=== PATIENT | female | born 1960 | race Caucasian/White ===

== ENCOUNTER → 2018-02-22 | Outpatient (CLI) | payer OTHER ==
[~2018-02-22] MED LIST: dandelion root; vinegar
--- NOTE | 2018-02-23 15:33 | ECHOCARDIOGRAM REPORT ---
*NOTICE TO RECEIVING REPUBLICAN AGENCY This information is strictly Confidential and protected under [place] law. [place] law prohibits you from making any further disclosure of this information unless further disclosure is expressly permitted by the written consent of the person to whom it pertains or is authorized by law. A general authorization for the release of medical or other information is not sufficient for this purpose. Hospital accepts no responsibility if the information is made available to any other person, INCLUDING THE PATIENT. Interpretation Summary * : HERB ALTAMIRANO Study Date: 02/22/2018 01:42 PM BP: 190/62 mmHg * Patient Location: [facility] HR: 72 * : 1960 (M/d/yyyy) Gender: Female Height: 64 in * Age: 57 yrs Ethnicity: [place] Weight: 155 lb * Ordering Physician: Allie Horn * Referring Physician: Allie Horn PA-C * Performed By: Ginger Becker RDCS * * Reason For Study: SYSTOLIC MURMUR * BSA: 1.8 m2 * -- Conclusions -- * 1. Normal LV size, borderline concentric LVH. * 2. LVEF >70%. No regional wall motion abnormalities. * 3. Normal RV size and function. * 4. Aortic valve sclerosis without stenosis. Procedure Details * A complete two-dimensional transthoracic echocardiogram was performed (2D, M-mode, Doppler and color flow Doppler). Left Ventricle * The left ventricle is grossly normal size. * There is borderline concentric left ventricular hypertrophy. * Ejection Fraction = >70 %. * No regional wall motion abnormalities noted. Right Ventricle * The right ventricle is grossly normal size. * The right ventricular systolic function is normal as assessed by tricuspid annular plane systolic excursion (TAPSE) (normal >1.5 cm). Atria * The left atrial size is normal. * Right atrial size is normal. * No ASD detected; PFO is not assessed. Mitral Valve * The mitral valve is grossly normal. * There is no mitral valve stenosis. * There is trace mitral regurgitation. Tricuspid Valve * Significant tricuspid regurgitation is absent. Aortic Valve * The aortic valve is trileaflet. * Aortic valve sclerosis mild, without significant aortic valvular stenosis. * No hemodynamically significant valvular aortic stenosis. * There is no significant aortic regurgitation. Pulmonic Valve * The pulmonary valve is inadequately visualized, but the Doppler data is adequate for interpretation. Great Vessels * The aortic root and proximal ascending aorta are normal sized. Pericardium/Pleural * There is no pericardial effusion. Great Vessels * Normal inferior vena cava size and collapsability with sniff indicates a normal right atrial pressure of 3 mmHg MMode 2D Measurements and Calculations IVSd 1.3 cm IVSs 1.7 cm LVIDd 3.7 cm LVIDs 2.6 cm LVPWd 1.1 cm LVPWs 1.4 cm IVS/LVPW 1.2 FS 29.1 % EDV(Teich) 59.3 ml ESV(Teich) 25.6 ml EF(Teich) 56.7 % EDV(cubed) 51.9 ml ESV(cubed) 18.5 ml EF(cubed) 64.4 % % IVS thick 27.9 % % LVPW thick 25.5 % LV mass(C)d 148.7 grams LV mass(C)dI 84.7 grams/m\S\2 LV mass(C)s 137.7 grams LV mass(C)sI 78.5 grams/m\S\2 SV(Teich) 33.6 ml SI(Teich) 19.2 ml/m\S\2 SV(cubed) 33.5 ml SI(cubed) 19.1 ml/m\S\2 Ao root diam 2.6 cm Ao root area 5.2 cm\S\2 LA dimension 3.7 cm LA/Ao 1.4 LVAd ap4 26.1 cm\S\2 LVLd ap4 8.1 cm EDV(MOD-sp4) 68.1 ml EDV(sp4-el) 71.8 ml LVAs ap4 14.8 cm\S\2 LVLs ap4 6.8 cm ESV(MOD-sp4) 26.7 ml ESV(sp4-el) 27.2 ml EF(MOD-sp4) 60.8 % EF(sp4-el) 62.1 % SV(MOD-sp4) 41.4 ml SI(MOD-sp4) 23.6 ml/m\S\2 SV(sp4-el) 44.6 ml SI(sp4-el) 25.4 ml/m\S\2 Doppler Measurements and Calculations MV E max andrew 108.9 cm/sec MV A max andrew 95.4 cm/sec MV E/A 1.1 MV dec time 0.26 sec Ao V2 max 195.0 cm/sec Ao max PG 15.2 mmHg Ao max PG (full) 7.9 mmHg LV V1 max PG 7.3 mmHg LV V1 max 135.5 cm/sec
== END | disposition home or self-care (01) ==
LOC: C.CPL 13:34
PROVIDERS: ATTEND Physician Assistant
DX: R01.1 Cardiac murmur, unspecified (principal)

== ENCOUNTER 2020-04-15 11:00 | Inpatient (IN) ==
[2020-04-15] MEDS ORDERED: THIAMINE HCL 200 MG in SODIUM CHLORIDE 0.9% 50 ML IV STA (11:13)
[2020-04-15] MEDS ORDERED: ONDANSETRON INJ 2 MG/ML 2 ML VIAL IV STA (11:13)
[2020-04-15] MEDS ORDERED: FOLIC ACID 1 MG in SYRINGE 9.8 ML IV STA (11:13)
[2020-04-15] MEDS ORDERED: SODIUM CHLORIDE 0.9% 1000ML 1,000 ML IV SCH (11:15)
[2020-04-15 11:39] LABS: Basophils # (auto) 0.01 K/uL (0-0.2); Basophils % (auto) 0.2 %; Hematocrit (blood only) 33.2 % (37-47); Hemoglobin 11.7 g/dL (12.0-16.0); Immature Granulocytes # (auto) 0.02 K/uL (0.00-0.02); Immature Granulocytes % (auto) 0.4 %; Lymphocytes # (auto) 0.58 K/uL (1.2-3.4); Lymphocytes % (auto) 11.1 %; Mean Corpuscular Hemoglobin 34.6 pg (25-34); Mean Corpuscular Hgb Conc 35.2 g/dL (32-36); Mean Corpuscular Volume 98.2 fL (80-100); Mean Platelet Volume 10.8 fL (7.4-10.4); Monocytes # (auto) 0.41 K/uL (0.11-0.59); Monocytes % (auto) 7.8 %; Neutrophils # (auto) 4.22 K/uL (1.4-6.5); Neutrophils % (auto) 80.5 %; Platelet Count 165 K/uL (130-400); RDW Coefficient of Variation 13.6 % (11.5-14.5); RDW Standard Deviation 48.4 fL (36.4-46.3); Red Blood Count 3.38 M/uL (4.2-5.4); White Blood Count 5.24 K/uL (4.8-10.8)
[2020-04-15 12:00] LABS: Alanine Aminotransferase 65 U/L (12-78); Albumin Level 2.9 gm/dl (3.4-5.0); Aspartate Aminotransferase 129 U/L (15-37); BUN Creatinine Ratio 8.6 (10-20); Blood Urea Nitrogen 7 mg/dl (7-18); Calcium 6.7 mg/dl (8.5-10.1); Carbon Dioxide 34 mmol/L (21-32); Chloride 83 mmol/L (98-107); Est GFR (African American) 93.5; Est GFR (Non-African American) 80.7; Glucose 234 mg/dl (70-99); Magnesium 0.6 mg/dl (1.8-2.4); Potassium 2.9 mmol/L (3.5-5.1); Sodium 128 mmol/L (136-145)
[2020-04-15 12:13] LABS: Albumin Globulin Ratio 0.7 (0.9-2); Alkaline Phosphatase 186 U/L (45-117); Bilirubin,Total 1.4 mg/dl (0.2-1); Phosphorus 3.2 mg/dl (2.5-4.9); Total Protein 6.9 gm/dl (6.4-8.2)
[2020-04-15] MEDS: MAGNESIUM SULFATE / D5W 1 GM/100 ML BAG IV STA ×2 (12:38→14:30)
[2020-04-15 12:39] LABS: T4 Free Thyroxine 1.38 ng/dl (0.8-1.6)
--- NOTE | 2020-04-15 12:40 | Emergency Department Note ---
Impression & Plan Alcohol withdrawal syndrome, Hypomagnesemia, Hypokalemia, Hyperglycemia, Hypocalcemia ED Provider Note NAME: HERB ALTAMIRANO AGE: 59 SEX: F : 1960 ARRIVES VIA: Walk-In INFORMANT: Patient, ED PROVIDER(S): Juan Manuel Burt MD Chief Complaint: Alcohol withdrawal shakiness HPI: Patient does present with concern for alcohol withdrawal and shakiness. Patient states that she is having some difficulty walking because of her shakiness. The patient typically drinks approximately one-point of vodka per day. The patient states that she has not had a drink since yesterday morning. The patient does admit to tobacco use. The patient has had some mild associated nausea but without vomiting. The patient denies fevers, chills, chest pains, shortness of breath. The patient ROS: See HPI for pertinent positives and negatives. A total of 10 systems were reviewed and otherwise negative. Past medical history: See below Surgical history: See below Social history: See below Physical Exam: GENERAL: Disheveled in appearance. Dirty hands. EYE EXAM: Normal conjunctiva. PERRL, no anisocoria and EOM's grossly intact w/o pain NECK: Supple, no nuchal rigidity, no adenopathy, non-tender. No signs of meningismus. LUNGS: Clear to auscultation. Normal chest wall mechanics. HEART: NSR, no MRG. ABDOMEN: Abdomen soft, non-tender, normo-active bowel sounds, no masses, no rebound or guarding. BACK: No CVA TTP. SKIN: No rashes and no bruising. UPPER EXTREMITIES: Bilateral upper extremity intention tremor noted. LOWER EXTREMITIES: Grossly normal, no edema. NEURO EXAM: Awake alert follows commands, tremulous, normal speech, moves all 4 extremities. Denies any sensory deficits. Differential diagnoses: Infection, dehydration, metabolic abnormality, hypo/hyperglycemia, electrolyte disturbance, anemia, hypoxia, cardiac sources, intracerebral event, toxicologic, neurologic, as well as other pathologies. Course: Patient was seen and evaluated the bedside. Full history physical exam was performed. EKG: Indication: Alcohol withdrawal Normal sinus rhythm, rate 85, prolonged QT normal KS and QRS, normal axis, no obvious ST changes. QT is lengthened from comparison EKG February 13, 2009. Imaging Studies: Radiology results as stated below per my review in the radiologist's interpretation: Cardiac monitoring: An order was placed for continuous cardiac monitoring. The monitor shows a rate of 95 with sinus rhythm. MDM: Patient does present with concern for alcohol withdrawal and shakiness. Patient did have blood work completed was ordered IV Valium 5 mg and then every 15 minutes as needed for withdrawal type symptoms. Patient has a normal white count. Patient has a very mild anemia with normal platelet count. Patient does have associated hypomagnesemia hypokalemia and hyponatremia. Patient was ordered additional IV fluids. Alcohol is negative. TSH is elevated. I did speak with the on-call hospitalist who agreed to further evaluate treat patient. Patient was admitted to the medicine service. Patient was ordered potassium and calcium. Critical Care: I have personally spent 40 minutes of critical care time in direct management of this patient. This includes bedside care, interpretation of diagnostic studies, and testing, discussion with consultants, patient, and family members, and other require inpatient management activities. This 40 minutes is in excess of all separately billable procedures. Past Med/Surg History Medical History Alcohol abuse Surgical History (Updated 04/15/20 @ 12:36 by Juan Manuel Burt MD) No pertinent past surgical history Social History (Updated 04/15/20 @ 12:36 by Juan Manuel Burt MD) Smoking Status: Current every day smoker Cigarettes Per Day: 20; Hx Alcohol Use: Yes Alcohol type: hard liquor Hx Substance Use: No Preferred Language: [place] Communication Ability: Effective Beliefs That Will Affect Care: None Current Living Situation: Significant Other Other Information That Helps Us Care for You: No Feels Safe at Home: Yes Safety Concerns: Feels Safe At This Time Allergies Allergies Allergy/AdvReac Type Severity Reaction Status Date / Time No Known Allergies Allergy Verified 04/15/20 13:40 Home Meds Home Medications Medication Instructions Recorded Confirmed No Known Home Medications 04/15/20 04/15/20 Results & Data (ED) Vital Signs Vital Signs - 24 hr 04/15/20 11:04 04/15/20 11:13 04/15/20 11:16 Temperature 36.5 C Temperature Source Oral Pulse Rate 107 H 97 H Pulse Rate from SpO2 Sensor 100 H Respiratory Rate 22 21 Respiratory Effort / Characteristics Non-Labored Spontaneous Respiratory Depth Normal Blood Pressure 154/83 H 198/83 H Blood Pressure Mean 106 146 Pulse Oximetry 100 99 100 Oxygen Delivery Method Room Air Room Air Sepsis Recent Fever Within 48 Hours No Sepsis New/Unexplained Change in Mental Status N/A Sepsis Action Taken by Nursing No Action Required 04/15/20 11:34 04/15/20 12:00 04/15/20 12:30 Temperature Temperature Source Pulse Rate 95 H 85 86 Pulse Rate from SpO2 Sensor 85 86 Respiratory Rate 23 18 23 Respiratory Effort / Characteristics Respiratory Depth Blood Pressure 164/95 H 157/83 H 136/74 Blood Pressure Mean 119 98 92 Pulse Oximetry 99 99 99 Oxygen Delivery Method Sepsis Recent Fever Within 48 Hours Sepsis New/Unexplained Change in Mental Status Sepsis Action Taken by Nursing 04/15/20 13:00 Temperature Temperature Source Pulse Rate 86 Pulse Rate from SpO2 Sensor 87 Respiratory Rate 18 Respiratory Effort / Characteristics Respiratory Depth Blood Pressure 158/89 H Blood Pressure Mean 112 Pulse Oximetry 99 Oxygen Delivery Method Sepsis Recent Fever Within 48 Hours Sepsis New/Unexplained Change in Mental Status Sepsis Action Taken by Half-Way Medications Current Medication List: was personally reviewed by me Laboratory Data Result diagrams: 04/15/20 11:22 04/15/20 11:22 Lab Results 04/15/20 04/15/20 04/15/20 Range/Units 11:22 11:22 11:28 WBC 5.24 (4.8-10.8) K/uL RBC 3.38 L (4.2-5.4) M/uL Hgb 11.7 L (12.0-16.0) g/dL Hct 33.2 L (37-47) % MCV 98.2 (80-100) fL MCH 34.6 H (25-34) pg MCHC 35.2 (32-36) g/dL RDW Std Deviation 48.4 H (36.4-46.3) fL RDW Coeff of Francis 13.6 (11.5-14.5) % Plt Count 165 (130-400) K/uL MPV 10.8 H (7.4-10.4) fL Immature Gran % (Auto) 0.4 % Neut % (Auto) 80.5 % Lymph % (Auto) 11.1 % Beauregard % (Auto) 7.8 % Eos % (Auto) 0.0 % Baso % (Auto) 0.2 % Neut # (Auto) 4.22 (1.4-6.5) K/uL Lymph # (Auto) 0.58 L (1.2-3.4) K/uL Beauregard # (Auto) 0.41 (0.11-0.59) K/uL Eos # (Auto) 0.00 (0-0.5) K/uL Baso # (Auto) 0.01 (0-0.2) K/uL Immature Gran # (Auto) 0.02 (0.00-0.02) K/uL Sodium 128 L (136-145) mmol/L Potassium 2.9 L (3.5-5.1) mmol/L Chloride 83 L (98-107) mmol/L Carbon Dioxide 34 H (21-32) mmol/L Anion Gap 11.0 (3-11) BUN 7 (7-18) mg/dl Creatinine 0.80 (0.6-1.2) mg/dl Est Cr Clr Drug Dosing Not Reportable Est GFR ( Amer) 93.5 Est GFR (Non-Af Amer) 80.7 BUN/Creatinine Ratio 8.6 L (10-20) Glucose 234 H (70-99) mg/dl Calcium 6.7 L (8.5-10.1) mg/dl Phosphorus 3.2 (2.5-4.9) mg/dl Magnesium 0.6 L* (1.8-2.4) mg/dl Total Bilirubin 1.4 H (0.2-1) mg/dl AST 129 H (15-37) U/L ALT 65 (12-78) U/L Alkaline Phosphatase 186 H (45-117) U/L Total Protein 6.9 (6.4-8.2) gm/dl Albumin 2.9 L (3.4-5.0) gm/dl Globulin 4.0 (2.5-4.0) gm/dl Albumin/Globulin Ratio 0.7 L (0.9-2) TSH 5.180 H (0.300-4.500) uIu/ml Free T4 1.38 (0.8-1.6) ng/dl Ethyl Alcohol mg/dL < 3.0 (0-3) mg/dl Administered Medications Diazepam (Diazepam 5 Mg/Ml Inj 10ml Vial) 5 mg IV Q15M PRN PRN Reason: Alcohol Withdrawal Stop: 05/15/20 11:26 Last Admin: 04/15/20 14:28 Dose: 5 mg Documented by: [id number] Potassium Chloride (K [place] / Wtr) 10 meq in 100 mls @ 100 mls/hr IV Q1H MARYBETH Stop: 04/15/20 16:14 Last Admin: 04/15/20 14:34 Dose: 100 mls/hr Documented by: [id number] Discontinued Medications Diazepam (Diazepam 5 Mg/Ml Inj 10ml Vial) 5 mg IV NOW STA Stop: 04/15/20 11:28 Last Admin: 04/15/20 11:34 Dose: 5 mg Documented by: [id number] Sodium Chloride (Nss 1000ml) 1,000 mls @ 999 mls/hr IV .Q1H1M MARYBETH Stop: 04/15/20 12:15 Last Infusion: 04/15/20 12:36 Dose: 0 mls/hr Documented by: [id number] Admin: 04/15/20 11:35 Dose: 999 mls/hr Documented by: [id number] Folic Acid 1 mg/ Syringe 10 mls @ 5 mls/min IV NOW STA Stop: 04/15/20 11:14 Last Admin: 04/15/20 11:37 Dose: 5 mls/min Documented by: [id number] Thiamine HCl 200 mg/ Sodium (Chloride) 52 mls @ 208 mls/hr IV NOW STA Stop: 04/15/20 11:27 Last Infusion: 04/15/20 11:53 Dose: 0 mls/hr Documented by: [id number] Admin: 04/15/20 11:38 Dose: 208 mls/hr Documented by: [id number] Magnesium Sulfate/Dextrose (Magnesium Sulfate / D5w) 1 gm in 100 mls @ 50 mls/hr IV Q2H STA Stop: 04/15/20 14:32 Last Admin: 04/15/20 14:30 Dose: 100 mls/hr Documented by: [id number] Infusion: 04/15/20 14:30 Dose: 0 mls/hr Documented by: [id number] Admin: 04/15/20 12:38 Dose: 50 mls/hr Documented by: [id number] Ondansetron HCl (Ondansetron Inj 2 Mg/Ml 2 Ml Vial) 4 mg IV NOW STA Stop: 04/15/20 11:14 Last Admin: 04/15/20 11:34 Dose: 4 mg Documented by: [id number] Discharge Plan Visit Data Chief Complaint: Alcohol Withdrawal Stated Complaint: ALCOHOLIC, SHAKING, CANT WALK ED Provider: Juan Manuel Burt Discharge Problem: Alcohol withdrawal syndrome, Hypomagnesemia, Hypokalemia, Hyperglycemia, Hypocalcemia Forms Stand Alone Forms: [employer] Prescriptions Prescriptions: No Action No Known Home Medications RF: 0 Discharge Problem: Alcohol withdrawal syndrome Qualifiers: Complication of substance-induced condition: uncomplicated Qualified Code(s): F10.230 - Alcohol dependence with withdrawal, uncomplicated
[2020-04-15] MEDS ORDERED: CALCIUM GLUCONATE 10% 10 ML VIAL IV STA (14:14)
[2020-04-15] MEDS: POTASSIUM CHLORIDE / WTR 10 MEQ/100 ML PLCT IV SCH ×5 (14:34→22:05)
--- NOTE | 2020-04-15 15:29 | History & Physical Report ---
Date of Service April 15, 2020 Assessment & Plan (1) Alcohol withdrawal syndrome: Mildly agitated on exam. Ethanol level negative on admission. AWSS, lorazepam IV 1-3mg as needed per protocol. Will also treat with gabapentin to help with peripheral neuropathy in addition to alcohol withdrawal. (2) Hypokalemia: No significant EKG abnormalities with potassium 2.9. Potassium chloride 20 meq IV given in ER. Add 40 meq PO. Repeat BMP @ 16:00. (3) Hypocalcemia: 2 g calcium gluconate IV given in ER. Continue to monitor with BMP. (4) Hypomagnesemia: Magnesium level 0.6 on admission. Unclear if tremors are due to this versus alcohol withdrawal. Mg Sulphate 4g IV started in ER. Will repeat with AM labs. (5) Chronic alcohol use: Significantly malnourished. Will get daily phosphorus levels as possibly at risk for refeeding syndrome. Once potassium is more stable. (6) Abnormal gait: Likely affected by peripheral neuropathy. Difficult to rule out Wernicke's encephalopathy and will prophylactically treat with 200 mg IV thiamine 3 times daily. PT/OT eval and treat. (7) Hypertension: Prior history of this. On no outpatient medication. Treatment deferred on admission until electrolyte abnormalities corrected. (8) Peripheral neuropathy: B12 level with a.m. labs Suspect secondary to diabetes, gabapentin should help as above. Consider continuation of gabapentin beyond alcohol withdrawal treatment. (9) Type 2 diabetes mellitus: Unknown HbA1c. Hypoglycemia on admission. Treatment with insulin deferred until potassium increased and stable. (10) Tinea pedis: Clotrimazole cream twice daily (11) Sacral decubitus ulcer, stage IV: Consult wound care nurse. (12) Tobacco use: Declined nicotine replacement products at this time. (13) Contact dermatitis: Irritant dermatitis versus on bilateral lower extremities. Appearance and normal WBC would favor the former diagnosis therefore area has been marked and will monitor for expansion. Blood cultures taken. (14) Left leg swelling: Ultrasound venous Doppler to rule out DVT. (15) DVT prophylaxis: No SCDs due to significant peripheral neuropathy. We will dose Lovenox pending results of ultrasound Doppler as above. Admission and Anticipated Discharge Date Admission Date: April 15, 2020 History of Present Illness Chief Complaint: Alcohol withdrawal Primary Care Provider: Allie Horn PA-C Sumaya Marquez is a 59-year-old female who presents to the ER due to concerns for alcohol withdrawal. She reports drinking a pint of vodka per day. She has done this for many years. She reports her last drink was 2 days ago. She feels she wants to give up permanently. She offers no reason what prompted her to suddenly want to give up alcohol. She has never tried to give up alcohol before. She has no history of alcohol withdrawal seizures. Her alcohol consumption has increased in the last 2 years. She reports a willingness to go to alcohol rehabilitation. She declines me contacting any family or friends. She has been struggling now to get around for the last week with increased ambulatory dysfunction which she feels is unrelated to alcohol intoxication. She is aware she has diabetes but reports previously not wishing treatment for this as her mother took insulin and suffered with episodes of hypoglycemia and " ended up dying anyway". She reports having a peripheral neuropathy up to her knees and does not think this can get any worse therefore also wonders whether treatment for diabetes would be worthwhile. She notes her peripheral neuropathic pain is a large reason why she drinks alcohol. She denies ever having tried gabapentin. In the ER she was noted to have significant hypocalcemia, hypomagnesemia, hypokalemia, hyponatremia, hyperglycemia -treated with 2 g IV calcium gluconate, 4 g IV magnesium sulfate, 20 meq IV potassium chloride, NSS 1 L bolus. In addition she was given thiamine 200 mg IV. Valium 5mg IV x2 given for alcohol withdrawal. She was referred to medicine for ongoing management and admission. Allergies Allergy/AdvReac Type Severity Reaction Status Date / Time No Known Allergies Allergy Verified 04/15/20 13:40 Home Medications Home Medications Medication Instructions Recorded Confirmed Type No Known Home Medications 04/15/20 04/15/20 History Past Med/Surg History Medical History Alcohol abuse Hypertension Peripheral neuropathy Tinea pedis Type 2 diabetes mellitus Surgical History No pertinent past surgical history Social History Smoking Status: Current every day smoker Cigarettes Per Day: 20; Hx Alcohol Use: Yes Alcohol type: hard liquor Hx Substance Use: No Preferred Language: Slovenian Communication Ability: Effective Beliefs That Will Affect Care: None Current Living Situation: Significant Other Other Information That Helps Us Care for You: No Feels Safe at Home: Yes Safety Concerns: Feels Safe At This Time Review of Systems Review of Systems: All systems reviewed & are unremarkable except as noted in HPI & below Constitutional: + body aches and + fatigue; no chills Musculoskeletal: Difficulty dorsiflexing bilateral ankles Neurologic: + paresthesia Physical Exam Constitutional: + frail appearing, + disheveled and + malnourished; + not well nourished and no acute distress Eyes: PERRL, conjunctivae normal, anicteric sclerae EOM intact bilaterally (No diplopia); no nystagmus ENMT: Mouth: + dry oral mucous membranes and + poor dentition Neck: trachea midline Respiratory: normal respiratory effort, lungs clear to auscultation Cardiovascular: Rate/Rhythm: regular rate and regular rhythm Heart Sounds: no murmur Extremities: normal capillary refill (Bilateral feet), + calf tenderness (Bilateral) and + pedal edema (Trace bilateral ankles R > L) Gastrointestinal (Abdomen): normal bowel sounds, soft, nontender, no hepatosplenomegaly Musculoskeletal: Head/Neck/Chest: normocephalic and head atraumatic Skin: + rash (Bilateral lower extremity area marked distal to both knees, suspected irritant/contact dermatitis, less likely cellulitis), + ulcer (Stage IV sacral ulcer without surrounding cellulitis), + wound (Multiple on all 4 extremities with scabbing), + nails discolored and + nails dystrophic (Onychomycosis) Large amount of tinea pedis with associated skin maceration bilaterally Neurologic: moves all extremities, + focal motor deficit (Bilateral difficulty with dorsiflexion) and awake; not confused Speech / Cognition: normal speech Motor/Sensory: + tremor (Bilateral action) and + sensory deficit (Up to knees bilaterally with significant pain); no pronator drift Cranial Nerves: PERRL, EOM intact bilaterally, normal facial strength, tongue midline, able to rotate head bilaterally, able to elevate shoulders bilaterally, no nystagmus and symmetric palate elevation Lymphatic: no cervical or axillary lymphadenopathy Results & Data Results & Data ([facility]) Vital Signs (Past 12 Hours) Vital Signs Temp Pulse Resp BP Pulse Ox 04/15/20 15:01 89 15 153/83 H 94 04/15/20 14:30 82 20 132/75 96 04/15/20 14:00 85 20 154/73 H 99 04/15/20 13:31 90 18 133/98 100 04/15/20 13:00 86 18 158/89 H 99 04/15/20 12:30 86 23 136/74 99 04/15/20 12:00 85 18 157/83 H 99 04/15/20 11:34 95 H 23 164/95 H 99 04/15/20 11:16 97 H 21 198/83 H 100 04/15/20 11:13 99 04/15/20 11:04 36.5 C 107 H 22 154/83 H 100 ECG Indication: other (Hypokalemia) Rate (beats per minute): 85 Rhythm: normal sinus Findings: + prolonged QT (QTc 476 ms) Comparison ECG Date: from (February 13, 2009) Change: the following changes noted (QT interval lengthened) Code Status & VTE Plan Code Status Full VTE Prophylaxis Plan VTE Prophylaxis will be ordered: Yes Reason for no VTE mechanical prophylaxis: Contraindicated PG Care Time/CCT Total # of Minutes Spent Total Time Spent with Patient: Total time spent is greater than 50% in coordination of care (as documented) at patient's floor/unit and/or counseling patient: Coding Level of Care Code 65948 Initial Inpt Care Lvl 3 Diagnoses Alcohol withdrawal syndrome F10.230 Complication of substance-induced condition: uncomplicated Hypokalemia E87.6 Hypocalcemia E83.51 Hypomagnesemia E83.42 Chronic alcohol use Z72.89 Abnormal gait R26.9 Hypertension I10 Peripheral neuropathy G62.9 Type 2 diabetes mellitus E11.9 Tinea pedis B35.3 Sacral decubitus ulcer, stage IV L89.154 Tobacco use Z72.0 Contact dermatitis L25.9 Left leg swelling M79.89 DVT prophylaxis Z29.9 (1) Alcohol withdrawal syndrome Complication of substance-induced condition: uncomplicated Qualified Code(s): F10.230 - Alcohol dependence with withdrawal, uncomplicated
[2020-04-15] MEDS ORDERED: POTASSIUM CHLORIDE 20 MEQ TABCR PO STA ×2 (15:33→17:38)
[2020-04-15] MEDS ORDERED: FAMOTIDINE 20MG IV PUSH 20 MG/5 ML SYR IV STA (15:33)
[2020-04-15 16:23] LABS: INR 1.4 (0.9-1.1); Prothrombin Time 14.5 Seconds (9.0-12.0)
[2020-04-15] MEDS ORDERED: GABAPENTIN 800MG ALCOHOL WITHDRAWAL LOAD PO STA (16:28)
[2020-04-15] MEDS ORDERED: D5W AND 1/2NSS 1,000 ML IV SCH (16:28)
[2020-04-15] MEDS ORDERED: ACETAMINOPHEN 325 MG TAB PO PRN (16:28)
[2020-04-15] MEDS ORDERED: ATIVAN IV ALCOHOL WITHDRAWL IV PRN (16:28)
[2020-04-15] MEDS ORDERED: LORazepam 3 MG/6 ML VIAL IV PRN (16:28)
[2020-04-15] MEDS ORDERED: LORazepam 2 MG/4 ML VIAL IV PRN (16:28)
[2020-04-15 16:34] LABS: Alanine Aminotransferase 65 U/L (12-78); Albumin Globulin Ratio 0.7 (0.9-2); Albumin Level 2.8 gm/dl (3.4-5.0); Alkaline Phosphatase 181 U/L (45-117); Aspartate Aminotransferase 124 U/L (15-37); BUN Creatinine Ratio 8.8 (10-20); Bilirubin,Total 1.3 mg/dl (0.2-1); Blood Urea Nitrogen 6 mg/dl (7-18); C Reactive Protein 2.24 mg/dl (0-0.29); Calcium 7.5 mg/dl (8.5-10.1); Carbon Dioxide 32 mmol/L (21-32); Chloride 85 mmol/L (98-107); Est GFR (African American) 113.2; Est GFR (Non-African American) 97.7; Globulin 4.2 gm/dl (2.5-4.0); Glucose 171 mg/dl (70-99); Potassium 2.5 mmol/L (3.5-5.1); Sodium 130 mmol/L (136-145)
[2020-04-15] MEDS: CLOTRIMAZOLE 1% CR 15 GM TUBE EXT SCH (17:07)
[2020-04-15] MEDS ORDERED: DEXTROSE 50% 50 ML SYRINGE IV PRN (17:57)
[2020-04-15] MEDS ORDERED: GLUCAGON FOR INJ 1 MG VIAL SQ PRN (17:57)
[2020-04-15] MEDS ORDERED: GLUCOSE 10 TABS/TUBE PO PRN (17:57)
[2020-04-15] MEDS ORDERED: GLUCOSE 40% GEL 15 GM TUBE PO PRN (17:57)
[2020-04-15] MEDS ORDERED: CARBOHYDRATES FOR HYPOGLYCEMIA PO PRN (17:57)
[2020-04-15] MEDS ORDERED: GABAPENTIN 400 MG CAP PO ONE (18:00)
[2020-04-15 19:54] LABS: Appearance Urine Clear (Clear); Bacteria Urine Automated Negative (Negative); Bilirubin Urine Negative (Negative); Blood Urine Negative (Negative); Cast Urine Automated 0 /lpf (0-5); Color Urine Yellow; Epithelial Cell Urine Auto >30 /lpf (0-5); Glucose Urine UA 1+ (Negative); Ketones Urine Negative (Negative); Leukocyte Esterase Urine Negative (Negative); Nitrite Urine Negative (Negative); RBC Urine Automated 0-4 /hpf (0-4); Specific Gravity Urine 1.008 (1.000-1.030); Urobilinogen Urine Negative (Negative); pH Urine 7.5 (4.5-7.5)
[2020-04-15] MEDS: THIAMINE HCL 200 MG in SODIUM CHLORIDE 0.9% 50 ML IV SCH (19:55)
--- NOTE | 2020-04-15 20:03 | Electrocardiogram Report ---
Test Reason : Blood Pressure : / mmHG Vent. Rate : 085 BPM Atrial Rate : 085 BPM P-R Int : 138 ms QRS Dur : 074 ms QT Int : 400 ms P-R-T Axes : 030 034 058 degrees QTc Int : 476 ms Normal sinus rhythm Nonspecific ST and T wave abnormality Prolonged QT Abnormal ECG When compared with ECG of 13-FEB-2009 06:50, QT has lengthened Confirmed by Gonzalo Brito ([id number]) on 04/15/2020 8:02:38 PM Referred By: REFERRED SELF Confirmed By:Kj Brito
[2020-04-15 20:09] LABS: Protein Urine Negative (Negative); Sulfosalicylic Acid Urine Negative (Negative)
[2020-04-15 23:32] LABS: BUN Creatinine Ratio 6.2 (10-20); Calcium 6.2 mg/dl (8.5-10.1); Creatinine Clr Calc Pharmacy 73.7 ml/min; Est GFR (African American) 108.1; Est GFR (Non-African American) 93.2; Potassium 3.1 mmol/L (3.5-5.1)
[2020-04-16] MEDS ORDERED: PHYTONADIONE 5 MG TAB PO STA (00:07)
[2020-04-16] MEDS ORDERED: CALCIUM GLUCONATE 10% 2,000 MG in SODIUM CHLORIDE 0.9% 50 ML IV ONE (00:08)
[2020-04-16] MEDS: POTASSIUM CHLORIDE 40 MEQ in SODIUM CHLORIDE 0.45 % 1,000 ML IV SCH ×3 (00:46→21:34)
[2020-04-16] MEDS: GABAPENTIN 400 MG CAP PO SCH ×4 (00:47→21:34)
[2020-04-16 07:17] LABS: INR 1.4 (0.9-1.1); Prothrombin Time 14.1 Seconds (9.0-12.0)
[2020-04-16 07:48] LABS: Estimated Average Glucose 177 mg/dl; Hemoglobin A1C 7.8 % (4.5-5.6)
[2020-04-16 08:03] LABS: Albumin Globulin Ratio 0.7 (0.9-2); Albumin Level 2.6 gm/dl (3.4-5.0); Bilirubin,Total 1.1 mg/dl (0.2-1); Calcium 7.3 mg/dl (8.5-10.1); Creatinine Clr Calc Pharmacy 84.4 ml/min; Est GFR (African American) 114.4; Est GFR (Non-African American) 98.7; Globulin 3.7 gm/dl (2.5-4.0); Magnesium 1.5 mg/dl (1.8-2.4); Phosphorus 2.2 mg/dl (2.5-4.9); Potassium 3.5 mmol/L (3.5-5.1); Total Protein 6.3 gm/dl (6.4-8.2)
--- NOTE | 2020-04-16 08:18 | Ultrasound Report ---
LEFT LOWER EXTREMITY VENOUS DOPPLER HISTORY: Left lower extremity pain. COMPARISON STUDY: None. FINDINGS: There is normal compressibility, flow, and augmentation within the left lower extremity kelly p venous system. IMPRESSION: No DVT within the left lower extremity. ACT 112: Negative or not required by law. Electronically signed by: Shree Santiago M.D. 04/16/2020 8:17 AM
[2020-04-16] MEDS: THIAMINE HCL 200 MG in SODIUM CHLORIDE 0.9% 50 ML IV SCH ×3 (09:05→21:37)
[2020-04-16] MEDS: CLOTRIMAZOLE 1% CR 15 GM TUBE EXT SCH ×2 (09:11→21:34)
--- NOTE | 2020-04-16 09:23 | Hospitalist Progress Note ---
Date of Service April 16, 2020 Assessment & Plan (1) Alcohol withdrawal syndrome: Mildly agitated on exam. Ethanol level negative on admission. Continues with lorazepam and gabapentin. Clonidine added for hypertension which also can help her alcohol withdrawal (2) Bacteremia: Pt with both Gram positive and negative bacteria on blood cultures, suspect skin as source, will use vancomycin and Cefepime at this point pending further sensitivities check echo with Gram positive in blood repeat cultures once on antibiotics for 24 hours (3) Hypokalemia: Likely from poor nutritional status continue with intravenous repletion (4) Hypocalcemia: secondary to poor nutritional status, was given calcium, remains low (5) Hypomagnesemia: persists, additional supplement iv on 04/16 (6) Chronic alcohol use: continue to replete nurtition, thiamine given daily (7) Abnormal gait: Likely affected by peripheral neuropathy. Difficult to rule out Wernicke's encephalopathy and will prophylactically treat with 200 mg IV thiamine 3 times daily. PT/OT eval and treat. (8) Hypertension: Prior history of this. On no outpatient medication. (9) Peripheral neuropathy: B12 level replete Suspect secondary to diabetes, gabapentin should help as above. Consider continuation of gabapentin beyond alcohol withdrawal treatment. (10) Type 2 diabetes mellitus: A1c 7.8 offer sliding scale insulin (11) Tinea pedis: Clotrimazole cream twice daily (12) Tobacco use: Declined nicotine replacement products at this time. (13) Left leg swelling: Ultrasound venous Doppler negative for DVT. (14) DVT prophylaxis: No SCDs due to significant peripheral neuropathy. Lovenox for DVT prevention anticipate need for shelter facility at time of discharge Admission and Anticipated Discharge Date Admission Date: April 15, 2020 Subjective Patient slightly agitated she is not in much discomfort, her cellulitis has markedly improved she is still very weak, too weak to get to bedside commode Review of Systems Review of Systems: Mild distress and fatigue no headache, blurry or double vision no speech or swallowing issues no chest pain, pressure or palpitations no shortness of breath, cough or wheezes Diffuse mild pain some bloating and distention no focal joint pain or swelling no back pain, CVA tenderness or radicular pain Decubitus ulcer in her perineal area right greater trochanter and lower legs Significantly weakness to her lower extremities no complaints or anxiety or depression. Physical Exam Physical Exam: The patient appeared well nourished and normally developed. Vital signs as documented. Head exam is normocephalic atraumatic no scleral icterus Neck is without JVD, thyromegaly, or carotid bruits. Lungs are clear but diminished throughout Cardiac exam, Rhythm is regular.. No murmurs, rubs or gallops. Abdominal exam reveals normal bowel sounds, soft distended tympanitic and mildly tender Extremities are nonedematous and both lines of demarcation previously drawn showed no evidence of residual erythema Neurologic exam is alert and oriented, some tremor and anxiety Skin is with a 2-3 decubitus ulcer in her perineal area there is a eschar on her right greater trochanter area and multiple open areas to her lower extremities with significant onychomycosis with periungual irritation Psychologically is with terms of anxiety and alcohol withdrawal Results & Data Results & Data ([facility]) Vital Signs (Past 12 Hours) Vital Signs Temp Pulse Pulse Resp BP Pulse Ox 04/16/20 08:59 98.6 F 95 H 18 169/79 H 99 04/16/20 07:21 98.4 F 79 18 156/79 H 99 04/16/20 03:10 98.1 F 74 18 156/81 H 97 04/16/20 00:07 73 04/15/20 23:12 98.2 F 69 20 161/77 H 99 PG Care Time/CCT Total # of Minutes Spent Total Time Spent with Patient: Total time spent is greater than 50% in coordination of care (as documented) at patient's floor/unit and/or counseling patient: Coding Level of Care Code 95032 Subseq Hosp Care Lvl 3 Diagnoses Alcohol withdrawal syndrome F10.230 Complication of substance-induced condition: uncomplicated Bacteremia R78.81 Hypokalemia E87.6 Hypocalcemia E83.51 Hypomagnesemia E83.42 Chronic alcohol use Z72.89 Abnormal gait R26.9 Hypertension I10 Peripheral neuropathy G62.9 Type 2 diabetes mellitus E11.9 Tinea pedis B35.3 Tobacco use Z72.0 Left leg swelling M79.89 DVT prophylaxis Z29.9 (1) Alcohol withdrawal syndrome Complication of substance-induced condition: uncomplicated Qualified Code(s): F10.230 - Alcohol dependence with withdrawal, uncomplicated
[2020-04-16] MEDS ORDERED: VANCOMYCIN CONSULT ACTIVE PRN (09:24)
[2020-04-16] MEDS ORDERED: cloNIDine HCL 0.1 MG TAB PO PRN (09:30)
[2020-04-16] MEDS ORDERED: VANCOMYCIN HCL 1,500 MG in SODIUM CHLORIDE 0.9% 500 ML IV STA (09:34)
--- NOTE | 2020-04-16 09:37 | Electrocardiogram Report ---
Test Reason : Blood Pressure : / mmHG Vent. Rate : 083 BPM Atrial Rate : 083 BPM P-R Int : 144 ms QRS Dur : 076 ms QT Int : 408 ms P-R-T Axes : -27 039 055 degrees QTc Int : 479 ms Normal sinus rhythm Normal ECG When compared with ECG of 15-APR-2020 11:54, No significant change was found Confirmed by Robin Husain ([id number]) on 04/16/2020 9:36:35 AM Referred By: REFERRED SELF Confirmed By:Robin Husain
[2020-04-16] MEDS: MAGNESIUM SULFATE / D5W 1 GM/100 ML BAG IV SCH ×2 (09:54→12:03)
[2020-04-16] MEDS: CEFEPIME 2,000 MG in SYRINGE 0 ML IV SCH ×2 (09:54→18:13)
[2020-04-16] MEDS: ENOXAPARIN INJ 40 MG/0.4 ML SYR SQ SCH (10:25)
--- NOTE | 2020-04-16 11:23 | Pharmacy Report ---
Pharmacy Abx Dose Short Note - Date of Service April 16, 2020 - Assessment & Plan Assessment * Ms Marquez is a 59 year old F receiving Vancomycin/Cefepime for treatment of bacteremia (suspected d/t skin source -- pt with sacral decubitus ulcer and also b/l LE dermatitis). * PMH is significant for DM, EtOH abuse, current smoker, ,tinea pedis. Plan Vancomycin * Patient meets criteria for vancomycin AUC dosing nomogram * AUC/NASIM is the preferred PK/PD target for vancomycin * Target AUC/NASIM = 400-600 * AUC guided dosing is effective and associated with decreased risk of nephrotoxicity * Vancomycin 1500mg IV x1, followed by 1250mg IV q12h * Trough level ordered for: 04/18 prior to the 4th maintenance dose Cefepime 2gm IV q8h Pharmacy will continue to follow and will adjust dose/frequency as necessary. Thank you.
--- NOTE | 2020-04-16 12:54 | XCELERA ---
[id number]
[2020-04-16] MEDS ORDERED: ALUMINUM/MAGNESIUM SUSP 30 ML UDC PO PRN (17:11)
[2020-04-16] MEDS: VANCOMYCIN HCL 1,250 MG in SODIUM CHLORIDE 0.9% 250 ML IV SCH (21:37)
[2020-04-17] MEDS: CEFEPIME 2,000 MG in SYRINGE 0 ML IV SCH ×3 (03:13→18:34)
[2020-04-17] MEDS: GABAPENTIN 400 MG CAP PO SCH ×2 (05:55→18:55)
[2020-04-17 07:41] LABS: Magnesium 1.3 mg/dl (1.8-2.4); Phosphorus 1.4 mg/dl (2.5-4.9)
[2020-04-17] MEDS: POTASSIUM CHLORIDE 40 MEQ in SODIUM CHLORIDE 0.45 % 1,000 ML IV SCH ×2 (07:52→18:34)
[2020-04-17] MEDS: THIAMINE HCL 200 MG in SODIUM CHLORIDE 0.9% 50 ML IV SCH ×3 (08:42→20:21)
[2020-04-17] MEDS: CLOTRIMAZOLE 1% CR 15 GM TUBE EXT SCH ×2 (08:42→19:58)
[2020-04-17] MEDS: ENOXAPARIN INJ 40 MG/0.4 ML SYR SQ SCH (08:42)
[2020-04-17 10:14] LABS: Albumin Globulin Ratio 0.7 (0.9-2); Albumin Level 2.2 gm/dl (3.4-5.0); BUN Creatinine Ratio 9.1 (10-20); Calcium 6.6 mg/dl (8.5-10.1); Creatinine Clr Calc Pharmacy 91.8 ml/min; Est GFR (African American) 117.6; Est GFR (Non-African American) 101.5; Globulin 3.3 gm/dl (2.5-4.0); Potassium 4.5 mmol/L (3.5-5.1); Total Protein 5.5 gm/dl (6.4-8.2)
[2020-04-17] MEDS ORDERED: SODIUM PHOSPHATE 3 MMOL/1 ML INFUSION IV STA (11:07)
[2020-04-17] MEDS ORDERED: SODIUM PHOSPHATE 21 MMOL in SODIUM CHLORIDE 0.9% 500 ML IV ONE (11:30)
[2020-04-17] MEDS: VANCOMYCIN HCL 1,250 MG in SODIUM CHLORIDE 0.9% 250 ML IV SCH ×2 (14:55→16:07)
--- NOTE | 2020-04-17 15:26 | Hospitalist Progress Note ---
Date of Service April 17, 2020 Assessment & Plan (1) Alcohol withdrawal syndrome: much more calm and cooperative Continues with lorazepam and gabapentin. Clonidine added for hypertension which also can help her alcohol withdrawal (2) Bacteremia: Pt with both Gram positive and negative bacteria on blood cultures, suspect skin as source, will use vancomycin and await further sensitivities transthoracic echo shows some valvular changes but similar to old echo repeat blood cultures, check esr will need 2 weeks of antibiotics, will need to make choices for snf ease of access (3) Hypokalemia: Likely from poor nutritional status continue with intravenous repletion, and phosphorous (4) Hypocalcemia: secondary to poor nutritional status, was given calcium, remains low (5) Hypomagnesemia: persists, additional supplement iv on 04/17 (6) Chronic alcohol use: continue to replete nurtition, thiamine given daily (7) Abnormal gait: Likely affected by peripheral neuropathy. Difficult to rule out Wernicke's encephalopathy and will prophylactically treat with 200 mg IV thiamine 3 times daily. PT/OT eval and treat. (8) Hypertension: Prior history of this. On no outpatient medication. (9) Peripheral neuropathy: B12 level replete Suspect secondary to diabetes, gabapentin should help as above. Consider continuation of gabapentin beyond alcohol withdrawal treatment. (10) Type 2 diabetes mellitus: A1c 7.8 offer sliding scale insulin (11) Tinea pedis: Clotrimazole cream twice daily, this is significant and will need podiatry referral (12) Tobacco use: Declined nicotine replacement products at this time. (13) Left leg swelling: Ultrasound venous Doppler negative for DVT. (14) DVT prophylaxis: No SCDs due to significant peripheral neuropathy. Lovenox for DVT prevention anticipate need for residential facility at time of discharge [facility] covid for snf placement (15) Decubitus ulcer: present on admission to perineal area and right greater trochanteric area, wound care is visiting, could be source of bacteremia Admission and Anticipated Discharge Date Admission Date: April 15, 2020 Review of Systems Review of Systems: Mild distress and fatigue no headache, blurry or double vision no speech or swallowing issues no chest pain, pressure or palpitations no shortness of breath, cough or wheezes Diffuse mild pain some bloating and distention no focal joint pain or swelling no back pain, CVA tenderness or radicular pain Decubitus ulcer in her perineal area right greater trochanter and lower legs Significantly weakness to her lower extremities no complaints or anxiety or depression. Physical Exam Physical Exam: The patient appeared well nourished and normally developed. Vital signs as documented. Head exam is normocephalic atraumatic no scleral icterus Neck is without JVD, thyromegaly, or carotid bruits. Lungs are clear but diminished throughout Cardiac exam, Rhythm is regular.. No murmurs, rubs or gallops. Abdominal exam reveals normal bowel sounds, soft distended tympanitic and mildly tender Extremities are nonedematous and both lines of demarcation previously drawn showed no evidence of residual erythema Neurologic exam is alert and oriented, some tremor and anxiety Skin is with a 2-3 decubitus ulcer in her perineal area there is a eschar on her right greater trochanter area and multiple open areas to her lower extremities with significant onychomycosis with periungual irritation Psychologically is with terms of anxiety and alcohol withdrawal Results & Data Results & Data ([facility]) Vital Signs (Past 12 Hours) Vital Signs Temp Pulse Pulse Resp BP Pulse Ox 04/17/20 11:24 98.1 F 85 18 123/74 100 04/17/20 10:27 72 04/17/20 07:23 97.9 F 72 19 170/90 H 98 04/17/20 03:49 98.2 F 69 16 167/88 H 98 PG Care Time/CCT Total # of Minutes Spent Total Time Spent with Patient: Total time spent is greater than 50% in coordination of care (as documented) at patient's floor/unit and/or counseling patient: Coding Level of Care Code 45392 Subseq Hosp Care Lvl 3 Diagnoses Alcohol withdrawal syndrome F10.230 Complication of substance-induced condition: uncomplicated Bacteremia R78.81 Hypokalemia E87.6 Hypocalcemia E83.51 Hypomagnesemia E83.42 Chronic alcohol use Z72.89 Abnormal gait R26.9 Hypertension I10 Peripheral neuropathy G62.9 Type 2 diabetes mellitus E11.9 Tinea pedis B35.3 Tobacco use Z72.0 Left leg swelling M79.89 DVT prophylaxis Z29.9 Decubitus ulcer L89.90 (1) Alcohol withdrawal syndrome Complication of substance-induced condition: uncomplicated Qualified Code(s): F10.230 - Alcohol dependence with withdrawal, uncomplicated
[2020-04-17] MEDS ORDERED: Nursing to Pharmacy Communication SCH (16:00)
[2020-04-17] MEDS ORDERED: GLUCAGON FOR INJ 1 MG VIAL SQ PRN (16:28)
[2020-04-17] MEDS ORDERED: DEXTROSE 50% 50 ML SYRINGE IV PRN (16:28)
[2020-04-17] MEDS ORDERED: CARBOHYDRATES FOR HYPOGLYCEMIA PO PRN (16:28)
[2020-04-17] MEDS ORDERED: GLUCOSE 40% GEL 15 GM TUBE PO PRN (16:28)
[2020-04-17] MEDS ORDERED: GLUCOSE 10 TABS/TUBE PO PRN (16:28)
[2020-04-17] MEDS ORDERED: INSULIN GLARGINE SOLOSTAR 100 UNITS/ML 3 ML PEN SC ONE ×2 (16:29→21:00)
[2020-04-17] MEDS ORDERED: PHARMACY GLYCEMIC MGMT CONSULT PRN (16:34)
[2020-04-17] MEDS: INSULIN ASPART 100 UNITS/ML 3 ML PEN SC SCH ×2 (17:13→20:02)
[2020-04-17] MEDS: NICOTINE 21 MG/24 HR TDSY TD SCH (18:34)
[2020-04-17] MEDS: LORazepam 1 MG/2 ML VIAL IV PRN (18:35)
[2020-04-18] MEDS: CEFEPIME 2,000 MG in SYRINGE 0 ML IV SCH ×2 (01:43→09:26)
[2020-04-18] MEDS: LORazepam 1 MG/2 ML VIAL IV PRN ×2 (03:49→11:14)
[2020-04-18] MEDS: VANCOMYCIN HCL 1,250 MG in SODIUM CHLORIDE 0.9% 250 ML IV SCH (04:41)
[2020-04-18] MEDS: GABAPENTIN 400 MG CAP PO SCH (04:57)
[2020-04-18] MEDS: POTASSIUM CHLORIDE 40 MEQ in SODIUM CHLORIDE 0.45 % 1,000 ML IV SCH ×2 (07:49→12:41)
[2020-04-18] MEDS: INSULIN ASPART 100 UNITS/ML 3 ML PEN SC SCH ×2 (07:49→12:00)
[2020-04-18 08:05] LABS: Creatinine Clr Calc Pharmacy 104.6 ml/min; Est GFR (African American) 122.8; Est GFR (Non-African American) 105.9; Magnesium 1.1 mg/dl (1.8-2.4)
[2020-04-18 08:10] LABS: Phosphorus 2.3 mg/dl (2.5-4.9)
[2020-04-18] MEDS: CLOTRIMAZOLE 1% CR 15 GM TUBE EXT SCH (08:35)
[2020-04-18] MEDS: ENOXAPARIN INJ 40 MG/0.4 ML SYR SQ SCH (08:36)
[2020-04-18] MEDS: NICOTINE 21 MG/24 HR TDSY TD SCH (08:37)
[2020-04-18] MEDS: THIAMINE HCL 200 MG in SODIUM CHLORIDE 0.9% 50 ML IV SCH (08:39)
[2020-04-18] MEDS ORDERED: chlordiazePOXIDE HCl 25 MG CAP PO SCH (09:00)
[2020-04-18] MEDS ORDERED: GABAPENTIN 400 MG CAP PO SCH (09:00)
[2020-04-18] MEDS ORDERED: VANCOMYCIN TROUGH ONE ×2 (09:30→15:30)
--- NOTE | 2020-04-18 13:56 | Pharmacy Report ---
Pharmacy Glycemic Short Note 2 - Date of Service April 18, 2020 - Glycemic Short BSG Results (Last 24 hours): 04/17/20 04/17/20 16:11 19:59 POC Glucose 317 H* 258 H OUTPATIENT ANTIDIABETIC REGIMEN: * n/A * A1C 7.8% ASSESSMENT: * Consulted 04/17/20 PM for BSGs in 300s/250s- patient initially refused lantus but did receive 10 units x 1 last PM and 4 units of novolog * Patient has refused BSG checks and insulin this AM. Patient will be signing out AMA. Will continue to follow for now but currently unable to make any changes/expect patient to leave AMA. PLAN FOR INPATIENT GLYCEMIC CONTROL: * Hold outpatient oral diabetes medications * Basal insulin * Lantus 10 units SQ x1 04/18 PM * Bolus insulin * NovoLog per scale ACHS or Q6hrs while NPO * Goal Range: Low 110mg/dL - High 140 mg/dL * Correction Factor: 30 mg/dL/unit * Nutritional / Prandial insulin per carb ratio of 1 unit per 10 grams CHO consumed PLAN FOR DISCHARGE: * A1c 7.8% above goal range of <7%. Patient should f/u with outpatient provider regarding initiating diabetes treatment, encourage/support patient self- managment. Healthy Lifestyle (diet, exercise, and smoking cessation) Disease self-management (SMBG) Prevention of complications (BP, Lipid goals, Immunizations) Consider outpatient Diabetes Self-Management Education & Support
--- NOTE | 2020-04-18 14:02 | Electrocardiogram Report ---
Test Reason : Blood Pressure : / mmHG Vent. Rate : 074 BPM Atrial Rate : 074 BPM P-R Int : 130 ms QRS Dur : 070 ms QT Int : 408 ms P-R-T Axes : 000 046 049 degrees QTc Int : 452 ms Normal sinus rhythm Normal ECG When compared with ECG of 16-APR-2020 06:50, No significant change was found Confirmed by Robin Husain ([id number]) on 04/18/2020 2:01:59 PM Referred By: REFERRED SELF Confirmed By:Robin Husain
--- NOTE | 2020-04-18 15:24 | Discharge Summary ---
Date of Service April 18, 2020 Admission HPI Per Admitting Provider Sumaya Marquez is a 59-year-old female who presents to the ER due to concerns for alcohol withdrawal. She reports drinking a pint of vodka per day. She has done this for many years. She reports her last drink was 2 days ago. She feels she wants to give up permanently. She offers no reason what prompted her to suddenly want to give up alcohol. She has never tried to give up alcohol before. She has no history of alcohol withdrawal seizures. Her alcohol consumption has increased in the last 2 years. She reports a willingness to go to alcohol rehabilitation. She declines me contacting any family or friends. She has been struggling now to get around for the last week with increased ambulatory dysfunction which she feels is unrelated to alcohol intoxication. She is aware she has diabetes but reports previously not wishing treatment for this as her mother took insulin and suffered with episodes of hypoglycemia and " ended up dying anyway". She reports having a peripheral neuropathy up to her knees and does not think this can get any worse therefore also wonders whether treatment for diabetes would be worthwhile. She notes her peripheral neuropathic pain is a large reason why she drinks alcohol. She denies ever having tried gabapentin. In the ER she was noted to have significant hypocalcemia, hypomagnesemia, hypokalemia, hyponatremia, hyperglycemia -treated with 2 g IV calcium gluconate, 4 g IV magnesium sulfate, 20 meq IV potassium chloride, NSS 1 L bolus. In addition she was given thiamine 200 mg IV. Valium 5mg IV x2 given for alcohol withdrawal. She was referred to medicine for ongoing management and admission. Principal Diagnosis Left against medical advice cellulitis bacteremia sacral decubitus ulcer Discharge Exam The patient appeared debilitated and ill she was informed discharge was not advised but left AMA Vital signs as documented. Head exam is normocephalic atraumatic no scleral icterus Neck is without JVD, thyromegaly, or carotid bruits. Lungs are clear to auscultation, no focal loss of breath sounds Cardiac exam, Rhythm is regular.. No murmurs, rubs or gallops. Abdominal exam reveals normal bowel sounds, soft mildly tender, no masses Extremities are mildly edematous and both feet have significant onychomycosis Neurologic exam is alert and oriented, she is tremulous and weak Skin is with multiple areas of bruising Psychologically is with concerns for anxiety and alcohol addiction Discharge Data Allergies Allergy/AdvReac Type Severity Reaction Status Date / Time No Known Allergies Allergy Verified 04/15/20 13:40 Consultations 04/15/20 13:12 ED Decision to Admit Stat Ordered Studies 04/15/20 15:41 US venous doppler LE LT Urgent Hospital Course (1) Left against medical advice: (2) Alcohol withdrawal syndrome: Pt states she is not interested in quitting and does not want medicines for home (3) Bacteremia: Pt with both Gram positive and negative bacteria on blood cultures, suspect skin as source, transthoracic echo shows some valvular changes but similar to old echo repeat blood cultures pending will give Rx for Doxycycline and hope pt will have outpt follow up (4) Hypokalemia: Likely from poor nutritional status (5) Hypocalcemia: secondary to poor nutritional status, was given calcium, remains low (6) Hypomagnesemia: persists, additional supplement iv on 04/17 (7) Chronic alcohol use: encouraged complete cessation, encouraged AA meetings and abstinence (8) Abnormal gait: Likely affected by peripheral neuropathy. Difficult to rule out Wernicke's encephalopathy (9) Hypertension: Prior history of this. On no outpatient medication. (10) Peripheral neuropathy: B12 level replete Suspect secondary to diabetes, Pt refuses treatement for diabetes (11) Type 2 diabetes mellitus: A1c 7.8 Pt refuses treatment for diabetes (12) Tinea pedis: encouraged outpt antifungal cream and suggest podiatry referral (13) Tobacco use: councelled about cessation (14) Left leg swelling: Ultrasound venous Doppler negative for DVT. (15) Decubitus ulcer: present on admission to perineal area and right greater trochanteric area, wound care is visiting, could be source of bacteremia, I offered wound care follow up pt says she will take care of it herself Total Time Total Time Spent Total Time Spent (In Minutes): It required greater than 30 minutes to prepare this patient for discharge Discharge Plan Discharge Items Patient Disposition: Against Medical Advice Reason For Visit: HYPOMAGNESEMIA, HYPOCALCEMIA, HYPOKALEMIA Discharge Diagnosis: cellulitis, bacteremia sacral decubitus ulcer poa Activity: Resume your previous activity Non-emergency contact: Primary Care Provider Call non-emergency contact if: your wound has increased drainage Follow-up/Referrals: Allie Horn PA-C [Primary Care Provider] - Diet: Regular Addtl Attending Provider Instructions: please abstain from alcohol, strongly consider attending AA meeting follow up with your family doctor this week you have diabetes without treating this you may endanger you life and even please attend to your wounds washing them daily and using antibiotic ointment, Please see a foot doctor for your toenail infection please fill your antibiotic prescription Pending Studies at Discharge: Yes Stand-Alone Forms: My [facility] [employer], Smoking Cessation Medications and DC Order Prescriptions: New doxycycline hyclate 100 mg tablet 100 mg PO BID 10 Days Qty: 20 RF: 0 Discharge Orders: Left Against Medical Advice (Routine); Ordered 04/18/20 Ordered By: Devin Boogie Admission Data Admit Date/Time: 04/15/20 15:20 Attending Provider: Devin Boogie Admit Provider: David Real Primary Care Provider: Allie Horn Other Providers: David Real ; [facility] Other Interventions: Discharge Summary Assessment (RN) Last Done: 04/18/20 14:41 Coding Level of Care Code D/C Day Management >30 mins Diagnoses Left against medical advice Z53.29 Alcohol withdrawal syndrome F10.230 Complication of substance-induced condition: uncomplicated Bacteremia R78.81 Hypokalemia E87.6 Hypocalcemia E83.51 Hypomagnesemia E83.42 Chronic alcohol use Z72.89 Abnormal gait R26.9 Hypertension I10 Peripheral neuropathy G62.9 Type 2 diabetes mellitus E11.9 Tinea pedis B35.3 Tobacco use Z72.0 Left leg swelling M79.89 Decubitus ulcer L89.90
[2020-04-19] MEDS ORDERED: GABAPENTIN 400 MG CAP PO SCH (06:00)
== END 2020-04-18 15:08 | disposition left against medical advice (07) | DRG 894 ==
LOC: ED 11:00 → SUATTDRO 15:20 → 2S 15:20

== ENCOUNTER 2020-04-27 17:05 | Inpatient (IN) ==
[2020-04-27] MEDS ORDERED: DIPHTHERIA/TETANUS/PERTUSSIS 0.5 ML SYR/VIAL IM ONE (17:46)
--- NOTE | 2020-04-27 17:46 | Emergency Department Note ---
History of Present Illness General Chief complaint: Fall Stated complaint: FALL, Time Seen by Provider: 04/27/20 17:26 History of Present Illness Provider complaint: Fall Onset (ago): hour(s) 1 Location: lower extremity and left Radiation: non-radiation Severity: mild Maximum Pain Intensity: 0 Current Pain Intensity: 1 Quality: + aching 59-year-old alcoholic female presents emergency department status post fall. Patient was drinking vodka because her boyfriend kicked her out of the house. P atient drinks vodka every day. Patient denies hitting her head. Is reporting pain in her left knee. Home Medications Home Medications Medication Instructions Recorded Confirmed Type No Known Home Medications 04/27/20 04/27/20 History Allergies Allergy/AdvReac Type Severity Reaction Status Date / Time No Known Allergies Allergy Verified 04/27/20 21:38 Past Med/Surg History Medical History (Updated 04/27/20 @ 21:45 by Wayne Bond) Alcohol abuse Hypertension Hypokalemia Hypomagnesemia Peripheral neuropathy Tinea pedis Type 2 diabetes mellitus Surgical History No pertinent past surgical history Social History Smoking Status: Current every day smoker Cigarettes Per Day: 20; Hx Alcohol Use: Yes Alcohol type: hard liquor Hx Substance Use: No Preferred Language: Slovenian Communication Ability: Effective Beliefs That Will Affect Care: None Current Living Situation: Significant Other Feels Safe at Home: Yes Assistive Devices: None Review of Systems A total of 10 systems reviewed and were otherwise negative Physical Exam Vital Signs Vital Signs - 24 hr 04/27/20 17:17 04/27/20 17:20 04/27/20 17:29 Temperature 36.7 C Temperature Source Oral Pulse Rate 96 H 90 88 Pulse Rate [Apical] Pulse Rate from SpO2 Sensor 88 Respiratory Rate 21 23 18 Respiratory Effort / Characteristics Non-Labored Respiratory Depth Normal Respiratory Pattern Regular Blood Pressure 148/71 H 151/66 H Blood Pressure [Right Arm] Blood Pressure Mean 86 94 Blood Pressure Mean [Right Arm] Blood Pressure Position [Right Arm] Pulse Oximetry 99 99 Oxygen Delivery Method Room Air Sepsis Recent Fever Within 48 Hours No Sepsis New/Unexplained Change in Mental Status No Sepsis Action Taken by Nursing No Action Required 04/27/20 17:30 04/27/20 18:09 04/27/20 18:10 Temperature Temperature Source Pulse Rate 87 112 H Pulse Rate [Apical] 93 H Pulse Rate from SpO2 Sensor Respiratory Rate 19 27 H 19 Respiratory Effort / Characteristics Non-Labored Spontaneous Respiratory Depth Normal Respiratory Pattern Blood Pressure Blood Pressure [Right Arm] 151/63 H Blood Pressure Mean Blood Pressure Mean [Right Arm] 92 Blood Pressure Position [Right Arm] Sitting Pulse Oximetry 96 Oxygen Delivery Method Room Air Sepsis Recent Fever Within 48 Hours Sepsis New/Unexplained Change in Mental Status Sepsis Action Taken by Nursing 04/27/20 18:15 04/27/20 19:11 04/27/20 19:12 Temperature Temperature Source Pulse Rate 100 H 105 H Pulse Rate [Apical] Pulse Rate from SpO2 Sensor 98 H 98 H 108 H Respiratory Rate 21 20 22 Respiratory Effort / Characteristics Respiratory Depth Respiratory Pattern Blood Pressure 151/63 H 185/152 H Blood Pressure [Right Arm] Blood Pressure Mean 127 156 Blood Pressure Mean [Right Arm] Blood Pressure Position [Right Arm] Pulse Oximetry 100 97 Oxygen Delivery Method Sepsis Recent Fever Within 48 Hours Sepsis New/Unexplained Change in Mental Status Sepsis Action Taken by Nursing Physical Exam GENERAL: She is oriented to person, place, and time. She appears well-developed and well-nourished. She does not appear distressed. HENT: Exam performed. -Head: Normocephalic and atraumatic. -Right Ear: External ear normal. No mastoid tenderness. -Left Ear: External ear normal. No mastoid tenderness. -Mouth/Throat: The oropharynx is clear and moist. No trismus in the jaw. No dental abscesses or uvula swelling. No oropharyngeal exudate or tonsillar abscesses. EYES: Conjunctivae and EOM are normal. Pupils are equal, round, and reactive to light. Right eye exhibits no discharge. Left eye exhibits no discharge. No scleral icterus. NECK: Normal range of motion. Neck supple. No JVD present. No spinous process te nderness present. No carotid bruit present. No rigidity. No tracheal deviation and normal range of motion present. No Brudzinski's sign and no Kernig's sign noted. CV: Normal rate, regular rhythm, normal heart sounds and intact distal pulses. There is no peripheral edema. Palpable radial pulses bue. PULM/CHEST: Effort normal and breath sounds normal. No respiratory distress. No stridor. She has no wheezes. She has no rales. -Chest Wall: She exhibits no tenderness. ABD: The abdomen is soft. Bowel sounds are normal. She has no distension. No mass is present. There is no tenderness. There is no rebound, no guarding, no Singh's sign and no tenderness at McBurney's point. Rovsig negative MUSC/SKEL: Normal range of motion. There is no peripheral edema, tenderness or deformity. LYMPH: No cervical adenopathy. NEURO: She is alert and oriented to person, place, and time. She has normal strength. No cranial nerve deficit or sensory deficit. Coordination and gait normal. GCS eye subscore is 4. GCS verbal subscore is 5. GCS motor subscore is 6. Cerebellar tests wnl. SKIN: Abrasion over the left knee PSYCH: She has a normal mood and affect. Behavior is normal. Judgment and thought content normal. Course Course 1726: The patient was evaluated in room A12. A complete history and physical exam was performed. EMR reviewed. She was seen in the emergency department 12 days ago. At that time the patient was admitted to the hospital for alcohol withdrawal and hypomagnesemia and hypokalemia. The patient's magnesium level at that time was 0.6 and a potassium was 2.9. 2147: Signs stable. Labs within normal limits with exception of magnesium 1.6 and serum alcohol level of 310. Patient is tolerating p.o. Alert and oriented x3. Multiple attempts have been made to call Associates of the patient including family members however no family member or boyfriend or her known associate states they will come to pick her up as they are tired of her drinking problem. Patient will be admitted for hypomagnesemia. [facility] hospitalist Dr. Worthy notified. Administered Medications Discontinued Medications Diphtheria/Pertussis/Tetanus Vacc (Diphtheria/Tetanus/Pertussis 0.5 Ml Syr/Vial) 0.5 ml IM .ONCE ONE Stop: 04/27/20 17:47 Last Admin: 04/27/20 18:20 Dose: 0.5 ml Documented by: [id number] Medical Decision Making Laboratory Data Result diagrams: 04/27/20 18:04 04/27/20 18:04 Lab Results 04/27/20 04/27/20 04/27/20 Range/Units 18:04 18:04 18:04 WBC 10.49 (4.8-10.8) K/uL RBC 3.44 L (4.2-5.4) M/uL Hgb 11.9 L (12.0-16.0) g/dL Hct 34.1 L (37-47) % MCV 99.1 (80-100) fL MCH 34.6 H (25-34) pg MCHC 34.9 (32-36) g/dL RDW Std Deviation 48.1 H (36.4-46.3) fL RDW Coeff of Francis 13.4 (11.5-14.5) % Plt Count 552 H (130-400) K/uL MPV 10.5 H (7.4-10.4) fL Immature Gran % (Auto) 0.6 % Neut % (Auto) 74.6 % Lymph % (Auto) 19.3 % Graham % (Auto) 4.9 % Eos % (Auto) 0.1 % Baso % (Auto) 0.5 % Neut # (Auto) 7.84 H (1.4-6.5) K/uL Lymph # (Auto) 2.02 (1.2-3.4) K/uL Graham # (Auto) 0.51 (0.11-0.59) K/uL Eos # (Auto) 0.01 (0-0.5) K/uL Baso # (Auto) 0.05 (0-0.2) K/uL Immature Gran # (Auto) 0.06 H (0.00-0.02) K/uL PT 12.8 H (9.0-12.0) Seconds INR 1.2 H (0.9-1.1) APTT 28.7 (21.0-31.0) Seconds PTT Ratio 1.0 Sodium 129 L (136-145) mmol/L Potassium 3.9 (3.5-5.1) mmol/L Chloride 94 L (98-107) mmol/L Carbon Dioxide 23 (21-32) mmol/L Anion Gap 13.0 H (3-11) BUN 13 (7-18) mg/dl Creatinine 0.74 (0.6-1.2) mg/dl Est Cr Clr Drug Dosing 70.7 ml/min Est GFR ( Amer) 102.8 Est GFR (Non-Af Amer) 88.7 BUN/Creatinine Ratio 17.5 (10-20) Glucose 291 H (70-99) mg/dl Calcium 9.2 (8.5-10.1) mg/dl Magnesium 1.6 L (1.8-2.4) mg/dl Ethyl Alcohol mg/dL (0-3) mg/dl 04/27/20 Range/Units 18:04 WBC (4.8-10.8) K/uL RBC (4.2-5.4) M/uL Hgb (12.0-16.0) g/dL Hct (37-47) % MCV (80-100) fL MCH (25-34) pg MCHC (32-36) g/dL RDW Std Deviation (36.4-46.3) fL RDW Coeff of Francis (11.5-14.5) % Plt Count (130-400) K/uL MPV (7.4-10.4) fL Immature Gran % (Auto) % Neut % (Auto) % Lymph % (Auto) % Graham % (Auto) % Eos % (Auto) % Baso % (Auto) % Neut # (Auto) (1.4-6.5) K/uL Lymph # (Auto) (1.2-3.4) K/uL Graham # (Auto) (0.11-0.59) K/uL Eos # (Auto) (0-0.5) K/uL Baso # (Auto) (0-0.2) K/uL Immature Gran # (Auto) (0.00-0.02) K/uL PT (9.0-12.0) Seconds INR (0.9-1.1) APTT (21.0-31.0) Seconds PTT Ratio Sodium (136-145) mmol/L Potassium (3.5-5.1) mmol/L Chloride (98-107) mmol/L Carbon Dioxide (21-32) mmol/L Anion Gap (3-11) BUN (7-18) mg/dl Creatinine (0.6-1.2) mg/dl Est Cr Clr Drug Dosing ml/min Est GFR ( Amer) Est GFR (Non-Af Amer) BUN/Creatinine Ratio (10-20) Glucose (70-99) mg/dl Calcium (8.5-10.1) mg/dl Magnesium (1.8-2.4) mg/dl Ethyl Alcohol mg/dL 310.3 H (0-3) mg/dl Imaging Data Radiologist's Impression: XR pelvis 1-2V routine CLINICAL HISTORY: Pelvic pain status post trauma COMPARISON: None. DISCUSSION: No fractures or dislocations are visualized. There is no SI joint diastases. There is no symphysis diastases. IMPRESSION: No fractures identified. ACT 112: Negative or not required by law. Electronically signed by: Roly Patel M.D. 04/27/2020 7:12 PM Dictated: 04/27/201911 Transcribed: 04/27/201911 XR knee LT 1 or 2V routine CLINICAL HISTORY: Left knee pain status post trauma COMPARISON: None. DISCUSSION: No acute fractures or dislocations are visualized. THERE IS NO EVIDENCE FOR SOFT TISSUE SWELLING. IMPRESSION: No fractures or dislocations identified. ACT 112: Negative or not required by law. Electronically signed by: Roly Patel M.D. 04/27/2020 7:09 PM Dictated: 04/27/201907 Transcribed: 04/27/201907 XR chest 1V portable CLINICAL HISTORY: Trauma COMPARISON STUDY: January 2009 FINDINGS: The heart is normal in size. There is mild vascular prominence. There is a nonspecific 16mm left suprahilar opacity. This could represent a summation. A follow-up PA and lateral study is recommended with the patient's clinically able. There are no pleural effusions. No pneumothorax is visualized on the supine study[ IMPRESSION: 1. Nonspecific interstitial thickening, a finding of uncertain chronicity 2. 15 mm left suprahilar opacity. A follow-up PA and lateral study is recommended with the patient is clinically able. ACT 112: Negative or not required by law. Electronically signed by: Roly Patel M.D. 04/27/2020 7:12 PM Dictated: 04/27/201908 Transcribed: 04/27/201908 CT OF THE CERVICAL SPINE CLINICAL HISTORY: Neck pain status post trauma COMPARISON STUDY: No previous studies for comparison. CT DOSE: 454.41 mGycm TECHNIQUE: CT scan of the cervical spine was performed from the skull base to the thoracic inlet. Images are reviewed in the axial, sagittal, and coronal planes. IV contrast was not administered for this examination. A dose lowering technique was utilized adhering to the principles of ALARA. FINDINGS: There is mild septal thickening. There are biapical pulmonary nodules. A no nemergent CT scan is recommended in follow-up. The prevertebral soft tissues are normal. No fractures or subluxations are visualized. There are multilevel degenerative changes most pronounced the C5-C6 level with a posterior disc osteophyte complex IMPRESSION: 1. No acute fractures or traumatic subluxations identified 2. Biapical pulmonary nodules. A CT scan of the chest is recommended in follow- up. ACT 112: Negative or not required by law. Electronically signed by: Roly Patel M.D. 04/27/2020 7:15 PM Dictated: 04/27/201911 Transcribed: 04/27/201911 CT head/brain wo con CLINICAL HISTORY: Head pain status post trauma COMPARISON STUDY: No previous studies for comparison. TECHNIQUE: Axial CT of the brain is performed from the vertex to the skull base. IV contrast was not administered for this examination. A dose lowering technique was utilized adhering to the principles of ALARA. CT DOSE: 729.78 mGycm FINDINGS: No intra or extra-axial mass lesions are visualized. There is no CT evidence of acute cortical infarction. There is no evidence of midline shift. There is no acute hemorrhage. No calvarial fractures are visualized. There are minimal white matter hypodensities likely on a small vessel basis. There is no evidence of pathologic ventricular dilatation. There is no evidence of acute sinusitis IMPRESSION: No acute intracranial findings ACT 112: Negative or not required by law. Electronically signed by: Roly Patel M.D. 04/27/2020 7:08 PM Dictated: 04/27/201907 Transcribed: 04/27/201907 [facility] Narrative 1726: The patient was evaluated in room A12. A complete history and physical exam was performed. EMR reviewed. She was seen in the emergency department 12 days ago. At that time the patient was admitted to the hospital for alcohol withdrawal and hypomagnesemia and hypokalemia. The patient's magnesium level at that time was 0.6 and a potassium was 2.9. 2147: Signs stable. Labs within normal limits with exception of magnesium 1.6 and serum alcohol level of 310. Patient is tolerating p.o. Alert and oriented x3. Multiple attempts have been made to call Associates of the patient including family members however no family member or boyfriend or her known as sociate states they will come to pick her up as they are tired of her drinking problem. Patient will be admitted for hypomagnesemia. [facility] hospitalist Dr. Worthy notified. Impression & Plan Chronic alcohol use, Hypomagnesemia Discharge Plan Visit Data Chief Complaint: Fall Stated Complaint: FALL, ED Provider: Wayne Bond Discharge Problem: Chronic alcohol use, Hypomagnesemia Patient Disposition: Being Evaluated by Hospitalist Discharge Instructions Robina/Other Patient Handouts: Alcohol and Older Adults, Alcoholism Resources, Alcoholism: Getting Help, Alcohol Addiction Forms Stand Alone Forms: My [facility], Virtual Emergency Department, Important Visit Information Prescriptions Prescriptions: No Action No Known Home Medications RF: 0 Referrals Referrals: Allie Horn PA-C [Primary Care Provider] - (Follow-up in 1-7 days.)
[2020-04-27 18:24] LABS: Basophils # (auto) 0.05 K/uL (0-0.2); Basophils % (auto) 0.5 %; Eosinophils # (auto) 0.01 K/uL (0-0.5); Eosinophils % (auto) 0.1 %; Hematocrit (blood only) 34.1 % (37-47); Hemoglobin 11.9 g/dL (12.0-16.0); Immature Granulocytes # (auto) 0.06 K/uL (0.00-0.02); Immature Granulocytes % (auto) 0.6 %; Lymphocytes # (auto) 2.02 K/uL (1.2-3.4); Lymphocytes % (auto) 19.3 %; Mean Corpuscular Hemoglobin 34.6 pg (25-34); Mean Corpuscular Hgb Conc 34.9 g/dL (32-36); Mean Corpuscular Volume 99.1 fL (80-100); Mean Platelet Volume 10.5 fL (7.4-10.4); Monocytes # (auto) 0.51 K/uL (0.11-0.59); Monocytes % (auto) 4.9 %; Neutrophils # (auto) 7.84 K/uL (1.4-6.5); Neutrophils % (auto) 74.6 %; Platelet Count 552 K/uL (130-400); RDW Coefficient of Variation 13.4 % (11.5-14.5); RDW Standard Deviation 48.1 fL (36.4-46.3); Red Blood Count 3.44 M/uL (4.2-5.4); White Blood Count 10.49 K/uL (4.8-10.8)
[2020-04-27 18:34] LABS: INR 1.2 (0.9-1.1); Partial Thromboplastin Time 28.7 Seconds (21.0-31.0); Prothrombin Time 12.8 Seconds (9.0-12.0)
[2020-04-27 18:41] LABS: BUN Creatinine Ratio 17.5 (10-20); Calcium 9.2 mg/dl (8.5-10.1); Creatinine Clr Calc Pharmacy 70.7 ml/min; Est GFR (African American) 102.8; Est GFR (Non-African American) 88.7; Magnesium 1.6 mg/dl (1.8-2.4); Potassium 3.9 mmol/L (3.5-5.1)
--- NOTE | 2020-04-27 19:09 | CT Scan Report ---
CT head/brain wo con CLINICAL HISTORY: Head pain status post trauma COMPARISON STUDY: No previous studies for comparison. TECHNIQUE: Axial CT of the brain is performed from the vertex to the skull base. IV contrast was not administered for this examination. A dose lowering technique was utilized adhering to the principles of ALARA. CT DOSE: 729.78 mGycm FINDINGS: No intra or extra-axial mass lesions are visualized. There is no CT evidence of acute cortical infarc tion. There is no evidence of midline shift. There is no acute hemorrhage. No calvarial fractures ar e visualized. There are minimal white matter hypodensities likely on a small vessel basis. There is no evidence of pathologic ventricular dilatation. There is no evidence of acute sinusitis IMPRESSION: No acute intracranial findings ACT 112: Negative or not required by law. Electronically signed by: Roly Patel M.D. 04/27/2020 7:08 PM
--- NOTE | 2020-04-27 19:10 | XRay Report ---
XR knee LT 1 or 2V routine CLINICAL HISTORY: Left knee pain status post trauma COMPARISON: None. DISCUSSION: No acute fractures or dislocations are visualized. THERE IS NO EVIDENCE FOR SOFT TISSUE S WELLING. IMPRESSION: No fractures or dislocations identified. ACT 112: Negative or not required by law. Electronically signed by: Roly Patel M.D. 04/27/2020 7:09 PM
--- NOTE | 2020-04-27 19:13 | XRay Report ---
XR chest 1V portable CLINICAL HISTORY: Trauma COMPARISON STUDY: January 2009 FINDINGS: The heart is normal in size. There is mild vascular prominence. There is a nonspecific 16mm left suprahilar opacity. This could represent a summation. A follow-up PA and lateral study is recom mended with the patient's clinically able. There are no pleural effusions. No pneumothorax is visuali zed on the supine study[ IMPRESSION: 1. Nonspecific interstitial thickening, a finding of uncertain chronicity 2. 15 mm left suprahilar opacity. A follow-up PA and lateral study is recommended with the patient is clinically able. ACT 112: Negative or not required by law. Electronically signed by: Roly Patel M.D. 04/27/2020 7:12 PM
--- NOTE | 2020-04-27 19:14 | XRay Report ---
XR pelvis 1-2V routine CLINICAL HISTORY: Pelvic pain status post trauma COMPARISON: None. DISCUSSION: No fractures or dislocations are visualized. There is no SI joint diastases. There is no symphysis diastases. IMPRESSION: No fractures identified. ACT 112: Negative or not required by law. Electronically signed by: Roly Patel M.D. 04/27/2020 7:12 PM
--- NOTE | 2020-04-27 19:16 | CT Scan Report ---
CT OF THE CERVICAL SPINE CLINICAL HISTORY: Neck pain status post trauma COMPARISON STUDY: No previous studies for comparison. CT DOSE: 454.41 mGycm TECHNIQUE: CT scan of the cervical spine was performed from the skull base to the thoracic inlet. Lyndsey ges are reviewed in the axial, sagittal, and coronal planes. IV contrast was not administered for thi s examination. A dose lowering technique was utilized adhering to the principles of ALARA. FINDINGS: There is mild septal thickening. There are biapical pulmonary nodules. A nonemergent CT scan is recom mended in follow-up. The prevertebral soft tissues are normal. No fractures or subluxations are visualized. There are multilevel degenerative changes most pronounced the C5-C6 level with a posterior disc osteo phyte complex IMPRESSION: 1. No acute fractures or traumatic subluxations identified 2. Biapical pulmonary nodules. A CT scan of the chest is recommended in follow-up. ACT 112: Negative or not required by law. Electronically signed by: Roly Patel M.D. 04/27/2020 7:15 PM
--- NOTE | 2020-04-27 22:16 | History & Physical Report ---
Date of Service April 27, 2020 Assessment & Plan (1) Alcohol withdrawal syndrome: Alcohol withdrawal syndrome/intoxication/chronic alcohol use- Patient does not have anyone to take care of her at home, or pick her up to take her home. She is therefore at risk for further alcohol withdrawal. Admit for observation to medical with telemetry. AWSS protocol with IV Ativan Place on thiamine 100 mg p.o. daily, folic acid 1 mg p.o. daily and multivitamin daily NSS + KCl 20 mEq at 100 mils per hour Mild hyponatremia at 129, will be repeated in a.m. after IV fluid hydration Present on Admission?: Yes (2) Chronic alcohol use: See above Present on Admission?: Yes (3) Hypomagnesemia: Being replaced with IV replacement in the ED Repeat labs in a.m. Present on Admission?: Yes (4) Type 2 diabetes mellitus: No medications on file. Glucose 291 upon admission Placed on Accu-Cheks before meals and at bedtime with NovoLog coverage per scale Check hemoglobin A1c Present on Admission?: Yes (5) Tobacco use: NicoDerm patch if needed Present on Admission?: Yes (6) Hypertension: Reported history of hypertension however, no medication list noted, and blood pressure is within normal Present on Admission?: Yes (7) Mass of left lung: Chest x-ray with 15 mm left suprahilar opacity. CT of cervical spine shows biapical pulmonary nodules. Order CT chest without contrast for follow-up tonight, and may need with contrast tomorrow. Present on Admission?: Yes (8) Pulmonary nodules/lesions, multiple: See above Present on Admission?: Yes History of Present Illness Chief Complaint: The patient presents to the emergency department status post fall. Primary Care Provider: Allie Horn PA-C Patient is a 59-year-old female with a past medical history including decubitus ulcer, bacteremia, abnormal gait, chronic alcohol use, tobacco use, peripheral neuropathy, diabetes mellitus type 2, hypertension, history of alcohol withdrawal syndrome, hyperglycemia and hypocalcemia. The patient reports that she was drinking vodka because her boyfriend kicked her out of the house. She reports drinking vodka unknown volume on a daily basis. The emergency department was unable to contact anyone who will come and pick her up to take her back home. Patient is mildly agitated in the ED, but for me has no complaints otherwise. Allergies Allergy/AdvReac Type Severity Reaction Status Date / Time No Known Allergies Allergy Verified 04/27/20 21:38 Home Medications Home Medications Medication Instructions Recorded Confirmed Type No Known Home Medications 04/27/20 04/27/20 History Past Med/Surg History Medical History (Updated 04/28/20 @ 00:21 by Sanya Crawford MD) Alcohol abuse Hypertension Hypokalemia Hypomagnesemia Peripheral neuropathy Tinea pedis Type 2 diabetes mellitus Surgical History No pertinent past surgical history Social History Smoking Status: Current every day smoker Cigarettes Per Day: 20; Do You Dip or Chew Tobacco: No; Tobacco Cessation Education Requested by Patient: No Hx Alcohol Use: Yes Alcohol type: hard liquor Hx Substance Use: No Preferred Language: Sami Communication Ability: Effective Platform Operations Director Required: No Beliefs That Will Affect Care: None Current Living Situation: Other Current Living Situation Comment: currently living with sister Other Information That Helps Us Care for You: No Feels Safe at Home: Yes Safety Concerns: Feels Safe At This Time Assistive Devices: None Review of Systems Review of Systems: The patient denies chest pain, palpitations, shortness of breath, dyspnea on exertion, cough, lower extremity swelling, sore throat, fevers, chills, sweats, weight change, fatigue, nausea, vomiting, diarrhea , constipation, abdominal pain, pelvic pain, blood in urine or stool, dysuria, urinary frequency or urgency, loss of consciousness, rash, abnormal bleeding, Focal weakness, numbness or tingling in arms or legs, generalized arthralgias or myalgias, back or neck pain, or night sweats. The review of systems is otherwise negative other than for that already noted above, and at least 10 systems have been reviewed. Physical Exam Physical Exam: The patient is awake, alert and oriented 3, well developed and well nourished, is intoxicated, normocephalic and atraumatic, lying in bed and in no acute distress. HEENT--PERRL, EOMI, mucous membranes and oropharynx dry. Neck--supple. No JVD. No bruits. Thyroid normal, trachea midline, no adenopathy. Heart--normal S1 and S2. No murmurs, rubs or gallops. Lungs--clear bilaterally, no respiratory distress, no accessory muscle use. Abdomen--normal bowel sounds and soft. Nontender. Nondistended, no hernias or masses, no organomegaly. Extremities--no cyanosis or clubbing. No edema. Dermatologic--normal skin turgor, normal color, no abnormal lymph nodes, no rash. Neurologic--cranial nerves II through XII grossly intact. Rheumatologic--normal range of motion. Psychiatric--intoxicated. Results & Data Results & Data ([facility]) Vital Signs (Past 12 Hours) Vital Signs Temp Pulse Pulse Resp BP BP Pulse Ox 04/27/20 19:12 105 H 22 185/152 H 04/27/20 19:11 100 H 20 97 04/27/20 18:15 21 151/63 H 100 04/27/20 18:10 93 H 19 151/63 H 96 04/27/20 18:09 112 H 27 H 04/27/20 17:30 87 19 04/27/20 17:29 88 18 04/27/20 17:20 98.1 F 90 23 151/66 H 99 04/27/20 17:17 96 H 21 148/71 H 99 Laboratory Results Laboratory Results WBC 10.49 K/uL (4.8-10.8) 04/27/20 18:04 RBC 3.44 M/uL (4.2-5.4) L 04/27/20 18:04 Hgb 11.9 g/dL (12.0-16.0) L 04/27/20 18:04 Hct 34.1 % (37-47) L 04/27/20 18:04 MCV 99.1 fL (80-100) 04/27/20 18:04 MCH 34.6 pg (25-34) H 04/27/20 18:04 MCHC 34.9 g/dL (32-36) 04/27/20 18:04 RDW Std Deviation 48.1 fL (36.4-46.3) H 04/27/20 18:04 RDW Coeff of Francis 13.4 % (11.5-14.5) 04/27/20 18:04 Plt Count 552 K/uL (130-400) H 04/27/20 18:04 MPV 10.5 fL (7.4-10.4) H 04/27/20 18:04 Immature Gran % (Auto) 0.6 % 04/27/20 18:04 Neut % (Auto) 74.6 % 04/27/20 18:04 Lymph % (Auto) 19.3 % 04/27/20 18:04 Cuming % (Auto) 4.9 % 04/27/20 18:04 Eos % (Auto) 0.1 % 04/27/20 18:04 Baso % (Auto) 0.5 % 04/27/20 18:04 Neut # (Auto) 7.84 K/uL (1.4-6.5) H 04/27/20 18:04 Lymph # (Auto) 2.02 K/uL (1.2-3.4) 04/27/20 18:04 Cuming # (Auto) 0.51 K/uL (0.11-0.59) 04/27/20 18:04 Eos # (Auto) 0.01 K/uL (0-0.5) 04/27/20 18:04 Baso # (Auto) 0.05 K/uL (0-0.2) 04/27/20 18:04 Immature Gran # (Auto) 0.06 K/uL (0.00-0.02) H 04/27/20 18:04 PT 12.8 Seconds (9.0-12.0) H 04/27/20 18:04 INR 1.2 (0.9-1.1) H 04/27/20 18:04 APTT 28.7 Seconds (21.0-31.0) 04/27/20 18:04 PTT Ratio 1.0 04/27/20 18:04 Sodium 129 mmol/L (136-145) L 04/27/20 18:04 Potassium 3.9 mmol/L (3.5-5.1) 04/27/20 18:04 Chloride 94 mmol/L (98-107) L 04/27/20 18:04 Carbon Dioxide 23 mmol/L (21-32) 04/27/20 18:04 Anion Gap 13.0 (3-11) H 04/27/20 18:04 BUN 13 mg/dl (7-18) 04/27/20 18:04 Creatinine 0.74 mg/dl (0.6-1.2) 04/27/20 18:04 Est Cr Clr Drug Dosing 70.7 ml/min 04/27/20 18:04 Est GFR ( Amer) 102.8 04/27/20 18:04 Est GFR (Non-Af Amer) 88.7 04/27/20 18:04 BUN/Creatinine Ratio 17.5 (-20) 04/27/20 18:04 Glucose 291 mg/dl (70-99) H 04/27/20 18:04 POC Glucose 272 mg/dl (70-99) H 04/27/20 23:50 Calcium 9.2 mg/dl (8.5-10.1) 04/27/20 18:04 Magnesium 1.6 mg/dl (1.8-2.4) L 04/27/20 18:04 Ethyl Alcohol mg/dL 310.3 mg/dl (0-3) H 04/27/20 18:04 Diagnostic Findings [place], [place] [phone] CT Scan Report Patient: HERB ALTAMIRANO Date: 04/27/20 MR#: [id number]: [address] [facility] Acct ID:[id number]: Date: 1960[facility] Zip: [place] [address] Age: 59Location: ED Sex: FRoom/Bed: Att Phy:Diagnosis: FALL, Shama Phy: Allie Horn-CService Date: 04/27/20 Fam Phy:Interpreting Phy: Roly Patel MD Admit Phy: Ordering Phy: Wayne Bond MD cc: ~ CT head/brain wo con CLINICAL HISTORY: Head pain status post trauma COMPARISON STUDY: No previous studies for comparison. TECHNIQUE: Axial CT of the brain is performed from the vertex to the skull base. IV contrast was not administered for this examination. A dose lowering technique was utilized adhering to the principles of ALARA. CT DOSE: 729.78 mGycm FINDINGS: No intra or extra-axial mass lesions are visualized. There is no CT evidence of acute cortical infarction. There is no evidence of midline shift. There is no acute hemorrhage. No calvarial fractures are visualized. There are minimal white matter hypodensities likely on a small vessel basis. There is no evidence of pathologic ventricular dilatation. There is no evidence of acute sinusitis IMPRESSION: No acute intracranial findings ACT 112: Negative or not required by law. Electronically signed by: Roly Patel M.D. 04/27/2020 7:08 PM Dictated: 04/27/201907 Transcribed: 04/27/201907 [facility] [place] [phone] CT Scan Report Patient: HERB ALTAMIRANO Date: 04/27/20 MR#: [id number]: [address] Acct ID:[id number]: Date: 1960City Zip: [place] [address] Age: 59Location: ED Sex: FRoom/Bed: Att Phy:Diagnosis: FALL, Shama Phy: Allie Horn-CService Date: 04/27/20 Fam Phy:Interpreting Phy: Roly Patel MD Admit Phy: Ordering Phy: Wayne Bond MD cc: ~ CT OF THE CERVICAL SPINE CLINICAL HISTORY: Neck pain status post trauma COMPARISON STUDY: No previous studies for comparison. CT DOSE: 454.41 mGycm TECHNIQUE: CT scan of the cervical spine was performed from the skull base to the thoracic inlet. Images are reviewed in the axial, sagittal, and coronal planes. IV contrast was not administered for this examination. A dose lowering technique was utilized adhering to the principles of ALARA. FINDINGS: There is mild septal thickening. There are biapical pulmonary nodules. A nonemergent CT scan is recommended in follow-up. The prevertebral soft tissues are normal. No fractures or subluxations are visualized. There are multilevel degenerative changes most pronounced the C5-C6 level with a posterior disc osteophyte complex IMPRESSION: 1. No acute fractures or traumatic subluxations identified 2. Biapical pulmonary nodules. A CT scan of the chest is recommended in follow- up. ACT 112: Negative or not required by law. Electronically signed by: Roly Patel M.D. 04/27/2020 7:15 PM Dictated: 04/27/201911 Transcribed: 04/27/201911 [phone] X[facility] Report Patient: HERB ALTAMIRANO Date: 04/27/20 MR#: [id number]: [address] Acct ID:[id number]: Date: 1960[facility] Zip: [place] [address] Age: 59Location: ED Sex: FRoom/Bed: Att Phy:Diagnosis: FALL, Shama Phy: Allie Horn PA-CService Date: 04/27/20 Fam Phy:Interpreting Phy: Roly Patel MD Admit Phy: Ordering Phy: Wayne Bond MD cc: ~ XR chest 1V portable CLINICAL HISTORY: Trauma COMPARISON STUDY: January 2009 FINDINGS: The heart is normal in size. There is mild vascular prominence. There is a nonspecific 16mm left suprahilar opacity. This could represent a summation. A follow-up PA and lateral study is recommended with the patient's clinically able. There are no pleural effusions. No pneumothorax is visualized on the supine study[ IMPRESSION: 1. Nonspecific interstitial thickening, a finding of uncertain chronicity 2. 15 mm left suprahilar opacity. A follow-up PA and lateral study is recommended with the patient is clinically able. ACT 112: Negative or not required by law. Electronically signed by: Roly Patel M.D. 04/27/2020 7:12 PM Dictated: 04/27/201908 Transcribed: 04/27/201908 [place], [place] [phone] XRay Report Patient: HERB ALTAMIRANO Date: 04/27/20 MR#: [id number]: [address] Acct ID:[id number]: Date: 1960[facility] Zip: [place] [address] Age: 59Location: ED Sex: FRoom/Bed: Att Phy:Diagnosis: FALL, Shama Phy: Allie Horn [place]-CService Date: 04/27/20 Fam Phy:Interpreting Phy: Roly Patel MD Admit Phy: Ordering Phy: Wayne Bond MD cc: ~ XR knee LT 1 or 2V routine CLINICAL HISTORY: Left knee pain status post trauma COMPARISON: None. DISCUSSION: No acute fractures or dislocations are visualized. THERE IS NO EVIDENCE FOR SOFT TISSUE SWELLING. IMPRESSION: No fractures or dislocations identified. ACT 112: Negative or not required by law. Electronically signed by: Roly Patel M.D. 04/27/2020 7:09 PM Dictated: 04/27/201907 Transcribed: 04/27/201907 [place], [place] [phone] XRay Report Patient: HERB ALTAMIRANO Date: 04/27/20 MR#: [id number]: [address] Acct ID:[id number]: Date: 1960ty Zip: [place] [address] Age: 59Location: ED Sex: FRoom/Bed: Att Phy:Diagnosis: FALL, Shama Phy: Allie Horn PA-CService Date: 04/27/20 Fam Phy:Interpreting Phy: Roly Patel MD Admit Phy: Ordering Phy: Wayne Bond MD cc: ~ XR pelvis 1-2V routine CLINICAL HISTORY: Pelvic pain status post trauma COMPARISON: None. DISCUSSION: No fractures or dislocations are visualized. There is no SI joint diastases. There is no symphysis diastases. IMPRESSION: No fractures identified. ACT 112: Negative or not required by law. Electronically signed by: Roly Patel M.D. 04/27/2020 7:12 PM Dictated: 04/27/201911 Transcribed: 04/27/201911 Code Status & VTE Plan Code Status Full code VTE Prophylaxis Plan VTE Prophylaxis will be ordered: Yes PG Care Time/CCT Total # of Minutes Spent Total Time Spent with Patient: Total time spent is greater than 50% in coordination of care (as documented) at patient's floor/unit and/or counseling patient: Coding Level of Care Code 57102 OBS Care - Level 3 Diagnoses Alcohol withdrawal syndrome F10.230 Complication of substance-induced condition: uncomplicated Chronic alcohol use Z72.89 Hypomagnesemia E83.42 Type 2 diabetes mellitus E11.9 Tobacco use Z72.0 Hypertension I10 Mass of left lung R91.8 Pulmonary nodules/lesions, multiple R91.8 (1) Alcohol withdrawal syndrome Complication of substance-induced condition: uncomplicated Qualified Code(s): F10.230 - Alcohol dependence with withdrawal, uncomplicated
[2020-04-27] MEDS: MAGNESIUM SULFATE / D5W 1 GM/100 ML BAG IV SCH (22:25)
[2020-04-27] MEDS ORDERED: ALUMINUM/MAGNESIUM SUSP 30 ML UDC PO PRN (23:41)
[2020-04-27] MEDS ORDERED: LORazepam 3 MG/6 ML VIAL IV PRN (23:41)
[2020-04-27] MEDS ORDERED: LORazepam 2 MG/4 ML VIAL IV PRN (23:41)
[2020-04-27] MEDS ORDERED: ONDANSETRON INJ 2 MG/ML 2 ML VIAL IV PRN (23:41)
[2020-04-27] MEDS ORDERED: ATIVAN IV ALCOHOL WITHDRAWL IV PRN (23:41)
[2020-04-27] MEDS ORDERED: ACETAMINOPHEN 325 MG TAB PO PRN (23:41)
[2020-04-27] MEDS ORDERED: MAGNESIUM HYDROXIDE SUSP 30 ML UDC PO PRN (23:41)
[2020-04-27] MEDS ORDERED: LORazepam 1 MG/2 ML VIAL IV PRN (23:41)
[2020-04-28] MEDS ORDERED: GLUCAGON FOR INJ 1 MG VIAL SQ PRN (00:08)
[2020-04-28] MEDS ORDERED: DEXTROSE 50% 50 ML SYRINGE IV PRN (00:08)
[2020-04-28] MEDS ORDERED: GLUCOSE 40% GEL 15 GM TUBE PO PRN (00:08)
[2020-04-28] MEDS ORDERED: GLUCOSE 10 TABS/TUBE PO PRN (00:08)
[2020-04-28] MEDS ORDERED: CARBOHYDRATES FOR HYPOGLYCEMIA PO PRN (00:08)
[2020-04-28] MEDS: MAGNESIUM SULFATE / D5W 1 GM/100 ML BAG IV SCH (00:11)
[2020-04-28] MEDS: FOLIC ACID 1 MG TAB PO SCH ×2 (00:40→10:17)
[2020-04-28] MEDS: THIAMINE HCL 100 MG TAB PO SCH ×2 (00:40→10:17)
[2020-04-28] MEDS: NSS + 20MEQ KCL 20 MEQ/1,000 ML BAG IV SCH ×2 (01:09→12:11)
[2020-04-28 06:49] LABS: Estimated Average Glucose 186 mg/dl; Hemoglobin A1C 8.1 % (4.5-5.6)
--- NOTE | 2020-04-28 08:35 | CT Scan Report ---
CT chest wo con CLINICAL HISTORY: Shortness of breath. ABNORMAL CHEST X-RAY AND CT SCAN OF THE CERVICAL SPINE. COMPARISON STUDY: Chest x-ray dated 04/27/2020 CT DOSE: 220.42 mGy.cm TECHNIQUE: CT of the thorax was performed from the thoracic inlet to the lung bases. Images are revi ewed in the axial, sagittal, and coronal planes. IV contrast was not administered for this examinatio n. A dose lowering technique was utilized adhering to the principles of ALARA. FINDINGS: Thyroid: Imaged portions of the thyroid gland are normal in appearance. Thoracic aorta: The thoracic aorta is normal in course and caliber, noting standard 3 vessel arch whit heri. Heart: The heart is normal in size. There are mild coronary artery calcifications. Lungs and pleural spaces: No significant pleural effusions are visualized. There is mild basilar atel ectasis. There are multifocal bilateral groundglass opacities. The findings favor infectious/inflamma tory etiology. Covid 19 must be considered. There is subtle septal edema. Mediastinum: There is a minimally enlarged subcarinal lymph node. Mariia: There is no evidence of pathologic hilar adenopathy given the limitations of a noncontrast stud y. Axilla: There is no evidence of pathologic axillary lymphadenopathy. Upper abdomen: There is hepatic steatosis. Skeletal structures: There are no lytic or blastic osseous lesions. IMPRESSION: 1. Multifocal groundglass pulmonary opacities. Despite the mild septal edema, an infectious/inflammat ory process is favored over an atypical presentation of pulmonary edema. Testing for Covid 19 if not previously done should be obtained. 2. Hepatic steatosis ACT 112: Negative or not required by law. Electronically signed by: Roly Patel M.D. 04/28/2020 8:34 AM
[2020-04-28] MEDS: INSULIN ASPART 100 UNITS/ML 3 ML PEN SC SCH ×3 (09:38→17:05)
--- NOTE | 2020-04-28 09:51 | Discharge Summary ---
Date of Service April 28, 2020 Admission HPI Per Admitting Provider Patient is a 59-year-old female with a past medical history including decubitus ulcer, bacteremia, abnormal gait, chronic alcohol use, tobacco use, peripheral neuropathy, diabetes mellitus type 2, hypertension, history of alcohol withdrawal syndrome, hyperglycemia and hypocalcemia. The patient reports that she was drinking vodka because her boyfriend kicked her out of the house. She reports drinking vodka unknown volume on a daily basis. The emergency department was unable to contact anyone who will come and pick her up to take her back home. Patient is mildly agitated in the ED, but for me has no complaints otherwise. Discharge Data Allergies Allergy/AdvReac Type Severity Reaction Status Date / Time No Known Allergies Allergy Verified 04/27/20 21:38 Consultations 04/27/20 21:30 ED Decision to Admit Stat 04/27/20 23:41 Consult Case Management - Discharge Planning Routine Ordered Studies 04/27/20 17:33 CT head/brain wo con Stat 04/27/20 17:34 CT cervical spine wo con Stat 04/27/20 22:10 CT chest wo con Urgent Discharge Plan Discharge Items Reason For Visit: CONFUSION, S/P FALL Medications and DC Order Prescriptions: No Action No Known Home Medications RF: 0 Admission Data Admit Date/Time: 04/27/20 22:15 Attending Provider: Champ Salmeron Admit Provider: Sanya Crawford Primary Care Provider: Allie Horn Other Providers: Sanya Crawford
[2020-04-28] MEDS: MAGNESIUM OXIDE 400 MG TAB PO SCH ×2 (10:16→20:40)
[2020-04-28] MEDS: CHOLECALCIFEROL 1,000 UNITS 25 MCG TAB PO SCH (10:16)
[2020-04-28] MEDS: ERGOCALCIFEROL 50,000 UNITS CAP PO SCH (10:17)
[2020-04-28] MEDS ORDERED: LORazepam 1 MG TAB PO PRN (14:01)
--- NOTE | 2020-04-28 14:22 | Hospitalist Progress Note ---
Date of Service April 28, 2020 Assessment & Plan (1) Alcohol withdrawal syndrome: 59 yo F PMHx DM2, chronic alcohol abuse presented with fall via ambulance and was admitted for alcohol intoxication with care for possible withdrawal. Fall, deconditioning: - Though yesterday she was complaining of pain in her back and knee per EMR, patient today does not complain of pain. - Per nursing patient is requiring a lot of assistance in order to get up to use the restroom, move from bed to chair, etc. - Suspect deconditioning with associated poor nutritional intake as well as chronic alcohol use. - PT/OT evaluations ordered, patient is amenable at this time to acute outpatient physical rehabilitation if suggested for conditioning and strength training. Alcohol withdrawal with history of alcohol abuse: - History of up to a pint of alcohol daily, most family members and recent boyfriend have all declined assisting patient with her care at their homes due to chronic abuse. - Patient is not amenable to inpatient or outpatient alcohol rehab. - Have started thiamine, folic acid. - AWSS Ativan PO PRN protocol. - Asymptomatic with regard to withdrawal symptoms at this time. - INR elevated to 1.2, with chronic anemia. - While elevated, INR decreased compared to recent admissions. - Suspect secondary to chronic alcohol abuse, though patient refuses rehab at this time. DM2: - History of, has refused insulin treatment several times. - Hgb A1c this admission 8.1%. - DM2 diet. - Outpatient PCP follow up to discuss oral medication possibilities for BSG control. Hypomagnesemia, Hyponatremia: - On admission with magnesium 1.6 repleted in ED. - Will start magnesium supplementation while admitting and encourage continued use when discharged. - Likely secondary to malnutrition, poor PO intake except vodka. - Na on admission 129, this is patients baseline (range 128-132 over the last several months). - Etiologies include poor solute intake (tea and toast diet) with robust fluid intake in the form of alcohol. - NSS 1L given while admitted. - Patient refuses IV insertion at this time, encourage PO intake. - Unlikely to be prerenal given BUN, mucous membranes. No voiding difficulty making postrenal unlikely. Tobacco use history: - Current smoker, declines nicotine patch. Code Status: FULL CODE FENGI: DM2 diet, PO fluids DVT ppx: Dispo: Med/Surg, for likely placement early this upcoming week (2) Type 2 diabetes mellitus: (3) Tobacco use: (4) Chronic alcohol use: (5) Pulmonary nodules/lesions, multiple: (6) Physical deconditioning: Admission and Anticipated Discharge Date Admission Date: April 27, 2020 Supervising Physician Co-Signing Physician Notes I personally examined the patient and verified all [place] points of history and exam, discussed case, and agree with decision making with Dr Covarrubias. feeling ok no withdrawal symptoms. wanted to go home - but nowhere to go papi noted nad heent nc at mmm breathing unlabored no accessoyr muscles good effort no tremors EtOH abuse/withdrawal - wanted to go home, has nowhere to go - not safe by herself given that she's still easily in the window for withdrawal - not unreasonable to follow in house further. thiamine/folate uncontrolled DM2 - metformin, follow d deficiecny/mag deficiency - replace otherwise as above Subjective Overnight with no acute events. Nursing reports 2 person assist required for getting patient to chair, bathroom, etc. Patient herself reports feeling well today and is unclear on why she is in the hospital. Does not recall falling and reports that she has not had much alcohol because she is living with her sister. Feeling a little weak, but not fevers or chills, no chest pain or SOB, no abdominal pain. No nausea or vomiting. No tremors. No anxiety or agitation, no hallucinations. Today per case management patients family is at the end of their rope, feel unable to care for her given her weakness and refusal to seek help for alcohol abuse. Review of Systems Review of Systems: All systems reviewed & are unremarkable except as noted in HPI & below Constitutional: no fever, no chills and no malaise Respiratory: no cough and no dyspnea Cardiovascular: no chest pain, no palpitations and no edema Gastrointestinal: no abdominal pain, no constipation and no diarrhea/loose stools Genitourinary: no dysuria and no hematuria Physical Exam Constitutional: well developed; no altered mental status disheveled appeari ng Eyes: PERRL, conjunctivae normal, anicteric sclerae ENMT: external ear and nose normal, oropharynx normal Neck: normal visual inspection Respiratory: normal respiratory effort, lungs clear to auscultation Cardiovascular: RRR, no murmur, no edema Gastrointestinal (Abdomen): normal bowel sounds, soft, nontender, no hepatosplenomegaly Percussion/Palpation: no ascites Skin: no rashes, warm and dry Neurologic: AAOx3, normal speech. No notable tremor. Psychiatric: A+Ox3, euthymic affect Results & Data Results & Data ([facility]) Vital Signs (Past 12 Hours) Vital Signs Temp Pulse Resp BP BP Pulse Ox 04/28/20 11:32 36.8 C 98 H 16 180/92 H 98 04/28/20 07:30 36.9 C 93 H 16 127/69 93 04/28/20 04:48 36.7 C 78 20 138/54 L 96 Resident Activity Tracking Resident Involvement: Resident Care Provided Care Provided: Adult Hospital Medicine (1) Type 2 diabetes mellitus Diabetes mellitus complication status: without complication Diabetes mellitus halfway insulin use: without watcher automat long goods use Qualified Code(s): E11.9 - Type 2 diabetes mellitus without complications (2) Alcohol withdrawal syndrome Complication of substance-induced condition: uncomplicated Qualified Code(s): F10.230 - Alcohol dependence with withdrawal, uncomplicated
[2020-04-28] MEDS: METFORMIN HCL 500 MG TAB PO SCH (17:34)
--- NOTE | 2020-04-28 18:08 | Billing Data ---
Date of Service April 28, 2020 Coding Level of Care Code 92537 Subseq Hosp Care Lvl 3
[2020-04-29] MEDS: CHOLECALCIFEROL 1,000 UNITS 25 MCG TAB PO SCH (07:50)
[2020-04-29] MEDS: FOLIC ACID 1 MG TAB PO SCH (07:50)
[2020-04-29] MEDS: ERGOCALCIFEROL 50,000 UNITS CAP PO SCH (07:51)
[2020-04-29] MEDS: METFORMIN HCL 500 MG TAB PO SCH ×2 (07:51→17:16)
[2020-04-29] MEDS: THIAMINE HCL 100 MG TAB PO SCH (07:51)
[2020-04-29] MEDS: MAGNESIUM OXIDE 400 MG TAB PO SCH ×2 (07:51→20:42)
[2020-04-29] MEDS: HydrALAZINE 10 MG TAB PO PRN (08:03)
[2020-04-29] MEDS: GLIMEPIRIDE 2 MG TAB PO SCH (09:24)
--- NOTE | 2020-04-29 10:00 | Hospitalist Progress Note ---
Date of Service April 29, 2020 Assessment & Plan (1) Alcohol withdrawal syndrome: 59 yo F PMHx DM2, chronic alcohol abuse presented with fall via ambulance and was admitted for alcohol intoxication with care for possible withdrawal. Fall, deconditioning: - Though on admission she was complaining of pain in her back and knee per EMR, patient continues to not complain of pain. - Per nursing patient is continuing to require a lot of assistance in order to get up to use the restroom, move from bed to chair, etc. - Suspect deconditioning with associated poor nutritional intake as well as chronic alcohol use. - PT/OT evaluations ordered, patient is amenable at this time to acute outpatie nt physical rehabilitation such as [facility] if suggested by PT/OT for conditioning and strength training. Alcohol withdrawal with history of alcohol abuse: - History of up to a pint of alcohol daily, most family members and recent boyfriend have all declined assisting patient with her care at their homes due to chronic abuse. - Patient is not amenable to inpatient or outpatient alcohol rehab at this time. - Have started thiamine, folic acid. - AWSS Ativan PO PRN protocol, though patient has not required so far. - Asymptomatic with regard to withdrawal symptoms at this time. - INR elevated to 1.2, with chronic anemia. - While elevated, INR decreased compared to recent admissions. - Suspect secondary to chronic alcohol abuse, though patient refuses rehab at this time. DM2: - History of, has refused insulin treatment several times. - Hgb A1c this admission 8.1%. - DM2 diet. -Metformin 500 mg twice daily, glimepiride 2 mg daily started. - Outpatient PCP follow up to discuss oral medication possibilities for BSG control. Hypomagnesemia, Hyponatremia: - On admission with magnesium 1.6 repleted in ED. - Will continue magnesium supplementation while admitting and encourage co ntinued use when discharged. - Likely secondary to malnutrition, poor PO intake except vodka. - Na on admission 129, this is patients baseline (range 128-132 over the last several months). - Etiologies include poor solute intake (tea and toast diet) with robust fluid intake in the form of alcohol. - NSS 1L given while admitted. - Patient refuses IV reinsertion at this time, encourage PO intake. - Unlikely to be prerenal given BUN, mucous membranes. No voiding difficulty making postrenal unlikely. Tobacco use history: - Current smoker, declines nicotine patch. Code Status: FULL CODE FENGI: DM2 diet, PO fluids DVT ppx: Heparin Dispo: Med/Surg, for likely placement early this upcoming week Admission and Anticipated Discharge Date Admission Date: April 28, 2020 Supervising Physician Co-Signing Physician Notes I personally examined the patient and verified all [place] points of history and exam, discussed case, and agree with decision making with Dr Covarrubias. no new complaints. papi noted nad heent nc at mmm breathing unlabored no accessory muscles good effort no tremors EtOH abuse/withdrawal - not safe by herself given that she's still easily in the window for withdrawal - not unreasonable to follow in house further. thiamine/folate uncontrolled DM2 - metformin, add sulfonylurea, follow d deficiency/mag deficiency - replace otherwise as above Subjective Patient without acute events overnight. Vitals have been stable and patient has been afebrile. Patient is without complaints of chest pain, shortness of breath, dizziness or headaches, nausea or vomiting, fevers or chills. Still feels weak in her legs and has required assistance several times to use the restroom, etc. Has not been able to reach any family members with regard to disposition home. Without symptoms of withdrawal from alcohol such as anxiety, agitation, hallucinations of any kind, palpitations. No diarrhea. Patient did not require any Ativan overnight, and nursing did note a mild tremor. Review of Systems Review of Systems: All systems reviewed & are unremarkable except as noted in HPI & below Constitutional: no fever, no chills and no malaise Respiratory: no cough and no dyspnea Cardiovascular: no chest pain, no palpitations and no edema Gastrointestinal: no abdominal pain, no constipation and no diarrhea/loose sto ols Genitourinary: no dysuria and no hematuria Physical Exam Constitutional: well developed; no altered mental status disheveled appearing Eyes: PERRL, conjunctivae normal, anicteric sclerae ENMT: external ear and nose normal, oropharynx normal Neck: normal visual inspection Respiratory: normal respiratory effort, lungs clear to auscultation Cardiovascular: RRR, no murmur, no edema Gastrointestinal (Abdomen): normal bowel sounds, soft, nontender, no hepatosplenomegaly Percussion/Palpation: no ascites Skin: no rashes, warm and dry Neurologic: AAOx3, normal speech. Mild resting tremor. Psychiatric: A+Ox3, euthymic affect Results & Data Results & Data ([facility]) Vital Signs (Past 12 Hours) Vital Signs Temp Pulse Resp BP BP Pulse Ox 04/29/20 07:53 80 188/76 H 04/29/20 06:55 36.9 C 77 18 192/82 H 200/81 H 98 04/28/20 23:39 37.5 C 78 18 166/73 H 98 Resident Activity Tracking Resident Involvement: Resident Care Provided Care Provided: Adult Hospital Medicine (1) Alcohol withdrawal syndrome Complication of substance-induced condition: uncomplicated Qualified Code(s): F10.230 - Alcohol dependence with withdrawal, uncomplicated
--- NOTE | 2020-04-29 16:28 | Billing Data ---
Date of Service April 29, 2020 Coding Level of Care Code 85613 Subseq Hosp Care Lvl 2
[2020-04-29] MEDS: HEPARIN SOD 5,000 UNIT/0.5 ML VIAL SQ SCH (20:43)
[2020-04-29] MEDS: HydrALAZINE HCL 20 MG/ML VIAL ONE ×2 (23:47→23:51)
[2020-04-30] MEDS: HydrALAZINE 10 MG TAB PO PRN (07:39)
[2020-04-30] MEDS: MAGNESIUM OXIDE 400 MG TAB PO SCH (07:39)
[2020-04-30] MEDS: FOLIC ACID 1 MG TAB PO SCH (07:39)
[2020-04-30] MEDS: METFORMIN HCL 500 MG TAB PO SCH (07:39)
[2020-04-30] MEDS: CHOLECALCIFEROL 1,000 UNITS 25 MCG TAB PO SCH (07:40)
[2020-04-30] MEDS: GLIMEPIRIDE 2 MG TAB PO SCH (07:40)
[2020-04-30] MEDS: HEPARIN SOD 5,000 UNIT/0.5 ML VIAL SQ SCH (07:44)
[2020-04-30] MEDS: THIAMINE HCL 100 MG TAB PO SCH (08:28)
[2020-04-30] MEDS ORDERED: lisinopriL 10 MG TAB PO SCH (11:00)
--- NOTE | 2020-04-30 11:01 | Discharge Summary ---
Date of Service April 30, 2020 Principal Diagnosis Deconditioning Discharge Exam Constitutional WD/WN, vitals as above Eyes PERRL, conjunctivae normal, anicteric sclerae ENMT external ear and nose normal, oropharynx normal Respiratory normal respiratory effort, lungs clear to auscultation Cardiovascular Rate/Rhythm: regular rate and regular rhythm Heart Sounds: no gallop, no murmur and no cardiac rub Gastrointestinal (Abdomen) normal bowel sounds, soft, nontender, no hepatosplenomegaly Skin no rashes, warm and dry Psychiatric Orientation: alert and oriented x 3 Discharge Data Allergies Allergy/AdvReac Type Severity Reaction Status Date / Time No Known Allergies Allergy Verified 04/27/20 21:38 Consultations 04/27/20 21:30 ED Decision to Admit Stat 04/27/20 23:41 Consult Case Management - Discharge Planning Routine Ordered Studies 04/27/20 17:33 CT head/brain wo con Stat 04/27/20 17:34 CT cervical spine wo con Stat 04/27/20 22:10 CT chest wo con Urgent Hospital Course (1) Alcohol withdrawal syndrome: 59 yo F PMHx DM2, chronic alcohol abuse presented with fall via ambulance and was admitted for alcohol intoxication with care for possible withdrawal. Fall, deconditioning: - Though on admission she was complaining of pain in her back and knee per EMR, patient continues to not complain of pain. - Per nursing patient is continuing to require a lot of assistance in order to get up to use the restroom, move from bed to chair, etc. - Suspect deconditioning with associated poor nutritional intake as well as chronic alcohol use. - PT/OT evaluations ordered, patient is amenable at this time to acute outpatient physical rehabilitation such as [facility] if suggested by PT/OT for conditioning and strength training. - accepted to [facility] for PT/OT History of alcohol abuse: - History of up to a pint of alcohol daily, most family members and recent boyfriend have all declined assisting patient with her care at their homes due to chronic abuse. - Patient is not amenable to inpatient or outpatient alcohol rehab at this time. - require no doses of Ativan while in hospital - continue thiamine, folic acid supplementation Type 2 Diabetes Mellitus: - History of, has refused insulin treatment several times. - Hgb A1c this admission 8.1%. - continue Metformin 500 mg twice daily - recheck A1c in 3 months for continued examination of glucose control Electrolyte abnormalities: - Hypomagnesemia, Hyponatremia on admission with magnesium 1.6 repleted in ED. - Will continue magnesium supplementation while admitting and encourage continued use when discharged. - Likely secondary to malnutrition, poor PO intake except vodka. - continue magnesium supplementation daily Vitamin defiencies: - continue vitamin D2, D3, thiamine, and folate supplementation daily Total Time Total Time Spent Total Time Spent (In Minutes): 30 Discharge Plan Discharge Items Patient Disposition: Transfer Inpatient Rehab Fac Reason For Visit: CONFUSION, S/P FALL Discharge Diagnosis: fall, ? alcohol withdrawal Activity: Per Instructions section Non-emergency contact: Primary Care Provider Call non-emergency contact if: you have any medication questions and your symptoms worsen Follow-up/Referrals: Allie Horn PA-C [Primary Care Provider] - Diet: Carb Consistent or DM2 Addtl Attending Provider Instructions: You were admitted to the hospital for a fall, and started on protocol to make sure that you did have alcohol withdrawal. Sometimes, alcohol withdrawal can take several days to start. You did well overnight, and had several x-rays which did not show any damage from your fall. You were given vitamins, as you were found to be vitamin deficient. You were found to be safe for discharge home with the following recommendations: Please continue to not drink alcohol. If you stop drinking alcohol and start having flutters in your chest, trouble breathing, difficulty standing up, please come back to the hospital to be evaluated for alcohol withdrawal. We have sent several vitamin prescriptions to the pharmacy for you to start taking. 1) Vitamin D2, one pill once weekly on Sundays. 2) Vitamin D3, one pill once daily. 3) Magnesium, one pill once daily. 4) Thiamine, one pill once daily. 5) Folic acid, one pill once daily. Additionally, we have started you on two new medications that you should continue to take daily going forward. 1) Metformin 500mg, one pill twice daily (this is for your blood sugar) 2) Lisinopril 10mg, one pill once daily (this is for your blood pressure) Please take these as above to maintain your vitamins when you are home. Please follow up with your primary care doctor, as a nodule was noted on your lung during your stay here. You should have repeat imaging in a few months to make sure this stays the same size or goes away. You should also talk with your primary care doctor about oral pill options for helping control your blood sugars. Please seek urgent medical attention if you have chest pain, shortness of breath, palpitations, fevers over 100.4. Pending Studies at Discharge: No Stand-Alone Forms: My [employer], Smoking Cessation Skilled Items Patient informed of condition?: Yes DNR: No Discharge Level of Care: Acute rehab Communicable Disease: No Discharge Prognosis: Improving Lines: None Urinary Catheter: No Medications and DC Order Prescriptions: New cholecalciferol (vitamin D3) [Vitamin D3] 50 mcg (2,000 unit) capsule 2,000 unit PO DAILY Qty: 30 RF: 0 thiamine mononitrate (vit B1) 100 mg tablet 100 mg PO DAILY Qty: 30 RF: 0 folic acid 1 mg tablet 1 mg PO DAILY Qty: 30 RF: 0 magnesium 250 mg tablet 250 mg PO DAILY Qty: 30 RF: 0 ergocalciferol (vitamin D2) [Vitamin D2] 1,250 mcg (50,000 unit) capsule 50,000 unit PO .Weekly Qty: 7 RF: 0 metformin [Glucophage] 500 mg Tablet 500 mg PO BIDM 30 Days Qty: 60 RF: 0 lisinopril 10 mg Tablet 10 mg PO QAM 30 Days Qty: 30 RF: 0 No Action No Known Home Medications RF: 0 Discharge Orders: Discharge Order (Routine); Ordered 04/30/20 Ordered By: Usama Quarles/Other Patient Handouts: High Blood Sugar (Hyperglycemia), Hypoglycemia (Low Blood Sugar), Managing Type 2 Diabetes, Diabetes: Meal Planning Admission Data Admit Date/Time: 04/28/20 14:12 Attending Provider: Oliver Alex Admit Provider: Sanya Crawford Primary Care Provider: Allie Horn Other Providers: Myron Reid ; Sanya Crawford ; [facility] Other Interventions: Discharge Summary Assessment (RN) Last Done: 04/30/20 11:05 Supervising Physician Co-Signing Physician Notes I also saw the patient and confirmed [place] portions of the history and physical examination. Upon examination, the patient was without complaints. She was comfortable with the idea of inpatient rehabilitation and then living with her sister post rehabilitation. In addition to the above, will also start lisinopril 10 mg daily for her elevated blood pressures. The patient states that she thinks she was on this medication previously; we discussed that this would have to be titrated both at the rehabilitation hospital and perhaps at home until blood pressure control was achieved. Otherwise, agree with the impression and plan as noted in the resident discharge summary. Resident Activity Tracking Resident Involvement: Resident Care Provided Care Provided: Adult Hospital Medicine
== END 2020-04-30 16:30 | DRG 897 ==
LOC: ED 17:05 → 2N 17:05 → SUATTDRO 22:15 → 2N 23:22 → 2W 04-28 01:11 → 2N 04-28 05:44 → SUATTDRO 04-28 14:12 → 2W 04-29 22:55

== ENCOUNTER 2020-05-09 12:51 | Inpatient (IN) ==
[2020-05-09] MEDS ORDERED: MULTI-VITAMIN INFUSION 10 ML, THIAMINE HCL 100 MG, FOLIC ACID 1 MG in SODIUM CHLORIDE 0... IV ONE (13:20)
--- NOTE | 2020-05-09 13:20 | Emergency Department Note ---
History of Present Illness General Chief complaint: Alcohol Intoxication Stated complaint: Illness Time Seen by Provider: 05/09/20 13:08 Source: patient Mode of arrival: EMS Limitations: intoxication History of Present Illness Provider complaint: Unable to get up Onset (ago): minute(s) Location: lower extremity Severity: moderate Pain Consistency: + constant Quality: + other (Unable to get herself up) Relieved By: + none Associated symptoms: no chest pain, no cough, no fever/chills, no headaches, no nausea/vomiting, no shortness of breath and no syncope This is a 59-year-old female brought in by EMS for presumed alcohol intoxication. The patient denies drinking today. She states she went to the [employer] store and was trying to get things out of her truck when she ended up on the ground and could not get up. She states that she did not fall but could not answer how she ended up on the ground. She states she did not pass out. She did not hurt herself other than accidentally ripping off her left great toenail. She denies any headache, neck pain, chest pain, shortness of breath, palpitations, fever, cough or cold symptoms, black or bloody stools, abdominal pain, vomiting or diarrhea or known exposure to COVID-19. EMS state that they found her on the grass. The original call stated that she was on the ground next to her truck. She states that she is angry that she is here. Home Medications Home Medications Medication Instructions Recorded Confirmed Type cholecalciferol (vitamin D3) 2,000 unit PO DAILY #30 cap 04/28/20 05/09/20 Rx [Vitamin D3] ergocalciferol (vitamin D2) 50,000 unit PO .Weekly #7 cap 04/28/20 05/09/20 Rx [Vitamin D2] folic acid 1 mg PO DAILY #30 tab 04/28/20 05/09/20 Rx magnesium 250 mg PO DAILY #30 tab 04/28/20 05/09/20 Rx thiamine mononitrate (vit B1) 100 mg PO DAILY #30 tab 04/28/20 05/09/20 Rx lisinopril 10 mg PO QAM 30 Days #30 tab 04/30/20 05/09/20 Rx metformin [Glucophage] 500 mg PO BIDM 30 Days #60 tab 04/30/20 05/09/20 Rx insulin glargine [Lantus U-100 0 unit SUBCUT DIRECTED 05/09/20 05/09/20 History Insulin] metoprolol tartrate 25 mg PO DIRECTED 05/09/20 05/09/20 History Allergies Allergy/AdvReac Type Severity Reaction Status Date / Time No Known Allergies Allergy Verified 04/27/20 21:38 Past Med/Surg History Medical History Alcohol abuse Hypertension Hypokalemia Hypomagnesemia Peripheral neuropathy Tinea pedis Type 2 diabetes mellitus Surgical History No pertinent past surgical history Social History Smoking Status: Current every day smoker Cigarettes Per Day: 20; Hx Alcohol Use: Yes Alcohol type: hard liquor Hx Substance Use: No Preferred Language: Icelandic Communication Ability: Effective Line Dancer Required: No Beliefs That Will Affect Care: None marital status: Single Current Living Situation: Other Current Living Situation Comment: currently living with sister Feels Safe at Home: Yes Assistive Devices: Denture - Upper, Denture - Lower, Glasses and Walker Review of Systems See HPI for pertinent positives & negatives. and A total of 10 systems reviewed and were otherwise negative Physical Exam Vital Signs Vital Signs - 24 hr 05/09/20 13:00 05/09/20 13:05 05/09/20 13:06 Temperature 37.2 C Temperature Source Oral Pulse Rate 72 78 70 Pulse Rate [Finger] Pulse Rate from SpO2 Sensor 78 71 Respiratory Rate 20 25 H 21 Respiratory Effort / Characteristics Non-Labored Respiratory Depth Normal Respiratory Pattern Regular Blood Pressure 118/58 L 118/58 L Blood Pressure [Right Arm] Blood Pressure Mean 78 98 Blood Pressure Mean [Right Arm] Pulse Oximetry 100 97 99 Oxygen Delivery Method Room Air Sepsis Recent Fever Within 48 Hours No Sepsis New/Unexplained Change in Mental Status No Sepsis Action Taken by Nursing No Action Required 05/09/20 13:10 05/09/20 13:19 05/09/20 13:20 Temperature Temperature Source Pulse Rate 67 71 Pulse Rate [Finger] Pulse Rate from SpO2 Sensor 67 Respiratory Rate 21 20 Respiratory Effort / Characteristics Respiratory Depth Respiratory Pattern Blood Pressure Blood Pressure [Right Arm] Blood Pressure Mean Blood Pressure Mean [Right Arm] Pulse Oximetry 98 100 Oxygen Delivery Method Room Air Sepsis Recent Fever Within 48 Hours Sepsis New/Unexplained Change in Mental Status Sepsis Action Taken by Nursing 05/09/20 13:30 05/09/20 13:40 05/09/20 13:50 Temperature Temperature Source Pulse Rate 65 73 82 Pulse Rate [Finger] Pulse Rate from SpO2 Sensor Respiratory Rate 22 22 12 Respiratory Effort / Characteristics Respiratory Depth Respiratory Pattern Blood Pressure Blood Pressure [Right Arm] Blood Pressure Mean Blood Pressure Mean [Right Arm] Pulse Oximetry Oxygen Delivery Method Sepsis Recent Fever Within 48 Hours Sepsis New/Unexplained Change in Mental Status Sepsis Action Taken by Nursing 05/09/20 14:00 05/09/20 14:01 05/09/20 15:14 Temperature Temperature Source Pulse Rate 78 76 Pulse Rate [Finger] 74 Pulse Rate from SpO2 Sensor Respiratory Rate 19 16 20 Respiratory Effort / Characteristics Non-Labored Respiratory Depth Normal Respiratory Pattern Blood Pressure 113/57 L Blood Pressure [Right Arm] 118/62 Blood Pressure Mean 73 Blood Pressure Mean [Right Arm] 80 Pulse Oximetry 100 98 Oxygen Delivery Method Room Air Sepsis Recent Fever Within 48 Hours Sepsis New/Unexplained Change in Mental Status Sepsis Action Taken by Nursing Constitutional: Vital signs reviewed. Eyes: Pupils are equal round reactive to light. Conjunctiva are noninjected. ENT: Pharynx is clear without erythema or exudate. Mucous membranes are dry. Neck supple without meningeal signs. No midline tenderness to the cervical spine. Respiratory: Clear to auscultation bilaterally. Breath sounds are equal bilaterally. Cardiovascular: Regular rate and rhythm. No rubs or gallops. GI: Soft, nondistended and nontender. Bowel sounds are present. Musculoskeletal: Left great toenail is avulsed. No active bleeding. No signs of laceration to the nailbed. No hip tenderness. Integumentary: No cyanosis. or jaundice. Neurological: The patient is awake and alert. No focal deficits. Appears intoxicated. Psychiatric: Appears upset. Course Administered Medications Sodium Chloride (Nss 1000ml) 1,000 mls @ 125 mls/hr IV .Q8H MARYBETH Stop: 06/08/20 15:14 Last Admin: 05/09/20 15:23 Dose: 125 mls/hr Documented by: [id number] Discontinued Medications Multivitamins 10 ml/ Thiamine HCl 100 mg/ Folic Acid 1 mg/Sodium Chloride 1,011.2 mls @ 1,011.2 mls/hr IV .Q1H ONE Stop: 05/09/20 14:19 Last Admin: 05/09/20 14:28 Dose: Not Given Documented by: [id number] Magnesium Sulfate/Dextrose (Magnesium Sulfate / D5w) 1 gm in 100 mls @ 100 mls/hr IV NOW STA Stop: 05/09/20 16:12 Last Infusion: 05/09/20 16:21 Dose: 0 mls/hr Documented by: [id number] Admin: 05/09/20 15:21 Dose: 100 mls/hr Documented by: [id number] Medical Decision Making Differential Diagnosis Alcohol intoxication, metabolic derangement, dehydration, HUONG, ICH Medical Records Attestation: I reviewed the patient's medical records. Patient was admitted for hypomagnesemia and alcohol withdrawal syndrome earlier this month. She left the hospital on the fifth. Home Medications Current Medication List: was personally reviewed by me Laboratory Data Attestation: I reviewed the patient's lab results. Result diagrams: 05/09/20 13:25 05/09/20 13:25 Lab Results 05/09/20 05/09/20 05/09/20 Range/Units 13:25 13:25 13:25 WBC (4.8-10.8) K/uL RBC (4.2-5.4) M/uL Hgb (12.0-16.0) g/dL Hct (37-47) % MCV (80-100) fL MCH (25-34) pg MCHC (32-36) g/dL RDW Std Deviation (36.4-46.3) fL RDW Coeff of Francis (11.5-14.5) % Plt Count (130-400) K/uL MPV (7.4-10.4) fL Immature Gran % (Auto) % Neut % (Auto) % Lymph % (Auto) % [place] % (Auto) % Eos % (Auto) % Baso % (Auto) % Neut # (Auto) (1.4-6.5) K/uL Lymph # (Auto) (1.2-3.4) K/uL [place] # (Auto) (0.11-0.59) K/uL Eos # (Auto) (0-0.5) K/uL Baso # (Auto) (0-0.2) K/uL Immature Gran # (Auto) (0.00-0.02) K/uL PT 11.9 (9.0-12.0) Seconds INR 1.1 (0.9-1.1) APTT 26.8 (21.0-31.0) Seconds PTT Ratio 1.0 Sodium 125 L (136-145) mmol/L Potassium 4.5 (3.5-5.1) mmol/L Chloride 93 L (98-107) mmol/L Carbon Dioxide 23 (21-32) mmol/L Anion Gap 9.0 (3-11) BUN 7 (7-18) mg/dl Creatinine 0.70 (0.6-1.2) mg/dl Est Cr Clr Drug Dosing Not Reportable Est GFR ( Amer) 109.9 Est GFR (Non-Af Amer) 94.8 BUN/Creatinine Ratio 10.6 (10-20) Glucose 228 H (70-99) mg/dl Calcium 8.7 (8.5-10.1) mg/dl Magnesium 1.7 L (1.8-2.4) mg/dl Total Bilirubin 0.4 (0.2-1) mg/dl AST 84 H (15-37) U/L ALT 47 (12-78) U/L Alkaline Phosphatase 144 H (45-117) U/L Troponin I < 0.015 (0-0.045) ng/ml Total Protein 7.2 (6.4-8.2) gm/dl Albumin 2.7 L (3.4-5.0) gm/dl Globulin 4.5 H (2.5-4.0) gm/dl Albumin/Globulin Ratio 0.6 L (0.9-2) Specimen Hemolysis Ethyl Alcohol mg/dL 347.0 H (0-3) mg/dl 05/09/20 Range/Units 13:25 WBC 8.82 (4.8-10.8) K/uL RBC 3.23 L (4.2-5.4) M/uL Hgb 10.8 L (12.0-16.0) g/dL Hct 31.5 L (37-47) % MCV 97.5 (80-100) fL MCH 33.4 (25-34) pg MCHC 34.3 (32-36) g/dL RDW Std Deviation 46.7 H (36.4-46.3) fL RDW Coeff of Francis 13.2 (11.5-14.5) % Plt Count 372 (130-400) K/uL MPV 10.9 H (7.4-10.4) fL Immature Gran % (Auto) 0.5 % Neut % (Auto) 66.9 % Lymph % (Auto) 23.6 % [place] % (Auto) 8.2 % Eos % (Auto) 0.6 % Baso % (Auto) 0.2 % Neut # (Auto) 5.91 (1.4-6.5) K/uL Lymph # (Auto) 2.08 (1.2-3.4) K/uL [place] # (Auto) 0.72 H (0.11-0.59) K/uL Eos # (Auto) 0.05 (0-0.5) K/uL Baso # (Auto) 0.02 (0-0.2) K/uL Immature Gran # (Auto) 0.04 H (0.00-0.02) K/uL PT (9.0-12.0) Seconds INR (0.9-1.1) APTT (21.0-31.0) Seconds PTT Ratio Sodium (136-145) mmol/L Potassium (3.5-5.1) mmol/L Chloride (98-107) mmol/L Carbon Dioxide (21-32) mmol/L Anion Gap (3-11) BUN (7-18) mg/dl Creatinine (0.6-1.2) mg/dl Est Cr Clr Drug Dosing Est GFR ( Amer) Est GFR (Non-Af Amer) BUN/Creatinine Ratio (10-20) Glucose (70-99) mg/dl Calcium (8.5-10.1) mg/dl Magnesium (1.8-2.4) mg/dl Total Bilirubin (0.2-1) mg/dl AST (15-37) U/L ALT (12-78) U/L Alkaline Phosphatase (45-117) U/L Troponin I (0-0.045) ng/ml Total Protein (6.4-8.2) gm/dl Albumin (3.4-5.0) gm/dl Globulin (2.5-4.0) gm/dl Albumin/Globulin Ratio (0.9-2) Specimen Hemolysis Ethyl Alcohol mg/dL (0-3) mg/dl Imaging Data Radiologist's Impression: CT head/brain wo con CLINICAL HISTORY: Change in mental status. Unresponsive episode. COMPARISON STUDY: 04/27/2020 TECHNIQUE: Axial CT of the brain is performed from the vertex to the skull base. IV contrast was not administered for this examination. A dose lowering technique was utilized adhering to the principles of ALARA. CT DOSE: 537.48 mGy.cm FINDINGS: No intra or extra-axial mass lesions are visualized. There is no CT evidence of acute cortical infarction. There is no evidence of midline shift. There is no acute hemorrhage. No calvarial fractures are visualized. There are minor white matter hypodensities likely on a small vessel basis. There is mild cerebellar atrophy. There is no evidence of pathologic ventricular dilatation. There is no evidence of acute sinusitis. There is left parietal scalp edema. IMPRESSION: 1. Left parietal scalp edema. 2. No acute intracranial findings. ACT 112: Negative or not required by law. Electronically signed by: Roly Patel M.D. 05/09/2020 2:38 PM ECG Data Attestation: I personally reviewed and interpreted this ECG as follows: Indication: + other (fall) Rate (beats per minute): 69 Rhythm: + normal sinus ECG Intervals/blocks: + Normal QT ECG [place]: + Normal ECG ST segments: no ST elevation ECG Findings: no PVCs Head Trauma GCS Score: 15 MDM Narrative I did evaluate the patient as noted above. The patient is presenting after falling down in her driveway. She states she did not fall but she was on the ground and could not explain how she was on the ground. She does appear intoxicated. She has no complaints other than an avulsion to the left toenail. She is upset and wants to go home. IV access was established. I did treat her with a banana bag IV. I did place an order for continuous cardiac monitoring. The monitor showed normal sinus rhythm at a rate of 74 bpm. I did order and personally review the patient's 12-lead EKG as described above. She has no acute ischemic changes on twelve-lead EKG. No evidence of dysrhythmia. I did order and review the patient's blood work as noted in the electronic medical record. Her sodium is 125 this is down from her prior visit. She also has hyperglycemia and hypomagnesemia. Her serum alcohol is 347. I did treat the patient with normal saline IV. She was also given IV magnesium. I did order a CT of the head. I did review the images myself as well as the radiology report as described above. She has soft tissue swelling to the left parietal scalp but no evidence of acute intracranial abnormality. I did discuss the test results with the patient. I did recommend hospitalization for further care and evaluation. I did discuss case with the hospitalist and immigration case worker. Impression & Plan Alcohol intoxication, Hypomagnesemia, Acute hyponatremia, Acute head injury, Acute dehydration, Avulsed toenail Discharge Plan Visit Data Chief Complaint: Alcohol Intoxication Stated Complaint: Illness ED Provider: Devin Hernandez Discharge Problem: Alcohol intoxication, Hypomagnesemia, Acute hyponatremia, Acute head injury, Acute dehydration, Avulsed toenail Patient Disposition: Being Evaluated by Hospitalist Forms Stand Alone Forms: My [facility] [address] Prescriptions Prescriptions: No Action cholecalciferol (vitamin D3) [Vitamin D3] 50 mcg (2,000 unit) capsule 2,000 unit PO DAILY Qty: 30 RF: 0 thiamine mononitrate (vit B1) 100 mg tablet 100 mg PO DAILY Qty: 30 RF: 0 folic acid 1 mg tablet 1 mg PO DAILY Qty: 30 RF: 0 magnesium 250 mg tablet 250 mg PO DAILY Qty: 30 RF: 0 ergocalciferol (vitamin D2) [Vitamin D2] 1,250 mcg (50,000 unit) capsule 50,000 unit PO .Weekly Qty: 7 RF: 0 metformin [Glucophage] 500 mg Tablet 500 mg PO BIDM 30 Days Qty: 60 RF: 0 lisinopril 10 mg Tablet 10 mg PO QAM 30 Days Qty: 30 RF: 0 Lantus U-100 Insulin 100 unit/mL solution 0 unit SUBCUT DIRECTED RF: 0 metoprolol tartrate 25 mg tablet 25 mg PO DIRECTED RF: 0 Referrals Referrals: Allie Horn PA-C [Primary Care Provider] -
[2020-05-09 13:40] LABS: Basophils # (auto) 0.02 K/uL (0-0.2); Basophils % (auto) 0.2 %; Eosinophils # (auto) 0.05 K/uL (0-0.5); Eosinophils % (auto) 0.6 %; Hematocrit (blood only) 31.5 % (37-47); Hemoglobin 10.8 g/dL (12.0-16.0); Immature Granulocytes # (auto) 0.04 K/uL (0.00-0.02); Immature Granulocytes % (auto) 0.5 %; Lymphocytes # (auto) 2.08 K/uL (1.2-3.4); Lymphocytes % (auto) 23.6 %; Mean Corpuscular Hemoglobin 33.4 pg (25-34); Mean Corpuscular Hgb Conc 34.3 g/dL (32-36); Mean Corpuscular Volume 97.5 fL (80-100); Mean Platelet Volume 10.9 fL (7.4-10.4); Monocytes # (auto) 0.72 K/uL (0.11-0.59); Monocytes % (auto) 8.2 %; Neutrophils # (auto) 5.91 K/uL (1.4-6.5); Neutrophils % (auto) 66.9 %; Platelet Count 372 K/uL (130-400); RDW Coefficient of Variation 13.2 % (11.5-14.5); RDW Standard Deviation 46.7 fL (36.4-46.3); Red Blood Count 3.23 M/uL (4.2-5.4); White Blood Count 8.82 K/uL (4.8-10.8)
--- NOTE | 2020-05-09 13:45 | Electrocardiogram Report ---
Test Reason : Blood Pressure : / mmHG Vent. Rate : 069 BPM Atrial Rate : 069 BPM P-R Int : 152 ms QRS Dur : 074 ms QT Int : 410 ms P-R-T Axes : 044 054 047 degrees QTc Int : 439 ms Poor data quality, interpretation may be adversely affected Normal sinus rhythm Normal ECG When compared with ECG of 17-APR-2020 06:43, No significant change was found Confirmed by Satish Garsia ([id number]) on 05/09/2020 1:45:29 PM Referred By: Confirmed By:Satish Garsia
[2020-05-09 13:51] LABS: INR 1.1 (0.9-1.1); Partial Thromboplastin Time 26.8 Seconds (21.0-31.0); Prothrombin Time 11.9 Seconds (9.0-12.0)
[2020-05-09 14:01] LABS: Alanine Aminotransferase 47 U/L (12-78); Albumin Level 2.7 gm/dl (3.4-5.0); Aspartate Aminotransferase 84 U/L (15-37); BUN Creatinine Ratio 10.6 (10-20); Blood Urea Nitrogen 7 mg/dl (7-18); Calcium 8.7 mg/dl (8.5-10.1); Carbon Dioxide 23 mmol/L (21-32); Chloride 93 mmol/L (98-107); Est GFR (African American) 109.9; Est GFR (Non-African American) 94.8; Glucose 228 mg/dl (70-99); Magnesium 1.7 mg/dl (1.8-2.4); Potassium 4.5 mmol/L (3.5-5.1); Sodium 125 mmol/L (136-145)
[2020-05-09 14:10] LABS: Albumin Globulin Ratio 0.6 (0.9-2); Alkaline Phosphatase 144 U/L (45-117); Bilirubin,Total 0.4 mg/dl (0.2-1); Globulin 4.5 gm/dl (2.5-4.0); Total Protein 7.2 gm/dl (6.4-8.2); Troponin I < 0.015 ng/ml (0-0.045)
--- NOTE | 2020-05-09 14:39 | CT Scan Report ---
CT head/brain wo con CLINICAL HISTORY: Change in mental status. Unresponsive episode. COMPARISON STUDY: 04/27/2020 TECHNIQUE: Axial CT of the brain is performed from the vertex to the skull base. IV contrast was not administered for this examination. A dose lowering technique was utilized adhering to the principles of ALARA. CT DOSE: 537.48 mGy.cm FINDINGS: No intra or extra-axial mass lesions are visualized. There is no CT evidence of acute cortical infarc tion. There is no evidence of midline shift. There is no acute hemorrhage. No calvarial fractures ar e visualized. There are minor white matter hypodensities likely on a small vessel basis. There is mild cerebellar a trophy. There is no evidence of pathologic ventricular dilatation. There is no evidence of acute sinusitis. There is left parietal scalp edema. IMPRESSION: 1. Left parietal scalp edema. 2. No acute intracranial findings. ACT 112: Negative or not required by law. Electronically signed by: Roly Patel M.D. 05/09/2020 2:38 PM
[2020-05-09] MEDS ORDERED: MAGNESIUM SULFATE / D5W 1 GM/100 ML BAG IV STA ×2 (15:13→17:16)
[2020-05-09] MEDS ORDERED: SODIUM CHLORIDE 0.9% 1000ML 1,000 ML IV SCH (15:15)
--- NOTE | 2020-05-09 17:16 | History & Physical Report ---
Date of Service May 09, 2020 Assessment & Plan (1) Alcohol intoxication: Patient's blood alcohol level markedly elevated (>300). Records indicate she typically consumes up to a pint of liquor/day however she minimized this significantly during my admission assessment (even told me it had been 2+ weeks since last beverage). At risk of alcohol withdrawal. Place on gabapentin protocol. Monitored bed. Ativan prn per protocol. Seizure, withdrawal, fall, and aspiration precautions. May need 1:1. I cannot rule out that a withdrawal seizure led to her ending up on the ground outside her vehicle in a parking lot. Place on high-dose thiamine, folic acid, MVI. IV fluids. NPO status until she is more awake/alert. Desperately needs to have sobriety but has refused rehab on past admissions. (2) Alcohol abuse: Long-standing. Heavy. Prior admissions for alcohol-related issues. At minimum has alcoholic hepatitis with elevated AST, etc. Consider u/s - r/o early cirrhosis. Check acute hepatitis profile, r/o HepA/B/C. Social work consult to help with post-d/c care. Previously has refused acute alcohol rehab. (3) Toxic encephalopathy: 2nd to alcohol. I cannot rule out metabolic causes contributing to presentation -- hyponatremia, Wernicke's-Korsakov's syndrome, etc. Patient appears volume depleted; hydrate, place on high-dose IV thiamine, serial exams. CT head without ICH, stroke, or fracture. Cannot rule out that a head injury is not contributing to confusion. (4) Hypomagnesemia: 2nd to alcoholism and poor oral intake. mag sulfate 2gms IV x 1. repeat level am. (5) Acute hyponatremia: Patient appears volume depleted. Hydrate with isotonic saline at 100cc/hr x 2 liters. Repeat BMP in am. (6) Acute head injury: Has left-sided parietal scalp swelling c/w head injury. Head injury could be contributing to confusion. Supportive care. Serial exams. (7) Acute dehydration: Isotonic fluids. Repeat bmp/mag in am. NPO until more awake/alert. (8) Avulsed toenail: Left great toe. Adaptic covered w/ kerlex. (9) Left leg swelling: Check doppler, r/o DVT. (10) Peripheral neuropathy: Suspect T2DM and/or heavy alcoholism contributing. Previous B12 level wnl. The neuropathy will set her up for gait disturbance and falls. PT, OT when able. (11) Type 2 diabetes mellitus: BSGs q6h. Novolog correction. May need basal insulin. Very poor candidate for metformin due to risk of lactic acidosis in setting of alcohol abuse. Would not prescribe metformin at d/c. (12) DVT prophylaxis: heparin 5000 TID. (13) Abnormal CT of the chest: 04/27 CT chest with groundglass opacities b/l. COVID-19 PCR at that time negative. I repeated a cxr today - still with interstitial infiltrates. Aspiration?? I am going to repeat a COVID-19 test in light of cough, alcoholism, cxr findings, etc. (14) Homeless: social work consult. I spoke with ER window caser and adult protective services referral made in light of her current status. History of Present Illness Chief Complaint: fall vs syncope Primary Care Provider: Allie Horn PA-C 59yo female with long-standing alcoholism, T2DM, and noncompliance who presents via EMS to [facility] after being found down on the ground in a parking lot near her truck. The exact details are uncertain as to what happened as the events leading up to being found were not witnessed. There are reports she was in a [employer] parking lot. Patient told EMS and intake personnel at [facility] that she didn't fall or pass out but she couldn't tell anyone exactly what occurred. Of note- patient had a brief hospitalization in March 2020 for cellulitis and bacteremia. She left AMA from that hospital stay. She had a 2nd hospitalization from 04/27 to 04/30 for deconditioning and concern for developing alcohol withdrawal. Apparently she never had significant withdrawal symptoms during that stay. COVID testing on 04/27 was negative. The patient's story was confusing to follow and shifted from topic to topic. She often laughed inappropriately during the encounter. She stated her last drink was 2.5 weeks ago. She denied tobacco use (although EMR reports she is a smoker). She denied drug use saying "no, no, no." She initially told me that "she has been in the hospital the last 4 days" then, a short while later, she told me she was staying with her boyfriend in [place]. She then began to talk about her dogs and "going to see them." I asked her again where she had been staying and finally she said she was living out of her truck. She could not tell me where she was getting her food & meals. She simply said "I get food stamps." She has a son in [place] but when asked about him she quickly changed the subject. Her left great toenail came off at some point today. She could not tell me how it happened. She told me the year was 2009 but knew it was April. Allergies Allergy/AdvReac Type Severity Reaction Status Date / Time No Known Allergies Allergy Verified 04/27/20 21:38 Home Medications Home Medications Medication Instructions Recorded Confirmed Type cholecalciferol (vitamin D3) 2,000 unit PO DAILY #30 cap 04/28/20 05/09/20 Rx [Vitamin D3] ergocalciferol (vitamin D2) 50,000 unit PO .Weekly #7 cap 04/28/20 05/09/20 Rx [Vitamin D2] folic acid 1 mg PO DAILY #30 tab 04/28/20 05/09/20 Rx magnesium 250 mg PO DAILY #30 tab 04/28/20 05/09/20 Rx thiamine mononitrate (vit B1) 100 mg PO DAILY #30 tab 04/28/20 05/09/20 Rx lisinopril 10 mg PO QAM 30 Days #30 tab 04/30/20 05/09/20 Rx metformin [Glucophage] 500 mg PO BIDM 30 Days #60 tab 04/30/20 05/09/20 Rx insulin glargine [Lantus U-100 0 unit SUBCUT DIRECTED 05/09/20 05/09/20 History Insulin] metoprolol tartrate 25 mg PO DIRECTED 05/09/20 05/09/20 History Past Med/Surg History Medical History Alcohol abuse Hypertension Hypokalemia Hypomagnesemia Peripheral neuropathy Tinea pedis Type 2 diabetes mellitus Surgical History No pertinent past surgical history Family History (Updated 05/09/20 @ 18:46 by David Shabazz) Father Dementia Mother Diabetes Social History (Updated 05/09/20 @ 18:48 by David Shabazz) Smoking Status: Current every day smoker Cigarettes Per Day: 20; Hx Alcohol Use: Yes Alcohol type: hard liquor Alcohol Intake Frequency Comment: daily, at least 3 shots Hx Substance Use: No Preferred Language: Yoruba Communication Ability: Effective Job Recruiter Required: No Beliefs That Will Affect Care: None marital status: Single Current Living Situation: Homeless Current Living Situation Comment: living in her truck current occupational status: disabled How many Children do You have: 1 How many Children do You have Comment: son Feels Safe at Home: Yes Assistive Devices: Denture - Upper, Denture - Lower, Glasses and Walker Review of Systems Constitutional: + fatigue and + weakness; no fever, no chills, no anorexia and no weight loss Eyes: no worsening vision Ear, Nose, Mouth, Throat: no nasal congestion and no sore throat Respiratory: + cough; no dyspnea and no dyspnea on exertion Cardiovascular: no chest pain Gastrointestinal: no abdominal pain, no nausea, no vomiting and no diarrhea/loose stools Genitourinary: + difficulty urinating; no dysuria Musculoskeletal: no joint pain Integumentary: + lesions (legs - from her dog scratching them?) Neurologic: + loss of sensation (hands/feet ) Psychiatric: no substance abuse Endocrine: not checking fingerstick blood sugars Hematologic / Lymphatic: no unexplained weight loss Physical Exam Constitutional: + ill appearing, + altered mental status and + frail appearing; no acute distress looks older than stated age Eyes: + anicteric sclerae, PERRL and + nystagmus (horizontal) ENMT: Ears: no TM abnormality Mouth: + dry oral mucous membranes head - mild left parietal swelling on palpation; no laceration, no hematoma Neck: trachea midline, no thyromegaly Respiratory: no respiratory distress Auscultation: + rales (soft, b/l bases ); no wheezes Cardiovascular: Rate/Rhythm: regular rate and regular rhythm Heart Sounds: normal S1, normal S2 and + murmur (1/6 ZACHARY LLSB) Vessels: posterior tibial pulses present and dorsalis pedis pulses present; no JVD Extremities: no edema feet very cool to touch Gastrointestinal (Abdomen): normal bowel sounds, soft, nontender, no hepatosplenomegaly Musculoskeletal: Extremities: + clubbing dirt under nails Skin: + ulcer (knees) and + excoriations (legs) numerous tattoos on legs and arms; absent left great toenail (recent avulsion injury) Neurologic: deep tendon reflexes 2+ bilaterally (slightly brisk b/l ), moves all extremities and + confused Psychiatric: Orientation: alert and oriented to person; + not oriented to place and + not oriented to time Lymphatic: + cervical lymphadenopathy (b/l ) Results & Data Results & Data ([facility]) Vital Signs (Past 12 Hours) Vital Signs Temp Pulse Pulse Resp BP BP Pulse Ox 05/09/20 15:14 74 20 118/62 98 05/09/20 14:01 76 16 113/57 L 100 05/09/20 14:00 78 19 05/09/20 13:50 82 12 05/09/20 13:40 73 22 05/09/20 13:30 65 22 05/09/20 13:20 71 20 05/09/20 13:19 100 05/09/20 13:10 67 21 98 05/09/20 13:06 70 21 118/58 L 99 05/09/20 13:05 78 25 H 97 05/09/20 13:00 37.2 C 72 20 118/58 L 100 Laboratory Results Laboratory Results - last 24 hr 05/09/20 05/09/20 05/09/20 13:25 13:25 13:25 WBC RBC Hgb Hct MCV MCH MCHC RDW Std Deviation RDW Coeff of Francis Plt Count MPV Immature Gran % (Auto) Neut % (Auto) Lymph % (Auto) Mobile % (Auto) Eos % (Auto) Baso % (Auto) Neut # (Auto) Lymph # (Auto) Mobile # (Auto) Eos # (Auto) Baso # (Auto) Immature Gran # (Auto) PT 11.9 INR 1.1 APTT 26.8 PTT Ratio 1.0 Sodium 125 L Potassium 4.5 Chloride 93 L Carbon Dioxide 23 Anion Gap 9.0 BUN 7 Creatinine 0.70 Est Cr Clr Drug Dosing Not Reportable Est GFR ( Amer) 109.9 Est GFR (Non-Af Amer) 94.8 BUN/Creatinine Ratio 10.6 Glucose 228 H Calcium 8.7 Magnesium 1.7 L Total Bilirubin 0.4 AST 84 H ALT 47 Alkaline Phosphatase 144 H Ammonia Total Creatine Kinase Troponin I < 0.015 Total Protein 7.2 Albumin 2.7 L Globulin 4.5 H Albumin/Globulin Ratio 0.6 L Specimen Hemolysis Ethyl Alcohol mg/dL 347.0 H Hepatitis A IgM Ab Hep Bs Antigen Hep B Core IgM Ab Hepatitis C Antibody 05/09/20 05/09/20 05/09/20 13:25 13:25 18:36 WBC 8.82 RBC 3.23 L Hgb 10.8 L Hct 31.5 L MCV 97.5 MCH 33.4 MCHC 34.3 RDW Std Deviation 46.7 H RDW Coeff of Francis 13.2 Plt Count 372 MPV 10.9 H Immature Gran % (Auto) 0.5 Neut % (Auto) 66.9 Lymph % (Auto) 23.6 Mobile % (Auto) 8.2 Eos % (Auto) 0.6 Baso % (Auto) 0.2 Neut # (Auto) 5.91 Lymph # (Auto) 2.08 Mobile # (Auto) 0.72 H Eos # (Auto) 0.05 Baso # (Auto) 0.02 Immature Gran # (Auto) 0.04 H PT INR APTT PTT Ratio Sodium Potassium Chloride Carbon Dioxide Anion Gap BUN Creatinine Est Cr Clr Drug Dosing Est GFR ( Amer) Est GFR (Non-Af Amer) BUN/Creatinine Ratio Glucose Calcium Magnesium Total Bilirubin AST ALT Alkaline Phosphatase Ammonia Total Creatine Kinase 156 Troponin I Total Protein Albumin Globulin Albumin/Globulin Ratio Specimen Hemolysis Ethyl Alcohol mg/dL Hepatitis A IgM Ab Hep Bs Antigen Pending Hep B Core IgM Ab Hepatitis C Antibody Pending 05/09/20 05/09/20 18:36 18:36 WBC RBC Hgb Hct MCV MCH MCHC RDW Std Deviation RDW Coeff of Francis Plt Count MPV Immature Gran % (Auto) Neut % (Auto) Lymph % (Auto) Mobile % (Auto) Eos % (Auto) Baso % (Auto) Neut # (Auto) Lymph # (Auto) Mobile # (Auto) Eos # (Auto) Baso # (Auto) Immature Gran # (Auto) PT INR APTT PTT Ratio Sodium Potassium Chloride Carbon Dioxide Anion Gap BUN Creatinine Est Cr Clr Drug Dosing Est GFR ( Amer) Est GFR (Non-Af Amer) BUN/Creatinine Ratio Glucose Calcium Magnesium Total Bilirubin AST ALT Alkaline Phosphatase Ammonia Pending Total Creatine Kinase Troponin I Total Protein Albumin Globulin Albumin/Globulin Ratio Specimen Hemolysis Ethyl Alcohol mg/dL Hepatitis A IgM Ab Pending Hep Bs Antigen Hep B Core IgM Ab Pending Hepatitis C Antibody Diagnostic Findings CT head - no ICH or fracture EKG - my reading - NSR, diffuse mild j-point elevation especially lateral leads, no ST changes Code Status & VTE Plan Code Status full VTE Prophylaxis Plan VTE Prophylaxis will be ordered: Yes PG Care Time/CCT Total # of Minutes Spent Total Time Spent with Patient: Total time spent is greater than 50% in coordination of care (as documented) at patient's floor/unit and/or counseling patient: Coding Level of Care Code 71753 Initial Inpt Care Lvl 3 Diagnoses Alcohol intoxication F10.929 Complication of substance-induced condition: with unspecified complication Alcohol abuse F10.10 Toxic encephalopathy G92 Hypomagnesemia E83.42 Acute hyponatremia E87.1 Acute head injury S09.90XA Encounter type: initial encounter Acute dehydration E86.0 Avulsed toenail S91.209A Encounter type: initial encounter Left leg swelling M79.89 Peripheral neuropathy G62.9 Peripheral neuropathy type: polyneuropathy, unspecified Type 2 diabetes mellitus E11.9 Diabetes mellitus detention insulin use: without rn long term care use Diabetes mellitus complication status: without complication DVT prophylaxis Z29.[address] of the chest R93.89 Homeless Z59.0 (1) Alcohol intoxication Complication of substance-induced condition: with unspecified complication Qualified Code(s): F10.929 - Alcohol use, unspecified with intoxication, unspecified (2) Acute head injury Encounter type: initial encounter Qualified Code(s): S09.90XA - Unspecified injury of head, initial encounter (3) Avulsed toenail Encounter type: initial encounter Qualified Code(s): S91.209A - Unspecified open wound of unspecified toe(s) with damage to nail, initial encounter (4) Peripheral neuropathy Peripheral neuropathy type: polyneuropathy, unspecified Qualified Code(s): G62.9 - Polyneuropathy, unspecified (5) Type 2 diabetes mellitus Diabetes mellitus rn long term care insulin use: without detention use Diabetes mellitus complication status: without complication Qualified Code(s): E11.9 - Type 2 diabetes mellitus without complications
--- NOTE | 2020-05-09 18:03 | XRay Report ---
XR chest 1V portable CLINICAL HISTORY: b/l rales; eval pneumonia COMPARISON STUDY: 04/27/2020 FINDINGS: The cardiac and mediastinal contours remain able. There is persistent elevation of the inte rstitium. There is no focal pulmonary consolidation. There are no pleural effusions. There are no ple ural effusions.[ IMPRESSION: 1. Stable mild residual thickening/edema. No evidence of focal pulmonary consolidation ACT 112: Negative or not required by law. Electronically signed by: Roly Patel M.D. 05/09/2020 6:02 PM
[2020-05-09 19:44] LABS: Hepatitis B Surface Antigen Neg (Neg)
[2020-05-09 20:12] LABS: Hepatitis C IgG 13Yrs+Old_Rflx Neg (Neg)
[2020-05-09] MEDS ORDERED: LORazepam 1 MG TAB PO PRN (22:01)
[2020-05-09] MEDS ORDERED: ONDANSETRON INJ 2 MG/ML 2 ML VIAL IV PRN (22:01)
[2020-05-09] MEDS ORDERED: GABAPENTIN 400 MG CAP PO ONE (22:01)
[2020-05-09] MEDS ORDERED: LORazepam 1 MG/2 ML VIAL IV PRN (22:01)
[2020-05-09] MEDS ORDERED: GABAPENTIN 800MG ALCOHOL WITHDRAWAL LOAD PO STA (22:01)
[2020-05-09] MEDS ORDERED: GLUCOSE 40% GEL 15 GM TUBE PO PRN (22:15)
[2020-05-09] MEDS ORDERED: GLUCOSE 10 TABS/TUBE PO PRN (22:15)
[2020-05-09] MEDS ORDERED: DEXTROSE 50% 50 ML SYRINGE IV PRN (22:15)
[2020-05-09] MEDS ORDERED: CARBOHYDRATES FOR HYPOGLYCEMIA PO PRN (22:15)
[2020-05-09] MEDS ORDERED: GLUCAGON FOR INJ 1 MG VIAL IM PRN (22:15)
[2020-05-09 23:15] LABS: Amphetamines+Metham, Urine Neg (Neg); Barbiturates, Urine Neg (Neg); Benzodiazepine, Urine Neg (Neg); Cocaine, Urine Neg (Neg); MDMA (Ecstacy), Urine Neg (Neg); Methadone, Urine Neg (Neg); Opiate, Urine Neg (Neg); Phencyclidine, Urine Neg (Neg)
[2020-05-09] MEDS: MAGNESIUM OXIDE 400 MG TAB PO SCH (23:36)
[2020-05-09] MEDS: HEPARIN SOD 5,000 UNIT/0.5 ML VIAL SQ SCH (23:40)
[2020-05-09] MEDS: THIAMINE HCL 200 MG in SODIUM CHLORIDE 0.9% 50 ML IV SCH (23:44)
[2020-05-09] MEDS: SODIUM CHLORIDE 0.9% 1000ML 1,000 ML IV SCH (23:50)
[2020-05-09] MEDS: INSULIN ASPART 100 UNITS/ML 3 ML PEN SC SCH (23:53)
[2020-05-10] MEDS: HEPARIN SOD 5,000 UNIT/0.5 ML VIAL SQ SCH ×3 (05:43→21:23)
[2020-05-10] MEDS: GABAPENTIN 400 MG CAP PO SCH ×3 (05:44→21:23)
[2020-05-10] MEDS: INSULIN ASPART 100 UNITS/ML 3 ML PEN SC SCH ×3 (06:05→17:33)
--- NOTE | 2020-05-10 07:15 | Ultrasound Report ---
ULTRASOUND LEFT LOWER EXTREMITY VENOUS CLINICAL HISTORY: Left lower extremity edema. COMPARISON STUDY: No priors. TECHNIQUE: Real-time, grayscale, and color Doppler sonography of the deep veins of the left lower ext remity was performed from the inguinal crease to the calf. Compression and augmentation were utilized . FINDINGS: There is no sonographic evidence of deep venous thrombosis identified in the left lower ext remity. The common femoral, superficial femoral, and popliteal veins are patent and normally compress ible. The greater saphenous vein and the profunda femoris vein at the junction with the common femora l vein are clear. The visualized calf veins are patent. IMPRESSION: There is no sonographic evidence of deep venous thrombosis identified in the left lower e xtremity. ACT 112: Negative or not required by law. Electronically signed by: Leo Fields M.D. 05/10/2020 7:14 AM
[2020-05-10] MEDS: SODIUM CHLORIDE 0.9% 1000ML 1,000 ML IV SCH ×2 (07:59→18:24)
[2020-05-10] MEDS: MAGNESIUM OXIDE 400 MG TAB PO SCH ×2 (08:00→21:23)
[2020-05-10] MEDS: FOLIC ACID 1 MG in SYRINGE 9.8 ML IV SCH (08:00)
[2020-05-10] MEDS: CEROVITE ADV FORMULA TAB PO SCH (08:00)
[2020-05-10] MEDS: THIAMINE HCL 200 MG in SODIUM CHLORIDE 0.9% 50 ML IV SCH ×2 (08:04→21:32)
[2020-05-10 08:21] LABS: Albumin Level 2.4 gm/dl (3.4-5.0); BUN Creatinine Ratio 14.8 (10-20); Calcium 8.7 mg/dl (8.5-10.1); Creatinine Clr Calc Pharmacy 136.3 ml/min; Est GFR (African American) 128.1; Est GFR (Non-African American) 110.5; Potassium 4.4 mmol/L (3.5-5.1)
[2020-05-10 08:23] LABS: Albumin Globulin Ratio 0.6 (0.9-2); Bilirubin,Total 0.6 mg/dl (0.2-1); Total Protein 6.4 gm/dl (6.4-8.2)
--- NOTE | 2020-05-10 17:01 | Hospitalist Progress Note ---
Date of Service May 10, 2020 Assessment & Plan (1) Alcohol intoxication: Patient's blood alcohol level markedly elevated (>300) at time of admission. Records indicate she typically consumes up to a pint of liquor/day. Intoxication is resolved; mental status back to baseline. (2) Alcohol abuse: Long-standing. Heavy. Prior admissions for alcohol-related issues. Acute hepatitis profile thus far negative. Cont gabapentin protocol. Cont ativan prn. Withdrawal protocol in place. Cont high-dose IV thiamine, folic acid, and MVI. (3) Toxic encephalopathy: 2nd to alcohol. Resolved. CT head without ICH, stroke, or fracture. Cont high-dose IV thiamine. (4) Hypomagnesemia: 2nd to alcoholism and poor oral intake. repleted and resolved. (5) Acute hyponatremia: 2nd volume depletion - improving. na 130 today. cont IV fluids. repeat BMP am. (6) Acute head injury: Has left-sided parietal scalp swelling c/w head injury. Patient today states this is from about 1 week ago (had prior hospital stay recently). Mentation much better today. (7) Acute dehydration: resolving cont IVF bmp am (8) Avulsed toenail: Left great toe. Adaptic covered w/ kerlex. (9) Left leg swelling: doppler neg for DVT (10) Peripheral neuropathy: Suspect T2DM and/or heavy alcoholism contributing. Previous B12 level wnl. The neuropathy will set her up for gait disturbance and falls. PT, OT consults ordered. (11) Type 2 diabetes mellitus: BSGs q6h. Novolog correction. Add basal insulin. Very poor candidate for metformin due to risk of lactic acidosis in setting of alcohol abuse. Would not prescribe metformin at d/c. (12) DVT prophylaxis: heparin 5000 TID. (13) Abnormal CT of the chest: 04/27 CT chest with groundglass opacities b/l. COVID-19 PCR at that time negative. I repeated a cxr today - still with interstitial infiltrates. Repeat COVID-19 test 05/09 neg. No pulm sx's at this time. (14) Homeless: social work consult appreciated. Referral was made to adult protective services due to homelessness status, etc. spoke with human services case manager - list of homeless shelters and resources given to patient today. unfortunately she has no interest in alcohol rehab. also declining nicoderm patch. (15) Tobacco use: Admission and Anticipated Discharge Date Admission Date: May 09, 2020 Subjective patient eating her full liquids tray upon my arrival. she asked for more food/regular tray. she is feeling good today. denies any complaints. much more awake, alert, and oriented today. she again confirms she has been living out of her truck of late. she states "I have to find a place to live before the winter - can't run the heater all night." does not have any interest in pursuing alcohol rehab at this time - wants to focus on finding custodial. she again minimizes the drinking. I made her aware that her blood alcohol level was >350 yesterday and she said "oh, come on, I didn't drink that much." tele overnight wnl. Review of Systems Respiratory: no cough and no dyspnea Cardiovascular: no chest pain Gastrointestinal: no abdominal pain, no nausea and no vomiting Neurologic: + tremor(s) (states these are chronic ) Physical Exam Constitutional: no acute distress and no altered mental status looks older than stated age Eyes: + anicteric sclerae ENMT: external ear and nose normal, oropharynx normal Mouth: oral mucous membranes not dry Respiratory: no respiratory distress Auscultation: + wheezes (minimal wheeze end-exp) Cardiovascular: Rate/Rhythm: regular rate and regular rhythm Heart Sounds: normal S1, normal S2 and + murmur (1/6 ZACHARY LLSB) Vessels: posterior tibial pulses present and dorsalis pedis pulses present; no JVD Extremities: no edema Gastrointestinal (Abdomen): normal bowel sounds, soft, nontender, no hepatosplenomegaly Neurologic: Motor/Sensory: + tremor (fine - arms ) Psychiatric: Orientation: alert and oriented x 3 Results & Data Results & Data ([facility]) Vital Signs (Past 12 Hours) Vital Signs Temp Pulse Pulse Resp BP BP Pulse Ox 05/10/20 15:09 37.2 C 86 22 175/53 H 95 05/10/20 12:26 36.7 C 79 20 177/76 H 98 05/10/20 07:35 83 05/10/20 07:22 36.9 C 86 18 103/81 95 Laboratory Results Laboratory Results - last 24 hr 05/09/20 05/09/20 05/09/20 13:25 18:36 18:36 Sodium Potassium Chloride Carbon Dioxide Anion Gap BUN Creatinine Est Cr Clr Drug Dosing Est GFR ( Amer) Est GFR (Non-Af Amer) BUN/Creatinine Ratio Glucose POC Glucose Calcium Magnesium Total Bilirubin AST ALT Alkaline Phosphatase Ammonia Total Creatine Kinase 156 Total Protein Albumin Globulin Albumin/Globulin Ratio Urine Opiates Screen Ur Methadone, Qual Urine Barbiturates Ur Phencyclidine (PCP) U Amphetamin/Meth Scrn MDMA (Ecstasy) Screen U Benzodiazepines Scrn Ur Cocaine Metabolite U Marijuana (THC) Screen COVID-19 Eval Order COVID-19 PCR Hepatitis A IgM Ab Pending Hep Bs Antigen Neg Hep B Core IgM Ab Pending Hepatitis C Antibody Neg 05/09/20 05/09/20 05/09/20 18:36 18:47 18:47 Sodium Potassium Chloride Carbon Dioxide Anion Gap BUN Creatinine Est Cr Clr Drug Dosing Est GFR ( Amer) Est GFR (Non-Af Amer) BUN/Creatinine Ratio Glucose POC Glucose Calcium Magnesium Total Bilirubin AST ALT Alkaline Phosphatase Ammonia < 10.0 L Total Creatine Kinase Total Protein Albumin Globulin Albumin/Globulin Ratio Urine Opiates Screen Ur Methadone, Qual Urine Barbiturates Ur Phencyclidine (PCP) U Amphetamin/Meth Scrn MDMA (Ecstasy) Screen U Benzodiazepines Scrn Ur Cocaine Metabolite U Marijuana (THC) Screen COVID-19 Eval Order Covid19 Done at [facility] COVID-19 PCR NEGATIVE Hepatitis A IgM Ab Hep Bs Antigen Hep B Core IgM Ab Hepatitis C Antibody 05/09/20 05/09/20 05/09/20 21:51 22:31 23:51 Sodium Potassium Chloride Carbon Dioxide Anion Gap BUN Creatinine Est Cr Clr Drug Dosing Est GFR ( Amer) Est GFR (Non-Af Amer) BUN/Creatinine Ratio Glucose POC Glucose 118 H 138 H Calcium Magnesium Total Bilirubin AST ALT Alkaline Phosphatase Ammonia Total Creatine Kinase Total Protein Albumin Globulin Albumin/Globulin Ratio Urine Opiates Screen Neg Ur Methadone, Qual Neg Urine Barbiturates Neg Ur Phencyclidine (PCP) Neg U Amphetamin/Meth Scrn Neg MDMA (Ecstasy) Screen Neg U Benzodiazepines Scrn Neg Ur Cocaine Metabolite Neg U Marijuana (THC) Screen Neg COVID-19 Eval Order COVID-19 PCR Hepatitis A IgM Ab Hep Bs Antigen Hep B Core IgM Ab Hepatitis C Antibody 05/10/20 05/10/20 05/10/20 06:02 07:19 07:50 Sodium 130 L Potassium 4.4 Chloride 99 Carbon Dioxide 23 Anion Gap 8.0 BUN 7 Creatinine 0.44 L Est Cr Clr Drug Dosing 136.3 Est GFR ( Amer) 128.1 Est GFR (Non-Af Amer) 110.5 BUN/Creatinine Ratio 14.8 Glucose 135 H POC Glucose 141 H 138 H Calcium 8.7 Magnesium 2.0 Total Bilirubin 0.6 AST 108 H ALT 58 Alkaline Phosphatase 131 H Ammonia Total Creatine Kinase Total Protein 6.4 Albumin 2.4 L Globulin 4.0 Albumin/Globulin Ratio 0.6 L Urine Opiates Screen Ur Methadone, Qual Urine Barbiturates Ur Phencyclidine (PCP) U Amphetamin/Meth Scrn MDMA (Ecstasy) Screen U Benzodiazepines Scrn Ur Cocaine Metabolite U Marijuana (THC) Screen COVID-19 Eval Order COVID-19 PCR Hepatitis A IgM Ab Hep Bs Antigen Hep B Core IgM Ab Hepatitis C Antibody 05/10/20 05/10/20 11:30 16:34 Sodium Potassium Chloride Carbon Dioxide Anion Gap BUN Creatinine Est Cr Clr Drug Dosing Est GFR ( Amer) Est GFR (Non-Af Amer) BUN/Creatinine Ratio Glucose POC Glucose 225 H 254 H Calcium Magnesium Total Bilirubin AST ALT Alkaline Phosphatase Ammonia Total Creatine Kinase Total Protein Albumin Globulin Albumin/Globulin Ratio Urine Opiates Screen Ur Methadone, Qual Urine Barbiturates Ur Phencyclidine (PCP) U Amphetamin/Meth Scrn MDMA (Ecstasy) Screen U Benzodiazepines Scrn Ur Cocaine Metabolite U Marijuana (THC) Screen COVID-19 Eval Order COVID-19 PCR Hepatitis A IgM Ab Hep Bs Antigen Hep B Core IgM Ab Hepatitis C Antibody PG Care Time/CCT Total # of Minutes Spent Total Time Spent with Patient: Total time spent is greater than 50% in coordination of care (as documented) at patient's floor/unit and/or counseling patient: Coding Level of Care Code 74402 Subseq Hosp Care Lvl 3 Diagnoses Alcohol intoxication F10.929 Complication of substance-induced condition: with unspecified complication Alcohol abuse F10.10 Toxic encephalopathy G92 Hypomagnesemia E83.42 Acute hyponatremia E87.1 Acute head injury S09.90XA Encounter type: initial encounter Acute dehydration E86.0 Avulsed toenail S91.209A Encounter type: initial encounter Left leg swelling M79.89 Peripheral neuropathy G62.9 Peripheral neuropathy type: polyneuropathy, unspecified Type 2 diabetes mellitus E11.9 Diabetes mellitus group home insulin use: without long term acute care registered nurse use Diabetes mellitus complication status: without complication DVT prophylaxis Z29.[address] of the chest R93.89 Homeless Z59.0 Tobacco use Z72.0 (1) Alcohol intoxication Complication of substance-induced condition: with unspecified complication Qualified Code(s): F10.929 - Alcohol use, unspecified with intoxication, unspecified (2) Acute head injury Encounter type: initial encounter Qualified Code(s): S09.90XA - Unspecified injury of head, initial encounter (3) Avulsed toenail Encounter type: initial encounter Qualified Code(s): S91.209A - Unspecified open wound of unspecified toe(s) with damage to nail, initial encounter (4) Peripheral neuropathy Peripheral neuropathy type: polyneuropathy, unspecified Qualified Code(s): G62.9 - Polyneuropathy, unspecified (5) Type 2 diabetes mellitus Diabetes mellitus group home insulin use: without group home use Diabetes mellitus complication status: without complication Qualified Code(s): E11.9 - Type 2 diabetes mellitus without complications
[2020-05-10] MEDS ORDERED: Nursing to Pharmacy Communication SCH (21:00)
[2020-05-11] MEDS ORDERED: ALUMINUM/MAGNESIUM SUSP 30 ML UDC PO PRN (01:55)
[2020-05-11 04:51] LABS: Hepatitis A Antibody IgM NON-REACTIVE (NON-REACTIVE); Hepatitis B Core Antibody IgM NON-REACTIVE (NON-REACTIVE)
[2020-05-11] MEDS: HEPARIN SOD 5,000 UNIT/0.5 ML VIAL SQ SCH (04:59)
[2020-05-11] MEDS: GABAPENTIN 400 MG CAP PO SCH (05:00)
[2020-05-11 08:03] LABS: Albumin Globulin Ratio 0.6 (0.9-2); Albumin Level 2.3 gm/dl (3.4-5.0); BUN Creatinine Ratio 12.1 (10-20); Bilirubin,Total 0.7 mg/dl (0.2-1); Calcium 8.5 mg/dl (8.5-10.1); Creatinine Clr Calc Pharmacy 101.6 ml/min; Est GFR (African American) 116.3; Est GFR (Non-African American) 100.3; Globulin 3.8 gm/dl (2.5-4.0); Total Protein 6.1 gm/dl (6.4-8.2)
[2020-05-11 08:29] LABS: Beta-Hydroxybutyrate 1.01 mg/dl (0.2-2.81)
[2020-05-11] MEDS ORDERED: METOPROLOL TARTRATE 25 MG TAB PO SCH (09:00)
[2020-05-11] MEDS ORDERED: INSULIN GLARGINE SOLOSTAR 100 UNITS/ML 3 ML PEN SC SCH (09:00)
[2020-05-11] MEDS: CEROVITE ADV FORMULA TAB PO SCH (09:12)
[2020-05-11] MEDS: THIAMINE HCL 200 MG in SODIUM CHLORIDE 0.9% 50 ML IV SCH (09:12)
[2020-05-11] MEDS: MAGNESIUM OXIDE 400 MG TAB PO SCH (09:12)
[2020-05-11] MEDS: FOLIC ACID 1 MG in SYRINGE 9.8 ML IV SCH (09:13)
[2020-05-11] MEDS: INSULIN ASPART 100 UNITS/ML 3 ML PEN SC SCH ×2 (09:29→13:15)
--- NOTE | 2020-05-11 13:54 | Discharge Summary ---
Date of Service date of admission - May 09, 2020 date of discharge - May 11, 2020 Admission HPI Per Admitting Provider 59yo female with long-standing alcoholism, T2DM, and noncompliance who presents via EMS to [facility] after being found down on the ground in a parking lot near her t ruck. The exact details are uncertain as to what happened as the events leading up to being found were not witnessed. There are reports she was in a [employer] parking lot. Patient told EMS and intake personnel at [facility] that she didn't fall or pass out but she couldn't tell anyone exactly what occurred. Of note- patient had a brief hospitalization in March 2020 for cellulitis and bacteremia. She left AMA from that hospital stay. She had a 2nd hospitalization from 04/27 to 04/30 for deconditioning and concern for developing alcohol withdrawal. Apparently she never had significant withdrawal symptoms during that stay. COVID testing on 04/27 was negative. The patient's story was confusing to follow and shifted from topic to topic. She often laughed inappropriately during the encounter. She stated her last drink was 2.5 weeks ago. She denied tobacco use (although EMR reports she is a smoker). She denied drug use saying "no, no, no." She initially told me that "she has been in the hospital the last 4 days" then, a short while later, she told me she was staying with her boyfriend in [place]. She then began to talk about her dogs and "going to see them." I asked her again where she had been staying and finally she said she was living out of her truck. She could not tell me where she was getting her food & meals. She simply said "I get food stamps." She has a son in [place] but when asked about him she quickly changed the subject. Her left great toenail came off at some point today. She could not tell me how it happened. She told me the year was 2009 but knew it was April. Principal Diagnosis 1. severe alcohol intoxication 2. alcoholism 3. hyponatremia Discharge Exam Constitutional + frail appearing; no acute distress and no altered mental status Eyes + anicteric sclerae and PERRL ENMT external ear and nose normal, oropharynx normal Respiratory no respiratory distress Auscultation: + wheezes (minimal wheeze end-exp) Cardiovascular Rate/Rhythm: regular rate and regular rhythm Heart Sounds: normal S1, normal S2 and + murmur (1/6 ZACHARY LLSB) Vessels: posterior tibial pulses present and dorsalis pedis pulses present; no JVD Extremities: no edema Gastrointestinal (Abdomen) normal bowel sounds, soft, nontender, no hepatosplenomegaly Musculoskeletal Extremities: + clubbing Skin + ulcer (knees) and + excoriations (legs) left great toenail has been removed/avulsed Neurologic Motor/Sensory: + tremor (arms - minimal ) Psychiatric Orientation: alert and oriented x 3 Discharge Data Allergies Allergy/AdvReac Type Severity Reaction Status Date / Time No Known Allergies Allergy Verified 04/27/20 21:38 Consultations Consult Case Management - Discharge Planning PT, OT Ordered Studies 05/09/20 13:17 CT head/brain wo con Stat IMPRESSION: 1. Left parietal scalp edema. 2. No acute intracranial findings. 05/09/20 18:04 US venous doppler LE LT Urgent -- no DVT left leg. Chest x-ray - IMPRESSION: 1. Stable mild residual thickening/edema. No evidence of focal pulmonary consolidation COVID-19 PCR - NEGATIVE Hospital Course (1) Alcohol intoxication: Patient's blood alcohol level was markedly elevated (>300) at time of admission. Records indicated she typically consumes up to a pint of liquor/day. Intoxication resolved with IV fluids, supportive care, and time. Mental status returned back to baseline after intoxication resolved. (2) Alcohol abuse: Long-standing. HEAVY, with 1 pint of liquor/day per records. Multiple prior admissions for alcohol-related issues. Acute hepatitis profile (HepA,B,C) all negative. Placed on gabapentin protocol and ativan prn but did not appear to show any withdrawal symptoms during her 48-hour stay. Received high-dose IV thiamine, folic acid, and MVI during the visit. Patient was counseled about the dangers of ongoing alcohol abuse including physical & mental morbidity/disability, risk of DWI/imprisonment, injury, etc. Patient was "not ready" to initiate any inpatient or outpatient rehab for her alcohol abuse. She was counseled about 30-day inpatient programs but showed no interest. In light of her homeless status she was most focused on this aspect of her life, and stated she would address the alcoholism after securing halfway. Social work was heavily involved in her care during the hospitalization. They provided her numerous resources for her alcohol abuse, lack of housing, etc. Unfortunately the patient did not show any willingness to heed any advice or follow through with recommendations. (3) Toxic encephalopathy: 2nd to alcohol. Resolved. CT head without ICH, stroke, or fracture. Received high-dose IV thiamine. Mental status returned to baseline after etoh intoxication resolved. No symptoms/signs of Wernicke's encephalopathy. (4) Hypomagnesemia: 2nd to alcoholism and poor oral intake. repleted and resolved. (5) Acute hyponatremia: 2nd volume depletion and hyperglycemia. 125 upon admission, improving to 130 at discharge. (6) Acute head injury: Had mild left-sided parietal scalp swelling c/w head injury. The head injury was from a prior fall that preceded her last hospital stay. CT head otherwise wnl. (7) Acute dehydration: resolved with IVF had been eating/drinking poorly leading up to this admission (8) Avulsed toenail: Left great toe. Adaptic covered w/ kerlex. Occurred in the setting of a fall. She should continue the adaptic with kerlex; change every other day until the nailbed heals. (9) Left leg swelling: doppler neg for DVT (10) Peripheral neuropathy: Suspect T2DM and/or heavy alcoholism contributing. Previous B12 level wnl. The neuropathy will set her up for gait disturbance and falls. PT, OT consults ordered -- cleared for discharge. (11) Type 2 diabetes mellitus: In light of her severe alcoholism insulin and metformin - although the ideal meds for her T2DM -- could lead to issues (hypoglycemia, lactic acidosis [metformin], etc). Did not prescribe either at discharge. Amaryl 1mg daily with breakfast advised. Hypoglycemia is possible with this medication but felt to be somewhat safer than the aforementioned meds. (12) Abnormal CT of the chest: 04/27/20 CT chest with groundglass opacities b/l. COVID-19 PCR at that time negative. Repeat COVID-19 test 05/09/20 NEGATIVE. No pulmonary symptoms during the stay. (13) Homeless: Social work was heavily involved in the patient's hospitalization. Referral was made to adult protective services due to homelessness status, etc. List of homeless shelters and resources given to patient. Unfortunately she had no interest in alcohol rehab. She will need close outpatient follow-up to ensure she starts to thrive again. We noted that her PCP was located in [place], [place]. Thus, we will attempt to secure her a more local family physician. (14) Tobacco use: Encouraged to quit. Total Time Total Time Spent Total Time Spent (In Minutes): 45 Total Time Includes: Examination of the Patient, Discharge Planning, Medication Reconciliation and Communication With Other Providers Discharge Plan Discharge Items Patient Disposition: Home - Self-Care Reason For Visit: ALCOHOL INTOXICATION Discharge Diagnosis: 1. SEVERE alcohol intoxication - resolved 2. SEVERE confusion due to alcohol intoxication - resolved 3. Recent falls 4. uncontrolled diabetes 5. high blood pressure 6. alcohol abuse Activity: Resume your previous activity Driving/Machine Use: please no driving Non-emergency contact: Primary Care Provider Call non-emergency contact if: you have any medication questions and you have a fever Follow-up/Referrals: PCP,NO [Physician] - Diet: Carb Consistent or DM2 Addtl Attending Provider Instructions: You were treated for the problems listed above in "discharge diagnoses." Please note the following changes to your medications to make it as simple as possible - 1. STOP the lantus insulin and STOP the metformin. 2. TAKE glimepiride 1mg every day WITH BREAKFAST. This is your new diabetes pill. 3. TAKE metoprolol xl 25mg every morning. This is a long-acting, sustained release medication for your blood pressure. If you have short-acting metoprolol left over from the previous hospital stay please throw that away. 4. CONTINUE the once-weekly vitamin D capsule (ergocalciferol) -- again take just once a week -- until the bottle runs out. This was prescribed during your previous hospital stay. We had a good conversation today about a 30-day inpatient alcohol rehab program. If you change your mind please let your family doctor know you are interested in this and they can assist you in getting into this type of program. Our case technician gave you various resources for housing/sheltering - please strongly consider one of these options, especially with winter coming. Until you maintain sobriety (no further alcohol) do NOT drive your vehicle. You are risking your life behind the wheel and other drivers on the road. Please be safe and stay healthy! Pending Studies at Discharge: No Stand-Alone Forms: [employer], Smoking Cessation Medications and DC Order Prescriptions: New glimepiride [Amaryl] 1 mg tablet 1 mg PO QAM Qty: 30 RF: 1 metoprolol succinate 25 mg tablet extended release 24 hr 25 mg PO DAILY Qty: 30 RF: 1 Continued thiamine mononitrate (vit B1) 100 mg tablet 100 mg PO DAILY Qty: 30 RF: 0 folic acid 1 mg tablet 1 mg PO DAILY Qty: 30 RF: 0 magnesium 250 mg tablet 250 mg PO DAILY Qty: 30 RF: 0 ergocalciferol (vitamin D2) [Vitamin D2] 1,250 mcg (50,000 unit) capsule 50,000 unit PO .Weekly Qty: 7 RF: 0 lisinopril 10 mg Tablet 10 mg PO QAM 30 Days Qty: 30 RF: 0 Discontinued cholecalciferol (vitamin D3) [Vitamin D3] 50 mcg (2,000 unit) capsule 2,000 unit PO DAILY Qty: 30 RF: 0 metformin [Glucophage] 500 mg Tablet 500 mg PO BIDM 30 Days Qty: 60 RF: 0 Lantus U-100 Insulin 100 unit/mL solution 0 unit SUBCUT DIRECTED RF: 0 metoprolol tartrate 25 mg tablet 25 mg PO DIRECTED RF: 0 Discharge Orders: Discharge Order (Routine); Ordered 05/11/20 Ordered By: David Shabazz Admission Data Admit Date/Time: 05/09/20 18:04 Attending Provider: David Shabazz Admit Provider: David Shabazz Primary Care Provider: Allie Horn Other Providers: David Real Other Interventions: Discharge Summary Assessment (RN) Last Done: 05/11/20 13:05 Coding Level of Care Code D/C Day Management >30 mins Diagnoses Alcohol intoxication F10.929 Complication of substance-induced condition: with unspecified complication Alcohol abuse F10.10 Toxic encephalopathy G92 Hypomagnesemia E83.42 Acute hyponatremia E87.1 Acute head injury S09.90XA Encounter type: initial encounter Acute dehydration E86.0 Avulsed toenail S91.209A Encounter type: initial encounter Left leg swelling M79.89 Peripheral neuropathy G62.9 Peripheral neuropathy type: polyneuropathy, unspecified Type 2 diabetes mellitus E11.9 Diabetes mellitus complication status: without complication Diabetes mellitus terminal operator insulin use: without terminal operator use Abnormal CT of the chest R93.89 Homeless Z59.0 Tobacco use Z72.0
[2020-05-11] MEDS ORDERED: INSULIN ASPART 100 UNITS/ML 3 ML PEN SC SCH (21:10)
[2020-05-12] MEDS ORDERED: GABAPENTIN 400 MG CAP PO SCH
[2020-05-13] MEDS ORDERED: GABAPENTIN 400 MG CAP PO SCH (12:00)
== END 2020-05-11 14:00 | disposition home or self-care (01) | DRG 896 ==
LOC: ED 12:51 → 2W 18:04

== ENCOUNTER 2020-06-14 13:11 | Inpatient (IN) ==
[2020-06-14] MEDS ORDERED: cefTRIAXone SODIUM 2,000 MG/70 ML BAG IV STA (13:26)
[2020-06-14] MEDS ORDERED: MULTI-VITAMIN INFUSION 10 ML, THIAMINE HCL 100 MG, FOLIC ACID 1 MG in SODIUM CHLORIDE 0... IV ONE (13:26)
--- NOTE | 2020-06-14 14:03 | XRay Report ---
XR chest 1V portable CLINICAL HISTORY: Inability to walk. COMPARISON STUDY: Chest radiograph May 09, 2020. FINDINGS: Lung volumes are at the lower limits of normal with slight elevation of the right hemidiaph ragm. Lungs are clear. There is no pneumothorax or pleural effusion. Cardiac size is normal. Mediasti nal contours are normal. There is no evidence for pulmonary edema. IMPRESSION: No acute cardiopulmonary findings. ACT 112: Negative or not required by law. Electronically signed by: Byron Hannah M.D. 06/14/2020 2:02 PM
[2020-06-14 14:04] LABS: Basophils # (auto) 0.01 K/uL (0-0.2); Basophils % (auto) 0.1 %; Eosinophils # (auto) 0.01 K/uL (0-0.5); Eosinophils % (auto) 0.1 %; Hematocrit (blood only) 29.5 % (37-47); Hemoglobin 9.9 g/dL (12.0-16.0); Immature Granulocytes # (auto) 0.07 K/uL (0.00-0.02); Immature Granulocytes % (auto) 0.5 %; Lymphocytes # (auto) 1.35 K/uL (1.2-3.4); Lymphocytes % (auto) 9.8 %; Mean Corpuscular Hemoglobin 33.1 pg (25-34); Mean Corpuscular Hgb Conc 33.6 g/dL (32-36); Mean Corpuscular Volume 98.7 fL (80-100); Monocytes # (auto) 1.41 K/uL (0.11-0.59); Monocytes % (auto) 10.2 %; Neutrophils # (auto) 10.94 K/uL (1.4-6.5); Neutrophils % (auto) 79.3 %; Platelet Count 229 K/uL (130-400); RDW Coefficient of Variation 14.6 % (11.5-14.5); RDW Standard Deviation 52.2 fL (36.4-46.3); Red Blood Count 2.99 M/uL (4.2-5.4); White Blood Count 13.79 K/uL (4.8-10.8)
[2020-06-14 14:17] LABS: iSTAT Creatinine 0.4 mg/dl (0.6-1.3); iSTAT Hemoglobin 10.9 g/dl (12.0-16.0); iSTAT Ionized Calcium 1.09 mmol/l (1.12-1.32); iSTAT Potassium 3.7 mmol/L (3.3-5.0)
[2020-06-14 14:21] LABS: INR 1.6 (0.9-1.1); Partial Thromboplastin Time 26.9 Seconds (21.0-31.0); Prothrombin Time 16.1 Seconds (9.0-12.0)
[2020-06-14 14:35] LABS: Alanine Aminotransferase 47 U/L (12-78); Albumin Globulin Ratio 0.6 (0.9-2); Albumin Level 2.9 gm/dl (3.4-5.0); Alkaline Phosphatase 208 U/L (45-117); Aspartate Aminotransferase 149 U/L (15-37); BUN Creatinine Ratio 16.3 (10-20); Bilirubin,Total 1.4 mg/dl (0.2-1); Blood Urea Nitrogen 12 mg/dl (7-18); Calcium 8.8 mg/dl (8.5-10.1); Carbon Dioxide 33 mmol/L (21-32); Chloride 91 mmol/L (98-107); Creatinine Clr Calc Pharmacy 78.8 ml/min; Est GFR (African American) 106.2; Est GFR (Non-African American) 91.7; Glucose 330 mg/dl (70-99); Magnesium 1.4 mg/dl (1.8-2.4); Potassium 3.6 mmol/L (3.5-5.1); Sodium 129 mmol/L (136-145); Total Protein 7.9 gm/dl (6.4-8.2); Troponin I < 0.015 ng/ml (0-0.045)
[2020-06-14] MEDS ORDERED: SODIUM CHLORIDE 0.9% 1000ML 500 ML IV ONE (14:54)
[2020-06-14] MEDS ORDERED: DAPTOmycin 250 MG in SYRINGE 0 ML IV ONE (14:56)
[2020-06-14] MEDS ORDERED: NovoLIN-R INSULIN PER UNIT CHARGE IV STA (14:56)
[2020-06-14] MEDS ORDERED: OPTIRAY 320 125ml IV ONE (15:24)
--- NOTE | 2020-06-14 15:45 | CT Scan Report ---
UNENHANCED CT OF THE BRAIN; CT ANGIOGRAM OF THE BRAIN; CT ANGIOGRAM OF THE NECK CLINICAL HISTORY: Strokelike symptoms. Weakness. COMPARISON STUDY: CT of the brain dated 05/09/2020. TECHNIQUE: Unenhanced axial CT scan of the brain is performed. Subsequently, following the IV adminis tration of 120 of [address] 320, CT angiogram of the head and neck was performed from the aortic arch t o the vertex. Images are reviewed in the axial, sagittal, and coronal planes. 3-D MIPS images are cre ated and assessed. IV contrast was administered without complication. All measurements were calculate d based on NASCET criteria. A dose lowering technique was utilized adhering to the principles of ALA RA. CT DOSE: 1062.70 mGy.cm FINDINGS: Brain parenchyma: A chronic lacunar infarct is suggested in the rey. There is no hemorrhage, mass ef fect, or evidence of acute territorial ischemia by CT criteria. There is no evidence of enhancing mas s lesion on the angiogram phase images. The ventricles, sulci, and cisterns are normal in configurati on. Dasilva-white matter differentiation is preserved. No extra-axial fluid collection is seen. Thoracic aorta: Visualized portions of the thoracic aorta are normal in caliber. The aortic arch demo nstrates standard 3-vessel anatomy. Right carotid arterial system: The right common carotid artery is widely patent. Atherosclerotic plaq ue in the carotid bulb causes less than 50% luminal narrowing at the origin of the right internal car otid artery. The remainder of the right internal carotid artery is widely patent, as is the right ext ernal carotid artery. Left carotid arterial system: The left common carotid artery is widely patent. Atherosclerotic plaque in the carotid bulb causes less than 50% luminal narrowing at the origin of the left internal caroti d artery. There is also moderate stenosis at the origin of the left external carotid artery. The annabel marquez of the left internal carotid artery is widely patent. Vertebral arteries: The vertebral arteries are patent bilaterally. The right vertebral artery is abdulaziz nant. The left vertebral artery terminates as the PICA. Subclavian arteries: Widely patent bilaterally. Intracranial vasculature: There is atherosclerotic calcification of the cavernous carotid and vertebr al arteries. The right A1 segment is diminutive. There is origin of the right posterior cerebra l artery. There is mild luminal narrowing an atherosclerotic irregularity within the cavernous caroti d arteries. The internal carotid arteries are otherwise widely patent at the skull base, as are the a nterior and middle cerebral arteries bilaterally. The vertebrobasilar system and posterior cerebral a rteries are widely patent. The right vertebral artery is dominant. There is no aneurysm, high-grade s tenosis, or focal vessel cut off seen throughout the intracranial circulation. Jugular veins: Patent bilaterally. Dural sinuses: Patent. Lung apices: Partially visualized upper lobe lung parenchyma appears clear. Soft tissues: The visualized pharyngeal soft tissues are normal in appearance noting angiographic pha se technique. The oropharyngeal airway appears widely patent. The salivary and thyroid glands are nor mal in appearance. No cervical lymphadenopathy is seen. Skeletal structures: The skeletal structures are osteopenic. The calvarium appears intact. The cervic al spine is within normal limits. Orbits: The bony orbits are intact. Orbital contents are normal as imaged. Sinuses and mastoids: The paranasal sinuses are clear. The mastoid air cells are well pneumatized. IMPRESSION: 1. There is no hemorrhage, mass effect, or evidence of acute territorial ischemia by CT criteria. 2. Unremarkable CT angiogram of the brain. 3. Atherosclerotic plaque causes less than 50% luminal narrowing at the origin of both internal carot id arteries. 4. The left vertebral artery is diminutive and terminates as the PICA. ACT 112: Negative or not required by law. Electronically signed by: Leo Fields M.D. 06/14/2020 3:43 PM
--- NOTE | 2020-06-14 16:23 | XRay Report ---
LEFT FIRST TOE 3 VIEWS CLINICAL HISTORY: Left toe pain. FINDINGS: 3 views of the left first toe are obtained. No prior studies are available for comparison a t the time of dictation. The skeletal structures are osteopenic. No fracture is seen. Mild osteoarthr itic change is seen at the first metatarsophalangeal joint. Spurs arise from the base of the first di stal phalanx. Mild soft tissue swelling is suggested in the first toe. No radiodense foreign body is seen. IMPRESSION: 1. Mild soft tissue swelling with no acute bony abnormality identified. 2. Large spurs arise from the base of the first distal phalanx. Electronically signed by: Leo Fields M.D. 06/14/2020 4:21 PM
--- NOTE | 2020-06-14 16:31 | Emergency Department Note ---
History of Present Illness General Chief complaint: Foot Injury/Pain Stated complaint: TOE PAIN Time Seen by Provider: 06/14/20 13:14 Source: patient, family (sister), EMS, RN notes reviewed and old records reviewed Mode of arrival: EMS History of Present Illness Maximum Pain Intensity: 8 Refusing to take medications is depressed, Self medicating by drinking. this is a 59-year-old female sent in by her sister over concerns of this patient has not taken care of herself. Per the sister the patient is homeless and has been living out of her truck. The patient sister is very concerned that the patient has not been taking care of herself and has not been taking any of her medications. The patient herself reports that she cannot walk due to weakness bilaterally in her legs. She denies any pain or any fevers. She has not taken anything for the pain. She describes the pain as a burning sensation in her toe. The pain is made worse by walking however immobilization makes the pain better Home Medications Medication Instructions Recorded Confirmed Type metoprolol succinate 25 mg PO DAILY #30 tab 05/11/20 06/14/20 Rx insulin glargine [Lantus U-100 20 unit SUBCUT HS 05/17/20 06/14/20 History Insulin] metformin 1,000 mg PO BIDM 05/17/20 06/14/20 History cholecalciferol (vitamin D3) 2,000 unit PO DAILY 06/14/20 06/14/20 History [Vitamin D3] glimepiride 2 mg PO QAM 06/14/20 06/14/20 History lisinopril 10 mg PO DAILY 06/14/20 06/14/20 History loperamide See Rx Instructions .ROUTE 06/14/20 06/14/20 History .COMPLEX PRN MDD 16 MG/24 HOURS Allergies Allergy/AdvReac Type Severity Reaction Status Date / Time No Known Allergies Allergy Verified 06/14/20 15:58 Past Med/Surg History Medical History Acute head injury Acute hyponatremia Avulsed toenail Diabetes mellitus type 2, uncontrolled Diabetic neuropathy Hypertension Hypokalemia Hypomagnesemia Tinea pedis Surgical History No pertinent past surgical history Family History Father Dementia in his 80s Mother , in her 70s Diabetes Social History Smoking Status: Unknown if ever smoked Tobacco Type: Cigarettes Cigarettes Per Day: 1/2 ppd; Second Hand Exposure: Yes; Hx Alcohol Use: Yes Alcohol type: hard liquor Alcohol Intake Frequency Comment: daily, at least 3 shots Hx Substance Use: No Preferred Language: Trinidadian Communication Ability: Effective Manager Erp Required: No Beliefs That Will Affect Care: None marital status: Single Current Living Situation: Other Current Living Situation Comment: living in her truck, stays with sister sometimes current occupational status: disabled How many Children do You have: 1 How many Children do You have Comment: son Feels Safe at Home: Yes Assistive Devices: Walker Review of Systems A total of 10 systems reviewed and were otherwise negative Physical Exam Vital Signs Vital Signs - 24 hr 06/14/20 13:11 06/14/20 14:00 06/14/20 14:31 Temperature 37.1 C Temperature Source Oral Pulse Rate 74 82 85 Pulse Rate from SpO2 Sensor 83 82 Pulse Rhythm Regular Pulse Strength Normal Respiratory Rate 24 19 19 Respiratory Effort / Characteristics Non-Labored Respiratory Depth Normal Respiratory Pattern Regular Blood Pressure 165/76 H 188/74 H 178/82 H Blood Pressure Mean 105 114 112 Blood Pressure Position Lying Pulse Oximetry 98 100 100 Oxygen Delivery Method Room Air Sepsis Recent Fever Within 48 Hours No Sepsis New/Unexplained Change in Mental Status N/A Sepsis Action Taken by Nursing No Action Required 06/14/20 15:00 06/14/20 15:30 Temperature Temperature Source Pulse Rate 75 88 Pulse Rate from SpO2 Sensor 75 88 Pulse Rhythm Pulse Strength Respiratory Rate 18 16 Respiratory Effort / Characteristics Respiratory Depth Respiratory Pattern Blood Pressure 167/61 H Blood Pressure Mean 90 Blood Pressure Position Pulse Oximetry 100 98 Oxygen Delivery Method Sepsis Recent Fever Within 48 Hours Sepsis New/Unexplained Change in Mental Status Sepsis Action Taken by Nursing VITAL SIGNS - Vital signs and nursing notes were reviewed. GENERAL - 59-year-old female appearing stated age who is in no acute distress. Communicates well with provider and answers questions appropriately. SKIN - ulcer left toe HEAD - NC/AT. EYES - PERRL with EOMI bilaterally. Sclera anicteric. Palpebral conjunctiva pink and moist with no injection noted. EARS - No deformities of external structures noted on gross examination bilaterally. No pain elicited with palpation of the tragus bilaterally. External auditory canals without discharge or otorrhea. Tympanic membranes pearly dasilva without retraction or bulging. No fluid or purulent material visualized behind the TM. Handle of malleus, umbo, cone of light, pars tensa/flaccid all easily visualized. NOSE - Midline and without cyanosis. No epistaxis or purulent drainage noted. Septum midline without deviation or septal hematoma noted. MOUTH/OROPHARYNX - Without perioral cyanosis. Buccal mucosa pink and moist and without leukoplakia. Tongue midline with equal elevation of palate bilaterally. No tonsillar hypertrophy, erythema, or exudates noted. dentition noted. NECK - Neck with FROM. Supple to palpation. lymphadenopathy noted. No nuchal rigidity. LUNGS - Chest wall symmetric without accessory muscle use, intercostals retractions, or central cyanosis. Normal vesicular breath sounds CTA B/L. No wheezes, rales, or rhonchi appreciated. CARDIAC - RRR with S1/S2. No murmur, rubs, or gallops appreciated. ABDOMEN - Abdominal contour without pulsations or visible masses. BS normoactive all four quadrants. No tenderness, palpable masses, hepatosplenomegaly, or ascites noted. EXTREMITIES - No clubbing or peripheral cyanosis. No pretibial edema present. +3/5 radial, posterior tibial, and dorsalis pedis pulses palpated throughout. +5/5 strength noted in UE/LE bilaterally. NEUROLOGIC - Cranial nerves II through XII grossly intact. Sensory intact to light touch throughout. Patellar reflexes +2/4. PSYCH - A&Ox3 and cooperates fully with examiner. Pt is very pleasant and interacts well with examiner. Course Administered Medications Docusate Sodium (Docusate Sodium 100 Mg Cap) 100 mg PO BID [facility] Stop: 07/17/20 20:59 Last Admin: 06/20/20 08:29 Dose: Not Given Documented by: [id number] Admin: 06/19/20 21:26 Dose: Not Given Documented by: [id number] Admin: 06/19/20 08:06 Dose: 100 mg Documented by: [id number] Admin: 06/18/20 20:44 Dose: Not Given Documented by: [id number] Admin: 06/18/20 08:21 Dose: 100 mg Documented by: [id number] Admin: 06/17/20 22:12 Dose: 100 mg Documented by: [id number] Ferrous Gluconate (Ferrous Gluconate 324 Mg Tab) 324 mg PO BIDM [facility] Stop: 07/17/20 16:59 Last Admin: 06/20/20 08:32 Dose: 324 mg Documented by: [id number] Admin: 06/19/20 16:49 Dose: 324 mg Documented by: [id number] Admin: 06/19/20 08:09 Dose: 324 mg Documented by: [id number] Admin: 06/18/20 17:27 Dose: 324 mg Documented by: [id number] Admin: 06/18/20 08:20 Dose: 324 mg Documented by: [id number] Admin: 06/17/20 16:51 Dose: 324 mg Documented by: [id number] Heparin Sodium (Porcine) (Heparin Sod 5,000 Unit/0.5 Ml Vial) 5,000 units SQ Q12 [facility] Stop: 07/14/20 20:59 Last Admin: 06/15/20 08:29 Dose: 5,000 units Documented by: [id number] Admin: 06/14/20 23:46 Dose: 5,000 units Documented by: [id number] Lorazepam (Ativan) 1 mg in 2 mls @ 2 mls/min IV ONE PRN; Protocol PRN Reason: EtoH Withdrawal AWSS 6-10 Stop: 07/14/20 20:26 Last Admin: 06/14/20 21:30 Dose: 2 mls/min Documented by: [id number] Folic Acid 1 mg/ Syringe 10 mls @ 5 mls/min IV QAM [facility] Stop: 07/14/20 20:59 Last Admin: 06/20/20 08:28 Dose: 5 mls/min Documented by: [id number] Admin: 06/19/20 08:06 Dose: 5 mls/min Documented by: [id number] Admin: 06/18/20 08:20 Dose: 5 mls/min Documented by: [id number] Admin: 06/17/20 08:37 Dose: 5 mls/min Documented by: [id number] Admin: 06/16/20 08:14 Dose: 5 mls/min Documented by: [id number] Admin: 06/15/20 08:28 Dose: 5 mls/min Documented by: [id number] Admin: 06/14/20 23:34 Dose: 5 mls/min Documented by: [id number] Piperacillin Sod/Tazobactam (Sod 3.375 gm/ Dextrose) 115 mls @ 28.75 mls/hr IV Q8H [facility]; Protocol Stop: 06/22/20 02:59 Last Infusion: 06/20/20 07:08 Dose: 0 mls/hr Documented by: [id number] Admin: 06/20/20 03:16 Dose: 28.8 mls/hr Documented by: [id number] Infusion: 06/19/20 23:55 Dose: 0 mls/hr Documented by: [id number] Admin: 06/19/20 19:32 Dose: 28.8 mls/hr Documented by: [id number] Infusion: 06/19/20 15:10 Dose: 0 mls/hr Documented by: [id number] Admin: 06/19/20 11:05 Dose: 28.8 mls/hr Documented by: [id number] Infusion: 06/19/20 07:50 Dose: 0 mls/hr Documented by: [id number] Admin: 06/19/20 03:46 Dose: 28.8 mls/hr Documented by: [id number] Infusion: 06/18/20 23:37 Dose: 0 mls/hr Documented by: [id number] Admin: 06/18/20 20:00 Dose: 28.8 mls/hr Documented by: [id number] Infusion: 06/18/20 16:07 Dose: 0 mls/hr Documented by: [id number] Admin: 06/18/20 12:03 Dose: 28.8 mls/hr Documented by: [id number] Infusion: 06/18/20 07:21 Dose: 0 mls/hr Documented by: [id number] Admin: 06/18/20 03:14 Dose: 28.8 mls/hr Documented by: [id number] Infusion: 06/17/20 22:18 Dose: 0 mls/hr Documented by: [id number] Admin: 06/17/20 18:18 Dose: 28.8 mls/hr Documented by: [id number] Admin: 06/17/20 11:24 Dose: Not Given Documented by: [id number] Infusion: 06/17/20 07:30 Dose: 0 mls/hr Documented by: [id number] Admin: 06/17/20 03:24 Dose: 28.8 mls/hr Documented by: [id number] Infusion: 06/16/20 22:05 Dose: 0 mls/hr Documented by: [id number] Admin: 06/16/20 18:01 Dose: 28.8 mls/hr Documented by: [id number] Infusion: 06/16/20 15:29 Dose: 0 mls/hr Documented by: [id number] Admin: 06/16/20 11:36 Dose: 28.8 mls/hr Documented by: [id number] Infusion: 06/16/20 06:18 Dose: 0 mls/hr Documented by: [id number] Admin: 06/16/20 02:21 Dose: 28.8 mls/hr Documented by: [id number] Infusion: 06/15/20 23:32 Dose: 0 mls/hr Documented by: [id number] Admin: 06/15/20 19:27 Dose: 28.8 mls/hr Documented by: [id number] Infusion: 06/15/20 15:52 Dose: 0 mls/hr Documented by: [id number] Infusion: 06/15/20 13:53 Dose: 28.8 mls/hr Documented by: [id number] Infusion: 06/15/20 13:40 Dose: 0 mls/hr Documented by: [id number] Admin: 06/15/20 11:35 Dose: 28.8 mls/hr Documented by: [id number] Infusion: 06/15/20 08:15 Dose: 0 mls/hr Documented by: [id number] Admin: 06/15/20 04:16 Dose: 28.8 mls/hr Documented by: [id number] Thiamine HCl 200 mg/ Sodium (Chloride) 52 mls @ 210 mls/hr IV Q12 [facility] Stop: 07/15/20 20:59 Last Infusion: 06/20/20 08:51 Dose: 0 mls/hr Documented by: [id number] Admin: 06/20/20 08:36 Dose: 210 mls/hr Documented by: [id number] Infusion: 06/19/20 22:44 Dose: 0 mls/hr Documented by: [id number] Admin: 06/19/20 21:29 Dose: 210 mls/hr Documented by: [id number] Infusion: 06/19/20 08:26 Dose: 0 mls/hr Documented by: [id number] Admin: 06/19/20 08:11 Dose: 210 mls/hr Documented by: [id number] Infusion: 06/18/20 21:49 Dose: 0 mls/hr Documented by: [id number] Admin: 06/18/20 21:26 Dose: 200 mls/hr Documented by: [id number] Infusion: 06/18/20 08:54 Dose: 0 mls/hr Documented by: [id number] Admin: 06/18/20 08:34 Dose: 200 mls/hr Documented by: [id number] Infusion: 06/17/20 22:31 Dose: 0 mls/hr Documented by: [id number] Admin: 06/17/20 22:15 Dose: 200 mls/hr Documented by: [id number] Infusion: 06/17/20 08:50 Dose: 0 mls/hr Documented by: [id number] Admin: 06/17/20 08:35 Dose: 210 mls/hr Documented by: [id number] Infusion: 06/16/20 22:04 Dose: 0 mls/hr Documented by: [id number] Admin: 06/16/20 21:41 Dose: 210 mls/hr Documented by: [id number] Infusion: 06/16/20 09:04 Dose: 0 mls/hr Documented by: [id number] Admin: 06/16/20 08:30 Dose: 210 mls/hr Documented by: [id number] Infusion: 06/15/20 20:00 Dose: 0 mls/hr Documented by: [id number] Admin: 06/15/20 19:37 Dose: 210 mls/hr Documented by: [id number] Vancomycin HCl 1,000 mg/ (Sodium Chloride) 270 mls @ 200 mls/hr IV Q12H [facility]; Protocol Stop: 07/31/20 00:00 Last Infusion: 06/20/20 01:48 Dose: 0 mls/hr Documented by: [id number] Admin: 06/20/20 00:25 Dose: 200 mls/hr Documented by: [id number] Infusion: 06/19/20 14:05 Dose: 0 mls/hr Documented by: [id number] Admin: 06/19/20 12:39 Dose: 200 mls/hr Documented by: [id number] Infusion: 06/19/20 01:04 Dose: 0 mls/hr Documented by: [id number] Admin: 06/18/20 23:37 Dose: 200 mls/hr Documented by: [id number] Insulin Aspart (Insulin Aspart 100 Units/Ml 3 Ml Pen) 0 units SC ACHS [facility] Stop: 07/14/20 20:59 Last Admin: 06/20/20 08:24 Dose: 10 units Documented by: [id number] Cosigned by: [id number] Admin: 06/19/20 21:24 Dose: 5 units Documented by: [id number] Cosigned by: [id number] Admin: 06/19/20 16:47 Dose: 11 units Documented by: [id number] Cosigned by: [id number] Admin: 06/19/20 12:39 Dose: 5 units Documented by: [id number] Cosigned by: [id number] Admin: 06/19/20 08:07 Dose: 2 units Documented by: [id number] Cosigned by: [id number] Admin: 06/18/20 21:16 Dose: 1 units Documented by: [id number] Cosigned by: [id number] Admin: 06/18/20 17:26 Dose: 14 units Documented by: [id number] Cosigned by: [id number] Admin: 06/18/20 12:14 Dose: 3 units Documented by: [id number] Cosigned by: [id number] Admin: 06/18/20 08:22 Dose: 10 units Documented by: [id number] Cosigned by: [id number] Admin: 06/17/20 22:13 Dose: 8 units Documented by: [id number] Cosigned by: [id number] Admin: 06/17/20 16:51 Dose: 17 units Documented by: [id number] Cosigned by: [id number] Admin: 06/17/20 13:15 Dose: 9 units Documented by: [id number] Cosigned by: [id number] Admin: 06/17/20 08:31 Dose: 6 units Documented by: [id number] Cosigned by: [id number] Admin: 06/16/20 21:50 Dose: 5 units Documented by: [id number] Cosigned by: [id number] Admin: 06/16/20 17:16 Dose: 20 units Documented by: [id number] Cosigned by: [id number] Admin: 06/16/20 11:50 Dose: 15 units Documented by: [id number] Cosigned by: [id number] Admin: 06/16/20 08:14 Dose: 14 units Documented by: [id number] Cosigned by: [id number] Admin: 06/15/20 21:30 Dose: Not Given Documented by: [id number] Cosigned by: [id number] Admin: 06/15/20 17:21 Dose: 9 units Documented by: [id number] Cosigned by: [id number] Admin: 06/15/20 12:27 Dose: 7 units Documented by: [id number] Cosigned by: [id number] Admin: 06/15/20 08:26 Dose: 3 units Documented by: [id number] Cosigned by: [id number] Admin: 06/14/20 23:43 Dose: 2 units Documented by: [id number] Cosigned by: [id number] Insulin Glargine (Insulin Glargine Solostar 100 Units/Ml 3 Ml Pen) 20 units SC HS [facility] Stop: 07/14/20 20:59 Last Admin: 06/19/20 21:23 Dose: 20 units Documented by: [id number] Cosigned by: [id number] Admin: 06/18/20 21:17 Dose: 20 units Documented by: [id number] Cosigned by: [id number] Admin: 06/17/20 22:13 Dose: 20 units Documented by: [id number] Cosigned by: [id number] Admin: 06/16/20 21:51 Dose: 20 units Documented by: [id number] Cosigned by: [id number] Admin: 06/15/20 21:30 Dose: Not Given Documented by: [id number] Admin: 06/14/20 23:35 Dose: 20 units Documented by: [id number] Cosigned by: [id number] Insulin Glargine (Insulin Glargine Solostar 100 Units/Ml 3 Ml Pen) 10 units SC QAM [facility] Stop: 07/15/20 09:44 Last Admin: 06/20/20 08:25 Dose: 10 units Documented by: [id number] Cosigned by: [id number] Admin: 06/19/20 08:08 Dose: 10 units Documented by: [id number] Cosigned by: [id number] Admin: 06/18/20 08:23 Dose: 10 units Documented by: [id number] Cosigned by: [id number] Admin: 06/17/20 08:30 Dose: Not Given Documented by: [id number] Admin: 06/16/20 08:15 Dose: 10 units Documented by: [id number] Cosigned by: [id number] Admin: 06/15/20 10:36 Dose: 10 units Documented by: [id number] Cosigned by: [id number] Lactobacillus Acidoph/Casei/Rhamnos (Advanced Probiotic 1250 Mg Capsule) 2 cap PO DAILY [facility] Stop: 07/15/20 08:59 Last Admin: 06/20/20 08:28 Dose: 2 cap Documented by: [id number] Admin: 06/19/20 08:07 Dose: 2 cap Documented by: [id number] Admin: 06/18/20 08:20 Dose: 2 cap Documented by: [id number] Admin: 06/17/20 08:32 Dose: Not Given Documented by: [id number] Admin: 06/16/20 08:13 Dose: 2 cap Documented by: [id number] Admin: 06/15/20 10:25 Dose: 2 cap Documented by: [id number] Lactulose (Lactulose Syrup 10 Gm/15 Ml Btl 960 Ml) 15 gm PO DAILY [facility] Stop: 07/15/20 20:14 Last Admin: 06/20/20 08:31 Dose: Not Given Documented by: [id number] Admin: 06/19/20 08:07 Dose: 15 gm Documented by: [id number] Admin: 06/18/20 08:23 Dose: 15 gm Documented by: [id number] Admin: 06/17/20 08:32 Dose: Not Given Documented by: [id number] Admin: 06/16/20 08:13 Dose: 15 gm Documented by: [id number] Admin: 06/15/20 21:00 Dose: 15 gm Documented by: [id number] Lisinopril (Lisinopril 10 Mg Tab) 10 mg PO DAILY [facility] Stop: 07/15/20 08:59 Last Admin: 06/16/20 08:13 Dose: 10 mg Documented by: [id number] Admin: 06/15/20 09:26 Dose: 10 mg Documented by: [id number] Metoprolol Succinate (Metoprolol Succ 25mg Ext Rel Tab) 25 mg PO DAILY [facility] Stop: 07/14/20 20:26 Last Admin: 06/16/20 08:13 Dose: 25 mg Documented by: [id number] Admin: 06/15/20 08:29 Dose: 25 mg Documented by: [id number] Admin: 06/14/20 23:46 Dose: 25 mg Documented by: [id number] Multivitamins (Multivitamin Tab) 1 tab PO QAM [facility] Stop: 07/18/20 08:59 Last Admin: 06/20/20 08:30 Dose: 1 tab Documented by: [id number] Admin: 06/19/20 08:07 Dose: 1 tab Documented by: [id number] Admin: 06/18/20 08:21 Dose: 1 tab Documented by: [id number] Oxycodone HCl (Oxycodone Hcl Ir 5 Mg Tab (Immediate Release)) 5 - 10 mg PO Q4H PRN PRN Reason: Pain or Pre PT Stop: 07/01/20 12:03 Last Admin: 06/19/20 08:11 Dose: 10 mg Documented by: [id number] Admin: 06/19/20 01:34 Dose: 10 mg Documented by: [id number] Admin: 06/18/20 21:14 Dose: 10 mg Documented by: [id number] Admin: 06/18/20 15:38 Dose: 10 mg Documented by: [id number] Admin: 06/18/20 05:51 Dose: 10 mg Documented by: [id number] Admin: 06/17/20 22:16 Dose: 10 mg Documented by: [id number] Potassium Chloride (Potassium Chloride Crtab 20 Meq Tabcr) 20 meq PO TID [facility] Stop: 07/15/20 09:39 Last Admin: 06/20/20 08:29 Dose: 20 meq Documented by: [id number] Admin: 06/19/20 21:23 Dose: 20 meq Documented by: [id number] Admin: 06/19/20 13:30 Dose: 20 meq Documented by: [id number] Admin: 06/19/20 08:06 Dose: 20 meq Documented by: [id number] Admin: 06/18/20 21:15 Dose: 20 meq Documented by: [id number] Admin: 06/18/20 14:16 Dose: 20 meq Documented by: [id number] Admin: 06/18/20 08:20 Dose: 20 meq Documented by: [id number] Admin: 06/17/20 22:12 Dose: 20 meq Documented by: [id number] Admin: 06/17/20 13:17 Dose: 20 meq Documented by: [id number] Admin: 06/17/20 08:32 Dose: Not Given Documented by: [id number] Admin: 06/16/20 21:42 Dose: 20 meq Documented by: [id number] Admin: 06/16/20 13:08 Dose: 20 meq Documented by: [id number] Admin: 06/16/20 08:13 Dose: 20 meq Documented by: [id number] Admin: 06/15/20 19:32 Dose: 20 meq Documented by: [id number] Admin: 06/15/20 14:52 Dose: 20 meq Documented by: [id number] Admin: 06/15/20 10:25 Dose: 20 meq Documented by: [id number] Potassium Phosphate (Pot Phosphate Monobasic W/ Sod Tab) 1 tab PO QID [facility] Stop: 07/19/20 12:59 Last Admin: 06/20/20 08:31 Dose: 1 tab Documented by: [id number] Admin: 06/19/20 21:22 Dose: 1 tab Documented by: [id number] Admin: 06/19/20 16:49 Dose: 1 tab Documented by: [id number] Admin: 06/19/20 13:30 Dose: 1 tab Documented by: [id number] Sennosides (Senna 8.6 Mg Tab) 17.2 mg PO HS [facility] Stop: 07/17/20 20:59 Last Admin: 06/19/20 21:26 Dose: Not Given Documented by: [id number] Admin: 06/18/20 20:44 Dose: Not Given Documented by: [id number] Admin: 06/17/20 22:14 Dose: 17.2 mg Documented by: [id number] Vitamin D (Cholecalciferol 1,000 Units 25 Mcg Tab) 2,000 units PO DAILY [facility] Stop: 07/15/20 08:59 Last Admin: 06/20/20 08:30 Dose: 2,000 units Documented by: [id number] Admin: 06/19/20 08:07 Dose: 2,000 units Documented by: [id number] Admin: 06/18/20 08:20 Dose: 2,000 units Documented by: [id number] Admin: 06/17/20 08:32 Dose: Not Given Documented by: [id number] Admin: 06/16/20 08:12 Dose: 2,000 units Documented by: [id number] Admin: 06/15/20 09:25 Dose: 2,000 units Documented by: [id number] Discontinued Medications Bacitracin (Bacitracin Inj 50,000 Unit Vial) Confirm Administered Dose 50,000 units .ROUTE .STK-MED ONE Stop: 06/17/20 08:26 Last Admin: 06/17/20 11:29 Dose: Not Given Documented by: [id number] Bupivacaine HCl (Bupivacaine 0.5 % 5 Mg/1 Ml Mpf 30ml Vial) Confirm Administered Dose 30 ml .ROUTE .STK-MED ONE Stop: 06/17/20 08:28 Last Admin: 06/17/20 10:51 Dose: 24 ml Documented by: [id number] Clonidine HCl (Clonidine Hcl 0.3 Mg/24 Hr Transderm Sys) 1 patch TD CQWK STA Stop: 06/14/20 16:38 Last Admin: 06/14/20 17:17 Dose: 1 patch Documented by: [id number] Gabapentin (Gabapentin 600 Mg Tab) 1,200 mg PO NOW ONE Stop: 06/14/20 20:46 Last Admin: 06/14/20 23:33 Dose: 1,200 mg Documented by: [id number] Gabapentin (Gabapentin 600 Mg Tab) 600 mg PO Q6H [facility] Stop: 06/15/20 12:01 Last Admin: 06/15/20 12:30 Dose: 600 mg Documented by: [id number] Admin: 06/15/20 05:59 Dose: 600 mg Documented by: [id number] Gabapentin (Gabapentin 600 Mg Tab) 600 mg PO Q8H [facility] Stop: 06/16/20 14:01 Last Admin: 06/16/20 13:08 Dose: 600 mg Documented by: [id number] Admin: 06/16/20 05:49 Dose: 600 mg Documented by: [id number] Admin: 06/15/20 23:00 Dose: 600 mg Documented by: [id number] Gabapentin (Gabapentin 600 Mg Tab) 600 mg PO Q12H [facility] Stop: 06/17/20 12:01 Last Admin: 06/17/20 12:30 Dose: 600 mg Documented by: [id number] Admin: 06/17/20 00:04 Dose: 600 mg Documented by: [id number] Gabapentin (Gabapentin 600 Mg Tab) 600 mg PO Q24H [facility] Stop: 06/18/20 12:01 Last Admin: 06/18/20 12:14 Dose: 600 mg Documented by: [id number] Gadobutrol (Gadobutrol 65ml Vial) 6.5 ml IV ONCE ONE Stop: 06/15/20 13:52 Last Admin: 06/15/20 13:51 Dose: 6.5 ml Documented by: [id number] Gentamicin Sulfate (Gentamicin Sulfate 40 Mg/Ml 2 Ml Vial) Confirm Administered Dose 240 mg .ROUTE .STK-MED ONE Stop: 06/17/20 08:27 Last Admin: 06/17/20 11:30 Dose: Not Given Documented by: [id number] Ceftriaxone Sodium (Rocephin) 2,000 mg in 70 mls @ 140 mls/hr IV NOW STA Stop: 06/14/20 13:55 Last Infusion: 06/14/20 15:32 Dose: 0 mls/hr Documented by: [id number] Admin: 06/14/20 14:56 Dose: 140 mls/hr Documented by: [id number] Multivitamins 10 ml/ Thiamine HCl 100 mg/ Folic Acid 1 mg/Sodium Chloride 1,011.2 mls @ 1,011.2 mls/hr IV .Q1H ONE Stop: 06/14/20 14:25 Last Infusion: 06/14/20 16:03 Dose: 0 mls/hr Documented by: [id number] Admin: 06/14/20 14:57 Dose: 1,011.2 mls/hr Documented by: [id number] Sodium Chloride (Nss 1000ml) 500 mls @ 999 mls/hr IV .Q31M ONE Stop: 06/14/20 15:24 Last Infusion: 06/14/20 17:46 Dose: 0 mls/hr Documented by: [id number] Admin: 06/14/20 16:08 Dose: 999 mls/hr Documented by: [id number] Daptomycin 250 mg/ Syringe 5 mls @ 2.5 mls/min IV NOW ONE; Protocol Stop: 06/14/20 14:57 Last Admin: 06/14/20 16:05 Dose: 2.5 mls/min Documented by: [id number] Magnesium Sulfate/Dextrose (Magnesium Sulfate / D5w) 1 gm in 100 mls @ 100 mls/hr IV Q1H [facility] Stop: 06/14/20 20:19 Last Infusion: 06/15/20 02:29 Dose: 0 mls/hr Documented by: [id number] Admin: 06/14/20 20:28 Dose: 100 mls/hr Documented by: [id number] Infusion: 06/14/20 20:28 Dose: 100 mls/hr Documented by: [id number] Admin: 06/14/20 19:28 Dose: 100 mls/hr Documented by: [id number] Thiamine HCl 200 mg/ Syringe 11 mls @ 2 mls/min IV BID [facility] Stop: 07/14/20 20:59 Last Admin: 06/15/20 08:14 Dose: 2 mls/min Documented by: [id number] Admin: 06/14/20 23:33 Dose: 2 mls/min Documented by: [id number] Sodium Chloride (Nss 1000ml) 1,000 mls @ 80 mls/hr IV .[id number] [facility] Stop: 06/15/20 21:26 Last Infusion: 06/16/20 01:00 Dose: 0 mls/hr Documented by: [id number] Infusion: 06/15/20 13:53 Dose: 80 mls/hr Documented by: [id number] Infusion: 06/15/20 13:40 Dose: 0 mls/hr Documented by: [id number] Admin: 06/15/20 08:14 Dose: 80 mls/hr Documented by: [id number] Infusion: 06/15/20 08:14 Dose: 80 mls/hr Documented by: [id number] Admin: 06/14/20 21:00 Dose: 80 mls/hr Documented by: [id number] Phytonadione 5 mg/ Sodium (Chloride) 50.5 mls @ 101 mls/hr IV ONE ONE Stop: 06/14/20 21:14 Last Infusion: 06/14/20 23:50 Dose: 0 mls/hr Documented by: [id number] Admin: 06/14/20 23:18 Dose: 101 mls/hr Documented by: [id number] Piperacillin Sod/Tazobactam (Sod 3.375 gm/ Dextrose) 115 mls @ 28.75 mls/hr IV NOW ONE; Protocol Stop: 06/15/20 01:14 Last Infusion: 06/15/20 03:40 Dose: 0 mls/hr Documented by: [id number] Admin: 06/14/20 23:40 Dose: 28.8 mls/hr Documented by: [id number] Magnesium Sulfate/Dextrose (Magnesium Sulfate / D5w) 1 gm in 100 mls @ 50 mls/hr IV Q2H MARYBETH Stop: 06/15/20 15:59 Last Infusion: 06/15/20 17:01 Dose: 0 mls/hr Documented by: [id number] Admin: 06/15/20 14:55 Dose: 50 mls/hr Documented by: [id number] Infusion: 06/15/20 14:34 Dose: 50 mls/hr Documented by: [id number] Infusion: 06/15/20 13:52 Dose: 50 mls/hr Documented by: [id number] Infusion: 06/15/20 13:39 Dose: 0 mls/hr Documented by: [id number] Admin: 06/15/20 12:21 Dose: 50 mls/hr Documented by: [id number] Infusion: 06/15/20 12:21 Dose: 50 mls/hr Documented by: [id number] Admin: 06/15/20 10:24 Dose: 50 mls/hr Documented by: [id number] Potassium Chloride ([place] / Wtr) 10 meq in 100 mls @ 100 mls/hr IV Q1H MARYBETH Stop: 06/15/20 12:59 Last Infusion: 06/15/20 12:33 Dose: 0 mls/hr Documented by: [id number] Admin: 06/15/20 11:28 Dose: 100 mls/hr Documented by: [id number] Infusion: 06/15/20 11:25 Dose: 100 mls/hr Documented by: [id number] Admin: 06/15/20 10:25 Dose: 100 mls/hr Documented by: [id number] Vancomycin HCl 1,500 mg/ (Sodium Chloride) 530 mls @ 200 mls/hr IV TODAY@1200 ONE Stop: 06/15/20 14:38 Last Infusion: 06/15/20 15:21 Dose: 0 mls/hr Documented by: [id number] Infusion: 06/15/20 13:53 Dose: 200 mls/hr Documented by: [id number] Infusion: 06/15/20 13:40 Dose: 0 mls/hr Documented by: [id number] Admin: 06/15/20 12:26 Dose: 200 mls/hr Documented by: [id number] Vancomycin HCl 1,000 mg/ (Sodium Chloride) 270 mls @ 200 mls/hr IV Q8H MARYBETH Stop: 06/22/20 19:59 Last Infusion: 06/17/20 05:45 Dose: 0 mls/hr Documented by: [id number] Admin: 06/17/20 04:24 Dose: 200 mls/hr Documented by: [id number] Infusion: 06/16/20 23:01 Dose: 0 mls/hr Documented by: [id number] Admin: 06/16/20 21:40 Dose: 200 mls/hr Documented by: [id number] Infusion: 06/16/20 14:12 Dose: 0 mls/hr Documented by: [id number] Admin: 06/16/20 12:28 Dose: 200 mls/hr Documented by: [id number] Infusion: 06/16/20 05:16 Dose: 0 mls/hr Documented by: [id number] Admin: 06/16/20 03:55 Dose: 200 mls/hr Documented by: [id number] Infusion: 06/15/20 21:00 Dose: 0 mls/hr Documented by: [id number] Admin: 06/15/20 19:28 Dose: 200 mls/hr Documented by: [id number] Vancomycin HCl 1,000 mg/ (Sodium Chloride) 270 mls @ 200 mls/hr IV Q12H MARYBETH; Protocol Stop: 07/29/20 19:59 Last Infusion: 06/17/20 23:40 Dose: 0 mls/hr Documented by: [id number] Admin: 06/17/20 22:04 Dose: 200 mls/hr Documented by: [id number] Sodium Chloride (Nss 1000ml) 1,000 mls @ 100 mls/hr IV .Q10H MARYBETH Stop: 06/18/20 06:00 Last Infusion: 06/18/20 08:35 Dose: 0 mls/hr Documented by: [id number] Admin: 06/17/20 22:15 Dose: 100 mls/hr Documented by: [id number] Infusion: 06/17/20 22:15 Dose: 100 mls/hr Documented by: [id number] Admin: 06/17/20 12:30 Dose: 100 mls/hr Documented by: [id number] Potassium Phosphate 15 mmol/ (Sodium Chloride) 255 mls @ 88 mls/hr IV ONE ONE Stop: 06/18/20 10:53 Last Infusion: 06/18/20 12:03 Dose: 0 mls/hr Documented by: [id number] Admin: 06/18/20 08:22 Dose: 88 mls/hr Documented by: [id number] Vancomycin HCl 1,000 mg/ (Sodium Chloride) 270 mls @ 200 mls/hr IV Q12H MARYBETH; Protocol Stop: 07/30/20 09:59 Last Infusion: 06/18/20 13:42 Dose: 0 mls/hr Documented by: [id number] Admin: 06/18/20 12:02 Dose: 200 mls/hr Documented by: [id number] Magnesium Sulfate/Dextrose (Magnesium Sulfate / D5w) 1 gm in 100 mls @ 50 mls/hr IV Q2H MARYBETH Stop: 06/19/20 13:44 Last Infusion: 06/19/20 15:11 Dose: 0 mls/hr Documented by: [id number] Admin: 06/19/20 12:40 Dose: 50 mls/hr Documented by: [id number] Infusion: 06/19/20 12:25 Dose: 0 mls/hr Documented by: [id number] Admin: 06/19/20 09:47 Dose: 50 mls/hr Documented by: [id number] Ibuprofen (Ibuprofen 800 Mg Tab) 800 mg PO NOW STA Stop: 06/18/20 23:37 Last Admin: 06/19/20 00:12 Dose: Not Given Documented by: [id number] Ibuprofen (Ibuprofen 200 Mg Tab) 400 mg PO NOW STA Stop: 06/18/20 23:37 Last Admin: 06/19/20 00:07 Dose: 400 mg Documented by: [id number] Insulin Human Regular (Novolin-R Insulin Per Unit Charge) 10 units IV NOW STA Stop: 06/14/20 14:57 Last Admin: 06/14/20 16:08 Dose: 10 units Documented by: [id number] Cosigned by: [id number] Ioversol (Optiray 320 125ml) 120 ml IV ONCE ONE Stop: 06/14/20 15:25 Last Admin: 06/14/20 15:24 Dose: 120 ml Documented by: [id number] Lorazepam (Lorazepam 1 Mg Tab) 2 mg PO NOW STA Stop: 06/14/20 18:52 Last Admin: 06/14/20 19:28 Dose: 2 mg Documented by: [id number] Miscellaneous (Remove Clonidine Patch) 1 ea N/A CQWK MARYBETH Stop: 07/14/20 16:44 Last Admin: 06/15/20 08:15 Dose: 1 ea Documented by: [id number] Miscellaneous (Carbohydrates For Hypoglycemia ) 30 gm PO ONCE ONE Stop: 06/15/20 20:33 Last Admin: 06/15/20 20:34 Dose: 30 gm Documented by: [id number] Vancomycin HCl (Vancomycin Hcl 1000mg/20ml Vial) Confirm Administered Dose 50 mg .ROUTE .STK-MED ONE Stop: 06/17/20 08:26 Last Admin: 06/17/20 11:30 Dose: Not Given Documented by: [id number] Medical Decision Making Differential Diagnosis Fracture, subluxation, dislocation, contusion, ligamentous injury, neurovascular, compartment syndrome, rhabdomyolysis, as well as other pathologies. Medical Records Attestation: I reviewed the patient's medical records. Home Medications Current Medication List: was personally reviewed by me Laboratory Data Attestation: I reviewed the patient's lab results. Result diagrams: 06/19/20 07:31 06/19/20 07:31 Lab Results 06/14/20 06/14/20 06/14/20 Range/Units 13:55 13:56 13:56 WBC 13.79 H (4.8-10.8) K/uL RBC 2.99 L (4.2-5.4) M/uL Hgb 9.9 L (12.0-16.0) g/dL POC Hgb (12.0-16.0) g/dl Hct 29.5 L (37-47) % POC Hct (37-47) % MCV 98.7 (80-100) fL MCH 33.1 (25-34) pg MCHC 33.6 (32-36) g/dL RDW Std Deviation 52.2 H (36.4-46.3) fL RDW Coeff of Francis 14.6 H (11.5-14.5) % Plt Count 229 (130-400) K/uL MPV 10.0 (7.4-10.4) fL Immature Gran % (Auto) 0.5 % Neut % (Auto) 79.3 % Lymph % (Auto) 9.8 % [place] % (Auto) 10.2 % Eos % (Auto) 0.1 % Baso % (Auto) 0.1 % Neut # (Auto) 10.94 H (1.4-6.5) K/uL Lymph # (Auto) 1.35 (1.2-3.4) K/uL [place] # (Auto) 1.41 H (0.11-0.59) K/uL Eos # (Auto) 0.01 (0-0.5) K/uL Baso # (Auto) 0.01 (0-0.2) K/uL Immature Gran # (Auto) 0.07 H (0.00-0.02) K/uL ESR 74 H (0-21) mm/hr PT 16.1 H (9.0-12.0) Seconds INR 1.6 H (0.9-1.1) APTT 26.9 (21.0-31.0) Seconds PTT Ratio 1.0 POC Sodium (135-144) mmol/L Sodium (136-145) mmol/L POC Potassium (3.3-5.0) mmol/L Potassium (3.5-5.1) mmol/L POC Chloride (101-112) mmol/L Chloride (98-107) mmol/L Carbon Dioxide (21-32) mmol/L POC Total CO2 (24-31) mmol/L Anion Gap (3-11) POC Anion Gap (16-25) mmol/L POC BUN (7-18) mg/dl BUN (7-18) mg/dl Creatinine (0.6-1.2) mg/dl POC Creatinine (0.6-1.3) mg/dl Est Cr Clr Drug Dosing ml/min Est GFR ( Amer) Est GFR (Non-Af Amer) BUN/Creatinine Ratio (10-20) Glucose (70-99) mg/dl POC Glucose (other) (70-99) mg/dl Calcium (8.5-10.1) mg/dl POC Ioniz Calcium Lizeth (1.12-1.32) mmol/l Magnesium (1.8-2.4) mg/dl Total Bilirubin (0.2-1) mg/dl AST (15-37) U/L ALT (12-78) U/L Alkaline Phosphatase (45-117) U/L Troponin I (0-0.045) ng/ml Total Protein (6.4-8.2) gm/dl Albumin (3.4-5.0) gm/dl Globulin (2.5-4.0) gm/dl Albumin/Globulin Ratio (0.9-2) Beta-Hydroxybutyric Acd (0.2-2.81) mg/dl 06/14/20 06/14/20 Range/Units 13:56 14:03 WBC (4.8-10.8) K/uL RBC (4.2-5.4) M/uL Hgb (12.0-16.0) g/dL POC Hgb 10.9 L (12.0-16.0) g/dl Hct (37-47) % POC Hct 32 L (37-47) % MCV (80-100) fL MCH (25-34) pg MCHC (32-36) g/dL RDW Std Deviation (36.4-46.3) fL RDW Coeff of Francis (11.5-14.5) % Plt Count (130-400) K/uL MPV (7.4-10.4) fL Immature Gran % (Auto) % Neut % (Auto) % Lymph % (Auto) % [place] % (Auto) % Eos % (Auto) % Baso % (Auto) % Neut # (Auto) (1.4-6.5) K/uL Lymph # (Auto) (1.2-3.4) K/uL [place] # (Auto) (0.11-0.59) K/uL Eos # (Auto) (0-0.5) K/uL Baso # (Auto) (0-0.2) K/uL Immature Gran # (Auto) (0.00-0.02) K/uL ESR (0-21) mm/hr PT (9.0-12.0) Seconds INR (0.9-1.1) APTT (21.0-31.0) Seconds PTT Ratio POC Sodium 130 L (135-144) mmol/L Sodium 129 L (136-145) mmol/L POC Potassium 3.7 (3.3-5.0) mmol/L Potassium 3.6 (3.5-5.1) mmol/L POC Chloride 86 L (101-112) mmol/L Chloride 91 L (98-107) mmol/L Carbon Dioxide 33 H (21-32) mmol/L POC Total CO2 29 (24-31) mmol/L Anion Gap 5.0 (3-11) POC Anion Gap 20.0 (16-25) mmol/L POC BUN 11 (7-18) mg/dl BUN 12 (7-18) mg/dl Creatinine 0.72 (0.6-1.2) mg/dl POC Creatinine 0.4 L (0.6-1.3) mg/dl Est Cr Clr Drug Dosing 78.8 ml/min Est GFR ( Amer) 106.2 Est GFR (Non-Af Amer) 91.7 BUN/Creatinine Ratio 16.3 (10-20) Glucose 330 H* (70-99) mg/dl POC Glucose (other) 326 H (70-99) mg/dl Calcium 8.8 (8.5-10.1) mg/dl POC Ioniz Calcium Lizeth 1.09 L (1.12-1.32) mmol/l Magnesium 1.4 L (1.8-2.4) mg/dl Total Bilirubin 1.4 H (0.2-1) mg/dl AST 149 H (15-37) U/L ALT 47 (12-78) U/L Alkaline Phosphatase 208 H (45-117) U/L Troponin I < 0.015 (0-0.045) ng/ml Total Protein 7.9 (6.4-8.2) gm/dl Albumin 2.9 L (3.4-5.0) gm/dl Globulin 5.0 H (2.5-4.0) gm/dl Albumin/Globulin Ratio 0.6 L (0.9-2) Beta-Hydroxybutyric Acd 10.90 H (0.2-2.81) mg/dl Imaging Data Radiologist's Impression: [facility], [phone] XRay Report Patient: HERB ALTAMIRANO Date: 06/14/20MR#: [id number]: [address] INES RDAcct ID:[id number]: Date: 1960[facility] Zip: [place], [place] [address]Kxo: 59Location: EDSex: FRoom/Bed:Att Phy:Diagnosis: TOE PAINPri Phy: PCP,NOService Date: 06/14/20Fam Phy:Interpreting Phy: Leo Fields MDAdmit Phy: Ordering Phy: Jose Daniel Murphy MD cc: ~ LEFT FIRST TOE 3 VIEWS CLINICAL HISTORY: Left toe pain. FINDINGS: 3 views of the left first toe are obtained. No prior studies are available for comparison at the time of dictation. The skeletal structures are osteopenic. No fracture is seen. Mild osteoarthritic change is seen at the first metatarsophalangeal joint. Spurs arise from the base of the first distal phalanx. Mild soft tissue swelling is suggested in the first toe. No radiodense foreign body is seen. IMPRESSION: 1. Mild soft tissue swelling with no acute bony abnormality identified. 2. Large spurs arise from the base of the first distal phalanx. Electronically signed by: Leo Fields M.D. 06/14/2020 4:21 PM Dictated: 06/14/209Transcribed: 06/14/20 1619 [facility], [id number] CT Scan Report Patient: HERB ALTAMIRANO Date: 06/14/20#: [id number]: Julieth SPANN RDAcct ID:[id number]: Date: 1960City Zip: [place] [address]Vjf: 59Location: EDSex: FRoom/Bed:Att Phy:Diagnosis: TOE PAINPri Phy: PCP,NOService Date: 06/14/20Fam Phy:Interpreting Phy: Leo Fields MDAdmit Phy: Ordering Phy: Jose Daniel Murphy MD cc: ~ UNENHANCED CT OF THE BRAIN; CT ANGIOGRAM OF THE BRAIN; CT ANGIOGRAM OF THE NECK CLINICAL HISTORY: Strokelike symptoms. Weakness. COMPARISON STUDY: CT of the brain dated 05/09/2020. TECHNIQUE: Unenhanced axial CT scan of the brain is performed. Subsequently, following the IV administration of 120 of Optiray 320, CT angiogram of the head and neck was performed from the aortic arch to the vertex. Images are reviewed in the axial, sagittal, and coronal planes. 3-D MIPS images are created and assessed. IV contrast was administered without complication. All measurements were calculated based on NASCET criteria. A dose lowering technique was utilized adhering to the principles of ALARA. CT DOSE: 1062.70 mGy.cm FINDINGS: Brain parenchyma: A chronic lacunar infarct is suggested in the rey. There is no hemorrhage, mass effect, or evidence of acute territorial ischemia by CT criteria. There is no evidence of enhancing mass lesion on the angiogram phase i mages. The ventricles, sulci, and cisterns are normal in configuration. Dasilva- white matter differentiation is preserved. No extra-axial fluid collection is seen. Thoracic aorta: Visualized portions of the thoracic aorta are normal in caliber. The aortic arch demonstrates standard 3-vessel anatomy. Right carotid arterial system: The right common carotid artery is widely patent. Atherosclerotic plaque in the carotid bulb causes less than 50% luminal narrowing at the origin of the right internal carotid artery. The remainder of the right internal carotid artery is widely patent, as is the right external carotid artery. Left carotid arterial system: The left common carotid artery is widely patent. Atherosclerotic plaque in the carotid bulb causes less than 50% luminal narrowing at the origin of the left internal carotid artery. There is also moderate stenosis at the origin of the left external carotid artery. The remainder of the left internal carotid artery is widely patent. Vertebral arteries: The vertebral arteries are patent bilaterally. The right vertebral artery is dominant. The left vertebral artery terminates as the PICA. Subclavian arteries: Widely patent bilaterally. Intracranial vasculature: There is atherosclerotic calcification of the cavernous carotid and vertebral arteries. The right A1 segment is diminutive. There is origin of the right posterior cerebral artery. There is mild luminal narrowing an atherosclerotic irregularity within the cavernous carotid arteries. The internal carotid arteries are otherwise widely patent at the skull base, as are the anterior and middle cerebral arteries bilaterally. The vertebrobasilar system and posterior cerebral arteries are widely patent. The right vertebral artery is dominant. There is no aneurysm, high-grade stenosis, or focal vessel cut off seen throughout the intracranial circulation. Jugular veins: Patent bilaterally. Dural sinuses: Patent. Lung apices: Partially visualized upper lobe lung parenchyma appears clear. Soft tissues: The visualized pharyngeal soft tissues are normal in appearance no ting angiographic phase technique. The oropharyngeal airway appears widely patent. The salivary and thyroid glands are normal in appearance. No cervical lymphadenopathy is seen. Skeletal structures: The skeletal structures are osteopenic. The calvarium appears intact. The cervical spine is within normal limits. Orbits: The bony orbits are intact. Orbital contents are normal as imaged. Sinuses and mastoids: The paranasal sinuses are clear. The mastoid air cells are well pneumatized. IMPRESSION: 1. There is no hemorrhage, mass effect, or evidence of acute territorial ischemia by CT criteria. 2. Unremarkable CT angiogram of the brain. 3. Atherosclerotic plaque causes less than 50% luminal narrowing at the origin of both internal carotid arteries. 4. The left vertebral artery is diminutive and terminates as the PICA. ACT 112: Negative or not required by law. Electronically signed by: Leo Fields M.D. 06/14/2020 3:43 PM Dictated: 06/14/201525Transcribed: 06/14/201525 ECG Data Attestation: I personally reviewed and interpreted this ECG as follows: Indication: + weakness Rate (beats per minute): 75 Rhythm: + normal sinus ECG Intervals/blocks: + Normal QT-c (448) ECG Mcgregor: + Normal ECG ST segments: no ST depression and no ST elevation Comparison ECG Date: from (05/17/2020) Change: the following changes noted (Vent rate decreased by 37) MDM Narrative This is a 59-year-old female presents the emergency department not taking care of herself and unable to walk. There is concern is that the patient has an infection in her toe. Had a lengthy discussion with the patient's sister as well as the patient. Patient's sister is requesting that the patient be admitted and is requesting placement. I did discuss these findings with case management as well as the hospitalist service who readily admitted the patient. Patient is in agreement with the treatment plan. Patient does have an elevation in her white blood cell count. Patient was seen and evaluated as above in room B12. Review was performed of nursing notes and vital signs. I did review pertinent previous visits and patient history. After obtaining a thorough history and physical examination the above work up was performed. An order was placed for continuous cardiac monitoring. The monitor shows a rate of 72 with Normal SInus rhythm. The patient was evaluated during the global COVID-19 pandemic, and that diagnosis was suspected/considered upon their initial presentation. Their evaluation, treatment and testing was consistent with current guidelines for patients who present with complaints or symptoms that may be related to COVID- 19. Impression & Plan Weakness of both legs, Cellulitis of great toe of left foot Discharge Plan Visit Data Chief Complaint: Foot Injury/Pain Stated Complaint: TOE PAIN ED Provider: Jose Daniel Murphy Discharge Problem: Weakness of both legs, Cellulitis of great toe of left foot Patient Disposition: Admitted As Inpatient Discharge Instructions Interventions: ED Discharge Assessment Last Done: 06/14/20 20:00
[2020-06-14] MEDS ORDERED: cloNIDine HCL 0.3 MG/24 HR TRANSDERM SYS TD STA (16:37)
--- NOTE | 2020-06-14 17:21 | History & Physical Report ---
Date of Service June 14, 2020 Assessment & Plan (1) Cellulitis of great toe of left foot: Patient has a combination of cellulitis of the left great toe, a neuropathic ulcer of left great toe, and an ulcer on the plantar aspect overlying the first metatarsal head. The ulcer has black eschar consistent with gangrene. Given rocephin/daptomycin in ER. Will change to IV zosyn with vancomycin. Obtain blood cultures now. Check sed rate and crp. MRI left foot with contrast - r/o osteomyelitis, etc. Likely to need orthopedic consultation. Obtain wound care consult. Will make partial WB to LLE for now. I am concerned by the lesions on the bottom of the right foot. Are these from septic emboli? Prior echo earlier this fall showed ? valvular lesion on the aortic valve. Very low threshold for echo to r/o SBE given these lesions as well as loud aortic stenosis murmur, etc. (2) Gangrene of left foot: See above in "cellulitis." Will obtain LLE arterial duplex study to r/o significant PAD. (3) Weakness of both legs: She does have fairly normal strength on muscle testing in the ER tonight. However, she is reporting numbness of the bilateral upper thighs/buttocks region. She denies midline back pain. There is no sensory level by way of history. Could weakness simply be due to systemic infection? [id number] I am concerned by this complaint and she may need MRI lumbar sp ine to investigate further. Of note - previous B12 level was wnl. (4) Diabetes mellitus type 2, uncontrolled: Continue lantus; adjust as needed. Novolog - correction factor 35; carb ratio 1:12. (5) Chronic alcohol use: At risk of withdrawal. Place on etoh withdrawal protocol with gabapentin standing and PRN ativan. Thiamine 200mg IV BID. Folate 1mg IV daily. MVI. Place on telemetry. Check etoh level. (6) Diabetic neuropathy: Severe. Consider gabapentin. (7) Pulmonary nodules/lesions, multiple: Seen on CT chest earlier this fall. Could this be septic emboli? other? (8) Hypomagnesemia: Give 2 grams mag sulfate. Repeat level am. (9) Hyponatremia: Pseudohyponatremia from high BSG. Could also have component of volume depletion. Hydrate with NS and repeat BMP am. (10) Acute hepatitis: LFTs are chronically elevated, but much worse today. INR also worse at 1.6. Acute alcoholic hepatitis? HepC Ab 05/15 was negative. Kaci's discriminant function score is 20 -- defer on steroids. Vitamin K for coagulopathy. Supportive care. Repeat labs am. (11) Coagulopathy: 2nd to acute hepatitis (suspected). vitamin K 5mg IV x 1. Repeat INR am. (12) Hypertension: Cont metoprolol xl. Cont BETZAIDA. (13) DVT prophylaxis: Despite coagulopathy she is at high risk of DVT. Thus, heparin 5000 BID. IVF - NS x 2 L. History of Present Illness Chief Complaint: difficulty walking Primary Care Provider: NO PCP 59yo female - well known to me from 04/2020 admission for etoh intoxication - with history of alcoholism, uncontrolled DM, and HTN presents with complaints of difficulty ambulating and left foot infection. Ms Marquez is a very poor historian and was unable to pinpoint specific time periods for her complaints. She did finally state that she thought the walking got worse over the last 3-4 days. She stated "my thighs don't want to work." Multiple times she kept blaming her symptoms on "her neuropathy." I asked if she had any numbness of the legs and initially she replied no. However, later in the encounter, she mentioned having numbness in her thighs and buttocks. Denied any bowel or bladder incontinence. Ms Marquez denied any fever, chills, loss of appetite, loss of taste or smell, na oh congestion, sore throat, dyspnea. She has a cough but it is unchanged/chronic. Denied abdominal pain, nausea, emesis, diarrhea. Last etoh intake was about 1 month ago. However, she told another member of the care team that she last drank 2 weeks ago. During the last hospital stay she told us that she was essentially homeless and that she had been living out of her car. However, tonight she said she has been living with her sister. Allergies Allergy/AdvReac Type Severity Reaction Status Date / Time No Known Allergies Allergy Verified 06/14/20 15:58 Home Medications Medication Instructions Recorded Confirmed Type metoprolol succinate 25 mg PO DAILY #30 tab 05/11/20 06/14/20 Rx insulin glargine [Lantus U-100 20 unit SUBCUT HS 05/17/20 06/14/20 History Insulin] metformin 1,000 mg PO BIDM 05/17/20 06/14/20 History cholecalciferol (vitamin D3) 2,000 unit PO DAILY 06/14/20 06/14/20 History [Vitamin D3] glimepiride 2 mg PO QAM 06/14/20 06/14/20 History lisinopril 10 mg PO DAILY 06/14/20 06/14/20 History loperamide See Rx Instructions .ROUTE 06/14/20 06/14/20 History .COMPLEX PRN MDD 16 MG/24 HOURS Past Med/Surg History Medical History Acute head injury Acute hyponatremia Avulsed toenail Diabetes mellitus type 2, uncontrolled Diabetic neuropathy Hypertension Hypokalemia Hypomagnesemia Tinea pedis Surgical History No pertinent past surgical history Family History Father Dementia in his 80s Mother , in her 70s Diabetes Social History Smoking Status: Current every day smoker Tobacco Type: Cigarettes Cigarettes Per Day: 1/2 ppd; Second Hand Exposure: Yes; Hx Alcohol Use: Yes Alcohol type: hard liquor Alcohol Intake Frequency Comment: daily, at least 3 shots Hx Substance Use: No Preferred Language: Hungarian Communication Ability: Effective 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 Overlock Required: No Beliefs That Will Affect Care: None marital status: Single Current Living Situation: Other Current Living Situation Comment: living in her truck, stays with sister sometimes current occupational status: disabled How many Children do You have: 1 How many Children do You have Comment: son Feels Safe at Home: Yes Assistive Devices: Walker Review of Systems Constitutional: no fever, no chills, no fatigue and no anorexia Eyes: no worsening vision Ear, Nose, Mouth, Throat: no nasal congestion, no sore throat and no dysphagia Respiratory: + cough; no dyspnea Cardiovascular: no chest pain Gastrointestinal: no abdominal pain, no nausea, no vomiting and no diarrhea/loose stools Genitourinary: no dysuria Musculoskeletal: + joint pain Integumentary: + non-healing lesions, + skin ulcer and + erythema Neurologic: + unsteadiness, + localized weakness (legs) and + loss of sensation Psychiatric: + abnormal sleep pattern Endocrine: does not check sugars Hematologic / Lymphatic: + easy bruising Physical Exam Constitutional: + ill appearing and + frail appearing; + not well developed, + not well nourished, no acute distress and + not healthy appearing Eyes: PERRL ENMT: Mouth: + poor dentition; oral mucous membranes not dry Neck: trachea midline, no thyromegaly Respiratory: normal respiratory effort, lungs clear to auscultation Cardiovascular: Rate/Rhythm: regular rate and regular rhythm Heart Sounds: normal S1, normal S2 and + murmur (3/6 holosystolic RUSB/apex) Vessels: posterior tibial pulses present (1+ b/l ), dorsalis pedis pulses present (1+ b/l) and popliteal pulses present (1+ b/l ); no JVD Extremities: normal capillary refill (about 2 seconds b/l feet ) Gastrointestinal (Abdomen): Inspection/Auscultation: normal bowel sounds; abdomen not distended Percussion/Palpation: abdomen soft and + hepatomegaly; abdomen nontender Musculoskeletal: neuropathic changes of b/l feet Skin: left foot: great toe with absent toenail. Entire first toe is erythematous, swollen, and warm to touch. Cap refill about 2 seconds. There is a superficial ulcer on the medial aspect of the toe with no drainage. There is black eschar with odor over the head of the first metatarsal on plantar side of foot. right foot: multiple dark papules/macules on sole of foot; embolic phenomenon?? numerous abrasions and scabbed lesions over legs, arms, etc. numerous tattoos present on arms. Neurologic: hip flexion 5/5 bilaterally. knee extension 5/5 b/l. ankle dorsiflexion/plantarflexion 5/5. DTRs: 1-2+ patellar b/l. 0 achilles b/l. arms 1+ b/l Psychiatric: Orientation: alert and oriented x 3 no evidence of intoxication Lymphatic: no cervical lymphadenopathy Results & Data Results & Data ([facility]) Vital Signs (Past 12 Hours) Vital Signs Temp Pulse Resp BP Pulse Ox 06/14/20 16:31 91 H 16 196/68 H 06/14/20 16:10 87 15 193/88 H 100 06/14/20 15:30 88 16 98 06/14/20 15:00 75 18 167/61 H 100 06/14/20 14:31 85 19 178/82 H 100 06/14/20 14:00 82 19 188/74 H 100 06/14/20 13:11 37.1 C 74 24 165/76 H 98 Laboratory Results Laboratory Results - last 24 hr 06/14/20 06/14/20 06/14/20 13:55 13:56 13:56 WBC 13.79 H RBC 2.99 L Hgb 9.9 L POC Hgb Hct 29.5 L POC Hct MCV 98.7 MCH 33.1 MCHC 33.6 RDW Std Deviation 52.2 H RDW Coeff of Francis 14.6 H Plt Count 229 MPV 10.0 Immature Gran % (Auto) 0.5 Neut % (Auto) 79.3 Lymph % (Auto) 9.8 Mariposa % (Auto) 10.2 Eos % (Auto) 0.1 Baso % (Auto) 0.1 Neut # (Auto) 10.94 H Lymph # (Auto) 1.35 Mariposa # (Auto) 1.41 H Eos # (Auto) 0.01 Baso # (Auto) 0.01 Immature Gran # (Auto) 0.07 H ESR 74 H PT 16.1 H INR 1.6 H APTT 26.9 PTT Ratio 1.0 POC Sodium Sodium POC Potassium Potassium POC Chloride Chloride Carbon Dioxide POC Total CO2 Anion Gap POC Anion Gap POC BUN BUN Creatinine POC Creatinine Est Cr Clr Drug Dosing Est GFR ( Amer) Est GFR (Non-Af Amer) BUN/Creatinine Ratio Glucose POC Glucose (other) Calcium POC Ioniz Calcium Lizeth Magnesium Total Bilirubin AST ALT Alkaline Phosphatase Troponin I C-Reactive Protein Total Protein Albumin Globulin Albumin/Globulin Ratio Beta-Hydroxybutyric Acd Ethyl Alcohol mg/dL SARS-CoV-2 Ag (Rapid) 06/14/20 06/14/20 06/14/20 13:56 14:03 18:57 WBC RBC Hgb POC Hgb 10.9 L Hct POC Hct 32 L MCV MCH MCHC RDW Std Deviation RDW Coeff of Francis Plt Count MPV Immature Gran % (Auto) Neut % (Auto) Lymph % (Auto) Mariposa % (Auto) Eos % (Auto) Baso % (Auto) Neut # (Auto) Lymph # (Auto) Mariposa # (Auto) Eos # (Auto) Baso # (Auto) Immature Gran # (Auto) ESR PT INR APTT PTT Ratio POC Sodium 130 L Sodium 129 L POC Potassium 3.7 Potassium 3.6 POC Chloride 86 L Chloride 91 L Carbon Dioxide 33 H POC Total CO2 29 Anion Gap 5.0 POC Anion Gap 20.0 POC BUN 11 BUN 12 Creatinine 0.72 POC Creatinine 0.4 L Est Cr Clr Drug Dosing 78.8 Est GFR ( Amer) 106.2 Est GFR (Non-Af Amer) 91.7 BUN/Creatinine Ratio 16.3 Glucose 330 H* POC Glucose (other) 326 H Calcium 8.8 POC Ioniz Calcium Lizeth 1.09 L Magnesium 1.4 L Total Bilirubin 1.4 H AST 149 H ALT 47 Alkaline Phosphatase 208 H Troponin I < 0.015 C-Reactive Protein 4.41 H Total Protein 7.9 Albumin 2.9 L Globulin 5.0 H Albumin/Globulin Ratio 0.6 L Beta-Hydroxybutyric Acd 10.90 H Ethyl Alcohol mg/dL SARS-CoV-2 Ag (Rapid) 06/14/20 06/14/20 18:57 Unknown WBC RBC Hgb POC Hgb Hct POC Hct MCV MCH MCHC RDW Std Deviation RDW Coeff of Francis Plt Count MPV Immature Gran % (Auto) Neut % (Auto) Lymph % (Auto) Mariposa % (Auto) Eos % (Auto) Baso % (Auto) Neut # (Auto) Lymph # (Auto) Mariposa # (Auto) Eos # (Auto) Baso # (Auto) Immature Gran # (Auto) ESR PT INR APTT PTT Ratio POC Sodium Sodium POC Potassium Potassium POC Chloride Chloride Carbon Dioxide POC Total CO2 Anion Gap POC Anion Gap POC BUN BUN Creatinine POC Creatinine Est Cr Clr Drug Dosing Est GFR ( Amer) Est GFR (Non-Af Amer) BUN/Creatinine Ratio Glucose POC Glucose (other) Calcium POC Ioniz Calcium Lizeth Magnesium Total Bilirubin AST ALT Alkaline Phosphatase Troponin I C-Reactive Protein Total Protein Albumin Globulin Albumin/Globulin Ratio Beta-Hydroxybutyric Acd Ethyl Alcohol mg/dL < 3.0 SARS-CoV-2 Ag (Rapid) Negative Diagnostic Findings 1. left great toe x-ray: IMPRESSION: 1. Mild soft tissue swelling with no acute bony abnormality identified. 2. Large spurs arise from the base of the first distal phalanx. 2. cxr - no acute findings. 3. CT head, CTA head/neck - IMPRESSION: 1. There is no hemorrhage, mass effect, or evidence of acute territorial ischemia by CT criteria. 2. Unremarkable CT angiogram of the brain. 3. Atherosclerotic plaque causes less than 50% luminal narrowing at the origin of both internal carotid arteries. 4. The left vertebral artery is diminutive and terminates as the PICA. EKG - my reading - NSR, no ST changes Code Status & VTE Plan Code Status full VTE Prophylaxis Plan VTE Prophylaxis will be ordered: Yes PG Care Time/CCT Total # of Minutes Spent Total Time Spent with Patient: Total time spent is greater than 50% in coordination of care (as documented) at patient's floor/unit and/or counseling patient: Coding Level of Care Code 05518 Initial Inpt Care Lvl 3 Diagnoses Cellulitis of great toe of left foot L03.032 Gangrene of left foot I96 Weakness of both legs R29.898 Diabetes mellitus type 2, uncontrolled E11.65 Glycemic state: with hyperglycemia Chronic alcohol use Z72.89 Diabetic neuropathy E11.42 Diabetes mellitus type: type 2 Diabetes mellitus complication detail: diabetic polyneuropathy Pulmonary nodules/lesions, multiple R91.8 Hypomagnesemia E83.42 Hyponatremia E87.1 Acute hepatitis B17.9 Coagulopathy D68.9 Hypertension I10 Hypertension type: essential hypertension DVT prophylaxis Z29.9 (1) Diabetes mellitus type 2, uncontrolled Glycemic state: with hyperglycemia Qualified Code(s): E11.65 - Type 2 diabetes mellitus with hyperglycemia (2) Diabetic neuropathy Diabetes mellitus type: type 2 Diabetes mellitus complication detail: diabet ic polyneuropathy Qualified Code(s): E11.42 - Type 2 diabetes mellitus with diabetic polyneuropathy (3) Hypertension Hypertension type: essential hypertension Qualified Code(s): I10 - Essential (primary) hypertension
[2020-06-14] MEDS ORDERED: LORazepam 1 MG TAB PO STA (18:51)
[2020-06-14] MEDS: MAGNESIUM SULFATE / D5W 1 GM/100 ML BAG IV SCH ×2 (19:28→20:28)
[2020-06-14] MEDS ORDERED: LORazepam 1 MG TAB PO PRN (20:27)
[2020-06-14] MEDS ORDERED: ONDANSETRON INJ 2 MG/ML 2 ML VIAL IV PRN (20:27)
[2020-06-14] MEDS ORDERED: GABAPENTIN 1200MG ALCOHOL WITHDRAWAL LOAD PO STA (20:27)
[2020-06-14] MEDS ORDERED: PIPERACILL/TAZOBAC CONSULT ACTIVE PRN (20:27)
[2020-06-14] MEDS ORDERED: LORazepam 1 MG/2 ML VIAL IV PRN (20:27)
[2020-06-14] MEDS ORDERED: GABAPENTIN 600 MG TAB PO ONE (20:45)
[2020-06-14] MEDS ORDERED: PHYTONADIONE 5 MG in SODIUM CHLORIDE 0.9% 50 ML IV ONE (20:45)
[2020-06-14] MEDS: SODIUM CHLORIDE 0.9% 1000ML 1,000 ML IV SCH (21:00)
[2020-06-14] MEDS ORDERED: PIPERACILLIN/TAZOBACTAM 3.375 GM in DEXTROSE 5% 100 ML IV ONE (21:15)
[2020-06-14] MEDS: THIAMINE HCL 200 MG in SYRINGE 9 ML IV SCH (23:33)
[2020-06-14] MEDS: FOLIC ACID 1 MG in SYRINGE 9.8 ML IV SCH (23:34)
[2020-06-14] MEDS: INSULIN GLARGINE SOLOSTAR 100 UNITS/ML 3 ML PEN SC SCH (23:35)
[2020-06-14] MEDS: INSULIN ASPART 100 UNITS/ML 3 ML PEN SC SCH (23:43)
[2020-06-14] MEDS: HEPARIN SOD 5,000 UNIT/0.5 ML VIAL SQ SCH (23:46)
[2020-06-14] MEDS: METOPROLOL SUCC 25MG EXT REL TAB PO SCH (23:46)
[2020-06-15] MEDS ORDERED: CHECK CLONIDINE PATCH PLACEMENT SCH
[2020-06-15] MEDS: PIPERACILLIN/TAZOBACTAM 3.375 GM in DEXTROSE 5% 100 ML IV SCH ×3 (04:16→19:27)
[2020-06-15] MEDS: GABAPENTIN 600 MG TAB PO SCH ×3 (05:59→23:00)
--- NOTE | 2020-06-15 05:59 | Electrocardiogram Report ---
Test Reason : Blood Pressure : / mmHG Vent. Rate : 075 BPM Atrial Rate : 075 BPM P-R Int : 140 ms QRS Dur : 072 ms QT Int : 402 ms P-R-T Axes : 017 051 044 degrees QTc Int : 448 ms Normal sinus rhythm Normal ECG When compared with ECG of 17-MAY-2020 19:49, Vent. rate has decreased BY 37 BPM Confirmed by Camden Mccormick ([id number]) on 06/15/2020 5:58:37 AM Referred By: REFERRED SELF Confirmed By:Camden Mccormick
[2020-06-15 06:26] LABS: Hematocrit (blood only) 22.7 % (37-47); Hemoglobin 7.6 g/dL (12.0-16.0); Mean Corpuscular Hgb Conc 33.5 g/dL (32-36); Mean Corpuscular Volume 98.7 fL (80-100); Mean Platelet Volume 10.3 fL (7.4-10.4); Nucleated RBC # (auto) 0.03 K/uL (0-0); Nucleated RBC % (auto) 0.3 %; Platelet Count 201 K/uL (130-400); RDW Coefficient of Variation 14.7 % (11.5-14.5); RDW Standard Deviation 52.4 fL (36.4-46.3); White Blood Count 10.15 K/uL (4.8-10.8)
[2020-06-15 06:39] LABS: INR 1.3 (0.9-1.1)
[2020-06-15 07:07] LABS: Albumin Globulin Ratio 0.6 (0.9-2); BUN Creatinine Ratio 15.2 (10-20); Bilirubin,Total 0.8 mg/dl (0.2-1); Calcium 7.6 mg/dl (8.5-10.1); Creatinine Clr Calc Pharmacy 113.4 ml/min; Est GFR (African American) 122.8; Est GFR (Non-African American) 105.9; Globulin 3.6 gm/dl (2.5-4.0); Magnesium 1.5 mg/dl (1.8-2.4); Potassium 2.7 mmol/L (3.5-5.1); Total Protein 5.6 gm/dl (6.4-8.2)
--- NOTE | 2020-06-15 08:05 | Ultrasound Report ---
US arterial duplex LE LT HISTORY: 59 years-old Female foot ulvers/gangrene; eval PAD patient presents with reported soft tiss ue ulcer of the left foot COMPARISON: [Radiographs of same day TECHNIQUE: Multiple real-time sonographic images of the left lower extremity arterial structures were obtained assessing grayscale appearance, color and spectral flow FINDINGS: Limited exam secondary to lack of patient cooperation throughout the study per supervisor case loading. Segmental pressures were not conducted for this reason. Plaque is noted throughout which is at least moderate. Mostly biphasic waveforms are noted within the common femoral, profunda femoris, superficial femoral and popliteal arteries. Monophasic and biphasi c waveforms are noted within the lower leg with spectral broadening noted within the dorsalis pedis a rtery. Peak systolic velocities measure up to 224 cm/s within the profunda femoris artery and 199 cm/ s within the common femoral artery suggestive of underlying luminal narrowing. No arterial occlusion. IMPRESSION: 1. Diffuse atherosclerotic plaque without arterial occlusion. 2. Monophasic and biphasic waveforms of the lower leg. 3. Elevated peak systolic velocities within the common femoral and profunda femoris artery compatible with arterial luminal narrowing. ACT 112: Negative or not required by law. The above report was generated using voice recognition software. It may contain grammatical, syntax o r spelling errors. Electronically signed by: Javy Rodriguez M.D. 06/15/2020 8:03 AM
[2020-06-15] MEDS: SODIUM CHLORIDE 0.9% 1000ML 1,000 ML IV SCH (08:14)
[2020-06-15] MEDS: THIAMINE HCL 200 MG in SYRINGE 9 ML IV SCH (08:14)
[2020-06-15] MEDS: INSULIN ASPART 100 UNITS/ML 3 ML PEN SC SCH ×4 (08:26→21:30)
[2020-06-15] MEDS: FOLIC ACID 1 MG in SYRINGE 9.8 ML IV SCH (08:28)
[2020-06-15] MEDS: METOPROLOL SUCC 25MG EXT REL TAB PO SCH (08:29)
[2020-06-15] MEDS: HEPARIN SOD 5,000 UNIT/0.5 ML VIAL SQ SCH (08:29)
[2020-06-15] MEDS: CHOLECALCIFEROL 1,000 UNITS 25 MCG TAB PO SCH (09:25)
[2020-06-15] MEDS: lisinopril 10 MG TAB PO SCH (09:26)
[2020-06-15] MEDS: MAGNESIUM SULFATE / D5W 1 GM/100 ML BAG IV SCH ×3 (10:24→14:55)
[2020-06-15] MEDS: POTASSIUM CHLORIDE CRTAB 20 MEQ TABCR PO SCH ×3 (10:25→19:32)
[2020-06-15] MEDS: ADVANCED PROBIOTIC 1250 MG CAPSULE PO SCH (10:25)
[2020-06-15] MEDS: POTASSIUM CHLORIDE / WTR 10 MEQ/100 ML PLCT IV SCH ×2 (10:25→11:28)
[2020-06-15] MEDS: INSULIN GLARGINE SOLOSTAR 100 UNITS/ML 3 ML PEN SC SCH ×2 (10:36→21:30)
[2020-06-15] MEDS ORDERED: VANCOMYCIN CONSULT ACTIVE PRN (11:08)
--- NOTE | 2020-06-15 11:35 | Pharmacy Report ---
Pharmacy Abx Initial Consult - Date of Service June 15, 2020 - Pharmacy Dosing Scope Date of Consult: 06/15 Consultation requested by: Dr. Shabazz Pharmacy is consulted to initiate vancomycin and zosyn IV/PO dosing therapy, order appropriate labs and adjust drug dose/frequency. - Subjective The patient is a 59 year old F admitted on 06/14/20 18:15. - Objective Height: 5 ft 6 in Weight: 64.6 kg Vital Signs (Past 12hrs): Vital Signs Temp Pulse Pulse Pulse Resp BP Pulse Ox 06/15/20 08:02 36.9 C 64 22 159/70 H 97 06/15/20 07:45 64 06/15/20 02:45 38.3 C H 65 18 118/63 100 Lab Results (24hrs): Laboratory Tests (24 Hours) 06/15/20 06/15/20 06/14/20 06:03 06:03 18:57 WBC 10.15 Neut # (Auto) ESR Creatinine 0.50 L Est Cr Clr Drug Dosing 113.4 C-Reactive Protein 4.41 H 06/14/20 06/14/20 06/14/20 13:56 13:56 13:55 WBC 13.79 H Neut # (Auto) 10.94 H ESR 74 H Creatinine 0.72 Est Cr Clr Drug Dosing 78.8 C-Reactive Protein Micro Results: 06/14/20 18:57 Aerobic Blood Culture - Pending Blood Anaerobic Blood Culture - Pending 06/14/20 18:57 Aerobic Blood Culture - Pending Blood Anaerobic Blood Culture - Pending - Assessment & Plan Assessment 59 year old with cellulitis of toe. Toe xray negative for bony abnormality. Per provider notes toe with ulcer, consistent with gangrene. Ortho consulted. MRI of foot ordered. Blood cultures x 2 pending. Received one dose dapto yesterday evening. Plan to start vancomycin today. Continues on zosyn. Plan Vancomycin IV * Will start loading dose of vancomycin 1500 mg iv x 1 (~25 mg/kg/dose) * Will start maintenance dose of vancomycin 1gm (~15 mg/kg) iv q 8 hrs to achieve estimated trough ~15-20 mcg/ml. Dosing based upon vancomycin AUC nomogram * Estimated kinetics; t1/2< 8 hrs, ke~0.08 hr-1, CrCl >100 * Plan to check trough prior to the 0400 dose on 06/17 to ensure therapeutic Piperacillin/tazobactam * 3.375 gm iv q 8 hr - appropriate for CrCl >20 ml/min Pharmacy will continue to follow and will adjust dose/frequency as necessary. Thank you.
[2020-06-15] MEDS ORDERED: VANCOMYCIN HCL 1,500 MG in SODIUM CHLORIDE 0.9% 500 ML IV ONE (12:00)
[2020-06-15] MEDS ORDERED: GADOBUTROL 65ML VIAL IV ONE (13:51)
--- NOTE | 2020-06-15 14:24 | Magnetic Resonance Report ---
MRI OF THE LEFT FOOT WITH WITHOUT CONTRAST CLINICAL HISTORY: great toe infection/ulcer; 1st MTP ulcer COMPARISON STUDY: Left first toe radiographs June 14, 2020. TECHNIQUE: Utilizing 1.5 Chely magnet and dedicated coil, multiplanar, multi echo imaging of the left forefoot was performed pre and postcontrast administration. Intravenous injection of 6.5 cc of Gadav ist was uneventful. FINDINGS: Note is made of moderate marrow edema within the distal medial aspect of the proximal phala nx of the left first toe. There is diminished T1 marrow signal consistent with osteomyelitis. Associa sebastian enhancement is noted. There is also marrow edema within the medial base of the distal phalanx of the left first toe as well as within the medial aspect of the left first metatarsal head in the media l base of the first proximal phalanx. However, T1 signal is preserved at these sites and therefore th e site favor osteitis. Note is made of a left first metatarsophalangeal joint effusion with synovial enhancement. No additional joint effusions are present. A wound overlying the plantar medial aspect o f the left first metatarsophalangeal joint is noted. Soft tissue edema left first toe represents cell ulitis. No additional fluid collections are present. Tarsometatarsal joints are intact. No additional sites for osteomyelitis are noted. IMPRESSION: 1. Small focus of osteomyelitis within the distal medial aspect of the proximal phalanx of the left f irst toe. Additional sites of marrow edema within the left first metatarsal head, base of the proxima l phalanx of the distal phalanx consistent with osteitis. 2. Left first metatarsophalangeal joint effusion with synovial enhancement. No associated bony destru ction adjacent to the joint. This suggests synovitis and sterility cannot be assessed by MRI. 3. Wound along the plantar medial aspect of the left first metatarsophalangeal joint. Soft tissue yasmin ma consistent with cellulitis. ACT 112: Negative or not required by law. Electronically signed by: Byron Hannah M.D. 06/15/2020 2:23 PM
--- NOTE | 2020-06-15 14:50 | XCELERA ---
[id number]
[2020-06-15] MEDS ORDERED: SODIUM CHLORIDE 0.9% 250 ML IV PRN (18:38)
[2020-06-15 19:21] LABS: Hematocrit (blood only) 25.1 % (37-47); Hemoglobin 8.4 g/dL (12.0-16.0)
[2020-06-15] MEDS: VANCOMYCIN HCL 1,000 MG in SODIUM CHLORIDE 0.9% 250 ML IV SCH (19:28)
[2020-06-15 19:33] LABS: Base Excess VBG 3.4 mEq/L; HCO3 VBG 28 mmol/L; Oxygen Saturation VBG < 60.0 %; PCO2 VBG 44 mmHg (38-50); PO2 VBG 19 mmHg; pH VBG 7.43 (7.36-7.41)
[2020-06-15] MEDS: THIAMINE HCL 200 MG in SODIUM CHLORIDE 0.9% 50 ML IV SCH (19:37)
[2020-06-15 19:56] LABS: Magnesium 2.1 mg/dl (1.8-2.4)
[2020-06-15 20:01] LABS: Potassium 3.5 mmol/L (3.5-5.1)
--- NOTE | 2020-06-15 20:09 | Hospitalist Progress Note ---
Date of Service June 15, 2020 Assessment & Plan (1) Sepsis: 2nd to left foot cellulitis, gangrene, osteomyelitis, and possible septic arthritis of first MTP joint. Cont zosyn. Cont vanco. Ortho consult requested - I spoke directly with Dr Maldonado. Will need surgery this weekend. Cont IV fluids, supportive care, etc. (2) Gangrene of left foot: See above in sepsis. LLE arterial duplex study without focal occlusion of any specific vessel; di ffuse atherosclerosis noted. Cont broad-spectrum IV abx therapy. Follow blood cx's. (3) Osteomyelitis: MRI left foot -- 1. Small focus of osteomyelitis within the distal medial aspect of the proximal phalanx of the left first toe. Additional sites of marrow edema within the left first metatarsal head, base of the proximal phalanx of the distal phalanx co nsistent with osteitis. 2. Left first metatarsophalangeal joint effusion with synovial enhancement. No associated bony destruction adjacent to the joint. This suggests synovitis and sterility cannot be assessed by MRI. 3. Wound along the plantar medial aspect of the left first metatarsophalangeal joint. Soft tissue edema consistent with cellulitis. Will need surgical debridement and/or 6-week course of IV antibiotic therapy. (4) Cellulitis of great toe of left foot: Patient has a combination of cellulitis of the left great toe, a neuropathic ulcer of left great toe, and an ulcer on the plantar aspect overlying the first metatarsal head. Gangrene present left first metatarsal head region. Osteomyelitis present. Possible septic synovitis of left MTP joint, first. Cont IV zosyn with vancomycin. Echo without obvious SBE. Blood cx's neg thus far. Dr Maldonado to see - I spoke directly with him today. Partial weight-bearing left foot only. (5) Weakness of both legs: suspect 2nd to sepsis rather than spinal cord lesion, etc neuro exam wnl since admission (6) Diabetes mellitus type 2, uncontrolled: Continue lantus but adjust adjust novolog (7) Chronic alcohol use: I do believe she has some element of active withdrawal. Cont gabapentin taper. Cont etoh withdrawal protocol with PRN ativan. Thiamine 200mg IV BID. Folate 1mg IV daily. MVI. Cont telemetry. Etoh level was 0 at admission. (8) Diabetic neuropathy: Severe. Gabapentin will help this. (9) Pulmonary nodules/lesions, multiple: Seen on CT chest earlier this fall. etiology?? COVID was negative (antigen test) this admission and on past admission O2 sats stable in RA (10) Hypomagnesemia: Give 2 grams mag sulfate again today with repeat level tonight. (11) Hyponatremia: Pseudohyponatremia from high BSG. Could also have component of volume depletion. Improving with isotonic fluids. BMP am. (12) Acute hepatitis: LFTs are chronically elevated, but much worse this admission. INR also worse at 1.6. Suspect Acute alcoholic hepatitis. HepC Ab 05/15 was negative. Madrey's discriminant function score 20 -- defer on steroids. Vitamin K for coagulopathy given on day of admission. Supportive care. Repeat labs am. (13) Coagulopathy: 2nd to acute hepatitis (suspected). vitamin K 5mg IV x 1 at admission. INR 1.3 and improved today. repeat INR am. (14) Hypertension: Cont metoprolol xl. Cont BETZAIDA. (15) Acute metabolic encephalopathy: 2nd etoh withdrawal? sepsis? combo? supportive care. (16) DVT prophylaxis: Despite coagulopathy she is at high risk of DVT. however her Hb dropped since admission thus place the heparin on hold remains quite ill Admission and Anticipated Discharge Date Admission Date: June 14, 2020 Subjective tele wnl overnight during the visit the patient had spilled her coffee all over the floor she had multiple requests while I was there regarding her bedside tray, the lights, etc she c/o feeling "drugged" - "what are you giving me?" she simply feels unwell, shaky appetite not as good today has some pain of left foot oddly she kept asking "what about my right foot?" "How is it?" Review of Systems Constitutional: + fever, + fatigue and + anorexia Respiratory: + cough Cardiovascular: no chest pain Gastrointestinal: no abdominal pain, no nausea and no vomiting Physical Exam Constitutional: + ill appearing and + frail appearing; + not well developed, + not well nourished, no acute distress and + not healthy appearing ENMT: Mouth: + poor dentition Neck: trachea midline, no thyromegaly Respiratory: normal respiratory effort, lungs clear to auscultation Cardiovascular: Rate/Rhythm: regular rate and regular rhythm Heart Sounds: normal S1, normal S2 and + murmur (3/6 holosystolic RUSB/apex) Vessels: posterior tibial pulses present (1+ b/l ) and dorsalis pedis pulses present (1+ b/l); no JVD Gastrointestinal (Abdomen): Inspection/Auscultation: normal bowel sounds; abdomen not distended Percussion/Palpation: abdomen soft and + hepatomegaly; abdomen nontender Skin: odor emanating from first metatarsal head region, left foot; ulcer medial aspect left great toe; erythema left great toe is mildly improved today; right foot, plantar aspect, with multiple macular lesions on forefoot. numerous cuts and abrasions on legs. tattoos present arms. pallor present. Neurologic: Motor/Sensory: + tremor Psychiatric: Orientation: alert, oriented to person and oriented to place; + not oriented to time Lymphatic: no cervical lymphadenopathy Results & Data Results & Data ([facility]) Vital Signs (Past 12 Hours) Vital Signs Temp Pulse Resp BP BP Pulse Ox 06/15/20 19:24 39.5 C H 76 18 126/69 97 06/15/20 15:59 36.3 C L 65 18 128/77 97 06/15/20 11:57 37.2 C 63 20 173/73 H 95 K low mag low Hb 7.7; repeat 8.4 Cr wnl blood cx's neg echo - no endocarditis doppler arterial of LLE noted MRI left foot with osteomyelitis PG Care Time/CCT Total # of Minutes Spent Total Time Spent with Patient: Total time spent is greater than 50% in coordination of care (as documented) at patient's floor/unit and/or counseling patient: Coding Level of Care Code 95046 Subseq Hosp Care Lvl 3 Diagnoses Sepsis A41.9 Gangrene of left foot I96 Osteomyelitis M86.9 Cellulitis of great toe of left foot L03.032 Weakness of both legs R29.898 Diabetes mellitus type 2, uncontrolled E11.65 Glycemic state: with hyperglycemia Chronic alcohol use Z72.89 Diabetic neuropathy E11.42 Diabetes mellitus complication detail: diabetic polyneuropathy Diabetes mellitus type: type 2 Pulmonary nodules/lesions, multiple R91.8 Hypomagnesemia E83.42 Hyponatremia E87.1 Acute hepatitis B17.9 Coagulopathy D68.9 Hypertension I10 Hypertension type: essential hypertension Acute metabolic encephalopathy G93.41 DVT prophylaxis Z29.9 (1) Diabetic neuropathy Diabetes mellitus complication detail: diabetic polyneuropathy Diabetes mellitus type: type 2 Qualified Code(s): E11.42 - Type 2 diabetes mellitus with diabetic polyneuropathy (2) Diabetes mellitus type 2, uncontrolled Glycemic state: with hyperglycemia Qualified Code(s): E11.65 - Type 2 diabetes mellitus with hyperglycemia (3) Hypertension Hypertension type: essential hypertension Qualified Code(s): I10 - Essential (primary) hypertension
[2020-06-15] MEDS ORDERED: CARBOHYDRATES FOR HYPOGLYCEMIA PO ONE (20:32)
[2020-06-15] MEDS ORDERED: GLUCAGON FOR INJ 1 MG VIAL IM PRN (20:45)
[2020-06-15] MEDS ORDERED: GLUCOSE 40% GEL 15 GM TUBE PO PRN (20:45)
[2020-06-15] MEDS ORDERED: DEXTROSE 50% 50 ML SYRINGE IV PRN (20:45)
[2020-06-15] MEDS ORDERED: GLUCOSE 10 TABS/TUBE PO PRN (20:45)
[2020-06-15] MEDS: LACTULOSE SYRUP 10 GM/15 ML BTL 960 ML PO SCH (21:00)
[2020-06-16] MEDS: PIPERACILLIN/TAZOBACTAM 3.375 GM in DEXTROSE 5% 100 ML IV SCH ×3 (02:21→18:01)
[2020-06-16] MEDS: VANCOMYCIN HCL 1,000 MG in SODIUM CHLORIDE 0.9% 250 ML IV SCH ×3 (03:55→21:40)
[2020-06-16] MEDS: GABAPENTIN 600 MG TAB PO SCH ×2 (05:49→13:08)
[2020-06-16 07:48] LABS: Hematocrit (blood only) 23.2 % (37-47); Hemoglobin 7.7 g/dL (12.0-16.0); Mean Corpuscular Hemoglobin 33.3 pg (25-34); Mean Corpuscular Hgb Conc 33.2 g/dL (32-36); Mean Corpuscular Volume 100.4 fL (80-100); Mean Platelet Volume 10.4 fL (7.4-10.4); Nucleated RBC # (auto) 0.06 K/uL (0-0); Nucleated RBC % (auto) 0.4 %; Platelet Count 223 K/uL (130-400); RDW Coefficient of Variation 15.2 % (11.5-14.5); Red Blood Count 2.31 M/uL (4.2-5.4)
[2020-06-16 07:57] LABS: INR 1.3 (0.9-1.1); Prothrombin Time 13.5 Seconds (9.0-12.0)
[2020-06-16] MEDS: CHOLECALCIFEROL 1,000 UNITS 25 MCG TAB PO SCH (08:12)
[2020-06-16] MEDS: lisinopril 10 MG TAB PO SCH (08:13)
[2020-06-16] MEDS: ADVANCED PROBIOTIC 1250 MG CAPSULE PO SCH (08:13)
[2020-06-16] MEDS: POTASSIUM CHLORIDE CRTAB 20 MEQ TABCR PO SCH ×3 (08:13→21:42)
[2020-06-16] MEDS: METOPROLOL SUCC 25MG EXT REL TAB PO SCH (08:13)
[2020-06-16] MEDS: LACTULOSE SYRUP 10 GM/15 ML BTL 960 ML PO SCH (08:13)
[2020-06-16] MEDS: INSULIN ASPART 100 UNITS/ML 3 ML PEN SC SCH ×4 (08:14→21:50)
[2020-06-16] MEDS: FOLIC ACID 1 MG in SYRINGE 9.8 ML IV SCH (08:14)
[2020-06-16] MEDS: INSULIN GLARGINE SOLOSTAR 100 UNITS/ML 3 ML PEN SC SCH ×2 (08:15→21:51)
[2020-06-16 08:16] LABS: BUN Creatinine Ratio 16.3 (10-20); Calcium 8.1 mg/dl (8.5-10.1); Creatinine Clr Calc Pharmacy 85.9 ml/min; Est GFR (African American) 112.1; Est GFR (Non-African American) 96.7; Potassium 3.8 mmol/L (3.5-5.1)
[2020-06-16] MEDS: THIAMINE HCL 200 MG in SODIUM CHLORIDE 0.9% 50 ML IV SCH ×2 (08:30→21:41)
[2020-06-16 09:49] LABS: Appearance Urine Cloudy (Clear); Bacteria Urine Automated Negative (Negative); Blood Urine Trace (Negative); Color Urine Dark Yellow; Glucose Urine UA 1+ (Negative); Ketones Urine Trace (Negative); Leukocyte Esterase Urine 2+ (Negative); Nitrite Urine Negative (Negative); Protein Urine 2+ (Negative); Specific Gravity Urine 1.038 (1.000-1.030); Urobilinogen Urine Negative (Negative); WBC Urine Automated >30 /hpf (0-5)
[2020-06-16 09:50] LABS: Bilirubin Urine Negative (Negative); Ictotest Urine Negative (Negative)
[2020-06-16] MEDS ORDERED: SODIUM CHLORIDE 0.9% 250 ML IV PRN (14:28)
--- NOTE | 2020-06-16 20:59 | Hospitalist Progress Note ---
Date of Service June 16, 2020 Assessment & Plan (1) Sepsis: 2nd to left foot cellulitis, gangrene, osteomyelitis, and possible septic arthritis of first MTP joint. Cont zosyn. Cont vanco. Ortho consult with Dr Maldonado - to OR tomorrow for left foot surgery. NPO after MN for such. Due to fevers in the midst of zosyn/vanco I performed a 2nd COVID test that was negative. Suspect fevers are due to worsening gangrene. Echo without endocarditis. Blood cx's negative to date. (2) Gangrene of left foot: See above in sepsis. LLE arterial duplex study without focal occlusion of any specific vessel; diffuse atherosclerosis noted. Cont broad-spectrum IV abx therapy. Follow blood cx's. To OR tomorrow with Dr Maldonado. (3) Osteomyelitis: MRI left foot -- 1. Small focus of osteomyelitis within the distal medial aspect of the proximal phalanx of the left first toe. Additional sites of marrow edema within the left first metatarsal head, base of the proximal phalanx of the distal phalanx consistent with osteitis. 2. Left first metatarsophalangeal joint effusion with synovial enhancement. No associated bony destruction adjacent to the joint. This suggests synovitis and sterility cannot be assessed by MRI. 3. Wound along the plantar medial aspect of the left first metatarsophalangeal joint. Soft tissue edema consistent with cellulitis. Will need surgical debridement and/or 6-week course of IV antibiotic therapy. (4) Cellulitis of great toe of left foot: Patient has a combination of cellulitis of the left great toe, a neuropathic ulcer of left great toe, and an ulcer on the plantar aspect overlying the first metatarsal head. Gangrene present left first metatarsal head region. This looks worse today Osteomyelitis present. Possible septic synovitis of left MTP joint, first. Cont IV zosyn with vancomycin. Echo without obvious SBE. Blood cx's neg thus far. Partial weight-bearing left foot only. (5) Weakness of both legs: suspect 2nd to sepsis rather than spinal cord lesion, etc neuro exam wnl since admission (6) Diabetes mellitus type 2, uncontrolled: change lantus to BID dosing adjust novolog (7) Chronic alcohol use: I do believe she has some element of active withdrawal. Cont gabapentin taper. Cont etoh withdrawal protocol with PRN ativan. Thiamine 200mg IV BID. Folate 1mg IV daily. MVI. Cont telemetry. Etoh level was 0 at admission. (8) Diabetic neuropathy: Severe. Gabapentin will help this. (9) Pulmonary nodules/lesions, multiple: Seen on CT chest earlier this fall. etiology?? COVID was negative (antigen test) this admission and on past admission O2 sats stable in RA repeat COVID PCR negative this am (10) Hypomagnesemia: repleted and resolved (11) Hyponatremia: Pseudohyponatremia from high BSG. Could also have component of volume depletion. Had improved with isotonic fluids. BMP am. (12) Acute hepatitis: LFTs are chronically elevated, but much worse this admission. INR also worse at 1.6. Suspect Acute alcoholic hepatitis. HepC Ab 05/15 was negative. Madrey's discriminant function score 20 -- defer on steroids. Vitamin K for coagulopathy given on day of admission. Supportive care. Repeat labs am. (13) Coagulopathy: 2nd to acute hepatitis (suspected). vitamin K 5mg IV x 1 at admission. INR 1.3 and improved today. repeat INR today 1.3 (14) Hypertension: Cont metoprolol xl. HOLD BETZAIDA - BPs modestly low this am. (15) Acute metabolic encephalopathy: 2nd etoh withdrawal? sepsis? combo? supportive care. (16) Anemia: 7.7 Hb today t/c 2 units PRBCs Tx 1 unit repeat CBC am fecal occult blood test ordered (17) DVT prophylaxis: Despite coagulopathy she is at high risk of DVT. however her Hb dropped since admission thus place the heparin on hold remains quite ill Admission and Anticipated Discharge Date Admission Date: June 14, 2020 Subjective Patient a bit confused this am. she didn't realize that she ran a fever all night last night. c/o left foot pain. denies dyspnea, orthopnea, or change in her chronic cough. no abd pain. eating well. telemetry overnight wnl. feels less "foggy" than yesterday. still quite shaky. Review of Systems Constitutional: + fatigue Respiratory: + cough; no sputum production Cardiovascular: no chest pain and no orthopnea Gastrointestinal: no abdominal pain Physical Exam Constitutional: + ill appearing and + frail appearing; + not well developed, + not well nourished, no acute distress and + not healthy appearing ENMT: Mouth: + poor dentition; no oral mucosal abnormality and oral mucous membranes not dry Respiratory: normal respiratory effort, lungs clear to auscultation Cardiovascular: Rate/Rhythm: regular rate and regular rhythm Heart Sounds: normal S1, normal S2 and + murmur (3/6 holosystolic RUSB/apex) Vessels: posterior tibial pulses present (1+ b/l ) and dorsalis pedis pulses present (1+ b/l); no JVD Gastrointestinal (Abdomen): Inspection/Auscultation: normal bowel sounds; abdomen not distended Percussion/Palpation: abdomen soft and + hepatomegaly; abdomen nontender Skin: left foot -first toe cellulitis improved, but first metatarsal head gangrene is worse --skin breakdown occurring now on side of foot; foul odor present; left great toe ulcer slightly worse Neurologic: Motor/Sensory: + tremor Psychiatric: Orientation: alert, oriented to person and oriented to place; + not oriented to time Results & Data Results & Data ([facility]) Vital Signs (Past 12 Hours) Vital Signs Temp Pulse Pulse Pulse Resp BP BP 06/16/20 19:44 36.9 C 64 19 06/16/20 17:59 37.4 C 64 18 103/64 06/16/20 17:30 37.2 C 66 18 137/82 06/16/20 17:00 36.8 C 62 18 131/73 06/16/20 16:30 65 20 109/55 L 06/16/20 16:15 37.6 C H 63 18 123/75 06/16/20 15:42 36.8 C 63 18 120/71 06/16/20 15:40 36.8 C 63 18 114/7 L 06/16/20 15:24 36.6 C 64 18 105/58 L 06/16/20 15:09 36.4 C L 64 18 112/67 06/16/20 15:01 36.4 C L 64 18 06/16/20 11:53 36.8 C 72 19 115/65 BP Pulse Ox 06/16/20 19:44 134/75 95 06/16/20 17:59 96 06/16/20 17:30 96 06/16/20 17:00 96 06/16/20 16:30 94 06/16/20 16:15 94 06/16/20 15:42 96 06/16/20 15:40 96 06/16/20 15:24 94 06/16/20 15:09 94 06/16/20 15:01 112/67 94 06/16/20 11:53 95 Laboratory Results Laboratory Results - last 24 hr 06/15/20 06/15/20 06/16/20 19:10 22:46 02:09 WBC RBC Hgb Hct MCV MCH MCHC RDW Std Deviation RDW Coeff of Francis Plt Count MPV Absolute Nucleated RBC Nucleated RBC % (auto) PT INR Sodium Potassium Chloride Carbon Dioxide Anion Gap BUN Creatinine Est Cr Clr Drug Dosing Est GFR ( Amer) Est GFR (Non-Af Amer) BUN/Creatinine Ratio Glucose POC Glucose 159 H 217 H Calcium Urine Color Urine Appearance Urine pH Ur Specific [place] Urine Protein Urine Glucose (UA) Urine Ketones Urine Blood Urine Nitrite Urine Bilirubin Urine Urobilinogen Ur Leukocyte Esterase Urine WBC (Auto) Urine RBC (Auto) U Hyaline Cast (Auto) U Epithel Cells (Auto) Urine Bacteria (Auto) Urine Yeast COVID-19 Eval Order SARS-CoV-2, RNA, NAAT Blood Type B Positive Blood Type Recheck Antibody Screen NEGATIVE Crossmatch See Detail 06/16/20 06/16/20 06/16/20 06:53 06:53 06:53 WBC 15.10 H RBC 2.31 L Hgb 7.7 L Hct 23.2 L MCV 100.4 H MCH 33.3 MCHC 33.2 RDW Std Deviation 54.0 H RDW Coeff of Francis 15.2 H Plt Count 223 MPV 10.4 Absolute Nucleated RBC 0.06 H Nucleated RBC % (auto) 0.4 PT 13.5 H INR 1.3 H Sodium 131 L Potassium 3.8 Chloride 99 Carbon Dioxide 26 Anion Gap 6.0 BUN 11 Creatinine 0.66 Est Cr Clr Drug Dosing 85.9 Est GFR ( Amer) 112.1 Est GFR (Non-Af Amer) 96.7 BUN/Creatinine Ratio 16.3 Glucose 211 H POC Glucose Calcium 8.1 L Urine Color Urine Appearance Urine pH Ur Specific [place] Urine Protein Urine Glucose (UA) Urine Ketones Urine Blood Urine Nitrite Urine Bilirubin Urine Urobilinogen Ur Leukocyte Esterase Urine WBC (Auto) Urine RBC (Auto) U Hyaline Cast (Auto) U Epithel Cells (Auto) Urine Bacteria (Auto) Urine Yeast COVID-19 Eval Order SARS-CoV-2, RNA, NAAT Blood Type Blood Type Recheck Antibody Screen Crossmatch 06/16/20 06/16/20 06/16/20 06:53 07:38 09:15 WBC RBC Hgb Hct MCV MCH MCHC RDW Std Deviation RDW Coeff of Francis Plt Count MPV Absolute Nucleated RBC Nucleated RBC % (auto) PT INR Sodium Potassium Chloride Carbon Dioxide Anion Gap BUN Creatinine Est Cr Clr Drug Dosing Est GFR ( Amer) Est GFR (Non-Af Amer) BUN/Creatinine Ratio Glucose POC Glucose 251 H Calcium Urine Color Urine Appearance Urine pH Ur Specific [place] Urine Protein Urine Glucose (UA) Urine Ketones Urine Blood Urine Nitrite Urine Bilirubin Urine Urobilinogen Ur Leukocyte Esterase Urine WBC (Auto) Urine RBC (Auto) U Hyaline Cast (Auto) U Epithel Cells (Auto) Urine Bacteria (Auto) Urine Yeast COVID-19 Eval [facility] [place] SARS-[place]2, RNA, NAAT Blood Type Blood Type Recheck B Positive Antibody Screen Crossmatch 06/16/20 06/16/20 06/16/20 09:15 09:35 11:20 WBC RBC Hgb Hct MCV MCH MCHC RDW Std Deviation RDW Coeff of Francis Plt Count MPV Absolute Nucleated RBC Nucleated RBC % (auto) PT INR Sodium Potassium Chloride Carbon Dioxide Anion Gap BUN Creatinine Est Cr Clr Drug Dosing Est GFR ( Amer) Est GFR (Non-Af Amer) BUN/Creatinine Ratio Glucose POC Glucose 413 H* Calcium Urine Color Dark Yellow Urine Appearance Cloudy A Urine pH 5.0 Ur Specific [place] 1.038 H Urine Protein 2+ H Urine Glucose (UA) 1+ H Urine Ketones Trace H Urine Blood Trace H Urine Nitrite Negative Urine Bilirubin Negative Urine Urobilinogen Negative Ur Leukocyte Esterase 2+ H Urine WBC (Auto) >30 H Urine RBC (Auto) 5-10 H U Hyaline Cast (Auto) 1-5 U Epithel Cells (Auto) 5-10 H Urine Bacteria (Auto) Negative Urine Yeast Not Reportable COVID-19 Eval Order SARS-CoV-2, RNA, NAAT NEGATIVE Blood Type Blood Type Recheck Antibody Screen Crossmatch 06/16/20 06/16/20 06/16/20 11:21 13:25 13:25 WBC RBC Hgb Hct MCV MCH MCHC RDW Std Deviation RDW Coeff of Francis Plt Count MPV Absolute Nucleated RBC Nucleated RBC % (auto) PT INR Sodium Potassium Chloride Carbon Dioxide Anion Gap BUN Creatinine Est Cr Clr Drug Dosing Est GFR ( Amer) Est GFR (Non-Af Amer) BUN/Creatinine Ratio Glucose POC Glucose 369 H* 368 H* 388 H* Calcium Urine Color Urine Appearance Urine pH Ur Specific [place] Urine Protein Urine Glucose (UA) Urine Ketones Urine Blood Urine Nitrite Urine Bilirubin Urine Urobilinogen Ur Leukocyte Esterase Urine WBC (Auto) Urine RBC (Auto) U Hyaline Cast (Auto) U Epithel Cells (Auto) Urine Bacteria (Auto) Urine Yeast COVID-19 Eval Order SARS-CoV-2, RNA, NAAT Blood Type Blood Type Recheck Antibody Screen Crossmatch 06/16/20 06/16/20 16:28 20:35 WBC RBC Hgb Hct MCV MCH MCHC RDW Std Deviation RDW Coeff of Francis Plt Count MPV Absolute Nucleated RBC Nucleated RBC % (auto) PT INR Sodium Potassium Chloride Carbon Dioxide Anion Gap BUN Creatinine Est Cr Clr Drug Dosing Est GFR ( Amer) Est GFR (Non-Af Amer) BUN/Creatinine Ratio Glucose POC Glucose 322 H* 229 H Calcium Urine Color Urine Appearance Urine pH Ur Specific [place] Urine Protein Urine Glucose (UA) Urine Ketones Urine Blood Urine Nitrite Urine Bilirubin Urine Urobilinogen Ur Leukocyte Esterase Urine WBC (Auto) Urine RBC (Auto) U Hyaline Cast (Auto) U Epithel Cells (Auto) Urine Bacteria (Auto) Urine Yeast COVID-19 Eval Order SARS-CoV-2, RNA, NAAT Blood Type Blood Type Recheck Antibody Screen Crossmatch PG Care Time/CCT Total # of Minutes Spent Total Time Spent with Patient: Total time spent is greater than 50% in coordination of care (as documented) at patient's floor/unit and/or counseling patient: Coding Level of Care Code 04977 Subseq Hosp Care Lvl 3 Diagnoses Sepsis A41.9 Gangrene of left foot I96 Osteomyelitis M86.9 Cellulitis of great toe of left foot L03.032 Weakness of both legs R29.898 Diabetes mellitus type 2, uncontrolled E11.65 Glycemic state: with hyperglycemia Chronic alcohol use Z72.89 Diabetic neuropathy E11.42 Diabetes mellitus complication detail: diabetic polyneuropathy Diabetes mellitus type: type 2 Pulmonary nodules/lesions, multiple R91.8 Hypomagnesemia E83.42 Hyponatremia E87.1 Acute hepatitis B17.9 Coagulopathy D68.9 Hypertension I10 Hypertension type: essential hypertension Acute metabolic encephalopathy G93.41 Anemia D64.9 DVT prophylaxis Z29.9 (1) Diabetic neuropathy Diabetes mellitus complication detail: diabetic polyneuropathy Diabetes mellitus type: type 2 Qualified Code(s): E11.42 - Type 2 diabetes mellitus with diabetic polyneuropathy (2) Diabetes mellitus type 2, uncontrolled Glycemic state: with hyperglycemia Qualified Code(s): E11.65 - Type 2 diabetes mellitus with hyperglycemia (3) Hypertension Hypertension type: essential hypertension Qualified Code(s): I10 - Essential (primary) hypertension
[2020-06-17] MEDS: GABAPENTIN 600 MG TAB PO SCH ×2 (00:04→12:30)
--- NOTE | 2020-06-17 00:26 | Consultation Report ---
DATE OF CONSULTATION: 06/16/2020 PERTINENT HISTORY: This is a 59-year-old woman well known to the medical service, who presents with pain and swelling of the left foot with complaints of difficulty walking saying that her "thighs don't want to work" with concerns about her neuropathy. She is a poor historian. She was admitted to the medical service of Dr. Shabazz and orthopedics was consulted. There was obvious ulceration and eschar on the plantar aspect of the left foot. The patient was seen at bedside, eating her dinner, sitting upright. Nurse was present. No current complaints. PAST MEDICAL HISTORY: Acute head injury, hypernatremia, avulsed toenail, diabetes mellitus type 2 uncontrolled, diabetic neuropathy, hypertension, hypokalemia, hypomagnesemia, tinea pedis, chronic alcoholism. PAST SURGICAL HISTORY: Noncontributory. ALLERGIES: No known drug allergies. MEDICATIONS: Metoprolol, insulin, metformin, vitamin D3, glimepiride, lisinopril, loperamide. SOCIAL HISTORY: She smokes half pack a day of cigarettes. She drinks alcohol, unknown quantity as the patient is a poor historian, at least shots per day. Unknown drug use. She had been living with her sister, occasionally living in a truck, is disabled. She has 1 son that is known. PHYSICAL EXAMINATION: This is a moderately disheveled appearing 59-year-old woman sitting upright in her hospital room bed, eating her dinner, with a nurse present. She is relatively alert and oriented. Poor historian. Focused examination of the left foot demonstrates skin is dry and atrophic appearing. Dorsalis pedis and posterior pulses are 1/4. Sensation is poor distal to the mid foot, bilateral feet. Left foot demonstrates a 2.5 x 5.5 cm area of eschar and superficial necrosis. There is a secondary area over the first interphalangeal joint approximately 2 cm in diameter, similar consistency hard eschar. Local cellulitis. Local warmth. No obvious abscess or fluctuance or discharge or drainage. LABORATORIES AND IMAGING: Reviewed demonstrating large exostosis of the distal phalanx and proximal phalanx of great toe with hallux interphalangeus. No obvious fractures. No obvious osteomyelitis. However, on the MRI, demonstrates what appears to be osteomyelitis of the proximal phalanx, distal medial aspect of the left great toe with local cellulitis and other focal areas of what appears to be osteitis. Soft tissue ulcer. No obvious fractures. There is increased signal in the medial sesamoid without soft tissue coverage consistent with osteitis, possible osteomyelitis. IMPRESSION AND PLAN: 1. Left foot neuropathic ulcer 2.5 x 5.5 cm, first metatarsal head and medial sesamoid region. 2. Ulcer of great toe, interphalangeal joint region, 2 cm diameter plantar medial. 2. Cellulitis of the left foot. 4. Osteomyelitis, proximal phalanx involving the distal medial aspect of left great toe and possible medial sesamoid osteomyelitis. RECOMMENDATIONS: The patient will be scheduled for surgical debridement tomorrow, n.p.o. after midnight. I discussed the care of this patient with Dr. Shabazz and he is in agreement. Debridement of the neuropathic ulcers x2, possible resection of medial sesamoid, possible partial exostectomy of the proximal phalanx, left great toe, distal medial aspect. Thank you for the opportunity to consult in the care of this patient.
[2020-06-17] MEDS: PIPERACILLIN/TAZOBACTAM 3.375 GM in DEXTROSE 5% 100 ML IV SCH ×3 (03:24→18:18)
[2020-06-17] MEDS ORDERED: VANCOMYCIN TROUGH ONE (03:30)
[2020-06-17 03:44] LABS: Hematocrit (blood only) 27.9 % (37-47); Hemoglobin 9.3 g/dL (12.0-16.0); Mean Corpuscular Hemoglobin 32.5 pg (25-34); Mean Corpuscular Hgb Conc 33.3 g/dL (32-36); Mean Corpuscular Volume 97.6 fL (80-100); Mean Platelet Volume 10.4 fL (7.4-10.4); Platelet Count 225 K/uL (130-400); RDW Coefficient of Variation 17.3 % (11.5-14.5); RDW Standard Deviation 59.7 fL (36.4-46.3); Red Blood Count 2.86 M/uL (4.2-5.4); White Blood Count 15.35 K/uL (4.8-10.8)
[2020-06-17 04:10] LABS: BUN Creatinine Ratio 19.9 (10-20); Calcium 7.5 mg/dl (8.5-10.1); Creatinine Clr Calc Pharmacy 84.6 ml/min; Est GFR (African American) 111.5; Est GFR (Non-African American) 96.2; Potassium 4.5 mmol/L (3.5-5.1)
[2020-06-17] MEDS: VANCOMYCIN HCL 1,000 MG in SODIUM CHLORIDE 0.9% 250 ML IV SCH (04:24)
[2020-06-17] MEDS ORDERED: BACITRACIN INJ 50,000 UNIT VIAL ONE (08:25)
[2020-06-17] MEDS ORDERED: VANCOMYCIN HCL 1000MG/20ML VIAL ONE (08:25)
[2020-06-17] MEDS ORDERED: GENTAMICIN SULFATE 40 MG/ML 2 ML VIAL ONE (08:26)
[2020-06-17] MEDS ORDERED: BUPIVACAINE 0.5 % 5 MG/1 ML MPF 30ML VIAL ONE (08:27)
[2020-06-17] MEDS: INSULIN GLARGINE SOLOSTAR 100 UNITS/ML 3 ML PEN SC SCH ×2 (08:30→22:13)
[2020-06-17] MEDS: INSULIN ASPART 100 UNITS/ML 3 ML PEN SC SCH ×4 (08:31→22:13)
[2020-06-17] MEDS: ADVANCED PROBIOTIC 1250 MG CAPSULE PO SCH (08:32)
[2020-06-17] MEDS: CHOLECALCIFEROL 1,000 UNITS 25 MCG TAB PO SCH (08:32)
[2020-06-17] MEDS: LACTULOSE SYRUP 10 GM/15 ML BTL 960 ML PO SCH (08:32)
[2020-06-17] MEDS: POTASSIUM CHLORIDE CRTAB 20 MEQ TABCR PO SCH ×3 (08:32→22:12)
[2020-06-17] MEDS: THIAMINE HCL 200 MG in SODIUM CHLORIDE 0.9% 50 ML IV SCH ×2 (08:35→22:15)
[2020-06-17] MEDS: FOLIC ACID 1 MG in SYRINGE 9.8 ML IV SCH (08:37)
--- NOTE | 2020-06-17 08:48 | Pharmacy Report ---
Pharmacy Abx Dose Short Note - Date of Service June 17, 2020 - Assessment & Plan Assessment * 59 year old F receiving vanc + Zosyn for treatment of left foot cellulitis, gangrene, and osteomyelitis. * Day #4 of antimicrobial therapy. * Blood cultures negative. * Ortho consulted. Patient to undergo debridement today. Plan Vancomycin * Trough level of 23.2 mcg/mL is supratherapeutic * Change to 1000 mg IV every 12 hours * Goal trough level for osteo: ~20 mcg/mL * Repeat trough ordered for: 06/19 @0730 Piperacillin/tazobactam * 3.375 gm iv q 8 hr - appropriate for CrCl >20 ml/min Pharmacy will continue to follow and will adjust dose/frequency as necessary. Thank you.
--- NOTE | 2020-06-17 09:32 | Anesthesiology Consultation ---
Date of Service June 17, 2020 Assessment & Plan Chart Review Chart Review: Acceptable Risk for Surgery and Patient NOT seen in Pre Admission Testing Consults Requested none ASA ASA4 Proposed Anesthesia Anesthesia Type: General History Surgery Operation Date: 06/17/20 12:00 Proposed Procedures p Incision and Drainage Extremity(Left) - Alli Maldonado DO Height/Weight Height: 5 ft 6 in Weight: 68.3 kg Allergies Allergy/AdvReac Type Severity Reaction Status Date / Time No Known Allergies Allergy Verified 06/14/20 15:58 Medications Home Medications Medication Instructions Recorded Confirmed Last Taken metoprolol succinate 25 mg PO DAILY #30 tab 05/11/20 06/14/20 Unknown insulin glargine [Lantus U-100 20 unit SUBCUT HS 05/17/20 06/14/20 Unknown Insulin] metformin 1,000 mg PO BIDM 05/17/20 06/14/20 Unknown cholecalciferol (vitamin D3) 2,000 unit PO DAILY 06/14/20 06/14/20 Unknown [Vitamin D3] glimepiride 2 mg PO QAM 06/14/20 06/14/20 Unknown lisinopril 10 mg PO DAILY 06/14/20 06/14/20 Unknown loperamide See Rx Instructions .ROUTE 06/14/20 06/14/20 Unknown .COMPLEX PRN MDD 16 MG/24 HOURS Active Medications Generic Name Dose Route Start Last Admin Trade Name Freq PRN Reason Stop Dose Admin Gabapentin 600 mg 06/17/20 00:00 06/17/20 00:04 Gabapentin 600 Mg Tab PO 06/17/20 12:01 600 mg Q12H MARYBETH Administration Heparin Sodium (Porcine) 5,000 units 06/14/20 21:00 06/15/20 08:29 Heparin Sod 5,000 Unit/0.5 Ml Vial SQ 07/14/20 20:59 5,000 units Q12 MARYBETH Administration Lorazepam 1 mg in 2 mls @ 2 mls/min 06/14/20 20:27 06/14/20 21:30 Ativan IV 07/14/20 20:26 2 mls/min ONE PRN Administration EtoH Withdrawal AWSS 6-10 Protocol Folic Acid 1 mg/ Syringe 10 mls @ 5 mls/min 06/14/20 21:00 06/17/20 08:37 IV 07/14/20 20:59 5 mls/min QAM MARYBETH Administration Piperacillin Sod/Tazobactam 115 mls @ 28.75 mls/hr 06/15/20 03:00 06/17/20 07:30 Sod 3.375 gm/ Dextrose IV 06/22/20 02:59 Infused Q8H [facility] Infusion Protocol Thiamine HCl 200 mg/ Sodium 52 mls @ 210 mls/hr 06/15/20 21:00 06/17/20 08:50 Chloride IV 07/15/20 20:59 Infused Q12 MARYBETH Infusion Insulin Aspart 0 units 06/14/20 21:00 06/17/20 08:31 Insulin Aspart 100 Units/Ml 3 Ml Pen SC 07/14/20 20:59 6 units ACHS MARYBETH Administration Insulin Glargine 20 units 06/14/20 21:00 06/16/20 21:51 Insulin Glargine Solostar 100 Units/Ml 3 Ml Pen SC 07/14/20 20:59 20 units HS MARYBETH Administration Insulin Glargine 10 units 06/15/20 09:45 06/17/20 08:30 Insulin Glargine Solostar 100 Units/Ml 3 Ml Pen SC 07/15/20 09:44 Not Given QAM [facility] Lactobacillus Acidoph/Casei/Rhamnos 2 cap 06/15/20 09:00 06/17/20 08:32 Advanced Probiotic 1250 Mg Capsule PO 07/15/20 08:59 Not Given DAILY [facility] Lactulose 15 gm 06/15/20 20:15 06/17/20 08:32 Lactulose Syrup 10 Gm/15 Ml Btl 960 Ml PO 07/15/20 20:14 Not Given DAILY [facility] Lisinopril 10 mg 06/15/20 09:00 06/16/20 08:13 Lisinopril 10 Mg Tab PO 07/15/20 08:59 10 mg DAILY MARYBETH Administration Metoprolol Succinate 25 mg 06/14/20 20:27 06/16/20 08:13 Metoprolol Succ 25mg Ext Rel Tab PO 07/14/20 20:26 25 mg DAILY MARYBETH Administration Potassium Chloride 20 meq 06/15/20 09:40 06/17/20 08:32 Potassium Chloride Crtab 20 Meq Tabcr PO 07/15/20 09:39 Not Given TID [facility] Vitamin D 2,000 units 06/15/20 09:00 06/17/20 08:32 Cholecalciferol 1,000 Units 25 Mcg Tab PO 07/15/20 08:59 Not Given DAILY MARYBETH NPO Date Last Intake of Fluids: 06/16/20 Time Last Intake of Fluids: 23:00 Date Last Intake of Solids: 06/16/20 Time Last Intake of Solids: 23:00 Past Medical History Medical History Acute head injury Acute hyponatremia Avulsed toenail Diabetes mellitus type 2, uncontrolled Diabetic neuropathy Hypertension Hypokalemia Hypomagnesemia Tinea pedis Exercise / Class Metabolic Activity III < 4 Walking/Shop/Light housework Past Family History Family History Father Dementia in his 80s Mother , in her 70s Diabetes Past Surgical History Surgical History No pertinent past surgical history Past Anesthesia History No Hx of Anesthesia Complications and No Family Hx of Anesthesia Complications History of PONV No Hx of PONV and No Hx of Motion Sickness Social History Smoking Status: Unknown if ever smoked tobacco type: cigarettes Smoking cigarettes per day: 1/2 ppd Hx Alcohol Use: Yes Alcohol type: hard liquor alcohol intake frequency: a few times a week Alcohol Intake Frequency Comment: reports last drink 1 week ago Hx Substance Use: No substance use type: does not use Physical Exam Vital Signs Last Vital Signs Temp 37.1 C 06/17/20 08:06 Pulse 65 06/17/20 08:06 Resp 19 06/17/20 08:06 BP 176/79 H 06/17/20 08:06 Pulse Ox 93 06/17/20 08:06 Testing Laboratory Results 06/17/20 03:34 06/17/20 03:34 PT 13.5 Seconds (9.0-12.0) H 06/16/20 06:53 INR 1.3 (0.9-1.1) H 06/16/20 06:53 APTT 26.9 Seconds (21.0-31.0) 06/14/20 13:56 Urine Color Dark Yellow 06/16/20 09:35 Urine Appearance Cloudy (Clear) A 06/16/20 09:35 Urine pH 5.0 (4.5-7.5) 06/16/20 09:35 Ur Specific Talmage 1.038 (1.000-1.030) H 06/16/20 09:35 Urine Protein 2+ (Negative) H 06/16/20 09:35 Urine Glucose (UA) 1+ (Negative) H 06/16/20 09:35 Urine Ketones Trace (Negative) H 06/16/20 09:35 Urine Nitrite Negative (Negative) 06/16/20 09:35 Ur Leukocyte Esterase 2+ (Negative) H 06/16/20 09:35 Urine WBC (Auto) >30 /hpf (0-5) H 06/16/20 09:35 Urine RBC (Auto) 5-10 /hpf (0-4) H 06/16/20 09:35 U Hyaline Cast (Auto) 1-5 /lpf (0-5) 06/16/20 09:35 U Epithel Cells (Auto) 5-10 /lpf (0-5) H 06/16/20 09:35 Urine Bacteria (Auto) Negative (Negative) 06/16/20 09:35 Blood Type B Positive 06/15/20 19:10 Antibody Screen NEGATIVE 06/15/20 19:10 06/14/20 18:57 Aerobic Blood Culture - Preliminary Blood No growth in Aerobic bottle after 48 hours. Anaerobic Blood Culture - Preliminary No growth in Anaerobic bottle after 48 hours. 06/14/20 18:57 Aerobic Blood Culture - Preliminary Blood No growth in Aerobic bottle after 48 hours. Anaerobic Blood Culture - Preliminary No growth in Anaerobic bottle after 48 hours. 06/17/20 06/17/20 07:40 02:30 POC Glucose 245 H 240 H Electrocardiogram Date: 06/14/20 Findings: + NSR @ (at 75) Echocardiogram Date: 06/15/20 EF: 60% LV Function: normal RWMA: + none Other Findings: + LVH (mild) Valvular Disease: + MR (mild) mild tr
[2020-06-17] MEDS ORDERED: ONDANSETRON INJ 2 MG/ML 2 ML VIAL ONE (09:35)
[2020-06-17] MEDS ORDERED: PROPOFOL IV EMULSION 10 MG/ML 20 ML VIAL IV ONE (09:35)
[2020-06-17] MEDS ORDERED: LIDOCAINE HCL 2% 2 ML VIAL/AMP(20MG/ML) INFIL ONE (09:35)
[2020-06-17] MEDS ORDERED: DEXAMETHASONE SOD INJ 4 MG/ML VIAL ONE (09:35)
[2020-06-17] MEDS ORDERED: fentaNYL citrate 100 MCG/2 ML VIAL IV PRN (09:36)
[2020-06-17] MEDS ORDERED: NALOXONE HCL 0.4 MG/1 ML VIAL/CARP IV PRN ×2 (09:36→12:04)
[2020-06-17] MEDS ORDERED: MIDAZOLAM HCL 1 MG/ML 2ML VIAL ONE ×2 (09:36→10:34)
[2020-06-17] MEDS ORDERED: FLUMAZENIL 0.1 MG/1 ML 10 ML VIAL IV PRN (09:36)
[2020-06-17] MEDS ORDERED: fentaNYL citrate 100 MCG/2 ML VIAL ONE (09:36)
[2020-06-17] MEDS ORDERED: PROMETHAZINE HCL 12.5 MG in SODIUM CHLORIDE 0.9% 50 ML IV PRN (09:36)
[2020-06-17] MEDS ORDERED: ATROPINE SULFATE 0.1 MG/ML 10ML SYR IV PRN (09:36)
[2020-06-17] MEDS ORDERED: ONDANSETRON INJ 2 MG/ML 2 ML VIAL IV PRN ×2 (09:36→12:04)
[2020-06-17] MEDS ORDERED: LABETALOL HCL IV 5 MG/ML 20ML IV PRN (09:36)
[2020-06-17] MEDS ORDERED: ePHEDrine sulfate 50 MG/ML AMP IV PRN (09:36)
--- NOTE | 2020-06-17 10:24 | History & Physical Bridge Note ---
Date of Service June 17, 2020 History & Physical Bridge Note I have examined the patient, reviewed the History & Physical and in the interval since the performance of the History & Physical I have noted the following changes of clinical significance: no changes noted
[2020-06-17] MEDS ORDERED: METOCLOPRAMIDE HCL INJ 5 MG/ML 2 ML VIAL ONE (10:38)
--- NOTE | 2020-06-17 11:36 | Post Operative Brief Note ---
Immediate Post Op Note v1 Date of Surgery June 17, 2020 Pre & Post Diagnosis Operation Date: 06/17/20 12:00 Pre-Op Diagnosis: Left great toe medial and plantar ulcers X2 with gangrene Neuropathic ulcer 4cm x 3cm x 0.4cm first MTPJ Neuropathic ulcer 12mm x 14mm x 3mm first IPJ Left FHL septic tenosynovitis Post-Op Diagnosis: Left great toe ulcer with gangrene x 2 sites great toe Left FHL septic tenosynovitis Neuropathic ulcer 4cm x 3cm x 0.4cm first MTPJ Neuropathic ulcer 12mm x 14mm x 3mm first IPJ Necrosis of ulcers including skin, subcutaneous tissue, fascia and periosteum I identified the patient and participated in the time-out.: Yes Procedure Operation Date: 06/17/20 12:00 Actual Procedures p Incision and Drainage abscess left first metatarsal phalangeal joint, irrigation and debridement plantar medial neuropathic ulcer first metatarsal phalangeal joint 4 cm x 3 cm x 0.4 cm, irrigation and debridement medial neuropathic ulcer first interphalangeal joint 12 mm x 14 mm x 3 mm, irrigation and debridement necrotic ulcers left great toe 2 separate sites including skin, subcutaneous tissue, fascia and periosteum, left foot tenosynovectomy septic flexor hallucis longus tendon, and (Left) - Alli Maldonado DO Surgeon Alli Maldonado DO Taper And Floater None Estimated Blood Loss 1 Findings Consistent with Post-Op Diagnosis Specimens Aerobic anaerobic Gram stain first metatarsal phalangeal joint abscess Drains Other (1/4 inch iodoform gauze x2 separate sites) Anesthesia Type MAC Regional Complications none Disposition Accompanied Patient To Recovery: No Disposition: Recovery Room
--- NOTE | 2020-06-17 11:57 | Anesthesiology Progress Note ---
Date of Service June 17, 2020 Anesthesia Post Procedure Vital Signs Vital Signs: Temp Pulse Pulse Pulse Resp BP BP 06/17/20 11:50 36.5 C 62 18 158/74 H 06/17/20 11:40 63 16 150/73 H 06/17/20 11:30 36.2 C L 67 16 06/17/20 08:30 66 06/17/20 08:06 37.1 C 65 19 06/17/20 02:31 37.0 C 66 17 161/78 H 06/17/20 00:00 67 06/16/20 23:12 37.4 C 66 17 160/79 H 06/16/20 19:44 36.9 C 64 19 06/16/20 17:59 37.4 C 64 18 103/64 06/16/20 17:30 37.2 C 66 18 137/82 06/16/20 17:00 36.8 C 62 18 131/73 06/16/20 16:30 65 20 109/55 L 06/16/20 16:15 37.6 C H 63 18 123/75 06/16/20 15:42 36.8 C 63 18 120/71 06/16/20 15:40 36.8 C 63 18 114/7 L 06/16/20 15:24 36.6 C 64 18 105/58 L 06/16/20 15:09 36.4 C L 64 18 112/67 06/16/20 15:01 36.4 C L 64 18 BP Pulse Ox 06/17/20 11:50 96 06/17/20 11:40 96 06/17/20 11:30 141/67 H 96 06/17/20 08:30 06/17/20 08:06 176/79 H 93 06/17/20 02:31 91 06/17/20 00:00 06/16/20 23:12 94 06/16/20 19:44 134/75 95 06/16/20 17:59 96 06/16/20 17:30 96 06/16/20 17:00 96 06/16/20 16:30 94 06/16/20 16:15 94 06/16/20 15:42 96 06/16/20 15:40 96 06/16/20 15:24 94 06/16/20 15:09 94 06/16/20 15:01 112/67 94 Transfer of Care Handoff Completed per policy Notes Mental Status: alert / awake / arousable Patient Amnestic to Procedure: Yes Nausea / Vomiting: adequately controlled Pain: adequately controlled Airway Patency, RR, SpO2: stable & adequate BP & HR: stable & adequate Hydration State: stable & adequate Anesthetic Complications: no major complications apparent
[2020-06-17] MEDS ORDERED: MAGNESIUM HYDROXIDE SUSP 30 ML UDC PO PRN (12:04)
[2020-06-17] MEDS ORDERED: METOCLOPRAMIDE HCL INJ 5 MG/ML 2 ML VIAL IV PRN (12:04)
[2020-06-17] MEDS ORDERED: bisacodyL 10 MG SUPP PR PRN (12:04)
--- NOTE | 2020-06-17 12:21 | Operative Report (OR) ---
DATE OF OPERATION: 06/17/2020 PREOPERATIVE DIAGNOSES: 1. Left great toe medial and plantar ulcerations with gangrene x2 separate sites. 2. Neuropathic ulcer 4 cm x 3 cm x 0.4 cm, first metatarsophalangeal joint. 3. Neuropathic ulcer medial aspect first interphalangeal joint 12 mm x 14 mm x 3 mm. 4. Left foot first metatarsophalangeal joint abscess. 5. Flexor hallucis longus septic tenosynovitis. POSTOPERATIVE DIAGNOSES: 1. Left great toe medial and plantar ulcerations with gangrene x2 separate sites. 2. Neuropathic ulcer 4 cm x 3 cm x 0.4 cm, first metatarsophalangeal joint. 3. Neuropathic ulcer medial aspect first interphalangeal joint 12 mm x 14 mm x 3 mm. 4. Left foot first metatarsophalangeal joint abscess. 5. Flexor hallucis longus septic tenosynovitis. 6. Necrosis of ulcerations 2 separate sites including skin, subcutaneous tissue, fascia and periosteum. PROCEDURES PERFORMED: 1. Incision and drainage of abscess, left first metatarsophalangeal joint. 2. Irrigation and debridement of plantar medial neuropathic ulcer, first metatarsophalangeal joint 4 cm x 3 cm x 0.4 cm. 3. Irrigation and debridement of medial neuropathic ulcer, first interphalangeal joint 12 mm x 14 mm x 3 mm. 4. Irrigation and debridement of necrotic ulcers, left great toe, 2 separate sites including skin, subcutaneous tissue, fascia and periosteum. 5. Left foot tenosynovectomy septic flexor hallucis longus tendon. SURGEON: Alli Maldonado DO. CASINO BANKER: None. ANESTHESIA: MAC regional. SPECIMENS: Aerobic, anaerobic, Gram stain of first metatarsophalangeal joint abscess. DRAINS: One-quarter inch iodoform gauze drains x2 separate sites. COMPLICATIONS: None. BLOOD LOSS: 1 mL. PERTINENT HISTORY: This is a 59-year-old female seen at the request of Dr. Shabazz and the medical service regarding gangrene and severe ulceration of the left plantar medial foot x2 separate sites. The patient has multiple medical comorbidities and other social concerns in addition to intermittent alcohol abuse. Developed ulcerations and necrotic gangrenous ulcers with abscess formation, left foot. Since seen in consultation, scheduled for surgery as indicated. All potential risks, benefits, complications, alternatives, rehab potential for incomplete relief of symptoms, need for further surgery, DVT, PE, , persistent pain, swelling, scarring, weakness, neurovascular injury, wound complications, need for further surgery, possible amputation were discussed with the patient. The patient decided to proceed with the procedure as indicated. DESCRIPTION OF PROCEDURE: The patient was taken to the operative suite, placed supine on the operating room table. After review of consent and identification of proper operative site, the patient was sedated. Tourniquet was applied on the left thigh and left lower extremity was then sterilely prepped and draped in usual fashion, elevated and partially exsanguinated from the heel proximally with a 4-inch Esmarch bandage and an Esmarch bandage was then applied over sterile surgical towel at the level of the ankle. Next, a 15 blade scalpel was then used to unroof the gangrenous necrotic eschar from the plantar medial first metatarsophalangeal joint and the medial aspect of the interphalangeal joint. The extent of the ulceration was finally determined after removing skin and slough that measured to be 4 cm x 3 cm x 0.4 cm over the plantar medial first metatarsophalangeal joint and 12 mm x 14 mm x 3 mm of the first interphalangeal joint of the great toe. After all necrotic tissue was debrided with a 15 blade scalpel including skin, subcutaneous tissue, fascia and periosteum overlying the medial sesamoid, then there was noted to be some viable tissue present. Some punctate capillary bleeding was noted. Next, this was initially lavaged to clear detritus and devitalized tissue. The first metatarsophalangeal joint was then debrided with a 15 blade scalpel. There was noted to be an abscess fluid collection. This was then sampled for aerobic, anaerobic and Gram stain. This was sent off as specimen. Upon further debridement along the plantar aspect of the first metatarsophalangeal region, the flexor hallucis longus came into view. There was noted to be septic tenosynovitis and purulence within the tendon sheath. This was then irrigated with pulsatile lavage with bacitracin, and tenosynovectomy was then performed with a rongeur, removing any devitalized or septic tenosynovium from the flexor hallucis longus tendon both proximal and distal until clear. It was then further lavaged and then no further purulent material was noted. The ulcerations were then carefully debrided with a 15 blade scalpel until punctate bleeding could be noted and final lavage was then performed with pulse lavage with bacitracin 3 liters total. The periosteum overlying the medial sesamoid was also debrided with a 15 blade. There was no focal softening of the medial sesamoid to indicate osteomyelitis; however, the periosteum was affected and this was sharply debrided until the devitalized tissue was resected. Marked improvement was noted in the appearance of the ulcers with some viable tissue present at the MPJ and at the IPJ. Some capsular tissue was also viable at the IPJ. Next, the plantar fat pad was then loosely closed over a 1/4 inch iodoform gauze packing, which was placed both proximal and distal within the FHL tendon sheath and around the first MTP joint capsule. A 3-0 nylon closure was performed loosely of the fat pad and plantar residual tissue. Next, a local anesthetic and a partial ankle block was performed with 0.5% Marcaine plain, approximately 20 mL. Next, a sterile compressive soft tissue dressing was applied consisting of Xeroform gauze, sterile 4 x 4s, ABD pads x2, sterile cast padding and a 4-inch Brenden wrap. The tourniquet was released. Normal hyperemic response returned to the toes and the foot was placed into a low walking boot. The patient was awakened and taken to recovery in stable condition. I attest to the content of the Intraoperative Record and any orders documented therein. Any exception s are noted below.
[2020-06-17] MEDS: SODIUM CHLORIDE 0.9% 1000ML 1,000 ML IV SCH ×2 (12:30→22:15)
--- NOTE | 2020-06-17 14:09 | Hospitalist Progress Note ---
Date of Service June 17, 2020 Assessment & Plan (1) Sepsis: 2nd to left foot cellulitis, gangrene, osteomyelitis, and possible septic arthritis of first MTP joint. Cont zosyn. Cont vanco. Ortho consult with Dr Joel morales/p OR on 06/17 for the following procedures: 1. Incision and drainage of abscess, left first metatarsophalangeal joint. 2. Irrigation and debridement of plantar medial neuropathic ulcer, first metatarsophalangeal joint 4 cm x 3 cm x 0.4 cm. 3. Irrigation and debridement of medial neuropathic ulcer, first interphalangeal joint 12 mm x 14 mm x 3 mm. 4. Irrigation and debridement of necrotic ulcers, left great toe, 2 separate sites including skin, subcutaneous tissue, fascia and periosteum. 5. Left foot tenosynovectomy septic flexor hallucis longus tendon. Due to fevers in the midst of zosyn/vanco I performed a 2nd COVID test that was negative. Suspect fevers are due to worsening gangrene. Echo without endocarditis. Blood cx negative to date. (2) Gangrene of left foot: See above in sepsis. LLE arterial duplex study without focal occlusion of any specific vessel; diffuse atherosclerosis noted. Cont broad-spectrum IV abx therapy. Follow blood cx OR as above (3) Osteomyelitis: MRI left foot -- 1. Small focus of osteomyelitis within the distal medial aspect of the proximal phalanx of the left first toe. Additional sites of marrow edema within the left first metatarsal head, base of the proximal phalanx of the distal phalanx consistent with osteitis. 2. Left first metatarsophalangeal joint effusion with synovial enhancement. No associated bony destruction adjacent to the joint. This suggests synovitis and sterility cannot be assessed by MRI. 3. Wound along the plantar medial aspect of the left first metatarsophalangeal joint. Soft tissue edema consistent with cellulitis. surgical debridement and/or 6-week course of IV antibiotic therapy. (4) Cellulitis of great toe of left foot: Patient has a combination of cellulitis of the left great toe, a neuropathic ulcer of left great toe, and an ulcer on the plantar aspect overlying the first metatarsal head. Gangrene present left first metatarsal head region. This looks worse today Osteomyelitis present. Possible septic synovitis of left MTP joint, first. Cont IV zosyn with vancomycin. Echo without obvious SBE. Blood cx neg thus far. Partial weight-bearing left foot only. (5) Weakness of both legs: suspect 2nd to sepsis rather than spinal cord lesion, etc neuro exam wnl since admission (6) Diabetes mellitus type 2, uncontrolled: change lantus to BID dosing adjust novolog (7) Chronic alcohol use: Concern for some element of active withdrawal earlier in admission, doing well now Cont gabapentin taper. Cont etoh withdrawal protocol with PRN ativan. Thiamine 200mg IV BID. Folate 1mg IV daily. MVI. Cont telemetry. Etoh level was 0 at admission. (8) Diabetic neuropathy: Severe. Gabapentin will help this. (9) Pulmonary nodules/lesions, multiple: Seen on CT chest earlier this fall. etiology?? COVID was negative (antigen test) this admission x2 and on past admission O2 sats stable in RA (10) Hypomagnesemia: repleted and resolved (11) Hyponatremia: Pseudohyponatremia from high BSG. Could also have component of volume depletion. Had improved with isotonic fluids. BMP am. (12) Acute hepatitis: LFTs are chronically elevated, but much worse this admission. INR elevated Suspect Acute alcoholic hepatitis. HepC Ab 05/15 was negative. Madrey's discriminant function score 20 -- defer on steroids. Vitamin K for coagulopathy given on day of admission. Supportive care. Monitor (13) Coagulopathy: 2nd to acute hepatitis (suspected). vitamin K 5mg IV x 1 at admission. INR 1.3 (14) Hypertension: Cont metoprolol xl. HOLD BETZAIDA - BPs modestly low this am. (15) Acute metabolic encephalopathy: 2nd etoh withdrawal? sepsis? combo? supportive care. (16) Anemia: Hb improved to 9.3 pre-op, monitor Received 1 unit PRBC pre-op repeat CBC am hemoccult pending (17) DVT prophylaxis: Despite coagulopathy she is at high risk of DVT. however her Hb dropped since admission thus place the heparin on hold Admission and Anticipated Discharge Date Admission Date: June 14, 2020 Subjective Pt is doing well post-op. She denies pain. She is getting ready to have lunch, but no n/v post-op. Pt denies fever, SOB, chest pain, abd pain, n/v/c/d, LE pain or swelling. Review of Systems Review of Systems: Pertinent positives and negatives reviewed in HPI--all others negative Physical Exam Constitutional: WD/WN, vitals as above Eyes: normal visual keller by confrontation and + anicteric sclerae Neck: normal visual inspection and trachea midline Respiratory: normal respiratory effort, lungs clear to auscultation Cardiovascular: Rate/Rhythm: regular rate and regular rhythm Gastrointestinal (Abdomen): Inspection/Auscultation: abdomen not distended Percussion/Palpation: abdomen soft; abdomen nontender Musculoskeletal: Head/Neck/Chest: normocephalic and head atraumatic negative for edema, peripheral pulses intact Skin: no rashes, warm and dry Neurologic: awake; not confused Speech / Cognition: normal speech Psychiatric: A+Ox3, euthymic affect Results & Data Results & Data ([facility]) Vital Signs (Past 12 Hours) Vital Signs Temp Pulse Pulse Pulse Resp BP BP 06/17/20 13:13 70 18 164/67 H 06/17/20 12:34 36.3 C L 64 18 163/77 H 06/17/20 12:23 61 06/17/20 12:10 36.7 C 64 18 162/79 H 06/17/20 11:56 36.3 C L 62 18 154/74 H 06/17/20 11:50 36.5 C 62 18 158/74 H 06/17/20 11:40 63 16 150/73 H 06/17/20 11:30 36.2 C L 67 16 141/67 H 06/17/20 08:30 66 06/17/20 08:06 37.1 C 65 19 176/79 H 06/17/20 02:31 37.0 C 66 17 161/78 H Pulse Ox 06/17/20 13:13 97 06/17/20 12:34 98 06/17/20 12:23 06/17/20 12:10 97 06/17/20 11:56 97 06/17/20 11:50 96 06/17/20 11:40 96 06/17/20 11:30 96 06/17/20 08:30 06/17/20 08:06 93 06/17/20 02:31 91 PG Care Time/CCT Total # of Minutes Spent Total Time Spent with Patient: Total time spent is greater than 50% in coordination of care (as documented) at patient's floor/unit and/or counseling patient: Coding Level of Care Code 50089 Subseq Hosp Care Lvl 3 Diagnoses Sepsis A41.9 Gangrene of left foot I96 Osteomyelitis M86.9 Cellulitis of great toe of left foot L03.032 Weakness of both legs R29.898 Diabetes mellitus type 2, uncontrolled E11.65 Glycemic state: with hyperglycemia Chronic alcohol use Z72.89 Diabetic neuropathy E11.42 Diabetes mellitus type: type 2 Diabetes mellitus complication detail: diabetic polyneuropathy Pulmonary nodules/lesions, multiple R91.8 Hypomagnesemia E83.42 Hyponatremia E87.1 Acute hepatitis B17.9 Coagulopathy D68.9 Hypertension I10 Hypertension type: essential hypertension Acute metabolic encephalopathy G93.41 Anemia D64.9 DVT prophylaxis Z29.9 (1) Diabetes mellitus type 2, uncontrolled Glycemic state: with hyperglycemia Qualified Code(s): E11.65 - Type 2 diabetes mellitus with hyperglycemia (2) Diabetic neuropathy Diabetes mellitus type: type 2 Diabetes mellitus complication detail: diabetic polyneuropathy Qualified Code(s): E11.42 - Type 2 diabetes mellitus with diabetic polyneuropathy (3) Hypertension Hypertension type: essential hypertension Qualified Code(s): I10 - Essential (primary) hypertension
[2020-06-17] MEDS: FERROUS GLUCONATE 324 MG TAB PO SCH (16:51)
[2020-06-17] MEDS ORDERED: VANCOMYCIN HCL 1,000 MG in SODIUM CHLORIDE 0.9% 250 ML IV SCH (20:00)
[2020-06-17] MEDS: DOCUSATE SODIUM 100 MG CAP PO SCH (22:12)
[2020-06-17] MEDS: SENNA 8.6 MG TAB PO SCH (22:14)
[2020-06-17] MEDS: oxyCODONE HCL IR 5 MG TAB (IMMEDIATE RELEASE) PO PRN (22:16)
[2020-06-18] MEDS: PIPERACILLIN/TAZOBACTAM 3.375 GM in DEXTROSE 5% 100 ML IV SCH ×3 (03:14→20:00)
[2020-06-18] MEDS: oxyCODONE HCL IR 5 MG TAB (IMMEDIATE RELEASE) PO PRN ×3 (05:51→21:14)
[2020-06-18 06:28] LABS: Basophils # (auto) 0.02 K/uL (0-0.2); Basophils % (auto) 0.1 %; Eosinophils # (auto) 0.03 K/uL (0-0.5); Eosinophils % (auto) 0.2 %; Hematocrit (blood only) 31.8 % (37-47); Hemoglobin 10.5 g/dL (12.0-16.0); Immature Granulocytes # (auto) 0.08 K/uL (0.00-0.02); Immature Granulocytes % (auto) 0.5 %; Lymphocytes # (auto) 1.43 K/uL (1.2-3.4); Lymphocytes % (auto) 9.2 %; Mean Corpuscular Hemoglobin 32.4 pg (25-34); Mean Corpuscular Volume 98.1 fL (80-100); Mean Platelet Volume 10.5 fL (7.4-10.4); Monocytes % (auto) 11.6 %; Neutrophils # (auto) 12.18 K/uL (1.4-6.5); Neutrophils % (auto) 78.4 %; Platelet Count 275 K/uL (130-400); RDW Coefficient of Variation 18.2 % (11.5-14.5); RDW Standard Deviation 64.4 fL (36.4-46.3); Red Blood Count 3.24 M/uL (4.2-5.4); White Blood Count 15.54 K/uL (4.8-10.8)
[2020-06-18 06:33] LABS: INR 1.4 (0.9-1.1); Prothrombin Time 14.1 Seconds (9.0-12.0)
[2020-06-18 06:56] LABS: BUN Creatinine Ratio 13.9 (10-20); Calcium 7.6 mg/dl (8.5-10.1); Creatinine Clr Calc Pharmacy 61.6 ml/min; Est GFR (Non-African American) 68.2; Magnesium 1.8 mg/dl (1.8-2.4); Potassium 4.2 mmol/L (3.5-5.1)
[2020-06-18 07:06] LABS: Phosphorus 1.4 mg/dl (2.5-4.9)
[2020-06-18] MEDS ORDERED: POTASSIUM PHOS 3 MMOL/1 ML INFUSION IV STA (07:47)
--- NOTE | 2020-06-18 07:47 | Anesthesiology Progress Note ---
Date of Service June 18, 2020 Anesthesia Post Procedure Vital Signs Vital Signs: Temp Pulse Pulse Pulse Pulse Resp BP 06/18/20 04:00 36.8 C 78 18 120/73 06/18/20 00:00 37.8 C H 79 18 99/55 L 06/17/20 20:00 39.3 C H 97 H 19 115/67 06/17/20 15:47 37.3 C 80 20 186/84 H 06/17/20 14:28 73 18 06/17/20 13:13 70 18 06/17/20 12:34 36.3 C L 64 18 06/17/20 12:23 61 06/17/20 12:10 36.7 C 64 18 06/17/20 11:56 36.3 C L 62 18 06/17/20 11:50 36.5 C 62 18 158/74 H 06/17/20 11:40 63 16 150/73 H 06/17/20 11:30 36.2 C L 67 16 06/17/20 08:30 66 06/17/20 08:06 37.1 C 65 19 BP Pulse Ox 06/18/20 04:00 97 06/18/20 00:00 96 06/17/20 20:00 98 06/17/20 15:47 2 L 06/17/20 14:28 155/76 H 98 06/17/20 13:13 164/67 H 97 06/17/20 12:34 163/77 H 98 06/17/20 12:23 06/17/20 12:10 162/79 H 97 06/17/20 11:56 154/74 H 97 06/17/20 11:50 96 06/17/20 11:40 96 06/17/20 11:30 141/67 H 96 06/17/20 08:30 06/17/20 08:06 176/79 H 93 Pain Intensity Left Foot: Pain Intensity: 5 Notes Mental Status: alert / awake / arousable and participated in evaluation Patient Amnestic to Procedure: Yes Nausea / Vomiting: adequately controlled Pain: adequately controlled Airway Patency, RR, SpO2: stable & adequate BP & HR: stable & adequate Hydration State: stable & adequate Anesthetic Complications: no major complications apparent
[2020-06-18] MEDS ORDERED: POTASSIUM PHOSPHATE 15 MMOL in SODIUM CHLORIDE 0.9% 250 ML IV ONE (08:00)
[2020-06-18] MEDS: CHOLECALCIFEROL 1,000 UNITS 25 MCG TAB PO SCH (08:20)
[2020-06-18] MEDS: FOLIC ACID 1 MG in SYRINGE 9.8 ML IV SCH (08:20)
[2020-06-18] MEDS: ADVANCED PROBIOTIC 1250 MG CAPSULE PO SCH (08:20)
[2020-06-18] MEDS: POTASSIUM CHLORIDE CRTAB 20 MEQ TABCR PO SCH ×3 (08:20→21:15)
[2020-06-18] MEDS: FERROUS GLUCONATE 324 MG TAB PO SCH ×2 (08:20→17:27)
[2020-06-18] MEDS: MULTIVITAMIN TAB PO SCH (08:21)
[2020-06-18] MEDS: DOCUSATE SODIUM 100 MG CAP PO SCH ×2 (08:21→20:44)
[2020-06-18] MEDS: INSULIN ASPART 100 UNITS/ML 3 ML PEN SC SCH ×4 (08:22→21:16)
[2020-06-18] MEDS: INSULIN GLARGINE SOLOSTAR 100 UNITS/ML 3 ML PEN SC SCH ×2 (08:23→21:17)
[2020-06-18] MEDS: LACTULOSE SYRUP 10 GM/15 ML BTL 960 ML PO SCH (08:23)
[2020-06-18] MEDS: THIAMINE HCL 200 MG in SODIUM CHLORIDE 0.9% 50 ML IV SCH ×2 (08:34→21:26)
[2020-06-18] MEDS ORDERED: VANCOMYCIN HCL 1,000 MG in SODIUM CHLORIDE 0.9% 250 ML IV SCH (10:00)
[2020-06-18] MEDS ORDERED: GABAPENTIN 600 MG TAB PO SCH (12:00)
--- NOTE | 2020-06-18 14:06 | Pharmacy Report ---
Pharmacy Abx Dose Short Note - Date of Service June 18, 2020 - Assessment & Plan Assessment 59 year old F receiving vancomycin and Zosyn for treatment of left foot osteomyelitis/gangrene * Now POD #1 s/p left foot I&D * Continues to be intermittently febrile (Tmax of 39.3 C over past 24 hours) + persistent leukocytosis (15 K) Day # 5 of antimicrobial therapy. Microbiology: * Left foot culture (06/17): gram-negative bacilli (await susceptibilities - de-escalate as appropriate) Plan Vancomycin * Trough level of 18.3 mcg/mL is therapeutic * Continue dose of 1000 mg IV every 12 hours * Goal trough level for osteomyelitis : 15 to 20 mcg/mL * Trough or random level ordered for: 06/20/20 * Will recheck renal function tomorrow and obtain trough earlier if needed Zosyn * 3.375 g IV q8h - appropriate based on BMI and renal function Pharmacy will continue to follow and will adjust dose/frequency as necessary. Thank you.
--- NOTE | 2020-06-18 14:50 | Hospitalist Progress Note ---
Date of Service June 18, 2020 Assessment & Plan (1) Sepsis: 2nd to left foot cellulitis, gangrene, osteomyelitis, and possible septic arthritis of first MTP joint. Cont zosyn. Cont vanco. Ortho consult with Dr Joel morales/roberto OR on 06/17 for the following procedures: 1. Incision and drainage of abscess, left first metatarsophalangeal joint. 2. Irrigation and debridement of plantar medial neuropathic ulcer, first metatarsophalangeal joint 4 cm x 3 cm x 0.4 cm. 3. Irrigation and debridement of medial neuropathic ulcer, first interphalangeal joint 12 mm x 14 mm x 3 mm. 4. Irrigation and debridement of necrotic ulcers, left great toe, 2 separate sites including skin, subcutaneous tissue, fascia and periosteum. 5. Left foot tenosynovectomy septic flexor hallucis longus tendon. Due to fevers in the midst of zosyn/vanco a 2nd COVID test was done--results were negative. Suspect fevers are due to worsening gangrene. Echo without endocarditis. Blood cx negative to date. (2) Gangrene of left foot: See above in sepsis. LLE arterial duplex study without focal occlusion of any specific vessel; diffuse atherosclerosis noted. Cont broad-spectrum IV abx therapy. Follow blood cx OR as above (3) Osteomyelitis: MRI left foot -- 1. Small focus of osteomyelitis within the distal medial aspect of the proximal phalanx of the left first toe. Additional sites of marrow edema within the left first metatarsal head, base of the proximal phalanx of the distal phalanx consistent with osteitis. 2. Left first metatarsophalangeal joint effusion with synovial enhancement. No associated bony destruction adjacent to the joint. This suggests synovitis and sterility cannot be assessed by MRI. 3. Wound along the plantar medial aspect of the left first metatarsophalangeal joint. Soft tissue edema consistent with cellulitis. surgical debridement and/or 6-week course of IV antibiotic therapy. (4) Cellulitis of great toe of left foot: Patient has a combination of cellulitis of the left great toe, a neuropathic ulcer of left great toe, and an ulcer on the plantar aspect overlying the first metatarsal head. Gangrene was present left first metatarsal head region Osteomyelitis present. Possible septic synovitis of left MTP joint, first. Cont IV zosyn with vancomycin. Echo without obvious SBE. Blood cx neg thus far. Partial weight-bearing left foot only. (5) Weakness of both legs: suspect 2nd to sepsis rather than spinal cord lesion, etc neuro exam wnl since admission (6) Diabetes mellitus type 2, uncontrolled: change lantus to BID dosing adjust novolog (7) Chronic alcohol use: Concern for some element of active withdrawal earlier in admission, doing well now Cont gabapentin taper. Cont etoh withdrawal protocol with PRN ativan. Thiamine 200mg IV BID. Folate 1mg IV daily. MVI. Cont telemetry. Etoh level was 0 at admission. (8) Diabetic neuropathy: Severe. Gabapentin will help this. Pain today sounds more like neuropathic pain, monitor with gabapentin use (9) Pulmonary nodules/lesions, multiple: Seen on CT chest earlier this fall. etiology?? COVID was negative (antigen test) this admission x2 and on past admission O2 sats stable in RA (10) Hypomagnesemia: repleted and resolved Now with hypoPhos, replaced, monitor (11) Hyponatremia: Pseudohyponatremia from high BSG. Could also have component of volume depletion. Had improved with isotonic fluids. BMP am. (12) Acute hepatitis: LFTs are chronically elevated, but much worse this admission. INR elevated Suspect Acute alcoholic hepatitis. HepC Ab 05/15 was negative. Madrey's discriminant function score 20 -- defer on steroids. Vitamin K for coagulopathy given on day of admission. Supportive care. Monitor (13) Coagulopathy: 2nd to acute hepatitis (suspected). vitamin K 5mg IV x 1 at admission. INR 1.4 (14) Hypertension: Cont metoprolol xl. HOLD BETZAIDA - BPs modestly low this am. (15) Acute metabolic encephalopathy: 2nd etoh withdrawal? sepsis? combo? supportive care. (16) Anemia: Hb improved to 9.3 pre-op and is further improved on her 1st day post-op Received 1 unit PRBC pre-op hemoccult pending (17) DVT prophylaxis: Despite coagulopathy she is at high risk of DVT. however her Hb dropped since admission thus place the heparin on hold Admission and Anticipated Discharge Date Admission Date: June 14, 2020 Subjective Pt is having a lot of pain to the L foot and moving into the rest of her LE. She states it is more burning. She feels it is similar to pre-op. Doing fine otherwise. Pt denies fever, SOB, chest pain, abd pain, n/v/c/d, LE swelling. Review of Systems Review of Systems: Pertinent positives and negatives reviewed in HPI--all others negative Physical Exam Constitutional: WD/WN, vitals as above Eyes: normal visual keller by confrontation and + anicteric sclerae Neck: normal visual inspection and trachea midline Respiratory: normal respiratory effort, lungs clear to auscultation Cardiovascular: Rate/Rhythm: regular rate and regular rhythm Gastrointestinal (Abdomen): Inspection/Auscultation: abdomen not distended Percussion/Palpation: abdomen soft; abdomen nontender Musculoskeletal: Head/Neck/Chest: normocephalic and head atraumatic Skin: no rashes, warm and dry (L LE is wrapped, clean and dry) Neurologic: awake; not confused Speech / Cognition: normal speech Psychiatric: A+Ox3, euthymic affect Results & Data Results & Data ([facility]) Vital Signs (Past 12 Hours) Vital Signs Temp Pulse Resp BP Pulse Ox 06/18/20 12:12 36.8 C 80 19 120/71 97 06/18/20 11:00 87 06/18/20 08:26 37.0 C 80 19 127/74 96 06/18/20 04:00 36.8 C 78 18 120/73 97 PG Care Time/CCT Total # of Minutes Spent Total Time Spent with Patient: Total time spent is greater than 50% in coordination of care (as documented) at patient's floor/unit and/or counseling patient: Coding Level of Care Code 37088 Subseq Hosp Care Lvl 3 Diagnoses Sepsis A41.9 Gangrene of left foot I96 Osteomyelitis M86.9 Cellulitis of great toe of left foot L03.032 Weakness of both legs R29.898 Diabetes mellitus type 2, uncontrolled E11.65 Glycemic state: with hyperglycemia Chronic alcohol use Z72.89 Diabetic neuropathy E11.42 Diabetes mellitus complication detail: diabetic polyneuropathy Diabetes mellitus type: type 2 Pulmonary nodules/lesions, multiple R91.8 Hypomagnesemia E83.42 Hyponatremia E87.1 Acute hepatitis B17.9 Coagulopathy D68.9 Hypertension I10 Hypertension type: essential hypertension Acute metabolic encephalopathy G93.41 Anemia D64.9 DVT prophylaxis Z29.9 (1) Diabetic neuropathy Diabetes mellitus complication detail: diabetic polyneuropathy Diabetes mellitus type: type 2 Qualified Code(s): E11.42 - Type 2 diabetes mellitus with diabetic polyneuropathy (2) Diabetes mellitus type 2, uncontrolled Glycemic state: with hyperglycemia Qualified Code(s): E11.65 - Type 2 diabetes mellitus with hyperglycemia (3) Hypertension Hypertension type: essential hypertension Qualified Code(s): I10 - Essential (primary) hypertension
--- NOTE | 2020-06-18 15:50 | Orthopedic Progress Note ---
Date of Service June 18, 2020 Assessment & Plan (1) Gangrene of left foot: POD 1 s/p I/D Left great toe/foot Heel weightbearing for now Antibx as per Med service; Follow cultures. Plan for dressing change tomorrow. Admission and Anticipated Discharge Date Admission Date: June 14, 2020 Subjective Pt sitting up in chair at bedside. No complaints currently. Pain controlled. Physical Exam Physical Exam: Dressing is intact. There is a slight shade of drainage noted on on the inner wrapping but the Brenden wrap has not been compromised. Most of the toes are covered with dressing at this time. Pt able to move the ankle about without discomfort. Results & Data ([facility]) Vital Signs (Past 12 Hours) Vital Signs Temp Pulse Resp BP Pulse Ox 06/18/20 12:12 36.8 C 80 19 120/71 97 06/18/20 11:00 87 06/18/20 08:26 37.0 C 80 19 127/74 96 06/18/20 04:00 36.8 C 78 18 120/73 97
[2020-06-18] MEDS: SENNA 8.6 MG TAB PO SCH (20:44)
[2020-06-18] MEDS ORDERED: IBUPROFEN 800 MG TAB PO STA (23:36)
[2020-06-18] MEDS ORDERED: IBUPROFEN 200 MG TAB PO STA (23:36)
[2020-06-18] MEDS: VANCOMYCIN HCL 1,000 MG in SODIUM CHLORIDE 0.9% 250 ML IV SCH (23:37)
[2020-06-19] MEDS: oxyCODONE HCL IR 5 MG TAB (IMMEDIATE RELEASE) PO PRN ×2 (01:34→08:11)
[2020-06-19] MEDS: PIPERACILLIN/TAZOBACTAM 3.375 GM in DEXTROSE 5% 100 ML IV SCH ×3 (03:46→19:32)
[2020-06-19] MEDS ORDERED: VANCOMYCIN TROUGH ONE (07:30)
[2020-06-19 07:50] LABS: Basophils # (auto) 0.04 K/uL (0-0.2); Basophils % (auto) 0.3 %; Eosinophils # (auto) 0.16 K/uL (0-0.5); Eosinophils % (auto) 1.2 %; Hematocrit (blood only) 28.8 % (37-47); Hemoglobin 9.4 g/dL (12.0-16.0); Immature Granulocytes # (auto) 0.06 K/uL (0.00-0.02); Immature Granulocytes % (auto) 0.4 %; Lymphocytes # (auto) 1.58 K/uL (1.2-3.4); Lymphocytes % (auto) 11.8 %; Mean Corpuscular Hemoglobin 32.3 pg (25-34); Mean Corpuscular Hgb Conc 32.6 g/dL (32-36); Mean Platelet Volume 10.3 fL (7.4-10.4); Monocytes # (auto) 1.93 K/uL (0.11-0.59); Monocytes % (auto) 14.4 %; Neutrophils # (auto) 9.66 K/uL (1.4-6.5); Neutrophils % (auto) 71.9 %; Platelet Count 335 K/uL (130-400); RDW Coefficient of Variation 18.3 % (11.5-14.5); RDW Standard Deviation 65.2 fL (36.4-46.3); Red Blood Count 2.91 M/uL (4.2-5.4); White Blood Count 13.43 K/uL (4.8-10.8)
[2020-06-19] MEDS: DOCUSATE SODIUM 100 MG CAP PO SCH ×2 (08:06→21:26)
[2020-06-19] MEDS: POTASSIUM CHLORIDE CRTAB 20 MEQ TABCR PO SCH ×3 (08:06→21:23)
[2020-06-19] MEDS: FOLIC ACID 1 MG in SYRINGE 9.8 ML IV SCH (08:06)
[2020-06-19] MEDS: CHOLECALCIFEROL 1,000 UNITS 25 MCG TAB PO SCH (08:07)
[2020-06-19] MEDS: ADVANCED PROBIOTIC 1250 MG CAPSULE PO SCH (08:07)
[2020-06-19] MEDS: INSULIN ASPART 100 UNITS/ML 3 ML PEN SC SCH ×4 (08:07→21:24)
[2020-06-19] MEDS: LACTULOSE SYRUP 10 GM/15 ML BTL 960 ML PO SCH (08:07)
[2020-06-19] MEDS: MULTIVITAMIN TAB PO SCH (08:07)
[2020-06-19] MEDS: INSULIN GLARGINE SOLOSTAR 100 UNITS/ML 3 ML PEN SC SCH ×2 (08:08→21:23)
[2020-06-19] MEDS: FERROUS GLUCONATE 324 MG TAB PO SCH ×2 (08:09→16:49)
[2020-06-19] MEDS: THIAMINE HCL 200 MG in SODIUM CHLORIDE 0.9% 50 ML IV SCH ×2 (08:11→21:29)
[2020-06-19 08:17] LABS: BUN Creatinine Ratio 13.4 (10-20); Calcium 8.2 mg/dl (8.5-10.1); Creatinine Clr Calc Pharmacy 77.7 ml/min; Est GFR (African American) 104.5; Est GFR (Non-African American) 90.1; Magnesium 1.7 mg/dl (1.8-2.4); Potassium 4.5 mmol/L (3.5-5.1)
[2020-06-19 08:21] LABS: Phosphorus 2.1 mg/dl (2.5-4.9)
--- NOTE | 2020-06-19 09:38 | Orthopedic Progress Note ---
Date of Service June 19, 2020 Assessment & Plan (1) Gangrene of left foot: POD 2 s/p I/D Left great toe/foot Heel weightbearing for now Antibx as per Med service; Follow cultures. Proteus noted. No further surgery at this time. Daily dressing changes per nursing/wound care. Orthopedics will sign off at this time. Please call with any questions. Follow up with Dr Maldonado in 10-14 days. Admission and Anticipated Discharge Date Admission Date: June 14, 2020 Subjective POD 2 Pt was in her chair but moved to the bed for dressing change with help of betsey leonard. States she was having pain in the plantar surface of her foot last night. No other complaints. Pain better controlled this AM. Physical Exam 2 Physical Exam: Dressing removed. Ulcer on top of great toe is clean with pink base. No purulence. Darkened gangrenous area noted on the medial aspect that is dry. All iodiform gauze removed. No purulent or serous drainage noted when iodiform removed. No odor. Mild erythema of great toe. Cap refill < 2 seconds. Pt tolerated dressing change very well. Redressed with adaptic, 4x4's, kerlix, and petros wrap. Results & Data ([facility]) Vital Signs (Past 12 Hours) Vital Signs Temp Pulse Pulse Resp BP Pulse Ox 06/19/20 08:10 36.6 C 69 18 130/80 99 06/19/20 03:53 36.8 C 73 18 117/67 99 06/19/20 01:07 37.1 C 06/18/20 23:21 38.7 C H 88 18 134/76 99 06/18/20 23:06 83
[2020-06-19] MEDS: MAGNESIUM SULFATE / D5W 1 GM/100 ML BAG IV SCH ×2 (09:47→12:40)
[2020-06-19] MEDS: VANCOMYCIN HCL 1,000 MG in SODIUM CHLORIDE 0.9% 250 ML IV SCH (12:39)
[2020-06-19] MEDS: POT PHOSPHATE MONOBASIC W/ SOD TAB PO SCH ×3 (13:30→21:22)
[2020-06-19] MEDS: SENNA 8.6 MG TAB PO SCH (21:26)
[2020-06-20] MEDS: VANCOMYCIN HCL 1,000 MG in SODIUM CHLORIDE 0.9% 250 ML IV SCH (00:25)
[2020-06-20] MEDS: PIPERACILLIN/TAZOBACTAM 3.375 GM in DEXTROSE 5% 100 ML IV SCH ×2 (03:16→11:20)
[2020-06-20] MEDS: INSULIN ASPART 100 UNITS/ML 3 ML PEN SC SCH ×4 (08:24→21:35)
[2020-06-20] MEDS: INSULIN GLARGINE SOLOSTAR 100 UNITS/ML 3 ML PEN SC SCH ×2 (08:25→21:35)
[2020-06-20] MEDS: FOLIC ACID 1 MG in SYRINGE 9.8 ML IV SCH (08:28)
[2020-06-20] MEDS: ADVANCED PROBIOTIC 1250 MG CAPSULE PO SCH (08:28)
[2020-06-20] MEDS: DOCUSATE SODIUM 100 MG CAP PO SCH ×2 (08:29→20:27)
[2020-06-20] MEDS: POTASSIUM CHLORIDE CRTAB 20 MEQ TABCR PO SCH ×2 (08:29→14:21)
[2020-06-20] MEDS: CHOLECALCIFEROL 1,000 UNITS 25 MCG TAB PO SCH (08:30)
[2020-06-20] MEDS: MULTIVITAMIN TAB PO SCH (08:30)
[2020-06-20] MEDS: POT PHOSPHATE MONOBASIC W/ SOD TAB PO SCH ×3 (08:31→17:44)
[2020-06-20] MEDS: LACTULOSE SYRUP 10 GM/15 ML BTL 960 ML PO SCH (08:31)
[2020-06-20] MEDS: FERROUS GLUCONATE 324 MG TAB PO SCH ×2 (08:32→17:39)
[2020-06-20] MEDS: THIAMINE HCL 200 MG in SODIUM CHLORIDE 0.9% 50 ML IV SCH (08:36)
--- NOTE | 2020-06-20 11:01 | Hospitalist Progress Note ---
Date of Service June 19, 2020 Assessment & Plan (1) Sepsis: 2nd to left foot cellulitis, gangrene, osteomyelitis, and septic arthritis of first MTP joint. Cont zosyn. Can stop vanco. Ortho consult with Dr Maldonado much appreciated - POD #2 s/p extensive surgery on L foot. Echo without endocarditis. Blood cx's negative to date. Consult [facility] ID in am for abx recommendations - can likely narrow beginning tomorrow. (2) Gangrene of left foot: See above in sepsis. LLE arterial duplex study without focal occlusion of any specific vessel; diffuse atherosclerosis noted. POD #2 - s/p incision and Drainage abscess left first metatarsal phalangeal joint, irrigation and debridement plantar medial neuropathic ulcer first metatarsal phalangeal joint 4 cm x 3 cm x 0.4 cm, irrigation and debridement medial neuropathic ulcer first interphalangeal joint 12 mm x 14 mm x 3 mm, irrigation and debridement necrotic ulcers left great toe 2 separate sites including skin, subcutaneous tissue, fascia and periosteum, left foot tenosynovectomy septic flexor hallucis longus tendon Intra-op culture with pansens proteus no MRSA - thus, stop IV vanco leave zosyn for now - had low-grade fever today ID consult tomorrow for final recommendations for abx appreciate ortho consult/assistance (3) Osteomyelitis: MRI left foot -- 1. Small focus of osteomyelitis within the distal medial aspect of the proximal phalanx of the left first toe. Additional sites of marrow edema within the left first metatarsal head, base of the proximal phalanx of the distal phalanx consistent with osteitis. 2. Left first metatarsophalangeal joint effusion with synovial enhancement. No associated bony destruction adjacent to the joint. This suggests synovitis and sterility cannot be assessed by MRI. 3. Wound along the plantar medial aspect of the left first metatarsophalangeal joint. Soft tissue edema consistent with cellulitis. POD #2 s/p extensive surgery L foot by Dr Maldonado -- see above (4) Cellulitis of great toe of left foot: Patient has a combination of cellulitis of the left great toe, a neuropathic ulcer of left great toe, and an ulcer on the plantar aspect overlyi ng the first metatarsal head. Gangrene present left first metatarsal head region. Osteomyelitis present. Septic synovitis of left MTP joint, first. SEE ABOVE. Echo without obvious SBE. Blood cx's neg thus far. Partial weight-bearing left foot only. (5) Weakness of both legs: suspect 2nd to sepsis rather than spinal cord lesion, etc neuro exam wnl since admission improved strength since admission with PT/OT needs rehab (6) Diabetes mellitus type 2, uncontrolled: adjust novolog (7) Chronic alcohol use: Finished gabapentin taper. Cont etoh withdrawal protocol with PRN ativan. Thiamine 200mg IV BID. Can change to PO soon. Folate 1mg daily MVI. Cont telemetry. Etoh level was 0 at admission. (8) Diabetic neuropathy: Severe. resume gabapentin after protocol is done for etoh withdrawal. (9) Pulmonary nodules/lesions, multiple: Seen on CT chest earlier this fall. etiology?? COVID was negative (antigen test) this admission and on past admission O2 sats stable in RA repeat COVID PCR negative as well needs f/u CT in the future (10) Hypomagnesemia: repleted and resolved (11) Hyponatremia: Pseudohyponatremia from high BSG. Could also have component of volume depletion. mildly improved and stable. (12) Acute hepatitis: LFTs are chronically elevated, but much worse this admission. INR also worse at 1.6. Suspect Acute alcoholic hepatitis. HepC Ab 05/15 was negative. Madrey's discriminant function score 20 -- deferred on steroids. Vitamin K for coagulopathy given on day of admission. Supportive care. (13) Coagulopathy: 2nd to acute hepatitis (suspected). vitamin K 5mg IV x 1 at admission. INR 1.3 and improved (14) Hypertension: Cont metoprolol xl. BETZAIDA on hold - bps acceptable w/o it (15) Acute metabolic encephalopathy: resolved was likely 2nd sepsis (16) Anemia: s/p 1 unit prcs on Thursday fecal occult neg h/h acceptable since then (17) DVT prophylaxis: resume heparin SC TID dispo planning Admission and Anticipated Discharge Date Admission Date: June 14, 2020 Subjective tele overnight wnl. pt overall feeling good w/ exception of neuropathic type pain from the left knee down to the left foot. no neuropathy/paresthesias on right. no dyspnea. no abd pain. eating "too good!". no diarrhea still willing to attend rehab post-d/c. Review of Systems Constitutional: no chills, no fatigue and no anorexia Respiratory: no dyspnea and no dyspnea on exertion Cardiovascular: no chest pain Gastrointestinal: no nausea Physical Exam Constitutional: + ill appearing; + not well developed, + not well nourished, no acute distress and + not healthy appearing ENMT: Mouth: + poor dentition; no oral mucosal abnormality and oral mucous membranes not dry Respiratory: normal respiratory effort, lungs clear to auscultation Cardiovascular: Rate/Rhythm: regular rate and regular rhythm Heart Sounds: normal S1, normal S2 and + murmur (3/6 holosystolic RUSB/apex) Vessels: posterior tibial pulses present (1+ b/l ) and dorsalis pedis pulses present (1+ b/l); no JVD Gastrointestinal (Abdomen): Inspection/Auscultation: normal bowel sounds; abdomen not distended Percussion/Palpation: abdomen soft; abdomen nontender Musculoskeletal: left foot and ankle in splint -- extends to mid-calf; toes w/ normal cap refill Neurologic: Motor/Sensory: + tremor Psychiatric: Orientation: alert, oriented to person, oriented to place and oriented to time Results & Data Results & Data ([facility]) Vital Signs (Past 12 Hours) Vital Signs Temp Pulse Pulse Resp BP Pulse Ox 06/20/20 08:35 36.9 C 72 20 148/78 H 99 06/20/20 08:00 74 06/20/20 03:21 37.4 C 75 18 118/63 97 06/19/20 23:08 37.5 C 72 19 127/74 96 wound cx - pansensitive proteus Laboratory Results - last 24 hr 06/19/20 06/19/20 06/19/20 11:45 16:42 20:59 POC Glucose 181 H 243 H 212 H Stool Occult Bld Scrn 06/19/20 POC Glucose Stool Occult Bld Scrn Negative PG Care Time/CCT Total # of Minutes Spent Total Time Spent with Patient: Total time spent is greater than 50% in coordination of care (as documented) at patient's floor/unit and/or counseling patient: Coding Level of Care Code 81512 Subseq Hosp Care Lvl 3 Diagnoses Sepsis A41.9 Gangrene of left foot I96 Osteomyelitis M86.9 Cellulitis of great toe of left foot L03.032 Weakness of both legs R29.898 Diabetes mellitus type 2, uncontrolled E11.65 Glycemic state: with hyperglycemia Chronic alcohol use Z72.89 Diabetic neuropathy E11.42 Diabetes mellitus type: type 2 Diabetes mellitus complication detail: diabetic polyneuropathy Pulmonary nodules/lesions, multiple R91.8 Hypomagnesemia E83.42 Hyponatremia E87.1 Acute hepatitis B17.9 Coagulopathy D68.9 Hypertension I10 Hypertension type: essential hypertension Acute metabolic encephalopathy G93.41 Anemia D64.9 DVT prophylaxis Z29.9 (1) Diabetes mellitus type 2, uncontrolled Glycemic state: with hyperglycemia Qualified Code(s): E11.65 - Type 2 diabetes mellitus with hyperglycemia (2) Diabetic neuropathy Diabetes mellitus type: type 2 Diabetes mellitus complication detail: diabetic polyneuropathy Qualified Code(s): E11.42 - Type 2 diabetes mellitus with diabetic polyneuropathy (3) Hypertension Hypertension type: essential hypertension Qualified Code(s): I10 - Essential (primary) hypertension
[2020-06-20] MEDS: oxyCODONE HCL IR 5 MG TAB (IMMEDIATE RELEASE) PO PRN (11:21)
[2020-06-20] MEDS ORDERED: VANCOMYCIN TROUGH ONE (11:30)
[2020-06-20 12:04] LABS: BUN Creatinine Ratio 10.5 (10-20); Creatinine Clr Calc Pharmacy 88.3 ml/min; Est GFR (African American) 108.1; Est GFR (Non-African American) 93.2; Magnesium 2.1 mg/dl (1.8-2.4)
[2020-06-20] MEDS: HEPARIN SOD 5,000 UNIT/0.5 ML VIAL SQ SCH ×2 (14:21→21:35)
[2020-06-20] MEDS: SENNA 8.6 MG TAB PO SCH (20:27)
[2020-06-20] MEDS: ERTAPENEM SODIUM 1,000 MG in SODIUM CHLORIDE 0.9% 50 ML IV SCH (21:18)
[2020-06-20] MEDS: CARBOHYDRATES FOR HYPOGLYCEMIA PO PRN (21:25)
--- NOTE | 2020-06-20 22:36 | Hospitalist Progress Note ---
Date of Service June 20, 2020 Assessment & Plan (1) Sepsis: 2nd to left foot cellulitis, gangrene, osteomyelitis, and septic arthritis of first MTP joint. Ortho consult with Dr Maldonado much appreciated - POD #3 s/p extensive surgery on L foot. Echo without endocarditis. Blood cx's negative to date. Intra-op wound cx -- proteus with bacteroides. Appreciate [facility] ID consultation and recs. d/c vanco d/c zosyn change to ertapenam 1gm IV daily x 6 weeks. will need PICC. this will affect her disposition. (2) Gangrene of left foot: See above in sepsis. LLE arterial duplex study without focal occlusion of any specific vessel; diffuse atherosclerosis noted. POD #3 - s/p incision and Drainage abscess left first metatarsal phalangeal joint, irrigation and debridement plantar medial neuropathic ulcer first metatarsal phalangeal joint 4 cm x 3 cm x 0.4 cm, irrigation and debridement medial neuropathic ulcer first interphalangeal joint 12 mm x 14 mm x 3 mm, irrigation and debridement necrotic ulcers left great toe 2 separate sites including skin, subcutaneous tissue, fascia and periosteum, left foot tenosynovectomy septic flexor hallucis longus tendon Intra-op culture with pansens proteus & bacteroides see above appreciate ortho consult/assistance (3) Osteomyelitis: MRI left foot -- 1. Small focus of osteomyelitis within the distal medial aspect of the proximal phalanx of the left first toe. Additional sites of marrow edema within the left first metatarsal head, base of the proximal phalanx of the distal phalanx consistent with osteitis. 2. Left first metatarsophalangeal joint effusion with synovial enhancement. No associated bony destruction adjacent to the joint. This suggests synovitis and sterility cannot be assessed by MRI. 3. Wound along the plantar medial aspect of the left first metatarsophalangeal joint. Soft tissue edema consistent with cellulitis. POD #3 s/p extensive surgery L foot by Dr Maldonado -- see above (4) Cellulitis of great toe of left foot: Improved. Patient has a combination of cellulitis of the left great toe, a neuropathic ulcer of left great toe, and an ulcer on the plantar aspect overlying the first metatarsal head. Gangrene present left first metatarsal head region. Osteomyelitis present. Septic synovitis of left MTP joint, first. SEE ABOVE. Echo without obvious SBE. Blood cx's neg. Partial weight-bearing left foot only. (5) Weakness of both legs: suspect 2nd to sepsis rather than spinal cord lesion, etc neuro exam wnl since admission improved strength since admission with PT/OT needs rehab (6) Diabetes mellitus type 2, uncontrolled: adjust novolog once again (7) Chronic alcohol use: no evidence of withdrawal at this time cont thiamine - change to PO 200mg daily cont folate - 1mg daily cont MVI (8) Diabetic neuropathy: Severe. start gabapentin 200mg TID. (9) Pulmonary nodules/lesions, multiple: Seen on CT chest earlier this fall. etiology?? COVID was negative (antigen test) this admission and on past admission O2 sats stable in RA repeat COVID PCR negative as well needs f/u CT in the future (10) Hypomagnesemia: repleted and resolved K level rising - stop potassium supplementation recheck bmp am (11) Hyponatremia: etiology?? looks euvolemic today. check cortisol and TSH in am. check urine studies. (12) Acute hepatitis: LFTs are chronically elevated, but much worse at onset of this admission. INR was also worse at 1.6. Suspect Acute alcoholic hepatitis. HepC Ab 05/15 was negative. LFTs have improved. INR has improved s/p vit K. (13) Coagulopathy: 2nd to acute hepatitis (suspected). 1.6 INR at admission. s/p vitamin K with improved INR to 1.3. (14) Hypertension: Cont metoprolol xl. BETZAIDA on hold - bps acceptable w/o it (15) Acute metabolic encephalopathy: resolved was likely 2nd sepsis (16) Anemia: s/p 1 unit prcs this admission fecal occult neg h/h acceptable since then (17) DVT prophylaxis: heparin SC TID dispo planning case management working on this diligently Admission and Anticipated Discharge Date Admission Date: June 14, 2020 Subjective patient states "I don't feel well today." when asked what was giving her trouble/bothering her she couldn't be more specific. she said "I just don't feel well." did mention she felt "full" after eating tonight. staff report 2-3 episodes of diarrhea earlier today. no vomiting. no dyspnea. does have cough - no change from prior. having significant left foot pain. tele normal overnight. Review of Systems Constitutional: + fever (low grade ) and + weakness; no body aches Respiratory: no dyspnea Cardiovascular: no chest pain Gastrointestinal: + bloating and + nausea; no abdominal pain and no vomiting Physical Exam Constitutional: + not well developed, + not well nourished, no acute distress and + not healthy appearing ENMT: Mouth: + poor dentition; no oral mucosal abnormality and oral mucous membranes not dry Respiratory: normal respiratory effort, lungs clear to auscultation Cardiovascular: Rate/Rhythm: regular rate and regular rhythm Heart Sounds: normal S1, normal S2 and + murmur (3/6 holosystolic RUSB/apex) Vessels: posterior tibial pulses present (1+ b/l ) and dorsalis pedis pulses present (1+ b/l); no JVD Gastrointestinal (Abdomen): Inspection/Auscultation: normal bowel sounds; abdomen not distended Percussion/Palpation: abdomen soft; abdomen nontender Musculoskeletal: left foot wrapped in large dressing; not removed today Neurologic: Motor/Sensory: + tremor Psychiatric: Orientation: alert, oriented to person, oriented to place and oriented to time Results & Data Results & Data ([facility]) Vital Signs (Past 12 Hours) Vital Signs Temp Pulse Pulse Resp BP Pulse Ox 06/20/20 19:27 37.6 C H 78 24 131/65 98 06/20/20 16:19 37.1 C 70 23 137/73 100 06/20/20 16:00 70 06/20/20 12:00 37.2 C 73 18 152/73 H 98 Laboratory Results Laboratory Results - last 24 hr 06/19/20 06/20/20 06/20/20 Unknown 07:39 11:16 Sodium Potassium Chloride Carbon Dioxide Anion Gap BUN Creatinine Est Cr Clr Drug Dosing Est GFR ( Amer) Est GFR (Non-Af Amer) BUN/Creatinine Ratio Glucose POC Glucose 167 H Calcium Magnesium Stool Occult Bld Scrn Negative Vancomycin Trough 19.7 06/20/20 06/20/20 06/20/20 11:16 11:48 16:40 Sodium 128 L Potassium 5.0 Chloride 100 Carbon Dioxide 26 Anion Gap 2.0 L BUN 7 Creatinine 0.71 Est Cr Clr Drug Dosing 88.3 Est GFR ( Amer) 108.1 Est GFR (Non-Af Amer) 93.2 BUN/Creatinine Ratio 10.5 Glucose 138 H POC Glucose 152 H 164 H Calcium 8.0 L Magnesium 2.1 Stool Occult Bld Scrn Vancomycin Trough 06/20/20 06/20/20 06/20/20 21:11 21:13 21:38 Sodium Potassium Chloride Carbon Dioxide Anion Gap BUN Creatinine Est Cr Clr Drug Dosing Est GFR ( Amer) Est GFR (Non-Af Amer) BUN/Creatinine Ratio Glucose POC Glucose 60 L* 54 L* 77 Calcium Magnesium Stool Occult Bld Scrn Vancomycin Trough final wound culture with proteus and bacteroides PG Care Time/CCT Total # of Minutes Spent Total Time Spent with Patient: Total time spent is greater than 50% in coordination of care (as documented) at patient's floor/unit and/or counseling patient: Coding Level of Care Code 21145 Subseq Hosp Care Lvl 2 Diagnoses Sepsis A41.9 Gangrene of left foot I96 Osteomyelitis M86.9 Cellulitis of great toe of left foot L03.032 Weakness of both legs R29.898 Diabetes mellitus type 2, uncontrolled E11.65 Glycemic state: with hyperglycemia Chronic alcohol use Z72.89 Diabetic neuropathy E11.42 Diabetes mellitus complication detail: diabetic polyneuropathy Diabetes mellitus type: type 2 Pulmonary nodules/lesions, multiple R91.8 Hypomagnesemia E83.42 Hyponatremia E87.1 Acute hepatitis B17.9 Coagulopathy D68.9 Hypertension I10 Hypertension type: essential hypertension Acute metabolic encephalopathy G93.41 Anemia D64.9 DVT prophylaxis Z29.9 (1) Diabetic neuropathy Diabetes mellitus complication detail: diabetic polyneuropathy Diabetes mellitus type: type 2 Qualified Code(s): E11.42 - Type 2 diabetes mellitus with diabetic polyneuropathy (2) Diabetes mellitus type 2, uncontrolled Glycemic state: with hyperglycemia Qualified Code(s): E11.65 - Type 2 diabetes mellitus with hyperglycemia (3) Hypertension Hypertension type: essential hypertension Qualified Code(s): I10 - Essential (primary) hypertension
[2020-06-21] MEDS: HEPARIN SOD 5,000 UNIT/0.5 ML VIAL SQ SCH ×3 (06:09→21:28)
[2020-06-21 07:58] LABS: BUN Creatinine Ratio 9.6 (10-20); Calcium 8.3 mg/dl (8.5-10.1); Creatinine Clr Calc Pharmacy 90.8 ml/min; Est GFR (African American) 110.4; Est GFR (Non-African American) 95.3; Potassium 5.5 mmol/L (3.5-5.1)
[2020-06-21 08:00] LABS: Hematocrit (blood only) 30.4 % (37-47); Mean Corpuscular Hemoglobin 33.1 pg (25-34); Mean Corpuscular Hgb Conc 32.9 g/dL (32-36); Mean Corpuscular Volume 100.7 fL (80-100); Mean Platelet Volume 10.7 fL (7.4-10.4); Platelet Count 510 K/uL (130-400); RDW Standard Deviation 65.3 fL (36.4-46.3); Red Blood Count 3.02 M/uL (4.2-5.4)
[2020-06-21 08:08] LABS: C Reactive Protein 1.81 mg/dl (0-0.29); Thyroid Stimulating Hormone 6.49 uIu/ml (0.300-4.500)
[2020-06-21] MEDS: ADVANCED PROBIOTIC 1250 MG CAPSULE PO SCH (08:24)
[2020-06-21] MEDS: FERROUS GLUCONATE 324 MG TAB PO SCH ×2 (08:24→16:21)
[2020-06-21] MEDS: LACTULOSE SYRUP 10 GM/15 ML BTL 960 ML PO SCH (08:24)
[2020-06-21] MEDS: MULTIVITAMIN TAB PO SCH (08:24)
[2020-06-21] MEDS: DOCUSATE SODIUM 100 MG CAP PO SCH ×2 (08:24→21:23)
[2020-06-21 08:25] LABS: T4 Free Thyroxine 1.33 ng/dl (0.8-1.6)
[2020-06-21] MEDS: THIAMINE HCL 100 MG TAB PO SCH (08:25)
[2020-06-21] MEDS: oxyCODONE HCL IR 5 MG TAB (IMMEDIATE RELEASE) PO PRN ×2 (08:25→16:22)
[2020-06-21] MEDS: CHOLECALCIFEROL 1,000 UNITS 25 MCG TAB PO SCH (08:25)
[2020-06-21] MEDS: INSULIN ASPART 100 UNITS/ML 3 ML PEN SC SCH ×4 (08:33→21:28)
[2020-06-21] MEDS: INSULIN GLARGINE SOLOSTAR 100 UNITS/ML 3 ML PEN SC SCH ×2 (08:34→21:29)
[2020-06-21] MEDS ORDERED: SODIUM POLYSTYRENE SULFONATE 15G/60ML SUSP PO STA (08:45)
[2020-06-21] MEDS: GABAPENTIN 100 MG CAP PO SCH ×3 (10:01→21:23)
[2020-06-21] MEDS: FOLIC ACID 1 MG TAB PO SCH (10:01)
[2020-06-21] MEDS ORDERED: KETOROLAC 30 MG/ML VIAL IV ONE (17:09)
[2020-06-21 18:24] LABS: Potassium 4.5 mmol/L (3.5-5.1)
[2020-06-21 18:37] LABS: Uric Acid 2.9 mg/dl (2.6-7.2)
--- NOTE | 2020-06-21 18:43 | Hospitalist Progress Note ---
Date of Service June 21, 2020 Assessment & Plan (1) Sepsis: 2nd to left foot cellulitis, gangrene, osteomyelitis, and septic arthritis of first MTP joint. Ortho consult with Dr Maldonado much appreciated - POD #4 s/p extensive surgery on L foot. See Dr Maldonado's op note. Echo without endocarditis. Blood cx's negative to date. Intra-op wound cx -- proteus with bacteroides. Appreciate [facility] ID consultation and recs. Changed to IV ertapenam 1gm daily x 6 weeks on 06/20/20. will need PICC. this will affect her disposition. (2) Gangrene of left foot: See above in sepsis. LLE arterial duplex study without focal occlusion of any specific vessel; diffuse atherosclerosis noted. POD #4 - Dr Maldonado - s/p incision and Drainage abscess left first metatarsal phalangeal joint, irrigation and debridement plantar medial neuropathic ulcer first metatarsal phalangeal joint 4 cm x 3 cm x 0.4 cm, irrigation and debridement medial neuropathic ulcer first interphalangeal joint 12 mm x 14 mm x 3 mm, irrigation and debridement necrotic ulcers left great toe 2 separate sites including skin, subcutaneous tissue, fascia and periosteum, left foot tenosynovectomy septic flexor hallucis longus tendon Intra-op culture with pansens proteus & bacteroides see above appreciate ortho consult/assistance (3) Osteomyelitis: MRI left foot -- 1. Small focus of osteomyelitis within the distal medial aspect of the proximal phalanx of the left first toe. Additional sites of marrow edema within the left first metatarsal head, base of the proximal phalanx of the distal phalanx consistent with osteitis. 2. Left first metatarsophalangeal joint effusion with synovial enhancement. No associated bony destruction adjacent to the joint. This suggests synovitis and sterility cannot be assessed by MRI. 3. Wound along the plantar medial aspect of the left first metatarsophalangeal joint. Soft tissue edema consistent with cellulitis. POD #4 s/p extensive surgery L foot by Dr Maldonado -- see above (4) Cellulitis of great toe of left foot: The L great toe is much more erythematous than prior exams. Sed rate is also higher. Still having once- daily low grade fevers. Arterial doppler of LLE noted. The redness of great toe will need to be followed carefully. Continue IV ertapenem as above. POD #4 from extensive surgery also as above. Echo without obvious SBE. Blood cx's neg. Partial weight-bearing left foot only. (5) Weakness of both legs: suspect 2nd to sepsis neuro exam wnl since admission improved strength since admission cont PT/OT will need rehab (6) Diabetes mellitus type 2, uncontrolled: remains on basal-bolus insulin had lows on 06/20 lows now resolved glycemic control very adequate today (7) Chronic alcohol use: no evidence of withdrawal at this time cont thiamine 200mg daily cont folate 1mg daily cont MVI (8) Diabetic neuropathy: Severe. started gabapentin 200mg TID. titrate while here. (9) Pulmonary nodules/lesions, multiple: Seen on CT chest earlier this fall. etiology?? COVID was negative (antigen test) this admission and on past admission O2 sats stable in RA repeat COVID PCR negative as well needs f/u CT in the future (10) Hypomagnesemia: repleted and resolved (11) Hyponatremia: etiology?? looks euvolemic today. cortisol wnl TSH minimally elevated but fT4 wnl uric acid VERY low - this typically goes with SIADH check serum osm. check urine studies. place on 1500cc fluid restriction while awaiting above studies. bmp am (12) Acute hepatitis: LFTs are chronically elevated, but much worse at onset of this admission. INR was also worse at 1.6. Suspect Acute alcoholic hepatitis. HepC Ab 05/15 was negative. LFTs have improved. INR has improved s/p vit K. (13) Coagulopathy: 2nd to acute hepatitis (suspected). 1.6 INR at admission. s/p vitamin K with improved INR to 1.3. (14) Hypertension: Cont metoprolol xl. BETZAIDA on hold - bps acceptable w/o it (15) Acute metabolic encephalopathy: resolved was likely 2nd sepsis (16) Anemia: s/p 1 unit prcs this admission fecal occult neg h/h acceptable since then (17) Hyperkalemia: iatrogenic 2nd to K supplement and K-phos supplement both stopped kayexalate 15gm x 1 repeat K late in the day was wnl repeat BMP am (18) DVT prophylaxis: heparin SC TID dispo planning case management working on this diligently Admission and Anticipated Discharge Date Admission Date: June 14, 2020 Subjective uneventful day today main complaint is left foot pain - burning, throbbing had good BM just before my arrival tele [facility] overnight eating well no dyspnea no new complaints Review of Systems Constitutional: + fever; no chills, no fatigue and no anorexia Respiratory: + cough; no dyspnea and no dyspnea on exertion Cardiovascular: no chest pain Gastrointestinal: no abdominal pain, no nausea and no vomiting Physical Exam Constitutional: + not well developed, + not well nourished, no acute distress and + not healthy appearing ENMT: Mouth: + poor dentition; no oral mucosal abnormality and oral mucous membranes not dry Respiratory: normal respiratory effort, lungs clear to auscultation Cardiovascular: Rate/Rhythm: regular rate and regular rhythm Heart Sounds: normal S1, normal S2 and + murmur (3/6 holosystolic RUSB/apex) Vessels: posterior tibial pulses present (1+ b/l ) and dorsalis pedis pulses present (1+ b/l); no JVD Extremities: normal capillary refill (Brisk b/l feet ) Gastrointestinal (Abdomen): Inspection/Auscultation: normal bowel sounds; abdomen not distended Percussion/Palpation: abdomen soft; abdomen nontender Skin: left foot : dressings removed; intensely red great toe - actually is even more red in comparison to admission; ulceration with black overlying skin/tissue over medial aspect first toe; black eschar -like skin over first metatarsal head; sutures intact; no drainage; no odor Neurologic: Motor/Sensory: + tremor Psychiatric: Orientation: alert, oriented to person, oriented to place and oriented to time Results & Data Results & Data ([facility]) Vital Signs (Past 12 Hours) Vital Signs Temp Pulse Pulse Resp BP BP Pulse Ox 06/21/20 16:00 36.8 C 71 18 136/69 98 06/21/20 11:23 37.0 C 71 18 134/82 99 06/21/20 07:24 36.8 C 70 20 149/71 H 98 Laboratory Results Laboratory Results - last 24 hr 06/20/20 06/20/20 06/20/20 21:11 21:13 21:38 WBC RBC Hgb Hct MCV MCH MCHC RDW Std Deviation RDW Coeff of Francis Plt Count MPV ESR Sodium Potassium Chloride Carbon Dioxide Anion Gap BUN Creatinine Est Cr Clr Drug Dosing Est GFR ( Amer) Est GFR (Non-Af Amer) BUN/Creatinine Ratio Glucose POC Glucose 60 L* 54 L* 77 Uric Acid Calcium C-Reactive Protein TSH Free T4 Cortisol AM Sample 06/20/20 06/21/20 06/21/20 23:49 07:23 07:23 WBC 12.70 H RBC 3.02 L Hgb 10.0 L Hct 30.4 L MCV 100.7 H MCH 33.1 MCHC 32.9 RDW Std Deviation 65.3 H RDW Coeff of Francis 18.0 H Plt Count 510 H D MPV 10.7 H ESR 85 H Sodium Potassium Chloride Carbon Dioxide Anion Gap BUN Creatinine Est Cr Clr Drug Dosing Est GFR ( Amer) Est GFR (Non-Af Amer) BUN/Creatinine Ratio Glucose POC Glucose 98 Uric Acid Calcium C-Reactive Protein TSH Free T4 Cortisol AM Sample 06/21/20 06/21/20 06/21/20 07:23 07:23 07:31 WBC RBC Hgb Hct MCV MCH MCHC RDW Std Deviation RDW Coeff of Francis Plt Count MPV ESR Sodium 130 L Potassium 5.5 H Chloride 101 Carbon Dioxide 26 Anion Gap 3.0 BUN 7 Creatinine 0.69 Est Cr Clr Drug Dosing 90.8 Est GFR ( Amer) 110.4 Est GFR (Non-Af Amer) 95.3 BUN/Creatinine Ratio 9.6 L Glucose 92 POC Glucose 100 H Uric Acid Calcium 8.3 L C-Reactive Protein 1.81 H TSH 6.490 H Free T4 1.33 Cortisol AM Sample 25.72 H 06/21/20 06/21/20 06/21/20 11:50 16:44 17:54 WBC RBC Hgb Hct MCV MCH MCHC RDW Std Deviation RDW Coeff of Francis Plt Count MPV ESR Sodium Potassium 4.5 D Chloride Carbon Dioxide Anion Gap BUN Creatinine Est Cr Clr Drug Dosing Est GFR ( Amer) Est GFR (Non-Af Amer) BUN/Creatinine Ratio Glucose POC Glucose 151 H 156 H Uric Acid 2.9 Calcium C-Reactive Protein TSH Free T4 Cortisol AM Sample PG Care Time/CCT Total # of Minutes Spent Total Time Spent with Patient: Total time spent is greater than 50% in coordination of care (as documented) at patient's floor/unit and/or counseling patient: Coding Level of Care Code 50419 Subseq Hosp Care Lvl 3 Diagnoses Sepsis A41.9 Gangrene of left foot I96 Osteomyelitis M86.9 Cellulitis of great toe of left foot L03.032 Weakness of both legs R29.898 Diabetes mellitus type 2, uncontrolled E11.65 Glycemic state: with hyperglycemia Chronic alcohol use Z72.89 Diabetic neuropathy E11.42 Diabetes mellitus complication detail: diabetic polyneuropathy Diabetes mellitus type: type 2 Pulmonary nodules/lesions, multiple R91.8 Hypomagnesemia E83.42 Hyponatremia E87.1 Acute hepatitis B17.9 Coagulopathy D68.9 Hypertension I10 Hypertension type: essential hypertension Acute metabolic encephalopathy G93.41 Anemia D64.9 Hyperkalemia E87.5 DVT prophylaxis Z29.9 (1) Diabetic neuropathy Diabetes mellitus complication detail: diabetic polyneuropathy Diabetes salome fatima type: type 2 Qualified Code(s): E11.42 - Type 2 diabetes mellitus with diabetic polyneuropathy (2) Diabetes mellitus type 2, uncontrolled Glycemic state: with hyperglycemia Qualified Code(s): E11.65 - Type 2 diabetes mellitus with hyperglycemia (3) Hypertension Hypertension type: essential hypertension Qualified Code(s): I10 - Essential (primary) hypertension
[2020-06-21] MEDS ORDERED: KETOROLAC TROMETHAMINE 15 MG/ML VIAL IV PRN (20:24)
[2020-06-21] MEDS: SENNA 8.6 MG TAB PO SCH (21:23)
[2020-06-21] MEDS: ERTAPENEM SODIUM 1,000 MG in SODIUM CHLORIDE 0.9% 50 ML IV SCH (21:35)
[2020-06-22] MEDS: HEPARIN SOD 5,000 UNIT/0.5 ML VIAL SQ SCH ×3 (05:58→20:35)
[2020-06-22] MEDS: INSULIN ASPART 100 UNITS/ML 3 ML PEN SC SCH ×4 (08:27→20:34)
[2020-06-22] MEDS: THIAMINE HCL 100 MG TAB PO SCH (08:29)
[2020-06-22] MEDS: FERROUS GLUCONATE 324 MG TAB PO SCH ×2 (08:29→16:42)
[2020-06-22] MEDS: FOLIC ACID 1 MG TAB PO SCH (08:29)
[2020-06-22] MEDS: MULTIVITAMIN TAB PO SCH (08:29)
[2020-06-22] MEDS: CHOLECALCIFEROL 1,000 UNITS 25 MCG TAB PO SCH (08:29)
[2020-06-22] MEDS: ADVANCED PROBIOTIC 1250 MG CAPSULE PO SCH (08:29)
[2020-06-22] MEDS: DOCUSATE SODIUM 100 MG CAP PO SCH ×2 (08:30→20:34)
[2020-06-22] MEDS: LACTULOSE SYRUP 10 GM/15 ML BTL 960 ML PO SCH (08:30)
[2020-06-22] MEDS: INSULIN GLARGINE SOLOSTAR 100 UNITS/ML 3 ML PEN SC SCH ×2 (08:31→20:34)
[2020-06-22] MEDS: GABAPENTIN 100 MG CAP PO SCH ×3 (08:32→20:35)
[2020-06-22 09:02] LABS: BUN Creatinine Ratio 13.1 (10-20); Calcium 8.4 mg/dl (8.5-10.1); Creatinine Clr Calc Pharmacy 85.9 ml/min; Est GFR (African American) 112.1; Est GFR (Non-African American) 96.7; Potassium 4.8 mmol/L (3.5-5.1)
--- NOTE | 2020-06-22 15:32 | Hospitalist Progress Note ---
Date of Service June 22, 2020 Assessment & Plan (1) Sepsis: 2nd to left foot cellulitis, gangrene, osteomyelitis, and septic arthritis of first MTP joint. Ortho consult with Dr Maldonado much appreciated - POD #5 s/p extensive surgery on L foot. See Dr Maldonado's op note. Echo without endocarditis. Blood cx's negative to date. Intra-op wound cx -- proteus with bacteroides. Appreciate [facility] ID consultation and recs. Changed to IV ertapenam 1gm daily x 6 weeks on 06/20/20. consented for PICC line today, anticipate getting this weekend stable for discharge to facility once she is accepted, anticipate Monday 06/25 at the earliest (2) Gangrene of left foot: See above in sepsis. LLE arterial duplex study without focal occlusion of any specific vessel; diffuse atherosclerosis noted. POD #5 - Dr Maldonado - s/p incision and Drainage abscess left first metatarsal phalangeal joint, irrigation and debridement plantar medial neuropathic ulcer first metatarsal phalangeal joint 4 cm x 3 cm x 0.4 cm, irrigation and debridement medial neuro pathic ulcer first interphalangeal joint 12 mm x 14 mm x 3 mm, irrigation and debridement necrotic ulcers left great toe 2 separate sites including skin, subcutaneous tissue, fascia and periosteum, left foot tenosynovectomy septic flexor hallucis longus tendon Intra-op culture with pansensitive proteus & bacteroides continue Ertapenem for 6 weeks total appreciate ortho consult/assistance (3) Osteomyelitis: MRI left foot -- 1. Small focus of osteomyelitis within the distal medial aspect of the proximal phalanx of the left first toe. Additional sites of marrow edema within the left first metatarsal head, base of the proximal phalanx of the distal phalanx consistent with osteitis. 2. Left first metatarsophalangeal joint effusion with synovial enhancement. No associated bony destruction adjacent to the joint. This suggests synovitis and sterility cannot be assessed by MRI. 3. Wound along the plantar medial aspect of the left first metatarsophalangeal joint. Soft tissue edema consistent with cellulitis. POD #5 s/p extensive surgery L foot by Dr Maldonado -- see above (4) Cellulitis of great toe of left foot: resolving after surgery POD #5 from extensive surgery also as above. Echo without obvious SBE. Blood cx's neg. Partial weight-bearing left foot only. (5) Weakness of both legs: suspect 2nd to sepsis neuro exam wnl since admission improved strength since admission cont PT/OT will need rehab, [facility] (6) Diabetes mellitus type 2, uncontrolled: remains on basal-bolus insulin had lows on 06/20 lows now resolved glycemic control very adequate past two days (7) Chronic alcohol use: no evidence of withdrawal at this time cont thiamine 200mg daily cont folate 1mg daily cont MVI (8) Diabetic neuropathy: Severe. started gabapentin 200mg TID. titrate up tomorrow to 300mg TID (9) Pulmonary nodules/lesions, multiple: Seen on CT chest earlier this fall. etiology?? COVID was negative (antigen test) this admission and on past admission O2 sats stable in RA repeat COVID PCR negative as well needs f/u CT in the future (10) Hypomagnesemia: repleted and resolved (11) Hyponatremia: etiology?? looks euvolemic today. cortisol wnl TSH minimally elevated but fT4 wnl uric acid VERY low - this typically goes with SIADH check serum osm 272 urine osm INAPPROPRIATELY high at 454 and urine sodium low at 20 place on sodium 1gm daily continue 1500cc fluid restriction bmp am (12) Acute hepatitis: LFTs are chronically elevated, but much worse at onset of this admission. INR was also worse at 1.6. Suspect Acute alcoholic hepatitis. HepC Ab 05/15 was negative. LFTs have improved. INR has improved s/p vit K. (13) Coagulopathy: 2nd to acute hepatitis (suspected). 1.6 INR at admission. s/p vitamin K with improved INR to 1.3. (14) Hypertension: Cont metoprolol xl. BETZAIDA on hold - bps acceptable w/o it (15) Acute metabolic encephalopathy: resolved was likely 2nd sepsis (16) Anemia: s/p 1 unit prcs this admission fecal occult neg h/h acceptable since then (17) Hyperkalemia: iatrogenic 2nd to K supplement and K-phos supplement both stopped l K is 4.8 today (18) DVT prophylaxis: heparin SC TID dispo planning case management working on this diligently Admission and Anticipated Discharge Date Admission Date: June 14, 2020 Subjective patient stable today, no acute issues overnight she says her left foot is not painful, typically gets some pain in the afternoon and evening breathing is stable, no chest pain, no fever/chills eating fairly well, she had a BM this morning consented her for PICC line to be placed this weekend CM looking into [facility] rehab and IV Ertapenem Review of Systems Review of Systems: All systems reviewed & are unremarkable except as noted in Subjective Musculoskeletal: + joint pain (left foot pain) Physical Exam Constitutional: well developed and + thin; no acute distress Neck: trachea midline, no thyromegaly Respiratory: normal respiratory effort, lungs clear to auscultation Cardiovascular: RRR, no murmur, no edema Gastrointestinal (Abdomen): normal bowel sounds, soft, nontender, no hepatosplenomegaly Musculoskeletal: no cyanosis or clubbing, extremities motor strength 5/5 Skin: + wound (left foot, wrapped) Neurologic: patellar DTR's 2+ bilat, sensation intact and PERRL, EOMI, accommodation nl, no face palsy, no dysarthria Psychiatric: A+Ox3, euthymic affect Lymphatic: no cervical or axillary lymphadenopathy Results & Data Results & Data ([facility]) Vital Signs (Past 12 Hours) Vital Signs Temp Pulse Pulse Resp BP BP Pulse Ox 06/22/20 11: 36.8 C 76 20 166/83 H 171/80 H 99 06/22/20 07:41 74 06/22/20 07:14 36.7 C 75 20 163/74 H 99 Laboratory Results Laboratory Results - last 24 hr 06/21/20 06/21/20 06/21/20 16:44 17:54 20:01 Sodium Potassium 4.5 D Chloride Carbon Dioxide Anion Gap BUN Creatinine Est Cr Clr Drug Dosing Est GFR ( Amer) Est GFR (Non-Af Amer) BUN/Creatinine Ratio Glucose POC Glucose 156 H 197 H Osmolality Uric Acid 2.9 Calcium Urine Osmolality Ur Random Sodium 06/22/20 06/22/20 06/22/20 06:09 06:09 07:24 Sodium Potassium Chloride Carbon Dioxide Anion Gap BUN Creatinine Est Cr Clr Drug Dosing Est GFR ( Amer) Est GFR (Non-Af Amer) BUN/Creatinine Ratio Glucose POC Glucose 155 H Osmolality Uric Acid Calcium Urine Osmolality 454 L Ur Random Sodium 20 06/22/20 06/22/20 06/22/20 07:47 07:47 11:29 Sodium 129 L Potassium 4.8 Chloride 99 Carbon Dioxide 29 Anion Gap 1.0 L BUN 9 Creatinine 0.66 Est Cr Clr Drug Dosing 85.9 Est GFR ( Amer) 112.1 Est GFR (Non-Af Amer) 96.7 BUN/Creatinine Ratio 13.1 Glucose 133 H POC Glucose 76 Osmolality 272 L Uric Acid Calcium 8.4 L Urine Osmolality Ur Random Sodium Medications Administered Current Inpatient Medications Bisacodyl (Bisacodyl 10 Mg Supp) 10 mg PA DAILY PRN PRN Reason: Constipation Stop: 07/17/20 12:03 Dextrose (Dextrose 50% 50 Ml Syringe) 25 - 50 ml IV UD PRN; Protocol PRN Reason: Hypoglycemia Protocol Stop: 07/15/20 20:44 Docusate Sodium (Docusate Sodium 100 Mg Cap) 100 mg PO BID [facility] Stop: 07/17/20 20:59 Last Admin: 06/22/20 08:30 Dose: 100 mg Documented by: Ferrous Gluconate (Ferrous Gluconate 324 Mg Tab) 324 mg PO BIDM [facility] Stop: 07/17/20 16:59 Last Admin: 06/22/20 08:29 Dose: 324 mg Documented by: Folic Acid (Folic Acid 1 Mg Tab) 1 mg PO QAM MARYBETH Stop: 07/21/20 09:14 Last Admin: 06/22/20 08:29 Dose: 1 mg Documented by: Gabapentin (Gabapentin 100 Mg Cap) 200 mg PO TID [facility] Stop: 07/21/20 09:09 Last Admin: 06/22/20 13:40 Dose: 200 mg Documented by: Glucagon (Glucagon For Inj 1 Mg Vial) 1 mg IM UD PRN; Protocol PRN Reason: Hypoglycemia Protocol Stop: 07/15/20 20:44 Glucose (Glucose 40% Gel 15 Gm Tube) 15 - 30 gm PO UD PRN; Protocol PRN Reason: Hypoglycemia Protocol Stop: 07/15/20 20:44 Glucose (Glucose 10 Tabs/Tube) 4 - 8 tabs PO UD PRN; Protocol PRN Reason: Hypoglycemia Protocol Stop: 07/15/20 20:44 Heparin Sodium (Porcine) (Heparin Sod 5,000 Unit/0.5 Ml Vial) 5,000 units SQ Q8 MARYBETH Stop: 07/20/20 13:59 Last Admin: 06/22/20 13:39 Dose: 5,000 units Documented by: Lorazepam (Ativan) 1 mg in 2 mls @ 2 mls/min IV ONE PRN; Protocol PRN Reason: EtoH Withdrawal AWSS 6-10 Stop: 07/14/20 20:26 Last Admin: 06/14/20 21:30 Dose: 2 mls/min Documented by: Ertapenem 1,000 mg/ Sodium (Chloride) 60 mls @ 100 mls/hr IV Q24H [facility] Stop: 08/01/20 20:59 Last Infusion: 06/21/20 22:16 Dose: Infused Documented by: Insulin Aspart (Insulin Aspart 100 Units/Ml 3 Ml Pen) 0 units SC ACHS [facility] Stop: 07/14/20 20:59 Last Admin: 06/22/20 11:58 Dose: 3 units Documented by: Insulin Glargine (Insulin Glargine Solostar 100 Units/Ml 3 Ml Pen) 20 units SC HS [facility] Stop: 07/14/20 20:59 Last Admin: 06/21/20 21:29 Dose: 20 units Documented by: Insulin Glargine (Insulin Glargine Solostar 100 Units/Ml 3 Ml Pen) 10 units SC QAM [facility] Stop: 07/15/20 09:44 Last Admin: 06/22/20 08:31 Dose: 10 units Documented by: Ketorolac Tromethamine (Ketorolac Tromethamine 15 Mg/Ml Vial) 15 mg IV Q6H PRN PRN Reason: Pain Stop: 06/26/20 20:23 Lactobacillus Acidoph/Casei/Rhamnos (Advanced Probiotic 1250 Mg Capsule) 2 cap PO DAILY [facility] Stop: 07/15/20 08:59 Last Admin: 06/22/20 08:29 Dose: 2 cap Documented by: Lactulose (Lactulose Syrup 10 Gm/15 Ml Btl 960 Ml) 15 gm PO DAILY [facility] Stop: 07/15/20 20:14 Last Admin: 06/22/20 08:30 Dose: 15 gm Documented by: Lisinopril (Lisinopril 10 Mg Tab) 10 mg PO DAILY [facility] Stop: 07/15/20 08:59 Last Admin: 06/16/20 08:13 Dose: 10 mg Documented by: Lorazepam (Lorazepam 1 Mg Tab) 1 mg PO ONE PRN; Protocol PRN Reason: EtoH Withdrawal AWSS 6-10 Magnesium Hydroxide (Magnesium Hydroxide Susp 30 Ml Udc) 30 ml PO Q6H PRN PRN Reason: Constipation Stop: 07/17/20 12:03 Metoclopramide HCl (Metoclopramide Hcl Inj 5 Mg/Ml 2 Ml Vial) 10 mg IV Q6H PRN PRN Reason: Nausea And Vomiting Stop: 07/17/20 12:03 Metoprolol Succinate (Metoprolol Succ 25mg Ext Rel Tab) 25 mg PO DAILY [facility] Stop: 07/14/20 20:26 Last Admin: 06/16/20 08:13 Dose: 25 mg Documented by: Miscellaneous (Carbohydrates For Hypoglycemia ) 15 - 30 gm PO UD PRN PRN Reason: Hypoglycemia Treatment Stop: 07/15/20 20:44 Last Admin: 06/20/20 21:25 Dose: 15 gm Documented by: Multivitamins (Multivitamin Tab) 1 tab PO QAM MARYBETH Stop: 07/18/20 08:59 Last Admin: 06/22/20 08:29 Dose: 1 tab Documented by: Naloxone HCl (Naloxone Hcl 0.4 Mg/1 Ml Vial/Carp) 0.1 mg IV Q5M PRN PRN Reason: Oversedation/Resp Depression Stop: 07/17/20 12:03 Ondansetron HCl (Ondansetron Inj 2 Mg/Ml 2 Ml Vial) 4 mg IV Q6H PRN PRN Reason: Nausea Stop: 07/14/20 20:26 Oxycodone HCl (Oxycodone Hcl Ir 5 Mg Tab (Immediate Release)) 5 - 10 mg PO Q4H PRN PRN Reason: Pain or Pre PT Stop: 07/01/20 12:03 Last Admin: 06/21/20 16:22 Dose: 10 mg Documented by: Sennosides (Senna 8.6 Mg Tab) 17.2 mg PO HS [facility] Stop: 07/17/20 20:59 Last Admin: 06/21/20 21:23 Dose: Not Given Documented by: Thiamine HCl (Thiamine Hcl 100 Mg Tab) 200 mg PO QAM MARYBETH Stop: 07/21/20 08:59 Last Admin: 06/22/20 08:29 Dose: 200 mg Documented by: Vitamin D (Cholecalciferol 1,000 Units 25 Mcg Tab) 2,000 units PO DAILY [facility] Stop: 07/15/20 08:59 Last Admin: 06/22/20 08:29 Dose: 2,000 units Documented by: PG Care Time/CCT Total # of Minutes Spent Total Time Spent with Patient: Total time spent is greater than 50% in coordination of care (as documented) at patient's floor/unit and/or counseling patient: Coding Level of Care Code 80293 Subseq Hosp Care Lvl 3 Diagnoses Sepsis A41.9 Gangrene of left foot I96 Osteomyelitis M86.9 Cellulitis of great toe of left foot L03.032 Weakness of both legs R29.898 Diabetes mellitus type 2, uncontrolled E11.65 Glycemic state: with hyperglycemia Chronic alcohol use Z72.89 Diabetic neuropathy E11.42 Diabetes mellitus type: type 2 Diabetes mellitus complication detail: diabetic polyneuropathy Pulmonary nodules/lesions, multiple R91.8 Hypomagnesemia E83.42 Hyponatremia E87.1 Acute hepatitis B17.9 Coagulopathy D68.9 Hypertension I10 Hypertension type: essential hypertension Acute metabolic encephalopathy G93.41 Anemia D64.9 Hyperkalemia E87.5 DVT prophylaxis Z29.9 (1) Diabetes mellitus type 2, uncontrolled Glycemic state: with hyperglycemia Qualified Code(s): E11.65 - Type 2 diabetes mellitus with hyperglycemia (2) Diabetic neuropathy Diabetes mellitus type: type 2 Diabetes mellitus complication detail: diabetic polyneuropathy Qualified Code(s): E11.42 - Type 2 diabetes mellitus with diabetic polyneuropathy (3) Hypertension Hypertension type: essential hypertension Qualified Code(s): I10 - Essential (primary) hypertension
--- NOTE | 2020-06-22 15:51 | XRay Report ---
SINGLE VIEW CHEST CLINICAL HISTORY: PICC placement. FINDINGS: An AP, portable, upright chest radiograph is compared to study dated 06/14/2020. Correlatio n is made with chest CT dated 04/27/2020. A right-sided PICC line has been placed. The tip extends int o the internal jugular vein and repositioning is indicated. The heart is top normal in size noting at herosclerotic calcification of the thoracic aorta. There is pulmonary vascular congestion. There are small layering pleural effusions with bibasilar consolidation. Trace fluid is seen along the right mi nor fissure. No pneumothorax is seen. The skeletal structures are osteopenic. The bony thorax is leeanna sly intact. IMPRESSION: 1. A right-sided PICC line has been placed. This extends superiorly into the internal jugular vein an d repositioning is indicated. 2. There is evidence of congestive failure. 3. There are layering pleural effusions with bibasilar consolidation. ACT 112: Negative or not required by law. Electronically signed by: Leo Fields M.D. 06/22/2020 3:49 PM
[2020-06-22] MEDS: ERTAPENEM SODIUM 1,000 MG in SODIUM CHLORIDE 0.9% 50 ML IV SCH (20:33)
[2020-06-22] MEDS: SENNA 8.6 MG TAB PO SCH (20:35)
[2020-06-23] MEDS: HEPARIN SOD 5,000 UNIT/0.5 ML VIAL SQ SCH ×3 (05:44→20:41)
[2020-06-23 06:46] LABS: BUN Creatinine Ratio 14.7 (10-20); Calcium 8.2 mg/dl (8.5-10.1); Creatinine Clr Calc Pharmacy 104.5 ml/min; Est GFR (African American) 116.3; Est GFR (Non-African American) 100.3; Potassium 4.7 mmol/L (3.5-5.1)
[2020-06-23] MEDS ORDERED: SODIUM CHLORIDE 1 GM TABLET PO SCH (09:00)
[2020-06-23] MEDS: MULTIVITAMIN TAB PO SCH (09:06)
[2020-06-23] MEDS: ADVANCED PROBIOTIC 1250 MG CAPSULE PO SCH (09:06)
[2020-06-23] MEDS: THIAMINE HCL 100 MG TAB PO SCH (09:06)
[2020-06-23] MEDS: FOLIC ACID 1 MG TAB PO SCH (09:06)
[2020-06-23] MEDS: CHOLECALCIFEROL 1,000 UNITS 25 MCG TAB PO SCH (09:06)
[2020-06-23] MEDS: FERROUS GLUCONATE 324 MG TAB PO SCH ×2 (09:06→17:39)
[2020-06-23] MEDS: DOCUSATE SODIUM 100 MG CAP PO SCH ×2 (09:07→20:38)
[2020-06-23] MEDS: LACTULOSE SYRUP 10 GM/15 ML BTL 960 ML PO SCH (09:07)
[2020-06-23] MEDS: INSULIN ASPART 100 UNITS/ML 3 ML PEN SC SCH ×4 (09:07→21:28)
[2020-06-23] MEDS: INSULIN GLARGINE SOLOSTAR 100 UNITS/ML 3 ML PEN SC SCH ×2 (09:07→21:30)
[2020-06-23] MEDS: GABAPENTIN 100 MG CAP PO SCH (09:13)
[2020-06-23] MEDS: oxyCODONE HCL IR 5 MG TAB (IMMEDIATE RELEASE) PO PRN ×2 (09:36→20:39)
--- NOTE | 2020-06-23 11:26 | Hospitalist Progress Note ---
Date of Service June 23, 2020 Assessment & Plan (1) Sepsis: 2nd to left foot cellulitis, gangrene, osteomyelitis, and septic arthritis of first MTP joint. Ortho consult with Dr Maldonado much appreciated - POD #6 s/p extensive surgery on L foot. See Dr Maldonado's op note. Echo without endocarditis. Blood cx's negative to date. Intra-op wound cx -- proteus with bacteroides. Appreciate [facility] ID consultation and recs. Changed to IV ertapenam 1gm daily x 6 weeks on 06/20/20. PICC line placed in right upper extremity 06/22 stable for discharge to facility once she is accepted, anticipate Monday 06/25 at the earliest, need to call [facility] and [facility] (2) Gangrene of left foot: See above in sepsis. LLE arterial duplex study without focal occlusion of any specific vessel; diffuse atherosclerosis noted. POD #6 - Dr Maldonado - s/p incision and Drainage abscess left first metatarsal phalangeal joint, irrigation and debridement plantar medial neuropathic ulcer first metatarsal phalangeal joint 4 cm x 3 cm x 0.4 cm, irrigation and debridement medial neuropathic ulcer first interphalangeal joint 12 mm x 14 mm x 3 mm, irrigation and debridement necrotic ulcers left great toe 2 separate sites including skin, subcutaneous tissue, fascia and periosteum, left foot tenosynovectomy septic flexor hallucis longus tendon Intra-op culture with pansensitive proteus & bacteroides continue Ertapenem for 6 weeks total appreciate ortho consult/assistance (3) Osteomyelitis: MRI left foot -- 1. Small focus of osteomyelitis within the distal medial aspect of the proximal phalanx of the left first toe. Additional sites of marrow edema within the left first metatarsal head, base of the proximal phalanx of the distal phalanx consistent with osteitis. 2. Left first metatarsophalangeal joint effusion with synovial enhancement. No associated bony destruction adjacent to the joint. This suggests synovitis and sterility cannot be assessed by MRI. 3. Wound along the plantar medial aspect of the left first metatarsophalangeal joint. Soft tissue edema consistent with cellulitis. POD #6 s/p extensive surgery L foot by Dr Maldonado -- see above (4) Cellulitis of great toe of left foot: resolving after surgery POD #6 from extensive surgery also as above. Echo without obvious SBE. Blood cx's neg. Partial weight-bearing left foot only. (5) Weakness of both legs: suspect 2nd to sepsis neuro exam wnl since admission improved strength since admission cont PT/OT will need rehab, [facility] (6) Diabetes mellitus type 2, uncontrolled: remains on basal-bolus insulin had lows on 06/20 glycemic control very adequate past two days (7) Chronic alcohol use: no evidence of withdrawal at this time cont thiamine 200mg daily cont folate 1mg daily cont MVI (8) Diabetic neuropathy: Severe. started gabapentin 200mg TID. titrate up to 300mg TID (9) Pulmonary nodules/lesions, multiple: Seen on CT chest earlier this fall. etiology?? COVID was negative (antigen test) this admission and on past admission O2 sats stable in RA repeat COVID PCR negative as well needs f/u CT in the future (10) Hypomagnesemia: repleted and resolved (11) Hyponatremia: etiology?? looks euvolemic during her stay cortisol wnl TSH minimally elevated but fT4 wnl uric acid VERY low - this typically goes with SIADH check serum osm -- 272 on 06/22 urine osm INAPPROPRIATELY high at 454 and urine sodium low at 20 place on sodium 1gm BID continue 1800cc fluid restriction Na is 133 this morning, adequately controlled (12) Acute hepatitis: LFTs are chronically elevated, but much worse at onset of this admission. INR was also worse at 1.6. Suspect Acute alcoholic hepatitis. HepC Ab 05/15 was negative. LFTs have improved. INR has improved s/p vit K. (13) Coagulopathy: 2nd to acute hepatitis (suspected). 1.6 INR at admission. s/p vitamin K with improved INR to 1.3. (14) Hypertension: Cont metoprolol xl. BETZAIDA on hold - bps acceptable w/o it (15) Acute metabolic encephalopathy: resolved was likely 2nd sepsis (16) Anemia: s/p 1 unit prcs this admission fecal occult neg h/h acceptable since then (17) Hyperkalemia: iatrogenic 2nd to K supplement and K-phos supplement both stopped l K is 4.7 today (18) DVT prophylaxis: heparin SC TID dispo planning case management working on this diligently Admission and Anticipated Discharge Date Admission Date: June 14, 2020 Subjective patient sitting up in chair, feels well, minimal pain in left foot as it is propped up on the bed no shortness of breath, no fever, no chills, no cough, no chest pain eating well, no abdominal pain or nausea reviewed labs, Na up to 133, patient asking for a little more to drink, will liberalize fluid intake slightly discussed with CM, plan to make phone called to [facility] on Thursday, no other plans for weekend Review of Systems Review of Systems: All systems reviewed & are unremarkable except as noted in Subjective Physical Exam Constitutional: well developed and + thin; no acute distress Neck: trachea midline, no thyromegaly Respiratory: normal respiratory effort, lungs clear to auscultation Cardiovascular: RRR, no murmur, no edema Gastrointestinal (Abdomen): normal bowel sounds, soft, nontender, no hepatosplenomegaly Musculoskeletal: no cyanosis or clubbing, extremities motor strength 5/5 Skin: + wound (left foot, wrapped) Neurologic: patellar DTR's 2+ bilat, sensation intact and PERRL, EOMI, accommodation nl, no face palsy, no dysarthria Psychiatric: A+Ox3, euthymic affect Lymphatic: no cervical or axillary lymphadenopathy Results & Data Results & Data ([facility]) Vital Signs (Past 12 Hours) Vital Signs Temp Pulse Pulse Pulse Resp BP BP 06/23/20 08:16 36.8 C 77 18 173/78 H 06/23/20 03:36 36.6 C 77 19 165/72 H 06/23/20 00:36 74 Pulse Ox 06/23/20 08:16 96 06/23/20 03:36 94 06/23/20 00:36 Laboratory Results Laboratory Results - last 24 hr 06/22/20 06/22/20 06/22/20 11:29 16:51 20:09 Sodium Potassium Chloride Carbon Dioxide Anion Gap BUN Creatinine Est Cr Clr Drug Dosing Est GFR ( Amer) Est GFR (Non-Af Amer) BUN/Creatinine Ratio Glucose POC Glucose 76 110 H 86 Calcium 06/23/20 06/23/20 05:27 07:34 Sodium 133 L Potassium 4.7 Chloride 101 Carbon Dioxide 28 Anion Gap 4.0 BUN 9 Creatinine 0.59 L Est Cr Clr Drug Dosing 104.5 Est GFR ( Amer) 116.3 Est GFR (Non-Af Amer) 100.3 BUN/Creatinine Ratio 14.7 Glucose 69 L POC Glucose 86 Calcium 8.2 L Medications Administered Current Inpatient Medications Bisacodyl (Bisacodyl 10 Mg Supp) 10 mg [place] DAILY PRN PRN Reason: Constipation Stop: 07/17/20 12:03 Dextrose (Dextrose 50% 50 Ml Syringe) 25 - 50 ml IV UD PRN; Protocol PRN Reason: Hypoglycemia Protocol Stop: 07/15/20 20:44 Docusate Sodium (Docusate Sodium 100 Mg Cap) 100 mg PO BID MARYBETH Stop: 07/17/20 20:59 Last Admin: 06/23/20 09:07 Dose: Not Given Documented by: Ferrous Gluconate (Ferrous Gluconate 324 Mg Tab) 324 mg PO BIDM MARYBETH Stop: 07/17/20 16:59 Last Admin: 06/23/20 09:06 Dose: 324 mg Documented by: Folic Acid (Folic Acid 1 Mg Tab) 1 mg PO QAM [facility] Stop: 07/21/20 09:14 Last Admin: 06/23/20 09:06 Dose: 1 mg Documented by: Gabapentin (Gabapentin 100 Mg Cap) 200 mg PO TID [facility] Stop: 07/21/20 09:09 Last Admin: 06/23/20 09:13 Dose: 200 mg Documented by: Glucagon (Glucagon For Inj 1 Mg Vial) 1 mg IM UD PRN; Protocol PRN Reason: Hypoglycemia Protocol Stop: 07/15/20 20:44 Glucose (Glucose 40% Gel 15 Gm Tube) 15 - 30 gm PO UD PRN; Protocol PRN Reason: Hypoglycemia Protocol Stop: 07/15/20 20:44 Glucose (Glucose 10 Tabs/Tube) 4 - 8 tabs PO UD PRN; Protocol PRN Reason: Hypoglycemia Protocol Stop: 07/15/20 20:44 Heparin Sodium (Beef Lung) (Heparin 10 Unit/Ml 5 Ml Flush) 5 ml FLUSH PRN PRN PRN Reason: Flush Stop: 07/22/20 16:47 Last Admin: 06/23/20 05:27 Dose: 5 ml Documented by: Heparin Sodium (Porcine) (Heparin Sod 5,000 Unit/0.5 Ml Vial) 5,000 units SQ Q8 MARYBETH Stop: 07/20/20 13:59 Last Admin: 06/23/20 05:44 Dose: 5,000 units Documented by: Lorazepam (Ativan) 1 mg in 2 mls @ 2 mls/min IV ONE PRN; Protocol PRN Reason: EtoH Withdrawal AWSS 6-10 Stop: 07/14/20 20:26 Last Admin: 06/14/20 21:30 Dose: 2 mls/min Documented by: Ertapenem 1,000 mg/ Sodium (Chloride) 60 mls @ 100 mls/hr IV Q24H [facility] Stop: 08/01/20 20:59 Last Infusion: 06/22/20 21:53 Dose: Infused Documented by: Insulin Aspart (Insulin Aspart 100 Units/Ml 3 Ml Pen) 0 units SC ACHS MARYBETH Stop: 07/14/20 20:59 Last Admin: 06/23/20 09:07 Dose: 4 units Documented by: Insulin Glargine (Insulin Glargine Solostar 100 Units/Ml 3 Ml Pen) 20 units SC HS [facility] Stop: 07/14/20 20:59 Last Admin: 06/22/20 20:34 Dose: 20 units Documented by: Insulin Glargine (Insulin Glargine Solostar 100 Units/Ml 3 Ml Pen) 10 units SC QAM [facility] Stop: 07/15/20 09:44 Last Admin: 06/23/20 09:07 Dose: 10 units Documented by: Ketorolac Tromethamine (Ketorolac Tromethamine 15 Mg/Ml Vial) 15 mg IV Q6H PRN PRN Reason: Pain Stop: 06/26/20 20:23 Lactobacillus Acidoph/Casei/Rhamnos (Advanced Probiotic 1250 Mg Capsule) 2 cap PO DAILY [facility] Stop: 07/15/20 08:59 Last Admin: 06/23/20 09:06 Dose: 2 cap Documented by: Lactulose (Lactulose Syrup 10 Gm/15 Ml Btl 960 Ml) 15 gm PO DAILY MARYBETH Stop: 07/15/20 20:14 Last Admin: 06/23/20 09:07 Dose: Not Given Documented by: Lisinopril (Lisinopril 10 Mg Tab) 10 mg PO DAILY MARYBETH Stop: 07/15/20 08:59 Last Admin: 06/16/20 08:13 Dose: 10 mg Documented by: Lorazepam (Lorazepam 1 Mg Tab) 1 mg PO ONE PRN; Protocol PRN Reason: EtoH Withdrawal AWSS 6-10 Magnesium Hydroxide (Magnesium Hydroxide Susp 30 Ml Udc) 30 ml PO Q6H PRN PRN Reason: Constipation Stop: 07/17/20 12:03 Metoclopramide HCl (Metoclopramide Hcl Inj 5 Mg/Ml 2 Ml Vial) 10 mg IV Q6H PRN PRN Reason: Nausea And Vomiting Stop: 07/17/20 12:03 Metoprolol Succinate (Metoprolol Succ 25mg Ext Rel Tab) 25 mg PO DAILY [facility] Stop: 07/14/20 20:26 Last Admin: 06/16/20 08:13 Dose: 25 mg Documented by: Miscellaneous (Carbohydrates For Hypoglycemia ) 15 - 30 gm PO UD PRN PRN Reason: Hypoglycemia Treatment Stop: 07/15/20 20:44 Last Admin: 06/20/20 21:25 Dose: 15 gm Documented by: Multivitamins (Multivitamin Tab) 1 tab PO QAM [facility] Stop: 07/18/20 08:59 Last Admin: 06/23/20 09:06 Dose: 1 tab Documented by: Naloxone HCl (Naloxone Hcl 0.4 Mg/1 Ml Vial/Carp) 0.1 mg IV Q5M PRN PRN Reason: Oversedation/Resp Depression Stop: 07/17/20 12:03 Ondansetron HCl (Ondansetron Inj 2 Mg/Ml 2 Ml Vial) 4 mg IV Q6H PRN PRN Reason: Nausea Stop: 07/14/20 20:26 Oxycodone HCl (Oxycodone Hcl Ir 5 Mg Tab (Immediate Release)) 5 - 10 mg PO Q4H PRN PRN Reason: Pain or Pre PT Stop: 07/01/20 12:03 Last Admin: 06/23/20 09:36 Dose: 10 mg Documented by: Sennosides (Senna 8.6 Mg Tab) 17.2 mg PO HS [facility] Stop: 07/17/20 20:59 Last Admin: 06/22/20 20:35 Dose: 17.2 mg Documented by: Sodium Chloride (Sodium Chloride 1 Gm Tablet) 1 gm PO QAM [facility] Stop: 07/23/20 08:59 Last Admin: 06/23/20 10:25 Dose: 1 gm Documented by: Thiamine HCl (Thiamine Hcl 100 Mg Tab) 200 mg PO QAM [facility] Stop: 07/21/20 08:59 Last Admin: 06/23/20 09:06 Dose: 200 mg Documented by: Vitamin D (Cholecalciferol 1,000 Units 25 Mcg Tab) 2,000 units PO DAILY [facility] Stop: 07/15/20 08:59 Last Admin: 06/23/20 09:06 Dose: 2,000 units Documented by: PG Care Time/CCT Total # of Minutes Spent Total Time Spent with Patient: Total time spent is greater than 50% in coordination of care (as documented) at patient's floor/unit and/or counseling patient: Coding Level of Care Code 52325 Subseq Hosp Care Lvl 2 Diagnoses Sepsis A41.9 Gangrene of left foot I96 Osteomyelitis M86.9 Cellulitis of great toe of left foot L03.032 Weakness of both legs R29.898 Diabetes mellitus type 2, uncontrolled E11.65 Glycemic state: with hyperglycemia Chronic alcohol use Z72.89 Diabetic neuropathy E11.42 Diabetes mellitus type: type 2 Diabetes mellitus complication detail: diabetic polyneuropathy Pulmonary nodules/lesions, multiple R91.8 Hypomagnesemia E83.42 Hyponatremia E87.1 Acute hepatitis B17.9 Coagulopathy D68.9 Hypertension I10 Hypertension type: essential hypertension Acute metabolic encephalopathy G93.41 Anemia D64.9 Hyperkalemia E87.5 DVT prophylaxis Z29.9 (1) Diabetes mellitus type 2, uncontrolled Glycemic state: with hyperglycemia Qualified Code(s): E11.65 - Type 2 diabetes mellitus with hyperglycemia (2) Diabetic neuropathy Diabetes mellitus type: type 2 Diabetes mellitus complication detail: diabetic polyneuropathy Qualified Code(s): E11.42 - Type 2 diabetes mellitus with diabetic polyneuropathy (3) Hypertension Hypertension type: essential hypertension Qualified Code(s): I10 - Essential (primary) hypertension
[2020-06-23] MEDS: GABAPENTIN 300 MG CAP PO SCH ×2 (13:45→20:37)
[2020-06-23] MEDS: SENNA 8.6 MG TAB PO SCH (20:37)
[2020-06-23] MEDS: SODIUM CHLORIDE 1 GM TABLET PO SCH (20:37)
[2020-06-23] MEDS: ERTAPENEM SODIUM 1,000 MG in SODIUM CHLORIDE 0.9% 50 ML IV SCH (20:41)
[2020-06-24] MEDS ORDERED: INSULIN ASPART 100 UNITS/ML 3 ML PEN SC SCH
[2020-06-24] MEDS: HEPARIN SOD 5,000 UNIT/0.5 ML VIAL SQ SCH ×3 (05:17→20:10)
[2020-06-24 06:35] LABS: Hematocrit (blood only) 27.7 % (37-47); Mean Corpuscular Hgb Conc 32.5 g/dL (32-36); Mean Corpuscular Volume 101.5 fL (80-100); Platelet Count 557 K/uL (130-400); RDW Coefficient of Variation 17.6 % (11.5-14.5); RDW Standard Deviation 64.9 fL (36.4-46.3); Red Blood Count 2.73 M/uL (4.2-5.4); White Blood Count 10.96 K/uL (4.8-10.8)
[2020-06-24 06:46] LABS: INR 1.2 (0.9-1.1)
[2020-06-24 07:05] LABS: BUN Creatinine Ratio 17.3 (10-20); Calcium 8.3 mg/dl (8.5-10.1); Creatinine Clr Calc Pharmacy 106.2 ml/min; Est GFR (African American) 116.3; Est GFR (Non-African American) 100.3; Potassium 4.7 mmol/L (3.5-5.1)
[2020-06-24 07:08] LABS: Albumin Globulin Ratio 0.5 (0.9-2); Bilirubin,Total 0.7 mg/dl (0.2-1); Globulin 4.2 gm/dl (2.5-4.0); Total Protein 6.2 gm/dl (6.4-8.2)
[2020-06-24] MEDS: LACTULOSE SYRUP 10 GM/15 ML BTL 960 ML PO SCH (07:30)
[2020-06-24] MEDS: FOLIC ACID 1 MG TAB PO SCH (07:31)
[2020-06-24] MEDS: DOCUSATE SODIUM 100 MG CAP PO SCH (07:31)
[2020-06-24] MEDS: FERROUS GLUCONATE 324 MG TAB PO SCH ×2 (07:32→17:09)
[2020-06-24] MEDS: MULTIVITAMIN TAB PO SCH (07:32)
[2020-06-24] MEDS: GABAPENTIN 300 MG CAP PO SCH ×3 (07:32→20:10)
[2020-06-24] MEDS: THIAMINE HCL 100 MG TAB PO SCH (07:33)
[2020-06-24] MEDS: SODIUM CHLORIDE 1 GM TABLET PO SCH ×2 (07:33→20:10)
[2020-06-24] MEDS: CHOLECALCIFEROL 1,000 UNITS 25 MCG TAB PO SCH (07:34)
[2020-06-24] MEDS: ADVANCED PROBIOTIC 1250 MG CAPSULE PO SCH (07:34)
[2020-06-24] MEDS: INSULIN ASPART 100 UNITS/ML 3 ML PEN SC SCH ×4 (08:56→20:11)
[2020-06-24] MEDS: INSULIN GLARGINE SOLOSTAR 100 UNITS/ML 3 ML PEN SC SCH ×2 (08:58→20:11)
--- NOTE | 2020-06-24 14:31 | Hospitalist Progress Note ---
Date of Service June 24, 2020 Assessment & Plan (1) Sepsis: 2nd to left foot cellulitis, gangrene, osteomyelitis, and septic arthritis of first MTP joint. Ortho consult with Dr Maldonado much appreciated - POD #7 s/p extensive surgery on L foot. See Dr Maldonado's op note. Echo without endocarditis. Blood cx's negative to date. Intra-op wound cx -- proteus with bacteroides. Appreciate [facility] ID consultation and recs. Changed to IV ertapenam 1gm daily x 6 weeks on 06/20/20. PICC line placed in right upper extremity 06/22 stable for discharge to facility once she is accepted, anticipate Monday 06/25 at the earliest, need to call [facility] (2) Gangrene of left foot: See above in sepsis. LLE arterial duplex study without focal occlusion of any specific vessel; diffuse atherosclerosis noted. POD #7 - Dr Maldonado - s/p incision and Drainage abscess left first metatarsal phalangeal joint, irrigation and debridement plantar medial neuropathic ulcer first metatarsal phalangeal joint 4 cm x 3 cm x 0.4 cm, irrigation and debridement medial neuropathic ulcer first interphalangeal joint 12 mm x 14 mm x 3 mm, irrigation and debridement necrotic ulcers left great toe 2 separate sites including skin, subcutaneous tissue, fascia and periosteum, left foot tenosynovectomy septic flexor hallucis longus tendon Intra-op culture with pansensitive proteus & bacteroides continue Ertapenem for 6 weeks total appreciate ortho consult/assistance (3) Osteomyelitis: MRI left foot -- 1. Small focus of osteomyelitis within the distal medial aspect of the proximal phalanx of the left first toe. Additional sites of marrow edema within the left first metatarsal head, base of the proximal phalanx of the distal phalanx consistent with osteitis. 2. Left first metatarsophalangeal joint effusion with synovial enhancement. No associated bony destruction adjacent to the joint. This suggests synovitis and sterility cannot be assessed by MRI. 3. Wound along the plantar medial aspect of the left first metatarsophalangeal joint. Soft tissue edema consistent with cellulitis. POD #7 s/p extensive surgery L foot by Dr Maldonado -- see above (4) Cellulitis of great toe of left foot: resolving after surgery POD #7 from extensive surgery also as above. Echo without obvious SBE. Blood cx's neg. Partial weight-bearing left foot only. (5) Weakness of both legs: suspect 2nd to sepsis neuro exam wnl since admission improved strength since admission cont PT/OT will need rehab, [facility] (6) Diabetes mellitus type 2, uncontrolled: remains on basal-bolus insulin had lows on 06/20 glycemic control very adequate past three days (7) Chronic alcohol use: no evidence of withdrawal at this time cont thiamine 200mg daily cont folate 1mg daily cont MVI (8) Diabetic neuropathy: Severe. started gabapentin 200mg TID. titrated up to 300mg TID on 06/23, continue this on discharge (9) Pulmonary nodules/lesions, multiple: Seen on CT chest earlier this fall. etiology?? COVID was negative (antigen test) this admission and on past admission O2 sats stable in RA repeat COVID PCR negative as well needs f/u CT chest in 2-3 months (10) Hypomagnesemia: repleted and resolved (11) Hyponatremia: etiology?? looks euvolemic during her stay cortisol wnl TSH minimally elevated but fT4 wnl uric acid VERY low - this typically goes with SIADH check serum osm -- 272 on 06/22 urine osm INAPPROPRIATELY high at 454 and urine sodium low at 20 place on sodium 1gm BID continue 1800cc fluid restriction Na is 132 this morning, adequately controlled continue the above regimen on discharge (12) Acute hepatitis: LFTs are chronically elevated, but much worse at onset of this admission. INR was also worse at 1.6. Suspect Acute alcoholic hepatitis. HepC Ab 05/15 was negative. LFTs have improved. INR has improved to 1.3 having diarrhea, stop Lactulose (13) Coagulopathy: 2nd to acute hepatitis (suspected). 1.6 INR at admission. s/p vitamin K with improved INR to 1.3. (14) Hypertension: Cont metoprolol xl. BETZAIDA on hold - bps acceptable w/o it (15) Acute metabolic encephalopathy: resolved was likely 2nd sepsis stop lactulose as she is having a lot of diarrhea (16) Anemia: s/p 1 unit prcs this admission fecal occult neg h/h acceptable since then (17) Hyperkalemia: iatrogenic 2nd to K supplement and K-phos supplement both stopped l K is 4.7 again today (18) DVT prophylaxis: heparin SC TID dispo planning case management working on this diligently, will call facilities tomorrow for rehab patient is stable for discharge Admission and Anticipated Discharge Date Admission Date: June 14, 2020 Subjective patient's main complaint is diarrhea, said she has gone 5 times reviewed medications, she is ordered Lactulose 15mg daily, Senokot, Colace, will stop all of them she is eating well, no dyspnea, no fever, pain in left foot well controlled Na is 132 and Cr is 0.59 Review of Systems Review of Systems: All systems reviewed & are unremarkable except as noted in Subjective Physical Exam Constitutional: well developed and + thin; no acute distress Neck: trachea midline, no thyromegaly Respiratory: normal respiratory effort, lungs clear to auscultation Cardiovascular: RRR, no murmur, no edema Gastrointestinal (Abdomen): normal bowel sounds, soft, nontender, no hepatosplenomegaly Musculoskeletal: no cyanosis or clubbing, extremities motor strength 5/5 Skin: + wound (left foot, wrapped) Neurologic: patellar DTR's 2+ bilat, sensation intact and PERRL, EOMI, accommodation nl, no face palsy, no dysarthria Psychiatric: A+Ox3, euthymic affect Lymphatic: no cervical or axillary lymphadenopathy Results & Data Results & Data ([facility]) Vital Signs (Past 12 Hours) Vital Signs Temp Pulse Pulse Resp BP Pulse Ox 06/24/20 11:45 37.2 C 68 16 146/71 H 96 06/24/20 07:19 36.6 C 71 18 164/71 H 97 06/24/20 05:04 77 Laboratory Results Laboratory Results - last 24 hr 06/23/20 06/23/20 06/24/20 17:02 21:03 00:45 WBC RBC Hgb Hct MCV MCH MCHC RDW Std Deviation RDW Coeff of Francis Plt Count MPV PT INR Sodium Potassium Chloride Carbon Dioxide Anion Gap BUN Creatinine Est Cr Clr Drug Dosing Est GFR ( Amer) Est GFR (Non-Af Amer) BUN/Creatinine Ratio Glucose POC Glucose 154 H 75 116 H Calcium Total Bilirubin AST ALT Alkaline Phosphatase Total Protein Albumin Globulin Albumin/Globulin Ratio 06/24/20 06/24/20 06/24/20 06:20 06:20 06:20 WBC 10.96 H RBC 2.73 L Hgb 9.0 L Hct 27.7 L MCV 101.5 H MCH 33.0 MCHC 32.5 RDW Std Deviation 64.9 H RDW Coeff of Francis 17.6 H Plt Count 557 H MPV 10.0 PT 13.0 H INR 1.2 H Sodium 132 L Potassium 4.7 Chloride 101 Carbon Dioxide 28 Anion Gap 3.0 BUN 10 Creatinine 0.59 L Est Cr Clr Drug Dosing 106.2 Est GFR ( Amer) 116.3 Est GFR (Non-Af Amer) 100.3 BUN/Creatinine Ratio 17.3 Glucose 108 H POC Glucose Calcium 8.3 L Total Bilirubin 0.7 AST 50 H ALT 24 Alkaline Phosphatase 119 H Total Protein 6.2 L Albumin 2.0 L Globulin 4.2 H Albumin/Globulin Ratio 0.5 L 06/24/20 06/24/20 07:52 11:32 WBC RBC Hgb Hct MCV MCH MCHC RDW Std Deviation RDW Coeff of Francis Plt Count MPV PT INR Sodium Potassium Chloride Carbon Dioxide Anion Gap BUN Creatinine Est Cr Clr Drug Dosing Est GFR ( Amer) Est GFR (Non-Af Amer) BUN/Creatinine Ratio Glucose POC Glucose 134 H 230 H Calcium Total Bilirubin AST ALT Alkaline Phosphatase Total Protein Albumin Globulin Albumin/Globulin Ratio Medications Administered Current Inpatient Medications Bisacodyl (Bisacodyl 10 Mg Supp) 10 mg [place] DAILY PRN PRN Reason: Constipation Stop: 07/17/20 12:03 Dextrose (Dextrose 50% 50 Ml Syringe) 25 - 50 ml IV UD PRN; Protocol PRN Reason: Hypoglycemia Protocol Stop: 07/15/20 20:44 Ferrous Gluconate (Ferrous Gluconate 324 Mg Tab) 324 mg PO BIDM MARYBETH Stop: 07/17/20 16:59 Last Admin: 06/24/20 07:32 Dose: 324 mg Documented by: Folic Acid (Folic Acid 1 Mg Tab) 1 mg PO QAM MARYBETH Stop: 07/21/20 09:14 Last Admin: 06/24/20 07:31 Dose: 1 mg Documented by: Gabapentin (Gabapentin 300 Mg Cap) 300 mg PO TID [facility] Stop: 07/23/20 13:59 Last Admin: 06/24/20 13:31 Dose: 300 mg Documented by: Glucagon (Glucagon For Inj 1 Mg Vial) 1 mg IM UD PRN; Protocol PRN Reason: Hypoglycemia Protocol Stop: 07/15/20 20:44 Glucose (Glucose 40% Gel 15 Gm Tube) 15 - 30 gm PO UD PRN; Protocol PRN Reason: Hypoglycemia Protocol Stop: 07/15/20 20:44 Glucose (Glucose 10 Tabs/Tube) 4 - 8 tabs PO UD PRN; Protocol PRN Reason: Hypoglycemia Protocol Stop: 07/15/20 20:44 Heparin Sodium (Beef Lung) (Heparin 10 Unit/Ml 5 Ml Flush) 5 ml FLUSH PRN PRN PRN Reason: Flush Stop: 07/22/20 16:47 Last Admin: 06/24/20 06:20 Dose: 5 ml Documented by: Heparin Sodium (Porcine) (Heparin Sod 5,000 Unit/0.5 Ml Vial) 5,000 units SQ Q8 MARYBETH Stop: 07/20/20 13:59 Last Admin: 06/24/20 13:31 Dose: 5,000 units Documented by: Lorazepam (Ativan) 1 mg in 2 mls @ 2 mls/min IV ONE PRN; Protocol PRN Reason: EtoH Withdrawal AWSS 6-10 Stop: 07/14/20 20:26 Last Admin: 06/14/20 21:30 Dose: 2 mls/min Documented by: Ertapenem 1,000 mg/ Sodium (Chloride) 60 mls @ 100 mls/hr IV Q24H MARYBETH Stop: 08/01/20 20:59 Last Infusion: 06/23/20 21:29 Dose: Infused Documented by: Insulin Aspart (Insulin Aspart 100 Units/Ml 3 Ml Pen) 0 units SC ACHS MARYBETH Stop: 07/14/20 20:59 Last Admin: 06/24/20 13:30 Dose: 11 units Documented by: Insulin Glargine (Insulin Glargine Solostar 100 Units/Ml 3 Ml Pen) 20 units SC HS [facility] Stop: 07/14/20 20:59 Last Admin: 06/23/20 21:30 Dose: Not Given Documented by: Insulin Glargine (Insulin Glargine Solostar 100 Units/Ml 3 Ml Pen) 10 units SC QAM [facility] Stop: 07/15/20 09:44 Last Admin: 06/24/20 08:58 Dose: 10 units Documented by: Ketorolac Tromethamine (Ketorolac Tromethamine 15 Mg/Ml Vial) 15 mg IV Q6H PRN PRN Reason: Pain Stop: 06/26/20 20:23 Lactobacillus Acidoph/Casei/Rhamnos (Advanced Probiotic 1250 Mg Capsule) 2 cap PO DAILY [facility] Stop: 07/15/20 08:59 Last Admin: 06/24/20 07:34 Dose: 2 cap Documented by: Lisinopril (Lisinopril 10 Mg Tab) 10 mg PO DAILY [facility] Stop: 07/15/20 08:59 Last Admin: 06/16/20 08:13 Dose: 10 mg Documented by: Lorazepam (Lorazepam 1 Mg Tab) 1 mg PO ONE PRN; Protocol PRN Reason: EtoH Withdrawal AWSS 6-10 Magnesium Hydroxide (Magnesium Hydroxide Susp 30 Ml Udc) 30 ml PO Q6H PRN PRN Reason: Constipation Stop: 07/17/20 12:03 Metoclopramide HCl (Metoclopramide Hcl Inj 5 Mg/Ml 2 Ml Vial) 10 mg IV Q6H PRN PRN Reason: Nausea And Vomiting Stop: 07/17/20 12:03 Metoprolol Succinate (Metoprolol Succ 25mg Ext Rel Tab) 25 mg PO DAILY [facility] Stop: 07/14/20 20:26 Last Admin: 06/16/20 08:13 Dose: 25 mg Documented by: Miscellaneous (Carbohydrates For Hypoglycemia ) 15 - 30 gm PO UD PRN PRN Reason: Hypoglycemia Treatment Stop: 07/15/20 20:44 Last Admin: 06/20/20 21:25 Dose: 15 gm Documented by: Multivitamins (Multivitamin Tab) 1 tab PO QAM [facility] Stop: 07/18/20 08:59 Last Admin: 06/24/20 07:32 Dose: 1 tab Documented by: Naloxone HCl (Naloxone Hcl 0.4 Mg/1 Ml Vial/Carp) 0.1 mg IV Q5M PRN PRN Reason: Oversedation/Resp Depression Stop: 07/17/20 12:03 Ondansetron HCl (Ondansetron Inj 2 Mg/Ml 2 Ml Vial) 4 mg IV Q6H PRN PRN Reason: Nausea Stop: 07/14/20 20:26 Oxycodone HCl (Oxycodone Hcl Ir 5 Mg Tab (Immediate Release)) 5 - 10 mg PO Q4H PRN PRN Reason: Pain or Pre PT Stop: 07/01/20 12:03 Last Admin: 06/23/20 20:39 Dose: 10 mg Documented by: Sodium Chloride (Sodium Chloride 1 Gm Tablet) 1 gm PO BID [facility] Stop: 07/23/20 20:59 Last Admin: 06/24/20 07:33 Dose: 1 gm Documented by: Thiamine HCl (Thiamine Hcl 100 Mg Tab) 200 mg PO QAM MARYBETH Stop: 07/21/20 08:59 Last Admin: 06/24/20 07:33 Dose: 200 mg Documented by: Vitamin D (Cholecalciferol 1,000 Units 25 Mcg Tab) 2,000 units PO DAILY MARYBETH Stop: 07/15/20 08:59 Last Admin: 06/24/20 07:34 Dose: 2,000 units Documented by: PG Care Time/CCT Total # of Minutes Spent Total Time Spent with Patient: Total time spent is greater than 50% in coordination of care (as documented) at patient's floor/unit and/or counseling patient: Coding Level of Care Code 09789 Subseq Hosp Care Lvl 2 Diagnoses Sepsis A41.9 Gangrene of left foot I96 Osteomyelitis M86.9 Cellulitis of great toe of left foot L03.032 Weakness of both legs R29.898 Diabetes mellitus type 2, uncontrolled E11.65 Glycemic state: with hyperglycemia Chronic alcohol use Z72.89 Diabetic neuropathy E11.42 Diabetes mellitus complication detail: diabetic polyneuropathy Diabetes mellitus type: type 2 Pulmonary nodules/lesions, multiple R91.8 Hypomagnesemia E83.42 Hyponatremia E87.1 Acute hepatitis B17.9 Coagulopathy D68.9 Hypertension I10 Hypertension type: essential hypertension Acute metabolic encephalopathy G93.41 Anemia D64.9 Hyperkalemia E87.5 DVT prophylaxis Z29.9 (1) Diabetic neuropathy Diabetes mellitus complication detail: diabetic polyneuropathy Diabetes mellitus type: type 2 Qualified Code(s): E11.42 - Type 2 diabetes mellitus with diabetic polyneuropathy (2) Diabetes mellitus type 2, uncontrolled Glycemic state: with hyperglycemia Qualified Code(s): E11.65 - Type 2 diabetes mellitus with hyperglycemia (3) Hypertension Hypertension type: essential hypertension Qualified Code(s): I10 - Essential (primary) hypertension
[2020-06-24] MEDS: ERTAPENEM SODIUM 1,000 MG in SODIUM CHLORIDE 0.9% 50 ML IV SCH (20:09)
[2020-06-25] MEDS: HEPARIN SOD 5,000 UNIT/0.5 ML VIAL SQ SCH ×3 (05:45→20:50)
--- NOTE | 2020-06-25 08:20 | Hospitalist Progress Note ---
Date of Service June 25, 2020 Assessment & Plan (1) Sepsis: (2) Gangrene of left foot: See above in sepsis. LLE arterial duplex study without focal occlusion of any specific vessel; diffuse atherosclerosis noted. - Dr Maldonado - 06/17/20 s/p incision and Drainage abscess left first metatarsal phalangeal joint, irrigation and debridement plantar medial neuropathic ulcer first metatarsal phalangeal joint 4 cm x 3 cm x 0.4 cm, irrigation and debridement medial neuropathic ulcer first interphalangeal joint 12 mm x 14 mm x 3 mm, irrigation and debridement necrotic ulcers left great toe 2 separate sites including skin, subcutaneous tissue, fascia and periosteum, left foot tenosynovectomy septic flexor hallucis longus tendon Intra-op culture with pansensitive proteus & bacteroides continue Ertapenem for 6 weeks total LD 08/01/2020 appreciate ortho consult/assistance (3) Osteomyelitis: MRI left foot -- 1. Small focus of osteomyelitis within the distal medial aspect of the proximal phalanx of the left first toe. Additional sites of marrow edema within the left first metatarsal head, base of the proximal phalanx of the distal phalanx consistent with osteitis. 2. Left first metatarsophalangeal joint effusion with synovial enhancement. No associated bony destruction adjacent to the joint. This suggests synovitis and sterility cannot be assessed by MRI. 3. Wound along the plantar medial aspect of the left first metatarsophalangeal joint. Soft tissue edema consistent with cellulitis. s/p extensive surgery L foot by Dr Maldonado 06/17/20 (4) Cellulitis of great toe of left foot: resolving after surgery POD #7 from extensive surgery also as above. Echo without obvious SBE. Blood cx's neg. Partial weight-bearing left foot only. may need wound care eval and some debridement, I have a message out to Dr Maldonado regarding his preference (5) Weakness of both legs: suspect 2nd to sepsis neuro exam wnl since admission improved strength since admission cont PT/OT will need rehab, [facility], [facility] is not accepting pts at this time (6) Diabetes mellitus type 2, uncontrolled: remains on basal-bolus insulin had lows on 06/20 glycemic control very adequate (7) Chronic alcohol use: no evidence of withdrawal at this time cont thiamine 200mg daily cont folate 1mg daily cont MVI (8) Diabetic neuropathy: Severe. started gabapentin 200mg TID. titrated up to 300mg TID on 06/23, continue this on discharge (9) Pulmonary nodules/lesions, multiple: Seen on CT chest earlier this fall. COVID was negative (antigen test) this admission and on past admission O2 sats stable in RA repeat COVID PCR negative as well needs f/u CT chest in 2-3 months (10) Hypomagnesemia: repleted and resolved (11) Hyponatremia: concern for siadh looks euvolemic during her stay cortisol wnl TSH minimally elevated but fT4 wnl place on sodium 1gm BID continue 1800cc fluid restriction continue the above regimen on discharge (12) Acute hepatitis: LFTs are chronically elevated, but much worse at onset of this admission. INR was also worse at 1.6. Suspect Acute alcoholic hepatitis. HepC Ab 05/15 was negative. LFTs have improved. INR has improved to 1.3 having diarrhea, stop Lactulose (13) Coagulopathy: 2nd to acute hepatitis (suspected). 1.6 INR at admission. s/p vitamin K with improved INR to 1.3. (14) Hypertension: Cont metoprolol xl. BETZAIDA on hold - bps acceptable w/o it (15) Acute metabolic encephalopathy: resolved was likely 2nd sepsis stop lactulose as she is having a lot of diarrhea (16) Anemia: s/p 1 unit prcs this admission fecal occult neg h/h acceptable since then (17) Hyperkalemia: iatrogenic 2nd to K supplement and K-phos supplement both stopped (18) DVT prophylaxis: heparin SC TID local [facility] not accepting admissions at present Admission and Anticipated Discharge Date Admission Date: June 14, 2020 Subjective Diarrhea has reduced with stopping cathartic, she has no complaints but has difficulty with walking. she is awaiting placement for rehab Review of Systems Review of Systems: Mild distress and fatigue no headache, blurry or double vision no speech or swallowing issues no chest pain, pressure or palpitations no shortness of breath, cough or wheezes no abdominal pain, nausea or vomiting, diarrhea or constipation no dysuria, hematuria or frequency no focal joint pain or swelling no back pain, CVA tenderness or radicular pain her foot has large wounds with eschar and some suture present no focal signs of weakness or numbness or altered sensation no complaints of anxiety or depression. Physical Exam Physical Exam: The patient appeared chronically ill Vital signs as documented. Head exam is normocephalic atraumatic no scleral icterus Neck is without JVD, thyromegaly, or carotid bruits. Lungs are clear to auscultation, no focal loss of breath sounds Cardiac exam, Rhythm is regular.. No murmurs, rubs or gallops. Abdominal exam reveals normal bowel sounds, soft non tender, no masses Extremities are nonedematous and both pedal pulses are present Neurologic exam is alert and oriented, no focal loss of strength or sensation Skin is with two large hard black eschars on left foot at the medial MTP area Psychologically is without concerns for anxiety or depression. Results & Data Results & Data ([facility]) Vital Signs (Past 12 Hours) Vital Signs Temp Pulse Pulse Resp BP BP Pulse Ox 06/25/20 07:51 97.7 F 85 18 156/86 H 98 06/25/20 07:17 68 06/25/20 04:05 98.4 F 75 18 172/82 H 94 06/24/20 23:58 99.0 F 75 18 153/73 H 92 PG Care Time/CCT Total # of Minutes Spent Total Time Spent with Patient: Total time spent is greater than 50% in coordination of care (as documented) at patient's floor/unit and/or counseling patient: Coding Level of Care Code 69410 Subseq Hosp Care Lvl 3 Diagnoses Sepsis A41.9 Gangrene of left foot I96 Osteomyelitis M86.9 Cellulitis of great toe of left foot L03.032 Weakness of both legs R29.898 Diabetes mellitus type 2, uncontrolled E11.65 Glycemic state: with hyperglycemia Chronic alcohol use Z72.89 Diabetic neuropathy E11.42 Diabetes mellitus complication detail: diabetic polyneuropathy Diabetes mellitus type: type 2 Pulmonary nodules/lesions, multiple R91.8 Hypomagnesemia E83.42 Hyponatremia E87.1 Acute hepatitis B17.9 Coagulopathy D68.9 Hypertension I10 Hypertension type: essential hypertension Acute metabolic encephalopathy G93.41 Anemia D64.9 Hyperkalemia E87.5 DVT prophylaxis Z29.9 (1) Diabetic neuropathy Diabetes mellitus complication detail: diabetic polyneuropathy Diabetes mellitus type: type 2 Qualified Code(s): E11.42 - Type 2 diabetes mellitus with diabetic polyneuropathy (2) Diabetes mellitus type 2, uncontrolled Glycemic state: with hyperglycemia Qualified Code(s): E11.65 - Type 2 diabetes mellitus with hyperglycemia (3) Hypertension Hypertension type: essential hypertension Qualified Code(s): I10 - Essential (primary) hypertension
[2020-06-25] MEDS: GABAPENTIN 300 MG CAP PO SCH ×3 (08:25→20:48)
[2020-06-25] MEDS: SODIUM CHLORIDE 1 GM TABLET PO SCH ×2 (08:25→20:49)
[2020-06-25] MEDS: FOLIC ACID 1 MG TAB PO SCH (08:25)
[2020-06-25] MEDS: MULTIVITAMIN TAB PO SCH (08:25)
[2020-06-25] MEDS: FERROUS GLUCONATE 324 MG TAB PO SCH ×2 (08:25→17:35)
[2020-06-25] MEDS: ADVANCED PROBIOTIC 1250 MG CAPSULE PO SCH (08:25)
[2020-06-25] MEDS: CHOLECALCIFEROL 1,000 UNITS 25 MCG TAB PO SCH (08:26)
[2020-06-25] MEDS: THIAMINE HCL 100 MG TAB PO SCH (08:26)
[2020-06-25] MEDS: INSULIN ASPART 100 UNITS/ML 3 ML PEN SC SCH ×4 (08:29→20:48)
[2020-06-25] MEDS: INSULIN GLARGINE SOLOSTAR 100 UNITS/ML 3 ML PEN SC SCH ×2 (08:31→20:47)
[2020-06-25] MEDS: ERTAPENEM SODIUM 1,000 MG in SODIUM CHLORIDE 0.9% 50 ML IV SCH (20:47)
[2020-06-26] MEDS: HEPARIN SOD 5,000 UNIT/0.5 ML VIAL SQ SCH ×3 (05:46→21:02)
[2020-06-26] MEDS: FERROUS GLUCONATE 324 MG TAB PO SCH ×2 (09:09→17:29)
[2020-06-26] MEDS: FOLIC ACID 1 MG TAB PO SCH (09:09)
[2020-06-26] MEDS: CHOLECALCIFEROL 1,000 UNITS 25 MCG TAB PO SCH (09:10)
[2020-06-26] MEDS: GABAPENTIN 300 MG CAP PO SCH ×3 (09:10→21:00)
[2020-06-26] MEDS: MULTIVITAMIN TAB PO SCH (09:10)
[2020-06-26] MEDS: ADVANCED PROBIOTIC 1250 MG CAPSULE PO SCH (09:10)
[2020-06-26] MEDS: SODIUM CHLORIDE 1 GM TABLET PO SCH ×2 (09:10→21:02)
[2020-06-26] MEDS: THIAMINE HCL 100 MG TAB PO SCH (09:10)
[2020-06-26] MEDS: INSULIN GLARGINE SOLOSTAR 100 UNITS/ML 3 ML PEN SC SCH ×2 (09:11→20:59)
[2020-06-26] MEDS: INSULIN ASPART 100 UNITS/ML 3 ML PEN SC SCH ×4 (09:13→21:00)
--- NOTE | 2020-06-26 18:59 | Hospitalist Progress Note ---
Date of Service June 26, 2020 Assessment & Plan (1) Sepsis: 2nd to left foot cellulitis, gangrene, osteomyelitis, and septic arthritis of first MTP joint. Ortho consult with Dr Maldonado much appreciated - POD #7 s/p extensive surgery on L foot. See Dr Maldonado's op note. Echo without endocarditis. Blood cx's negative to date. Intra-op wound cx -- proteus with bacteroides. Appreciate [facility] ID consultation and recs. Changed to IV ertapenam 1gm daily x 6 weeks on 06/20/20. PICC line placed in right upper extremity 06/22 stable for discharge to facility once she is accepted, anticipate Monday 06/25 at the earliest, need to call [facility] (2) Gangrene of left foot: See above in sepsis. LLE arterial duplex study without focal occlusion of any specific vessel; diffuse atherosclerosis noted. - Dr Maldonado - 06/17/20 s/p incision and Drainage abscess left first metatarsal phalangeal joint, irrigation and debridement plantar medial neuropathic ulcer first metatarsal phalangeal joint 4 cm x 3 cm x 0.4 cm, irrigation and debridement medial neuropathic ulcer first interphalangeal joint 12 mm x 14 mm x 3 mm, irrigation and debridement necrotic ulcers left great toe 2 separate sites including skin, subcutaneous tissue, fascia and periosteum, left foot tenosynovectomy septic flexor hallucis longus tendon Intra-op culture with pansensitive proteus & bacteroides continue Ertapenem for 6 weeks total LD 08/01/2020 appreciate ortho consult/assistance (3) Osteomyelitis: MRI left foot -- 1. Small focus of osteomyelitis within the distal medial aspect of the proximal phalanx of the left first toe. Additional sites of marrow edema within the left first metatarsal head, base of the proximal phalanx of the distal phalanx consistent with osteitis. 2. Left first metatarsophalangeal joint effusion with synovial enhancement. No associated bony destruction adjacent to the joint. This suggests synovitis and sterility cannot be assessed by MRI. 3. Wound along the plantar medial aspect of the left first metatarsophalangeal joint. Soft tissue edema consistent with cellulitis. s/p extensive surgery L foot by Dr Maldonado 06/17/20 (4) Cellulitis of great toe of left foot: resolving after surgery POD #7 from extensive surgery also as above. Echo without obvious SBE. Blood cx's neg. Partial weight-bearing left foot only. may need wound care eval and some debridement, I have a message out to Dr Maldonado regarding his preference (5) Weakness of both legs: suspect 2nd to sepsis neuro exam wnl since admission improved strength since admission cont PT/OT will need rehab, [facility], [facility] is not accepting pts at this time (6) Diabetes mellitus type 2, uncontrolled: remains on basal-bolus insulin had lows on 06/20 glycemic control very adequate (7) Chronic alcohol use: no evidence of withdrawal at this time cont thiamine 200mg daily cont folate 1mg daily cont MVI (8) Diabetic neuropathy: Severe. started gabapentin 200mg TID. titrated up to 300mg TID on 06/23, continue this on discharge (9) Pulmonary nodules/lesions, multiple: Seen on CT chest earlier this fall. COVID was negative (antigen test) this admission and on past admission O2 sats stable in RA repeat COVID PCR negative as well needs f/u CT chest in 2-3 months (10) Hypomagnesemia: repleted and resolved (11) Hyponatremia: concern for siadh looks euvolemic during her stay cortisol wnl TSH minimally elevated but fT4 wnl place on sodium 1gm BID continue 1800cc fluid restriction continue the above regimen on discharge (12) Acute hepatitis: LFTs are chronically elevated, but much worse at onset of this admission. INR was also worse at 1.6. Suspect Acute alcoholic hepatitis. HepC Ab 05/15 was negative. LFTs have improved. INR has improved to 1.3 having diarrhea, stop Lactulose (13) Coagulopathy: 2nd to acute hepatitis (suspected). 1.6 INR at admission. s/p vitamin K with improved INR to 1.3. (14) Hypertension: Cont metoprolol xl. BETZAIDA on hold - bps acceptable w/o it (15) Acute metabolic encephalopathy: resolved was likely 2nd sepsis stop lactulose as she is having a lot of diarrhea (16) Anemia: s/p 1 unit prcs this admission fecal occult neg h/h acceptable since then (17) Hyperkalemia: iatrogenic 2nd to K supplement and K-phos supplement both stopped (18) DVT prophylaxis: heparin SC TID local snf not accepting admissions at present Admission and Anticipated Discharge Date Admission Date: June 14, 2020 Subjective she has no complaints but has difficulty with walking. she is awaiting placement for rehab Review of Systems Review of Systems: Mild distress and fatigue no headache, blurry or double vision no speech or swallowing issues no chest pain, pressure or palpitations no shortness of breath, cough or wheezes no abdominal pain, nausea or vomiting, diarrhea or constipation no dysuria, hematuria or frequency no focal joint pain or swelling no back pain, CVA tenderness or radicular pain her foot has large wounds with eschar and some suture present no focal signs of weakness or numbness or altered sensation no complaints of anxiety or depression. Physical Exam Physical Exam: The patient appeared chronically ill Vital signs as documented. Head exam is normocephalic atraumatic no scleral icterus Neck is without JVD, thyromegaly, or carotid bruits. Lungs are clear to auscultation, no focal loss of breath sounds Cardiac exam, Rhythm is regular.. No murmurs, rubs or gallops. Abdominal exam reveals normal bowel sounds, soft non tender, no masses Extremities are nonedematous and both pedal pulses are present Neurologic exam is alert and oriented, no focal loss of strength or sensation Skin is with two large hard black eschars on left foot at the medial MTP area Psychologically is without concerns for anxiety or depression. Results & Data Results & Data ([facility]) Vital Signs (Past 12 Hours) Vital Signs Temp Pulse Pulse Resp BP Pulse Ox 06/26/20 16:20 73 06/26/20 15:45 98.6 F 82 18 185/80 H 92 06/26/20 11:34 97.5 F L 75 18 169/74 H 95 06/26/20 07:14 97.5 F L 74 18 179/81 H 93 06/26/20 07:13 69 PG Care Time/CCT Total # of Minutes Spent Total Time Spent with Patient: Total time spent is greater than 50% in coordination of care (as documented) at patient's floor/unit and/or counseling patient: Coding Level of Care Code 77891 Subseq Hosp Care Lvl 2 Diagnoses Sepsis A41.9 Gangrene of left foot I96 Osteomyelitis M86.9 Cellulitis of great toe of left foot L03.032 Weakness of both legs R29.898 Diabetes mellitus type 2, uncontrolled E11.65 Glycemic state: with hyperglycemia Chronic alcohol use Z72.89 Diabetic neuropathy E11.42 Diabetes mellitus type: type 2 Diabetes mellitus complication detail: diabetic polyneuropathy Pulmonary nodules/lesions, multiple R91.8 Hypomagnesemia E83.42 Hyponatremia E87.1 Acute hepatitis B17.9 Coagulopathy D68.9 Hypertension I10 Hypertension type: essential hypertension Acute metabolic encephalopathy G93.41 Anemia D64.9 Hyperkalemia E87.5 DVT prophylaxis Z29.9 (1) Diabetes mellitus type 2, uncontrolled Glycemic state: with hyperglycemia Qualified Code(s): E11.65 - Type 2 diabetes mellitus with hyperglycemia (2) Diabetic neuropathy Diabetes mellitus type: type 2 Diabetes mellitus complication detail: diabetic polyneuropathy Qualified Code(s): E11.42 - Type 2 diabetes mellitus with diabetic polyneuropathy (3) Hypertension Hypertension type: essential hypertension Qualified Code(s): I10 - Essential (primary) hypertension
[2020-06-26] MEDS: ERTAPENEM SODIUM 1,000 MG in SODIUM CHLORIDE 0.9% 50 ML IV SCH (20:59)
[2020-06-27] MEDS: HEPARIN SOD 5,000 UNIT/0.5 ML VIAL SQ SCH ×3 (06:24→21:01)
[2020-06-27] MEDS: MULTIVITAMIN TAB PO SCH (08:35)
[2020-06-27] MEDS: SODIUM CHLORIDE 1 GM TABLET PO SCH ×2 (08:35→20:53)
[2020-06-27] MEDS: CHOLECALCIFEROL 1,000 UNITS 25 MCG TAB PO SCH (08:35)
[2020-06-27] MEDS: GABAPENTIN 300 MG CAP PO SCH ×3 (08:35→20:53)
[2020-06-27] MEDS: THIAMINE HCL 100 MG TAB PO SCH (08:36)
[2020-06-27] MEDS: ADVANCED PROBIOTIC 1250 MG CAPSULE PO SCH (08:36)
[2020-06-27] MEDS: FERROUS GLUCONATE 324 MG TAB PO SCH ×2 (08:36→18:02)
[2020-06-27] MEDS: FOLIC ACID 1 MG TAB PO SCH (08:37)
[2020-06-27] MEDS: INSULIN ASPART 100 UNITS/ML 3 ML PEN SC SCH ×4 (08:40→20:51)
[2020-06-27] MEDS: INSULIN GLARGINE SOLOSTAR 100 UNITS/ML 3 ML PEN SC SCH ×2 (08:42→20:50)
[2020-06-27] MEDS: oxyCODONE HCL IR 5 MG TAB (IMMEDIATE RELEASE) PO PRN (18:05)
--- NOTE | 2020-06-27 18:28 | Hospitalist Progress Note ---
Date of Service June 27, 2020 Assessment & Plan (1) Sepsis: 2nd to left foot cellulitis, gangrene, osteomyelitis, and septic arthritis of first MTP joint. Ortho consult with Dr Maldonado much appreciated -on 06/17 s/p extensive surgery on L foot. Echo without endocarditis. Blood cx's negative to date. Intra-op wound cx -- proteus with bacteroides. Appreciate [facility] ID consultation and recs. Changed to IV ertapenam 1gm daily x 6 weeks on 06/20/20. PICC line placed in right upper extremity 06/22 stable for discharge to facility once she is accepted, anticipate Monday 06/25 at the earliest, need to call [facility] Past surgical team to comment on the patient's SR (2) Gangrene of left foot: See above in sepsis. LLE arterial duplex study without focal occlusion of any specific vessel; diffuse atherosclerosis noted. - Dr Maldonado - 06/17/20 s/p incision and Drainage abscess left first metatarsal phalangeal joint, irrigation and debridement plantar medial neuropathic ulcer first metatarsal phalangeal joint 4 cm x 3 cm x 0.4 cm, irrigation and debridement medial neuropathic ulcer first interphalangeal joint 12 mm x 14 mm x 3 mm, irrigation and debridement necrotic ulcers left great toe 2 separate sites including skin, subcutaneous tissue, fascia and periosteum, left foot tenosynovectomy septic flexor hallucis longus tendon Intra-op culture with pansensitive proteus & bacteroides continue Ertapenem for 6 weeks total LD 08/01/2020 appreciate ortho consult/assistance (3) Osteomyelitis: MRI left foot -- 1. Small focus of osteomyelitis within the distal medial aspect of the proximal phalanx of the left first toe. Additional sites of marrow edema within the left first metatarsal head, base of the proximal phalanx of the distal phalanx consistent with osteitis. 2. Left first metatarsophalangeal joint effusion with synovial enhancement. No associated bony destruction adjacent to the joint. This suggests synovitis and sterility cannot be assessed by MRI. 3. Wound along the plantar medial aspect of the left first metatarsophalangeal joint. Soft tissue edema consistent with cellulitis. s/p extensive surgery L foot by Dr Maldonado 06/17/20 (4) Cellulitis of great toe of left foot: resolving after surgery POD #7 from extensive surgery also as above. Echo without obvious SBE. Blood cx's neg. Partial weight-bearing left foot only. may need wound care eval and some debridement, I have a message out to Dr Maldonado regarding his preference (5) Weakness of both legs: suspect 2nd to sepsis neuro exam wnl since admission improved strength since admission cont PT/OT will need rehab, [facility], [facility] is not accepting pts at this time (6) Diabetes mellitus type 2, uncontrolled: remains on basal-bolus insulin had lows on 06/20 glycemic control very adequate (7) Chronic alcohol use: no evidence of withdrawal at this time cont thiamine 200mg daily cont folate 1mg daily cont MVI (8) Diabetic neuropathy: Severe. started gabapentin 200mg TID. titrated up to 300mg TID on 06/23, continue this on discharge (9) Pulmonary nodules/lesions, multiple: Seen on CT chest earlier this fall. COVID was negative (antigen test) this admission and on past admission O2 sats stable in RA repeat COVID PCR negative as well needs f/u CT chest in 2-3 months (10) Hypomagnesemia: repleted and resolved (11) Hyponatremia: concern for siadh looks euvolemic during her stay cortisol wnl TSH minimally elevated but fT4 wnl place on sodium 1gm BID continue 1800cc fluid restriction continue the above regimen on discharge (12) Acute hepatitis: LFTs are chronically elevated, but much worse at onset of this admission. INR was also worse at 1.6. Suspect Acute alcoholic hepatitis. HepC Ab 05/15 was negative. LFTs have improved. INR has improved to 1.3 having diarrhea, stop Lactulose (13) Coagulopathy: 2nd to acute hepatitis (suspected). 1.6 INR at admission. s/p vitamin K with improved INR to 1.3. (14) Hypertension: Cont metoprolol xl. BETZAIDA on hold - bps acceptable w/o it (15) Acute metabolic encephalopathy: resolved was likely 2nd sepsis stop lactulose as she is having a lot of diarrhea (16) Anemia: s/p 1 unit prcs this admission fecal occult neg h/h acceptable since then (17) Hyperkalemia: iatrogenic 2nd to K supplement and K-phos supplement both stopped (18) DVT prophylaxis: heparin SC TID local [facility] not accepting admissions at present Admission and Anticipated Discharge Date Admission Date: June 14, 2020 Subjective she has no complaints but has difficulty with walking. she is awaiting placement for rehab patient is very little changes in her hospital stay were purely waiting for rehab. We are having her wound reevaluated by her surgical team due to persistent eschar impeding wound healing. Patient is also being f ollowed by wound care while as an inpatient Review of Systems Review of Systems: Mild distress and fatigue no headache, blurry or double vision no speech or swallowing issues no chest pain, pressure or palpitations no shortness of breath, cough or wheezes no abdominal pain, nausea or vomiting, diarrhea or constipation no dysuria, hematuria or frequency no focal joint pain or swelling no back pain, CVA tenderness or radicular pain her foot has large wounds with eschar and some suture present no focal signs of weakness or numbness or altered sensation no complaints of anxiety or depression. Physical Exam Physical Exam: The patient appeared chronically ill Vital signs as documented. Head exam is normocephalic atraumatic no scleral icterus Neck is without JVD, thyromegaly, or carotid bruits. Lungs are clear to auscultation, no focal loss of breath sounds Cardiac exam, Rhythm is regular.. No murmurs, rubs or gallops. Abdominal exam reveals normal bowel sounds, soft non tender, no masses Extremities are nonedematous and both pedal pulses are present Neurologic exam is alert and oriented, no focal loss of strength or sensation Skin is with two large hard black eschars on left foot at the medial MTP area Psychologically is without concerns for anxiety or depression. Results & Data Results & Data ([facility]) Vital Signs (Past 12 Hours) Vital Signs Temp Pulse Pulse Resp BP BP Pulse Ox 06/27/20 16:18 98.2 F 88 20 176/83 H 96 06/27/20 16:00 92 H 06/27/20 11:38 97.5 F L 74 18 167/71 H 97 06/27/20 07:49 85 06/27/20 07:30 98.1 F 80 18 182/79 H 94 PG Care Time/CCT Total # of Minutes Spent Total Time Spent with Patient: Total time spent is greater than 50% in coordination of care (as documented) at patient's floor/unit and/or counseling patient: Coding Level of Care Code 96696 Subseq Hosp Care Lvl 2 Diagnoses Sepsis A41.9 Gangrene of left foot I96 Osteomyelitis M86.9 Cellulitis of great toe of left foot L03.032 Weakness of both legs R29.898 Diabetes mellitus type 2, uncontrolled E11.65 Glycemic state: with hyperglycemia Chronic alcohol use Z72.89 Diabetic neuropathy E11.42 Diabetes mellitus type: type 2 Diabetes mellitus complication detail: diabetic polyneuropathy Pulmonary nodules/lesions, multiple R91.8 Hypomagnesemia E83.42 Hyponatremia E87.1 Acute hepatitis B17.9 Coagulopathy D68.9 Hypertension I10 Hypertension type: essential hypertension Acute metabolic encephalopathy G93.41 Anemia D64.9 Hyperkalemia E87.5 DVT prophylaxis Z29.9 (1) Diabetes mellitus type 2, uncontrolled Glycemic state: with hyperglycemia Qualified Code(s): E11.65 - Type 2 diabetes mellitus with hyperglycemia (2) Diabetic neuropathy Diabetes mellitus type: type 2 Diabetes mellitus complication detail: diabetic polyneuropathy Qualified Code(s): E11.42 - Type 2 diabetes mellitus with diabetic polyneuropathy (3) Hypertension Hypertension type: essential hypertension Qualified Code(s): I10 - Essential (primary) hypertension
[2020-06-27] MEDS: ERTAPENEM SODIUM 1,000 MG in SODIUM CHLORIDE 0.9% 50 ML IV SCH (20:54)
[2020-06-28] MEDS: HEPARIN SOD 5,000 UNIT/0.5 ML VIAL SQ SCH ×3 (05:32→21:56)
[2020-06-28] MEDS: GABAPENTIN 300 MG CAP PO SCH ×4 (08:22→20:42)
[2020-06-28] MEDS: ADVANCED PROBIOTIC 1250 MG CAPSULE PO SCH (08:22)
[2020-06-28] MEDS: SODIUM CHLORIDE 1 GM TABLET PO SCH ×3 (08:22→20:42)
[2020-06-28] MEDS: FERROUS GLUCONATE 324 MG TAB PO SCH ×2 (08:22→17:21)
[2020-06-28] MEDS: MULTIVITAMIN TAB PO SCH (08:22)
[2020-06-28] MEDS: FOLIC ACID 1 MG TAB PO SCH (08:22)
[2020-06-28] MEDS: THIAMINE HCL 100 MG TAB PO SCH (08:22)
[2020-06-28] MEDS: CHOLECALCIFEROL 1,000 UNITS 25 MCG TAB PO SCH (08:23)
[2020-06-28] MEDS: INSULIN GLARGINE SOLOSTAR 100 UNITS/ML 3 ML PEN SC SCH ×2 (08:24→20:42)
[2020-06-28] MEDS: INSULIN ASPART 100 UNITS/ML 3 ML PEN SC SCH ×4 (08:24→20:43)
--- NOTE | 2020-06-28 16:51 | Orthopedic Progress Note ---
Date of Service June 28, 2020 Assessment & Plan (1) Gangrene of left foot: She has a large area of obviously necrotic tissue along the medial aspect of her left foot centered over the MTP joint. Per the patient, the appearance of the wound and her pain level are unchanged over the past week. She is 11 days out from of previous irrigation and debridement surgery by Dr. Maldonado. In my opinion, she requires extensive debridement of this necrotic tissue. However, the debridement of this large area of necrotic tissue would leave her with minimal wound closure options. I therefore think that she may require amputation of her first ray in order to adequately debride the necrotic tissue and close the wound. However, this is certainly not is not an emergent problem, as she has no evidence of significant active infection. I think this can be done basically on an elective basis over the next week or so. I will have our foot and ankle expert, Dr. Maldonado, further evaluate this patient for surgical planning. Admission and Anticipated Discharge Date Admission Date: June 14, 2020 Subjective I was asked to see the patient today for repeat evaluation of known left foot infection with necrotic tissue. This is my first time evaluating her. She is a patient of Dr. Maldonado's. He performed an irrigation and debridement about 11 days ago on June 17. The patient reports that over the past week, she has had unchanged black appearance of the wound. She reports that her pain is unchanged over the past week. She says that she has "a little bit" of pain currently. She denies any fevers, chills, or other signs of systemic illness. Physical Exam Physical Exam: Examination of her left foot reveals a fairly large area of obviously necrotic tissue. This measures about 10 cm in length and about 5 cm in width along the medial aspect of her foot, centered over the first MTP joint. There are sutures in place within this area of obviously necrotic tissue. There is no gross purulence or active or expressible drainage. Minimal surrounding erythema. No erythema, swelling, or induration around the rest of the foot. Results & Data ([facility]) Vital Signs (Past 12 Hours) Vital Signs Temp Pulse Pulse Resp BP Pulse Ox 06/28/20 16:00 37.0 C 71 18 185/94 H 95 06/28/20 11:42 37.1 C 75 17 182/78 H 94 06/28/20 08:23 36.8 C 77 18 182/91 H 92 06/28/20 07:17 75
--- NOTE | 2020-06-28 17:29 | Hospitalist Progress Note ---
Date of Service June 28, 2020 Assessment & Plan (1) Sepsis: 2nd to left foot cellulitis, gangrene, osteomyelitis, and septic arthritis of first MTP joint. Ortho consult with Dr Maldonado much appreciated -on 06/17 s/p extensive surgery on L foot. Echo without endocarditis. Blood cx's negative to date. Intra-op wound cx -- proteus with bacteroides. [facility]. Changed to IV ertapenam 1gm daily x 6 weeks on 06/20/20. PICC line placed in right upper extremity 06/22 after re evaluation of her foot, there may be a need for non urgent surgery with partial amputation, Dr Maldonado to evaluation Past surgical team to comment on the patient's SR (2) Gangrene of left foot: See above in sepsis. LLE arterial duplex study without focal occlusion of any specific vessel; diffuse atherosclerosis noted. - Dr Maldonado - 06/17/20 s/p incision and Drainage abscess left first metatarsal phalangeal joint, irrigation and debridement plantar medial neuropathic ulcer first metatarsal phalangeal joint 4 cm x 3 cm x 0.4 cm, irrigation and debridement medial neuropathic ulcer first interphalangeal joint 12 mm x 14 mm x 3 mm, irrigation and debridement necrotic ulcers left great toe 2 separate sites including skin, subcutaneous tissue, fascia and periosteum, left foot tenosynovectomy septic flexor hallucis longus tendon Intra-op culture with pansensitive proteus & bacteroides continue Ertapenem for 6 weeks total LD 08/01/2020 appreciate ortho consult/assistance, may need further wound revision (3) Osteomyelitis: MRI left foot -- 1. Small focus of osteomyelitis within the distal medial aspect of the proximal phalanx of the left first toe. Additional sites of marrow edema within the left first metatarsal head, base of the proximal phalanx of the distal phalanx co nsistent with osteitis. 2. Left first metatarsophalangeal joint effusion with synovial enhancement. No associated bony destruction adjacent to the joint. This suggests synovitis and sterility cannot be assessed by MRI. 3. Wound along the plantar medial aspect of the left first metatarsophalangeal joint. Soft tissue edema consistent with cellulitis. s/p extensive surgery L foot by Dr Maldonado 06/17/20, await re evalation (4) Cellulitis of great toe of left foot: resolving after surgery, gangrene persists POD #7 from extensive surgery also as above. Echo without obvious SBE. Blood cx's neg. Partial weight-bearing left foot only. may need wound care eval and some debridement, Dr Maldonado to re evaluate (5) Weakness of both legs: suspect 2nd to sepsis neuro exam wnl since admission improved strength since admission cont PT/OT will need rehab, [facility], [facility] is not accepting pts at this time (6) Diabetes mellitus type 2, uncontrolled: remains on basal-bolus insulin had lows on 06/20 glycemic control very adequate (7) Chronic alcohol use: no evidence of withdrawal at this time cont thiamine 200mg daily cont folate 1mg daily cont MVI (8) Diabetic neuropathy: Severe. started gabapentin 200mg TID. titrated up to 300mg TID on 06/23, continue this on discharge (9) Pulmonary nodules/lesions, multiple: Seen on CT chest earlier this fall. COVID was negative (antigen test) this admission and on past admission O2 sats stable in RA repeat COVID PCR negative as well needs f/u CT chest in 2-3 months (10) Hypomagnesemia: repleted and resolved (11) Hyponatremia: concern for siadh looks euvolemic during her stay cortisol wnl TSH minimally elevated but fT4 wnl place on sodium 1gm BID continue 1800cc fluid restriction continue the above regimen on discharge (12) Acute hepatitis: LFTs are chronically elevated, but much worse at onset of this admission. INR was also worse at 1.6. Suspect Acute alcoholic hepatitis. HepC Ab 05/15 was negative. LFTs have improved. INR has improved to 1.3 having diarrhea, stop Lactulose (13) Coagulopathy: 2nd to acute hepatitis (suspected). 1.6 INR at admission. s/p vitamin K with improved INR to 1.3. (14) Hypertension: Cont metoprolol xl. BETZAIDA will restart as blood pressure is elevated (15) Acute metabolic encephalopathy: resolved was likely 2nd sepsis stop lactulose as she is having a lot of diarrhea (16) Anemia: s/p 1 unit prcs this admission fecal occult neg h/h acceptable since then (17) Hyperkalemia: iatrogenic 2nd to K supplement and K-phos supplement both stopped (18) DVT prophylaxis: heparin SC TID local [facility] not accepting admissions at present Admission and Anticipated Discharge Date Admission Date: June 14, 2020 Subjective I was asked to see the patient today for repeat evaluation of known left foot infection with necrotic tissue. This is my first time evaluating her. She is a patient of Dr. Womack. He performed an irrigation and debridement about 11 days ago on June 17. The patient reports that over the past week, she has had unchanged black appearance of the wound. She reports that her pain is unchanged over the past week. She says that she has "a little bit" of pain c urrently. She denies any fevers, chills, or other signs of systemic illness. Review of Systems Review of Systems: Mild distress and fatigue no headache, blurry or double vision no speech or swallowing issues no chest pain, pressure or palpitations no shortness of breath, cough or wheezes no abdominal pain, nausea or vomiting, diarrhea or constipation no dysuria, hematuria or frequency no focal joint pain or swelling no back pain, CVA tenderness or radicular pain her foot has large wounds with eschar and some suture present no focal signs of weakness or numbness or altered sensation no complaints of anxiety or depression. Musculoskeletal: + joint pain (left foot pain) Neurologic: + localized weakness (legs) Endocrine: Physical Exam Physical Exam: The patient appeared chronically ill Vital signs as documented. Head exam is normocephalic atraumatic no scleral icterus Neck is without JVD, thyromegaly, or carotid bruits. Lungs are clear to auscultation, no focal loss of breath sounds Cardiac exam, Rhythm is regular.. No murmurs, rubs or gallops. Abdominal exam reveals normal bowel sounds, soft non tender, no masses Extremities are nonedematous and both pedal pulses are present Neurologic exam is alert and oriented, no focal loss of strength or sensation Skin is with two large hard black eschars on left foot at the medial MTP area Psychologically is without concerns for anxiety or depression. Results & Data Results & Data ([facility]) Vital Signs (Past 12 Hours) Vital Signs Temp Pulse Pulse Resp BP Pulse Ox 06/28/20 16:00 98.6 F 71 18 185/94 H 95 06/28/20 11:42 98.8 F 75 17 182/78 H 94 06/28/20 08:23 98.2 F 77 18 182/91 H 92 06/28/20 07:17 75 PG Care Time/CCT Total # of Minutes Spent Total Time Spent with Patient: Total time spent is greater than 50% in coordination of care (as documented) at patient's floor/unit and/or counseling patient: Coding Level of Care Code 05628 Subseq Hosp Care Lvl 2 Diagnoses Sepsis A41.9 Gangrene of left foot I96 Osteomyelitis M86.9 Cellulitis of great toe of left foot L03.032 Weakness of both legs R29.898 Diabetes mellitus type 2, uncontrolled E11.65 Glycemic state: with hyperglycemia Chronic alcohol use Z72.89 Diabetic neuropathy E11.42 Diabetes mellitus type: type 2 Diabetes mellitus complication detail: diabetic polyneuropathy Pulmonary nodules/lesions, multiple R91.8 Hypomagnesemia E83.42 Hyponatremia E87.1 Acute hepatitis B17.9 Coagulopathy D68.9 Hypertension I10 Hypertension type: essential hypertension Acute metabolic encephalopathy G93.41 Anemia D64.9 Hyperkalemia E87.5 DVT prophylaxis Z29.9 (1) Diabetes mellitus type 2, uncontrolled Glycemic state: with hyperglycemia Qualified Code(s): E11.65 - Type 2 diabetes mellitus with hyperglycemia (2) Diabetic neuropathy Diabetes mellitus type: type 2 Diabetes mellitus complication detail: diabetic polyneuropathy Qualified Code(s): E11.42 - Type 2 diabetes mellitus with diabetic polyneuropathy (3) Hypertension Hypertension type: essential hypertension Qualified Code(s): I10 - Essential (primary) hypertension
[2020-06-28] MEDS ORDERED: lisinopril 10 MG TAB PO ONE (18:00)
[2020-06-28] MEDS: ERTAPENEM SODIUM 1,000 MG in SODIUM CHLORIDE 0.9% 50 ML IV SCH (20:43)
[2020-06-28] MEDS: hydrALAZINE HCL 20 MG/ML VIAL IV PRN (21:55)
[2020-06-28] MEDS ORDERED: ALBUT/IPRATROP 3MG/0.5MG NEB 3 ML VIAL NEB STA (22:15)
[2020-06-29] MEDS: HEPARIN SOD 5,000 UNIT/0.5 ML VIAL SQ SCH ×3 (05:16→20:58)
[2020-06-29] MEDS: INSULIN ASPART 100 UNITS/ML 3 ML PEN SC SCH ×4 (08:13→20:59)
[2020-06-29] MEDS: INSULIN GLARGINE SOLOSTAR 100 UNITS/ML 3 ML PEN SC SCH ×2 (08:14→20:58)
[2020-06-29] MEDS: FERROUS GLUCONATE 324 MG TAB PO SCH ×2 (08:15→16:58)
[2020-06-29] MEDS: CHOLECALCIFEROL 1,000 UNITS 25 MCG TAB PO SCH (08:15)
[2020-06-29] MEDS: GABAPENTIN 300 MG CAP PO SCH ×3 (08:15→20:58)
[2020-06-29] MEDS: ADVANCED PROBIOTIC 1250 MG CAPSULE PO SCH (08:16)
[2020-06-29] MEDS: SODIUM CHLORIDE 1 GM TABLET PO SCH ×2 (08:16→20:59)
[2020-06-29] MEDS: THIAMINE HCL 100 MG TAB PO SCH (08:16)
[2020-06-29] MEDS: FOLIC ACID 1 MG TAB PO SCH (08:16)
[2020-06-29] MEDS: MULTIVITAMIN TAB PO SCH (08:17)
[2020-06-29] MEDS: lisinopril 10 MG TAB PO SCH (08:39)
[2020-06-29] MEDS: hydrALAZINE HCL 20 MG/ML VIAL IV PRN (15:34)
--- NOTE | 2020-06-29 15:47 | Hospitalist Progress Note ---
Date of Service June 29, 2020 Assessment & Plan (1) Sepsis: 2nd to left foot cellulitis, gangrene, osteomyelitis, and septic arthritis of first MTP joint. Ortho consult with Dr Maldonado much appreciated -on 06/17 s/p extensive surgery on L foot. Echo without endocarditis. Blood cx's negative to date. Intra-op wound cx -- proteus with bacteroides. [facility]. Changed to IV ertapenam 1gm daily x 6 weeks on 06/20/20. PICC line placed in right upper extremity 06/22 after re evaluation of her foot, there may be a need for non urgent surgery with partial amputation, Dr Maldonado to evaluation Past surgical team to comment on the patient's SR (2) Gangrene of left foot: See above in sepsis. LLE arterial duplex study without focal occlusion of any specific vessel; diffuse atherosclerosis noted. - Dr Maldonado - 06/17/20 s/p incision and Drainage abscess left first metatarsal phalangeal joint, irrigation and debridement plantar medial neuropathic ulcer first metatarsal phalangeal joint 4 cm x 3 cm x 0.4 cm, irrigation and debridement medial neuropathic ulcer first interphalangeal joint 12 mm x 14 mm x 3 mm, irrigation and debridement necrotic ulcers left great toe 2 separate sites including skin, subcutaneous tissue, fascia and periosteum, left foot tenosynovectomy septic flexor hallucis longus tendon Intra-op culture with pansensitive proteus & bacteroides continue Ertapenem for 6 weeks total LD 08/01/2020 appreciate ortho consult/assistance, may need further wound revision (3) Osteomyelitis: MRI left foot -- 1. Small focus of osteomyelitis within the distal medial aspect of the proximal phalanx of the left first toe. Additional sites of marrow edema within the left first metatarsal head, base of the proximal phalanx of the distal phalanx co nsistent with osteitis. 2. Left first metatarsophalangeal joint effusion with synovial enhancement. No associated bony destruction adjacent to the joint. This suggests synovitis and sterility cannot be assessed by MRI. 3. Wound along the plantar medial aspect of the left first metatarsophalangeal joint. Soft tissue edema consistent with cellulitis. s/p extensive surgery L foot by Dr Maldonado 06/17/20, await re evalation (4) Cellulitis of great toe of left foot: resolving after surgery, gangrene persists POD #7 from extensive surgery also as above. Echo without obvious SBE. Blood cx's neg. Partial weight-bearing left foot only. may need wound care eval and some debridement, Dr Maldonado to re evaluate (5) Weakness of both legs: suspect 2nd to sepsis neuro exam wnl since admission improved strength since admission cont PT/OT will need rehab, [facility], [facility] is not accepting pts at this time (6) Diabetes mellitus type 2, uncontrolled: remains on basal-bolus insulin had lows on 06/20 glycemic control very adequate (7) Chronic alcohol use: no evidence of withdrawal at this time cont thiamine 200mg daily cont folate 1mg daily cont MVI (8) Diabetic neuropathy: Severe. started gabapentin 200mg TID. titrated up to 300mg TID on 06/23, continue this on discharge (9) Pulmonary nodules/lesions, multiple: Seen on CT chest earlier this fall. COVID was negative (antigen test) this admission and on past admission O2 sats stable in RA repeat COVID PCR negative as well needs f/u CT chest in 2-3 months (10) Hypomagnesemia: repleted and resolved (11) Hyponatremia: concern for siadh looks euvolemic during her stay cortisol wnl TSH minimally elevated but fT4 wnl place on sodium 1gm BID continue 1800cc fluid restriction continue the above regimen on discharge (12) Acute hepatitis: LFTs are chronically elevated, but much worse at onset of this admission. INR was also worse at 1.6. Suspect Acute alcoholic hepatitis. HepC Ab 05/15 was negative. LFTs have improved. INR has improved to 1.3 having diarrhea, stop Lactulose (13) Coagulopathy: 2nd to acute hepatitis (suspected). 1.6 INR at admission. s/p vitamin K with improved INR to 1.3. (14) Hypertension: Cont metoprolol xl. BETZAIDA was restarted will be increased on 06/29 as blood pressure is elevated (15) Acute metabolic encephalopathy: resolved was likely 2nd sepsis stop lactulose as she is having a lot of diarrhea (16) Anemia: s/p 1 unit prcs this admission fecal occult neg h/h acceptable since then (17) Hyperkalemia: iatrogenic 2nd to K supplement and K-phos supplement both stopped (18) DVT prophylaxis: heparin SC TID local [facility] not accepting admissions at present Admission and Anticipated Discharge Date Admission Date: June 14, 2020 Subjective Patient is no complaints or problems. She is disappointed that she needs a revision of her foot with further amputation of likely her first metatarsal and toe however she is willing to wait to get the job done correctly she has no acute medical needs at this point time but cannot be transition to rehab until her surgery is complete with a tentative surgical date for sometime next week Review of Systems Review of Systems: Mild distress and fatigue no headache, blurry or double vision no speech or swallowing issues no chest pain, pressure or palpitations no shortness of breath, cough or wheezes no abdominal pain, nausea or vomiting, diarrhea or constipation no dysuria, hematuria or frequency no focal joint pain or swelling no back pain, CVA tenderness or radicular pain her foot has large wounds with eschar and some suture present no focal signs of weakness or numbness or altered sensation no complaints of anxiety or depression. Physical Exam Physical Exam: The patient appeared chronically ill Vital signs as documented. Head exam is normocephalic atraumatic no scleral icterus Neck is without JVD, thyromegaly, or carotid bruits. Lungs are clear to auscultation, no focal loss of breath sounds Cardiac exam, Rhythm is regular.. No murmurs, rubs or gallops. Abdominal exam reveals normal bowel sounds, soft non tender, no masses Extremities are nonedematous and both pedal pulses are present Neurologic exam is alert and oriented, no focal loss of strength or sensation Skin is with two large hard black eschars on left foot at the medial MTP area Psychologically is without concerns for anxiety or depression. Results & Data Results & Data ([facility]) Vital Signs (Past 12 Hours) Vital Signs Temp Pulse Pulse Pulse Resp BP BP 06/29/20 15:18 98.1 F 76 20 186/79 H 06/29/20 14:19 66 168/77 H 06/29/20 11:12 97.7 F 70 18 179/71 H 06/29/20 07:41 66 06/29/20 07:19 97.7 F 72 18 165/76 H 06/29/20 04:47 98.4 F 93 H 20 153/65 H Pulse Ox 06/29/20 15:18 96 06/29/20 14:19 06/29/20 11:12 95 06/29/20 07:41 06/29/20 07:19 95 06/29/20 04:47 95 PG Care Time/CCT Total # of Minutes Spent Total Time Spent with Patient: Total time spent is greater than 50% in coordination of care (as documented) at patient's floor/unit and/or counseling patient: Coding Level of Care Code 93654 Subseq Hosp Care Lvl 2 Diagnoses Sepsis A41.9 Gangrene of left foot I96 Osteomyelitis M86.9 Cellulitis of great toe of left foot L03.032 Weakness of both legs R29.898 Diabetes mellitus type 2, uncontrolled E11.65 Glycemic state: with hyperglycemia Chronic alcohol use Z72.89 Diabetic neuropathy E11.42 Diabetes mellitus type: type 2 Diabetes mellitus complication detail: diabetic polyneuropathy Pulmonary nodules/lesions, multiple R91.8 Hypomagnesemia E83.42 Hyponatremia E87.1 Acute hepatitis B17.9 Coagulopathy D68.9 Hypertension I10 Hypertension type: essential hypertension Acute metabolic encephalopathy G93.41 Anemia D64.9 Hyperkalemia E87.5 DVT prophylaxis Z29.9 (1) Diabetes mellitus type 2, uncontrolled Glycemic state: with hyperglycemia Qualified Code(s): E11.65 - Type 2 diabetes mellitus with hyperglycemia (2) Diabetic neuropathy Diabetes mellitus type: type 2 Diabetes mellitus complication detail: diabetic polyneuropathy Qualified Code(s): E11.42 - Type 2 diabetes mellitus with diabetic polyneuropathy (3) Hypertension Hypertension type: essential hypertension Qualified Code(s): I10 - Essential (primary) hypertension
[2020-06-29] MEDS: ERTAPENEM SODIUM 1,000 MG in SODIUM CHLORIDE 0.9% 50 ML IV SCH (20:58)
[2020-06-30] MEDS: CHOLECALCIFEROL 1,000 UNITS 25 MCG TAB PO SCH (01:39)
[2020-06-30] MEDS: HEPARIN SOD 5,000 UNIT/0.5 ML VIAL SQ SCH ×3 (05:30→20:30)
[2020-06-30] MEDS: INSULIN ASPART 100 UNITS/ML 3 ML PEN SC SCH ×4 (10:00→20:30)
[2020-06-30] MEDS: THIAMINE HCL 100 MG TAB PO SCH (10:40)
[2020-06-30] MEDS: FOLIC ACID 1 MG TAB PO SCH (10:40)
[2020-06-30] MEDS: GABAPENTIN 300 MG CAP PO SCH ×3 (10:40→20:29)
[2020-06-30] MEDS: SODIUM CHLORIDE 1 GM TABLET PO SCH ×2 (10:40→20:29)
[2020-06-30] MEDS: MULTIVITAMIN TAB PO SCH (10:40)
[2020-06-30] MEDS: FERROUS GLUCONATE 324 MG TAB PO SCH ×2 (10:40→17:00)
[2020-06-30] MEDS: lisinopril 10 MG TAB PO SCH (10:40)
[2020-06-30] MEDS: ADVANCED PROBIOTIC 1250 MG CAPSULE PO SCH (10:40)
--- NOTE | 2020-06-30 17:40 | Hospitalist Progress Note ---
Date of Service June 30, 2020 Assessment & Plan (1) Sepsis: 2nd to left foot cellulitis, gangrene, osteomyelitis, and septic arthritis of first MTP joint. Ortho consult with Dr Maldonado much appreciated -on 06/17 s/p extensive surgery on L foot. Echo without endocarditis. Blood cx's negative to date. Intra-op wound cx -- proteus with bacteroides. [facility]. Changed to IV ertapenam 1gm daily x 6 weeks on 06/20/20. PICC line placed in right upper extremity 06/22 after re evaluation of her foot, there may be a need for non urgent surgery with partial amputation, Dr Maldonado to evaluation Past surgical team to comment on the patient's SR (2) Gangrene of left foot: See above in sepsis. LLE arterial duplex study without focal occlusion of any specific vessel; diffuse atherosclerosis noted. - Dr Maldonado - 06/17/20 s/p incision and Drainage abscess left first metatarsal phalangeal joint, irrigation and debridement plantar medial neuropathic ulcer first metatarsal phalangeal joint 4 cm x 3 cm x 0.4 cm, irrigation and debridement medial neuropathic ulcer first interphalangeal joint 12 mm x 14 mm x 3 mm, irrigation and debridement necrotic ulcers left great toe 2 separate sites including skin, subcutaneous tissue, fascia and periosteum, left foot tenosynovectomy septic flexor hallucis longus tendon Intra-op culture with pansensitive proteus & bacteroides continue Ertapenem for 6 weeks total LD 08/01/2020 appreciate ortho consult/assistance, may need further wound revision (3) Osteomyelitis: MRI left foot -- 1. Small focus of osteomyelitis within the distal medial aspect of the proximal phalanx of the left first toe. Additional sites of marrow edema within the left first metatarsal head, base of the proximal phalanx of the distal phalanx co nsistent with osteitis. 2. Left first metatarsophalangeal joint effusion with synovial enhancement. No associated bony destruction adjacent to the joint. This suggests synovitis and sterility cannot be assessed by MRI. 3. Wound along the plantar medial aspect of the left first metatarsophalangeal joint. Soft tissue edema consistent with cellulitis. s/p extensive surgery L foot by Dr Maldonado 06/17/20, await re evalation (4) Cellulitis of great toe of left foot: resolving after surgery, gangrene persists POD #7 from extensive surgery also as above. Echo without obvious SBE. Blood cx's neg. Partial weight-bearing left foot only. may need wound care eval and some debridement, Dr Maldonado to re evaluate (5) Weakness of both legs: suspect 2nd to sepsis neuro exam wnl since admission improved strength since admission cont PT/OT will need rehab, [facility], center [facility] is not accepting pts at this time (6) Diabetes mellitus type 2, uncontrolled: remains on basal-bolus insulin had lows on 06/20 glycemic control very adequate (7) Chronic alcohol use: no evidence of withdrawal at this time cont thiamine 200mg daily cont folate 1mg daily cont MVI (8) Diabetic neuropathy: Severe. started gabapentin 200mg TID. titrated up to 300mg TID on 06/23, continue this on discharge (9) Pulmonary nodules/lesions, multiple: Seen on CT chest earlier this fall. COVID was negative (antigen test) this admission and on past admission O2 sats stable in RA repeat COVID PCR negative as well needs f/u CT chest in 2-3 months (10) Hypomagnesemia: repleted and resolved (11) Hyponatremia: concern for siadh looks euvolemic during her stay cortisol wnl TSH minimally elevated but fT4 wnl place on sodium 1gm BID continue 1800cc fluid restriction continue the above regimen on discharge (12) Acute hepatitis: LFTs are chronically elevated, but much worse at onset of this admission. INR was also worse at 1.6. Suspect Acute alcoholic hepatitis. HepC Ab 05/15 was negative. LFTs have improved. INR has improved to 1.3 having diarrhea, stop Lactulose (13) Coagulopathy: 2nd to acute hepatitis (suspected). 1.6 INR at admission. s/p vitamin K with improved INR to 1.3. (14) Hypertension: Cont metoprolol xl. BETZAIDA was restarted will be increased on 06/29 as blood pressure is elevated (15) Acute metabolic encephalopathy: resolved was likely 2nd sepsis stop lactulose as she is having a lot of diarrhea (16) Anemia: s/p 1 unit prcs this admission fecal occult neg h/h acceptable since then (17) Hyperkalemia: iatrogenic 2nd to K supplement and K-phos supplement both stopped (18) DVT prophylaxis: heparin SC TID local [facility] not accepting admissions at present Admission and Anticipated Discharge Date Admission Date: June 14, 2020 Subjective Patient is no complaints or problems. Very little change in this patient's medical management as were waiting for foot surgery next week. She is disappointed that she needs a revision of her foot with further amputation of likely her first metatarsal and toe however she is willing to wait to get the job done correctly she has no acute medical needs at this point time but cannot be transition to rehab until her surgery is complete with a tentative surgical date for sometime next week Review of Systems Review of Systems: Mild distress and fatigue no headache, blurry or double vision no speech or swallowing issues no chest pain, pressure or palpitations no shortness of breath, cough or wheezes no abdominal pain, nausea or vomiting, diarrhea or constipation no dysuria, hematuria or frequency no focal joint pain or swelling no back pain, CVA tenderness or radicular pain her foot has large wounds with eschar and some suture present no focal signs of weakness or numbness or altered sensation no complaints of anxiety or depression. Physical Exam Physical Exam: The patient appeared chronically ill Vital signs as documented. Head exam is normocephalic atraumatic no scleral icterus Neck is without JVD, thyromegaly, or carotid bruits. Lungs are clear to auscultation, no focal loss of breath sounds Cardiac exam, Rhythm is regular.. No murmurs, rubs or gallops. Abdominal exam reveals normal bowel sounds, soft non tender, no masses Extremities are nonedematous and both pedal pulses are present Neurologic exam is alert and oriented, no focal loss of strength or sensation Skin is with two large hard black eschars on left foot at the medial MTP area Psychologically is without concerns for anxiety or depression. PG Care Time/CCT Total # of Minutes Spent Total Time Spent with Patient: Total time spent is greater than 50% in coordination of care (as documented) at patient's floor/unit and/or counseling patient: Coding Level of Care Code 70032 Subseq Hosp Care Lvl 2 Diagnoses Sepsis A41.9 Gangrene of left foot I96 Osteomyelitis M86.9 Cellulitis of great toe of left foot L03.032 Weakness of both legs R29.898 Diabetes mellitus type 2, uncontrolled E11.65 Glycemic state: with hyperglycemia Chronic alcohol use Z72.89 Diabetic neuropathy E11.42 Diabetes mellitus type: type 2 Diabetes mellitus complication detail: diabetic polyneuropathy Pulmonary nodules/lesions, multiple R91.8 Hypomagnesemia E83.42 Hyponatremia E87.1 Acute hepatitis B17.9 Coagulopathy D68.9 Hypertension I10 Hypertension type: essential hypertension Acute metabolic encephalopathy G93.41 Anemia D64.9 Hyperkalemia E87.5 DVT prophylaxis Z29.9 (1) Diabetes mellitus type 2, uncontrolled Glycemic state: with hyperglycemia Qualified Code(s): E11.65 - Type 2 diabetes mellitus with hyperglycemia (2) Diabetic neuropathy Diabetes mellitus type: type 2 Diabetes mellitus complication detail: diabetic polyneuropathy Qualified Code(s): E11.42 - Type 2 diabetes mellitus with diabetic polyneuropathy (3) Hypertension Hypertension type: essential hypertension Qualified Code(s): I10 - Essential (primary) hypertension
[2020-06-30] MEDS: INSULIN GLARGINE SOLOSTAR 100 UNITS/ML 3 ML PEN SC SCH ×2 (18:47→20:30)
[2020-06-30] MEDS: ERTAPENEM SODIUM 1,000 MG in SODIUM CHLORIDE 0.9% 50 ML IV SCH (20:34)
[2020-07-01] MEDS: HEPARIN SOD 5,000 UNIT/0.5 ML VIAL SQ SCH ×3 (06:22→21:34)
--- NOTE | 2020-07-01 08:17 | Hospitalist Progress Note ---
Date of Service July 01, 2020 Assessment & Plan (1) Sepsis: 2nd to left foot cellulitis, gangrene, osteomyelitis, and septic arthritis of first MTP joint. Ortho consult with Dr Maldonado much appreciated -on 06/17 s/p extensive surgery on L foot. Echo without endocarditis. Blood cx's negative to date. Intra-op wound cx -- proteus with bacteroides. [facility]. Changed to IV ertapenam 1gm daily x 6 weeks on 06/20/20. PICC line placed in right upper extremity 06/22 after re evaluation of her foot, there may be a need for non urgent surgery with partial amputation, Dr Maldonado to evaluation Past surgical team to comment on the patient's SR (2) Gangrene of left foot: See above in sepsis. LLE arterial duplex study without focal occlusion of any specific vessel; diffuse atherosclerosis noted. - Dr Maldonado - 06/17/20 s/p incision and Drainage abscess left first metatarsal phalangeal joint, irrigation and debridement plantar medial neuropathic ulcer first metatarsal phalangeal joint 4 cm x 3 cm x 0.4 cm, irrigation and debridement medial neuropathic ulcer first interphalangeal joint 12 mm x 14 mm x 3 mm, irrigation and debridement necrotic ulcers left great toe 2 separate sites including skin, subcutaneous tissue, fascia and periosteum, left foot tenosynovectomy septic flexor hallucis longus tendon Intra-op culture with pansensitive proteus & bacteroides continue Ertapenem for 6 weeks total LD 08/01/2020 appreciate ortho consult/assistance, may need further wound revision (3) Osteomyelitis: MRI left foot -- 1. Small focus of osteomyelitis within the distal medial aspect of the proximal phalanx of the left first toe. Additional sites of marrow edema within the left first metatarsal head, base of the proximal phalanx of the distal phalanx co nsistent with osteitis. 2. Left first metatarsophalangeal joint effusion with synovial enhancement. No associated bony destruction adjacent to the joint. This suggests synovitis and sterility cannot be assessed by MRI. 3. Wound along the plantar medial aspect of the left first metatarsophalangeal joint. Soft tissue edema consistent with cellulitis. s/p extensive surgery L foot by Dr Maldonado 06/17/20, await re evalation (4) Cellulitis of great toe of left foot: resolving after surgery, gangrene persists POD #7 from extensive surgery also as above. Echo without obvious SBE. Blood cx's neg. Partial weight-bearing left foot only. may need wound care eval and some debridement, Dr Maldonado to re evaluate (5) Weakness of both legs: suspect 2nd to sepsis neuro exam wnl since admission improved strength since admission cont PT/OT will need rehab, [facility], [facility] is not accepting pts at this time (6) Diabetes mellitus type 2, uncontrolled: remains on basal-bolus insulin had lows on 06/20 glycemic control very adequate (7) Chronic alcohol use: no evidence of withdrawal at this time cont thiamine 200mg daily cont folate 1mg daily cont MVI (8) Diabetic neuropathy: Severe. started gabapentin 200mg TID. titrated up to 300mg TID on 06/23, continue this on discharge (9) Pulmonary nodules/lesions, multiple: Seen on CT chest earlier this fall. COVID was negative (antigen test) this admission and on past admission O2 sats stable in RA repeat COVID PCR negative as well needs f/u CT chest in 2-3 months (10) Hypomagnesemia: repleted and resolved (11) Hyponatremia: concern for siadh looks euvolemic during her stay cortisol wnl TSH minimally elevated but fT4 wnl place on sodium 1gm BID continue 1800cc fluid restriction continue the above regimen on discharge (12) Acute hepatitis: LFTs are chronically elevated, but much worse at onset of this admission. INR was also worse at 1.6. Suspect Acute alcoholic hepatitis. HepC Ab 05/15 was negative. LFTs have improved. INR has improved to 1.3 having diarrhea, stop Lactulose (13) Coagulopathy: 2nd to acute hepatitis (suspected). 1.6 INR at admission. s/p vitamin K with improved INR to 1.3. (14) Hypertension: Cont metoprolol xl. BETZAIDA was restarted will be increased on 06/29 as blood pressure is elevated (15) Acute metabolic encephalopathy: resolved was likely 2nd sepsis stop lactulose as she is having a lot of diarrhea (16) Anemia: s/p 1 unit prcs this admission fecal occult neg h/h acceptable since then (17) Hyperkalemia: iatrogenic 2nd to K supplement and K-phos supplement both stopped (18) DVT prophylaxis: heparin SC TID local [facility] not accepting admissions at present Admission and Anticipated Discharge Date Admission Date: June 14, 2020 Subjective Patient is no complaints or problems. Very little change in this patient's medical management as were waiting for foot surgery next week. She is disappointed that she needs a revision of her foot with further amputation of likely her first metatarsal and toe however she is willing to wait to get the job done correctly she has no acute medical needs at this point time but cannot be transition to rehab until her surgery is complete with a tentative surgical date for sometime next week Review of Systems Review of Systems: Mild distress and fatigue no headache, blurry or double vision no speech or swallowing issues no chest pain, pressure or palpitations no shortness of breath, cough or wheezes no abdominal pain, nausea or vomiting, diarrhea or constipation no dysuria, hematuria or frequency no focal joint pain or swelling no back pain, CVA tenderness or radicular pain her foot has large wounds with eschar and some suture present no focal signs of weakness or numbness or altered sensation no complaints of anxiety or depression. Physical Exam Physical Exam: The patient appeared chronically ill Vital signs as documented. Head exam is normocephalic atraumatic no scleral icterus Neck is without JVD, thyromegaly, or carotid bruits. Lungs are clear to auscultation, no focal loss of breath sounds Cardiac exam, Rhythm is regular.. No murmurs, rubs or gallops. Abdominal exam reveals normal bowel sounds, soft non tender, no masses Extremities are nonedematous and both pedal pulses are present Neurologic exam is alert and oriented, no focal loss of strength or sensation Skin is with two large hard black eschars on left foot at the medial MTP area Psychologically is without concerns for anxiety or depression. Results & Data Results & Data ([facility]) Vital Signs (Past 12 Hours) Vital Signs Temp Pulse Pulse Pulse Resp BP BP 07/01/20 07:54 98.2 F 80 20 187/85 H 07/01/20 04:00 98.2 F 73 18 164/70 H 07/01/20 00:42 98.4 F 78 18 169/73 H 06/30/20 23:00 70 Pulse Ox 07/01/20 07:54 92 07/01/20 04:00 92 07/01/20 00:42 93 06/30/20 23:00 PG Care Time/CCT Total # of Minutes Spent Total Time Spent with Patient: Total time spent is greater than 50% in coordination of care (as documented) at patient's floor/unit and/or counseling patient: Coding Level of Care Code 76912 Subseq Hosp Care Lvl 2 Diagnoses Sepsis A41.9 Gangrene of left foot I96 Osteomyelitis M86.9 Cellulitis of great toe of left foot L03.032 Weakness of both legs R29.898 Diabetes mellitus type 2, uncontrolled E11.65 Glycemic state: with hyperglycemia Chronic alcohol use Z72.89 Diabetic neuropathy E11.42 Diabetes mellitus complication detail: diabetic polyneuropathy Diabetes mellitus type: type 2 Pulmonary nodules/lesions, multiple R91.8 Hypomagnesemia E83.42 Hyponatremia E87.1 Acute hepatitis B17.9 Coagulopathy D68.9 Hypertension I10 Hypertension type: essential hypertension Acute metabolic encephalopathy G93.41 Anemia D64.9 Hyperkalemia E87.5 DVT prophylaxis Z29.9 (1) Diabetic neuropathy Diabetes mellitus complication detail: diabetic polyneuropathy Diabetes mellitus type: type 2 Qualified Code(s): E11.42 - Type 2 diabetes mellitus with diabetic polyneuropathy (2) Diabetes mellitus type 2, uncontrolled Glycemic state: with hyperglycemia Qualified Code(s): E11.65 - Type 2 diabetes mellitus with hyperglycemia (3) Hypertension Hypertension type: essential hypertension Qualified Code(s): I10 - Essential (primary) hypertension
[2020-07-01] MEDS: INSULIN ASPART 100 UNITS/ML 3 ML PEN SC SCH ×4 (08:21→21:42)
[2020-07-01] MEDS: FERROUS GLUCONATE 324 MG TAB PO SCH ×2 (08:22→17:05)
[2020-07-01] MEDS: FOLIC ACID 1 MG TAB PO SCH (08:22)
[2020-07-01] MEDS: INSULIN GLARGINE SOLOSTAR 100 UNITS/ML 3 ML PEN SC SCH ×2 (08:22→21:37)
[2020-07-01] MEDS: ADVANCED PROBIOTIC 1250 MG CAPSULE PO SCH (08:23)
[2020-07-01] MEDS: GABAPENTIN 300 MG CAP PO SCH ×3 (08:23→21:34)
[2020-07-01] MEDS: CHOLECALCIFEROL 1,000 UNITS 25 MCG TAB PO SCH (08:24)
[2020-07-01] MEDS: THIAMINE HCL 100 MG TAB PO SCH (08:24)
[2020-07-01] MEDS: lisinopril 10 MG TAB PO SCH (08:24)
[2020-07-01] MEDS: SODIUM CHLORIDE 1 GM TABLET PO SCH ×2 (08:24→21:34)
[2020-07-01] MEDS: MULTIVITAMIN TAB PO SCH (08:25)
[2020-07-01] MEDS: oxyCODONE HCL IR 5 MG TAB (IMMEDIATE RELEASE) PO PRN (11:00)
[2020-07-01] MEDS: hydrALAZINE HCL 20 MG/ML VIAL IV PRN (11:08)
[2020-07-01] MEDS: ERTAPENEM SODIUM 1,000 MG in SODIUM CHLORIDE 0.9% 50 ML IV SCH (21:31)
[2020-07-02] MEDS: HEPARIN SOD 5,000 UNIT/0.5 ML VIAL SQ SCH ×3 (06:20→21:48)
[2020-07-02] MEDS: ADVANCED PROBIOTIC 1250 MG CAPSULE PO SCH (08:30)
[2020-07-02] MEDS: lisinopril 10 MG TAB PO SCH (08:30)
[2020-07-02] MEDS: FOLIC ACID 1 MG TAB PO SCH (08:30)
[2020-07-02] MEDS: FERROUS GLUCONATE 324 MG TAB PO SCH ×2 (08:30→17:21)
[2020-07-02] MEDS: CHOLECALCIFEROL 1,000 UNITS 25 MCG TAB PO SCH (08:30)
[2020-07-02] MEDS: SODIUM CHLORIDE 1 GM TABLET PO SCH ×2 (08:30→20:34)
[2020-07-02] MEDS: INSULIN GLARGINE SOLOSTAR 100 UNITS/ML 3 ML PEN SC SCH (08:30)
[2020-07-02] MEDS: INSULIN ASPART 100 UNITS/ML 3 ML PEN SC SCH ×5 (08:30→23:49)
[2020-07-02] MEDS: GABAPENTIN 300 MG CAP PO SCH ×3 (08:30→20:34)
[2020-07-02] MEDS: THIAMINE HCL 100 MG TAB PO SCH (08:30)
[2020-07-02] MEDS: MULTIVITAMIN TAB PO SCH (08:30)
[2020-07-02 08:41] LABS: Hematocrit (blood only) 30.9 % (37-47); Hemoglobin 9.9 g/dL (12.0-16.0); Mean Corpuscular Hemoglobin 32.6 pg (25-34); Mean Corpuscular Volume 101.6 fL (80-100); Mean Platelet Volume 10.1 fL (7.4-10.4); Platelet Count 327 K/uL (130-400); RDW Coefficient of Variation 16.1 % (11.5-14.5); RDW Standard Deviation 60.5 fL (36.4-46.3); Red Blood Count 3.04 M/uL (4.2-5.4); White Blood Count 9.81 K/uL (4.8-10.8)
[2020-07-02 08:59] LABS: INR 1.2 (0.9-1.1); Prothrombin Time 12.5 Seconds (9.0-12.0)
[2020-07-02 09:06] LABS: Albumin Level 2.1 gm/dl (3.4-5.0); BUN Creatinine Ratio 17.5 (10-20); Calcium 8.9 mg/dl (8.5-10.1); Creatinine Clr Calc Pharmacy 114.7 ml/min; Est GFR (African American) 119.7; Est GFR (Non-African American) 103.3; Potassium 3.9 mmol/L (3.5-5.1)
[2020-07-02 09:09] LABS: Albumin Globulin Ratio 0.5 (0.9-2); Bilirubin,Total 0.4 mg/dl (0.2-1); Globulin 4.6 gm/dl (2.5-4.0); Total Protein 6.7 gm/dl (6.4-8.2)
[2020-07-02] MEDS: hydrALAZINE HCL 20 MG/ML VIAL IV PRN (11:19)
--- NOTE | 2020-07-02 13:26 | XRay Report ---
XR chest 2V PA/lateral HISTORY: Shortness of breath. COMPARISON: Chest 06/22/2020. FINDINGS: No pneumothorax. Small bilateral pleural effusions. Diffuse interstitial and vascular thick ening has slightly progressed. This is consistent with pulmonary edema. Bibasilar airspace opacities are again noted. This may represent layering pleural effusions. The heart remains mildly enlarged. A right PICC terminates at the distal SVC. IMPRESSION: Interval progression of the pulmonary edema and small bilateral pleural effusions. ACT 112: Negative or not required by law. Electronically signed by: Shree Santiago M.D. 07/02/2020 1:25 PM
[2020-07-02] MEDS ORDERED: FUROSEMIDE 20 MG in SYRINGE 0 ML IV ONE (17:15)
--- NOTE | 2020-07-02 17:18 | Hospitalist Progress Note ---
Date of Service July 02, 2020 Assessment & Plan (1) Sepsis: 2nd to left foot cellulitis, gangrene, osteomyelitis, and septic arthritis of first MTP joint. Ortho consult with Dr Maldonado much appreciated -on 06/17 s/p extensive surgery on L foot. Echo without endocarditis. Blood cx's negative to date. Intra-op wound cx -- proteus with bacteroides. Appreciate [facility] ID consultation and recs. Changed to IV ertapenam 1gm daily x 6 weeks on 06/20/20. PICC line placed in right upper extremity 06/22 after re evaluation of her foot, there may be a need for non urgent surgery with partial amputation, Dr Maldonado to evaluation (2) Gangrene of left foot: See above in sepsis. LLE arterial duplex study without focal occlusion of any specific vessel; diffuse atherosclerosis noted. - Dr Maldonado - 06/17/20 s/p incision and Drainage abscess left first metatarsal phalangeal joint, irrigation and debridement plantar medial neuropathic ulcer first metatarsal phalangeal joint 4 cm x 3 cm x 0.4 cm, irrigation and debridement medial neuropathic ulcer first interphalangeal joint 12 mm x 14 mm x 3 mm, irrigation and debridement necrotic ulcers left great toe 2 separate sites including skin, subcutaneous tissue, fascia and periosteum, left foot tenosynovectomy septic flexor hallucis longus tendon Intra-op culture with pansensitive proteus & bacteroides continue Ertapenem for 6 weeks total LD 08/01/2020 appreciate ortho consult/assistance, may need further wound revision (3) Osteomyelitis: MRI left foot -- 1. Small focus of osteomyelitis within the distal medial aspect of the proximal phalanx of the left first toe. Additional sites of marrow edema within the left first metatarsal head, base of the proximal phalanx of the distal phalanx consistent with osteitis. 2. Left first metatarsophalangeal joint effusion with synovial enhancement. No associated bony destruction adjacent to the joint. This suggests synovitis and sterility cannot be assessed by MRI. 3. Wound along the plantar medial aspect of the left first metatarsophalangeal joint. Soft tissue edema consistent with cellulitis. s/p extensive surgery L foot by Dr Maldonado 06/17/20, await re evalation (4) Cellulitis of great toe of left foot: resolving after surgery, gangrene persists Post op as above Echo without obvious SBE. Blood cx's neg. Partial weight-bearing left foot only. may need wound care eval and some debridement, Dr Maldonado to re evaluate (5) Weakness of both legs: suspect 2nd to sepsis neuro exam wnl since admission improved strength since admission cont PT/OT will need rehab (6) Diabetes mellitus type 2, uncontrolled: remains on basal-bolus insulin had lows on 06/20 Hyperglycemic today - will consult pharmacy for management (7) Chronic alcohol use: no evidence of withdrawal at this time cont thiamine 200mg daily cont folate 1mg daily cont MVI (8) Diabetic neuropathy: Severe. started gabapentin 200mg TID. titrated up to 300mg TID on 06/23, continue this on discharge (9) Pulmonary nodules/lesions, multiple: Seen on CT chest earlier this fall. COVID was negative (antigen test) this admission and on past admission O2 sats stable in RA repeat COVID PCR negative as well needs f/u CT chest in 2-3 months (10) Hypomagnesemia: repleted and resolved (11) Hyponatremia: concern for siadh looks euvolemic during her stay cortisol wnl TSH minimally elevated but fT4 wnl place on sodium 1gm BID continue 1800cc fluid restriction - now with resolution of hyponatremia continue the above regimen on discharge (12) Acute hepatitis: LFTs are chronically elevated, but much worse at onset of this admission - now much improved, ALT with mild elevation INR was also worse at 1.6 and now improved to 1.2 Suspect Acute alcoholic hepatitis. HepC Ab 05/15 was negative. Patient was having diarrhea so lactulose was stopped (13) Coagulopathy: 2nd to acute hepatitis (suspected), possibly with nutritional component as patient had improvement with vitamin K administartion 1.6 INR at admission. s/p vitamin K with improved INR to 1.2. (14) Hypertension: Metoprolol was held, likely for initial low blood pressure - will resume at this point given elevated bps. If pressures not better controlled with this, will increase BETZAIDA BETZAIDA continued at 10 mg daily Patient has been hypertensive, utilizing prn hydralazine (15) Acute metabolic encephalopathy: resolved was likely 2nd sepsis stop lactulose as she is having a lot of diarrhea (16) Anemia: s/p 1 unit prcs this admission fecal occult neg h/h acceptable since then - stable around 10 (17) Hyperkalemia: iatrogenic 2nd to K supplement and K-phos supplement both stopped (18) Shortness of breath: 07/02 - 2 view chest xray showing Interval progression of the pulmonary edema and small bilateral pleural effusions. Echo on 06/15 without reduced EF Patient has received quite a bit of IV fluid over her stay - possibly iatrogenic fluid overload Will give 20 mg IV lasix Encourage IS (19) DVT prophylaxis: heparin SC TID CM working on placement - [facility] Admission and Anticipated Discharge Date Admission Date: June 14, 2020 Subjective Ms. Marquez is feeling short of breath, no cough. Pain in lower extremities controlled. Review of Systems Constitutional: no fever, no chills and no body aches Respiratory: as per Subjective / HPI Cardiovascular: no chest pain and no palpitations Gastrointestinal: no abdominal pain, no nausea and no vomiting Genitourinary: no dysuria and no urinary hesitancy Musculoskeletal: no back pain and no joint pain Integumentary: no rash Physical Exam Physical Exam: General: no distress Eyes: normal inspection, PERLL Respiratory: chest non tender, clear to auscultation, diminished breath sounds bilateral bases, no respiratory distress, no accessory muscle use Cardiac: regular rate and rhythm, no rub or gallop, no murmur, no edema, no jvd GI/: active bowel sounds, no abd pain or tenderness, soft, non distended Extremities: normal range of motion, normal strength, non tender Neuro/Psych: alert and oriented x 3, normal mood and affect Skin: normal color, dry Results & Data Results & Data ([facility]) Vital Signs (Past 12 Hours) Vital Signs Temp Pulse Pulse Resp BP BP Pulse Ox 07/02/20 16:20 88 07/02/20 15:47 36.5 C 103 H 19 102/65 95 07/02/20 12:01 131/73 07/02/20 11:18 36.9 C 93 H 16 202/90 H 92 07/02/20 08:35 175/79 H 07/02/20 07:20 36.8 C 82 16 195/82 H 93 07/02/20 07:09 94 H PG Care Time/CCT Total # of Minutes Spent Total Time Spent with Patient: Total time spent is greater than 50% in coordination of care (as documented) at patient's floor/unit and/or counseling patient: Coding Level of Care Code 82181 Subseq Hosp Care Lvl 3 Diagnoses Sepsis A41.9 Gangrene of left foot I96 Osteomyelitis M86.9 Cellulitis of great toe of left foot L03.032 Weakness of both legs R29.898 Diabetes mellitus type 2, uncontrolled E11.65 Glycemic state: with hyperglycemia Chronic alcohol use Z72.89 Diabetic neuropathy E11.42 Diabetes mellitus type: type 2 Diabetes mellitus complication detail: diabetic polyneuropathy Pulmonary nodules/lesions, multiple R91.8 Hypomagnesemia E83.42 Hyponatremia E87.1 Acute hepatitis B17.9 Coagulopathy D68.9 Hypertension I10 Hypertension type: essential hypertension Acute metabolic encephalopathy G93.41 Anemia D64.9 Hyperkalemia E87.5 Shortness of breath R06.02 DVT prophylaxis Z29.9 (1) Diabetes mellitus type 2, uncontrolled Glycemic state: with hyperglycemia Qualified Code(s): E11.65 - Type 2 diabetes mellitus with hyperglycemia (2) Diabetic neuropathy Diabetes mellitus type: type 2 Diabetes mellitus complication detail: diabe tic polyneuropathy Qualified Code(s): E11.42 - Type 2 diabetes mellitus with diabetic polyneuropathy (3) Hypertension Hypertension type: essential hypertension Qualified Code(s): I10 - Essential (primary) hypertension
[2020-07-02] MEDS ORDERED: PHARMACY GLYCEMIC MGMT CONSULT PRN (17:25)
[2020-07-02] MEDS ORDERED: INSULIN GLARGINE SOLOSTAR 100 UNITS/ML 3 ML PEN SC ONE (17:45)
[2020-07-02] MEDS: ERTAPENEM SODIUM 1,000 MG in SODIUM CHLORIDE 0.9% 50 ML IV SCH (20:33)
[2020-07-02] MEDS: CARBOHYDRATES FOR HYPOGLYCEMIA PO PRN (23:49)
[2020-07-03] MEDS: INSULIN ASPART 100 UNITS/ML 3 ML PEN SC SCH ×5 (04:00→21:52)
[2020-07-03] MEDS: HEPARIN SOD 5,000 UNIT/0.5 ML VIAL SQ SCH ×3 (05:44→21:54)
[2020-07-03 06:38] LABS: Estimated Average Glucose 117 mg/dl; Hemoglobin A1C 5.7 % (4.5-5.6)
[2020-07-03] MEDS: GABAPENTIN 300 MG CAP PO SCH ×3 (08:45→21:54)
[2020-07-03] MEDS: FOLIC ACID 1 MG TAB PO SCH (08:45)
[2020-07-03] MEDS: lisinopril 10 MG TAB PO SCH (08:45)
[2020-07-03] MEDS: SODIUM CHLORIDE 1 GM TABLET PO SCH ×2 (08:45→21:54)
[2020-07-03] MEDS: MULTIVITAMIN TAB PO SCH (08:45)
[2020-07-03] MEDS: CHOLECALCIFEROL 1,000 UNITS 25 MCG TAB PO SCH (08:46)
[2020-07-03] MEDS: FERROUS GLUCONATE 324 MG TAB PO SCH ×2 (08:46→17:40)
[2020-07-03] MEDS: ADVANCED PROBIOTIC 1250 MG CAPSULE PO SCH (08:46)
[2020-07-03] MEDS: THIAMINE HCL 100 MG TAB PO SCH (08:46)
[2020-07-03] MEDS: METOPROLOL SUCC 25MG EXT REL TAB PO SCH (10:10)
--- NOTE | 2020-07-03 11:02 | Orthopedic Progress Note ---
Date of Service July 03, 2020 Assessment & Plan (1) Gangrene of left foot: Will discuss with Dr Maldonado. If surgery indicated, will likely be Thursday of this week. Admission and Anticipated Discharge Date Admission Date: June 14, 2020 Subjective Pt seen today at request of Med Service. Pt having more pain in the left foot area that involves her great toe and medial aspect of the great toe/ 1st Met. Pt appears comfortable but states she's having more pain in the left foot starting at the midfoot region radiating down the great toe. No other complaints curre ntly. Physical Exam Physical Exam: No bandage noted on the necotic area. Not draining at this time. Erythema has resolved well since last seen. Necrotic area does not look any bigger but has darkened. Foul odor noted. More painful on palpation than before. Results & Data ([facility]) Vital Signs (Past 12 Hours) Vital Signs Temp Pulse Pulse Resp BP BP Pulse Ox 07/03/20 07:39 78 07/03/20 07:21 36.9 C 82 16 164/75 H 94 07/03/20 03:44 36.9 C 78 18 150/73 H 94 07/02/20 23:32 73 07/02/20 23:02 36.9 C 74 16 137/71 95
--- NOTE | 2020-07-03 11:13 | Hospitalist Progress Note ---
Date of Service July 03, 2020 Assessment & Plan (1) Sepsis: 2nd to left foot cellulitis, gangrene, osteomyelitis, and septic arthritis of first MTP joint. Ortho consult with Dr Maldonado much appreciated -on 06/17 s/p extensive surgery on L foot. Discussed with ortho today given her increased pain - may go back to the OR for further debridement/ amputation on Thursday. Echo without endocarditis. Blood cx's negative to date. Intra-op wound cx -- proteus with bacteroides. Appreciate [facility] consultation and recs. Continue IV ertapenam 1gm daily x 6 weeks started on 06/20/20. PICC line placed in right upper extremity 06/22 (2) Gangrene of left foot: See above in sepsis. LLE arterial duplex study without focal occlusion of any specific vessel; diffuse atherosclerosis noted. - Dr Maldonado - 06/17/20 s/p incision and Drainage abscess left first metatarsal phalangeal joint, irrigation and debridement plantar medial neuropathic ulcer first metatarsal phalangeal joint 4 cm x 3 cm x 0.4 cm, irrigation and debridement medial neuropathic ulcer first interphalangeal joint 12 mm x 14 mm x 3 mm, irrigation and debridement necrotic ulcers left great toe 2 separate sites including skin, subcutaneous tissue, fascia and periosteum, left foot tenosynovectomy septic flexor hallucis longus tendon Intra-op culture with pansensitive proteus & bacteroides continue Ertapenem for 6 weeks total LD 08/01/2020 appreciate ortho consult/assistance, may need further wound revision (3) Osteomyelitis: MRI left foot -- 1. Small focus of osteomyelitis within the distal medial aspect of the proximal phalanx of the left first toe. Additional sites of marrow edema within the left first metatarsal head, base of the proximal phalanx of the distal phalanx consistent with osteitis. 2. Left first metatarsophalangeal joint effusion with synovial enhancement. No associated bony destruction adjacent to the joint. This suggests synovitis and sterility cannot be assessed by MRI. 3. Wound along the plantar medial aspect of the left first metatarsophalangeal joint. Soft tissue edema consistent with cellulitis. s/p extensive surgery L foot by Dr Maldonado 06/17/20, await re evalation (4) Cellulitis of great toe of left foot: resolving after surgery, gangrene persists Post op as above Echo without obvious SBE. Blood cx's neg. Partial weight-bearing left foot only. may need wound care eval and some debridement, Dr Maldonado to re evaluate (5) Weakness of both legs: suspect 2nd to sepsis neuro exam wnl since admission improved strength since admission cont PT/OT will need rehab (6) Diabetes mellitus type 2, uncontrolled: remains on basal-bolus insulin had lows on 06/20 Pharmacy glycemic consult (7) Chronic alcohol use: no evidence of withdrawal at this time cont thiamine 200mg daily cont folate 1mg daily cont MVI (8) Diabetic neuropathy: Severe. started gabapentin 200mg TID. titrated up to 300mg TID on 06/23, continue this on discharge (9) Pulmonary nodules/lesions, multiple: Seen on CT chest earlier this fall. COVID was negative (antigen test) this admission and on past admission O2 sats stable in RA repeat COVID PCR negative as well needs f/u CT chest in 2-3 months (10) Hypomagnesemia: repleted and resolved (11) Hyponatremia: concern for siadh looks euvolemic during her stay cortisol wnl TSH minimally elevated but fT4 wnl place on sodium 1gm BID continue 1800cc fluid restriction - now with resolution of hyponatremia continue the above regimen on discharge (12) Acute hepatitis: LFTs are chronically elevated, but much worse at onset of this admission - now much improved, ALT with mild elevation INR was also worse at 1.6 and now improved to 1.2 Suspect Acute alcoholic hepatitis. HepC Ab 05/15 was negative. Patient was having diarrhea so lactulose was stopped (13) Coagulopathy: 2nd to acute hepatitis (suspected), possibly with nutritional component as patient had improvement with vitamin K administartion 1.6 INR at admission. s/p vitamin K with improved INR to 1.2. (14) Hypertension: Continue metoprolol Increase BETZAIDA to 20 mg daily Patient has been hypertensive, utilizing prn hydralazine (15) Acute metabolic encephalopathy: resolved was likely 2nd sepsis stop lactulose as she is having a lot of diarrhea (16) Anemia: s/p 1 unit prcs this admission fecal occult neg h/h acceptable since then - stable around 10 (17) Hyperkalemia: iatrogenic 2nd to K supplement and K-phos supplement both stopped (18) Shortness of breath: 07/02 - 2 view chest xray showing Interval progression of the pulmonary edema and small bilateral pleural effusions. Echo on 06/15 without reduced EF Patient has received quite a bit of IV fluid over her stay - possibly iatrogenic fluid overload Given 20 mg IV furosemide 07/02, today with resolution of sob. Encourage IS (19) DVT prophylaxis: heparin SC TID CM working on placement - [facility] Admission and Anticipated Discharge Date Admission Date: June 14, 2020 Subjective Ms. Marquez reports the pain in her surgical foot is increasing in pain. She reports that she is breathing more comfortably and no longer feel short of breath. Review of Systems Constitutional: no fever and no body aches Respiratory: no cough and no dyspnea Cardiovascular: no chest pain and no palpitations Gastrointestinal: no abdominal pain, no nausea and no vomiting Genitourinary: no dysuria and no urinary hesitancy Musculoskeletal: no back pain and no joint pain Integumentary: no rash Physical Exam Physical Exam: General: no distress Eyes: normal inspection, PERLL Respiratory: chest non tender, clear to auscultation, normal breath sounds, no respiratory distress, no accessory muscle use Cardiac: regular rate and rhythm, no rub or gallop, no murmur, no edema, no jvd GI/: active bowel sounds, no abd pain or tenderness, soft, non distended Extremities: normal range of motion, normal strength, non tender Neuro/Psych: alert and oriented x 3, normal mood and affect Skin: normal color, dry, left foot without erythema, has blackened eschar over medial foot, no drainage Results & Data Results & Data ([facility]) Vital Signs (Past 12 Hours) Vital Signs Temp Pulse Pulse Resp BP BP Pulse Ox 07/03/20 07:39 78 07/03/20 07:21 36.9 C 82 16 164/75 H 94 07/03/20 03:44 36.9 C 78 18 150/73 H 94 07/02/20 23:32 73 PG Care Time/CCT Total # of Minutes Spent Total Time Spent with Patient: Total time spent is greater than 50% in [facility] (as documented) at patient's floor/unit and/or counseling patient: Coding Level of Care Code 35195 Subseq Hosp Care Lvl 3 Diagnoses Sepsis A41.9 Gangrene of left foot I96 Osteomyelitis M86.9 Cellulitis of great toe of left foot L03.032 Weakness of both legs R29.898 Diabetes mellitus type 2, uncontrolled E11.65 Glycemic state: with hyperglycemia Chronic alcohol use Z72.89 Diabetic neuropathy E11.42 Diabetes mellitus type: type 2 Diabetes mellitus complication detail: diabetic polyneuropathy Pulmonary nodules/lesions, multiple R91.8 Hypomagnesemia E83.42 Hyponatremia E87.1 Acute hepatitis B17.9 Coagulopathy D68.9 Hypertension I10 Hypertension type: essential hypertension Acute metabolic encephalopathy G93.41 Anemia D64.9 Hyperkalemia E87.5 Shortness of breath R06.02 DVT prophylaxis Z29.9 (1) Diabetes mellitus type 2, uncontrolled Glycemic state: with hyperglycemia Qualified Code(s): E11.65 - Type 2 diabetes mellitus with hyperglycemia (2) Diabetic neuropathy Diabetes mellitus type: type 2 Diabetes mellitus complication detail: diabetic polyneuropathy Qualified Code(s): E11.42 - Type 2 diabetes mellitus with diabetic polyneuropathy (3) Hypertension Hypertension type: essential hypertension Qualified Code(s): I10 - Essential (primary) hypertension
[2020-07-03] MEDS ORDERED: ACETAMINOPHEN 325 MG TAB PO PRN (11:29)
--- NOTE | 2020-07-03 13:27 | Pharmacy Report ---
Glycemic Control Consultation - Date of Service July 03, 2020 - Scope Scope: Glycemic Pharmacist consulted for glycemic control and to write orders per [facility] inpatient glycemic control protocol. - Objective Weight: 72.6 kg Accuchecks BSG (last 24hrs): 07/02/20 07/02/20 07/02/20 16:33 20:04 23:47 POC Glucose 265 H 139 H 68 L* 07/03/20 07/03/20 07/03/20 00:03 03:45 07:33 POC Glucose 85 91 90 07/03/20 07/03/20 11:22 11:34 POC Glucose 159 H 159 H HbA1c: Hemoglobin A1c 5.7 % (4.5-5.6) H 07/03/20 05:54 - Recent Pertinent Medications Outpatient Anti-diabetic Regimen: * Amaryl 2 mg daily * Lantus 20 units HS * metformin 1000 mg BID * A1c = 5.7 % 07/03/20 The patient is currently receiving: * Basal insulin: Lantus 10 units SQ in the morning and 20 units in the evening * Correctional Insulin: Novolog Correction per scale ACHS Goal Range: Low 110 mg/dL - High 140 mg/dL Correction Factor: 15 mg/dL/unit * Prandial insulin: Per carb ratio of 1 unit per 6 grams CHO consumed * Oral Agents: Risk Factors for Insulin Resistance: * Infection: Invanz * Diet: T2DM - Assessment & Plan Assessment & Plan: ASSESSMENT: * Ms Marquez is a 59 y/o F with a PMH of T2DM well controlled on 2 oral agents and Lantus. Patient has typically been receiving ~30 units/day of Lantus and morning BSGs have been lower. Reduce Lantus to 25 units at bedtime. (remove Lantus 10 unit daily dose) * Prior to yesterday patient's BSGs had been relatively controlled (rarely BSG > 200 mg/dL). Monitor closely as continue the current Novolog parameters. Unclear why patient's BSGs were elevated yesterday. * Hold oral medications PLAN FOR INPATIENT GLYCEMIC CONTROL: * Holding outpatient oral diabetes medications * Basal insulin * Lantus 25 units SQ HS * Bolus insulin * NovoLog per scale ACHS or Q6hrs while NPO * Goal Range: Low 110 mg/dL - High 140 mg/dL * Correction Factor: 15 mg/dL/unit * Nutritional / Prandial insulin per carb ratio of 1 unit per 6 grams CHO consumed * Please note that the plan above was derived based on current level of insulin resistance and hospital stress. These recommendations are appropriate for inpatient admission only. Plan of care upon discharge will need to be reassessed to avoid potential outpatient hypo/hyperglycemia. Thank you.
[2020-07-03] MEDS ORDERED: INSULIN GLARGINE SOLOSTAR 100 UNITS/ML 3 ML PEN SC SCH (21:00)
[2020-07-03] MEDS: ERTAPENEM SODIUM 1,000 MG in SODIUM CHLORIDE 0.9% 50 ML IV SCH (21:51)
[2020-07-04] MEDS: HEPARIN SOD 5,000 UNIT/0.5 ML VIAL SQ SCH ×3 (05:56→21:25)
[2020-07-04 06:11] LABS: Hematocrit (blood only) 30.8 % (37-47); Mean Corpuscular Hemoglobin 33.1 pg (25-34); Mean Corpuscular Hgb Conc 32.5 g/dL (32-36); Mean Platelet Volume 10.5 fL (7.4-10.4); Platelet Count 344 K/uL (130-400); RDW Coefficient of Variation 15.8 % (11.5-14.5); RDW Standard Deviation 59.2 fL (36.4-46.3); Red Blood Count 3.02 M/uL (4.2-5.4); White Blood Count 8.63 K/uL (4.8-10.8)
[2020-07-04 06:35] LABS: BUN Creatinine Ratio 18.6 (10-20); Calcium 8.4 mg/dl (8.5-10.1); Creatinine Clr Calc Pharmacy 123.2 ml/min; Est GFR (African American) 122.8; Est GFR (Non-African American) 105.9; Potassium 3.8 mmol/L (3.5-5.1)
[2020-07-04] MEDS ORDERED: lisinopril 20 MG TAB PO SCH (09:00)
[2020-07-04] MEDS: THIAMINE HCL 100 MG TAB PO SCH (09:00)
[2020-07-04] MEDS: ADVANCED PROBIOTIC 1250 MG CAPSULE PO SCH (09:00)
[2020-07-04] MEDS: SODIUM CHLORIDE 1 GM TABLET PO SCH ×2 (09:00→21:27)
[2020-07-04] MEDS: MULTIVITAMIN TAB PO SCH (09:01)
[2020-07-04] MEDS: METOPROLOL SUCC 25MG EXT REL TAB PO SCH (09:01)
[2020-07-04] MEDS: FERROUS GLUCONATE 324 MG TAB PO SCH ×2 (09:01→17:39)
[2020-07-04] MEDS: GABAPENTIN 300 MG CAP PO SCH ×3 (09:01→21:28)
[2020-07-04] MEDS: FOLIC ACID 1 MG TAB PO SCH (09:02)
[2020-07-04] MEDS: CHOLECALCIFEROL 1,000 UNITS 25 MCG TAB PO SCH (09:02)
[2020-07-04] MEDS: INSULIN ASPART 100 UNITS/ML 3 ML PEN SC SCH ×4 (09:03→21:26)
[2020-07-04] MEDS ORDERED: FUROSEMIDE 40 MG in SYRINGE 0 ML IV ONE (11:15)
--- NOTE | 2020-07-04 11:59 | Hospitalist Progress Note ---
Date of Service July 04, 2020 Assessment & Plan (1) Sepsis: 2nd to left foot cellulitis, gangrene, osteomyelitis, and septic arthritis of first MTP joint. Ortho consult with Dr Maldonado much appreciated -on 06/17 s/p extensive surgery on L foot. Discussed with ortho today given her increased pain - plan for OR for further debridement/ amputation on Thursday. Echo without endocarditis. Blood cx's negative Intra-op wound cx -- proteus with bacteroides. Appreciate [facility] ID consultation and recs. Continue IV ertapenam 1gm daily x 6 weeks started on 06/20/20. PICC line placed in right upper extremity 06/22 (2) Gangrene of left foot: See above in sepsis. LLE arterial duplex study without focal occlusion of any specific vessel; diffuse atherosclerosis noted. - Dr Maldonado - 06/17/20 s/p incision and Drainage abscess left first metatarsal phalangeal joint, irrigation and debridement plantar medial neuropathic ulcer first metatarsal phalangeal joint 4 cm x 3 cm x 0.4 cm, irrigation and debridement medial neuropathic ulcer first interphalangeal joint 12 mm x 14 mm x 3 mm, irrigation and debridement necrotic ulcers left great toe 2 separate sites including skin, subcutaneous tissue, fascia and periosteum, left foot tenosynovectomy septic flexor hallucis longus tendon Intra-op culture with pansensitive proteus & bacteroides continue Ertapenem for 6 weeks total LD 08/01/2020 appreciate ortho consult/assistance (3) Osteomyelitis: MRI left foot -- 1. Small focus of osteomyelitis within the distal medial aspect of the proximal phalanx of the left first toe. Additional sites of marrow edema within the left first metatarsal head, base of the proximal phalanx of the distal phalanx consistent with osteitis. 2. Left first metatarsophalangeal joint effusion with synovial enhancement. No associated bony destruction adjacent to the joint. This suggests synovitis and sterility cannot be assessed by MRI. 3. Wound along the plantar medial aspect of the left first metatarsophalangeal joint. Soft tissue edema consistent with cellulitis. s/p extensive surgery L foot by Dr Maldonado 06/17/20 (4) Cellulitis of great toe of left foot: resolving after surgery, gangrene persists Post op as above Echo without obvious SBE. Blood cx's neg. Partial weight-bearing left foot only. (5) Weakness of both legs: suspect 2nd to sepsis neuro exam wnl since admission improved strength since admission cont PT/OT will need rehab (6) Diabetes mellitus type 2, uncontrolled: remains on basal-bolus insulin had lows on 06/20 Pharmacy glycemic consult (7) Chronic alcohol use: no evidence of withdrawal cont thiamine 200mg daily cont folate 1mg daily cont MVI (8) Diabetic neuropathy: Severe. started gabapentin 200mg TID. titrated up to 300mg TID on 06/23, continue this on discharge (9) Pulmonary nodules/lesions, multiple: Seen on CT chest earlier this fall. COVID was negative (antigen test) this admission and on past admission O2 sats stable in RA repeat COVID PCR negative as well needs f/u CT chest in 2-3 months (10) Hypomagnesemia: repleted and resolved (11) Hyponatremia: concern for siadh looks euvolemic during her stay cortisol wnl TSH minimally elevated but fT4 wnl place on sodium 1gm BID continue 1800cc fluid restriction - now with resolution of hyponatremia continue the above regimen on discharge (12) Acute hepatitis: LFTs are chronically elevated, but much worse at onset of this admission - now much improved, ALT with mild elevation INR was also worse at 1.6 and now improved to 1.2 Suspect Acute alcoholic hepatitis. HepC Ab 05/15 was negative. Patient was having diarrhea so lactulose was stopped (13) Coagulopathy: 2nd to acute hepatitis (suspected), possibly with nutritional component as patient had improvement with vitamin K administartion 1.6 INR at admission. s/p vitamin K with improved INR to 1.2. (14) Hypertension: Continue metoprolol Increased BETZAIDA to 20 mg daily 07/03, remains hypertensive today Patient has been hypertensive, utilizing prn hydralazine (15) Acute metabolic encephalopathy: resolved was likely 2nd sepsis stop lactulose as she is having a lot of diarrhea (16) Anemia: s/p 1 unit prcs this admission fecal occult neg h/h acceptable since then - stable around 10 (17) Hyperkalemia: iatrogenic 2nd to K supplement and K-phos supplement both stopped (18) Shortness of breath: 07/02 - 2 view chest xray showing Interval progression of the pulmonary edema and small bilateral pleural effusions. Echo on 06/15 without reduced EF Patient has received quite a bit of IV fluid over her stay - possibly iatrogenic fluid overload Given 20 mg IV furosemide 07/02, will give 40 mg IV today as she is again sob and didn't not have significant output with 20 mg dosing. Encourage IS (19) DVT prophylaxis: heparin SC TID CM working on placement - has auth for [facility] but will need to wait until after repeat surgery on Thursday Transfer off tele - has been SR on the monitor (20) Frequent PVCs: 07/03 - PVCs, intermittent bige, appears to have resolved overnight and today. Asymptomatic Admission and Anticipated Discharge Date Admission Date: June 14, 2020 Supervising Physician Co-Signing Physician Notes chart reviewed and case d/w S Alexander NDIAYE. agree w above Subjective Ms. Marquez is feeling short of breath again today, no cough, no chest pain. Her foot pain is somewhat better than yesterday but still bothering her. Review of Systems Constitutional: no fever, no chills and no body aches Respiratory: as per Subjective / HPI Cardiovascular: no chest pain, no palpitations and no lightheadedness Gastrointestinal: no abdominal pain, no nausea and no vomiting Genitourinary: no dysuria and no urinary hesitancy Musculoskeletal: no back pain and no joint pain Integumentary: no rash Physical Exam Physical Exam: General: no distress Eyes: normal inspection, PERLL Respiratory: chest non tender, clear to auscultation, normal breath sounds, no respiratory distress, no accessory muscle use Cardiac: regular rate and rhythm, no rub or gallop, no murmur, no edema, no jvd GI/: active bowel sounds, no abd pain or tenderness, soft, non distended Extremities: normal range of motion, normal strength, non tender Neuro/Psych: alert and oriented x 3, normal mood and affect Skin: normal color, dry, left foot wound without erythema, black eschar, no drainage Results & Data Results & Data ([facility]) Vital Signs (Past 12 Hours) Vital Signs Temp Pulse Pulse Pulse Resp BP BP 07/04/20 11:28 36.8 C 62 16 175/76 H 07/04/20 07:55 37.0 C 62 16 180/75 H 07/04/20 07:08 63 07/04/20 04:00 36.7 C 74 18 183/72 H 07/04/20 00:00 71 Pulse Ox 07/04/20 11:28 96 07/04/20 07:55 92 07/04/20 07:08 07/04/20 04:00 07/04/20 00:00 PG Care Time/CCT Total # of Minutes Spent Total Time Spent with Patient: Total time spent is greater than 50% in coordination of care (as documented) at patient's floor/unit and/or counseling patient: Coding Level of Care Code 25988 Subseq Hosp Care Lvl 2 Diagnoses Sepsis A41.9 Gangrene of left foot I96 Osteomyelitis M86.9 Cellulitis of great toe of left foot L03.032 Weakness of both legs R29.898 Diabetes mellitus type 2, uncontrolled E11.65 Glycemic state: with hyperglycemia Chronic alcohol use Z72.89 Diabetic neuropathy E11.42 Diabetes mellitus complication detail: diabetic polyneuropathy Diabetes mellitus type: type 2 Pulmonary nodules/lesions, multiple R91.8 Hypomagnesemia E83.42 Hyponatremia E87.1 Acute hepatitis B17.9 Coagulopathy D68.9 Hypertension I10 Hypertension type: essential hypertension Acute metabolic encephalopathy G93.41 Anemia D64.9 Hyperkalemia E87.5 Shortness of breath R06.02 DVT prophylaxis Z29.9 Frequent PVCs I49.3 (1) Diabetic neuropathy Diabetes mellitus complication detail: diabetic polyneuropathy Diabetes mellitus type: type 2 Qualified Code(s): E11.42 - Type 2 diabetes mellitus with diabetic polyneuropathy (2) Diabetes mellitus type 2, uncontrolled Glycemic state: with hyperglycemia Qualified Code(s): E11.65 - Type 2 diabetes mellitus with hyperglycemia (3) Hypertension Hypertension type: essential hypertension Qualified Code(s): I10 - Essential (primary) hypertension
[2020-07-04] MEDS ORDERED: INSULIN GLARGINE SOLOSTAR 100 UNITS/ML 3 ML PEN SC SCH (21:00)
[2020-07-04] MEDS: ERTAPENEM SODIUM 1,000 MG in SODIUM CHLORIDE 0.9% 50 ML IV SCH (21:20)
[2020-07-05] MEDS: HEPARIN SOD 5,000 UNIT/0.5 ML VIAL SQ SCH ×3 (06:12→21:10)
[2020-07-05 06:25] LABS: Hematocrit (blood only) 30.9 % (37-47); Mean Corpuscular Hemoglobin 33.1 pg (25-34); Mean Corpuscular Hgb Conc 32.4 g/dL (32-36); Mean Corpuscular Volume 102.3 fL (80-100); Mean Platelet Volume 10.9 fL (7.4-10.4); Platelet Count 361 K/uL (130-400); RDW Coefficient of Variation 15.7 % (11.5-14.5); RDW Standard Deviation 58.6 fL (36.4-46.3); Red Blood Count 3.02 M/uL (4.2-5.4); White Blood Count 8.97 K/uL (4.8-10.8)
[2020-07-05 06:55] LABS: BUN Creatinine Ratio 17.8 (10-20); Calcium 8.5 mg/dl (8.5-10.1); Creatinine Clr Calc Pharmacy 133.9 ml/min; Est GFR (African American) 126.2; Est GFR (Non-African American) 108.9; Potassium 3.4 mmol/L (3.5-5.1)
[2020-07-05] MEDS: CARBOHYDRATES FOR HYPOGLYCEMIA PO PRN (07:00)
[2020-07-05] MEDS: CHOLECALCIFEROL 1,000 UNITS 25 MCG TAB PO SCH (08:22)
[2020-07-05] MEDS: GABAPENTIN 300 MG CAP PO SCH ×3 (08:22→21:09)
[2020-07-05] MEDS: SODIUM CHLORIDE 1 GM TABLET PO SCH ×2 (08:22→21:09)
[2020-07-05] MEDS: ADVANCED PROBIOTIC 1250 MG CAPSULE PO SCH (08:23)
[2020-07-05] MEDS: METOPROLOL SUCC 25MG EXT REL TAB PO SCH (08:23)
[2020-07-05] MEDS: THIAMINE HCL 100 MG TAB PO SCH (08:23)
[2020-07-05] MEDS: MULTIVITAMIN TAB PO SCH (08:23)
[2020-07-05] MEDS: FOLIC ACID 1 MG TAB PO SCH (08:24)
[2020-07-05] MEDS: FERROUS GLUCONATE 324 MG TAB PO SCH ×2 (08:25→17:41)
[2020-07-05] MEDS: INSULIN ASPART 100 UNITS/ML 3 ML PEN SC SCH ×4 (08:29→21:08)
[2020-07-05] MEDS ORDERED: lisinopril 10 MG TAB PO SCH (09:00)
[2020-07-05] MEDS ORDERED: POTASSIUM CHLORIDE CRTAB 20 MEQ TABCR PO ONE (12:15)
[2020-07-05] MEDS ORDERED: FUROSEMIDE 40 MG in SYRINGE 0 ML IV ONE (12:15)
[2020-07-05] MEDS ORDERED: lisinopril 10 MG TAB PO ONE (12:33)
[2020-07-05] MEDS: hydrALAZINE HCL 20 MG/ML VIAL IV PRN (14:23)
--- NOTE | 2020-07-05 15:14 | Hospitalist Progress Note ---
Date of Service July 05, 2020 Assessment & Plan (1) Sepsis: 2nd to left foot cellulitis, gangrene, osteomyelitis, and septic arthritis of first MTP joint. Ortho consult with Dr Maldonado much appreciated -on 06/17 s/p extensive surgery on L foot - plan for OR for further debridement/ amputation on Thursday. Echo without endocarditis. Blood cx's negative Intra-op wound cx -- proteus with bacteroides. Appreciate [facility] ID consultation and recs. Continue IV ertapenam 1gm daily x 6 weeks started on 06/20/20. PICC line placed in right upper extremity 06/22 to OR again tomorrow. She will receive another dose of Lasix today to improve her orthopnea and blood pressure but she is nearly euvolemic and is maintaining saturations in the mid 90s on room air. She has no chest pain. Will supplement her potassium and recheck electrolytes in the morning. Will also recheck INR, last INR was checked on 07/02 and was 1.2. Will make her npo after midnight. Medically acceptable risk for surgery (2) Gangrene of left foot: See above in sepsis. LLE arterial duplex study without focal occlusion of any specific vessel; diffuse atherosclerosis noted. - Dr Maldonado - 06/17/20 s/p incision and Drainage abscess left first metatarsal phalangeal joint, irrigation and debridement plantar medial neuropathic ulcer first metatarsal phalangeal joint 4 cm x 3 cm x 0.4 cm, irrigation and debridement medial neuropathic ulcer first interphalangeal joint 12 mm x 14 mm x 3 mm, irrigation and debridement necrotic ulcers left great toe 2 separate sites including skin, subcutaneous tissue, fascia and periosteum, left foot tenosynovectomy septic flexor hallucis longus tendon Intra-op culture with pansensitive proteus & bacteroides continue Ertapenem for 6 weeks total LD 08/01/2020 appreciate ortho consult/assistance (3) Osteomyelitis: MRI left foot -- 1. Small focus of osteomyelitis within the distal medial aspect of the proximal phalanx of the left first toe. Additional sites of marrow edema within the left first metatarsal head, base of the proximal phalanx of the distal phalanx consistent with osteitis. 2. Left first metatarsophalangeal joint effusion with synovial enhancement. No associated bony destruction adjacent to the joint. This suggests synovitis and sterility cannot be assessed by MRI. 3. Wound along the plantar medial aspect of the left first metatarsophalangeal joint. Soft tissue edema consistent with cellulitis. s/p extensive surgery L foot by Dr Maldonado 06/17/20 (4) Cellulitis of great toe of left foot: resolving after surgery, gangrene persists Post op as above Echo without obvious SBE. Blood cx's neg. Partial weight-bearing left foot only. (5) Shortness of breath: 07/02 - 2 view chest xray showing Interval progression of the pulmonary edema and small bilateral pleural effusions. Echo on 06/15 without reduced EF Patient has received quite a bit of IV fluid over her stay - possibly iatrogenic fluid overload vs diastolic chf Will give 40 mg IV lasix again today for complaints of orthopnea but she is likely near euvolemic given her breath sounds are not adventitious, she is sa turating 96% on room air and she did not feel sob with physical therapy. She has denied any chest pain. Encourage IS (6) Weakness of both legs: suspect 2nd to sepsis neuro exam wnl since admission improved strength since admission cont PT/OT will need rehab (7) Diabetes mellitus type 2, uncontrolled: remains on basal-bolus insulin had lows on 06/20 Pharmacy glycemic consult - hypoglycemic today (8) Chronic alcohol use: no evidence of withdrawal cont thiamine 200mg daily cont folate 1mg daily cont MVI (9) Diabetic neuropathy: Severe. started gabapentin 200mg TID. titrated up to 300mg TID on 06/23, continue this on discharge (10) Pulmonary nodules/lesions, multiple: Seen on CT chest earlier this fall. COVID was negative (antigen test) this admission and on past admission O2 sats stable in RA repeat COVID PCR negative as well needs f/u CT chest in 2-3 months (11) Hypomagnesemia: repleted and resolved (12) Hyponatremia: concern for siadh cortisol wnl TSH minimally elevated but fT4 wnl place on sodium 1gm BID - given fluid retention may need to reduce this to 1 gm per day - will wait until after surgery tomorrow to adjust continue 1800cc fluid restriction - now with resolution of hyponatremia continue the above regimen on discharge (13) Acute hepatitis: LFTs are chronically elevated, but much worse at onset of this admission - now much improved, ALT with mild elevation INR was also worse at 1.6 and now improved to 1.2 Suspect Acute alcoholic hepatitis. HepC Ab 05/15 was negative. Patient was having diarrhea so lactulose was stopped (14) Coagulopathy: 2nd to acute hepatitis (suspected), possibly with nutritional component as patient had improvement with vitamin K administartion 1.6 INR at admission. s/p vitamin K with improved INR to 1.2. (15) Hypertension: Continue metoprolol Increased BETZAIDA to 30 mg daily 07/05, remains hypertensive today - will increase to 40 for tomorrow May need to add calcium channel ryan like amlodipine after surgery Patient has been hypertensive, utilizing prn hydralazine. She has not had any headache, chest pain, visual changes, nose bleeds or s/s of end organ damage (16) Acute metabolic encephalopathy: resolved was likely 2nd sepsis stopped lactulose as she is having a lot of diarrhea (17) Anemia: s/p 1 unit prcs this admission fecal occult neg h/h acceptable since then - stable around 10 (18) Hyperkalemia: iatrogenic 2nd to K supplement and K-phos supplement both stopped hypokalemic today - given 40 mEq supplementation as she will have further furosemide today (19) Frequent PVCs: 07/03 - PVCs, intermittent bigem, appears to have resolved. Asymptomatic (20) DVT prophylaxis: heparin SC TID CM working on placement - has auth for [facility] but will need to wait until after repeat surgery on Thursday Admission and Anticipated Discharge Date Admission Date: June 14, 2020 Supervising Physician Co-Signing Physician Notes chart reviewed and case d/w S Alexander NDIAYE. agree w above Subjective Ms. Marquez reports orthopnea but otherwise sob has improved, no cough. She did not get sob with physical therapy. She is saturating 96% on RA. Her foot is not as painful today Review of Systems Constitutional: no fever, no chills and no body aches Respiratory: as per Subjective / HPI Cardiovascular: + orthopnea; no chest pain and no palpitations Gastrointestinal: no abdominal pain, no nausea and no vomiting Genitourinary: no dysuria and no urinary hesitancy Musculoskeletal: no back pain and no joint pain Integumentary: no rash Physical Exam Physical Exam: General: no distress Eyes: normal inspection, PERLL Respiratory: chest non tender, clear to auscultation, normal breath sounds, no respiratory distress, no accessory muscle use Cardiac: regular rate and rhythm, no rub or gallop, systolic murmur, no edema, no jvd GI/: active bowel sounds, no abd pain or tenderness, soft, non distended Extremities: normal range of motion, normal strength, non tender Neuro/Psych: alert and oriented x 3, normal mood and affect Skin: normal color, dry Results & Data Results & Data ([facility]) Vital Signs (Past 12 Hours) Vital Signs Temp Pulse Resp BP Pulse Ox 07/05/20 14:59 37.0 C 57 L 20 198/79 H 96 07/05/20 08:16 36.5 C 61 20 179/79 H 95 PG Care Time/CCT Total # of Minutes Spent Total Time Spent with Patient: Total time spent is greater than 50% in coordination of care (as documented) at patient's floor/unit and/or counseling patient: Coding Level of Care Code 05001 Subseq Hosp Care Lvl 3 Diagnoses Sepsis A41.9 Gangrene of left foot I96 Osteomyelitis M86.9 Cellulitis of great toe of left foot L03.032 Shortness of breath R06.02 Weakness of both legs R29.898 Diabetes mellitus type 2, uncontrolled E11.65 Glycemic state: with hyperglycemia Chronic alcohol use Z72.89 Diabetic neuropathy E11.42 Diabetes mellitus complication detail: diabetic polyneuropathy Diabetes mellitus type: type 2 Pulmonary nodules/lesions, multiple R91.8 Hypomagnesemia E83.42 Hyponatremia E87.1 Acute hepatitis B17.9 Coagulopathy D68.9 Hypertension I10 Hypertension type: essential hypertension Acute metabolic encephalopathy G93.41 Anemia D64.9 Hyperkalemia E87.5 Frequent PVCs I49.3 DVT prophylaxis Z29.9 (1) Diabetic neuropathy Diabetes mellitus complication detail: diabetic polyneuropathy Diabetes mellitus type: type 2 Qualified Code(s): E11.42 - Type 2 diabetes mellitus with diabetic polyneuropathy (2) Diabetes mellitus type 2, uncontrolled Glycemic state: with hyperglycemia Qualified Code(s): E11.65 - Type 2 diabetes mellitus with hyperglycemia (3) Hypertension Hypertension type: essential hypertension Qualified Code(s): I10 - Essential (primary) hypertension
--- NOTE | 2020-07-05 15:33 | Pharmacy Report ---
Pharmacy Glycemic Short Note 2 - Date of Service July 05, 2020 - Glycemic Short BSG Results (Last 24 hours): 07/04/20 07/04/20 07/05/20 16:36 19:36 05:44 Glucose 48 L* POC Glucose 134 H 191 H 07/05/20 07/05/20 07/05/20 06:57 06:59 07:20 Glucose POC Glucose 67 L* 70 82 07/05/20 07/05/20 07:38 11:16 Glucose POC Glucose 96 116 H OUTPATIENT ANTIDIABETIC REGIMEN: * Amaryl 2 mg daily * Lantus 20 units HS * metformin 1000 mg BID * A1c = 5.7 % 07/03/20 ASSESSMENT: * Patient received total of 48 units of insulin yesterday, of which 22 units was basal. * Fasting BSG was low this AM at 48 mg/dl. Lantus dose for HS was reduced to 15 units. * Post-prandial BSG have also been within or near goal. Loosened CR and goal range for Novolog with breakfast today to prevent hypoglycemia. PLAN FOR INPATIENT GLYCEMIC CONTROL: * Hold outpatient oral diabetes medications * Basal insulin: reduced * Lantus 15 units SQ HS * Bolus insulin: loosened CR and goal range * NovoLog per scale ACHS or Q6hrs while NPO * Goal Range: Low 100 mg/dL - High 140 mg/dL * Correction Factor: 15 mg/dL/unit * Nutritional / Prandial insulin per carb ratio of 1 unit per 8 grams CHO consumed RECOMMENDATION FOR DISCHARGE: * Patient's HbA1C is well controlled as an outpatient and is actually below goal for her. * Recommend following BSGs as an outpatient to determine if patient is having hypoglycemia as an outpatient. * Would not be unreasonable to d/c Amaryl as it has an increased risk of hypoglycemia when paired with insulin.
[2020-07-05] MEDS ORDERED: INSULIN GLARGINE SOLOSTAR 100 UNITS/ML 3 ML PEN SC SCH (21:00)
[2020-07-05] MEDS: ERTAPENEM SODIUM 1,000 MG in SODIUM CHLORIDE 0.9% 50 ML IV SCH (21:12)
[2020-07-06 07:38] LABS: INR 1.2 (0.9-1.1); Prothrombin Time 12.5 Seconds (9.0-12.0)
[2020-07-06 07:46] LABS: Basophils # (auto) 0.03 K/uL (0-0.2); Basophils % (auto) 0.4 %; Eosinophils # (auto) 0.12 K/uL (0-0.5); Eosinophils % (auto) 1.5 %; Hemoglobin 10.1 g/dL (12.0-16.0); Immature Granulocytes # (auto) 0.01 K/uL (0.00-0.02); Immature Granulocytes % (auto) 0.1 %; Lymphocytes # (auto) 1.51 K/uL (1.2-3.4); Lymphocytes % (auto) 18.9 %; Mean Corpuscular Hemoglobin 33.1 pg (25-34); Mean Corpuscular Hgb Conc 32.6 g/dL (32-36); Mean Corpuscular Volume 101.6 fL (80-100); Mean Platelet Volume 10.9 fL (7.4-10.4); Monocytes # (auto) 0.86 K/uL (0.11-0.59); Monocytes % (auto) 10.8 %; Neutrophils # (auto) 5.44 K/uL (1.4-6.5); Neutrophils % (auto) 68.3 %; Platelet Count 348 K/uL (130-400); RDW Coefficient of Variation 15.6 % (11.5-14.5); RDW Standard Deviation 58.2 fL (36.4-46.3); Red Blood Count 3.05 M/uL (4.2-5.4); White Blood Count 7.97 K/uL (4.8-10.8)
[2020-07-06 07:53] LABS: Albumin Globulin Ratio 0.5 (0.9-2); Albumin Level 2.2 gm/dl (3.4-5.0); BUN Creatinine Ratio 18.1 (10-20); Bilirubin,Total 0.5 mg/dl (0.2-1); Calcium 8.6 mg/dl (8.5-10.1); Creatinine Clr Calc Pharmacy 123.2 ml/min; Est GFR (African American) 122.8; Est GFR (Non-African American) 105.9; Globulin 4.4 gm/dl (2.5-4.0); Total Protein 6.6 gm/dl (6.4-8.2)
[2020-07-06] MEDS: INSULIN ASPART 100 UNITS/ML 3 ML PEN SC SCH ×4 (09:43→21:42)
[2020-07-06] MEDS: MULTIVITAMIN TAB PO SCH (09:44)
[2020-07-06] MEDS: FOLIC ACID 1 MG TAB PO SCH (09:44)
[2020-07-06] MEDS: ADVANCED PROBIOTIC 1250 MG CAPSULE PO SCH (09:44)
[2020-07-06] MEDS: GABAPENTIN 300 MG CAP PO SCH ×3 (09:44→21:10)
[2020-07-06] MEDS: SODIUM CHLORIDE 1 GM TABLET PO SCH ×2 (09:44→21:09)
[2020-07-06] MEDS: FERROUS GLUCONATE 324 MG TAB PO SCH ×2 (09:44→16:48)
[2020-07-06] MEDS: THIAMINE HCL 100 MG TAB PO SCH (09:45)
[2020-07-06] MEDS: lisinopril 40 MG TAB PO SCH (09:45)
[2020-07-06] MEDS: CHOLECALCIFEROL 1,000 UNITS 25 MCG TAB PO SCH (09:45)
[2020-07-06] MEDS: METOPROLOL SUCC 25MG EXT REL TAB PO SCH (09:46)
--- NOTE | 2020-07-06 11:07 | Hospitalist Progress Note ---
Date of Service July 06, 2020 Assessment & Plan (1) Sepsis: 2nd to left foot cellulitis, gangrene, osteomyelitis, and septic arthritis of first MTP joint. Ortho consult with Dr Maldonado much appreciated -on 06/17 s/p extensive surgery on L foot - plan for OR for further debridement/ amputation 07/06. Echo without endocarditis. Blood cx's negative Intra-op wound cx -- proteus with bacteroides. Appreciate [facility] ID consultation and recs. Continue IV ertapenam 1gm daily x 6 weeks started on 06/20/20. PICC line placed in right upper extremity 06/22 (2) Gangrene of left foot: See above in sepsis. LLE arterial duplex study without focal occlusion of any specific vessel; diffuse atherosclerosis noted. - Dr Maldonado - 06/17/20 s/p incision and Drainage abscess left first metatarsal phalangeal joint, irrigation and debridement plantar medial neuropathic ulcer first metatarsal phalangeal joint 4 cm x 3 cm x 0.4 cm, irrigation and debridement medial neuropathic ulcer first interphalangeal joint 12 mm x 14 mm x 3 mm, irrigation and debridement necrotic ulcers left great toe 2 separate sites including skin, subcutaneous tissue, fascia and periosteum, left foot tenosynovectomy septic flexor hallucis longus tendon Intra-op culture with pansensitive proteus & bacteroides continue Ertapenem for 6 weeks total LD 08/01/2020 appreciate ortho consult/assistance (3) Osteomyelitis: MRI left foot -- 1. Small focus of osteomyelitis within the distal medial aspect of the proximal phalanx of the left first toe. Additional sites of marrow edema within the left first metatarsal head, base of the proximal phalanx of the distal phalanx consistent with osteitis. 2. Left first metatarsophalangeal joint effusion with synovial enhancement. No associated bony destruction adjacent to the joint. This suggests synovitis and sterility cannot be assessed by MRI. 3. Wound along the plantar medial aspect of the left first metatarsophalangeal joint. Soft tissue edema consistent with cellulitis. s/p extensive surgery L foot by Dr Maldonado 06/17/20 (4) Cellulitis of great toe of left foot: resolving after surgery, gangrene persists Post op as above Echo without obvious SBE. Blood cx's neg. Partial weight-bearing left foot only. (5) Weakness of both legs: suspect 2nd to sepsis neuro exam wnl since admission improved strength since admission cont PT/OT will need rehab (6) Diabetes mellitus type 2, uncontrolled: remains on basal-bolus insulin had lows on 06/20 Pharmacy glycemic consult - hypoglycemic again today Per pharmacy dc recs: Patient's HbA1C is well controlled as an outpatient and is actually below goal for her. Recommend following BSGs as an outpatient to determine if patient is having hypoglycemia as an outpatient. Would not be unreasonable to d/c Amaryl as it has an increased risk of hypoglycemia when paired with insulin. (7) Chronic alcohol use: no evidence of withdrawal cont thiamine 200mg daily cont folate 1mg daily cont MVI (8) Diabetic neuropathy: Severe. started gabapentin 200mg TID. titrated up to 300mg TID on 06/23, continue this on discharge (9) Pulmonary nodules/lesions, multiple: Seen on CT chest earlier this fall. COVID was negative (antigen test) this admission and on past admission O2 sats stable in RA repeat COVID PCR negative as well needs f/u CT chest in 2-3 months (10) Hypomagnesemia: repleted and resolved (11) Hyponatremia: concern for siadh cortisol wnl TSH minimally elevated but fT4 wnl place on sodium 1gm BID - given fluid retention may need to reduce this to 1 gm per day - will wait until after surgery tomorrow to adjust continue 1800cc fluid restriction - now with resolution of hyponatremia continue the above regimen on discharge (12) Acute hepatitis: LFTs are chronically elevated, but much worse at onset of this admission - now much improved, ALT with mild elevation INR was also worse at 1.6 and now improved to 1.2 Suspect Acute alcoholic hepatitis. HepC Ab 05/15 was negative. Patient was having diarrhea so lactulose was stopped (13) Coagulopathy: 2nd to acute hepatitis (suspected), possibly with nutritional component as patient had improvement with vitamin K administartion 1.6 INR at admission. s/p vitamin K with improved INR to 1.2. (14) Hypertension: Continue metoprolol Increased BETZAIDA to 30 mg daily 07/05, remains hypertensive today - will increase to 40 for tomorrow May need to add calcium channel ryan like amlodipine after surgery Patient has been hypertensive, utilizing prn hydralazine. She has not had any headache, chest pain, visual changes, nose bleeds or s/s of end organ damage (15) Acute metabolic encephalopathy: resolved was likely 2nd sepsis stopped lactulose as she is having a lot of diarrhea (16) Anemia: s/p 1 unit prcs this admission fecal occult neg h/h acceptable since then - stable around 10 (17) Hyperkalemia: iatrogenic 2nd to K supplement and K-phos supplement both stopped hypokalemic today - given 40 mEq supplementation as she will have further furosemide today (18) Shortness of breath: Resolved 07/02 - 2 view chest xray showing Interval progression of the pulmonary edema and small bilateral pleural effusions. Echo on 06/15 without reduced EF Patient has received quite a bit of IV fluid over her stay - possibly iatrogenic fluid overload vs diastolic chf Diuresed with IV furosemide x 3 days - felling better today, saturating 98% on RA Encourage IS (19) DVT prophylaxis: heparin SC TID - on hold for surgery CM working on placement - has auth for [facility] but will need to wait until after repeat surgery on Thursday (20) Frequent PVCs: 07/03 - PVCs, intermittent bigem, appears to have resolved. Asymptomatic Admission and Anticipated Discharge Date Admission Date: June 14, 2020 Supervising Physician Co-Signing Physician Notes chart reviewed and case d/w S Alexander NDIAYE. agree w above Subjective Ms. Marquez is feeling much better breathing harrison, no sob, able to lay back without orthopnea. She has no complaints and is anxious to get her surgery done Review of Systems Constitutional: no fever, no chills and no body aches Respiratory: as per Subjective / HPI; no cough Cardiovascular: no chest pain, no dyspnea on exertion and no palpitations Gastrointestinal: no abdominal pain and no early satiety Genitourinary: no dysuria and no urinary hesitancy Musculoskeletal: no back pain and no joint pain Integumentary: no rash Physical Exam Physical Exam: General: no distress Eyes: normal inspection, PERLL Respiratory: chest non tender, clear to auscultation, normal breath sounds, no respiratory distress, no accessory muscle use Cardiac: regular rate and rhythm, no rub or gallop, systolic murmur, no edema, no jvd GI/: active bowel sounds, no abd pain or tenderness, soft, non distended Extremities: normal range of motion, normal strength, non tender Neuro/Psych: alert and oriented x 3, normal mood and affect Skin: normal color, dry Results & Data Results & Data ([facility]) Vital Signs (Past 12 Hours) Vital Signs Temp Pulse Pulse Resp BP Pulse Ox 07/06/20 07:48 36.6 C 62 20 173/76 H 98 07/05/20 23:14 37.1 C 60 18 156/69 H 93 PG Care Time/CCT Total # of Minutes Spent Total Time Spent with Patient: Total time spent is greater than 50% in coordination of care (as documented) at patient's floor/unit and/or counseling patient: Coding Level of Care Code 30689 Subseq Hosp Care Lvl 2 Diagnoses Sepsis A41.9 Gangrene of left foot I96 Osteomyelitis M86.9 Cellulitis of great toe of left foot L03.032 Weakness of both legs R29.898 Diabetes mellitus type 2, uncontrolled E11.65 Glycemic state: with hyperglycemia Chronic alcohol use Z72.89 Diabetic neuropathy E11.42 Diabetes mellitus complication detail: diabetic polyneuropathy Diabetes mellitus type: type 2 Pulmonary nodules/lesions, multiple R91.8 Hypomagnesemia E83.42 Hyponatremia E87.1 Acute hepatitis B17.9 Coagulopathy D68.9 Hypertension I10 Hypertension type: essential hypertension Acute metabolic encephalopathy G93.41 Anemia D64.9 Hyperkalemia E87.5 Shortness of breath R06.02 DVT prophylaxis Z29.9 Frequent PVCs I49.3 (1) Diabetic neuropathy Diabetes mellitus complication detail: diabetic polyneuropathy Diabetes mellitus type: type 2 Qualified Code(s): E11.42 - Type 2 diabetes mellitus with diabetic polyneuropathy (2) Diabetes mellitus type 2, uncontrolled Glycemic state: with hyperglycemia Qualified Code(s): E11.65 - Type 2 diabetes mellitus with hyperglycemia (3) Hypertension Hypertension type: essential hypertension Qualified Code(s): I10 - Essential (primary) hypertension
[2020-07-06] MEDS ORDERED: ONDANSETRON INJ 2 MG/ML 2 ML VIAL ONE (11:42)
[2020-07-06] MEDS ORDERED: fentaNYL citrate 100 MCG/2 ML VIAL ONE (11:42)
[2020-07-06] MEDS ORDERED: PROPOFOL IV EMULSION 10 MG/ML 20 ML VIAL IV ONE (11:42)
[2020-07-06] MEDS ORDERED: LIDOCAINE HCL 2% 2 ML VIAL/AMP(20MG/ML) INFIL ONE (11:42)
[2020-07-06] MEDS ORDERED: MIDAZOLAM HCL 1 MG/ML 2ML VIAL ONE (11:42)
--- NOTE | 2020-07-06 12:51 | History & Physical Bridge Note ---
Date of Service July 06, 2020 History & Physical Bridge Note I have examined the patient, reviewed the History & Physical and in the interval since the performance of the History & Physical I have noted the following changes of clinical significance: Will require left foot extensive irrigation and debridement great toe/ first ray.
[2020-07-06] MEDS ORDERED: BUPIVACAINE/EPINEPHRINE 0.5% MPF 1:200,000 30 ML VIAL ONE (13:02)
[2020-07-06] MEDS ORDERED: BACITRACIN INJ 50,000 UNIT VIAL ONE (13:02)
[2020-07-06] MEDS ORDERED: fentaNYL citrate 100 MCG/2 ML VIAL IV PRN (13:09)
[2020-07-06] MEDS ORDERED: ATROPINE SULFATE 0.1 MG/ML 10ML SYR IV PRN (13:09)
[2020-07-06] MEDS ORDERED: ONDANSETRON INJ 2 MG/ML 2 ML VIAL IV PRN ×2 (13:09→14:54)
[2020-07-06] MEDS ORDERED: ePHEDrine sulfate 50 MG/ML AMP IV PRN (13:09)
--- NOTE | 2020-07-06 13:09 | Anesthesiology Consultation ---
Date of Service July 06, 2020 Assessment & Plan (1) Encounter for pre-operative examination: Chart Review Chart Review: Acceptable Risk for Surgery and Patient NOT seen in Pre Admission Testing Consults Requested none ASA ASA3 Proposed Anesthesia Anesthesia Type: General Risk / Benefits Reviewed With: PT / POA / Parent / Guardian, Accepts Plan and Informed Consent Obtained History Surgery Operation Date: 06/17/20 12:00 Proposed Procedures p Incision and Drainage Extremity(Left) - Alli Maldonado DO Operation Date: 06/28/20 13:50 Proposed Procedures p Right Great Toe Incision and Drainge, Possible Toe Amputation, Possible 1st Metatarsal Amputation - Alvarez Man M.D. Operation Date: 07/06/20 11:20 Proposed Procedures p Right Great Toe Incision and Drainage, - Alli Maldonado DO s Possible 1st Ray Resection - Alli Maldonado DO Height/Weight Height: 5 ft 6 in Weight: 72.1 kg Allergies Allergy/AdvReac Type Severity Reaction Status Date / Time No Known Allergies Allergy Verified 06/14/20 15:58 Medications Home Medications Medication Instructions Recorded Confirmed Last Taken metoprolol succinate 25 mg PO DAILY #30 tab 05/11/20 06/14/20 Unknown insulin glargine [Lantus U-100 20 unit SUBCUT HS 05/17/20 06/14/20 Unknown Insulin] metformin 1,000 mg PO BIDM 05/17/20 06/14/20 Unknown cholecalciferol (vitamin D3) 2,000 unit PO DAILY 06/14/20 06/14/20 Unknown [Vitamin D3] glimepiride 2 mg PO QAM 06/14/20 06/14/20 Unknown lisinopril 10 mg PO DAILY 06/14/20 06/14/20 Unknown loperamide See Rx Instructions .ROUTE 06/14/20 06/14/20 Unknown .COMPLEX PRN MDD 16 MG/24 HOURS Active Medications Generic Name Dose Route Start Last Admin Trade Name Freq PRN Reason Stop Dose Admin Ferrous Gluconate 324 mg 06/17/20 17:00 07/06/20 09:44 Ferrous Gluconate 324 Mg Tab PO 07/17/20 16:59 Not Given BIDM [facility] Folic Acid 1 mg 06/21/20 09:15 07/06/20 09:44 Folic Acid 1 Mg Tab PO 07/21/20 09:14 Not Given QAM MARYBETH Gabapentin 300 mg 06/23/20 14:00 07/06/20 09:44 Gabapentin 300 Mg Cap PO 07/23/20 13:59 Not Given TID MARYBETH Heparin Sodium (Beef Lung) 5 ml 06/22/20 16:48 07/06/20 07:56 Heparin 10 Unit/Ml 5 Ml Flush FLUSH 07/22/20 16:47 5 ml PRN PRN Administration Flush Heparin Sodium (Porcine) 5,000 units 06/20/20 14:00 07/05/20 21:10 Heparin Sod 5,000 Unit/0.5 Ml Vial SQ 07/20/20 13:59 Not Given Q8 MARYBETH Hydralazine HCl 10 mg 06/28/20 21:48 07/05/20 14:23 Hydralazine Hcl 20 Mg/Ml Vial IV 07/28/20 21:47 10 mg Q6H PRN Administration Hypertension Lorazepam 1 mg in 2 mls @ 2 mls/min 06/14/20 20:27 06/14/20 21:30 Ativan IV 07/14/20 20:26 2 mls/min ONE PRN Administration EtoH Withdrawal AWSS 6-10 Protocol Ertapenem 1,000 mg/ Sodium 60 mls @ 100 mls/hr 06/20/20 21:00 07/05/20 22:00 Chloride IV 08/01/20 20:59 Infused Q24H [facility] Infusion Insulin Aspart 0 units 06/14/20 21:00 07/06/20 09:43 Insulin Aspart 100 Units/Ml 3 Ml Pen SC 07/14/20 20:59 Not Given ACHS [facility] Lactobacillus Acidoph/Casei/Rhamnos 2 cap 06/15/20 09:00 07/06/20 09:44 Advanced Probiotic 1250 Mg Capsule PO 07/15/20 08:59 Not Given DAILY MARYBETH Lisinopril 40 mg 07/06/20 09:00 07/06/20 09:45 Lisinopril 40 Mg Tab PO 08/05/20 08:59 40 mg DAILY MARYBETH Administration Metoprolol Succinate 25 mg 06/14/20 20:27 07/06/20 09:46 Metoprolol Succ 25mg Ext Rel Tab PO 07/14/20 20:26 25 mg DAILY MARYBETH Administration Miscellaneous 15 - 30 gm 06/15/20 20:45 07/05/20 07:00 Carbohydrates For Hypoglycemia PO 07/15/20 20:44 15 gm UD PRN Administration Hypoglycemia Treatment Multivitamins 1 tab 06/18/20 09:00 07/06/20 09:44 Multivitamin Tab PO 07/18/20 08:59 Not Given QAM MARYBETH Sodium Chloride 1 gm 06/23/20 21:00 07/06/20 09:44 Sodium Chloride 1 Gm Tablet PO 07/23/20 20:59 Not Given BID MARYBETH Thiamine HCl 200 mg 06/21/20 09:00 07/06/20 09:45 Thiamine Hcl 100 Mg Tab PO 07/21/20 08:59 Not Given QAM MARYBETH Vitamin D 2,000 units 06/15/20 09:00 07/06/20 09:45 Cholecalciferol 1,000 Units 25 Mcg Tab PO 07/15/20 08:59 Not Given DAILY MARYBETH NPO Date Last Intake of Fluids: 07/05/20 Time Last Intake of Fluids: 18:00 Last Intake of Fluids Comment: sip of water with meds Date Last Intake of Solids: 07/05/20 Time Last Intake of Solids: 18:00 Past Medical History Medical History Acute head injury Acute hyponatremia Avulsed toenail Diabetes mellitus type 2, uncontrolled Diabetic neuropathy Hypertension Hypokalemia Hypomagnesemia Tinea pedis Exercise / Class Metabolic Activity II 4-5 Yardwork/Stairs/Walk up hill Past Family History Family History Father Dementia in his 80s Mother , in her 70s Diabetes Past Surgical History Surgical History No pertinent past surgical history Past Anesthesia History No Hx of Anesthesia Complications and No Family Hx of Anesthesia Complications History of PONV No Hx of PONV and No Hx of Motion Sickness Social History Smoking Status: Unknown if ever smoked tobacco type: cigarettes Smoking cigarettes per day: 1/2 ppd Hx Alcohol Use: Yes Alcohol type: hard liquor alcohol intake frequency: a few times a week Alcohol Intake Frequency Comment: reports last drink 1 week ago Hx Substance Use: No substance use type: does not use Physical Exam Vital Signs Last Vital Signs Temp 36.6 C 07/06/20 12:23 Pulse 59 L 07/06/20 12:23 Resp 20 07/06/20 12:23 BP 187/77 H 07/06/20 12:23 Pulse Ox 97 07/06/20 12:23 ENMT Mouth: no dentition abnormality Thyromental Distance: > or= 3.5 Finger Breadths Mallampati Class: II Neck normal visual inspection Respiratory normal respiratory effort Auscultation: lungs clear to auscultation bilaterally Cardiovascular Rate/Rhythm: regular rate and regular rhythm Psychiatric Orientation: alert Testing Laboratory Results 07/06/20 06:58 07/06/20 06:58 PT 12.5 Seconds (9.0-12.0) H 07/06/20 06:58 INR 1.2 (0.9-1.1) H 07/06/20 06:58 APTT 26.9 Seconds (21.0-31.0) 06/14/20 13:56 Hemoglobin A1c 5.7 % (4.5-5.6) H 07/03/20 05:54 Urine Color Dark Yellow 06/16/20 09:35 Urine Appearance Cloudy (Clear) A 06/16/20 09:35 Urine pH 5.0 (4.5-7.5) 06/16/20 09:35 Ur Specific [place] 1.038 (1.000-1.030) H 06/16/20 09:35 Urine Protein 2+ (Negative) H 06/16/20 09:35 Urine Glucose (UA) 1+ (Negative) H 06/16/20 09:35 Urine Ketones Trace (Negative) H 06/16/20 09:35 Urine Nitrite Negative (Negative) 06/16/20 09:35 Ur Leukocyte Esterase 2+ (Negative) H 06/16/20 09:35 Urine WBC (Auto) >30 /hpf (0-5) H 06/16/20 09:35 Urine RBC (Auto) 5-10 /hpf (0-4) H 06/16/20 09:35 U Hyaline Cast (Auto) 1-5 /lpf (0-5) 06/16/20 09:35 U Epithel Cells (Auto) 5-10 /lpf (0-5) H 06/16/20 09:35 Urine Bacteria (Auto) Negative (Negative) 06/16/20 09:35 Blood Type B Positive 06/15/20 19:10 Antibody Screen NEGATIVE 06/15/20 19:10 06/17/20 11:10 Gram Stain - Final Foot,Left Aerobic and Anaerobic Culture - Final Proteus mirabilis Bacteroides fragilis 06/14/20 18:57 Aerobic Blood Culture - Final Blood No growth in Aerobic bottle after 5 days. Anaerobic Blood Culture - Final No growth in Anaerobic bottle after 5 days. 06/14/20 18:57 Aerobic Blood Culture - Final Blood No growth in Aerobic bottle after 5 days. Anaerobic Blood Culture - Final No growth in Anaerobic bottle after 5 days. 06/16/20 09:35 Urine Culture - Final Urine,Clean Catch Yeast not Unique albicans/dub 07/06/20 07/06/20 07/06/20 11:26 07:37 05:53 POC Glucose 75 90 85 07/06/20 03:08 POC Glucose 89 Electrocardiogram Date: 06/14/20 Findings: + NSR @ (at 75) Echocardiogram Date: 06/15/20 EF: 60% LV Function: normal RWMA: + none Other Findings: + LVH (mild) Valvular Disease: + MR (mild) mild tr
[2020-07-06] MEDS ORDERED: ALUMINUM/MAGNESIUM SUSP 30 ML UDC PO PRN (14:54)
[2020-07-06] MEDS ORDERED: MAGNESIUM HYDROXIDE SUSP 30 ML UDC PO PRN (14:54)
[2020-07-06] MEDS ORDERED: diphenhydrAMINE Capsule 25 MG CAP PO PRN (14:54)
[2020-07-06] MEDS ORDERED: bisacodyL 10 MG SUPP PR PRN (14:54)
[2020-07-06] MEDS ORDERED: HYDROmorphone INJ 0.5 MG/0.5 ML SYR IV PRN (14:54)
[2020-07-06] MEDS ORDERED: NALOXONE HCL 0.4 MG/1 ML VIAL/CARP IV PRN (14:54)
[2020-07-06] MEDS ORDERED: METOCLOPRAMIDE HCL INJ 5 MG/ML 2 ML VIAL IV PRN (14:54)
--- NOTE | 2020-07-06 14:54 | Post Operative Brief Note ---
Immediate Post Op Note v1 Date of Surgery July 06, 2020 Pre & Post Diagnosis Operation Date: 06/17/20 12:00 Pre-Op Diagnosis: Left great toe medial and plantar ulcers X2 with gangrene Neuropathic ulcer 4cm x 3cm x 0.4cm first MTPJ Neuropathic ulcer 12mm x 14mm x 3mm first IPJ Left FHL septic tenosynovitis Post-Op Diagnosis: Left great toe ulcer with gangrene x 2 sites great toe Left FHL septic tenosynovitis Neuropathic ulcer 4cm x 3cm x 0.4cm first MTPJ Neuropathic ulcer 12mm x 14mm x 3mm first IPJ Necrosis including skin, subcutaneous tissue, fascia and periosteum Operation Date: 06/28/20 13:50 <No data on this case meets the specified criteria> Operation Date: 07/06/20 11:20 Pre-Op Diagnosis: Left foot Diabetic Neuropathic Ulcer [id number] plantar medial first metatarsal phalangeal joint, Dry Gangrene left great Toe, peripheral vascular disease left lower extremity Post-Op Diagnosis: Left foot Diabetic Neuropathic Ulcer [id number] plantar medial first metatarsal phalangeal joint, Dry Gangrene left great Toe, peripheral vascular disease left lower extremity I identified the patient and participated in the time-out.: Yes Procedure Operation Date: 06/17/20 12:00 Actual Procedures p Incision and Drainage abscess left first metatarsal phalangeal joint, irrigation and debridement plantar medial neuropathic ulcer first metatarsal phalangeal joint 4 cm x 3 cm x 0.4 cm, irrigation and debridement medial neuropathic ulcer first interphalangeal joint 12 mm x 14 mm x 3 mm, irrigation and debridement necrotic ulcers left great toe 2 separate sites including skin, subcutaneous tissue, fascia and periosteum, left foot tenosynovectomy septic flexor hallucis longus tendon, and (Left) (Left) - Alli Maldonado DO Operation Date: 06/28/20 13:50 <No data on this case meets the specified criteria> Operation Date: 07/06/20 11:20 Actual Procedures p Left foot irrigation and Debridement Diabetic Neuropathic Ulcer [id number], resection Dry Gangrene Great Toe, Debridement of skin, subcutaneous, fascia, flexor tendon, joint capsule, and first metatarsal head bone. Application of [place] allograft [id number] to left first metatarsal phalangeal joint plantar medial foot (Left) - Alli Maldonado DO Surgeon Alli Maldonado DO Farmworker None Estimated Blood Loss 1 Findings Consistent with Post-Op Diagnosis Specimens Aerobic anaerobic Gram stain first metatarsal phalangeal joint abscess Drains Other (1/4 inch iodoform gauze x2 separate sites) Anesthesia Type General Regional Complications none Disposition Accompanied Patient To Recovery: Yes Disposition: Recovery Room
--- NOTE | 2020-07-06 15:08 | Anesthesiology Progress Note ---
Date of Service July 06, 2020 Anesthesia Post Procedure Vital Signs Vital Signs: Temp Pulse Pulse Pulse Resp BP BP 07/06/20 14:55 66 22 174/71 H 07/06/20 14:45 66 17 181/79 H 07/06/20 14:37 36.2 C L 68 22 179/81 H 07/06/20 12:23 36.6 C 59 L 20 187/77 H 07/06/20 07:48 36.6 C 62 20 173/76 H 07/05/20 23:14 37.1 C 60 18 156/69 H 07/05/20 16:07 167/70 H Pulse Ox 07/06/20 14:55 92 07/06/20 14:45 100 07/06/20 14:37 97 07/06/20 12:23 97 07/06/20 07:48 98 07/05/20 23:14 93 07/05/20 16:07 Pain Intensity Left Foot: Pain Intensity: 2 Transfer of Care Handoff Completed per policy Notes Mental Status: alert / awake / arousable Patient Amnestic to Procedure: Yes Nausea / Vomiting: adequately controlled Pain: adequately controlled Airway Patency, RR, SpO2: stable & adequate BP & HR: stable & adequate Hydration State: stable & adequate Anesthetic Complications: no major complications apparent
--- NOTE | 2020-07-06 16:44 | Operative Report (OR) ---
DATE OF OPERATION: 07/06/2020 PREOPERATIVE DIAGNOSES: 1. Left foot diabetic neuropathic ulcer measuring 7.9 cm x 4 cm x 0.5 cm on the plantar medial first metatarsophalangeal joint. 2. Dry gangrene, left great toe. 3. Peripheral vascular disease, left lower extremity. POSTOPERATIVE DIAGNOSES: 1. Left foot diabetic neuropathic ulcer measuring 7.9 cm x 4 cm x 0.5 cm on the plantar medial first metatarsophalangeal joint. 2. Dry gangrene, left great toe. 3. Peripheral vascular disease, left lower extremity. PROCEDURES: 1. Left foot irrigation and debridement, diabetic neuropathic ulcer measuring 7.9 cm x 4 cm x 0.5 cm. 2. Resection of dry gangrene of the great toe medial aspect. 3. Debridement of skin, subcutaneous tissue, fascia, flexor tendon, joint capsule and first metatarsal head bone. 4. Application of TheraSkin allograft measuring 7.9 cm x 4 cm x 0.5 cm to the left first metatarsophalangeal joint plantar medial foot. SURGEON: Alli Maldonado DO. OSTEOPATHIC RESIDENT: None. ANESTHESIA: General, regional. SPECIMENS: Previously obtained aerobic, anaerobic, Gram stain. DRAINS: None. COMPLICATIONS: None. BLOOD LOSS: 1 mL. PERTINENT HISTORY: This is a 59-year-old woman who has had severe skin loss and necrosis of her left foot related to a diabetic neuropathic ulceration. She had prior surgical debridement performed on 06/17. She had been on continued IV antibiotics and supportive care. She had some improvement overall, however, continued to have wound necrosis. After evaluation with vascular surgery, was noted to have no further interventions possible and she was then scheduled for debridement versus amputation of the left foot. After a lengthy discussion with the patient, she had preferred limb salvage at this time, and as it is a reasonable request as the skin was possibly viable surrounding the area of necrosis, I decided to proceed with the procedure as indicated. All potential risks, benefits, complications, alternatives, rehab potential for incomplete relief of symptoms, need for further surgery, DVT, PE, , persistent pain, swelling, scarring, weakness, neurovascular injury, wound complications, need for further amputation were discussed with the patient. The patient decided to proceed with the procedure as indicated. DESCRIPTION OF PROCEDURE: The patient was taken to the operative suite, placed supine on the operating table. After review of consent and identification of proper operative site, the patient was anesthetized, LMA was placed. Tourniquet was placed high on the left thigh over cast padding. Left lower extremity was then sterilely prepped and draped in usual fashion, elevated and partially exsanguinated with an Esmarch bandage and an Esmarch tourniquet applied over sterile surgical towel at the level of the ankle. Next, a 15 blade scalpel was used to sharply debride the dry gangrene from the left great toe on the medial aspect. This is adjacent to the joint capsule of the interphalangeal joint. After sharp debridement was completed, then a sharp debridement of the eschar and diabetic neuropathic ulcer measuring 7.9 cm x 4 cm x 0.5 cm was then performed with a 15 blade scalpel with sharp dissection and excision of eschar and devitalized tissue. Debridement levels include skin, subcutaneous tissue, fascia, flexor hallucis longus tendon and joint capsule of the first metatarsophalangeal joint. The plantar medial aspect of the first metatarsal head was also sharply debrided with a rongeur. The bone was noted to be firm. No softness of the bone but upon probing, that is the first metatarsal, the sesamoid and the proximal phalanx. Next, after all devitalized tissue was sharply excised down to stable base with some intermittent punctate bleeding, pulsatile lavage with 3 liters and bacitracin was then used to lavage the foot until clear. Next, top gloves and top sheet were changed and then the TheraSkin allograft was applied measuring 7.9 cm x 4 cm x 0.5 cm. This was performed with Metzenbaum scissors and then stapled in place. Complete coverage of the zone of injury in the plantar medial left foot was covered and then a local anesthetic and partial medial ankle block was then performed with approximately 20 mL of 0.5% Marcaine plain. Once this was completed, a sterile compressive dressing consisting of Adaptic, 4 x 4s, ABD pads x2 and cast padding was applied overwrapped with an Brenden wrap. The tourniquet was released. Sluggish yet improved hyperemic response was noted after removal of the tourniquet and the foot was warm and the patient was then awakened and taken to recovery in stable condition. I attest to the content of the Intraoperative Record and any orders documented therein. Any exception s are noted below.
[2020-07-06] MEDS: SODIUM CHLORIDE 0.9% 1000ML 1,000 ML IV SCH (16:45)
[2020-07-06] MEDS: ceFAZolin 1000MG 1,000 MG/7.5 ML SYR IV SCH ×2 (17:21→23:43)
[2020-07-06] MEDS ORDERED: INSULIN GLARGINE SOLOSTAR 100 UNITS/ML 3 ML PEN SC SCH (21:00)
[2020-07-06] MEDS: DOCUSATE SODIUM 100 MG CAP PO SCH (21:08)
[2020-07-06] MEDS: SENNA 8.6 MG TAB PO SCH (21:09)
[2020-07-06] MEDS: ERTAPENEM SODIUM 1,000 MG in SODIUM CHLORIDE 0.9% 50 ML IV SCH (22:02)
[2020-07-07] MEDS: SODIUM CHLORIDE 0.9% 1000ML 1,000 ML IV SCH (02:24)
[2020-07-07 06:30] LABS: Hematocrit (blood only) 30.6 % (37-47); Mean Corpuscular Hemoglobin 33.4 pg (25-34); Mean Corpuscular Hgb Conc 32.7 g/dL (32-36); Mean Corpuscular Volume 102.3 fL (80-100); Mean Platelet Volume 10.7 fL (7.4-10.4); Platelet Count 332 K/uL (130-400); RDW Coefficient of Variation 15.3 % (11.5-14.5); RDW Standard Deviation 57.3 fL (36.4-46.3); Red Blood Count 2.99 M/uL (4.2-5.4); White Blood Count 8.98 K/uL (4.8-10.8)
--- NOTE | 2020-07-07 06:31 | Orthopedic Progress Note ---
Date of Service July 07, 2020 Assessment & Plan (1) Cellulitis of great toe of left foot: POD #1 s/p Left foot I&D diabetic neuropathic ulcer, Resection of dry gangrene of the great toe medial aspect, Application of TheraSkin allograft to the left first metatarsophalangeal joint plantar medial foot. -currently has PICC, was previously on IV ertapenam 1gm daily x 6 weeks started on 06/20/20 and will continue. -dressing change tomorrow (2) Osteomyelitis: Admission and Anticipated Discharge Date Admission Date: June 14, 2020 Subjective POD #1 s/p Left foot I&D diabetic neuropathic ulcer, Resection of dry gangrene of the great toe medial aspect, Application of TheraSkin allograft to the left first metatarsophalangeal joint plantar medial foot. Review of Systems Respiratory: no cough Cardiovascular: no chest pain, no dyspnea and no orthopnea Gastrointestinal: no nausea and no vomiting Physical Exam Physical Exam: Vital Signs Temp 36.8 C 07/06/20 23:29 Pulse 64 07/06/20 23:29 Resp 18 07/06/20 23:29 BP 176/66 H 07/06/20 23:29 Pulse Ox 92 07/06/20 23:29 Intake & Output 07/06/20 07/06/20 07/07/20 06:59 18:59 06:59 Intake Total 600 / 1120 700 / 8023.291 7218.667 / 1926.66 7 Output Total 1500 / 1501 701 / 951 250 / 951 Balance -900 / -381 -1 / 975.667 976.667 / 975.667 Weight 72.1 kg 71.6 kg Intake: IV 60 / 60 1026.667 / 1026.66 7 INVanz 1,000 M G In Nss 50 ml @ 60 / 60 60 / 60 100 mls/hr IV Q24H MARYBETH Rx#: [id number] Nss 1000ML 1,0 00 ml @ 100 mls/ 966.667 / 966.667 hr IV .Q10H SC H Rx#:[id number] IV Perioperative 700 / 700 Oral 540 / 1060 200 / 200 Output: Urine 1500 / 1500 700 / 950 250 / 950 Estimated Blood Loss Other: Other Intake Ernestina rce NPO npo Weight Measureme nt Method Built in [facility] Constitutional: WD/WN, vitals as above no acute distress Musculoskeletal: left lower extremity: dressing to left foot/ankle is clean and dry, her calf is Soft, non-tender. she denies sensation to her toes, which she states is baseline for her. she has sensation from just distal to the ankle joint and above. Results & Data ([facility]) Vital Signs (Past 12 Hours) Vital Signs Temp Pulse Resp BP Pulse Ox 07/06/20 23:29 36.8 C 64 18 176/66 H 92 Laboratory Results Laboratory Results WBC 8.98 K/uL (4.8-10.8) 07/07/20 06:05 RBC 2.99 M/uL (4.2-5.4) L 07/07/20 06:05 Hgb 10.0 g/dL (12.0-16.0) L 07/07/20 06:05 POC Hgb 10.9 g/dl (12.0-16.0) L 06/14/20 14:03 Hct 30.6 % (37-47) L 07/07/20 06:05 POC Hct 32 % (37-47) L 06/14/20 14:03 MCV 102.3 fL (80-100) H 07/07/20 06:05 MCH 33.4 pg (25-34) 07/07/20 06:05 MCHC 32.7 g/dL (32-36) 07/07/20 06:05 RDW Std Deviation 57.3 fL (36.4-46.3) H 07/07/20 06:05 RDW Coeff of Francis 15.3 % (11.5-14.5) H 07/07/20 06:05 Plt Count 332 K/uL (130-400) 07/07/20 06:05 MPV 10.7 fL (7.4-10.4) H 07/07/20 06:05 Immature Gran % (Auto) 0.1 % 07/06/20 06:58 Neut % (Auto) 68.3 % 07/06/20 06:58 Lymph % (Auto) 18.9 % 07/06/20 06:58 Kendall % (Auto) 10.8 % 07/06/20 06:58 Eos % (Auto) 1.5 % 07/06/20 06:58 Baso % (Auto) 0.4 % 07/06/20 06:58 Neut # (Auto) 5.44 K/uL (1.4-6.5) 07/06/20 06:58 Lymph # (Auto) 1.51 K/uL (1.2-3.4) 07/06/20 06:58 Kendall # (Auto) 0.86 K/uL (0.11-0.59) H 07/06/20 06:58 Eos # (Auto) 0.12 K/uL (0-0.5) 07/06/20 06:58 Baso # (Auto) 0.03 K/uL (0-0.2) 07/06/20 06:58 Immature Gran # (Auto) 0.01 K/uL (0.00-0.02) 07/06/20 06:58 Absolute Nucleated RBC 0.06 K/uL (0-0) H 06/16/20 06:53 Nucleated RBC % (auto) 0.4 % 06/16/20 06:53 ESR 85 mm/hr (0-21) H 06/21/20 07:23 PT 12.5 Seconds (9.0-12.0) H 07/06/20 06:58 INR 1.2 (0.9-1.1) H 07/06/20 06:58 APTT 26.9 Seconds (21.0-31.0) 06/14/20 13:56 PTT Ratio 1.0 06/14/20 13:56 VBG pH 7.43 (7.36-7.41) H 06/15/20 19:10 VBG pCO2 44 mmHg (38-50) 06/15/20 19:10 VBG pO2 19 mmHg 06/15/20 19:10 VBG HCO3 28 mmol/L 06/15/20 19:10 VBG O2 Saturation < 60.0 % 06/15/20 19:10 VBG Base Excess 3.4 mEq/L 06/15/20 19:10 Barometric Pressure 741.4 mm/Hg 06/15/20 19:10 POC Sodium 130 mmol/L (135-144) L 06/14/20 14:03 Sodium 135 mmol/L (136-145) L 07/06/20 06:58 POC Potassium 3.7 mmol/L (3.3-5.0) 06/14/20 14:03 Potassium 4.0 mmol/L (3.5-5.1) D 07/06/20 06:58 POC Chloride 86 mmol/L (101-112) L 06/14/20 14:03 Chloride 103 mmol/L (98-107) 07/06/20 06:58 Carbon Dioxide 29 mmol/L (21-32) 07/06/20 06:58 POC Total CO2 29 mmol/L (24-31) 06/14/20 14:03 Anion Gap 3.0 (3-11) 07/06/20 06:58 POC Anion Gap 20.0 mmol/L (16-25) 06/14/20 14:03 POC BUN 11 mg/dl (7-18) 06/14/20 14:03 BUN 9 mg/dl (7-18) 07/06/20 06:58 Creatinine 0.50 mg/dl (0.6-1.2) L 07/06/20 06:58 POC Creatinine 0.4 mg/dl (0.6-1.3) L 06/14/20 14:03 Est Cr Clr Drug Dosing 123.2 ml/min 07/06/20 06:58 Est GFR ( Amer) 122.8 07/06/20 06:58 Est GFR (Non-Af Amer) 105.9 07/06/20 06:58 BUN/Creatinine Ratio 18.1 (10-20) 07/06/20 06:58 Glucose 67 mg/dl (70-99) L 07/06/20 06:58 POC Glucose (other) 326 mg/dl (70-99) H 06/14/20 14:03 POC Glucose 114 mg/dl (70-99) H 07/06/20 20:35 Estimat Average Glucose 117 mg/dl 07/03/20 05:54 Hemoglobin A1c 5.7 % (4.5-5.6) H 07/03/20 05:54 Osmolality 272 mOsm/kg (280-300) L 06/22/20 07:47 Uric Acid 2.9 mg/dl (2.6-7.2) 06/21/20 17:54 Calcium 8.6 mg/dl (8.5-10.1) 07/06/20 06:58 POC Ioniz Calcium Lizeth 1.09 mmol/l (1.12-1.32) L 06/14/20 14:03 Phosphorus 2.1 mg/dl (2.5-4.9) L 06/19/20 07:31 Magnesium 2.1 mg/dl (1.8-2.4) 06/20/20 11:16 Total Bilirubin 0.5 mg/dl (0.2-1) 07/06/20 06:58 AST 60 U/L (15-37) H 07/06/20 06:58 ALT 28 U/L (12-78) 07/06/20 06:58 Alkaline Phosphatase 104 U/L (45-117) 07/06/20 06:58 Ammonia 35.4 umol/L (11-32) H 06/15/20 19:11 Troponin I < 0.015 ng/ml (0-0.045) 06/14/20 13:56 C-Reactive Protein 1.81 mg/dl (0-0.29) H 06/21/20 07:23 Total Protein 6.6 gm/dl (6.4-8.2) 07/06/20 06:58 Albumin 2.2 gm/dl (3.4-5.0) L 07/06/20 06:58 Globulin 4.4 gm/dl (2.5-4.0) H 07/06/20 06:58 Albumin/Globulin Ratio 0.5 (0.9-2) L 07/06/20 06:58 Beta-Hydroxybutyric Acd 10.90 mg/dl (0.2-2.81) H 06/14/20 13:56 TSH 6.490 uIu/ml (0.300-4.500) H 06/21/20 07:23 Free T4 1.33 ng/dl (0.8-1.6) 06/21/20 07:23 Cortisol AM Sample 25.72 mcg/dl (4.3-22.4) H 06/21/20 07:23 Urine Color Dark Yellow 06/16/20 09:35 Urine Appearance Cloudy (Clear) A 06/16/20 09:35 Urine pH 5.0 (4.5-7.5) 06/16/20 09:35 Ur Specific [place] 1.038 (1.000-1.030) H 06/16/20 09:35 Urine Protein 2+ (Negative) H 06/16/20 09:35 Urine Glucose (UA) 1+ (Negative) H 06/16/20 09:35 Urine Ketones Trace (Negative) H 06/16/20 09:35 Urine Blood Trace (Negative) H 06/16/20 09:35 Urine Nitrite Negative (Negative) 06/16/20 09:35 Urine Bilirubin Negative (Negative) 06/16/20 09:35 Urine Urobilinogen Negative (Negative) 06/16/20 09:35 Ur Leukocyte Esterase 2+ (Negative) H 06/16/20 09:35 Urine WBC (Auto) >30 /hpf (0-5) H 06/16/20 09:35 Urine RBC (Auto) 5-10 /hpf (0-4) H 06/16/20 09:35 U Hyaline Cast (Auto) 1-5 /lpf (0-5) 06/16/20 09:35 U Epithel Cells (Auto) 5-10 /lpf (0-5) H 06/16/20 09:35 Urine Bacteria (Auto) Negative (Negative) 06/16/20 09:35 Urine Yeast Not Reportable 06/16/20 09:35 Urine Osmolality 454 mOsm/kg (500-800) L 06/22/20 06:09 Ur Random Sodium 20 mmol/L 06/22/20 06:09 Stool Occult Bld Scrn Negative (Negative) 06/19/20 Unknown Vancomycin Trough 19.7 mcg/ml (See Comment) 06/20/20 11:16 Ethyl Alcohol mg/dL < 3.0 mg/dl (0-3) 06/14/20 18:57 COVID-19 Eval Order Covid19 [facility]Now [facility] 07/06/20 07:30 SARS-CoV-2 Ag (Rapid) Negative (Negative) 06/14/20 Unknown SARS-CoV-2, RNA, NAAT NEGATIVE (NEGATIVE) 07/06/20 07:30 Blood Type B Positive 06/15/20 19:10 Blood Type Recheck B Positive 06/16/20 06:53 Antibody Screen NEGATIVE 06/15/20 19:10 Crossmatch See Detail 06/15/20 19:10
[2020-07-07 06:57] LABS: Calcium 8.4 mg/dl (8.5-10.1); Creatinine Clr Calc Pharmacy 104.1 ml/min; Est GFR (African American) 116.3; Est GFR (Non-African American) 100.3; Potassium 4.4 mmol/L (3.5-5.1)
[2020-07-07] MEDS: oxyCODONE HCL IR 5 MG TAB (IMMEDIATE RELEASE) PO PRN (07:53)
[2020-07-07] MEDS: MULTIVITAMIN TAB PO SCH ×2 (07:54→07:57)
[2020-07-07] MEDS: THIAMINE HCL 100 MG TAB PO SCH (07:54)
[2020-07-07] MEDS: lisinopril 40 MG TAB PO SCH (07:54)
[2020-07-07] MEDS: ADVANCED PROBIOTIC 1250 MG CAPSULE PO SCH (07:55)
[2020-07-07] MEDS: CHOLECALCIFEROL 1,000 UNITS 25 MCG TAB PO SCH (07:55)
[2020-07-07] MEDS: FERROUS GLUCONATE 324 MG TAB PO SCH ×2 (07:55→17:14)
[2020-07-07] MEDS: METOPROLOL SUCC 25MG EXT REL TAB PO SCH (07:55)
[2020-07-07] MEDS: GABAPENTIN 300 MG CAP PO SCH ×3 (07:56→20:58)
[2020-07-07] MEDS: FOLIC ACID 1 MG TAB PO SCH (07:56)
[2020-07-07] MEDS: SODIUM CHLORIDE 1 GM TABLET PO SCH ×2 (07:56→20:59)
[2020-07-07] MEDS: DOCUSATE SODIUM 100 MG CAP PO SCH ×2 (07:57→20:57)
[2020-07-07] MEDS: INSULIN ASPART 100 UNITS/ML 3 ML PEN SC SCH ×4 (08:00→20:58)
[2020-07-07] MEDS: INSULIN GLARGINE SOLOSTAR 100 UNITS/ML 3 ML PEN SC SCH (08:22)
--- NOTE | 2020-07-07 11:44 | Hospitalist Progress Note ---
Date of Service July 07, 2020 Assessment & Plan (1) Sepsis: 2nd to left foot cellulitis, gangrene, osteomyelitis, and septic arthritis of first MTP joint. Ortho consult with Dr Maldonado much appreciated -on 06/17 s/p extensive surgery on L foot - plan for OR for further debridement/ amputation 07/06. Further debridement 07/06/20 Echo without endocarditis. Blood cx's negative Intra-op wound cx -- proteus with bacteroides. Appreciate [facility] ID consultation and recs. Continue IV ertapenam 1gm daily x 6 weeks started on 06/20/20. PICC line placed in right upper extremity 06/22 (2) Gangrene of left foot: See above in sepsis. LLE arterial duplex study without focal occlusion of any specific vessel; diffuse atherosclerosis noted. - Dr Maldonado - 06/17/20 s/p incision and Drainage abscess left first metatarsal phalangeal joint, irri gation and debridement plantar medial neuropathic ulcer first metatarsal phalangeal joint 4 cm x 3 cm x 0.4 cm, irrigation and debridement medial neuropathic ulcer first interphalangeal joint 12 mm x 14 mm x 3 mm, irrigation and debridement necrotic ulcers left great toe 2 separate sites including skin, subcutaneous tissue, fascia and periosteum, left foot tenosynovectomy septic flexor hallucis longus tendon Intra-op culture with pansensitive proteus & bacteroides continue Ertapenem for 6 weeks total LD 08/01/2020 appreciate ortho consult/assistance (3) Osteomyelitis: MRI left foot -- 1. Small focus of osteomyelitis within the distal medial aspect of the proximal phalanx of the left first toe. Additional sites of marrow edema within the left first metatarsal head, base of the proximal phalanx of the distal phalanx consistent with osteitis. 2. Left first metatarsophalangeal joint effusion with synovial enhancement. No associated bony destruction adjacent to the joint. This suggests synovitis and sterility cannot be assessed by MRI. 3. Wound along the plantar medial aspect of the left first metatarsophalangeal joint. Soft tissue edema consistent with cellulitis. s/p extensive surgery L foot by Dr Maldonado 06/17/20 (4) Cellulitis of great toe of left foot: resolving after surgery, gangrene persists Post op as above Echo without obvious SBE. Blood cx's neg. Partial weight-bearing left foot only. (5) Weakness of both legs: suspect 2nd to sepsis neuro exam wnl since admission improved strength since admission cont PT/OT will need rehab (6) Diabetes mellitus type 2, uncontrolled: remains on basal-bolus insulin had lows on 06/20 Pharmacy glycemic consult - hypoglycemic again today Per pharmacy dc recs: Patient's HbA1C is well controlled as an outpatient and is actually below goal for her. Recommend following BSGs as an outpatient to determine if patient is having hypoglycemia as an outpatient. Would not be unreasonable to d/c Amaryl as it has an increased risk of hypoglycemia when paired with insulin. (7) Chronic alcohol use: no evidence of withdrawal cont thiamine 200mg daily cont folate 1mg daily cont MVI (8) Diabetic neuropathy: Severe. started gabapentin 200mg TID. titrated up to 300mg TID on 06/23, continue this on discharge (9) Pulmonary nodules/lesions, multiple: Seen on CT chest earlier this fall. COVID was negative (antigen test) this admission and on past admission O2 sats stable in RA repeat COVID PCR negative as well needs f/u CT chest in 2-3 months (10) Hypomagnesemia: repleted and resolved (11) Hyponatremia: concern for siadh cortisol wnl TSH minimally elevated but fT4 wnl place on sodium 1gm BID - given fluid retention may need to reduce this to 1 gm per day - will wait until after surgery tomorrow to adjust continue 1800cc fluid restriction - now with resolution of hyponatremia continue the above regimen on discharge (12) Acute hepatitis: LFTs are chronically elevated, but much worse at onset of this admission - now much improved, ALT with mild elevation INR was also worse at 1.6 and now improved to 1.2 Suspect Acute alcoholic hepatitis. HepC Ab 05/15 was negative. Patient was having diarrhea so lactulose was stopped (13) Coagulopathy: 2nd to acute hepatitis (suspected), possibly with nutritional component as patient had improvement with vitamin K administartion 1.6 INR at admission. s/p vitamin K with improved INR to 1.2. (14) Hypertension: Continue metoprolol Increased BETZAIDA to 40 mg daily 07/06 May need to add calcium channel ryan like amlodipine Patient has been hypertensive, utilizing prn hydralazine. She has not had any headache, chest pain, visual changes, nose bleeds or s/s of end organ damage (15) Acute metabolic encephalopathy: resolved was likely 2nd sepsis stopped lactulose as she is having a lot of diarrhea (16) Anemia: s/p 1 unit prcs this admission fecal occult neg h/h acceptable since then - stable around 10 (17) Hyperkalemia: iatrogenic 2nd to K supplement and K-phos supplement both stopped hypokalemic today - given 40 mEq supplementation as she will have further furosemide today (18) Shortness of breath: 07/02 - 2 view chest xray showing Interval progression of the pulmonary edema and small bilateral pleural effusions. Echo on 06/15 without reduced EF Iatrogenic fluid overload vs diastolic chf Diuresed with IV furosemide x 3 days - continues to have intermittent sob and orthopnea, she is not having symptoms today COPD may play a role as patient is a smoker although she does not appear to be in exacerbation Encourage IS (19) DVT prophylaxis: heparin SC TID CM working on placement - has auth for [facility] but will need to wait until after repeat surgery on Thursday (20) Frequent PVCs: 07/03 - PVCs, intermittent bigem, appears to have resolved. Asymptomatic Admission and Anticipated Discharge Date Admission Date: June 14, 2020 Supervising Physician Co-Signing Physician Notes chart reviewed and case d/w S Alexander NDIAYE. agree w above Subjective Ms. Marquez is pod #1. She had a bit of sob last evening but is not experiencing it today. Review of Systems Constitutional: no fever, no chills and no body aches Respiratory: no cough and no wheezing Cardiovascular: no chest pain and no palpitations Gastrointestinal: no abdominal pain, no nausea and no vomiting Genitourinary: no dysuria and no urinary hesitancy Musculoskeletal: no back pain and no joint pain Integumentary: no rash Physical Exam Physical Exam: General: no distress Eyes: normal inspection, PERLL Respiratory: chest non tender, clear to auscultation, normal breath sounds, no respiratory distress, no accessory muscle use Cardiac: regular rate and rhythm, no rub or gallop, no murmur, no edema, no jvd GI/: active bowel sounds, no abd pain or tenderness, soft, non distended Extremities: normal range of motion, normal strength, non tender Neuro/Psych: alert and oriented x 3, normal mood and affect Skin: normal color, dry Results & Data Results & Data ([facility]) Vital Signs (Past 12 Hours) Vital Signs Temp Pulse Pulse Resp BP Pulse Ox 07/07/20 08:25 84 162/69 H 07/07/20 07:22 37.1 C 86 18 184/69 H 90 PG Care Time/CCT Total # of Minutes Spent Total Time Spent with Patient: Total time spent is greater than 50% in coordina tion of care (as documented) at patient's floor/unit and/or counseling patient: Coding Level of Care Code 03085 Subseq Hosp Care Lvl 2 Diagnoses Sepsis A41.9 Gangrene of left foot I96 Osteomyelitis M86.9 Cellulitis of great toe of left foot L03.032 Weakness of both legs R29.898 Diabetes mellitus type 2, uncontrolled E11.65 Glycemic state: with hyperglycemia Chronic alcohol use Z72.89 Diabetic neuropathy E11.42 Diabetes mellitus complication detail: diabetic polyneuropathy Diabetes mellitus type: type 2 Pulmonary nodules/lesions, multiple R91.8 Hypomagnesemia E83.42 Hyponatremia E87.1 Acute hepatitis B17.9 Coagulopathy D68.9 Hypertension I10 Hypertension type: essential hypertension Acute metabolic encephalopathy G93.41 Anemia D64.9 Hyperkalemia E87.5 Shortness of breath R06.02 DVT prophylaxis Z29.9 Frequent PVCs I49.3 (1) Diabetic neuropathy Diabetes mellitus complication detail: diabetic polyneuropathy Diabetes m ellitus type: type 2 Qualified Code(s): E11.42 - Type 2 diabetes mellitus with diabetic polyneuropathy (2) Diabetes mellitus type 2, uncontrolled Glycemic state: with hyperglycemia Qualified Code(s): E11.65 - Type 2 diabetes mellitus with hyperglycemia (3) Hypertension Hypertension type: essential hypertension Qualified Code(s): I10 - Essential (primary) hypertension
[2020-07-07] MEDS: HEPARIN SOD 5,000 UNIT/0.5 ML VIAL SQ SCH ×2 (14:14→20:57)
--- NOTE | 2020-07-07 15:14 | Pharmacy Report ---
Pharmacy Glycemic Short Note 2 - Date of Service July 07, 2020 - Glycemic Short BSG Results (Last 24 hours): 07/06/20 07/06/20 07/07/20 16:33 20:35 06:05 Glucose 100 H POC Glucose 81 114 H 07/07/20 07/07/20 07:37 11:45 Glucose POC Glucose 131 H 211 H OUTPATIENT ANTIDIABETIC REGIMEN: * Amaryl 2 mg daily * Lantus 20 units HS * metformin 1000 mg BID * A1c = 5.7 % 07/03/20 ASSESSMENT: 07/07: * Patient received total of 1 units of bolus insulin yesterday and no bolus. * She had been NPO since midnight for debridement/ surgery of L foot cellulitis yesterday but is now ordered a diet. * Lantus was put on hold yesterday since BSGs were trending low. * Fasting BSG today was 100 mg/dl. Resumed Lantus 10 units QAM today. * Pre-lunch BSG today was elevated at 211, Novolog carb ratio was tightened. 07/05: * Patient received total of 48 units of insulin yesterday, of which 22 units was basal. * Fasting BSG was low this AM at 48 mg/dl. Lantus dose for HS was reduced to 15 units. * Post-prandial BSG have also been within or near goal. Loosened CR and goal range for Novolog with breakfast today to prevent hypoglycemia. PLAN FOR INPATIENT GLYCEMIC CONTROL: * Hold outpatient oral diabetes medications * Basal insulin: held yesterday, resumed at lower dose today. * Lantus 10 units SQ QAM * Bolus insulin: Carb ratio tightened * NovoLog per scale ACHS or Q6hrs while NPO * Goal Range: Low 100 mg/dL - High 140 mg/dL * Correction Factor: 15 mg/dL/unit * Nutritional / Prandial insulin per carb ratio of 1 unit per 6 grams CHO consumed RECOMMENDATION FOR DISCHARGE: * Patient's HbA1C is well controlled as an outpatient and is actually below goal for her. * Recommend following BSGs as an outpatient to determine if patient is having hypoglycemia as an outpatient. * Would not be unreasonable to d/c Amaryl as it has an increased risk of hypoglycemia when paired with insulin.
[2020-07-07] MEDS: ALBUTEROL HFA 8 GM INHALER INH SCH ×2 (15:44→20:27)
[2020-07-07] MEDS: ERTAPENEM SODIUM 1,000 MG in SODIUM CHLORIDE 0.9% 50 ML IV SCH (20:57)
[2020-07-07] MEDS: SENNA 8.6 MG TAB PO SCH (20:58)
[2020-07-08] MEDS: ALBUTEROL HFA 8 GM INHALER INH SCH ×5 (00:14→15:39)
[2020-07-08] MEDS: oxyCODONE HCL IR 5 MG TAB (IMMEDIATE RELEASE) PO PRN (03:34)
[2020-07-08 06:26] LABS: Hematocrit (blood only) 31.5 % (37-47); Hemoglobin 10.2 g/dL (12.0-16.0); Mean Corpuscular Hgb Conc 32.4 g/dL (32-36); Mean Corpuscular Volume 101.9 fL (80-100); Mean Platelet Volume 10.6 fL (7.4-10.4); Platelet Count 341 K/uL (130-400); RDW Coefficient of Variation 15.1 % (11.5-14.5); RDW Standard Deviation 56.1 fL (36.4-46.3); Red Blood Count 3.09 M/uL (4.2-5.4); White Blood Count 8.57 K/uL (4.8-10.8)
[2020-07-08] MEDS: HEPARIN SOD 5,000 UNIT/0.5 ML VIAL SQ SCH ×3 (06:36→20:53)
--- NOTE | 2020-07-08 06:58 | Orthopedic Progress Note ---
Date of Service July 08, 2020 Assessment & Plan (1) Cellulitis of great toe of left foot: POD #2 s/p Left foot I&D diabetic neuropathic ulcer, Resection of dry gangrene of the great toe medial aspect, Application of TheraSkin allograft to the left first metatarsophalangeal joint plantar medial foot. -currently has PICC, was previously on IV ertapenam 1gm daily x 6 weeks started on 06/20/20 and will continue. -dressing was changed today, new adaptec, 4x4 kerlex and petros applied. -daily dressing changes (2) Osteomyelitis: Admission and Anticipated Discharge Date Admission Date: June 14, 2020 Subjective POD #2 s/p Left foot I&D diabetic neuropathic ulcer, Resection of dry gangrene of the great toe medial aspect, Application of TheraSkin allograft to the left first metatarsophalangeal joint plantar medial foot. Review of Systems Review of Systems: All systems reviewed & are unremarkable except as noted in HPI & below Constitutional: no fever and no chills Cardiovascular: no chest pain, no dyspnea and no orthopnea Physical Exam Physical Exam: Vital Signs Temp 37.1 C 07/07/20 23:20 Pulse 67 07/07/20 23:20 Resp 18 07/07/20 23:20 BP 167/66 H 07/07/20 23:20 Pulse Ox 93 07/07/20 23:20 Intake & Output 07/07/20 07/07/20 07/08/20 06:59 18:59 06:59 Intake Total 1226.667 / 1926.66 7 520 / 520 Output Total 250 / 951 300 / 500 200 / 500 Balance 976.667 / 975.667 -300 / 20 320 / 20 Weight 71.6 kg Intake: IV 1026.667 / 1026.66 7 60 / 60 INVanz 1,000 M G In Nss 50 ml @ 60 / 60 60 / 60 100 mls/hr IV Q24H MARYBETH Rx#: [id number] Nss 1000ML 1,0 00 ml @ 100 mls/ 966.667 / 966.667 hr IV .Q10H SC H Rx#:[id number] Oral 200 / 200 460 / 460 Output: Urine 250 / 950 300 / 500 200 / 500 Other: # Unmeasured Voi ds 1 Weight Measureme nt Method Built in [facility] Constitutional: WD/WN, vitals as above no acute distress Musculoskeletal: Left foot: dressing removed, theraskin is present over the left foot wound which is stapled in place. there was minimal amount of dried blood on the dressing. there is erythema noted surrounding the wound which extends to the midfoot region and plantar surface to the midfoot region as well. she is able to plantar/dorsiflex without pain, calf is soft, non-tender Results & Data ([facility]) Vital Signs (Past 12 Hours) Vital Signs Temp Pulse Pulse Resp BP Pulse Ox 07/07/20 23:20 37.1 C 67 18 167/66 H 93 07/07/20 20:32 89 16 90 Laboratory Results Laboratory Results WBC 8.57 K/uL (4.8-10.8) 07/08/20 05:52 RBC 3.09 M/uL (4.2-5.4) L 07/08/20 05:52 Hgb 10.2 g/dL (12.0-16.0) L 07/08/20 05:52 POC Hgb 10.9 g/dl (12.0-16.0) L 06/14/20 14:03 Hct 31.5 % (37-47) L 07/08/20 05:52 POC Hct 32 % (37-47) L 06/14/20 14:03 MCV 101.9 fL (80-100) H 07/08/20 05:52 MCH 33.0 pg (25-34) 07/08/20 05:52 MCHC 32.4 g/dL (32-36) 07/08/20 05:52 RDW Std Deviation 56.1 fL (36.4-46.3) H 07/08/20 05:52 RDW Coeff of Francis 15.1 % (11.5-14.5) H 07/08/20 05:52 Plt Count 341 K/uL (130-400) 07/08/20 05:52 MPV 10.6 fL (7.4-10.4) H 07/08/20 05:52 Immature Gran % (Auto) 0.1 % 07/06/20 06:58 Neut % (Auto) 68.3 % 07/06/20 06:58 Lymph % (Auto) 18.9 % 07/06/20 06:58 Jasper % (Auto) 10.8 % 07/06/20 06:58 Eos % (Auto) 1.5 % 07/06/20 06:58 Baso % (Auto) 0.4 % 07/06/20 06:58 Neut # (Auto) 5.44 K/uL (1.4-6.5) 07/06/20 06:58 Lymph # (Auto) 1.51 K/uL (1.2-3.4) 07/06/20 06:58 Jasper # (Auto) 0.86 K/uL (0.11-0.59) H 07/06/20 06:58 Eos # (Auto) 0.12 K/uL (0-0.5) 07/06/20 06:58 Baso # (Auto) 0.03 K/uL (0-0.2) 07/06/20 06:58 Immature Gran # (Auto) 0.01 K/uL (0.00-0.02) 07/06/20 06:58 Absolute Nucleated RBC 0.06 K/uL (0-0) H 06/16/20 06:53 Nucleated RBC % (auto) 0.4 % 06/16/20 06:53 ESR 85 mm/hr (0-21) H 06/21/20 07:23 PT 12.5 Seconds (9.0-12.0) H 07/06/20 06:58 INR 1.2 (0.9-1.1) H 07/06/20 06:58 APTT 26.9 Seconds (21.0-31.0) 06/14/20 13:56 PTT Ratio 1.0 06/14/20 13:56 VBG pH 7.43 (7.36-7.41) H 06/15/20 19:10 VBG pCO2 44 mmHg (38-50) 06/15/20 19:10 VBG pO2 19 mmHg 06/15/20 19:10 VBG HCO3 28 mmol/L 06/15/20 19:10 VBG O2 Saturation < 60.0 % 06/15/20 19:10 VBG Base Excess 3.4 mEq/L 06/15/20 19:10 Barometric Pressure 741.4 mm/Hg 06/15/20 19:10 POC Sodium 130 mmol/L (135-144) L 06/14/20 14:03 Sodium 134 mmol/L (136-145) L 07/07/20 06:05 POC Potassium 3.7 mmol/L (3.3-5.0) 06/14/20 14:03 Potassium 4.4 mmol/L (3.5-5.1) 07/07/20 06:05 POC Chloride 86 mmol/L (101-112) L 06/14/20 14:03 Chloride 102 mmol/L (98-107) 07/07/20 06:05 Carbon Dioxide 29 mmol/L (21-32) 07/07/20 06:05 POC Total CO2 29 mmol/L (24-31) 06/14/20 14:03 Anion Gap 3.0 (3-11) 07/07/20 06:05 POC Anion Gap 20.0 mmol/L (16-25) 06/14/20 14:03 POC BUN 11 mg/dl (7-18) 06/14/20 14:03 BUN 9 mg/dl (7-18) 07/07/20 06:05 Creatinine 0.59 mg/dl (0.6-1.2) L 07/07/20 06:05 POC Creatinine 0.4 mg/dl (0.6-1.3) L 06/14/20 14:03 Est Cr Clr Drug Dosing 104.1 ml/min 07/07/20 06:05 Est GFR ( Amer) 116.3 07/07/20 06:05 Est GFR (Non-Af Amer) 100.3 07/07/20 06:05 BUN/Creatinine Ratio 15.0 (10-20) 07/07/20 06:05 Glucose 100 mg/dl (70-99) H 07/07/20 06:05 POC Glucose (other) 326 mg/dl (70-99) H 06/14/20 14:03 POC Glucose 138 mg/dl (70-99) H 07/08/20 03:34 Estimat Average Glucose 117 mg/dl 07/03/20 05:54 Hemoglobin A1c 5.7 % (4.5-5.6) H 07/03/20 05:54 Osmolality 272 mOsm/kg (280-300) L 06/22/20 07:47 Uric Acid 2.9 mg/dl (2.6-7.2) 06/21/20 17:54 Calcium 8.4 mg/dl (8.5-10.1) L 07/07/20 06:05 POC Ioniz Calcium Lizeth 1.09 mmol/l (1.12-1.32) L 06/14/20 14:03 Phosphorus 2.1 mg/dl (2.5-4.9) L 06/19/20 07:31 Magnesium 2.1 mg/dl (1.8-2.4) 06/20/20 11:16 Total Bilirubin 0.5 mg/dl (0.2-1) 07/06/20 06:58 AST 60 U/L (15-37) H 07/06/20 06:58 ALT 28 U/L (12-78) 07/06/20 06:58 Alkaline Phosphatase 104 U/L (45-117) 07/06/20 06:58 Ammonia 35.4 umol/L (11-32) H 06/15/20 19:11 Troponin I < 0.015 ng/ml (0-0.045) 06/14/20 13:56 C-Reactive Protein 1.81 mg/dl (0-0.29) H 06/21/20 07:23 Total Protein 6.6 gm/dl (6.4-8.2) 07/06/20 06:58 Albumin 2.2 gm/dl (3.4-5.0) L 07/06/20 06:58 Globulin 4.4 gm/dl (2.5-4.0) H 07/06/20 06:58 Albumin/Globulin Ratio 0.5 (0.9-2) L 07/06/20 06:58 Beta-Hydroxybutyric Acd 10.90 mg/dl (0.2-2.81) H 06/14/20 13:56 TSH 6.490 uIu/ml (0.300-4.500) H 06/21/20 07:23 Free T4 1.33 ng/dl (0.8-1.6) 06/21/20 07:23 Cortisol AM Sample 25.72 mcg/dl (4.3-22.4) H 06/21/20 07:23 Urine Color Dark Yellow 06/16/20 09:35 Urine Appearance Cloudy (Clear) A 06/16/20 09:35 Urine pH 5.0 (4.5-7.5) 06/16/20 09:35 Ur Specific Leiter 1.038 (1.000-1.030) H 06/16/20 09:35 Urine Protein 2+ (Negative) H 06/16/20 09:35 Urine Glucose (UA) 1+ (Negative) H 06/16/20 09:35 Urine Ketones Trace (Negative) H 06/16/20 09:35 Urine Blood Trace (Negative) H 06/16/20 09:35 Urine Nitrite Negative (Negative) 06/16/20 09:35 Urine Bilirubin Negative (Negative) 06/16/20 09:35 Urine Urobilinogen Negative (Negative) 06/16/20 09:35 Ur Leukocyte Esterase 2+ (Negative) H 06/16/20 09:35 Urine WBC (Auto) >30 /hpf (0-5) H 06/16/20 09:35 Urine RBC (Auto) 5-10 /hpf (0-4) H 06/16/20 09:35 U Hyaline Cast (Auto) 1-5 /lpf (0-5) 06/16/20 09:35 U Epithel Cells (Auto) 5-10 /lpf (0-5) H 06/16/20 09:35 Urine Bacteria (Auto) Negative (Negative) 06/16/20 09:35 Urine Yeast Not Reportable 06/16/20 09:35 Urine Osmolality 454 mOsm/kg (500-800) L 06/22/20 06:09 Ur Random Sodium 20 mmol/L 06/22/20 06:09 Stool Occult Bld Scrn Negative (Negative) 06/19/20 Unknown Vancomycin Trough 19.7 mcg/ml (See Comment) 06/20/20 11:16 Ethyl Alcohol mg/dL < 3.0 mg/dl (0-3) 06/14/20 18:57 COVID-19 Eval Order Covid19 IDNow [facility] 07/06/20 07:30 SARS-CoV-2 Ag (Rapid) Negative (Negative) 06/14/20 Unknown SARS-CoV-2, RNA, NAAT NEGATIVE (NEGATIVE) 07/06/20 07:30 Blood Type B Positive 06/15/20 19:10 Blood Type Recheck B Positive 06/16/20 06:53 Antibody Screen NEGATIVE 06/15/20 19:10 Crossmatch See Detail 06/15/20 19:10
[2020-07-08 07:01] LABS: BUN Creatinine Ratio 16.6 (10-20); Calcium 8.8 mg/dl (8.5-10.1); Creatinine Clr Calc Pharmacy 111.7 ml/min; Est GFR (Non-African American) 102.7; Potassium 4.5 mmol/L (3.5-5.1)
[2020-07-08] MEDS: INSULIN ASPART 100 UNITS/ML 3 ML PEN SC SCH ×4 (08:23→20:42)
[2020-07-08] MEDS: MULTIVITAMIN TAB PO SCH ×2 (08:25→08:28)
[2020-07-08] MEDS: FOLIC ACID 1 MG TAB PO SCH (08:25)
[2020-07-08] MEDS: FERROUS GLUCONATE 324 MG TAB PO SCH ×2 (08:25→17:12)
[2020-07-08] MEDS: GABAPENTIN 300 MG CAP PO SCH ×3 (08:26→20:18)
[2020-07-08] MEDS: METOPROLOL SUCC 25MG EXT REL TAB PO SCH (08:27)
[2020-07-08] MEDS: CHOLECALCIFEROL 1,000 UNITS 25 MCG TAB PO SCH (08:27)
[2020-07-08] MEDS: ADVANCED PROBIOTIC 1250 MG CAPSULE PO SCH (08:27)
[2020-07-08] MEDS: SODIUM CHLORIDE 1 GM TABLET PO SCH (08:27)
[2020-07-08] MEDS: THIAMINE HCL 100 MG TAB PO SCH (08:27)
[2020-07-08] MEDS: lisinopril 40 MG TAB PO SCH (08:28)
[2020-07-08] MEDS: DOCUSATE SODIUM 100 MG CAP PO SCH ×2 (08:29→20:18)
[2020-07-08] MEDS: INSULIN GLARGINE SOLOSTAR 100 UNITS/ML 3 ML PEN SC SCH ×2 (08:29→20:43)
[2020-07-08] MEDS: hydrALAZINE HCL 20 MG/ML VIAL IV PRN ×2 (11:57→21:03)
[2020-07-08] MEDS ORDERED: OPTIRAY 320 125ml IV ONE (11:57)
--- NOTE | 2020-07-08 14:25 | CT Scan Report ---
CHEST CTA for PULMONARY ARTERIES CT DOSE: 314.10 mGy.cm HISTORY: Atypical chest pain. TECHNIQUE: Multiaxial CT images of the chest were performed following the intravenous administration of contrast to evaluate the pulmonary arteries. Maximal intensity projection images were also obtaine d. A dose lowering technique was utilized adhering to the principles of ALARA. COMPARISON STUDY: Chest CT 04/27/2020. FINDINGS: Limited views of the upper abdomen demonstrate a normal liver and spleen. There is retrogra de opacification of the hepatic veins. The heart is borderline enlarged. No pericardial effusions. Steiner bcentimeter mediastinal lymph nodes do not meet CT criteria for pathologic involvement. No significan t hilar lymphadenopathy. Mild diffuse body wall edema. Moderate bilateral pleural effusions. Normal e sophagus. Normal caliber thoracic aorta with no evidence for dissection. A right PICC terminates in t he distal SVC. No filling defects within the pulmonary arteries to suggest pulmonary embolus. No susp icious lytic or blastic osseous lesions. The central airways are patent. There is diffuse interlobula r septal thickening consistent with pulmonary edema. A few small groundglass airspace opacities withi n the right upper lobe. This favors an alveolar component of the pulmonary edema. Consolidation withi n the bilateral lower lobes posteriorly. This favors compressive atelectasis from the pleural effusio ns. IMPRESSION: 1. Moderate pulmonary edema with moderate bilateral pleural effusions as described above. 2. Consolidation within the bilateral lobes posteriorly. This favors compressive atelectasis from the pleural effusions. A pneumonia could also have a similar appearance but is considered less likely. ACT 112: Negative or not required by law. Electronically signed by: Shree Santiago M.D. 07/08/2020 2:24 PM
--- NOTE | 2020-07-08 14:34 | Hospitalist Progress Note ---
Date of Service July 08, 2020 Assessment & Plan (1) Sepsis: 2nd to left foot cellulitis, gangrene, osteomyelitis, and septic arthritis of first MTP joint. Ortho consult with Dr Maldonado much appreciated -on 06/17 s/p extensive surgery on L foot - plan for OR for further debridement/ amputation 07/06. Further debridement 07/06/20 Echo without endocarditis. Blood cx's negative Intra-op wound cx -- proteus with bacteroides. [facility]. Continue IV ertapenam 1gm daily x 6 weeks started on 06/20/20. PICC line placed in right upper extremity 06/22 (2) Gangrene of left foot: See above in sepsis. LLE arterial duplex study without focal occlusion of any specific vessel; diffuse atherosclerosis noted. - Dr Maldonado - 06/17/20, 07/06 s/p incision and Drainage abscess left first metatarsal phalangeal joint, irrigation and debridement plantar medial neuropathic ulcer first metatarsal phalangeal joint 4 cm x 3 cm x 0.4 cm, irrigation and debridement medial neuropathic ulcer first interphalangeal joint 12 mm x 14 mm x 3 mm, irrigation and debridement necrotic ulcers left great toe 2 separate sites including skin, subcutaneous tissue, fascia and periosteum, left foot tenosynovectomy septic flexor hallucis longus tendon Intra-op culture with pansensitive proteus & bacteroides continue Ertapenem for 6 weeks total LD 08/01/2020 appreciate ortho consult/assistance (3) Osteomyelitis: MRI left foot -- 1. Small focus of osteomyelitis within the distal medial aspect of the proximal phalanx of the left first toe. Additional sites of marrow edema within the left first metatarsal head, base of the proximal phalanx of the distal phalanx consistent with osteitis. 2. Left first metatarsophalangeal joint effusion with synovial enhancement. No associated bony destruction adjacent to the joint. This suggests synovitis and sterility cannot be assessed by MRI. 3. Wound along the plantar medial aspect of the left first metatarsophalangeal joint. Soft tissue edema consistent with cellulitis. s/p extensive surgery L foot by Dr Maldonado 06/17/20 (4) Cellulitis of great toe of left foot: resolving after surgery, gangrene persists Post op as above Echo without obvious SBE. Blood cx's neg. Partial weight-bearing left foot only. (5) Shortness of breath: Likely secondary to diastolic CHF 07/02 - 2 view chest xray showing Interval progression of the pulmonary edema and small bilateral pleural effusions. Echo on 06/15 without reduced EF Diuresed with IV furosemide x 3 days with improvement but then significantly dyspneic on 07/08 - CTA to assess for PE was negative for such - moderate pulmonary edema with moderate bilateral pleural effusions as described above, co nsolidation within the bilateral lobes posteriorly. This favors compressive atelectasis from the pleural effusions. A pneumonia could also have a similar appearance but is considered less likely Does not appear to be pna- no leukocytosis, cough or fever Encourage IS, will give another dose of IV lasix today. Possibly her fluid status is being confounded by intake of po sodium for hyponatremia. Will try decreasing sodium by half to 1g daily and see if she can maintain her sodium level without hanging on to fluid. May need to consider thoracentesis for effusions if diuresing with Lasix is in effective. Will schedule another dose of 40 mg IV am (6) Weakness of both legs: suspect 2nd to sepsis neuro exam wnl since admission improved strength since admission cont PT/OT will need rehab (7) Diabetes mellitus type 2, uncontrolled: remains on basal-bolus insulin had lows on 06/20 Pharmacy glycemic consult - hypoglycemic again today Per pharmacy dc recs: Patient's HbA1C is well controlled as an outpatient and is actually below goal for her. Recommend following BSGs as an outpatient to determine if patient is having hypoglycemia as an outpatient. Would not be unreasonable to d/c Amaryl as it has an increased risk of hypoglycemia when paired with insulin. (8) Chronic alcohol use: no evidence of withdrawal cont thiamine 200mg daily cont folate 1mg daily cont MVI (9) Diabetic neuropathy: Severe. started gabapentin 200mg TID. titrated up to 300mg TID on 06/23, continue this on discharge (10) Pulmonary nodules/lesions, multiple: Seen on CT chest earlier this fall. COVID was negative (antigen test) this admission and on past admission O2 sats stable in RA repeat COVID PCR negative as well needs f/u CT chest in 2-3 months - radiology was unable to comment on the status of the opacities/nodules on her CTA from 07/08 due to pulmonary edema. Patient will need repeat when pulmonary edema is resolved (11) Hypomagnesemia: repleted and resolved (12) Hyponatremia: concern for siadh cortisol wnl TSH minimally elevated but fT4 wnl place on sodium 1gm BID - given fluid retention may need to reduce this to 1 gm per day continue 1800cc fluid restriction continue the above regimen on discharge (13) Acute hepatitis: LFTs are chronically elevated, but much worse at onset of this admission - now much improved, ALT with mild elevation INR was also worse at 1.6 and now improved to 1.2 Suspect Acute alcoholic hepatitis. HepC Ab 05/15 was negative. Patient was having diarrhea so lactulose was stopped (14) Coagulopathy: 2nd to acute hepatitis (suspected), possibly with nutritional component as patient had improvement with vitamin K administartion 1.6 INR at admission. s/p vitamin K with improved INR to 1.2. (15) Hypertension: Continue metoprolol Increased BETZAIDA to 40 mg daily 07/06 May need to add calcium channel ryan like amlodipine Patient has been hypertensive, utilizing prn hydralazine. She has not had any headache, chest pain, visual changes, nose bleeds or s/s of end organ damage (16) Acute metabolic encephalopathy: resolved was likely 2nd sepsis stopped lactulose as she is having a lot of diarrhea (17) Anemia: s/p 1 unit prcs this admission fecal occult neg h/h acceptable since then - stable around 10 (18) Hyperkalemia: iatrogenic 2nd to K supplement and K-phos supplement both stopped hypokalemic today - given 40 mEq supplementation as she will have further furosemide today (19) DVT prophylaxis: heparin SC TID CM working on placement - to [facility] when ready for dc (20) Frequent PVCs: 07/03 - PVCs, intermittent bigem, appears to have resolved. Asymptomatic Admission and Anticipated Discharge Date Admission Date: June 14, 2020 Supervising Physician Co-Signing Physician Notes chart reviewed and case d/w S Alexander NDIAYE. agree w above Subjective Ms. Marquez is very sob today, saturations were as low as 89%. No cough, no chest pain Review of Systems Constitutional: no fever, no chills and no body aches Respiratory: no cough and no dyspnea Cardiovascular: no chest pain and no palpitations Gastrointestinal: no abdominal pain and no early satiety Genitourinary: no dysuria and no urinary hesitancy Musculoskeletal: no back pain and no joint pain Integumentary: no rash Physical Exam Physical Exam: General: no distress Eyes: normal inspection, PERLL Respiratory: chest non tender, clear to auscultation, normal breath sounds, no respiratory distress, no accessory muscle use Cardiac: regular rate and rhythm, no rub or gallop, no murmur, no edema, no jvd GI/: active bowel sounds, no abd pain or tenderness, soft, non distended Extremities: normal range of motion, normal strength, non tender Neuro/Psych: alert and oriented x 3, normal mood and affect Skin: normal color, dry Results & Data Results & Data ([facility]) Vital Signs (Past 12 Hours) Vital Signs Temp Pulse Pulse Resp BP Pulse Ox 07/08/20 11:50 64 190/92 H 07/08/20 10:36 37.4 C 74 18 182/84 H 89 L 07/08/20 08:10 36.5 C 62 18 177/72 H 90 PG Care Time/CCT Total # of Minutes Spent Total Time Spent with Patient: Total time spent is greater than 50% in coordination of care (as documented) at patient's floor/unit and/or counseling patient: Coding Level of Care Code 81023 Subseq Hosp Care Lvl 3 Diagnoses Sepsis A41.9 Gangrene of left foot I96 Osteomyelitis M86.9 Cellulitis of great toe of left foot L03.032 Shortness of breath R06.02 Weakness of both legs R29.898 Diabetes mellitus type 2, uncontrolled E11.65 Glycemic state: with hyperglycemia Chronic alcohol use Z72.89 Diabetic neuropathy E11.42 Diabetes mellitus complication detail: diabetic polyneuropathy Diabetes mellitus type: type 2 Pulmonary nodules/lesions, multiple R91.8 Hypomagnesemia E83.42 Hyponatremia E87.1 Acute hepatitis B17.9 Coagulopathy D68.9 Hypertension I10 Hypertension type: essential hypertension Acute metabolic encephalopathy G93.41 Anemia D64.9 Hyperkalemia E87.5 DVT prophylaxis Z29.9 Frequent PVCs I49.3 (1) Diabetic neuropathy Diabetes mellitus complication detail: diabetic polyneuropathy Diabetes mellitus type: type 2 Qualified Code(s): E11.42 - Type 2 diabetes mellitus with diabetic polyneuropathy (2) Diabetes mellitus type 2, uncontrolled Glycemic state: with hyperglycemia Qualified Code(s): E11.65 - Type 2 diabetes mellitus with hyperglycemia (3) Hypertension Hypertension type: essential hypertension Qualified Code(s): I10 - Essential (primary) hypertension
--- NOTE | 2020-07-08 14:49 | Pharmacy Report ---
Pharmacy Glycemic Short Note 2 - Date of Service July 08, 2020 - Glycemic Short BSG Results (Last 24 hours): 07/07/20 07/07/20 07/08/20 16:55 20:14 03:34 Glucose POC Glucose 126 H 144 H 138 H 07/08/20 07/08/20 07/08/20 05:52 07:33 11:22 Glucose 133 H POC Glucose 134 H 256 H OUTPATIENT ANTIDIABETIC REGIMEN: * Amaryl 2 mg daily * Lantus 20 units HS * metformin 1000 mg BID * A1c = 5.7 % 07/03/20 ASSESSMENT: 07/08: * Patient received total of 29 units of insulin yesterday; 10 units of basal and 19 units bolus. * Fasting BSG today was 133 mg/dl. Lantus dose continued this AM and HS dose ordered based on BSG scale. * Post-prandial BSG at goal yesterday. Today pre-lunch BSG was elevated at 256 mg/dl. * Continued current Novolog parameters. 07/07: * Patient received total of 1 units of bolus insulin yesterday and no basal. * She had been NPO since midnight for debridement/ surgery of L foot cellulitis yesterday but is now ordered a diet. * Lantus was put on hold yesterday since BSGs were trending low. * Fasting BSG today was 100 mg/dl. Resumed Lantus 10 units QAM today. * Pre-lunch BSG today was elevated at 211, Novolog carb ratio was tightened. PLAN FOR INPATIENT GLYCEMIC CONTROL: * Hold outpatient oral diabetes medications * Basal insulin: increased * Lantus 10 units SQ QAM and between 0-10 units for HS based BSG scale * Bolus insulin: continued * NovoLog per scale ACHS or Q6hrs while NPO * Goal Range: Low 100 mg/dL - High 140 mg/dL * Correction Factor: 15 mg/dL/unit * Nutritional / Prandial insulin per carb ratio of 1 unit per 6 grams CHO consumed RECOMMENDATION FOR DISCHARGE: * Patient's HbA1C is well controlled as an outpatient and is actually below goal for her. * Recommend following BSGs as an outpatient to determine if patient is having hypoglycemia as an outpatient. * Would not be unreasonable to d/c Amaryl as it has an increased risk of hypoglycemia when paired with insulin.
[2020-07-08] MEDS ORDERED: FUROSEMIDE 40 MG in SYRINGE 0 ML IV ONE (15:00)
[2020-07-08] MEDS ORDERED: ALBUTEROL HFA 8 GM INHALER INH PRN (17:13)
[2020-07-08] MEDS: SENNA 8.6 MG TAB PO SCH (20:15)
[2020-07-08] MEDS: ERTAPENEM SODIUM 1,000 MG in SODIUM CHLORIDE 0.9% 50 ML IV SCH (20:19)
[2020-07-09] MEDS: HEPARIN SOD 5,000 UNIT/0.5 ML VIAL SQ SCH ×3 (04:34→21:27)
[2020-07-09 07:01] LABS: Basophils # (auto) 0.01 K/uL (0-0.2); Basophils % (auto) 0.1 %; Eosinophils # (auto) 0.09 K/uL (0-0.5); Eosinophils % (auto) 1.1 %; Hematocrit (blood only) 31.8 % (37-47); Hemoglobin 10.6 g/dL (12.0-16.0); Immature Granulocytes # (auto) 0.02 K/uL (0.00-0.02); Immature Granulocytes % (auto) 0.2 %; Lymphocytes # (auto) 1.66 K/uL (1.2-3.4); Lymphocytes % (auto) 19.5 %; Mean Corpuscular Hemoglobin 33.3 pg (25-34); Mean Corpuscular Hgb Conc 33.3 g/dL (32-36); Mean Platelet Volume 10.9 fL (7.4-10.4); Monocytes # (auto) 0.82 K/uL (0.11-0.59); Monocytes % (auto) 9.6 %; Neutrophils # (auto) 5.91 K/uL (1.4-6.5); Neutrophils % (auto) 69.5 %; Platelet Count 364 K/uL (130-400); RDW Coefficient of Variation 14.8 % (11.5-14.5); RDW Standard Deviation 54.2 fL (36.4-46.3); Red Blood Count 3.18 M/uL (4.2-5.4); White Blood Count 8.51 K/uL (4.8-10.8)
[2020-07-09 07:31] LABS: Albumin Level 2.2 gm/dl (3.4-5.0); BUN Creatinine Ratio 14.2 (10-20); Calcium 9.2 mg/dl (8.5-10.1); Creatinine Clr Calc Pharmacy 113.7 ml/min; Est GFR (African American) 119.7; Est GFR (Non-African American) 103.3
[2020-07-09 07:34] LABS: Albumin Globulin Ratio 0.5 (0.9-2); Bilirubin,Total 0.5 mg/dl (0.2-1); Globulin 4.2 gm/dl (2.5-4.0); Total Protein 6.4 gm/dl (6.4-8.2)
[2020-07-09] MEDS ORDERED: FUROSEMIDE 40 MG TAB PO ONE (08:00)
--- NOTE | 2020-07-09 08:52 | Hospitalist Progress Note ---
Date of Service July 09, 2020 Assessment & Plan (1) Sepsis: * 2nd to left foot cellulitis, gangrene, osteomyelitis, and septic arthritis of first MTP joint. * Ortho consult with Dr Maldonado much appreciated -on 06/17 s/p extensive surgery on L foot * s/p further debridement/ amputation 07/06. * Echo without endocarditis. * Blood cx's negative * Intra-op wound cx -- proteus with bacteroides. * Appreciate [facility] ID consultation and recs. * Continue IV ertapenam 1gm daily x 6 weeks started on 06/20/20. * PICC line placed in right upper extremity 06/22 * Plans for [facility] at d/c when bed available. CM following (2) Gangrene of left foot: * See above in sepsis. * LLE arterial duplex study without focal occlusion of any specific vessel; diffuse atherosclerosis noted. * Dr Maldonado - OR on 06/17/20, 07/06 * s/p incision and Drainage abscess left first metatarsal phalangeal joint, irrigation and debridement plantar medial neuropathic ulcer first metatarsal phalangeal joint 4 cm x 3 cm x 0.4 cm, irrigation and debridement medial neuropathic ulcer first interphalangeal joint 12 mm x 14 mm x 3 mm, irrigation and debridement necrotic ulcers left great toe 2 separate sites including skin, subcutaneous tissue, fascia and periosteum, left foot tenosynovectomy septic flexor hallucis longus tendon * Intra-op culture with pansensitive proteus & bacteroides * continue Ertapenem for 6 weeks total LD 08/01/2020 * appreciate ortho consult/assistance * dressing changes daily (3) Osteomyelitis: MRI left foot -- * 1. Small focus of osteomyelitis within the distal medial aspect of the proximal phalanx of the left first toe. Additional sites of marrow edema within the left first metatarsal head, base of the proximal phalanx of the distal phalanx consistent with osteitis. * 2. Left first metatarsophalangeal joint effusion with synovial enhancement. No associated bony destruction adjacent to the joint. This suggests synovitis and sterility cannot be assessed by MRI. * 3. Wound along the plantar medial aspect of the left first metatarsophalangeal joint. Soft tissue edema consistent with cellulitis. * s/p extensive surgery L foot by Dr Maldonado 06/17/20 and 07/06 (4) Cellulitis of great toe of left foot: * resolving after surgery, gangrene persists and was taken back to OR 07/06 as above * Post op as above * Echo without obvious SBE. * Blood cx's neg. * Partial weight-bearing left foot only. (5) Shortness of breath: * Likely secondary to diastolic CHF * 07/02 - 2 view chest xray showing Interval progression of the pulmonary edema and small bilateral pleural effusions. * Echo on 06/15 without reduced EF * Diuresed with IV furosemide x 3 days with improvement but then significantly dyspneic on 07/08 - CTA to assess for PE was negative for such - moderate pulmonary edema with moderate bilateral pleural effusions as described above, consolidation within the bilateral lobes posteriorly. This favors compressive atelectasis from the pleural effusions. A pneumonia could also have a similar appearance but is considered less likely * Does not appear to be pna- no leukocytosis, cough or fever * Encourage IS, will give another dose of IV lasix today. Possibly her fluid status is being confounded by intake of po sodium for hyponatremia. Will try decreasing sodium by half to 1g daily and see if she can maintain her sodium level without hanging on to fluid. * May need to consider thoracentesis for effusions if diuresing with Lasix is ineffective. * Received additional lasix 40mg PO 07/09 * Currently 94% on RA and denies SOB currently * Continue to monitor with daily weights/VS (6) Weakness of both legs: * suspect 2nd to sepsis * neuro exam wnl since admission * improved strength since admission * cont PT/OT * will need rehab at d/c as above (7) Diabetes mellitus type 2, uncontrolled: * remains on basal-bolus insulin * had lows on 06/20 * Pharmacy glycemic consult - hypoglycemic again today * Per pharmacy dc recs: Patient's HbA1C is well controlled as an outpatient and is actually below goal for her. * Recommend following BSGs as an outpatient to determine if patient is having hypoglycemia as an outpatient. * Would not be unreasonable to d/c Amaryl as it has an increased risk of hypoglycemia when paired with insulin. (8) Chronic alcohol use: * no evidence of withdrawal * cont thiamine 200mg daily * cont folate 1mg daily * cont MVI (9) Diabetic neuropathy: * Severe. * started gabapentin 200mg TID. * titrated up to 300mg TID on 06/23 --> continue this on discharge (10) Pulmonary nodules/lesions, multiple: * Seen on CT chest earlier this fall. * COVID was negative (antigen test) this admission and on past admission * O2 sats stable in RA * repeat COVID PCR negative as well * needs f/u CT chest in 2-3 months - radiology was unable to comment on the status of the opacities/nodules on her CTA from 07/08 due to pulmonary edema. Patient will need repeat when pulmonary edema is resolved (11) Hypomagnesemia: * repleted and resolved (12) Hyponatremia: * concern for siadh * cortisol wnl * TSH minimally elevated but fT4 wnl * place on sodium 1gm BID - given fluid retention, reduced to 1gm daily, however hypoN common in CHF and will discontinue sodium replacement and follow BMP in AM * continue 1800cc fluid restriction (13) Acute hepatitis: * LFTs are chronically elevated, but much worse at onset of this admission - now much improved, ALT with mild elevation * INR was also worse at 1.6 and now improved to 1.2 * Suspect Acute alcoholic hepatitis. * HepC Ab 05/15 was negative. * Patient was having diarrhea so lactulose was stopped * LFTs almost completely back to normal limits (14) Coagulopathy: * 2nd to acute hepatitis (suspected), possibly with nutritional component as patient had improvement with vitamin K administartion * 1.6 INR at admission. * s/p vitamin K with improved INR to 1.2. (15) Hypertension: * Continue metoprolol * Increased BETZAIDA to 40 mg daily 07/06 * May need to add calcium channel ryan like amlodipine -- will add amlodipine 5mg daily as BP 173/63 * Patient has been hypertensive, utilizing prn hydralazine. She has not had any headache, chest pain, visual changes, nose bleeds or s/s of end organ damage * Continue to monitor (16) Acute metabolic encephalopathy: * resolved * was likely 2nd sepsis * stopped lactulose as she is having a lot of diarrhea (17) Anemia: * s/p 1 unit prcs this admission * fecal occult neg * Will add iron studies/B12/folate to Am labs as never drawn on admission in patient with anemia. MCV >100 in patient with etoh use. Prior B12 actually elevated * Monitor -- hgb stable and continues to improve (18) Hyperkalemia: * iatrogenic * 2nd to K supplement and K-phos supplement * both stopped * hypokalemic and given 40 mEq supplementation as she had further furosemide * K 4.0 on AM labs * BMP in AM (19) Frequent PVCs: * 07/03 - PVCs, intermittent bigem, appears to have resolved. Asymptomatic (20) DVT prophylaxis: * heparin SC TID CM working on placement - to [facility] when ready for dc Admission and Anticipated Discharge Date Admission Date: June 14, 2020 Supervising Physician Co-Signing Physician Notes PA Supervision Note: I did not personally see or examine the patient today, but I verified all [place] points of BRODY Fisher's assessment and plan with the following exceptions/additions: Would continue to diurese daily with IV Lasix which will improve her pleural effusions and improve her hyponatremia -Would also repeat thyroid function tests in 3 to 4 weeks when not acutely ill and consider replacement with levothyroxine 25 mcg once daily if TSH remains elevated Subjective Patient evaluated sitting upright in bed eating lunch. Breathing much improved from days past. No further sob/cough reported. Using IS when she remembers. Pain controlled with ordered medications. Plans for [facility] when bed available. No fever, chills, chest pain, nausea, vomiting, dysuria at this time. Review of Systems Review of Systems: All systems reviewed & are unremarkable except as noted in HPI & below Physical Exam Constitutional: WD/WN, vitals as above cooperative and comfortable; no acute distress Eyes: + anicteric sclerae and PERRL ENMT: mmm Neck: normal visual inspection and trachea midline Respiratory: normal respiratory effort, lungs clear to auscultation Cardiovascular: RRR, no murmur, no edema Gastrointestinal (Abdomen): normal bowel sounds, soft, nontender, no hepatosplenomegaly Musculoskeletal: betzaida/dressing to LLE numbness to distal toes but able to dorsiflex/plantar flex minimally pulses palpable bilaterally dressing to be changed today per her account Skin: warm, dry PICC RUE Neurologic: PERRL, EOMI, accommodation nl, no face palsy, no dysarthria Psychiatric: A+Ox3, euthymic affect Lymphatic: no cervical or axillary lymphadenopathy Results & Data Results & Data ([facility]) Vital Signs (Past 12 Hours) Vital Signs Temp Pulse Pulse Resp BP BP Pulse Ox 07/09/20 07:31 36.9 C 71 18 179/66 H 91 12/13/20 23:22 36.8 C 72 17 147/74 H 93 07/08/20 21:55 36.7 C 74 18 121/64 95 07/08/20 20:54 67 181/74 H Laboratory Results 07/09/20 07/09/20 07/09/20 Range/Units 08:20 06:20 06:20 WBC 8.51 (4.8-10.8) K/uL RBC 3.18 L (4.2-5.4) M/uL Hgb 10.6 L (12.0-16.0) g/dL Hct 31.8 L (37-47) % MCV 100.0 (80-100) fL MCH 33.3 (25-34) pg MCHC 33.3 (32-36) g/dL RDW Std Deviation 54.2 H (36.4-46.3) fL RDW Coeff of Francis 14.8 H (11.5-14.5) % Plt Count 364 (130-400) K/uL MPV 10.9 H (7.4-10.4) fL Immature Gran % (Auto) 0.2 % Neut % (Auto) 69.5 % Lymph % (Auto) 19.5 % Irion % (Auto) 9.6 % Eos % (Auto) 1.1 % Baso % (Auto) 0.1 % Neut # (Auto) 5.91 (1.4-6.5) K/uL Lymph # (Auto) 1.66 (1.2-3.4) K/uL Irion # (Auto) 0.82 H (0.11-0.59) K/uL Eos # (Auto) 0.09 (0-0.5) K/uL Baso # (Auto) 0.01 (0-0.2) K/uL Immature Gran # (Auto) 0.02 (0.00-0.02) K/uL Sodium 134 L (136-145) mmol/L Potassium 4.0 (3.5-5.1) mmol/L Chloride 99 (98-107) mmol/L Carbon Dioxide 30 (21-32) mmol/L Anion Gap 5.0 (3-11) BUN 8 (7-18) mg/dl Creatinine 0.54 L (0.6-1.2) mg/dl Est Cr Clr Drug Dosing 113.7 ml/min Est GFR ( Amer) 119.7 Est GFR (Non-Af Amer) 103.3 BUN/Creatinine Ratio 14.2 (10-20) Glucose 110 H (70-99) mg/dl POC Glucose 124 H (70-99) mg/dl Calcium 9.2 (8.5-10.1) mg/dl Total Bilirubin 0.5 (0.2-1) mg/dl AST 45 H (15-37) U/L ALT 21 (12-78) U/L Alkaline Phosphatase 98 (45-117) U/L Total Protein 6.4 (6.4-8.2) gm/dl Albumin 2.2 L (3.4-5.0) gm/dl Globulin 4.2 H (2.5-4.0) gm/dl Albumin/Globulin Ratio 0.5 L (0.9-2) 07/08/20 07/08/20 07/08/20 Range/Units 20:24 16:37 11:22 WBC (4.8-10.8) K/uL RBC (4.2-5.4) M/uL Hgb (12.0-16.0) g/dL Hct (37-47) % MCV (80-100) fL MCH (25-34) pg MCHC (32-36) g/dL RDW Std Deviation (36.4-46.3) fL RDW Coeff of Francis (11.5-14.5) % Plt Count (130-400) K/uL MPV (7.4-10.4) fL Immature Gran % (Auto) % Neut % (Auto) % Lymph % (Auto) % Irion % (Auto) % Eos % (Auto) % Baso % (Auto) % Neut # (Auto) (1.4-6.5) K/uL Lymph # (Auto) (1.2-3.4) K/uL Irion # (Auto) (0.11-0.59) K/uL Eos # (Auto) (0-0.5) K/uL Baso # (Auto) (0-0.2) K/uL Immature Gran # (Auto) (0.00-0.02) K/uL Sodium (136-145) mmol/L Potassium (3.5-5.1) mmol/L Chloride (98-107) mmol/L Carbon Dioxide (21-32) mmol/L Anion Gap (3-11) BUN (7-18) mg/dl Creatinine (0.6-1.2) mg/dl Est Cr Clr Drug Dosing ml/min Est GFR ( Amer) Est GFR (Non-Af Amer) BUN/Creatinine Ratio (10-20) Glucose (70-99) mg/dl POC Glucose 122 H 113 H 256 H (70-99) mg/dl Calcium (8.5-10.1) mg/dl Total Bilirubin (0.2-1) mg/dl AST (15-37) U/L ALT (12-78) U/L Alkaline Phosphatase (45-117) U/L Total Protein (6.4-8.2) gm/dl Albumin (3.4-5.0) gm/dl Globulin (2.5-4.0) gm/dl Albumin/Globulin Ratio (0.9-2) Diagnostic Findings CTA Chest IMPRESSION: 1. Moderate pulmonary edema with moderate bilateral pleural effusions as described above. 2. Consolidation within the bilateral lobes posteriorly. This favors compressive atelectasis from the pleural effusions. A pneumonia could also have a similar appearance but is considered less likely. PG Care Time/CCT Total # of Minutes Spent Total Time Spent with Patient: Total time spent is greater than 50% in coordination of care (as documented) at patient's floor/unit and/or counseling patient: Coding Level of Care Code 98244 Subseq Hosp Care Lvl 2 Diagnoses Sepsis A41.9 Gangrene of left foot I96 Osteomyelitis M86.9 Cellulitis of great toe of left foot L03.032 Shortness of breath R06.02 Weakness of both legs R29.898 Diabetes mellitus type 2, uncontrolled E11.65 Glycemic state: with hyperglycemia Chronic alcohol use Z72.89 Diabetic neuropathy E11.42 Diabetes mellitus complication detail: diabetic polyneuropathy Diabetes mellitus type: type 2 Pulmonary nodules/lesions, multiple R91.8 Hypomagnesemia E83.42 Hyponatremia E87.1 Acute hepatitis B17.9 Coagulopathy D68.9 Hypertension I10 Hypertension type: essential hypertension Acute metabolic encephalopathy G93.41 Anemia D64.9 Hyperkalemia E87.5 Frequent PVCs I49.3 DVT prophylaxis Z29.9 (1) Diabetic neuropathy Diabetes mellitus complication detail: diabetic polyneuropathy Diabetes mellitus type: type 2 Qualified Code(s): E11.42 - Type 2 diabetes mellitus with diabetic polyneuropathy (2) Diabetes mellitus type 2, uncontrolled Glycemic state: with hyperglycemia Qualified Code(s): E11.65 - Type 2 diabetes mellitus with hyperglycemia (3) Hypertension Hypertension type: essential hypertension Qualified Code(s): I10 - Essential (primary) hypertension
[2020-07-09] MEDS: INSULIN ASPART 100 UNITS/ML 3 ML PEN SC SCH ×4 (08:55→21:23)
[2020-07-09] MEDS: GABAPENTIN 300 MG CAP PO SCH ×3 (08:56→21:25)
[2020-07-09] MEDS: INSULIN GLARGINE SOLOSTAR 100 UNITS/ML 3 ML PEN SC SCH ×2 (08:56→21:24)
[2020-07-09] MEDS: ADVANCED PROBIOTIC 1250 MG CAPSULE PO SCH (08:56)
[2020-07-09] MEDS: lisinopril 40 MG TAB PO SCH (08:57)
[2020-07-09] MEDS: FOLIC ACID 1 MG TAB PO SCH (08:57)
[2020-07-09] MEDS: MULTIVITAMIN TAB PO SCH (08:57)
[2020-07-09] MEDS: METOPROLOL SUCC 25MG EXT REL TAB PO SCH (08:57)
[2020-07-09] MEDS: FERROUS GLUCONATE 324 MG TAB PO SCH ×2 (08:57→19:21)
[2020-07-09] MEDS ORDERED: SODIUM CHLORIDE 1 GM TABLET PO SCH (09:00)
[2020-07-09] MEDS: DOCUSATE SODIUM 100 MG CAP PO SCH ×2 (09:03→21:32)
[2020-07-09] MEDS: THIAMINE HCL 100 MG TAB PO SCH (10:38)
[2020-07-09] MEDS: CHOLECALCIFEROL 1,000 UNITS 25 MCG TAB PO SCH (10:38)
--- NOTE | 2020-07-09 14:02 | Orthopedic Progress Note ---
Date of Service July 09, 2020 Assessment & Plan (1) Cellulitis of great toe of left foot: POD #3 s/p Left foot I&D diabetic neuropathic ulcer, Resection of dry gangrene of the great toe medial aspect, Application of TheraSkin allograft to the left first metatarsophalangeal joint plantar medial foot. -currently has PICC, on IV ertapenam 1gm daily started on 06/20/20 and will continue. -daily dressing changes No further surgery planned at this time. Ortho will sign off at this time. Instructions placed in DC section. Please call with any questions. (2) Osteomyelitis: Admission and Anticipated Discharge Date Admission Date: June 14, 2020 Subjective POD 3 Pt lying in bed awake, alert. Mild soreness in the left foot. No other complaints today. Physical Exam Physical Exam: Dressing removed. [place]in intact. Minimal drainage. No purulence. No erythema. Wound redressed. Results & Data ([facility]) Vital Signs (Past 12 Hours) Vital Signs Temp Pulse Resp BP Pulse Ox 07/09/20 07:31 36.9 C 71 18 179/66 H 91
[2020-07-09] MEDS: amLODIPine BESYLATE 5 MG TAB PO SCH (19:21)
[2020-07-09] MEDS: SENNA 8.6 MG TAB PO SCH (21:25)
[2020-07-09] MEDS: ERTAPENEM SODIUM 1,000 MG in SODIUM CHLORIDE 0.9% 50 ML IV SCH (21:32)
[2020-07-10] MEDS: HEPARIN SOD 5,000 UNIT/0.5 ML VIAL SQ SCH (05:50)
[2020-07-10 06:29] LABS: Basophils # (auto) 0.01 K/uL (0-0.2); Basophils % (auto) 0.1 %; Eosinophils # (auto) 0.12 K/uL (0-0.5); Eosinophils % (auto) 1.7 %; Hematocrit (blood only) 30.6 % (37-47); Hemoglobin 10.3 g/dL (12.0-16.0); Immature Granulocytes # (auto) 0.01 K/uL (0.00-0.02); Immature Granulocytes % (auto) 0.1 %; Lymphocytes # (auto) 1.45 K/uL (1.2-3.4); Mean Corpuscular Hemoglobin 33.3 pg (25-34); Mean Corpuscular Hgb Conc 33.7 g/dL (32-36); Mean Platelet Volume 10.8 fL (7.4-10.4); Monocytes # (auto) 0.82 K/uL (0.11-0.59); Monocytes % (auto) 11.8 %; Neutrophils # (auto) 4.51 K/uL (1.4-6.5); Neutrophils % (auto) 65.3 %; Platelet Count 339 K/uL (130-400); RDW Coefficient of Variation 14.7 % (11.5-14.5); RDW Standard Deviation 53.1 fL (36.4-46.3); Red Blood Count 3.09 M/uL (4.2-5.4); White Blood Count 6.92 K/uL (4.8-10.8)
[2020-07-10 06:56] LABS: Albumin Level 2.1 gm/dl (3.4-5.0); BUN Creatinine Ratio 12.9 (10-20); Bilirubin Direct 0.2 mg/dl (0-0.2); Calcium 8.8 mg/dl (8.5-10.1); Creatinine Clr Calc Pharmacy 113.4 ml/min; Est GFR (African American) 122.8; Est GFR (Non-African American) 105.9; Potassium 3.9 mmol/L (3.5-5.1)
[2020-07-10 07:06] LABS: Bilirubin,Total 0.5 mg/dl (0.2-1); Ferritin 423.7 ng/ml (8-388); Total Protein 6.4 gm/dl (6.4-8.2)
[2020-07-10 07:25] LABS: Folate (Folic Acid) > 20.00 ng/ml (>5.38); Vitamin B12 634 pg/ml (193-986)
[2020-07-10] MEDS: hydrALAZINE HCL 20 MG/ML VIAL IV PRN (08:21)
[2020-07-10] MEDS: CHOLECALCIFEROL 1,000 UNITS 25 MCG TAB PO SCH (08:56)
[2020-07-10] MEDS: THIAMINE HCL 100 MG TAB PO SCH (08:57)
[2020-07-10] MEDS: lisinopril 40 MG TAB PO SCH (08:57)
[2020-07-10] MEDS: amLODIPine BESYLATE 5 MG TAB PO SCH (08:57)
[2020-07-10] MEDS: GABAPENTIN 300 MG CAP PO SCH (08:57)
[2020-07-10] MEDS: MULTIVITAMIN TAB PO SCH (08:57)
[2020-07-10] MEDS: METOPROLOL SUCC 25MG EXT REL TAB PO SCH (08:57)
[2020-07-10] MEDS: FOLIC ACID 1 MG TAB PO SCH (08:57)
[2020-07-10] MEDS: FERROUS GLUCONATE 324 MG TAB PO SCH (08:57)
[2020-07-10] MEDS: ADVANCED PROBIOTIC 1250 MG CAPSULE PO SCH (08:58)
[2020-07-10] MEDS: DOCUSATE SODIUM 100 MG CAP PO SCH (08:58)
[2020-07-10] MEDS: INSULIN ASPART 100 UNITS/ML 3 ML PEN SC SCH (09:01)
[2020-07-10] MEDS: INSULIN GLARGINE SOLOSTAR 100 UNITS/ML 3 ML PEN SC SCH (09:01)
[2020-07-10] MEDS ORDERED: FUROSEMIDE 20 MG in SYRINGE 0 ML IV ONE (10:30)
--- NOTE | 2020-07-10 10:58 | Discharge Summary ---
Date of Service July 10, 2020 Admission HPI Per Admitting Provider 59yo female - well known to me from 04/2020 admission for etoh intoxication - with history of alcoholism, uncontrolled DM, and HTN presents with complaints of difficulty ambulating and left foot infection. Ms Marquez is a very poor historian and was unable to pinpoint specific time periods for her complaints. She did finally state that she thought the walking got worse over the last 3-4 days. She stated "my thighs don't want to work." Multiple times she kept blaming her symptoms on "her neuropathy." I asked if she had any numbness of the legs and initially she replied no. However, later in the encounter, she mentioned having numbness in her thighs and buttocks. Denied any bowel or bladder incontinence. Ms Marquez denied any fever, chills, loss of appetite, loss of taste or smell, nasal congestion, sore throat, dyspnea. She has a cough but it is unchanged/chronic. Denied abdominal pain, nausea, emesis, diarrhea. Last etoh intake was about 1 month ago. However, she told another member of the care team that she last drank 2 weeks ago. During the last hospital stay she told us that she was essentially homeless and that she had been living out of her car. However, tonight she said she has been living with her sister. Admission Exam Per Admitting Provider Constitutional: + ill appearing and + frail appearing; + not well developed, + not well nourished, no acute distress and + not healthy appearing Eyes: PERRL ENMT: Mouth: + poor dentition; oral mucous membranes not dry Neck: trachea midline, no thyromegaly Respiratory: normal respiratory effort, lungs clear to auscultation Cardiovascular: Rate/Rhythm: regular rate and regular rhythm Heart Sounds: normal S1, normal S2 and + murmur (3/6 holosystolic RUSB/apex) Vessels: posterior tibial pulses present (1+ b/l ), dorsalis pedis pulses present (1+ b/l) and popliteal pulses present (1+ b/l ); no JVD Extremities: normal capillary refill (about 2 seconds b/l feet ) Gastrointestinal (Abdomen): Inspection/Auscultation: normal bowel sounds; abdomen not distended Percussion/Palpation: abdomen soft and + hepatomegaly; abdomen nontender Musculoskeletal: neuropathic changes of b/l feet Skin: left foot: great toe with absent toenail. Entire first toe is erythematous, swollen, and warm to touch. Cap refill about 2 seconds. There is a superficial ulcer on the medial aspect of the toe with no drainage. There is black eschar with odor over the head of the first metatarsal on plantar side of foot. right foot: multiple dark papules/macules on sole of foot; embolic phenomenon?? numerous abrasions and scabbed lesions over legs, arms, etc. numerous tattoos present on arms. Neurologic: hip flexion 5/5 bilaterally. knee extension 5/5 b/l. ankle dorsiflexion/plantarflexion 5/5. DTRs: 1-2+ patellar b/l. 0 achilles b/l. arms 1+ b/l Psychiatric: Orientation: alert and oriented x 3 no evidence of intoxication Lymphatic: no cervical lymphadenopathy Principal Diagnosis Sepsis Discharge Exam Constitutional WD/WN, vitals as above cooperative and comfortable; no acute distress Eyes + anicteric sclerae and PERRL ENMT mmm Neck normal visual inspection and trachea midline Respiratory normal respiratory effort, lungs clear to auscultation Auscultation: + diminished lung sounds (bases) Cardiovascular RRR, no murmur, no edema Gastrointestinal (Abdomen) normal bowel sounds, soft, nontender, no hepatosplenomegaly Musculoskeletal betzaida/dressing to LLE numbness to distal toes but able to dorsiflex/plantar flex pulses palpable bilaterally NVI Skin warm, dry PICC to RUE Neurologic PERRL, EOMI, accommodation nl, no face palsy, no dysarthria Psychiatric A+Ox3, euthymic affect Lymphatic no cervical or axillary lymphadenopathy Discharge Data Allergies Allergy/AdvReac Type Severity Reaction Status Date / Time No Known Allergies Allergy Verified 06/14/20 15:58 Consultations 06/14/20 16:37 ED Decision to Admit Stat 06/14/20 20:27 Consult Case Management - Discharge Planning Routine 06/15/20 10:54 Consult Orthopedic Surgery Routine 06/17/20 12:05 Consult Case Management - Discharge Planning Routine 06/20/20 06:11 Consult Infectious Diseases Routine 06/25/20 16:20 Consult Lung Nodule Program Routine Procedures Performed Operation Date: 06/17/20 12:00 Actual Procedures p Incision and Drainage abscess left first metatarsal phalangeal joint, irrigation and debridement plantar medial neuropathic ulcer first metatarsal phalangeal joint 4 cm x 3 cm x 0.4 cm, irrigation and debridement medial neuropathic ulcer first interphalangeal joint 12 mm x 14 mm x 3 mm, irrigation and debridement necrotic ulcers left great toe 2 separate sites including skin, subcutaneous tissue, fascia and periosteum, left foot tenosynovectomy septic flexor hallucis longus tendon, and (Left) (Left) - Alli Maldonado DO Operation Date: 06/28/20 13:50 <No data on this case meets the specified criteria> Operation Date: 07/06/20 11:20 Actual Procedures p Left Great Toe Irrigation and Debridement, Excised Diabetic Neuropathic Ulcer [id number], Dry Gangrene Great Toe, Debridement of skin, subcutaneous, fascia, flexor tendon, joint capsule, and first metatarsal head. Application of theraskin [id number](Left) - Alli Maldonado DO Ordered Studies 06/15 ECHO 06/14/20 13:26 CT angio head w con Stat CT angio neck with con Stat CT head/brain wo con Stat 06/14/20 20:27 US arterial duplex LE LT Routine 06/15/20 04:33 MR foot LT wo/w con Routine 07/08/20 11:38 CT angio chest PE protocol Routine Hospital Course (1) Sepsis: * 2nd to left foot cellulitis, gangrene, osteomyelitis, and septic arthritis of first MTP joint. * s/p OR 06/17 and 07/06 for incision and Drainage abscess left first metatarsal phalangeal joint, irrigation and debridement plantar medial neuropathic ulcer first metatarsal phalangeal joint 4 cm x 3 cm x 0.4 cm, irrigation and debridement medial neuropathic ulcer first interphalangeal joint 12 mm x 14 mm x 3 mm, irrigation and debridement necrotic ulcers left great toe 2 separate sites including skin, subcutaneous tissue, fascia and periosteum, left foot tenosynovectomy septic flexor hallucis longus tendon with Dr. Maldonado * ECHO without endocarditis * Blood cultures negative FINAL * Intra-op wound culture with proteus mirabilis, bacteroides fragilis -- pansensitive * PICC line placed RUE 06/22 * Ertapenem 1gm IV daily x 6 weeks -- start 06/20 end 08/01/20. Weekly labs * Set up for [facility] at discharge for rehab (2) Gangrene of left foot: * See above in sepsis. * LLE arterial duplex study without focal occlusion of any specific vessel; diffuse atherosclerosis noted. * daily dressing changes (3) Osteomyelitis: MRI left foot -- * 1. Small focus of osteomyelitis within the distal medial aspect of the proximal phalanx of the left first toe. Additional sites of marrow edema within the left first metatarsal head, base of the proximal phalanx of the distal phalanx consistent with osteitis. * 2. Left first metatarsophalangeal joint effusion with synovial enhancement. No associated bony destruction adjacent to the joint. This suggests synovitis and sterility cannot be assessed by MRI. * 3. Wound along the plantar medial aspect of the left first metatarsophalangeal joint. Soft tissue edema consistent with cellulitis. * s/p extensive surgery L foot by Dr Maldonado 06/17/20 and 07/06 * Ertapenem as above (4) Cellulitis of great toe of left foot: * resolving after surgery, gangrene persisted and was taken back to OR 07/06 as above * Post op as above * Echo without obvious SBE. * Blood cx's neg. * Partial weight-bearing left foot only. (5) Shortness of breath: * Likely secondary to diastolic CHF * 07/02 - 2 view chest xray showing Interval progression of the pulmonary edema and small bilateral pleural effusions. * Echo on 06/15 without reduced EF * Diuresed with IV furosemide x 3 days with improvement but then significantly dyspneic on 07/08 - CTA to assess for PE was negative for such - moderate pulmonary edema with moderate bilateral pleural effusions as described above, consolidation within the bilateral lobes posteriorly. This favors compressive atelectasis from the pleural effusions. A pneumonia could also have a similar appearance but is considered less likely * Does not appear to be pna- no leukocytosis, cough or fever * Encouraged IS, will give another dose of IV lasix today. * Discontinued sodium -- previously had been getting salt tablets during admission for hyponatremia, when hyponatremia likely due to volume overload/congestive changes * Received additional lasix 40mg PO 07/09 Day of discharge -- 96% on RA and denied SOB, but still with effusions and rec continued daily lasix 20mg daily (also will help with hyponatremia) (6) Weakness of both legs: * suspect 2nd to sepsis * neuro exam wnl since admission * improved strength since admission * rehab as above (7) Diabetes mellitus type 2, uncontrolled: * remains on basal-bolus insulin * had lows on 06/20 * Pharmacy glycemic consult - hypoglycemic events with A1c below goal * Discontinued home amaryl (8) Chronic alcohol use: * no evidence of withdrawal * thiamine 200mg daily, folate, MVI daily (9) Diabetic neuropathy: * Severe. * started gabapentin 200mg TID and titrated up to 300mg TID on 06/23 --> con tinued this on discharge (10) Pulmonary nodules/lesions, multiple: * Seen on CT chest earlier this fall. * COVID was negative (antigen test) this admission and on past admission * O2 sats stable in RA * repeat COVID PCR negative as well * needs f/u CT chest in 2-3 months - radiology was unable to comment on the status of the opacities/nodules on her CTA from 07/08 due to pulmonary edema. Patient will need repeat when pulmonary edema is resolved (11) Hypomagnesemia: * repleted and resolved (12) Hyponatremia: * initially with concern for siadh although cortisol, TSH (minimally elevated with normal FT4) without significant finding * Patient was placed on oral sodium tablets and Na worsened --> discussed with patient low sodium common in CHF * Diuresed and continued daily lasix 20mg daily with improvement of sodium (13) Acute hepatitis: * LFTs are chronically elevated, but much worse at onset of this admission - now much improved, ALT with mild elevation * INR was also worse at 1.6 and now improved to 1.2 * Suspect Acute alcoholic hepatitis. * HepC Ab 05/15 was negative. * Patient was having diarrhea so lactulose was stopped * LFTs almost completely back to normal limits -- follow up outpt (14) Coagulopathy: * 2nd to acute hepatitis (suspected), possibly with nutritional component as patient had improvement with vitamin K administartion * 1.6 INR at admission. * s/p vitamin K with improved INR to 1.2. (15) Hypertension: * Continued metoprolol * May need to add calcium channel ryan like amlodipine -- will add amlodipine 5mg daily as BP 173/63 * Patient had been hypertensive, utilizing prn hydralazine. She has not had any headache, chest pain, visual changes, nose bleeds or s/s of end organ damage * Increased BETZAIDA to 40 mg daily 07/06, added amlodipine 5mg daily * BP improved to 143/68 at discharge (16) Acute metabolic encephalopathy: * resolved. likely 2nd sepsis. lactulose given (17) Anemia: * s/p 1 unit prcs this admission * fecal occult neg * iron studies -- c/w chronic disease. B12 elevated. Folate wnl (18) Hyperkalemia: * iatrogenic * 2nd to K supplement and K-phos supplement * both stopped * K 3.9 (19) Frequent PVCs: * 07/03 - PVCs, intermittent bigem, appears to have resolved. Asymptomatic (20) DVT prophylaxis: * heparin SC TID [facility] at discharge Total Time Total Time Spent Total Time Spent (In Minutes): 70 Discharge Plan Discharge Items Patient Disposition: Transfer Intermediate Fac Reason For Visit: L GREAT TOE ULCER W/ GANGRENE Discharge Diagnosis: Sepsis with Gangrenous L Great Toe Goals: You have been hospitalized for an urgent problem which required surgery. During your stay at [facility], we have made an effort to correct the problem that brought you to the hospital while keeping you as comfortable as possible. Surgery and medications were used to bring your condition under control and your discharge instructions will include directions for any medications you should take after leaving the hospital. Please make sure to follow the advice of your surgeon regarding follow up with the surgeon and with your primary care provider. Activity: As commented below Activity Comment: advance with therapy Non-emergency contact: Primary Care Provider and Surgeon Call non-emergency contact if: you have any medication questions, your symptoms worsen and your pain is not controlled Follow-up/Referrals: Alli Maldonado DO [Surgeon] - (10-14 days) PCP,NO [Primary Care Provider] - Diet: Carb Consistent or DM2 Fluids: 1800ml (7 cups) Addtl Attending Provider Instructions: You have been hospitalized for an infection of your left great toe which was evaluated by orthopedics and you underwent surgery for resection. You will continue Heparin SQ for DVT prophylaxis for a total of 4 weeks, which will be until August 03, 2020. You should also follow up with wound care to monitor your progress. The bacteria was isolated and you were evaluated by Infectious Disease, who recommended 6 weeks of IV Ertapenem, daily, to be completed on August 01, 2020. You will need weekly CMP, CBC, ESR, CRP while on this medication. Please follow up with Dr. Maldonado in the next 10-14 days for wound check. Dressings will need to be changed daily. You are being sent home with increased dose of gabapentin to help with pain during this acute period. You have also been started on amlodipine daily to help with your blood pressure, which has overal improved with medications. Please continue to work with therapy at rehab to improve your functional capacity. Please follow up with both Dr. Maldonado and primary care (you will need set up with one at discharge from [facility] [place]) in the next 1-2 weeks to monitor your progress. You will need CT chest in 2-3 months to monitor nodules which were previously unable to be commented on by radiology. Please return to the emergency department with any worsening pain, fever, shortness of breath, or for any other symptoms that are concerning for you. It has been a pleasure being a part of the medical team providing for you while you have been in the hospital. Take care! Addtl Rn Pain Management Provider Instructions: Heel weightbearing only on the left foot. Use boot or cast shoe when ambulating. Daily dressing changes to the left foot. Follow up with Dr Maldonado in 10-14 days for wound check. [phone] Pending Studies at Discharge: Yes Studies:: Blood cultures- negative to date Stand-Alone Forms: My [facility] Skilled Items Patient informed of condition?: Yes DNR: No Discharge Level of Care: Skilled Communicable Disease: No Discharge Prognosis: Improving Lines: PICC Urinary Catheter: No Medications and DC Order Prescriptions: New heparin, porcine (PF) 5,000 unit/0.5 mL Syringe 5,000 unit subcut Q8 24 Days Qty: 36 RF: 0 ferrous gluconate 324 mg (38 mg iron) Tablet 324 mg PO BIDM 14 Days Qty: 14 RF: 0 acetaminophen 325 mg Tablet 650 mg PO Q6H PRN (Reason: fever or pain) 14 Days RF: 0 amlodipine [Norvasc] 5 mg Tablet 5 mg PO QAM 30 Days Qty: 30 RF: 0 bisacodyl 10 mg Suppository 10 mg VA DAILY PRN (Reason: constipation) 7 Days RF: 0 docusate sodium 100 mg Capsule 100 mg PO BID 7 Days Qty: 14 RF: 0 gabapentin 300 mg Capsule 300 mg PO TID 30 Days Qty: 90 RF: 0 metoprolol succinate 25 mg Tablet Extended Release 24 Hr 25 mg PO DAILY 30 Days Qty: 30 RF: 0 lisinopril [Zestril] 40 mg Tablet 40 mg PO DAILY 30 Days Qty: 30 RF: 0 oxycodone 5 mg Tablet 5 - 10 mg PO Q4H PRN (Reason: pain) Qty: 12 RF: 0 ertapenem 1 gram recon soln 1 g IM DAILY 22 Days RF: 0 furosemide [Lasix] 20 mg tablet 20 mg PO DAILY Qty: 30 RF: 0 Continued Lantus U-100 Insulin 100 unit/mL solution 20 unit SUBCUT HS RF: 0 metformin 1,000 mg tablet 1,000 mg PO BIDM RF: 0 cholecalciferol (vitamin D3) [Vitamin D3] 25 mcg (1,000 unit) Tablet 2,000 unit PO DAILY RF: 0 loperamide 2 mg capsule See Rx Instructions .ROUTE .COMPLEX MDD 16 MG/24 HOURS PRN (Reason: Diarrhea) RF: 0 Discontinued metoprolol succinate 25 mg tablet extended release 24 hr 25 mg PO DAILY Qty: 30 RF: 1 glimepiride 2 mg tablet 2 mg PO QAM RF: 0 lisinopril 10 mg tablet 10 mg PO DAILY RF: 0 Discharge Orders: Discharge Order (Routine); Ordered 07/10/20 Ordered By: Veena Quarles/Other Patient Handouts: Managing Type 2 Diabetes Admission Data Admit Date/Time: 06/14/20 18:15 Attending Provider: Domi Genao Admit Provider: Alli Maldonado Primary Care Provider: PCP,NO Other Providers: [facility] ; [facility] ; [facility], ; Salvador Beltran ; Sanya Crawford ; Alli Maldonado ; Willis Villatoro ; Gurvinder Amaro ; Raffy Roberto I. ; Diallo Taylor II ; Nimco Angela ; Axel Escobedo Other Interventions: Discharge Summary Assessment (RN) Last Done: 07/10/20 12:06 Supervising Physician Co-Signing Physician Notes PA Supervision Note: I personally saw and examined the patient. I verified all [place] points and agree with BRODY Fisher with the following exceptions and/or additions: Patient doing well on the day of discharge. Denies any complaints. Vitals reviewed NAD, sitting in wheelchair ready to go RRR, no MGR Lungs clear to auscultation bilaterally, no labored breathing Left foot wrapped in dressing with splint 60-year-old female here with prolonged hospital stay for left foot gangrene osteomyelitis Stable for discharged home on IV prolonged antibiotics Continue Lasix 20 mg p.o. once daily -Would also repeat thyroid function tests in 3 to 4 weeks when not acutely ill and consider replacement with levothyroxine 25 mcg once daily if TSH remains elevated Coding Level of Care Code D/C Day Management >30 mins Diagnoses Sepsis A41.9 Gangrene of left foot I96 Osteomyelitis M86.9 Cellulitis of great toe of left foot L03.032 Shortness of breath R06.02 Weakness of both legs R29.898 Diabetes mellitus type 2, uncontrolled E11.65 Glycemic state: with hyperglycemia Chronic alcohol use Z72.89 Diabetic neuropathy E11.42 Diabetes mellitus complication detail: diabetic polyneuropathy Diabetes mellitus type: type 2 Pulmonary nodules/lesions, multiple R91.8 Hypomagnesemia E83.42 Hyponatremia E87.1 Acute hepatitis B17.9 Coagulopathy D68.9 Hypertension I10 Hypertension type: essential hypertension Acute metabolic encephalopathy G93.41 Anemia D64.9 Hyperkalemia E87.5 Frequent PVCs I49.3 DVT prophylaxis Z29.9
--- NOTE | 2020-07-10 11:23 | Pharmacy Report ---
Glycemic Control Progress Note - Date of Service July 10, 2020 - Scope Glycemic Pharmacist consulted for glycemic control to write orders per [facility] inpatient glycemic control protocol. - Objective Accuchecks BSG(last 24 hours):: 07/09/20 07/09/20 07/09/20 12:13 17:19 20:31 Glucose POC Glucose 134 H 95 146 H 07/10/20 07/10/20 06:03 08:12 Glucose 128 H POC Glucose 150 H HbA1c:: Hemoglobin A1c 5.7 % (4.5-5.6) H 07/03/20 05:54 - Recent Pertinent Medications The patient is currently receiving: * Basal insulin: Lantus 10 units every 24 hours * Correctional Insulin: Novolog Correction per scale ACHS Goal Range: Low 110 mg/dL - High 140 mg/dL Correction Factor: 15 mg/dL/unit * Prandial insulin: Per carb ratio of 1 unit per 6 grams CHO consumed - Outpatient Anti-Diabetic Meds Amaryl 2 mg qAM Lantus 20 units HS metformin 1 gm PO BID - Assessment & Plan ASSESSMENT: * See progress note from 07/03/20 for more background info, in short: * Pt receiving SQ basal bolus insulin regimen for hyperglycemia secondary to baseline DM (outpatient regimen on hold) and infection (currently on Invanz) * Patient is currently receiving an average of 29 units of insulin per day * 10 units of basal insulin * 19 units of prandial/correctional insulin * BSGs ranging 95 - 146 mg/dl over the past 24hrs * Changes needed to insulin regimen: * AM Fasting BSG = 150 mg/dl. This is in goal range for patient based on inpatient targets and co-morbidities. Therefore Basal insulin will be continued at Lantus 10 units/day. * Post-prandial BSGs are in range therefore no changes needed to CF/CR. * Total daily dose = ~30-40 units. PLAN FOR INPATIENT GLYCEMIC CONTROL: * Continuing Lantus 10 units SQ qAM * Continuing correction factor of 15 mg/dl/unit * Continuing / changing carb ratio to 1 unit per [] grams CHO consumed * Continuing / changing goal range to Low [] mg/dL - High [] mg/dL RECOMMENDATIONS FOR DISCHARGE: * Patient's HbA1C is well controlled as an outpatient and is actually below goal for her. * Recommend following BSGs as an outpatient to determine if patient is having hypoglycemia as an outpatient. * Would not be unreasonable to d/c Amaryl as it has an increased risk of hypoglycemia when paired with insulin. Thank you.
== END 2020-07-10 13:06 | DRG 853 ==
LOC: ED 13:11 → SUATTDRO 18:15 → 2S 18:15 → 2N 06-21 01:55 → 3N 07-08 21:41

== ENCOUNTER 2021-10-20 18:08 | Inpatient (IN) ==
[2021-10-20] MEDS ORDERED: FUROSEMIDE 40 MG/4 ML VIAL IV ONE (18:33)
[2021-10-20 18:57] LABS: Basophils # (auto) 0.02 K/uL (0-0.2); Basophils % (auto) 0.3 %; Eosinophils % (auto) 1.3 %; Hematocrit (blood only) 33.7 % (37-47); Hemoglobin 11.1 g/dL (12.0-16.0); Immature Granulocytes # (auto) 0.02 K/uL (0.00-0.02); Immature Granulocytes % (auto) 0.3 %; Lymphocytes # (auto) 1.96 K/uL (1.2-3.4); Lymphocytes % (auto) 25.8 %; Mean Corpuscular Hgb Conc 32.9 g/dL (32-36); Mean Corpuscular Volume 94.1 fL (80-100); Mean Platelet Volume 10.8 fL (7.4-10.4); Monocytes # (auto) 0.93 K/uL (0.11-0.59); Monocytes % (auto) 12.2 %; Neutrophils # (auto) 4.58 K/uL (1.4-6.5); Neutrophils % (auto) 60.1 %; Platelet Count 276 K/uL (130-400); RDW Coefficient of Variation 12.7 % (11.5-14.5); RDW Standard Deviation 43.5 fL (36.4-46.3); Red Blood Count 3.58 M/uL (4.2-5.4); White Blood Count 7.61 K/uL (4.8-10.8)
--- NOTE | 2021-10-20 18:59 | Emergency Department Note ---
History of Present Illness General Chief complaint: Cardiac Assessment Stated complaint: HBP, HEART FAILURE, ADEMA, Time Seen by Provider: 10/20/21 18:22 Source: patient Mode of arrival: ambulatory Limitations: no limitations History of Present Illness Provider complaint: Trouble breathing, edema Onset (ago): day(s) 10 Exacerbated By: + movement Associated symptoms: + cough and + shortness of breath; no chest pain, no fever/chills, no headaches or no nausea/vomiting Treatments prior to arrival: other This is a 61-year-old female presents emergency department complaining of increased shortness of breath and worsening edema. Patient states proximately 10 days ago she noticed some slight increased swelling in bilateral lower extremities. She states this slowly continued to worsen and was developing more proximally in her bilateral lower extremities. She states she eventually went to the [facility] as this progressed and they started her on furosemide 20 mg daily. She states she has been taking this in addition to her routine medications for her blood pressure and diabetes however her symptoms were not im proving. She began to notice that she was more short of breath than usual with any exertion. She states she then noticed increased abdominal distention and sense of swelling in her proximal bilateral lower extremities. She states in the last few days she is even felt short of breath at rest. She denies chest pain, fevers or chills, worsening cough, headaches. Patient states she has been told she had congestive heart failure recently and has a history of mitral valve problems. Patient denies any prior heart attack. Patient denies other chronic or ongoing use of diuretics. Pt seen during a time of high acuity and national emergency pandemic while wearing PPE. Home Medications Medication Instructions Recorded Confirmed Type acetaminophen 650 mg 650 mg PO Q12H 10/20/21 10/20/21 History tablet,extended release (Tylenol Arthritis Pain) albuterol sulfate 2.5 mg INHALATION QID PRN 10/20/21 10/20/21 History furosemide 20 mg tablet (Lasix) 20 mg PO BID 10/20/21 10/20/21 History insulin NPH isoph U-100 human 100 16 unit SUBCUT HS 10/20/21 10/20/21 History unit/mL subcutaneous suspension (Novolin N NPH U-100 Insulin isophane) insulin NPH isoph U-100 human 100 18 unit SUBCUT QAM 10/20/21 10/20/21 History unit/mL subcutaneous suspension (Novolin N NPH U-100 Insulin isophane) levothyroxine 25 mcg tablet 25 mcg PO DAILY 10/20/21 10/20/21 History metoprolol tartrate 25 mg tablet 12.5 mg PO BID 10/20/21 10/20/21 History Allergies Allergy/AdvReac Type Severity Reaction Status Date / Time No Known Allergies Allergy Verified 10/20/21 19:28 Past Med/Surg History Medical History (Updated 10/23/21 @ 02:29 by Christine Mujica DO) Acute head injury Acute hyponatremia Avulsed toenail Diabetes Diabetic neuropathy Hypertension Hypokalemia Hypomagnesemia Hypothyroid Tinea pedis Surgical History (Updated 10/20/21 @ 22:46 by Ginger Roberto DO) History of amputation Family History Father Dementia in his 80s Mother , in her 70s Diabetes Social History Smoking Status: Former smoker Tobacco Type: Cigarettes Cigarettes Per Day: 20; Smoking End Date: 3 months ago; Second Hand Exposure: Yes; Do You Dip or Chew Tobacco: No; Tobacco Cessation Education Requested by Patient: No Hx Alcohol Use: Yes Alcohol type: hard liquor Alcohol Intake Frequency Comment: daily, at least 3 shots Hx Substance Use: No Preferred Language: Welsh Communication Ability: Effective 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 Beliefs That Will Affect Care: None marital status: Single Current Living Situation: Other Current Living Situation Comment: inmate current occupational status: disabled How many Children do You have: 1 How many Children do You have Comment: son Feels Safe at Home: Yes Assistive Devices: Denture - Upper, Denture - Lower and Glasses Review of Systems A total of 10 systems reviewed and were otherwise negative All systems reviewed & are unremarkable except as noted in HPI & below Physical Exam Vital Signs Vital Signs - 24 hr 10/20/21 18:10 10/20/21 18:51 10/20/21 19:00 Temperature 36.7 C Temperature Source Temporal Artery Scan Pulse Rate 87 85 83 Pulse Rate from SpO2 Sensor 82 83 Respiratory Rate 16 28 H 23 Respiratory Effort / Characteristics Non-Labored Respiratory Depth Normal Blood Pressure 204/96 H 252/106 H Blood Pressure [Right Arm] Blood Pressure Mean 132 154 Blood Pressure Mean [Right Arm] Pulse Oximetry 98 100 100 Oxygen Delivery Method Sepsis Recent Fever Within 48 Hours No Sepsis New/Unexplained Change in Mental Status N/A Sepsis Action Taken by Nursing No Action Required 10/20/21 19:10 10/20/21 19:13 10/20/21 19:15 Temperature Temperature Source Pulse Rate 80 81 Pulse Rate from SpO2 Sensor 80 82 Respiratory Rate 24 14 21 Respiratory Effort / Characteristics Respiratory Depth Normal Blood Pressure Blood Pressure [Right Arm] Blood Pressure Mean Blood Pressure Mean [Right Arm] Pulse Oximetry 97 97 Oxygen Delivery Method Sepsis Recent Fever Within 48 Hours Sepsis New/Unexplained Change in Mental Status Sepsis Action Taken by Nursing 10/20/21 19:20 10/20/21 19:26 10/20/21 19:30 Temperature Temperature Source Pulse Rate 84 84 80 Pulse Rate from SpO2 Sensor 83 Respiratory Rate 27 H 30 H 19 Respiratory Effort / Characteristics Respiratory Depth Blood Pressure 261/97 H Blood Pressure [Right Arm] Blood Pressure Mean 151 Blood Pressure Mean [Right Arm] Pulse Oximetry 99 Oxygen Delivery Method Sepsis Recent Fever Within 48 Hours Sepsis New/Unexplained Change in Mental Status Sepsis Action Taken by Nursing 10/20/21 19:35 10/20/21 19:40 10/20/21 19:45 Temperature Temperature Source Pulse Rate 80 69 67 Pulse Rate from SpO2 Sensor Respiratory Rate 18 24 26 H Respiratory Effort / Characteristics Respiratory Depth Blood Pressure 203/97 H Blood Pressure [Right Arm] Blood Pressure Mean 132 Blood Pressure Mean [Right Arm] Pulse Oximetry Oxygen Delivery Method Sepsis Recent Fever Within 48 Hours Sepsis New/Unexplained Change in Mental Status Sepsis Action Taken by Nursing 10/20/21 19:50 10/20/21 19:55 10/20/21 20:00 Temperature Temperature Source Pulse Rate 68 71 70 Pulse Rate from SpO2 Sensor Respiratory Rate 24 24 26 H Respiratory Effort / Characteristics Respiratory Depth Blood Pressure 223/80 H 225/86 H Blood Pressure [Right Arm] Blood Pressure Mean 127 132 Blood Pressure Mean [Right Arm] Pulse Oximetry Oxygen Delivery Method Sepsis Recent Fever Within 48 Hours Sepsis New/Unexplained Change in Mental Status Sepsis Action Taken by Nursing 10/20/21 20:03 10/20/21 20:07 10/20/21 20:10 Temperature Temperature Source Pulse Rate 73 77 74 Pulse Rate from SpO2 Sensor Respiratory Rate 27 H 28 H 23 Respiratory Effort / Characteristics Respiratory Depth Blood Pressure 245/99 H 208/53 H 235/86 H Blood Pressure [Right Arm] Blood Pressure Mean 147 104 135 Blood Pressure Mean [Right Arm] Pulse Oximetry Oxygen Delivery Method Sepsis Recent Fever Within 48 Hours Sepsis New/Unexplained Change in Mental Status Sepsis Action Taken by Nursing 10/20/21 20:15 10/20/21 20:20 10/20/21 20:25 Temperature Temperature Source Pulse Rate 72 72 73 Pulse Rate from SpO2 Sensor Respiratory Rate 24 21 24 Respiratory Effort / Characteristics Respiratory Depth Blood Pressure 236/85 H Blood Pressure [Right Arm] Blood Pressure Mean 135 Blood Pressure Mean [Right Arm] Pulse Oximetry Oxygen Delivery Method Sepsis Recent Fever Within 48 Hours Sepsis New/Unexplained Change in Mental Status Sepsis Action Taken by Nursing 10/20/21 20:30 10/20/21 20:32 Temperature Temperature Source Pulse Rate 71 Pulse Rate from SpO2 Sensor Respiratory Rate 26 H 14 Respiratory Effort / Characteristics Respiratory Depth Normal Blood Pressure 207/77 H Blood Pressure [Right Arm] 190/96 H Blood Pressure Mean 120 Blood Pressure Mean [Right Arm] 127 Pulse Oximetry 96 Oxygen Delivery Method Room Air Sepsis Recent Fever Within 48 Hours Sepsis New/Unexplained Change in Mental Status Sepsis Action Taken by Nursing GENERAL: alert, well appearing, well nourished, no distress, non-toxic, walks slowly with a walker EYE EXAM: normal conjunctiva, PERRL and EOM's grossly intact OROPHARYNX: no exudate, no erythema, lips, buccal mucosa, and tongue normal and mucous membranes are moist NECK: supple, no nuchal rigidity, no adenopathy, non-tender LUNGS: Decreased bilaterally to auscultation. Normal chest wall mechanics, no w/r/r HEART: no murmurs, S1 normal and S2 normal ABDOMEN: abdomen soft, non-tender, normo-active bowel sounds, no masses, no rebound or guarding. BACK: Back is symmetrical on inspection and there is no deformity, no midline tenderness, no CVA tenderness. SKIN: no rashes and no bruising UPPER EXTREMITIES: upper extremities are grossly normal. FROM, nml pulses b/l. LOWER EXTREMITIES: No pitting edema. FROM, nml pulses b/l. Left foot partial amputation, stump well-healed. NEURO EXAM: Normal sensorium, cranial nerves II-XII grossly intact, normal speech, no gross weakness of arms, no gross weakness of legs. Gross sensation intact. Course Course 1901: Review of EMR, I did note an echo from 2019 which did show an LVEF of 60 to 65%, and no significant valvular abnormalities. I reviewed this with the patient. I also reviewed the medications that accompanied her from the residential. Patient states she does not take the levothyroxine as as prescribed as she is convinced it gives her headache. Administered Medications Acetaminophen (Acetaminophen 325 Mg Tab) 650 mg PO Q4H PRN PRN Reason: Pain or Fever Stop: 11/19/21 22:16 Last Admin: 10/22/21 20:47 Dose: 650 mg Documented by: [id number] Admin: 10/21/21 09:28 Dose: 650 mg Documented by: [id number] Amlodipine Besylate (Amlodipine Besylate 5 Mg Tab) 5 mg PO QPM [facility] Stop: 11/21/21 20:59 Last Admin: 10/22/21 20:52 Dose: 5 mg Documented by: [id number] Chlorthalidone (Chlorthalidone 25 Mg Tab) 12.5 mg PO QAM [facility] Stop: 11/21/21 14:59 Last Admin: 10/22/21 17:15 Dose: 12.5 mg Documented by: [id number] Enoxaparin Sodium (Enoxaparin Inj 40 Mg/0.4 Ml Syr) [facility] Stop: 11/20/21 08:59 Last Admin: 10/22/21 08:08 Dose: 40 mg Documented by: [id number] Admin: 10/21/21 09:15 Dose: 40 mg Documented by: [id number] Insulin Aspart (Insulin Aspart Per Unit) 0 units SC ACHS [facility] Stop: 11/19/21 22:16 Last Admin: 10/22/21 21:00 Dose: 3 units Documented by: [id number] Cosigned by: [id number] Admin: 10/22/21 17:18 Dose: 6 units Documented by: [id number] Cosigned by: [id number] Admin: 10/22/21 12:59 Dose: Not Given Documented by: [id number] Admin: 10/22/21 08:09 Dose: 5 units Documented by: [id number] Cosigned by: [id number] Admin: 10/21/21 21:05 Dose: 3 units Documented by: [id number] Cosigned by: [id number] Admin: 10/21/21 17:46 Dose: 2 units Documented by: [id number] Cosigned by: [id number] Admin: 10/21/21 12:34 Dose: 2 units Documented by: [id number] Cosigned by: [id number] Admin: 10/21/21 09:11 Dose: 4 units Documented by: [id number] Cosigned by: [id number] Admin: 10/20/21 23:14 Dose: 1 units Documented by: [id number] Cosigned by: [id number] Insulin Glargine (Insulin Glargine Solostar 100 Units/Ml 3 Ml Pen) 7 units SC BID [facility]ARYB[facility] Stop: 11/19/21 22:16 Last Admin: 10/22/21 21:02 Dose: 7 units Documented by: [id number] Cosigned by: [id number] Admin: 10/22/21 08:08 Dose: 7 units Documented by: [id number] Cosigned by: [id number] Admin: 10/21/21 20:34 Dose: 7 units Documented by: [id number] Cosigned by: [id number] Admin: 10/21/21 09:11 Dose: 7 units Documented by: [id number] Cosigned by: [id number] Admin: 10/20/21 22:54 Dose: 7 units Documented by: [id number] Cosigned by: [id number] Labetalol HCl (Labetalol Hcl Iv 5 Mg/Ml 20ml) 10 mg IV Q4H PRN PRN Reason: Hypertension Stop: 11/19/21 22:16 Last Admin: 10/22/21 11:41 Dose: 10 mg Documented by: [id number] Cosigned by: [id number] Admin: 10/21/21 18:19 Dose: 10 mg Documented by: [id number] Cosigned by: [id number] Levothyroxine Sodium (Levothyroxine Sodium 25 Mcg Tablet) 25 mcg PO DAILYBB MARYBETH Stop: 11/20/21 06:29 Last Admin: 10/22/21 05:49 Dose: Not Given Documented by: [id number] Admin: 10/21/21 05:51 Dose: 25 mcg Documented by: [id number] Lisinopril (Lisinopril 10 Mg Tab) 10 mg PO QPM [facility] Stop: 11/21/21 20:59 Last Admin: 10/22/21 20:52 Dose: 10 mg Documented by: [id number] Metoprolol Tartrate (Metoprolol Tartrate 25 Mg Tab) 12.5 mg PO BID [facility] Stop: 11/20/21 08:59 Last Admin: 10/22/21 20:50 Dose: 12.5 mg Documented by: [id number] Admin: 10/22/21 08:34 Dose: Not Given Documented by: [id number] Admin: 10/21/21 20:33 Dose: 12.5 mg Documented by: [id number] Admin: 10/21/21 09:14 Dose: 12.5 mg Documented by: [id number] Discontinued Medications Amlodipine Besylate (Amlodipine Besylate 5 Mg Tab) 5 mg PO NOW ONE Stop: 10/21/21 18:52 Last Admin: 10/21/21 19:27 Dose: 5 mg Documented by: [id number] Clonidine HCl (Clonidine Hcl 0.1 Mg Tab) 0.1 mg PO NOW ONE Stop: 10/20/21 20:55 Last Admin: 10/20/21 21:34 Dose: 0.1 mg Documented by: [id number] Furosemide (Furosemide 40 Mg/4 Ml Vial) 40 mg IV ONE ONE Stop: 10/20/21 18:34 Last Admin: 10/20/21 19:05 Dose: 40 mg Documented by: [id number] Furosemide (Furosemide 40 Mg/4 Ml Vial) 40 mg IV [id number] MARYBETH Stop: 11/19/21 22:16 Last Admin: 10/22/21 08:08 Dose: 40 mg Documented by: [id number] Admin: 10/21/21 17:47 Dose: 40 mg Documented by: [id number] Admin: 10/21/21 09:14 Dose: 40 mg Documented by: [id number] Admin: 10/20/21 22:53 Dose: 40 mg Documented by: [id number] Acetaminophen (Ofirmev) 1,000 mg in 100 mls @ 400 mls/hr IV NOW STA Stop: 10/20/21 20:19 Last Infusion: 10/20/21 21:51 Dose: 0 mls/hr Documented by: [id number] Admin: 10/20/21 20:23 Dose: 400 mls/hr Documented by: [id number] Magnesium Sulfate/Dextrose (Magnesium Sulfate / D5w) 1 gm in 100 mls @ 50 mls/hr IV ONE ONE Stop: 10/21/21 00:16 Last Infusion: 10/21/21 01:20 Dose: 0 mls/hr Documented by: [id number] Admin: 10/20/21 23:17 Dose: 50 mls/hr Documented by: [id number] Ioversol (Optiray 320 125ml) 120 ml IV ONCE ONE Stop: 10/22/21 13:55 Last Admin: 10/22/21 13:54 Dose: 120 ml Documented by: [id number] Labetalol HCl (Labetalol Hcl Iv 5 Mg/Ml 20ml) 10 mg IV NOW STA Stop: 10/20/21 19:28 Last Admin: 10/20/21 19:37 Dose: 10 mg Documented by: [id number] Cosigned by: [id number] Lisinopril (Lisinopril 10 Mg Tab) 10 mg PO NOW STA Stop: 10/21/21 18:51 Last Admin: 10/21/21 19:27 Dose: 10 mg Documented by: [id number] Metoprolol Tartrate (Metoprolol Tartrate 25 Mg Tab) 25 mg PO BID MARYBETH Stop: 11/19/21 22:16 Last Admin: 10/20/21 22:45 Dose: 25 mg Documented by: [id number] Nitroglycerin (Nitroglycerin 2% Ointment 30gm Tube) 1 inch EXT NOW STA Stop: 10/20/21 20:06 Last Admin: 10/20/21 20:23 Dose: 1 inch Documented by: [id number] Spironolactone (Spironolactone 12.5 Mg Tab) 12.5 mg PO NOW ONE Stop: 10/22/21 14:43 Last Admin: 10/22/21 17:15 Dose: 12.5 mg Documented by: [id number] Medical Decision Making Differential Diagnosis Differential diagnoses includes but is not limited to pneumonia, bronchitis, COPD/Asthma exacerbation, pneumothorax, pulmonary embolism, congestive heart failure, acute coronary syndrome Medical Records Attestation: I reviewed the patient's medical records. Home Medications Current Medication List: was personally reviewed by me Laboratory Data Attestation: I reviewed the patient's lab results. Result diagrams: 10/21/21 06:21 10/22/21 15:38 Lab Results 10/20/21 10/20/21 10/20/21 Range/Units 18:50 18:50 18:50 WBC 7.61 (4.8-10.8) K/uL RBC 3.58 L (4.2-5.4) M/uL Hgb 11.1 L (12.0-16.0) g/dL Hct 33.7 L (37-47) % MCV 94.1 (80-100) fL MCH 31.0 (25-34) pg MCHC 32.9 (32-36) g/dL RDW Std Deviation 43.5 (36.4-46.3) fL RDW Coeff of Francis 12.7 (11.5-14.5) % Plt Count 276 (130-400) K/uL MPV 10.8 H (7.4-10.4) fL Immature Gran % (Auto) 0.3 % Neut % (Auto) 60.1 % Lymph % (Auto) 25.8 % [place] % (Auto) 12.2 % Eos % (Auto) 1.3 % Baso % (Auto) 0.3 % Neut # (Auto) 4.58 (1.4-6.5) K/uL Lymph # (Auto) 1.96 (1.2-3.4) K/uL [place] # (Auto) 0.93 H (0.11-0.59) K/uL Eos # (Auto) 0.10 (0-0.5) K/uL Baso # (Auto) 0.02 (0-0.2) K/uL Immature Gran # (Auto) 0.02 (0.00-0.02) K/uL Sodium 135 L (136-145) mmol/L Potassium TNP Chloride 106 (98-107) mmol/L Carbon Dioxide 23 (21-32) mmol/L Anion Gap 6 (3-11) BUN 33 H (6-23) mg/dl Creatinine 1.07 (0.6-1.2) mg/dl Est Cr Clr Drug Dosing 59.3 ml/min Est GFR ( Amer) 64.9 ml/min Est GFR (Non-Af Amer) 56.0 ml/min BUN/Creatinine Ratio 30.8 H (10-20) Glucose 180 H (70-99(Fasting)) mg/dl POC Glucose (70-99) mg/dl Estimat Average Glucose mg/dl Hemoglobin A1c (4.5-5.6) % Calcium 9.1 (8.5-10.1) mg/dl Phosphorus (2.5-4.9) mg/dl Magnesium 1.9 (1.7-2.4) mg/dl Total Bilirubin 0.3 (0.2-1.0) mg/dl AST TNP ALT 12 (7-52) U/L Alkaline Phosphatase 78 (34-104) U/L Troponin I 0.03 (0-0.04) ng/ml B-Natriuretic Peptide (0-100) pg/ml Total Protein 6.9 (6.0-8.3) gm/dl Albumin 3.6 (3.4-5.0) gm/dl Globulin 3.3 (2.5-4.0) gm/dl Albumin/Globulin Ratio 1.1 (0.9-2) TSH 9.689 H (0.300-4.500) uIu/ml Free T4 0.88 (0.61-1.60) ng/dl Urine Color Urine Appearance (Clear) Urine pH (4.5-7.5) Ur Specific [place] (1.000-1.030) Urine Protein (Negative) Urine Glucose (UA) (Negative) Urine Ketones (Negative) Urine Blood (Negative) Urine Nitrite (Negative) Urine Bilirubin (Negative) Urine Urobilinogen (Negative) Ur Leukocyte Esterase (Negative) Urine WBC (Auto) (0-5) /hpf Urine RBC (Auto) (0-4) /hpf U Hyaline Cast (Auto) (0-5) /lpf U Epithel Cells (Auto) (0-5) /lpf Urine Bacteria (Auto) (Negative) Ur Random Creatinine mg/dl U Random Total Protein (0-11.9) mg/dl Protein/Creatinin Ratio (0-0.2) SARS-CoV-2, RNA, NAAT (NEGATIVE) 10/20/21 10/20/21 10/20/21 Range/Units 19:05 19:12 19:40 WBC (4.8-10.8) K/uL RBC (4.2-5.4) M/uL Hgb (12.0-16.0) g/dL Hct (37-47) % MCV (80-100) fL MCH (25-34) pg MCHC (32-36) g/dL RDW Std Deviation (36.4-46.3) fL RDW Coeff of Francis (11.5-14.5) % Plt Count (130-400) K/uL MPV (7.4-10.4) fL Immature Gran % (Auto) % Neut % (Auto) % Lymph % (Auto) % [place] % (Auto) % Eos % (Auto) % Baso % (Auto) % Neut # (Auto) (1.4-6.5) K/uL Lymph # (Auto) (1.2-3.4) K/uL [place] # (Auto) (0.11-0.59) K/uL Eos # (Auto) (0-0.5) K/uL Baso # (Auto) (0-0.2) K/uL Immature Gran # (Auto) (0.00-0.02) K/uL Sodium (136-145) mmol/L Potassium Chloride (98-107) mmol/L Carbon Dioxide (21-32) mmol/L Anion Gap (3-11) BUN (6-23) mg/dl Creatinine (0.6-1.2) mg/dl Est Cr Clr Drug Dosing ml/min Est GFR ( Amer) ml/min Est GFR (Non-Af Amer) ml/min BUN/Creatinine Ratio (10-20) Glucose (70-99(Fasting)) mg/dl POC Glucose (70-99) mg/dl Estimat Average Glucose mg/dl Hemoglobin A1c (4.5-5.6) % Calcium (8.5-10.1) mg/dl Phosphorus (2.5-4.9) mg/dl Magnesium (1.7-2.4) mg/dl Total Bilirubin (0.2-1.0) mg/dl AST ALT (7-52) U/L Alkaline Phosphatase (34-104) U/L Troponin I (0-0.04) ng/ml B-Natriuretic Peptide 946 H (0-100) pg/ml Total Protein (6.0-8.3) gm/dl Albumin (3.4-5.0) gm/dl Globulin (2.5-4.0) gm/dl Albumin/Globulin Ratio (0.9-2) TSH (0.300-4.500) uIu/ml Free T4 (0.61-1.60) ng/dl Urine Color Yellow Urine Appearance Clear (Clear) Urine pH 6.0 (4.5-7.5) Ur Specific [place] 1.009 (1.000-1.030) Urine Protein 3+ H (Negative) Urine Glucose (UA) Trace H (Negative) Urine Ketones Negative (Negative) Urine Blood 1+ H (Negative) Urine Nitrite Negative (Negative) Urine Bilirubin Negative (Negative) Urine Urobilinogen Negative (Negative) Ur Leukocyte Esterase Negative (Negative) Urine WBC (Auto) 1-5 (0-5) /hpf Urine RBC (Auto) 5-10 H (0-4) /hpf U Hyaline Cast (Auto) 0 (0-5) /lpf U Epithel Cells (Auto) >30 H (0-5) /lpf Urine Bacteria (Auto) Negative (Negative) Ur Random Creatinine mg/dl U Random Total Protein (0-11.9) mg/dl Protein/Creatinin Ratio (0-0.2) SARS-CoV-2, RNA, NAAT NEGATIVE (NEGATIVE) 10/20/21 10/20/21 10/20/21 Range/Units 20:48 20:48 22:53 WBC (4.8-10.8) K/uL RBC (4.2-5.4) M/uL Hgb (12.0-16.0) g/dL Hct (37-47) % MCV (80-100) fL MCH (25-34) pg MCHC (32-36) g/dL RDW Std Deviation (36.4-46.3) fL RDW Coeff of Francis (11.5-14.5) % Plt Count (130-400) K/uL MPV (7.4-10.4) fL Immature Gran % (Auto) % Neut % (Auto) % Lymph % (Auto) % [place] % (Auto) % Eos % (Auto) % Baso % (Auto) % Neut # (Auto) (1.4-6.5) K/uL Lymph # (Auto) (1.2-3.4) K/uL [place] # (Auto) (0.11-0.59) K/uL Eos # (Auto) (0-0.5) K/uL Baso # (Auto) (0-0.2) K/uL Immature Gran # (Auto) (0.00-0.02) K/uL Sodium (136-145) mmol/L Potassium 5.0 Chloride (98-107) mmol/L Carbon Dioxide (21-32) mmol/L Anion Gap (3-11) BUN (6-23) mg/dl Creatinine (0.6-1.2) mg/dl Est Cr Clr Drug Dosing ml/min Est GFR ( Amer) ml/min Est GFR (Non-Af Amer) ml/min BUN/Creatinine Ratio (10-20) Glucose (70-99(Fasting)) mg/dl POC Glucose 164 H (70-99) mg/dl Estimat Average Glucose mg/dl Hemoglobin A1c (4.5-5.6) % Calcium (8.5-10.1) mg/dl Phosphorus 4.9 (2.5-4.9) mg/dl Magnesium (1.7-2.4) mg/dl Total Bilirubin (0.2-1.0) mg/dl AST 19 ALT (7-52) U/L Alkaline Phosphatase (34-104) U/L Troponin I (0-0.04) ng/ml B-Natriuretic Peptide (0-100) pg/ml Total Protein (6.0-8.3) gm/dl Albumin (3.4-5.0) gm/dl Globulin (2.5-4.0) gm/dl Albumin/Globulin Ratio (0.9-2) TSH (0.300-4.500) uIu/ml Free T4 (0.61-1.60) ng/dl Urine Color Urine Appearance (Clear) Urine pH (4.5-7.5) Ur Specific [place] (1.000-1.030) Urine Protein (Negative) Urine Glucose (UA) (Negative) Urine Ketones (Negative) Urine Blood (Negative) Urine Nitrite (Negative) Urine Bilirubin (Negative) Urine Urobilinogen (Negative) Ur Leukocyte Esterase (Negative) Urine WBC (Auto) (0-5) /hpf Urine RBC (Auto) (0-4) /hpf U Hyaline Cast (Auto) (0-5) /lpf U Epithel Cells (Auto) (0-5) /lpf Urine Bacteria (Auto) (Negative) Ur Random Creatinine mg/dl U Random Total Protein (0-11.9) mg/dl Protein/Creatinin Ratio (0-0.2) SARS-CoV-2, RNA, NAAT (NEGATIVE) 10/20/21 10/21/21 10/21/21 Range/Units 23:50 06:21 06:21 WBC 6.40 (4.8-10.8) K/uL RBC 3.05 L (4.2-5.4) M/uL Hgb 9.5 L (12.0-16.0) g/dL Hct 28.7 L (37-47) % MCV 94.1 (80-100) fL MCH 31.1 (25-34) pg MCHC 33.1 (32-36) g/dL RDW Std Deviation 43.8 (36.4-46.3) fL RDW Coeff of Francis 12.7 (11.5-14.5) % Plt Count 250 (130-400) K/uL MPV 10.5 H (7.4-10.4) fL Immature Gran % (Auto) 0.2 % Neut % (Auto) 52.5 % Lymph % (Auto) 34.8 % [place] % (Auto) 10.0 % Eos % (Auto) 2.2 % Baso % (Auto) 0.3 % Neut # (Auto) 3.36 (1.4-6.5) K/uL Lymph # (Auto) 2.23 (1.2-3.4) K/uL [place] # (Auto) 0.64 H (0.11-0.59) K/uL Eos # (Auto) 0.14 (0-0.5) K/uL Baso # (Auto) 0.02 (0-0.2) K/uL Immature Gran # (Auto) 0.01 (0.00-0.02) K/uL Sodium 137 (136-145) mmol/L Potassium 5.1 Chloride 108 H (98-107) mmol/L Carbon Dioxide 24 (21-32) mmol/L Anion Gap 5 (3-11) BUN 35 H (6-23) mg/dl Creatinine 1.09 (0.6-1.2) mg/dl Est Cr Clr Drug Dosing 57.8 ml/min Est GFR ( Amer) 63.5 ml/min Est GFR (Non-Af Amer) 54.7 ml/min BUN/Creatinine Ratio 32.1 H (10-20) Glucose 109 H (70-99(Fasting)) mg/dl POC Glucose (70-99) mg/dl Estimat Average Glucose mg/dl Hemoglobin A1c (4.5-5.6) % Calcium 8.9 (8.5-10.1) mg/dl Phosphorus (2.5-4.9) mg/dl Magnesium (1.7-2.4) mg/dl Total Bilirubin (0.2-1.0) mg/dl AST ALT (7-52) U/L Alkaline Phosphatase (34-104) U/L Troponin I (0-0.04) ng/ml B-Natriuretic Peptide (0-100) pg/ml Total Protein (6.0-8.3) gm/dl Albumin (3.4-5.0) gm/dl Globulin (2.5-4.0) gm/dl Albumin/Globulin Ratio (0.9-2) TSH (0.300-4.500) uIu/ml Free T4 (0.61-1.60) ng/dl Urine Color Urine Appearance (Clear) Urine pH (4.5-7.5) Ur Specific [place] (1.000-1.030) Urine Protein (Negative) Urine Glucose (UA) (Negative) Urine Ketones (Negative) Urine Blood (Negative) Urine Nitrite (Negative) Urine Bilirubin (Negative) Urine Urobilinogen (Negative) Ur Leukocyte Esterase (Negative) Urine WBC (Auto) (0-5) /hpf Urine RBC (Auto) (0-4) /hpf U Hyaline Cast (Auto) (0-5) /lpf U Epithel Cells (Auto) (0-5) /lpf Urine Bacteria (Auto) (Negative) Ur Random Creatinine 29.1 mg/dl U Random Total Protein 190.8 H (0-11.9) mg/dl Protein/Creatinin Ratio 6.6 H (0-0.2) SARS-CoV-2, RNA, NAAT (NEGATIVE) 10/21/21 10/21/21 10/21/21 Range/Units 06:21 11:22 16:10 WBC (4.8-10.8) K/uL RBC (4.2-5.4) M/uL Hgb (12.0-16.0) g/dL Hct (37-47) % MCV (80-100) fL MCH (25-34) pg MCHC (32-36) g/dL RDW Std Deviation (36.4-46.3) fL RDW Coeff of Francis (11.5-14.5) % Plt Count (130-400) K/uL MPV (7.4-10.4) fL Immature Gran % (Auto) % Neut % (Auto) % Lymph % (Auto) % [place] % (Auto) % Eos % (Auto) % Baso % (Auto) % Neut # (Auto) (1.4-6.5) K/uL Lymph # (Auto) (1.2-3.4) K/uL [place] # (Auto) (0.11-0.59) K/uL Eos # (Auto) (0-0.5) K/uL Baso # (Auto) (0-0.2) K/uL Immature Gran # (Auto) (0.00-0.02) K/uL Sodium (136-145) mmol/L Potassium Chloride (98-107) mmol/L Carbon Dioxide (21-32) mmol/L Anion Gap (3-11) BUN (6-23) mg/dl Creatinine (0.6-1.2) mg/dl Est Cr Clr Drug Dosing ml/min Est GFR ( Amer) ml/min Est GFR (Non-Af Amer) ml/min BUN/Creatinine Ratio (10-20) Glucose (70-99(Fasting)) mg/dl POC Glucose 159 H 126 H (70-99) mg/dl Estimat Average Glucose 151 mg/dl Hemoglobin A1c 6.9 H (4.5-5.6) % Calcium (8.5-10.1) mg/dl Phosphorus (2.5-4.9) mg/dl Magnesium (1.7-2.4) mg/dl Total Bilirubin (0.2-1.0) mg/dl AST ALT (7-52) U/L Alkaline Phosphatase (34-104) U/L Troponin I (0-0.04) ng/ml B-Natriuretic Peptide (0-100) pg/ml Total Protein (6.0-8.3) gm/dl Albumin (3.4-5.0) gm/dl Globulin (2.5-4.0) gm/dl Albumin/Globulin Ratio (0.9-2) TSH (0.300-4.500) uIu/ml Free T4 (0.61-1.60) ng/dl Urine Color Urine Appearance (Clear) Urine pH (4.5-7.5) Ur Specific [place] (1.000-1.030) Urine Protein (Negative) Urine Glucose (UA) (Negative) Urine Ketones (Negative) Urine Blood (Negative) Urine Nitrite (Negative) Urine Bilirubin (Negative) Urine Urobilinogen (Negative) Ur Leukocyte Esterase (Negative) Urine WBC (Auto) (0-5) /hpf Urine RBC (Auto) (0-4) /hpf U Hyaline Cast (Auto) (0-5) /lpf U Epithel Cells (Auto) (0-5) /lpf Urine Bacteria (Auto) (Negative) Ur Random Creatinine mg/dl U Random Total Protein (0-11.9) mg/dl Protein/Creatinin Ratio (0-0.2) SARS-CoV-2, RNA, NAAT (NEGATIVE) Imaging Data Radiologist's Impression: Chest X-Ray 10/20/21 18:32 XR chest 1V portable CLINICAL HISTORY: sob TECHNIQUE: Single frontal radiograph of the chest was obtained. Comparison: Comparison is made to chest one view 07/10/2021 FINDINGS: No lines and tubes are seen. The cardiomediastinal silhouette is normal. Right lower lung airspace opacity is seen. Small right and possible trace left pleural effusion. IMPRESSION: Small right and possible trace left pleural effusion. Right lower lung airspace opacity may represent atelectasis, pneumonia, or aspiration. ACT 112: Negative or not required by law. Electronically signed by: Salvador Newman M.D. 10/20/2021 8:14 PM ECG Data Attestation: I personally reviewed and interpreted this ECG as follows: Indication: + SOB/dyspnea Rate (beats per minute): 82 Rhythm: + normal sinus ECG Intervals/blocks: + Normal QRS and + Normal QT ECG Benedict: + Normal ECG ST segments: + T-wave inversions (III only) and + Nonspecific ST abnormalities MDM Narrative This is a 61-year-old female presents emergency department with increasing dyspnea and lower extremity edema. Patient was also noted to have significant accompanying hypertension. Patient does have a history of hypertension, as well as reported history of congestive heart failure. Last echo was reviewed from 2019 which was reassuring at that time. Patient was given IV labetalol, nitro paste was applied, patient given medication for pain. Patient's blood pressure did slowly improve. Patient was given a dose of IV Lasix. Patient had been kofi ing oral Lasix over the last 5 days at the residential however seem to be failing this outpatient management. Given significant cardiac risk factors, difficulty controlling her high blood pressure, and worsening edema despite outpatient diuretics, hospitalist contacted for additional evaluation and management. Pt seen during a time of high acuity and national emergency pandemic while wearing PPE. Impression & Plan Dyspnea, CHF (congestive heart failure), COPD (chronic obstructive pulmonary disease), Noncompliance, Bilateral edema of lower extremity, Hypertension Discharge Plan Visit Data Chief Complaint: Cardiac Assessment Stated Complaint: HBP, HEART FAILURE, ADEMA, ED Provider: Christine Mujica Discharge Problem: Dyspnea, CHF (congestive heart failure), COPD (chronic obstructive pulmonary disease), Noncompliance, Bilateral edema of lower extremity, Hypertension Patient Disposition: Admitted As Inpatient Discharge Instructions Interventions: ED Discharge Assessment Last Done: 10/20/21 21:58 Discharge Problem: Dyspnea Qualifiers: Dyspnea type: shortness of breath Qualified Code(s): R06.02 - Shortness of breath CHF (congestive heart failure) Qualifiers: Heart failure type: unspecified Heart failure chronicity: acute on chronic Qualified Code(s): I50.9 - Heart failure, unspecified COPD (chronic obstructive pulmonary disease) Qualifiers: COPD type: unspecified COPD Qualified Code(s): J44.9 - Chronic obstructive pulmonary disease, unspecified Hypertension Qualifiers: Hypertension type: unspecified Qualified Code(s): I10 - Essential (primary) hypertension
[2021-10-20 19:17] LABS: Appearance Urine Clear (Clear); Bacteria Urine Automated Negative (Negative); Bilirubin Urine Negative (Negative); Blood Urine 1+ (Negative); Cast Urine Automated 0 /lpf (0-5); Color Urine Yellow; Epithelial Cell Urine Auto >30 /lpf (0-5); Glucose Urine UA Trace (Negative); Ketones Urine Negative (Negative); Leukocyte Esterase Urine Negative (Negative); Nitrite Urine Negative (Negative); Protein Urine 3+ (Negative); Specific Gravity Urine 1.009 (1.000-1.030); Urobilinogen Urine Negative (Negative)
[2021-10-20] MEDS ORDERED: LABETALOL HCL IV 5 MG/ML 20ML IV STA (19:27)
[2021-10-20 19:33] LABS: Thyroid Stimulating Hormone 9.689 uIu/ml (0.300-4.500)
[2021-10-20 19:44] LABS: Alanine Aminotransferase 12 U/L (7-52); Albumin Globulin Ratio 1.1 (0.9-2); Albumin Level 3.6 gm/dl (3.4-5.0); Alkaline Phosphatase 78 U/L (34-104); Anion Gap 6 (3-11); BUN Creatinine Ratio 30.8 (10-20); Bilirubin,Total 0.3 mg/dl (0.2-1.0); Blood Urea Nitrogen 33 mg/dl (6-23); Calcium 9.1 mg/dl (8.5-10.1); Carbon Dioxide 23 mmol/L (21-32); Chloride 106 mmol/L (98-107); Creatinine Clr Calc Pharmacy 59.3 ml/min; Est GFR (African American) 64.9 ml/min; Globulin 3.3 gm/dl (2.5-4.0); Glucose 180 mg/dl (70-99(Fasting)); Magnesium 1.9 mg/dl (1.7-2.4); Sodium 135 mmol/L (136-145); Total Protein 6.9 gm/dl (6.0-8.3); Troponin I 0.03 ng/ml (0-0.04)
[2021-10-20 20:04] LABS: T4 Free Thyroxine 0.88 ng/dl (0.61-1.60)
[2021-10-20] MEDS ORDERED: ACETAMINOPHEN 1,000 MG/100 ML VIAL IV STA (20:05)
[2021-10-20] MEDS ORDERED: NITROGLYCERIN 2% OINTMENT 30GM TUBE EXT STA (20:05)
--- NOTE | 2021-10-20 20:16 | XRay Report ---
XR chest 1V portable CLINICAL HISTORY: sob TECHNIQUE: Single frontal radiograph of the chest was obtained. Comparison: Comparison is made to chest one view 07/10/2021 FINDINGS: No lines and tubes are seen. The cardiomediastinal silhouette is normal. Right lower lung airspace op acity is seen. Small right and possible trace left pleural effusion. IMPRESSION: Small right and possible trace left pleural effusion. Right lower lung airspace opacity may represent atelectasis, pneumonia, or aspiration. ACT 112: Negative or not required by law. Electronically signed by: Salvador Newman M.D. 10/20/2021 8:14 PM
[2021-10-20] MEDS ORDERED: cloNIDine HCL 0.1 MG TAB PO ONE (20:54)
--- NOTE | 2021-10-20 21:08 | History & Physical Report ---
Date of Service October 20, 2021 Assessment & Plan (1) Hypertensive urgency: Plan: 61yo female with history of hypertension presenting with hypertensive urgency. Patient is presently taking only Metoprolol for her blood pressure. She reports her readings have been fairly high for the last week, associated with worsening bilateral LE edema and weight gain. She has been compliant with her medications. No stimulant or OTC medications. No symptoms of end-organ dysf unction - specifically no CP, MCNEAL, neurological deficit, back pain. She was given Labetalol 10mg IV in the ER, Nitro past placed and Clonidine 0.1mg x 1 with some improvement. Goal to reduce BP by 25% MAP over the next several hours. Initial MAP = 134. Goal MAP for the next several hours = 100 Upon review of prior blood pressures - she seems to be chronically high - cautious management -Admit to PCU -Continue Labetalol 12.5mg po daily -Labetalol 10mg IV q 4 hours as needed for BP >200/110 -Lasix given - will continue diuresis - Renal artery duplex ordered to assess for MARITO -Patient would benefit from additional antihypertensive agents. Consider Rbenden- inhibitor given history of diabetes, proteinuria pending results of renal artery duplex. (2) Edema: Plan: Patient reports progressive bilateral LE edema as well as weight gain of appx 20# over the last 10 days. Ddx to include CHF, hypothyroidism. Echocardiogram from 06/15/20 with normal LV function, no WMA, mild concentric LVH, EF of 60- 65%, mild MR and TR. Patient with history of hypothyroidism and is to be taking Synthroid but states that this medication gives her a headache. Also with 3+ protein in the urine. -Lasix 40mg IV BID -Monitor electrolytes, renal function, daily standing weights and I/Os -Check 2D echo -Check urine protein and Cr -Encourage patient to take her SYnthroid -LLE does seem to be more swollen into the thigh. Will check doppler to rule out DVT (3) Diabetes: Plan: Well controlled in 2019 with A1C of 5.7. Has diabetic neuropathy - was previously on gabapentin -Lantus 7 u BID, ISS -Goal blood sugar 100 - 140 -Check A1C with AM labs (4) Hypothyroid: Plan: Chronic. Elevated TSH with normal T4 -Continue Synthroid -Repeat labs outpatient in 4-6 weeks Plan: F/E/N - Diuresis as above, monitor electrolytes daily, CC diet as tolerated Ppx - Lovenox for DVT ppx Code - Full per discussion with patient Dispo - Admit to PCU History of Present Illness Chief Complaint: Hypertension, edema and SOB Primary Care Provider: [facility] Sumaya Marquez is a pleasant 61yo female with history of DM with peripheral neuropathy, HTN and HLP presenting from [facility] with poorly controlled hypertension, progressive edema and SOB. Patient notes progressive LE edema, L > R ongoing for the last 10 days as well as weight gain of approximately 20#. She has noted some SOB and GARCIA as well. She was going to the [facility] at the [facility] and was receiving Lasix 20mg PO for the last week. She did not note any increase in urination with the Lasix. She reports her blood pressure being high at the [facility] but does not recall the numbers. Last evening she was given Clonidine 0.1mg tablet for her blood pressure. She denies chest or back pain pain, cough, abdominal pain, nausea, vomiting, diarrhea. Denies MCNEAL, visual changes. She does have some mild nausea and occasional palpitations. Otherwise no acute complaints. Upon arrival today patient hypertensive SBP 190-261 / DBP 53 - 106. She was given Labetalol 10mg IV with brief improvement. ER Course: Lasix 40mg IV, Labetalol 10mg IV, Nitroglycerine 1 inch, Tylenol 1gm, Clonidine 0.1mg Allergies Allergy/AdvReac Type Severity Reaction Status Date / Time No Known Allergies Allergy Verified 10/20/21 19:28 Home Medications Medication Instructions Recorded Confirmed Type acetaminophen 650 mg 650 mg PO Q12H 10/20/21 10/20/21 History tablet,extended release (Tylenol Arthritis Pain) albuterol sulfate 2.5 mg INHALATION QID PRN 10/20/21 10/20/21 History furosemide 20 mg tablet (Lasix) 20 mg PO BID 10/20/21 10/20/21 History insulin NPH isoph U-100 human 100 16 unit SUBCUT HS 10/20/21 10/20/21 History unit/mL subcutaneous suspension (Novolin N NPH U-100 Insulin isophane) insulin NPH isoph U-100 human 100 18 unit SUBCUT QAM 10/20/21 10/20/21 History unit/mL subcutaneous suspension (Novolin N NPH U-100 Insulin isophane) levothyroxine 25 mcg tablet 25 mcg PO DAILY 10/20/21 10/20/21 History metoprolol tartrate 25 mg tablet 12.5 mg PO BID 10/20/21 10/20/21 History Past Med/Surg History Medical History (Updated 10/20/21 @ 22:52 by Ginger Robreto DO) Acute head injury Acute hyponatremia Avulsed toenail Diabetes Diabetic neuropathy Hypertension Hypokalemia Hypomagnesemia Hypothyroid Tinea pedis Surgical History (Updated 10/20/21 @ 22:46 by Ginger Roberto DO) History of amputation Family History Father Dementia in his 80s Mother , in her 70s Diabetes Social History Smoking Status: Former smoker Tobacco Type: Cigarettes Cigarettes Per Day: 20; Smoking End Date: 3 months ago; Second Hand Exposure: Yes; Do You Dip or Chew Tobacco: No; Tobacco Cessation Education Requested by Patient: No Hx Alcohol Use: Yes Alcohol type: hard liquor Alcohol Intake Frequency Comment: daily, at least 3 shots Hx Substance Use: No Preferred Language: [place] Communication Ability: Effective 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 Required: No Beliefs That Will Affect Care: None marital status: Single Current Living Situation: Other Current Living Situation Comment: inmate current occupational status: disabled How many Children do You have: 1 How many Children do You have Comment: son Feels Safe at Home: Yes Assistive Devices: Denture - Upper, Denture - Lower and Glasses Review of Systems Review of Systems: All systems reviewed & are unremarkable except as noted in HPI & below Physical Exam Physical Exam: General: patient resting comfortably, NAD, non-toxic in appearance, AA&O x 4 Skin: warm, dry, intact, no rashes or lesions HEENT: NC/AT, PERRL, EOMI, anicteric sclera, conjunctiva without injection, external ear normal to inspection and nontender, nares patent, moist mucus membranes, dentition intact, no oropharyngeal lesions, neck supple, trachea midline, no LAD, no thyromegaly, no JVD, no papilledema on limited bedside fundoscopic exam Heart: +S1/S2, regular, 2/6 ZACHARY at left sternal border with radiation to carotids, no rubs/gallops, no JVD Lungs: equal air entry bilaterally, crackles in bilateral bases, no rhonchi/wheezes Abd: +BS, soft, NT/ND, no masses/organomegaly/ascites Ext: warm, 2+ pulses in UE/LE bilaterally, s/p TMA left foot, 3+ pitting edema of bilateral LE, L > R to thighs, abdominal wall Neuro: nonfocal, patient AA&O x 4, speech intact, no facial droop, moving all extremities on command with equal strength 5/5 Results & Data Results & Data ([facility]) Vital Signs (Past 12 Hours) Vital Signs Temp Pulse Resp BP BP Pulse Ox 10/20/21 20:32 14 190/96 H 96 10/20/21 20:30 71 26 H 207/77 H 10/20/21 20:25 73 24 10/20/21 20:20 72 21 236/85 H 10/20/21 20:15 72 24 10/20/21 20:10 74 23 235/86 H 10/20/21 20:07 77 28 H 208/53 H 10/20/21 20:03 73 27 H 245/99 H 10/20/21 20:00 70 26 H 225/86 H 10/20/21 19:55 71 24 10/20/21 19:50 68 24 223/80 H 10/20/21 19:45 67 26 H 10/20/21 19:40 69 24 203/97 H 10/20/21 19:35 80 18 10/20/21 19:30 80 19 261/97 H 10/20/21 19:26 84 30 H 10/20/21 19:20 84 27 H 99 10/20/21 19:15 81 21 97 10/20/21 19:13 14 10/20/21 19:10 80 24 97 10/20/21 19:00 83 23 252/106 H 100 10/20/21 18:51 85 28 H 100 10/20/21 18:10 36.7 C 87 16 204/96 H 98 Laboratory Results Laboratory Results WBC 7.61 K/uL (4.8-10.8) 10/20/21 18:50 RBC 3.58 M/uL (4.2-5.4) L 10/20/21 18:50 Hgb 11.1 g/dL (12.0-16.0) L 10/20/21 18:50 Hct 33.7 % (37-47) L 10/20/21 18:50 MCV 94.1 fL (80-100) 10/20/21 18:50 MCH 31.0 pg (25-34) 10/20/21 18:50 MCHC 32.9 g/dL (32-36) 10/20/21 18:50 RDW Std Deviation 43.5 fL (36.4-46.3) 10/20/21 18:50 RDW Coeff of Francis 12.7 % (11.5-14.5) 10/20/21 18:50 Plt Count 276 K/uL (130-400) 10/20/21 18:50 MPV 10.8 fL (7.4-10.4) H 10/20/21 18:50 Immature Gran % (Auto) 0.3 % 10/20/21 18:50 Neut % (Auto) 60.1 % 10/20/21 18:50 Lymph % (Auto) 25.8 % 10/20/21 18:50 [place] % (Auto) 12.2 % 10/20/21 18:50 Eos % (Auto) 1.3 % 10/20/21 18:50 Baso % (Auto) 0.3 % 10/20/21 18:50 Neut # (Auto) 4.58 K/uL (1.4-6.5) 10/20/21 18:50 Lymph # (Auto) 1.96 K/uL (1.2-3.4) 10/20/21 18:50 [place] # (Auto) 0.93 K/uL (0.11-0.59) H 10/20/21 18:50 Eos # (Auto) 0.10 K/uL (0-0.5) 10/20/21 18:50 Baso # (Auto) 0.02 K/uL (0-0.2) 10/20/21 18:50 Immature Gran # (Auto) 0.02 K/uL (0.00-0.02) 10/20/21 18:50 Sodium 135 mmol/L (136-145) L 10/20/21 18:50 Potassium 5.0 mmol/L (3.5-5.1) 10/20/21 20:48 Chloride 106 mmol/L (98-107) 10/20/21 18:50 Carbon Dioxide 23 mmol/L (21-32) 10/20/21 18:50 Anion Gap 6 (3-11) 10/20/21 18:50 BUN 33 mg/dl (6-23) H 10/20/21 18:50 Creatinine 1.07 mg/dl (0.6-1.2) 10/20/21 18:50 Est Cr Clr Drug Dosing 59.3 ml/min 10/20/21 18:50 Est GFR ( Amer) 64.9 ml/min 10/20/21 18:50 Est GFR (Non-Af Amer) 56.0 ml/min 10/20/21 18:50 BUN/Creatinine Ratio 30.8 (10-20) H 10/20/21 18:50 Glucose 180 mg/dl (70-99(Fasting)) H 10/20/21 18:50 Calcium 9.1 mg/dl (8.5-10.1) 10/20/21 18:50 Phosphorus 4.9 mg/dl (2.5-4.9) 10/20/21 20:48 Magnesium 1.9 mg/dl (1.7-2.4) 10/20/21 18:50 Total Bilirubin 0.3 mg/dl (0.2-1.0) 10/20/21 18:50 AST 19 U/L (13-39) 10/20/21 20:48 ALT 12 U/L (7-52) 10/20/21 18:50 Alkaline Phosphatase 78 U/L (34-104) 10/20/21 18:50 Troponin I 0.03 ng/ml (0-0.04) 10/20/21 18:50 B-Natriuretic Peptide 946 pg/ml (0-100) H 10/20/21 19:12 Total Protein 6.9 gm/dl (6.0-8.3) 10/20/21 18:50 Albumin 3.6 gm/dl (3.4-5.0) 10/20/21 18:50 Globulin 3.3 gm/dl (2.5-4.0) 10/20/21 18:50 Albumin/Globulin Ratio 1.1 (0.9-2) 10/20/21 18:50 TSH 9.689 uIu/ml (0.300-4.500) H 10/20/21 18:50 Free T4 0.88 ng/dl (0.61-1.60) 10/20/21 18:50 Urine Color Yellow 10/20/21 19:05 Urine Appearance Clear (Clear) 10/20/21 19:05 Urine pH 6.0 (4.5-7.5) 10/20/21 19:05 Ur Specific [place] 1.009 (1.000-1.030) 10/20/21 19:05 Urine Protein 3+ (Negative) H 10/20/21 19:05 Urine Glucose (UA) Trace (Negative) H 10/20/21 19:05 Urine Ketones Negative (Negative) 10/20/21 19:05 Urine Blood 1+ (Negative) H 10/20/21 19:05 Urine Nitrite Negative (Negative) 10/20/21 19:05 Urine Bilirubin Negative (Negative) 10/20/21 19:05 Urine Urobilinogen Negative (Negative) 10/20/21 19:05 Ur Leukocyte Esterase Negative (Negative) 10/20/21 19:05 Urine WBC (Auto) 1-5 /hpf (0-5) 10/20/21 19:05 Urine RBC (Auto) 5-10 /hpf (0-4) H 10/20/21 19:05 U Hyaline Cast (Auto) 0 /lpf (0-5) 10/20/21 19:05 U Epithel Cells (Auto) >30 /lpf (0-5) H 10/20/21 19:05 Urine Bacteria (Auto) Negative (Negative) 10/20/21 19:05 SARS-CoV-2, RNA, NAAT NEGATIVE (NEGATIVE) 10/20/21 19:40 Impressions Chest X-Ray 10/20/21 18:32 XR chest 1V portable CLINICAL HISTORY: sob TECHNIQUE: Single frontal radiograph of the chest was obtained. Comparison: Comparison is made to chest one view 07/10/2021 FINDINGS: No lines and tubes are seen. The cardiomediastinal silhouette is normal. Right lower lung airspace opacity is seen. Small right and possible trace left pleural effusion. IMPRESSION: Small right and possible trace left pleural effusion. Right lower lung airspace opacity may represent atelectasis, pneumonia, or aspiration. ACT 112: Negative or not required by law. Electronically signed by: Salvador Newman M.D. 10/20/2021 8:14 PM ECG Additional Comments: EKG with NSR at 82bpm, normal axis, NL=063, QRS=78, WQm=247, TWI in V1/V2 Code Status & VTE Plan VTE Prophylaxis Plan VTE Prophylaxis will be ordered: Yes PG Care Time/CCT Total # of Minutes Spent Total Time Spent with Patient: Total time spent is greater than 50% in coordination of care (as documented) at patient's floor/unit and/or counseling patient: Coding Level of Care Code INT OBSERVATION CARE 70M LVL 3 Diagnoses Diabetes E11.9 Hypothyroid E03.9 Edema R60.9 Hypertensive urgency I16.0
[2021-10-20] MEDS ORDERED: GLUCAGON FOR INJ 1 MG VIAL SQ PRN (22:17)
[2021-10-20] MEDS ORDERED: ONDANSETRON INJ 2 MG/ML 2 ML VIAL IV PRN (22:17)
[2021-10-20] MEDS ORDERED: DEXTROSE 50% 50 ML SYRINGE IV PRN (22:17)
[2021-10-20] MEDS ORDERED: CARBOHYDRATES FOR HYPOGLYCEMIA PO PRN (22:17)
[2021-10-20] MEDS ORDERED: MAGNESIUM SULFATE / D5W 1 GM/100 ML BAG IV ONE (22:17)
[2021-10-20] MEDS ORDERED: METOPROLOL TARTRATE 25 MG TAB PO SCH (22:17)
[2021-10-20] MEDS ORDERED: GLUCOSE 10 TABS/TUBE PO PRN (22:17)
[2021-10-20] MEDS ORDERED: GLUCOSE 40% GEL 15 GM TUBE PO PRN (22:17)
[2021-10-20] MEDS: FUROSEMIDE 40 MG/4 ML VIAL IV SCH (22:53)
[2021-10-20] MEDS: INSULIN GLARGINE SOLOSTAR 100 UNITS/ML 3 ML PEN SC SCH (22:54)
[2021-10-20] MEDS: INSULIN ASPART PER UNIT SC SCH (23:14)
[2021-10-21 01:05] LABS: Creatinine Urine Random 29.1 mg/dl; Protein Creatinine Ratio Urine 6.6 (0-0.2); Total Protein Urine Random 190.8 mg/dl (0-11.9)
[2021-10-21] MEDS: LEVOTHYROXINE SODIUM 25 MCG TABLET PO SCH (05:51)
--- NOTE | 2021-10-21 06:42 | Ultrasound Report ---
LEFT LOWER EXTREMITY VENOUS DOPPLER HISTORY: Acute pain and swelling of the lower legs edema L > R, tenderness COMPARISON STUDY: Doppler study 05/09/2020. FINDINGS: There is normal compressibility, flow, and augmentation within the left lower extremity kelly p venous system. Diffuse subcutaneous edema. Reactive appearing left inguinal chain lymph node measur es 3.3 x 1.1 x 2.1 cm. IMPRESSION: No DVT within the left lower extremity. ACT 112: Negative or not required by law. Electronically signed by: Olman Rodriguez M.D. 10/21/2021 6:41 AM
[2021-10-21 07:01] LABS: Basophils # (auto) 0.02 K/uL (0-0.2); Basophils % (auto) 0.3 %; Eosinophils # (auto) 0.14 K/uL (0-0.5); Eosinophils % (auto) 2.2 %; Hematocrit (blood only) 28.7 % (37-47); Hemoglobin 9.5 g/dL (12.0-16.0); Immature Granulocytes # (auto) 0.01 K/uL (0.00-0.02); Immature Granulocytes % (auto) 0.2 %; Lymphocytes # (auto) 2.23 K/uL (1.2-3.4); Lymphocytes % (auto) 34.8 %; Mean Corpuscular Hemoglobin 31.1 pg (25-34); Mean Corpuscular Hgb Conc 33.1 g/dL (32-36); Mean Corpuscular Volume 94.1 fL (80-100); Mean Platelet Volume 10.5 fL (7.4-10.4); Monocytes # (auto) 0.64 K/uL (0.11-0.59); Neutrophils # (auto) 3.36 K/uL (1.4-6.5); Neutrophils % (auto) 52.5 %; Platelet Count 250 K/uL (130-400); RDW Coefficient of Variation 12.7 % (11.5-14.5); RDW Standard Deviation 43.8 fL (36.4-46.3); Red Blood Count 3.05 M/uL (4.2-5.4)
[2021-10-21 07:21] LABS: BUN Creatinine Ratio 32.1 (10-20); Calcium 8.9 mg/dl (8.5-10.1); Creatinine Clr Calc Pharmacy 57.8 ml/min; Est GFR (African American) 63.5 ml/min; Est GFR (Non-African American) 54.7 ml/min; Potassium 5.1 mmol/L (3.5-5.1)
[2021-10-21 07:30] LABS: Estimated Average Glucose 151 mg/dl; Hemoglobin A1C 6.9 % (4.5-5.6)
--- NOTE | 2021-10-21 08:39 | Ultrasound Report ---
US duplex renal artery CLINICAL HISTORY: hypertension TECHNIQUE: Real-time grayscale and color and spectral Doppler ultrasound imaging of the kidneys was p erformed. Comparison: None available at the time of this dictation. FINDINGS: RIGHT: Renal artery patent with peak systolic velocity 86 cm/s distally. However, it measures 312 cm/s in it s proximal to midportion. Intrarenal resistive index measures 0.77. Renal vein patent. LEFT: Renal artery patent with peak systolic velocity 172 cm/s approx. Intrarenal resistive index measures 0.69. Renal vein patent. Reference ranges: Normal main renal artery peak systolic velocity less than 180 cm/s. Normal resistive index measures l ess than 0.7 IMPRESSION: 1. Evidence for renal artery stenosis involving the proximal to mid right renal artery as described a saranya. 2. There is also mild renal artery stenosis proximally on the left as well. 3. Follow-up CTA of the renal arteries could be obtained for further evaluation. ACT 112: Negative or not required by law. Electronically signed by: Dm Duncan M.D. 10/21/2021 8:38 AM
[2021-10-21] MEDS: INSULIN GLARGINE SOLOSTAR 100 UNITS/ML 3 ML PEN SC SCH ×2 (09:11→20:34)
[2021-10-21] MEDS: INSULIN ASPART PER UNIT SC SCH ×4 (09:11→21:05)
[2021-10-21] MEDS: FUROSEMIDE 40 MG/4 ML VIAL IV SCH ×2 (09:14→17:47)
[2021-10-21] MEDS: METOPROLOL TARTRATE 25 MG TAB PO SCH ×2 (09:14→20:33)
[2021-10-21] MEDS: ENOXAPARIN INJ 40 MG/0.4 ML SYR SQ SCH (09:15)
[2021-10-21] MEDS: ACETAMINOPHEN 325 MG TAB PO PRN (09:28)
--- NOTE | 2021-10-21 10:34 | XCELERA ---
[id number] \\[id number]
--- NOTE | 2021-10-21 12:18 | Electrocardiogram Report ---
Test Reason : Blood Pressure : / mmHG Vent. Rate : 082 BPM Atrial Rate : 082 BPM P-R Int : 136 ms QRS Dur : 078 ms QT Int : 380 ms P-R-T Axes : 041 061 017 degrees QTc Int : 443 ms Normal sinus rhythm Poor R wave progression, consider anterior MD vs. lead placement vs. LVH Abnormal ECG When compared with ECG of 10-JUL-2021 13:21, No significant change Confirmed by Satish Garsia ([id number]) on 10/21/2021 12:18:05 PM Referred By: [facility] Confirmed By:Satish Garsia
[2021-10-21] MEDS: LABETALOL HCL IV 5 MG/ML 20ML IV PRN (18:19)
[2021-10-21] MEDS ORDERED: lisinopril 10 MG TAB PO STA (18:50)
[2021-10-21] MEDS ORDERED: amLODIPine BESYLATE 5 MG TAB PO ONE (18:51)
--- NOTE | 2021-10-21 21:37 | Hospitalist Progress Note ---
Date of Service October 21, 2021 Assessment & Plan (1) Hypertensive urgency: Plan: 61yo female with history of hypertension presenting with hypertensive urgency. Patient is presently taking only Metoprolol for her blood pressure. She reports her readings have been fairly high for the last week, associated with worsening bilateral LE edema and weight gain. She has been compliant with her medications. No stimulant or OTC medications. No symptoms of end-organ dysf unction - specifically no CP, MCNEAL, neurological deficit, back pain. She was given Labetalol 10mg IV in the ER, Nitro past placed and Clonidine 0.1mg x 1 with some improvement. Goal to reduce BP by 25% MAP over the next several hours. Initial MAP = 134. Goal MAP for the next several hours = 100 Upon review of prior blood pressures - she seems to be chronically high - cautious management -Admit to PCU -Continue Labetalol 12.5mg po daily -Labetalol 10mg IV q 4 hours as needed for BP >200/110 -Lasix given - will continue diuresis - Renal artery duplex ordered to assess for MARITO -Patient would benefit from additional antihypertensive agents. Consider Brenden- inhibitor given history of diabetes, proteinuria pending results of renal artery duplex. -added brenden inhibitor, Calcium channel ryan -consulted vascular for renal artery stenosis (2) Edema: Plan: Patient reports progressive bilateral LE edema as well as weight gain of appx 20# over the last 10 days. Ddx to include CHF, hypothyroidism. Echocardiogram from 06/15/20 with normal LV function, no WMA, mild concentric LVH, EF of 60- 65%, mild MR and TR. Patient with history of hypothyroidism and is to be taking Synthroid but states that this medication gives her a headache. Also with 3+ protein in the urine. -Lasix 40mg IV BID -Monitor electrolytes, renal function, daily standing weights and I/Os -Check 2D echo -Check urine protein and Cr -Encourage patient to take her SYnthroid -LLE does seem to be more swollen into the thigh. Will check doppler to rule out DVT (3) Diabetes: Plan: Well controlled in 2019 with A1C of 5.7. Has diabetic neuropathy - was previously on gabapentin -Lantus 7 u BID, ISS -Goal blood sugar 100 - 140 -Check A1C with AM labs (4) Hypothyroid: Plan: Chronic. Elevated TSH with normal T4 -Continue Synthroid -Repeat labs outpatient in 4-6 weeks Plan: F/E/N - Diuresis as above, monitor electrolytes daily, CC diet as tolerated Ppx - Lovenox for DVT ppx Code - Full per discussion with patient Dispo - Admit to PCU Admission and Anticipated Discharge Date Admission Date: October 21, 2021 Subjective Patient reports feeling well. Patient has no new complaints. Review of Systems Review of Systems: All systems reviewed & are unremarkable except as noted in HPI & below Physical Exam Physical Exam: General: patient resting comfortably, NAD, non-toxic in appearance, AA&O x 4 Skin: warm, dry, intact, no rashes or lesions HEENT: NC/AT, PERRL, EOMI, anicteric sclera, conjunctiva without injection, external ear normal to inspection and nontender, nares patent, moist mucus membranes, dentition intact, no oropharyngeal lesions, neck supple, trachea midline, no LAD, no thyromegaly, no JVD, no papilledema on limited bedside fundoscopic exam Heart: +S1/S2, regular, 2/6 ZACHARY at left sternal border with radiation to carotids, no rubs/gallops, no JVD Lungs: equal air entry bilaterally, crackles in bilateral bases, no rhonchi/wheezes Abd: +BS, soft, NT/ND, no masses/organomegaly/ascites Ext: warm, 2+ pulses in UE/LE bilaterally, s/p TMA left foot, 3+ pitting edema of bilateral LE, L > R to thighs, abdominal wall Neuro: nonfocal, patient AA&O x 4, speech intact, no facial droop, moving all extremities on command with equal strength 5/5 Results & Data Results & Data ([facility]) Vital Signs (Past 12 Hours) Vital Signs Temp Pulse Pulse Resp BP Pulse Ox 10/21/21 20:32 60 217/80 H 10/21/21 19:26 62 208/76 H 10/21/21 18:42 235/89 H 10/21/21 18:14 36.9 C 59 L 16 211/86 H 95 10/21/21 16:00 36.8 C 60 18 159/62 H 98 10/21/21 14:19 55 L 10/21/21 11:26 36.5 C 55 L 16 164/69 H 97 PG Care Time/CCT Total # of Minutes Spent Total Time Spent with Patient: Total time spent is greater than 50% in coordination of care (as documented) at patient's floor/unit and/or counseling patient: Coding Level of Care Code 61013 Subseq Hosp Care Lvl 2 Diagnoses Hypertensive urgency I16.0 Edema R60.9 Diabetes E11.9 Hypothyroid E03.9 Time Spent (min) 25
[2021-10-22] MEDS: LEVOTHYROXINE SODIUM 25 MCG TABLET PO SCH (05:49)
[2021-10-22] MEDS: ENOXAPARIN INJ 40 MG/0.4 ML SYR SQ SCH (08:08)
[2021-10-22] MEDS: INSULIN GLARGINE SOLOSTAR 100 UNITS/ML 3 ML PEN SC SCH ×2 (08:08→21:02)
[2021-10-22] MEDS: FUROSEMIDE 40 MG/4 ML VIAL IV SCH (08:08)
[2021-10-22] MEDS: INSULIN ASPART PER UNIT SC SCH ×4 (08:09→21:00)
[2021-10-22] MEDS: METOPROLOL TARTRATE 25 MG TAB PO SCH ×2 (08:34→20:50)
[2021-10-22] MEDS: LABETALOL HCL IV 5 MG/ML 20ML IV PRN (11:41)
[2021-10-22] MEDS ORDERED: OPTIRAY 320 125ml IV ONE (13:54)
--- NOTE | 2021-10-22 14:23 | CT Scan Report ---
CT angio abdomen wo/w con CLINICAL HISTORY: Evaluate renal artery stenosis. COMPARISON STUDY: Renal artery Doppler ultrasound from 10/21/[address] abdomen and pelvis f rom 07/10/2021 CT DOSE: 957.74 mGycm TECHNIQUE: Standard CT Angiogram of the aorta was performed with IV contrast followed by image post p rocessing with coronal, and sagittal MIP reformats... This CT exam was performed using one or more of the following dose reduction techniques: Automated ex posure control, adjustment of the mA and/or kV according to patient size, or use of iterative reconst ruction technique. CONTRAST: Optiray 320, 120 mL nonionic intravenous contrast. VASCULAR FINDINGS: Abdominal aorta: patent without aneurysm or dissection. Atherosclerotic calcification is present. Celiac trunk: patent without stenosis. Superior mesenteric artery: patent without stenosis. Right renal artery: There is a large calcified plaque present at the origin of the right renal artery extending for length of 6 to 7 mm. It produces at least 60-70% stenosis of the proximal right renal artery utilizing NASCET criteria. Left renal artery: patent without stenosis. Inferior mesenteric artery: patent without stenosis. Right common iliac artery: There is greater than 50% stenosis present due to calcified atheroscleroti c plaque. Left common iliac artery: There is approximately 50% stenosis present due to calcified atheroscleroti c plaque. NONVASCULAR FINDINGS: Lung base: There is a moderately large right pleural effusion with compressive atelectasis/collapse i nvolving the right lower lobe. There is small left pleural effusion with left basilar atelectasis. Abdominal cavity: There is no evidence for abdominal mass, adenopathy or ascites. Liver: There is homogeneous attenuation of the liver parenchyma. There is no evidence for enhancing m ass lesion. Spleen: There is homogeneous attenuation of the splenic parenchyma. There is no enhancing mass lesion . Pancreas: There is homogeneous attenuation of the pancreatic parenchyma. There is no evidence for mas s lesion or peripancreatic fluid collection. Gall Bladder: The gallbladder is well distended with suspicion of pericholecystic edema. If indicated clinically, gallbladder ultrasound would be recommended for further evaluation. Adrenal glands: The adrenal glands are normal in size and attenuation. There is no evidence for enhan cing mass lesion. Kidneys: There is homogeneous attenuation of the renal parenchyma bilaterally. There is no evidence f or renal cortical atrophy. There is no evidence for renal calculus or hydronephrosis. There is no ellen dence for enhancing mass. Bowel: The bowel loops are normally placed within the abdomen and pelvis without evidence for dilatat ion or obstruction. There is no evidence for mass lesion. There are no inflammatory changes present. There is no evidence for free air. Osseous structures: There is no acute osseous pathology. IMPRESSION: 1. Large calcified atherosclerotic plaque at the origin of the right main renal artery with approxima tely 60-70% stenosis present at this site. 2. Atherosclerotic calcification throughout the abdominal aorta with no evidence for aneurysm. 3. Atherosclerotic plaque with stenosis at the origin of the iliac arteries bilaterally, right greate r than left. 4. Moderately large right pleural effusion with right lower lobe atelectasis/collapse. 5. Small left pleural effusion with left lower lobe atelectasis/collapse. 6. Distended gallbladder with suspicion of pericholecystic edema. If indicated clinically, gallbladde r ultrasound would be the study of choice for further evaluation. ACT 112: Negative or not required by law. Electronically signed by: Dm Duncan M.D. 10/22/2021 2:22 PM
[2021-10-22] MEDS ORDERED: SPIRONOLACTONE 12.5 MG TAB PO ONE (14:42)
[2021-10-22] MEDS: CHLORTHALIDONE 25 MG TAB PO SCH (17:15)
[2021-10-22 17:43] LABS: Calcium 9.1 mg/dl (8.5-10.1); Creatinine Clr Calc Pharmacy 47.6 ml/min; Est GFR (African American) 51.3 ml/min; Est GFR (Non-African American) 44.2 ml/min
[2021-10-22] MEDS: ACETAMINOPHEN 325 MG TAB PO PRN (20:47)
[2021-10-22] MEDS: amLODIPine BESYLATE 5 MG TAB PO SCH (20:52)
[2021-10-22] MEDS ORDERED: lisinopril 10 MG TAB PO SCH (21:00)
--- NOTE | 2021-10-22 21:07 | Hospitalist Progress Note ---
Date of Service October 22, 2021 Assessment & Plan (1) Hypertensive urgency: Plan: 61yo female with history of hypertension presenting with hypertensive urgency. Patient is presently taking only Metoprolol for her blood pressure. She reports her readings have been fairly high for the last week, associated with worsening bilateral LE edema and weight gain. She has been compliant with her medications. No stimulant or OTC medications. No symptoms of end-organ dysf unction - specifically no CP, MCNEAL, neurological deficit, back pain. She was given Labetalol 10mg IV in the ER, Nitro past placed and Clonidine 0.1mg x 1 with some improvement. Goal to reduce BP by 25% MAP over the next several hours. Initial MAP = 134. Goal MAP for the next several hours = 100 Upon review of prior blood pressures - she seems to be chronically high - cautious management -Admit to PCU -Continue Labetalol 12.5mg po daily -Labetalol 10mg IV q 4 hours as needed for BP >200/110 -Lasix given - will continue diuresis - Renal artery duplex ordered: showed MARITO on right CT scan confirmed. -added petros inhibitor, Calcium channel ryan, thiazide, spirinolactone -consulted vascular for renal artery stenosis (2) Edema: Plan: Patient reports progressive bilateral LE edema as well as weight gain of appx 20# over the last 10 days. Ddx to include CHF, hypothyroidism. Echocardiogram from 06/15/20 with normal LV function, no WMA, mild concentric LVH, EF of 60- 65%, mild MR and TR. Patient with history of hypothyroidism and is to be taking Synthroid but states that this medication gives her a headache. Also with 3+ protein in the urine. -Lasix 40mg IV BID -Monitor electrolytes, renal function, daily standing weights and I/Os -Check 2D echo -Check urine protein and Cr -Encourage patient to take her SYnthroid -LLE does seem to be more swollen into the thigh. Will check doppler to rule out DVT (3) Diabetes: Plan: Well controlled in 2019 with A1C of 5.7. Has diabetic neuropathy - was previously on gabapentin -Lantus 7 u BID, ISS -Goal blood sugar 100 - 140 -Check A1C with AM labs (4) Hypothyroid: Plan: Chronic. Elevated TSH with normal T4 -Continue Synthroid -Repeat labs outpatient in 4-6 weeks Plan: F/E/N - Diuresis as above, monitor electrolytes daily, CC diet as tolerated Ppx - Lovenox for DVT ppx Code - Full per discussion with patient Dispo - Admit to PCU Admission and Anticipated Discharge Date Admission Date: October 21, 2021 Subjective 61 yo female reports no new symptoms. Review of Systems Review of Systems: All systems reviewed & are unremarkable except as noted in HPI & below Physical Exam Physical Exam: General: patient resting comfortably, NAD, non-toxic in appearance, AA&O x 4 Skin: warm, dry, intact, no rashes or lesions HEENT: NC/AT, PERRL, EOMI, anicteric sclera, conjunctiva without injection, external ear normal to inspection and nontender, nares patent, moist mucus me mbranes, dentition intact, no oropharyngeal lesions, neck supple, trachea midline, no LAD, no thyromegaly, no JVD, no papilledema on limited bedside fundoscopic exam Heart: +S1/S2, regular, 2/6 ZACHARY at left sternal border with radiation to carotids, no rubs/gallops, no JVD Lungs: equal air entry bilaterally, crackles in bilateral bases, no rhonchi/wheezes Abd: +BS, soft, NT/ND, no masses/organomegaly/ascites Ext: warm, 2+ pulses in UE/LE bilaterally, s/p TMA left foot, 3+ pitting edema of bilateral LE, L > R to thighs, abdominal wall Neuro: nonfocal, patient AA&O x 4, speech intact, no facial droop, moving all extremities on command with equal strength 5/5 Results & Data Results & Data ([facility]) Vital Signs (Past 12 Hours) Vital Signs Temp Pulse Resp BP BP Pulse Ox 10/22/21 19:59 36.9 C 70 16 187/69 H 94 10/22/21 16:04 36.5 C 77 20 197/82 H 96 10/22/21 11:20 36.8 C 69 22 216/65 H 96 PG Care Time/CCT Total # of Minutes Spent Total Time Spent with Patient: Total time spent is greater than 50% in coordination of care (as documented) at patient's floor/unit and/or counseling patient: Coding Level of Care Code 66362 Subseq Hosp Care Lvl 2 Diagnoses Hypertensive urgency I16.0 Edema R60.9 Diabetes E11.9 Hypothyroid E03.9 Time Spent (min) 25
[2021-10-23] MEDS: LEVOTHYROXINE SODIUM 25 MCG TABLET PO SCH ×2 (06:29→06:36)
[2021-10-23] MEDS: INSULIN ASPART PER UNIT SC SCH ×4 (07:38→21:46)
[2021-10-23] MEDS: ENOXAPARIN INJ 40 MG/0.4 ML SYR SQ SCH (08:17)
[2021-10-23] MEDS: CHLORTHALIDONE 25 MG TAB PO SCH (08:17)
[2021-10-23] MEDS: INSULIN GLARGINE SOLOSTAR 100 UNITS/ML 3 ML PEN SC SCH ×2 (08:18→21:45)
[2021-10-23] MEDS: METOPROLOL TARTRATE 25 MG TAB PO SCH ×2 (08:18→21:42)
[2021-10-23 08:58] LABS: Hematocrit (blood only) 30.3 % (37-47); Hemoglobin 10.1 g/dL (12.0-16.0); Mean Corpuscular Hemoglobin 30.7 pg (25-34); Mean Corpuscular Hgb Conc 33.3 g/dL (32-36); Mean Corpuscular Volume 92.1 fL (80-100); Mean Platelet Volume 10.2 fL (7.4-10.4); Platelet Count 254 K/uL (130-400); RDW Coefficient of Variation 12.7 % (11.5-14.5); RDW Standard Deviation 42.9 fL (36.4-46.3); Red Blood Count 3.29 M/uL (4.2-5.4); White Blood Count 6.98 K/uL (4.8-10.8)
[2021-10-23 09:26] LABS: Calcium 8.8 mg/dl (8.5-10.1); Creatinine Clr Calc Pharmacy 47.6 ml/min; Est GFR (African American) 51.3 ml/min; Est GFR (Non-African American) 44.2 ml/min; Potassium 4.8 mmol/L (3.5-5.1)
--- NOTE | 2021-10-23 13:46 | Consultation ---
Date of Consultation October 23, 2021 Assessment & Plan (1) Renal artery stenosis: Pt does have moderate stenosis of R renal artery. She was admitted with hypertensive urgency, but was only on 1 antihypertensive med as outpt. Renal fxn is essentially maintained. Recommend increasing oral antihypertensives for improved BP control. No indications for vascular surgical intervention at this time. Would be happy to reevaluate pt if she continues to have poor control despite maximum doses of 5+ antihypertensives. This was explained to the patient. Please call if needed. History of Present Illness Reason for Consultation: MARITO Attending Physician: Levi Irving History of Present Illness 61 yo f with hx of HTN, COPD, DMII, alcoholism, neuropathy, pulmonary nodules, admitted with hypertensive urgency, seen in consultation today for MARITO noted on CTA. Pt states she has been experiencing increased BLE edema and bloating over past 1-2 weeks, and the [facility] physician gave her lasix. Her BP has also been elevated, and she was sent to [facility] when her pressures became concerning. Pt states slight improvement since being here, but not resolved. No hx of MARITO in past. Was on metoprolol for HTN prior to admission. Pt denies MCNEAL, fever, chest pain, SOB, abd pain, N/V, rest pain, claudication, other complaints. CTA demonstrates moderate stenosis of R renal artery and mild in L. Allergies Allergy/AdvReac Type Severity Reaction Status Date / Time No Known Allergies Allergy Verified 10/20/21 19:28 Home Medications Medication Instructions Recorded Confirmed Type acetaminophen 650 mg 650 mg PO Q12H 10/20/21 10/20/21 History tablet,extended release (Tylenol Arthritis Pain) albuterol sulfate 2.5 mg INHALATION QID PRN 10/20/21 10/20/21 History furosemide 20 mg tablet (Lasix) 20 mg PO BID 10/20/21 10/20/21 History insulin NPH isoph U-100 human 100 16 unit SUBCUT HS 10/20/21 10/20/21 History unit/mL subcutaneous suspension (Novolin N NPH U-100 Insulin isophane) insulin NPH isoph U-100 human 100 18 unit SUBCUT QAM 10/20/21 10/20/21 History unit/mL subcutaneous suspension (Novolin N NPH U-100 Insulin isophane) levothyroxine 25 mcg tablet 25 mcg PO DAILY 10/20/21 10/20/21 History metoprolol tartrate 25 mg tablet 12.5 mg PO BID 10/20/21 10/20/21 History Patient History Medical History (Updated 10/23/21 @ 13:42 by Lakisha Hong PA-C) Acute head injury Acute hyponatremia Avulsed toenail Diabetes Diabetic neuropathy Hypertension Hypokalemia Hypomagnesemia Hypothyroid Renal artery stenosis Tinea pedis Surgical History History of amputation Family History Father Dementia in his 80s Mother , in her 70s Diabetes Social History Smoking Status: Former smoker Tobacco Type: Cigarettes Cigarettes Per Day: 20; Smoking End Date: 3 months ago; Second Hand Exposure: Yes; Do You Dip or Chew Tobacco: No; Tobacco Cessation Education Requested by Patient: No Hx Alcohol Use: Yes Alcohol type: hard liquor Alcohol Intake Frequency Comment: daily, at least 3 shots Hx Substance Use: No Preferred Language: Spanish Communication Ability: Effective Transmission Line Engineer Required: No Beliefs That Will Affect Care: None marital status: Single Current Living Situation: Other Current Living Situation Comment: inmate current occupational status: disabled How many Children do You have: 1 How many Children do You have Comment: son Feels Safe at Home: Yes Assistive Devices: Denture - Upper, Denture - Lower and Glasses Review of Systems Review of Systems: All systems reviewed & are unremarkable except as noted in HPI & below Physical Exam Constitutional: WD/WN, vitals as above healthy appearing, cooperative and comfortable; not in distress ENMT: Ears: no hearing impairment Neck: trachea midline Respiratory: normal respiratory effort, lungs clear to auscultation Auscultation: + diminished lung sounds Cardiovascular: Rate/Rhythm: regular rate and regular rhythm Vessels: posterior tibial pulses present, dorsalis pedis pulses present and radial pulses present; no carotid bruit and + abnormal peripheral pulses Extremities: normal capillary refill and + edema (mild BLE) Gastrointestinal (Abdomen): Inspection/Auscultation: abdomen normal to inspection and normal bowel sounds Percussion/Palpation: abdomen soft; abdomen nontender Musculoskeletal: no cyanosis or clubbing, extremities motor strength 5/5 Skin: no rashes, warm and dry Neurologic: moves all extremities; no focal motor deficits, + not awake and not confused Psychiatric: A+Ox3, euthymic affect Results & Data ([facility]) Vital Signs (Past 12 Hours) Vital Signs Temp Pulse Pulse Resp BP BP Pulse Ox 10/23/21 11:36 69 10/23/21 11:15 36.8 C 57 L 16 193/70 H 97 10/23/21 07:29 36.6 C 57 L 18 193/71 H 95 10/23/21 03:32 36.7 C 55 L 18 169/62 H 94
[2021-10-23] MEDS ORDERED: SPIRONOLACTONE 25 MG TAB PO ONE (13:53)
--- NOTE | 2021-10-23 20:16 | Hospitalist Progress Note ---
Date of Service October 23, 2021 Assessment & Plan (1) Hypertensive urgency: Plan: Due to right renal artery stenosis. 61yo female with history of hypertension presenting with hypertensive urgency. Patient is presently taking only Metoprolol for her blood pressure. She reports her readings have been fairly high for the last week, associated with worsening bilateral LE edema and weight gain. She has been compliant with her medications. No stimulant or OTC medications. No symptoms of end-organ dysfunction - specifically no CP, MCNEAL, neurological deficit, back pain. She was given Labetalol 10mg IV in the ER, Nitro past placed and Clonidine 0.1mg x 1 with some improvement. Goal to reduce BP by 25% MAP over the next several hours. Initial MAP = 134. Goal MAP for the next several hours = 100 Upon review of prior blood pressures - she seems to be chronically high - cautious management -Admit to PCU -Continue Labetalol 12.5mg po daily -Labetalol 10mg IV q 4 hours as needed for BP >200/110 -Lasix given - will continue diuresis - Renal artery duplex ordered: showed MARITO on right CT scan confirmed. -added petros inhibitor, Calcium channel ryan, thiazide, spirinolactone will increase lisinopril to 20 mg Chlorthalidone to 25 mg -consulted vascular for renal artery stenosis Continue conservative management for now. (2) Edema: Plan: Patient reports progressive bilateral LE edema as well as weight gain of appx 20# over the last 10 days. Ddx to include CHF, hypothyroidism. Echocardiogram from 06/15/20 with normal LV function, no WMA, mild concentric LVH, EF of 60- 65%, mild MR and TR. Patient with history of hypothyroidism and is to be taking Synthroid but states that this medication gives her a headache. Also with 3+ protein in the urine. -Lasix 40mg IV BID -Monitor electrolytes, renal function, daily standing weights and I/Os -Check 2D echo -Check urine protein and Cr -Encourage patient to take her SYnthroid -LLE does seem to be more swollen into the thigh. Will check doppler to rule out DVT (3) Diabetes: Plan: Well controlled in 2019 with A1C of 5.7. Has diabetic neuropathy - was prev iously on gabapentin -Lantus 7 u BID, ISS -Goal blood sugar 100 - 140 (4) Hypothyroid: Plan: Chronic. Elevated TSH with normal T4 -Continue Synthroid -Repeat labs outpatient in 4-6 weeks (5) CHF (congestive heart failure): Plan: Acute diastolic CHF Patient had evidence of pulmonary congestion. Likely secondary to increased afterload from elevated BP due to renal artery stenosis. Plan: F/E/N - Diuresis as above, monitor electrolytes daily, CC diet as tolerated Ppx - Lovenox for DVT ppx Code - Full per discussion with patient Dispo - Admit to PCU Admission and Anticipated Discharge Date Admission Date: October 21, 2021 Subjective Patient reports no new symptoms Review of Systems Review of Systems: All systems reviewed & are unremarkable except as noted in HPI & below Physical Exam Physical Exam: General: patient resting comfortably, NAD, non-toxic in appearance, AA&O x 4 Skin: warm, dry, intact, no rashes or lesions HEENT: NC/AT, PERRL, EOMI, anicteric sclera, conjunctiva without injection, external ear normal to inspection and nontender, nares patent, moist mucus membranes, dentition intact, no oropharyngeal lesions, neck supple, trachea midline, no LAD, no thyromegaly, no JVD, no papilledema on limited bedside fundoscopic exam Heart: +S1/S2, regular, 2/6 ZACHARY at left sternal border with radiation to carotids, no rubs/gallops, no JVD Lungs: equal air entry bilaterally, crackles in bilateral bases, no rhonchi/wheezes Abd: +BS, soft, NT/ND, no masses/organomegaly/ascites Ext: warm, 2+ pulses in UE/LE bilaterally, s/p TMA left foot, 3+ pitting edema of bilateral LE, L > R to thighs, abdominal wall Neuro: nonfocal, patient AA&O x 4, speech intact, no facial droop, moving all extremities on command with equal strength 5/5 Results & Data Results & Data ([facility]) Vital Signs (Past 12 Hours) Vital Signs Temp Pulse Pulse Resp BP BP Pulse Ox 10/23/21 19:32 37.0 C 62 20 190/69 H 94 10/23/21 15:21 36.8 C 61 17 190/51 H 94 10/23/21 15:02 60 10/23/21 11:36 69 10/23/21 11:15 36.8 C 57 L 16 193/70 H 97 PG Care Time/CCT Total # of Minutes Spent Total Time Spent with Patient: Total time spent is greater than 50% in coordination of care (as documented) at patient's floor/unit and/or counseling patient: Coding Level of Care Code 34061 Subseq Hosp Care Lvl 3 Diagnoses Hypertensive urgency I16.0 Edema R60.9 Diabetes E11.9 Hypothyroid E03.9 CHF (congestive heart failure) I50.9 Heart failure chronicity: acute on chronic Heart failure type: unspecified Time Spent (min) 35 (1) CHF (congestive heart failure) Heart failure chronicity: acute on chronic Heart failure type: unspecified Qualified Code(s): I50.9 - Heart failure, unspecified
[2021-10-23] MEDS ORDERED: LACTATED RINGER'S 1,000 ML IV SCH (20:45)
[2021-10-23] MEDS: lisinopril 20 MG TAB PO SCH (21:40)
[2021-10-23] MEDS: amLODIPine BESYLATE 5 MG TAB PO SCH (21:41)
[2021-10-23] MEDS: ACETAMINOPHEN 325 MG TAB PO PRN (22:00)
[2021-10-24] MEDS: LEVOTHYROXINE SODIUM 25 MCG TABLET PO SCH (06:11)
[2021-10-24] MEDS: ACETAMINOPHEN 325 MG TAB PO PRN ×2 (08:25→20:10)
[2021-10-24] MEDS: ENOXAPARIN INJ 40 MG/0.4 ML SYR SQ SCH (08:26)
[2021-10-24] MEDS: CHLORTHALIDONE 25 MG TAB PO SCH (08:28)
[2021-10-24] MEDS: METOPROLOL TARTRATE 25 MG TAB PO SCH ×2 (08:28→20:14)
[2021-10-24] MEDS: INSULIN GLARGINE SOLOSTAR 100 UNITS/ML 3 ML PEN SC SCH ×2 (08:30→21:40)
[2021-10-24] MEDS: INSULIN ASPART PER UNIT SC SCH ×4 (08:33→21:19)
[2021-10-24] MEDS ORDERED: SPIRONOLACTONE 25 MG TAB PO ONE (18:09)
[2021-10-24] MEDS: amLODIPine BESYLATE 5 MG TAB PO SCH (20:13)
[2021-10-24] MEDS: lisinopril 20 MG TAB PO SCH (20:14)
--- NOTE | 2021-10-24 20:45 | Hospitalist Progress Note ---
Date of Service October 24, 2021 Assessment & Plan (1) Hypertensive urgency: Plan: Due to right renal artery stenosis. 61yo female with history of hypertension presenting with hypertensive urgency. On admission, Patient was taking only Metoprolol for her blood pressure. She reports her readings have been fairly high for the last week, associated with worsening bilateral LE edema and weight gain. She has been compliant with her medications. No stimulant or OTC medications. No symptoms of end-organ dysfunction - specifically no CP, MCNEAL, neurological deficit, back pain. Goal to reduce BP by 25% MAP over the next several hours. Initial MAP = 134. Goal MAP for the next several hours = 100 Upon review of prior blood pressures - she seems to be chronically high - cautious management -Admit to PCU -Continue Labetalol 12.5mg po daily -initilaly treated with lasix and labetalol. - Renal artery duplex ordered: showed MARITO on right CT scan confirmed. -Vacualr surgery recommended to treat conservatively. -However, patient is now on Day 2 of moderate dose of: Amlodipine 5 mg, spironolactone 25 mg, lisinopril 20 mg, chlorthalidone 25 mg, metoprolol 12.5. do no want to increase the toprol due to HR. should reach out to vascular surgery in AM, as BP remains above goal. (2) Edema: Plan: Patient reports progressive bilateral LE edema as well as weight gain of appx 20# over the last 10 days. Ddx to include CHF, hypothyroidism. Echocardiogram from 06/15/20 with normal LV function, no WMA, mild concentric LVH, EF of 60- 65%, mild MR and TR. Patient with history of hypothyroidism and is to be taking Synthroid but states that this medication gives her a headache. Also with 3+ protein in the urine. -Lasix 40mg IV BID -Monitor electrolytes, renal function, daily standing weights and I/Os -Checked 2D echo -Check urine protein and Cr -Encourage patient to take her SYnthroid -LLE does seem to be more swollen into the thigh. U/S ruled out DVT (3) Diabetes: Plan: Well controlled in 2019 with A1C of 5.7. Has diabetic neuropathy - was previously on gabapentin -Lantus 7 u BID, ISS -Goal blood sugar 100 - 140 (4) Hypothyroid: Plan: Chronic. Elevated TSH with normal T4 -Continue Synthroid -Repeat labs outpatient in 4-6 weeks (5) CHF (congestive heart failure): Plan: Acute diastolic CHF Patient had evidence of pulmonary congestion. Likely secondary to increased afterload from elevated BP due to renal artery stenosis. Plan: F/E/N - Diuresis as above, monitor electrolytes daily, CC diet as tolerated Ppx - Lovenox for DVT ppx Code - Full per discussion with patient Dispo - Admit to PCU Admission and Anticipated Discharge Date Admission Date: October 21, 2021 Subjective 61 yo female reports no new symptoms. Review of Systems Review of Systems: All systems reviewed & are unremarkable except as noted in HPI & below Physical Exam Physical Exam: General: patient resting comfortably, NAD, non-toxic in appearance, AA&O x 4 Skin: warm, dry, intact, no rashes or lesions HEENT: NC/AT, PERRL, EOMI Heart: +S1/S2, regular, no rubs/gallops, no JVD Lungs: equal air entry bilaterally, crackles in bilateral bases, no rhonchi/wheezes Abd: +BS, soft, NT/ND, no masses/organomegaly/ascites Ext: warm, 2+ pulses in UE/LE bilaterally, s/p TMA left foot Neuro: nonfocal, patient AA&O x 4, speech intact, no facial droop, moving all extremities on command with equal strength 5/5 Results & Data Results & Data ([facility]) Vital Signs (Past 12 Hours) Vital Signs Temp Pulse Pulse Resp BP BP Pulse Ox 10/24/21 20:04 36.7 C 62 12 200/71 H 189/65 H 93 10/24/21 16:24 57 L 10/24/21 15:09 36.9 C 60 18 173/59 H 95 10/24/21 12:42 53 L 10/24/21 11:10 36.5 C 57 L 16 182/65 H 96 PG Care Time/CCT Total # of Minutes Spent Total Time Spent with Patient: Total time spent is greater than 50% in coordination of care (as documented) at patient's floor/unit and/or counseling patient: Coding Level of Care Code 74988 Subseq Hosp Care Lvl 3 Diagnoses Hypertensive urgency I16.0 Edema R60.9 Diabetes E11.9 Hypothyroid E03.9 CHF (congestive heart failure) I50.9 Heart failure chronicity: acute on chronic Heart failure type: unspecified Time Spent (min) 35 (1) CHF (congestive heart failure) Heart failure chronicity: acute on chronic Heart failure type: unspecified Qualified Code(s): I50.9 - Heart failure, unspecified
[2021-10-25] MEDS: LEVOTHYROXINE SODIUM 25 MCG TABLET PO SCH (06:25)
[2021-10-25 07:52] LABS: Hematocrit (blood only) 32.4 % (37-47); Hemoglobin 10.5 g/dL (12.0-16.0); Mean Corpuscular Hemoglobin 30.4 pg (25-34); Mean Corpuscular Hgb Conc 32.4 g/dL (32-36); Mean Corpuscular Volume 93.9 fL (80-100); Mean Platelet Volume 10.7 fL (7.4-10.4); Platelet Count 278 K/uL (130-400); RDW Coefficient of Variation 12.8 % (11.5-14.5); RDW Standard Deviation 43.6 fL (36.4-46.3); Red Blood Count 3.45 M/uL (4.2-5.4); White Blood Count 7.03 K/uL (4.8-10.8)
--- NOTE | 2021-10-25 08:23 | Hospitalist Progress Note ---
Date of Service October 25, 2021 Assessment & Plan (1) Hypertensive urgency: Plan: Sumaya is a 61 year old female w/ PmHx DM w/ peripheral neuropathy, HTN, HLD admitted for hypertensive urgency. Hypertensive urgency: -Hypertensive on entry to hospital >200 systolic and >100 diastolic -Patient asymptomatic, no evidence of end organ damage, creatinine elevated to 1.24 but may be more due to patient being dry from diuretic use. -Renal ultrasound showed moderate stenosis of right renal artery but unlikely cause of consistently elevated blood pressure. -Vascular surgery consulted and recommended conservative treatment with medications before any re-evaluation. -Not convinced of a CHF picture given echo with normal EF 60-65%. -Patient on low to moderate dosing of amlodipine 5mg, spironolactone 25mg, lisinopril 20mg, chlorthalidone 25mg, and metoprolol 12.5mg -Blood pressure MAP still hanging around 100, may take some modification of medications to get under control. -Can do so in outpatient setting once patient feels better with ambulation and breathing. Edema: -B/l leg edema most likely due to venous stasis given patient having increased creat and poor response to Lasix. -Encouraged patient to ambulate as one of the best ways to get the venous stasis build up to go down. Hypothyroidism: -Patient does not want to take levothyroxine because she said it gives her headaches and tastes bad. -TSH 9.689, encouraged to take levothyroxine. Diabetes: -Lantus 7 u BID, ISS -Goal blood sugar 100 - 140 F/E/N - daily BMP, regular diet. Ppx - Lovenox for DVT ppx Code - Full code Dispo - PCU (2) Edema: (3) Diabetes: (4) Hypothyroid: Admission and Anticipated Discharge Date Admission Date: October 21, 2021 Supervising Physician Co-Signing Physician Notes I personally examined the patient and verified all [place] points of history and exam, discussed case, and agree with decision making with Dr Garcia Feeling better overall. Still may be feels a little short of breath, has not really been up and walking much though. Notes ongoing lower extremity edema left worse than right. Notes whenever she was admitted she had shortness of breath as well as worsening lower extremity edema, overall improving. Vitals noted, in general she is awake and alert pleasant no distress. HEENT normocephalic atraumatic mucous membranes moist. Breathing unlabored lungs overall clear however she does have diminished air entry bibasilar. No rales rhonchi or wheezes. Good effort. Left greater than right bilateral lower extremity edema, no calf tenderness. Hypertensive crisis as manifest by acute diastolic CHF/pulmonary edemaoverall improved. Blood pressure much more reasonable, although still technically uncontrolledbut has had quite a bit of medication adjustments, and is now essentially asymptomatic with her blood pressurewould keep on current medications for now and allow time for her to adapt. Does not appear to have chronic diastolic CHF at all, although certainly at risk for it with her blood pressures if unmanaged. Asymmetric edemano clots. Pleural effusionslikely from acute failure. We will have her ambulate, if she has manageable levels of dyspnea on exertion, then outpatient follow-up/serial x-rays and thoracentesis if does not resolve. If she has unmanageable dyspnea, then would ask for evaluation for thoracentesis prior to discharge. Otherwise as above Subjective No overnight events. Patient without complaints this morning, ate her breakfast fine. Denies fevers, chills, shortness of breath, urinary frequency/dysuria, constipation, diarrhea. Physical Exam Constitutional: WD/WN, vitals as above Eyes: PERRL, conjunctivae normal, anicteric sclerae Respiratory: Diminished breath sounds at the bilateral lower lung bases, otherwise clear to auscultation. Cardiovascular: RRR, no murmur, no edema Gastrointestinal (Abdomen): normal bowel sounds, soft, nontender, no hepatosplenomegaly Results & Data Results & Data ([facility]) Vital Signs (Past 12 Hours) Vital Signs Temp Pulse Pulse Resp BP BP Pulse Ox 10/25/21 07:38 52 L 10/25/21 07:30 36.5 C 58 L 19 178/53 H 94 10/25/21 03:45 36.6 C 53 L 168/70 H 95 10/24/21 23:05 36.8 C 58 L 18 180/53 H 95 10/24/21 22:20 55 L 10/24/21 22:00 Pulse Ox 10/25/21 07:38 10/25/21 07:30 10/25/21 03:45 10/24/21 23:05 10/24/21 22:20 10/24/21 22:00 93
[2021-10-25 08:26] LABS: BUN Creatinine Ratio 30.6 (10-20); Calcium 9.1 mg/dl (8.5-10.1); Creatinine Clr Calc Pharmacy 49.8 ml/min; Est GFR (African American) 54.3 ml/min; Est GFR (Non-African American) 46.8 ml/min; Potassium 4.5 mmol/L (3.5-5.1)
[2021-10-25] MEDS: METOPROLOL TARTRATE 25 MG TAB PO SCH ×2 (08:49→21:13)
[2021-10-25] MEDS: INSULIN ASPART PER UNIT SC SCH ×4 (08:49→21:00)
[2021-10-25] MEDS: CHLORTHALIDONE 25 MG TAB PO SCH (08:49)
[2021-10-25] MEDS: ENOXAPARIN INJ 40 MG/0.4 ML SYR SQ SCH (08:49)
[2021-10-25] MEDS: INSULIN GLARGINE SOLOSTAR 100 UNITS/ML 3 ML PEN SC SCH ×2 (08:49→21:03)
[2021-10-25] MEDS ORDERED: SPIRONOLACTONE 25 MG TAB PO SCH (09:00)
[2021-10-25] MEDS ORDERED: SPIRONOLACTONE 25 MG TAB PO ONE (12:55)
--- NOTE | 2021-10-25 18:15 | Billing Data ---
Date of Service October 25, 2021 Coding Level of Care Code 46305 Subseq Hosp Care Lvl 3
[2021-10-25] MEDS: lisinopril 20 MG TAB PO SCH (21:12)
[2021-10-25] MEDS: amLODIPine BESYLATE 5 MG TAB PO SCH (21:13)
[2021-10-26] MEDS: LEVOTHYROXINE SODIUM 25 MCG TABLET PO SCH (06:22)
[2021-10-26 07:16] LABS: BUN Creatinine Ratio 33.3 (10-20); Creatinine Clr Calc Pharmacy 58.8 ml/min; Est GFR (African American) 66.4 ml/min; Est GFR (Non-African American) 57.3 ml/min; Potassium 4.6 mmol/L (3.5-5.1)
--- NOTE | 2021-10-26 07:45 | Hospitalist Progress Note ---
Date of Service October 26, 2021 Assessment & Plan (1) Hypertensive urgency: Plan: Sumaya is a 61 year old female w/ PmHx DM w/ peripheral neuropathy, HTN, HLD admitted for hypertensive urgency. Hypertensive urgency: -Hypertensive on entry to hospital >200 systolic and >100 diastolic -Patient asymptomatic, no evidence of end organ damage, creatinine elevated to 1.24 but may be more due to patient being dry from diuretic use. -Renal ultrasound showed moderate stenosis of right renal artery but unlikely cause of consistently elevated blood pressure. -Vascular surgery consulted and recommended conservative treatment with medications before any re-evaluation. -Not convinced of a CHF picture given unremarkable echo with EF 60-65%. -Patient on low to moderate dosing of amlodipine 5mg BID, spironolactone 25mg, lisinopril 20mg, chlorthalidone 25mg, and metoprolol 12.5mg -Blood pressure MAP still hanging around 100, may take some modification of medications to get under control. -Can do so in outpatient setting once patient feels better with ambulation and breathing. Dysnpea on exertion: -CTA Abd/pelv: There is a moderately large right pleural effusion with compressive atelectasis/collapse involving the right lower lobe. There is small left pleural effusion with left basilar atelectasis. -Most likely pulmonary effusion from hypertensive urgency induced acute pulmonary edema. -Patient still symptomatic with exertion but w/o saturation issues. -Discussed options of conservative treatment vs therapeutic right pleural thoracentesis. -Will consult pulmonology for possibility of thoracentesis and appreciate recs. Edema/Venous Stasis: -B/l leg edema most likely due to venous stasis given patient having increased creat and poor response to Lasix. -Encouraged patient to ambulate as one of the best ways to get the venous stasis build up to go down. Hypothyroidism: -Patient does not want to take levothyroxine because she said it gives her headaches and tastes bad. -TSH 9.689, encouraged to take levothyroxine. Diabetes: -Lantus 7 u BID, ISS -Goal blood sugar 100 - 140 F/E/N - daily BMP, regular diet. Ppx - Lovenox for DVT ppx Code - Full code Dispo - PCU (2) Edema: (3) Diabetes: (4) Hypothyroid: Admission and Anticipated Discharge Date Admission Date: October 21, 2021 Supervising Physician Co-Signing Physician Notes I personally examined the patient and verified all [place] points of history and exam, discussed case, and agree with decision making with Dr Garcia Feeling about the samedid walk the hallways, and while she did not become unstable, she noted that she had quite significant dyspnea on exertion. Vitals noted, in general she is awake and alert pleasant no distress. HEENT normocephalic atraumatic mucous membranes moist. Breathing unlabored no accessory muscle use no conversational dyspnea good effort. Skin no rashes, pallor, icterus Hypertensive crisis as manifest by acute diastolic CHF/pulmonary edemaoverall improved. Blood pressure much more reasonable, although still technically uncontrolledbut has had quite a bit of medication adjustments, and is now essentially asymptomatic with her blood pressurebut given that her numbers are still quite highwill increase amlodipine to twice daily, otherwise keep everything else the same and allow her body time to adapt Does not appear to have chronic diastolic CHF at all, although certainly at risk for it with her blood pressures if unmanaged. Asymmetric edemano clots. Pleural effusionslikely from acute failure. Pleural effusionsalmost certainly due to failure, but given that her right effusion is at least moderate, and she is having fairly significant dyspnea on exertion, will ask pulmonary for an evaluation for therapeutic thoracentesis for symptom alleviation. Otherwise as above Subjective No overnight events. Patient without complaints this morning, ate her breakfast fine. Denies fevers, chills, shortness of breath, urinary frequency/dysuria, constipation, diarrhea at this time. She was able to walk through the hallway yesterday but said she still had shortness of breath with exertion feeling like she couldn't take deep breaths. Discussed with the patient conservative treatment vs the possibility of therapeutic drainage of the larger right pleural effusion. She would be okay with therapeutic pleural effusion. Physical Exam Constitutional: WD/WN, vitals as above Eyes: PERRL, conjunctivae normal, anicteric sclerae Respiratory: Mildly decreased breath sounds at the lung bases bilaterally, otherwise clear to auscultation. Cardiovascular: Rate/Rhythm: regular rate and regular rhythm Heart Sounds: normal S1 and normal S2 Extremities: + edema Gastrointestinal (Abdomen): normal bowel sounds, soft, nontender, no hepatosplenomegaly Results & Data Results & Data ([facility]) Vital Signs (Past 12 Hours) Vital Signs Temp Pulse Pulse Resp BP Pulse Ox 10/26/21 04:13 36.7 C 56 L 12 189/45 H 95 10/26/21 02:22 52 L 10/26/21 00:40 36.5 C 51 L 18 178/68 H 97 10/25/21 19:57 37.4 C 52 L 16 166/59 H 97 Resident Activity Tracking Resident Involvement: Resident Care Provided Care Provided: Adult Hospital Medicine
[2021-10-26] MEDS: INSULIN ASPART PER UNIT SC SCH ×4 (07:51→21:55)
[2021-10-26] MEDS: ENOXAPARIN INJ 40 MG/0.4 ML SYR SQ SCH (09:53)
[2021-10-26] MEDS: CHLORTHALIDONE 25 MG TAB PO SCH (09:53)
[2021-10-26] MEDS: amLODIPine BESYLATE 5 MG TAB PO SCH ×2 (09:53→22:59)
[2021-10-26] MEDS: METOPROLOL TARTRATE 25 MG TAB PO SCH ×2 (09:54→22:59)
[2021-10-26] MEDS: INSULIN GLARGINE SOLOSTAR 100 UNITS/ML 3 ML PEN SC SCH ×2 (09:54→22:19)
[2021-10-26] MEDS: SPIRONOLACTONE 25 MG TAB PO SCH (09:54)
--- NOTE | 2021-10-26 13:40 | Billing Data ---
Date of Service October 26, 2021 Coding Level of Care Code 17636 Subseq Hosp Care Lvl 3
--- NOTE | 2021-10-26 13:42 | Billing Data ---
Date of Service October 26, 2021 Coding Level of Care Code 57508 Subseq Hosp Care Lvl 3
--- NOTE | 2021-10-26 17:03 | XRay Report ---
XR chest 1V portable HISTORY: 61 years-old Female dyspnea acute shortness of breath COMPARISON: Chest radiograph 10/20/2021 TECHNIQUE: Portable AP view of the chest FINDINGS: The cardiac silhouette is enlarged. Mild pulmonary vascular congestion. Mild interstitial coarsening. No pneumothorax. Layering pleural effusions with bibasilar consolidation, progressively worsened on the left. Bones appear grossly intact. IMPRESSION: 1. Cardiomegaly with pulmonary edema. 2. Layering pleural effusions with bibasilar consolidation, progressed on the left. ACT 112: Negative or not required by law. The above report was generated using voice recognition software. It may contain grammatical, syntax o r spelling errors. Electronically signed by: Olman Rodriguez M.D. 10/26/2021 5:01 PM
[2021-10-26 17:25] LABS: INR 1.1 (0.9-1.1); Prothrombin Time 11.9 Seconds (9.0-12.0)
[2021-10-26] MEDS: lisinopril 20 MG TAB PO SCH (23:00)
[2021-10-27] MEDS: LEVOTHYROXINE SODIUM 25 MCG TABLET PO SCH (06:11)
--- NOTE | 2021-10-27 07:13 | Hospitalist Progress Note ---
Date of Service October 27, 2021 Assessment & Plan (1) Hypertensive urgency: Plan: Sumaya is a 61 year old female w/ PmHx DM w/ peripheral neuropathy, HTN, HLD admitted for hypertensive urgency. Hypertensive urgency: -Hypertensive on entry to hospital >200 systolic and >100 diastolic -Patient asymptomatic, no evidence of end organ damage, creatinine elevated to 1.24 but may be more due to patient being dry from diuretic use outpatient. -Renal US: moderate stenosis of R renal artery but unlikely cause of consistently elevated blood pressure. -Vascular surgery consulted. -Conservative treatment with at least 5 medications on maximum dosage before re-evaluation. -Not convinced of a CHF picture given unremarkable echo with EF 60-65%. -Patient on low to moderate dosing of amlodipine 5mg BID, spironolactone 25mg, lisinopril 20mg, chlorthalidone 25mg, and metoprolol 12.5mg -Blood pressure MAP still hanging around 100. Can continue to modify BP medications in outpatient setting. Dysnpea on exertion: -CTA Abd/pelv: There is a moderately large right pleural effusion with compressive atelectasis/collapse involving the right lower lobe. There is small left pleural effusion with left basilar atelectasis. -Most likely pulmonary effusion from hypertensive urgency. -Discussed options of conservative treatment vs therapeutic right pleural thoracentesis. -Pulmonology consulted, thoracentesis performed 10/27. -Encouraged patient to do breathing exercises as well as ambulate. Will re- evaluate in morning. Edema/Venous Stasis: -B/l leg edema most likely due to venous stasis given patient having increased creat and poor response to Lasix. -Encouraged patient to ambulate as one of the best ways to get the venous stasis build up to go down. Hypothyroidism: -Patient does not want to take levothyroxine because she said it gives her headaches and tastes bad. -TSH 9.689, encouraged to take levothyroxine but patient still does not want to take. Diabetes: -Lantus 7 u BID, ISS -Goal blood sugar 100 - 140 F/E/N - daily BMP, regular diet. Ppx - Lovenox for DVT ppx Code - Full code Dispo - Med/Surg (2) Edema: (3) Diabetes: (4) Hypothyroid: Admission and Anticipated Discharge Date Admission Date: October 21, 2021 Supervising Physician Co-Signing Physician Notes I personally examined the patient and verified all [place] points of history and exam, discussed case, and agree with decision making with Dr Garcia just had thoracentesis. notes too soon to really see if she is feeling better. Pulmonary input appreciated. Vitals noted, in general she is awake and alert pleasant no distress. HEENT normocephalic atraumatic mucous membranes moist. Breathing unlabored no accessory muscle use no conversational dyspnea good effort., Better air entry throughout, faint mild wheeze mid and upper lung. Skin no rashes, pallor, icterus Hypertensive crisis as manifest by acute diastolic CHF/pulmonary edemaoverall improved. Blood pressure much more reasonable, although still technically uncontrolledbut for now we will leave meds "as is" and give her body more time to adapt. Does not appear to have chronic diastolic CHF at all, although certai nly at risk for it with her blood pressures if unmanaged, but to clarify I suspect her pulmonary edema was acute diastolic CHF due to hypertensive crisis. Asymmetric edemano clots. Pleural effusionslikely from acute failure. Pleural effusionsalmost certainly due to failure, will still fairly symptomaticappreciate pulmonary thoracentesis. Await studies, although anticipate CHF related. As long as her breathing remains stable and her dyspnea on exertion is better, anticipate being able to be discharged with outpatient follow-up as soon as tomorrow. Otherwise as above Subjective No overnight events. Patient says she is the same as yesterday, gets short of breath with walking to the bathroom and back. Says her leg edema not much dif ferent from yesterday, maybe a little less today. Denies shortness of breath at rest, chest pain, fevers. Review of Systems Review of Systems: As per subjective. Physical Exam Constitutional: WD/WN, vitals as above Eyes: PERRL, conjunctivae normal, anicteric sclerae Respiratory: Mild wheezing at bilateral lung keller, mild decrease in lung sounds at bilateral lung bases. Cardiovascular: Rate/Rhythm: regular rate and regular rhythm Heart Sounds: normal S1 and normal S2 Extremities: + edema Gastrointestinal (Abdomen): normal bowel sounds, soft, nontender, no hepatosplenomegaly Results & Data Results & Data ([facility]) Vital Signs (Past 12 Hours) Vital Signs Temp Pulse Resp BP Pulse Ox 10/26/21 21:47 36.6 C 55 L 18 185/73 H 96 Resident Activity Tracking Resident Involvement: Resident Care Provided Care Provided: Adult [facility]
[2021-10-27] MEDS: CHLORTHALIDONE 25 MG TAB PO SCH (08:09)
[2021-10-27] MEDS: amLODIPine BESYLATE 5 MG TAB PO SCH ×2 (08:09→20:12)
[2021-10-27] MEDS: INSULIN ASPART PER UNIT SC SCH ×4 (09:19→20:33)
[2021-10-27] MEDS: ENOXAPARIN INJ 40 MG/0.4 ML SYR SQ SCH (09:20)
[2021-10-27] MEDS: INSULIN GLARGINE SOLOSTAR 100 UNITS/ML 3 ML PEN SC SCH ×2 (09:21→20:32)
[2021-10-27] MEDS: SPIRONOLACTONE 25 MG TAB PO SCH (09:21)
[2021-10-27] MEDS: METOPROLOL TARTRATE 25 MG TAB PO SCH ×2 (10:46→22:32)
--- NOTE | 2021-10-27 11:36 | Pulmonary Consultation ---
Date of Consultation October 27, 2021 Assessment & Plan (1) Pleural effusion: (2) Dyspnea: Dyspnea type: shortness of breath Qualified Code(s): R06.02 - Shortness of breath (3) Diastolic heart failure: Impression: 61-year-old female with diastolic heart failure and fluid overload with bilateral pleural effusions. She is not yet been aggressively diuresed but continues to have shortness of breath. Her effusions remain persistent on chest x-ray today. Recommendations: 1. Pleural effusions: The patient was advised that to treat diastolic heart failure and associated pleural effusions we need to target blood pressure less than 125/75. She should adhere to a low-salt diet. Diuretics are also recommended. She is not yet net negative. Her current regimen consists of chlorthalidone and Aldactone. We will discontinue the chlorthalidone and place her on Lasix 40 mg IV daily. Would target 1 to 2 L negative every 24 hours with attention to renal function and serum electrolytes. We discussed thoracentesis. This may provide her some short-term benefit but if her blood pressure is not controlled and volume status is not improved, the effusions will likely reaccumulate. She expressed understanding and is in agreement to undergo ultrasound based catheter thoracentesis. She is on amlodipine which can potentially aggravate her lower extremity edema. 2. Dyspnea: Likely secondary to #1. We will see if she improves. There is a reported history of COPD. She does not appear bronchospastic. No indication for inhalers. 3. Hypertension: Management per primary service with targets as noted above. See comments regarding amlodipine above. Will defer additional changes to the patient's primary admitting service We will continue to follow with results of her pleural fluid analysis and follow-up imaging. Feel free to contact us with questions or concerns History of Present Illness Attending Physician: Champ Salmeron, DO History of Present Illness Asked by hospitalist to evaluate this patient with bilateral pleural effusions hypertensive urgency and peripheral edema. History is obtained from reviewed electronic medical record as well as interview the patient. The patient is a 61-year-old female who was admitted to the hospital 10/20/2021. She has a history of diabetes and hypertension. She had progressive lower extremity edema and shortness of breath. She is found to be in hypertensive urgency. She had an echocardiogram performed which demonstrated an EF of 60 to 65% with mild and mild MR. E to E prime ratio of 34 consistent with significant diastolic dysfunction. The patient is not on oxygen but has continued shortness of breath. She had a CT scan performed a few days ago demonstrating bilateral pleural effusions with some compressive atelectasis. She has persistent lower extremity edema. Review of her eyes nose demonstrates that she is actually 2 L positive since hospital admission. Pulmonary was consulted for possible thoracentesis. Patient denies fevers chills or night sweats. She is not coughing. She feels short of breath with significant activity. No wheezing. Allergies Allergy/AdvReac Type Severity Reaction Status Date / Time No Known Allergies Allergy Verified 10/20/21 19:28 Home Medications Medication Instructions Recorded Confirmed Type acetaminophen 650 mg 650 mg PO Q12H 10/20/21 10/20/21 History tablet,extended release (Tylenol Arthritis Pain) albuterol sulfate 2.5 mg INHALATION QID PRN 10/20/21 10/20/21 History furosemide 20 mg tablet (Lasix) 20 mg PO BID 10/20/21 10/20/21 History insulin NPH isoph U-100 human 100 16 unit SUBCUT HS 10/20/21 10/20/21 History unit/mL subcutaneous suspension (Novolin N NPH U-100 Insulin isophane) insulin NPH isoph U-100 human 100 18 unit SUBCUT QAM 10/20/21 10/20/21 History unit/mL subcutaneous suspension (Novolin N NPH U-100 Insulin isophane) levothyroxine 25 mcg tablet 25 mcg PO DAILY 10/20/21 10/20/21 History metoprolol tartrate 25 mg tablet 12.5 mg PO BID 10/20/21 10/20/21 History Patient History Medical History (Updated 10/27/21 @ 11:33 by Ronen Robertson MD) Acute head injury Acute hyponatremia Avulsed toenail Diabetes Diabetic neuropathy Hypertension Hypokalemia Hypomagnesemia Hypothyroid Renal artery stenosis Tinea pedis Surgical History History of amputation Family History Father Dementia in his 80s Mother , in her 70s Diabetes Social History (Reviewed 03/30/22 @ 13:40 by MARÍA Tavares Smoking Status: Former smoker Tobacco Type: Cigarettes Cigarettes Per Day: 20; Smoking End Date: 3 months ago; Second Hand Exposure: Yes; Do You Dip or Chew Tobacco: No; Tobacco Cessation Education Requested by Patient: No Hx Alcohol Use: Yes Alcohol type: hard liquor Alcohol Intake Frequency Comment: daily, at least 3 shots Hx Substance Use: No Preferred Language: Setswana Communication Ability: Effective 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 I have no additions or deletions Physical Exam Constitutional: WD/WN, vitals as above Eyes: PERRL, conjunctivae normal, anicteric sclerae Respiratory: Decreased breath sounds bilateral bases with dullness to percussion Cardiovascular: Rate/Rhythm: regular rate and regular rhythm Heart Sounds: normal S1 and normal S2 Extremities: + edema Gastrointestinal (Abdomen): normal bowel sounds, soft, nontender, no hepatosplenomegaly Results & Data Results & Data ([facility]) Vital Signs (Past 12 Hours) Vital Signs Temp Pulse Resp BP Pulse Ox 10/27/21 08:14 55 L 179/69 H 10/27/21 07:31 36.7 C 53 L 16 188/69 H 97 Critical Care Results & Data Vital Signs (Past 12 Hours) Vital Signs Temp Pulse Resp BP Pulse Ox 10/27/21 10:45 62 184/71 H 10/27/21 08:14 55 L 179/69 H 10/27/21 07:31 36.7 C 53 L 16 188/69 H 97 Lab & Micro Results (Past 24 Hours) No Data to Display No Data to Display Prothromb Time International Ratio 1.1 (0.9-1.1) 10/26/21 16:42 10/26/21 Diagnostic Findings (Past 24 Hours) Chest X-Ray 10/26/21 16:23 XR chest 1V portable HISTORY: 61 years-old Female dyspnea acute shortness of breath COMPARISON: Chest radiograph 10/20/2021 TECHNIQUE: Portable AP view of the chest FINDINGS: The cardiac silhouette is enlarged. Mild pulmonary vascular congestion. Mild interstitial coarsening. No pneumothorax. Layering pleural effusions with bibasilar consolidation, progressively worsened on the left. Bones appear grossly intact. IMPRESSION: 1. Cardiomegaly with pulmonary edema. 2. Layering pleural effusions with bibasilar consolidation, progressed on the left. ACT 112: Negative or not required by law. The above report was generated using voice recognition software. It may contain grammatical, syntax or spelling errors. Electronically signed by: Olman Rodriguez M.D. 10/26/2021 5:01 PM I & O Totals 24 Hours 10/26/21 10/27/21 10/28/21 06:59 06:59 06:59 Intake Total 1040 / 1040 395 / 395 Balance 1040 / 1040 395 / 395 Cumulative 10/20/21 18:08 thru 10/27/21 07:32 Intake Total 4355 Output Total 1817 Balance 2538 RT Ventilator Mngmt (Last Documented) Ventilator Ordered Settings Respiratory Rate 16 10/27/21 07:31 Ventilator - PT Measurements Respiratory Rate 16 PG Care Time/CCT Total # of Minutes Spent Total Time Spent with Patient: Total time spent is greater than 50% in coordination of care (as documented) at patient's floor/unit and/or counseling patient: Coding Level of Care Code 74494 Inpt Consult Level 4 Diagnoses Pleural effusion J90 Dyspnea R06.02 Dyspnea type: shortness of breath Diastolic heart failure I50.30
--- NOTE | 2021-10-27 11:38 | Procedure Note ---
Procedure Note Date of Service October 27, 2021 Note Procedure: Diagnostic therapeutic ultrasound-guided catheter thoracentesis Supervisor Gluing: Dr. Ronen Robertson Indication: Pleural effusion Consent: Signed by patient and verified with timeout prior to procedure Anesthesia: 8 mL's 1% lidocaine without epinephrine local. Procedure: Consent was verified and timeout performed. Appropriate imaging studies were reviewed prior to the procedure. Patient was placed in a seated position and limited thoracic ultrasound was performed of the bilateral chest. A moderate- sized right effusion was noted with some compressive atelectasis. Small left effusion was present. Site appropriate for thoracentesis on the right was selected. The skin was prepped and draped in normal sterile fashion. Lidocaine was used for local analgesia. Fluid was aspirated via the finder needle. A small skin phyllis was made with the scalpel and the catheter over the needle apparatus was advanced over the rib into the pleural space. Using the syringe one-way valve system, a total of 1500mL's of fluid was removed. Procedure was terminated due to patient experiencing some chest pain and coughing. The catheter was removed and observed to be intact. A sterile dressing was applied. Post procedure chest x-ray was ordered. Fluid was sent for cytology, Gram stain and culture, LDH, glucose, total protein, and pH as well as cell count differential The patient tolerated the procedure well without obvious complication Coding CPT Codes Pulmonary/Thoracic - Pulmonary and Thoracic: 60754 Thoracentesis w imaging ([id number][place] [facility] [place] ([place]) Pulmonary/Thoracic Procedure 1: Pulmonary and Thoracic: 99502 Thoracentesis w imaging
--- NOTE | 2021-10-27 12:00 | XRay Report ---
XR chest 1V portable CLINICAL HISTORY: S/P Thoracentesis COMPARISON STUDY: Chest CT July 10, 2021. Chest radiograph October 26, 2021. FINDINGS: Patient is rotated. There is no pneumothorax following right thoracentesis. Right pleural e ffusion has significantly decreased in size. A small left pleural effusion is noted. Bibasilar opacit ies are noted. Right lower lung aeration has improved. Mild pulmonary edema has slightly improved. IMPRESSION: 1. No pneumothorax following right thoracentesis. Significant decrease in size of the right pleural e ffusion. 2. Small left pleural effusion. 3. Mild pulmonary edema, slightly improved. ACT 112: Negative or not required by law. Electronically signed by: Byron Hannah M.D. 10/27/2021 11:59 AM
[2021-10-27 12:20] LABS: Glucose Pleural Fluid 159 mg/dl; LDH Pleural Fluid 62 U/L; Total Protein Pleural Fluid < 3.0 gm/dl
[2021-10-27 12:26] LABS: Appearance Pleural Fluid CLEAR; Basophils, Fluid 0 %; Color Pleural Fluid PALE YELLOW; Eosinophils, Fluid 0 %; Lymphocytes, Fluid 26 %; Mono,Macrophage,Mesothelial 67 %; Neutrophils, Fluid 7 %; RBC Pleural Fluid (A) < 3000 /uL; Source Pleural Fluid RIGHT LUNG; WBC Pleural Fluid (A) 594 /uL
--- NOTE | 2021-10-27 13:53 | Billing Data ---
Date of Service October 27, 2021 Coding Level of Care Code 77167 Subseq Hosp Care Lvl 3
[2021-10-27] MEDS: lisinopril 20 MG TAB PO SCH (20:12)
[2021-10-27] MEDS: ACETAMINOPHEN 325 MG TAB PO PRN (20:12)
[2021-10-28] MEDS: LEVOTHYROXINE SODIUM 25 MCG TABLET PO SCH (05:57)
--- NOTE | 2021-10-28 08:37 | Pulmonology Progress Note ---
Date of Service October 28, 2021 Assessment & Plan (1) Pleural effusion: (2) Dyspnea: Dyspnea type: shortness of breath Qualified Code(s): R06.02 - Shortness of breath (3) Diastolic heart failure: Plan: Impression: 61-year-old female with diastolic heart failure and fluid overload with bilateral pleural effusions. Status post thoracentesis 11/23/2021 with fluid that appears to be transudate of 1. Pleural effusions: Transudate etiology, likely secondary to diastolic heart failure. Continue diuretics and aggressive blood pressure control. Start Lasix 40 mg p.o. daily. Will need to follow electrolytes and renal function. The patient will be contacted if her cytology or cultures on the pleural fluid necessitate additional follow-up which I think is unlikely 2. Dyspnea: Likely secondary to #1. Improved with thoracentesis. There is a reported history of COPD. She does not appear bronchospastic. No indication for inhalers. 3. Hypertension: Increase metoprolol to 25 twice daily. Add hydralazine 25 mg 3 times a day. Pulmonary will sign off at this point time. Feel free to contact us if we can be of additional assistance. Admission and Anticipated Discharge Date Admission Date: October 21, 2021 Subjective Patient seen and examined. EMR reviewed. She feels better. She is able to ambulate. She is less short of breath. She is urinating more frequently with Lasix. She states they are still having issues controlling her blood pressure. No pain at the thoracentesis site. Review of Systems Review of Systems: All systems reviewed & are unremarkable except as noted in Subjective Physical Exam Constitutional: WD/WN, vitals as above Eyes: PERRL, conjunctivae normal, anicteric sclerae Respiratory: normal respiratory effort, lungs clear to auscultation Cardiovascular: Rate/Rhythm: regular rate and regular rhythm Heart Sounds: normal S1 and normal S2 Extremities: + edema Gastrointestinal (Abdomen): normal bowel sounds, soft, nontender, no hepatosplenomegaly Results & Data Results & Data ([facility]) Vital Signs (Past 12 Hours) Vital Signs Temp Pulse Resp BP BP Pulse Ox 10/28/21 07:21 36.7 C 62 16 187/69 H 97 10/27/21 21:30 58 L 150/55 H Laboratory Results 10/25/21 06:57 10/26/21 06:24 Pleural fluid studies: Gram stain rare polys moderate mononuclear cells no organisms, culture pending Cytology pending Differential: 7% neutrophils, 26% lymphocytes, 67% mesothelial cells Pleural pH 7.48 Total protein less than 3 LDH 62 Glucose 159 Diagnostic Findings Post procedure chest x-ray independently reviewed. No evidence of pneumothorax. Small bilateral pleural effusions. PG Care Time/CCT Total # of Minutes Spent Total Time Spent with Patient: Total time spent is greater than 50% in coordination of care (as documented) at patient's floor/unit and/or counseling patient: Coding Level of Care Code 32681 Subseq Hosp Care Lvl 2 Diagnoses Pleural effusion J90 Dyspnea R06.02 Dyspnea type: shortness of breath Diastolic heart failure I50.30
[2021-10-28] MEDS: amLODIPine BESYLATE 5 MG TAB PO SCH ×2 (08:56→20:23)
[2021-10-28] MEDS: SPIRONOLACTONE 25 MG TAB PO SCH (08:56)
[2021-10-28] MEDS: INSULIN GLARGINE SOLOSTAR 100 UNITS/ML 3 ML PEN SC SCH ×2 (08:56→21:34)
[2021-10-28] MEDS: CHLORTHALIDONE 25 MG TAB PO SCH (08:56)
[2021-10-28] MEDS: INSULIN ASPART PER UNIT SC SCH ×4 (08:57→21:33)
[2021-10-28] MEDS ORDERED: METOPROLOL TARTRATE 25 MG TAB PO SCH (09:00)
[2021-10-28] MEDS: hydrALAZINE HCL 25 MG TAB PO SCH ×3 (09:51→20:23)
[2021-10-28] MEDS: FUROSEMIDE 40 MG TAB PO SCH (09:51)
[2021-10-28] MEDS: ENOXAPARIN INJ 40 MG/0.4 ML SYR SQ SCH (09:52)
[2021-10-28] MEDS: carvediloL 12.5 MG TAB PO SCH ×2 (12:55→20:23)
--- NOTE | 2021-10-28 17:55 | Hospitalist Progress Note ---
Date of Service October 28, 2021 Assessment & Plan (1) Hypertensive urgency: Plan: Sumaya is a 61 year old female w/ PmHx DM w/ peripheral neuropathy, HTN, HLD admitted for hypertensive urgency. Hypertensive urgency: -Hypertensive on entry to hospital >200 systolic and >100 diastolic -unclear of the reason for BP spike -Check Nocturnal pulse ox ordered for possible IVY contributing to HTN. -h/o AUD but none in 4mths. -Renal duplex results reviewed. -started on amlodipine 5mg BID, spironolactone 25mg, lisinopril 20mg, chlorthalidone 25mg, hydralazine 25mg TID -Change metoprolol to carvedilol 12.5mg BID. Moderate/large Rt Pleural effusion with Dysnpea on exertion: Acute HFpEF -Most likely pulmonary effusion from hypertensive urgency. -Echo with mild LVH and normal EF -Pulmonology consulted. -Thoracentesis performed 10/27 w/ improvement in breathing. -Added Lasix 40mg PO QAM. -monitor I and Os Edema/Venous Stasis: -Encouraged patient to ambulate as one of the best ways to get the venous stasis build up to go down. h/o Alcohol use ds -no alcohol use in 4mths. -possible underlying anxiety -consider discussion of adding SSRI Hypothyroidism: -Patient does not want to take levothyroxine because she said it gives her headaches and tastes bad. -TSH 9.689, encouraged to take levothyroxine but patient still does not want to take. Diabetes: -Lantus 7 u BID, ISS -Goal blood sugar 100 - 140 F/E/N - daily BMP, regular diet. Ppx - Lovenox for DVT ppx Code - Full code Dispo - Med/Surg (2) Edema: (3) Diabetes: (4) Hypothyroid: Admission and Anticipated Discharge Date Admission Date: October 21, 2021 Supervising Physician Co-Signing Physician Notes Resident Physician Supervision Note: I independently interviewed and examined the patient and verified the [place] history and physical, reviewed labs and image studies and agree with resident Dr. Garcia findings and care plan. Subjective No overnight events. Patient finding it easier to breathe when ambulating to and from bathroom. On inquiring further on previous alcohol use, patient endorsed she was an alcoholic in the past and last had a drink 4 months ago. She used to drink half a fifth of vodka everyday she could. Denies any chest pain, fevers, chills. Review of Systems Review of Systems: As per subjective. Physical Exam Constitutional: WD/WN, vitals as above Eyes: PERRL, conjunctivae normal, anicteric sclerae Respiratory: Diminished breath sounds at lung bases, mild expiratory wheeze bilaterally. Cardiovascular: Rate/Rhythm: regular rate and regular rhythm Heart Sounds: normal S1 and normal S2 Extremities: + edema Gastrointestinal (Abdomen): normal bowel sounds, soft, nontender, no hepatosplenomegaly Results & Data Results & Data ([facility]) Vital Signs (Past 12 Hours) Vital Signs Temp Pulse Resp BP Pulse Ox 10/28/21 14:33 36.8 C 55 L 16 165/74 H 96 10/28/21 07:21 36.7 C 62 16 187/69 H 97 Resident Activity Tracking Resident Involvement: Resident Care Provided Care Provided: Adult Hospital Medicine
[2021-10-28] MEDS: ACETAMINOPHEN 325 MG TAB PO PRN (20:24)
[2021-10-28] MEDS: lisinopril 20 MG TAB PO SCH (21:35)
[2021-10-29] MEDS: LEVOTHYROXINE SODIUM 25 MCG TABLET PO SCH (06:22)
[2021-10-29 07:52] LABS: BUN Creatinine Ratio 38.4 (10-20); Calcium 8.9 mg/dl (8.5-10.1); Est GFR (African American) 71.3 ml/min; Est GFR (Non-African American) 61.5 ml/min; Potassium 5.1 mmol/L (3.5-5.1)
--- NOTE | 2021-10-29 08:23 | Hospitalist Progress Note ---
Date of Service October 29, 2021 Assessment & Plan (1) Hypertensive urgency: Plan: Sumaya is a 61 year old female w/ PmHx DM w/ peripheral neuropathy, HTN, HLD admitted for hypertensive urgency. Hypertensive urgency: -Hypertensive on entry to hospital >200 systolic and >100 diastolic -BP spike from fluid overload, bradycardic compensatory response? -Nocturnal pulse ox showed 4 events of saturations to 80's, lowest HR 28. -h/o AUD but none in 4mths. -Renal duplex results reviewed. -Cardiology consulted: -D/C'ed carvedilol to allow for more physiologic heart rate response. -D/C'ed chlorthalidone, -D/C'ed hydralazine, -started doxazosin 2mg BID. -Continue amlodipine but decrease dose as BP allow to prevent leg edema -If blood pressure elevation persists after volume unloading and above med adjustment - consider minoxidil, lose dose B ryan -Continue lisinopril -Diuresis as below should improve BP control - increase lasix since still fluid overloaded -Reassess dyspnea and vitals tomorrow w/ changes to medications. Moderate/large Rt Pleural effusion: Acute HFpEF -Echo with mild LVH and normal EF -Pulmonology consulted. -Thoracentesis performed 10/27 w/ improvement in breathing. -Increase lasix dose to 60mg IV qAM as above. -monitor I and Os Edema/Venous Stasis: -Continue diuresis as above. h/o Alcohol use ds -no alcohol use in 4mths. -no concern of underlying anxiety per discussion with patient Hypothyroidism: -Patient does not want to take levothyroxine because she said it gives her head aches and tastes bad. -TSH 9.689, encouraged to take levothyroxine but patient still does not want to take. Diabetes: -Lantus 7 u BID, ISS -Goal blood sugar 100 - 140 F/E/N - daily BMP, regular diet. Ppx - Lovenox for DVT ppx Code - Full code Dispo - Med/Surg (2) Edema: (3) Diabetes: (4) Hypothyroid: Admission and Anticipated Discharge Date Admission Date: October 21, 2021 Supervising Physician Co-Signing Physician Notes Resident Physician Supervision Note: I independently interviewed and examined the patient and verified the [place] history and physical, reviewed labs and image studies and agree with resident Dr. Garcia findings and care plan. Subjective Overnight pulse ox study showed 4 events of desaturations to the low to mid 80's. Patient said she feels the shortness of breath going to and from the bathroom but still breathing better than when she had the pleural effusion. Denies chest pain, increased edema in legs, fevers, chills. Review of Systems Review of Systems: as per subjective. Physical Exam Constitutional: WD/WN, vitals as above Eyes: PERRL, conjunctivae normal, anicteric sclerae Cardiovascular: Rate/Rhythm: regular rate and regular rhythm Heart Sounds: normal S1 and normal S2 Extremities: + edema Gastrointestinal (Abdomen): normal bowel sounds, soft, nontender, no hepatosplenomegaly Results & Data [facility] Vital Signs (Past 12 Hours) Vital Signs Temp Pulse Pulse Resp BP BP Pulse Ox 10/29/21 07:15 36.6 C 60 20 178/68 H 99 10/29/21 02:21 55 L 10/29/21 00:22 55 L 10/28/21 23:31 36.9 C 58 L 17 141/67 H 96 10/28/21 21:01 62 Pulse Ox 10/29/21 07:15 10/29/21 02:21 97 10/29/21 00:22 97 10/28/21 23:31 10/28/21 21:01 97 Resident Activity Tracking Resident Involvement: Resident Care Provided Care Provided: Adult Hospital Medicine
[2021-10-29] MEDS ORDERED: carvediloL 25 MG TAB PO SCH (09:00)
[2021-10-29] MEDS: INSULIN ASPART PER UNIT SC SCH ×4 (09:07→21:36)
[2021-10-29] MEDS: INSULIN GLARGINE SOLOSTAR 100 UNITS/ML 3 ML PEN SC SCH ×2 (09:08→21:24)
[2021-10-29] MEDS: amLODIPine BESYLATE 5 MG TAB PO SCH ×2 (09:10→21:18)
[2021-10-29] MEDS: ENOXAPARIN INJ 40 MG/0.4 ML SYR SQ SCH (09:11)
[2021-10-29] MEDS: FUROSEMIDE 40 MG TAB PO SCH (09:11)
[2021-10-29] MEDS: hydrALAZINE HCL 25 MG TAB PO SCH ×2 (09:11→13:11)
[2021-10-29] MEDS: CHLORTHALIDONE 25 MG TAB PO SCH (09:11)
--- NOTE | 2021-10-29 10:43 | XRay Report ---
XR chest 1V portable CLINICAL HISTORY: Dyspnea. COMPARISON STUDY: Chest CT July 10, 2021. Chest radiograph October 27, 2021. FINDINGS: Patient is rotated. There are small bilateral pleural effusions. Mild pulmonary edema persi sts. Cardiomediastinal silhouette is stable. IMPRESSION: No significant change in interstitial pulmonary edema with small bilateral pleural effus ions. ACT 112: Negative or not required by law. Electronically signed by: Byron Hannah M.D. 10/29/2021 10:42 AM
--- NOTE | 2021-10-29 14:19 | Cardiology Consultation ---
Date of Consultation October 29, 2021 Assessment & Plan (1) Acute heart failure with preserved ejection fraction (HFpEF): (2) Hypertension, uncontrolled: (3) Acute renal insufficiency: (4) Renal artery stenosis: (5) Diabetes: 61-year-old woman with refractory hypertension and new onset HFpEF which appears nonischemic. Currently, she remains mildly bradycardic and is momentarily normotensive, but she has been consistently hypertensive this hospitalization. Despite an impressive diuresis since admission, currently she appears moderately hypervolemic by neck veins and chest x-ray. As noted, her current vasoactive regimen includes: Lisinopril 20 mg daily Hydralazine 25 mg 3 times daily Furosemide 40 mg daily p.o. Chlorthalidone 25 mg daily Carvedilol 25 mg twice daily Amlodipine 5 mg twice daily Labetalol 10 mg IV as needed Recommend adjustments in her vasoactive medical regimen as follows: 1. Discontinue beta-ryan (carvedilol) to allow more physiologic heart rate response to activity/presence of heart failure (maximal heart rate this admission was 84 bpm, but recently her heart rate has been in the 50-60 bpm range) 2. Consolidate and intensify diuretic regimen, increase furosemide from 40 mg PO to 60 mg IV for continued diuresis (she lost no weight overnight and was previously on IV furosemide) and discontinue chlorthalidone and remain off spironolactone. She did have a transient creatinine bump several days ago which was likely due to aggressive volume unloading, however her creatinine quickly equilibrated and she is still hypervolemic. 3. Change from hydralazine 25 mg 3 times daily to doxazosin 2 mg twice daily, could later change to extended release doxazosin for ease of dosing. 4. If BP allows after above medication adjustments, would try to reduce amlodipine from 5 mg twice daily to 5 mg daily (to decrease likelihood of persistent leg edema). 5. If BP elevations persist after full volume unloading and above medication adjustments, would consider minoxidil along with diuretic and, if necessary, low-dose beta-ryan (if she develops reflex tachycardia). Will continue to follow along. I will not be here tomorrow, will ask Joelle Rasheed PA-C from heart failure clinic to check in. I will return on to check on the patient. History of Present Illness Reason for Consultation: Bradycardia Requesting Physician: Shara Villalba MD Attending Physician: Shara Villalba MD History of Present Illness 61-year-old woman with diabetes mellitus (on insulin), longstanding hypertension, and recent onset heart failure with preserved ejection fraction who was admitted 10/20/2021 with 20 pound weight gain and progressive leg edema as well as dyspnea on exertion. She denies chest pain at any time and her troponin and ECGs have been benign. Echocardiogram shows normal systolic function with no wall motion abnormalities. She has been consistently hypertensive with suboptimal response to varying vasoactive regimen. She has recently diagnosed moderate right renal artery stenosis, vascular practice management consultant felt that intervention would only be pursued if she has refractory hypertension on 5+ vasoactive agents. She has diuresed well with a 15 pound weight loss over the past 9 days. She notes marked improvement in her leg edema. She underwent thoracentesis by Pulmonary for transudative pleural effusion. She has chronic orthopnea which is unchanged and she did note mild paroxysmal dyspnea last evening. She denies any dyspnea at rest today. She has been consistently bradycardic with heart rate mostly in the 50s, occasionally dropping lower transiently. Her current vasoactive regimen includes: Lisinopril 20 mg daily Hydralazine 25 mg 3 times daily Furosemide 40 mg daily p.o. Chlorthalidone 25 mg daily Carvedilol 25 mg twice daily Amlodipine 5 mg twice daily Labetalol 10 mg IV as needed Of note, she ambulates with a walker due to diabetic neuropathy. She had no somatic complaints at the time of my evaluation earlier today. Allergies Allergy/AdvReac Type Severity Reaction Status Date / Time No Known Allergies Allergy Verified 10/20/21 19:28 Home Medications Medication Instructions Recorded Confirmed Type acetaminophen 650 mg 650 mg PO Q12H 10/20/21 10/20/21 History tablet,extended release (Tylenol Arthritis Pain) albuterol sulfate 2.5 mg INHALATION QID PRN 10/20/21 10/20/21 History furosemide 20 mg tablet (Lasix) 20 mg PO BID 10/20/21 10/20/21 History insulin NPH isoph U-100 human 100 16 unit SUBCUT HS 10/20/21 10/20/21 History unit/mL subcutaneous suspension (Novolin N NPH U-100 Insulin isophane) insulin NPH isoph U-100 human 100 18 unit SUBCUT QAM 10/20/21 10/20/21 History unit/mL subcutaneous suspension (Novolin N NPH U-100 Insulin isophane) levothyroxine 25 mcg tablet 25 mcg PO DAILY 10/20/21 10/20/21 History metoprolol tartrate 25 mg tablet 12.5 mg PO BID 10/20/21 10/20/21 History Patient History Medical History Acute head injury Acute hyponatremia Avulsed toenail Diabetes Diabetic neuropathy Hypertension Hypokalemia Hypomagnesemia Hypothyroid Renal artery stenosis Tinea pedis Surgical History History of amputation Family History Father Dementia in his 80s Mother , in her 70s Diabetes Social History Smoking Status: Former smoker Tobacco Type: Cigarettes Cigarettes Per Day: 20; Smoking End Date: 3 months ago; Second Hand Exposure: Yes; Do You Dip or Chew Tobacco: No; Tobacco Cessation Education Requested by Patient: No Hx Alcohol Use: Yes Alcohol type: hard liquor Alcohol Intake Frequency Comment: daily, at least 3 shots Hx Substance Use: No Preferred Language: Monegasque Communication Ability: Effective Product Test Specialist Required: No Beliefs That Will Affect Care: None marital status: Single Current Living Situation: Other Current Living Situation Comment: inmate current occupational status: disabled How many Children do You have: 1 How many Children do You have Comment: son Feels Safe at Home: Yes Assistive Devices: None Physical Exam Physical Exam: Adult female in no distress. BP currently normotensive but previously persistently hypertensive. Pulse 58 bpm and regular. Skin: no ecchymoses or generalized lesions. HEENT: unremarkable. Neck: Jugular venous pulse longterm to the angle of the jaw at 90 degrees, bilateral transmitted murmur radiating to the carotids. Lungs: Moderately decreased breath sounds but generally clear. No wheezing or obvious crackles. Cardiac: regular rhythm, 3/6 crescendo decrescendo systolic ejection murmur rating to the carotids, intact aortic closure sound, 2/6 apical holosystolic murmur rating to the axilla. No diastolic murmur. Abdomen: benign. Extremities: 1+ pretibial edema, pulses intact. Neurologic: normal affect and conversation, nonfocal. Results & Data ([facility]) Vital Signs (Past 12 Hours) Vital Signs Temp Pulse Pulse Resp BP Pulse Ox Pulse Ox 10/29/21 11:15 98.1 F 59 L 18 138/57 L 96 10/29/21 07:15 97.9 F 60 20 178/68 H 99 10/29/21 02:21 55 L 97 Laboratory Results Troponin negative. BNP elevated at 840. Hemoglobin 10.5. Normal electrolytes, BUN 38, creatinine 0.99 (creatinine high as 1.30 this admission). Diagnostic Findings Echocardiogram September 2021 showed EF 6065% with mild LVH, mild aortic stenosis/mitral regurgitation, no change compared with 2019 study. Serial ECG shows sinus rhythm and are unremarkable. Chest x-ray today shows small bilateral pleural effusions with mild pulmonary edema. PG Care Time/CCT Total # of Minutes Spent Total Time Spent with Patient: Total time spent is greater than 50% in coordination of care (as documented) at patient's floor/unit and/or counseling patient: Coding Level of Care Code 32716 Inpt Consult Level 4 Diagnoses Acute heart failure with preserved ejection fraction (HFpEF) I50.31 Renal artery stenosis I70.1 Hypertension, uncontrolled I10 Diabetes E11.9 Acute renal insufficiency N28.9
[2021-10-29] MEDS: DOXAZosin MESYLATE TAB 2 MG TAB PO SCH (21:18)
[2021-10-29] MEDS: lisinopril 20 MG TAB PO SCH (21:19)
[2021-10-29] MEDS: ACETAMINOPHEN 325 MG TAB PO PRN (21:37)
[2021-10-30] MEDS: LEVOTHYROXINE SODIUM 25 MCG TABLET PO SCH (06:16)
[2021-10-30 07:09] LABS: BUN Creatinine Ratio 31.6 (10-20); Calcium 8.7 mg/dl (8.5-10.1); Creatinine Clr Calc Pharmacy 44.5 ml/min; Est GFR (African American) 48.6 ml/min; Est GFR (Non-African American) 41.9 ml/min; Potassium 5.1 mmol/L (3.5-5.1)
--- NOTE | 2021-10-30 08:25 | Hospitalist Progress Note ---
Date of Service October 30, 2021 Assessment & Plan (1) Hypertensive urgency: Plan: Sumaya is a 61 year old female w/ PmHx DM w/ peripheral neuropathy, HTN, HLD admitted for hypertensive urgency. Hypertensive urgency: -Hypertensive on entry to hospital >200 systolic and >100 diastolic -BP spike from fluid overload, bradycardic compensatory response? -Nocturnal pulse ox showed 4 events of saturations to 80's, lowest HR 28. -h/o AUD but none in 4mths. -Renal duplex results reviewed. -Cardiology consulted: -D/C'ed carvedilol to allow for more physiologic heart rate response. -D/C'ed chlorthalidone, -D/C'ed hydralazine, -started doxazosin 2mg BID. -Continue amlodipine but decrease dose as BP allow to prevent leg edema -If blood pressure elevation persists after volume unloading and above med adjustment - consider minoxidil, low dose B rayn -Continue lisinopril -Diuresis as below should improve BP control - on Lasix 60mg IV qAM. -Reassess dyspnea and vitals tomorrow. -overall BP improving Moderate/large Rt Pleural effusion: Acute HFpEF -Echo with mild LVH and normal EF -Pulmonology consulted. -Thoracentesis performed 10/27 w/ improvement in breathing. -Increase lasix dose to 60mg IV qAM as above. -monitor I and Os. Unable to assess UO. Weight 2 lab lower. Edema/Venous Stasis: -Continue diuresis as above. h/o Alcohol use ds -no alcohol use in 4mths. -no concern of underlying anxiety per discussion with patient Hypothyroidism: -Patient does not want to take levothyroxine because she said it gives her headaches and tastes bad. -TSH 9.689, encouraged to take levothyroxine but patient still does not want to take. -Can try armour thyroid tomorrow to check tolerance. Diabetes: -Lantus 7 u BID, ISS -Goal blood sugar 100 - 140 F/E/N - daily BMP, regular diet. Ppx - Lovenox for DVT ppx Code - Full code Dispo - Med/Surg (2) Edema: (3) Diabetes: (4) Hypothyroid: Admission and Anticipated Discharge Date Admission Date: October 21, 2021 Supervising Physician Co-Signing Physician Notes Resident Physician Supervision Note: I independently interviewed and examined the patient and verified the [place] history and physical, reviewed labs and image studies and agree with resident Dr. Garcia findings and care plan. Subjective No overnight events. Patient feels like shortness of breath is getting better when going to and from the bathroom and has been urinating a lot. Denies fevers, chills, chest pain, dyspnea at rest. Review of Systems Review of Systems: As per subjective. Physical Exam Constitutional: WD/WN, vitals as above Eyes: PERRL, conjunctivae normal, anicteric sclerae Cardiovascular: Rate/Rhythm: regular rate and regular rhythm Heart Sounds: normal S1 and normal S2 Extremities: + edema Gastrointestinal (Abdomen): normal bowel sounds, soft, nontender, no hepatosplenomegaly Results & Data Results & Data ([facility]) Vital Signs (Past 12 Hours) Vital Signs Temp Pulse Resp BP Pulse Ox 10/30/21 07:11 36.6 C 51 L 16 138/60 96 10/29/21 22:32 37.1 C 53 L 18 171/68 H 99 Resident Activity Tracking Resident Involvement: Resident Care Provided Care Provided: Adult Hospital Medicine
[2021-10-30] MEDS ORDERED: FUROSEMIDE 20 MG TAB PO SCH (09:00)
[2021-10-30] MEDS: INSULIN ASPART PER UNIT SC SCH ×4 (09:14→21:45)
[2021-10-30] MEDS: INSULIN GLARGINE SOLOSTAR 100 UNITS/ML 3 ML PEN SC SCH ×2 (09:15→21:45)
[2021-10-30] MEDS: ENOXAPARIN INJ 40 MG/0.4 ML SYR SQ SCH (09:16)
[2021-10-30] MEDS: amLODIPine BESYLATE 5 MG TAB PO SCH ×2 (09:17→21:39)
[2021-10-30] MEDS: DOXAZosin MESYLATE TAB 2 MG TAB PO SCH ×2 (09:17→21:39)
--- NOTE | 2021-10-30 10:57 | Cardiology Progress Note ---
Date of Service October 30, 2021 Assessment & Plan (1) Acute heart failure with preserved ejection fraction (HFpEF): (2) Hypertension, uncontrolled: (3) Acute renal insufficiency: (4) Renal artery stenosis: (5) Diabetes: Plan: 61-year-old woman with refractory hypertension and new onset HFpEF which appears nonischemic. Currently, she remains mildly bradycardic and is momentarily normotensive, but she has been consistently hypertensive this hospitalization. HFpEF: Patient appears only slightly hypervolemic on exam today. Her symptoms are improving. s/p thoracentesis 11/23/21, transudative. Fluid balance is net positive, unclear if this is accurate. Unmeasured voids documented. Weight is trending down. 160 lb on standing scale today. This is below most of her previous weights. Suspect she is nearing euvolemia. BUN/Cr bump this am. Can continue Lasix 60 mg daily and continue to monitor. Consider 40 mg once daily on discharge. Daily standing weights. I&Os while hospitalized. Low sodium diet. Hypertension: BP seems improved this am. Several medication changes yesterday- Lisinopril 20 mg daily, Amlodipine 5 mg BID, Doxazosin 2 mg BID, as well as ongoing diuresis. Beta ryan discontinued. Hydralazine also discontinued. Heart rate remains in the 50s today. Continue the current doses and continue to monitor. If BP allows after above medication adjustments, would try to reduce amlodipine from 5 mg twice daily to 5 mg daily (to decrease likelihood of persistent leg edema). If BP elevations persist after full volume unloading and above medication adjustments, would consider minoxidil along with diuretic and, if necessary, low-dose beta-ryan (if she develops reflex tachycardia). Dispostion: Will continue to follow along during hospitalization. Dr. Williamson to return tomorrow. Admission and Anticipated Discharge Date Admission Date: October 21, 2021 Subjective Patient reports she's feeling well this am. Improved from yesterday. Her breathing is stable. She has minimal lower extremity edema. Physical Exam Physical Exam: Adult female in no distress. BP currently normotensive but previously persistently hypertensive. Pulse 51 bpm and regular. Skin: no ecchymoses or generalized lesions. HEENT: unremarkable. Neck: Jugular venous pulse fci to the angle of the jaw at 90 degrees, bilateral transmitted murmur radiating to the carotids. Lungs: Normal respiratory effort. Moderately decreased breath sounds but generally clear. No wheezing or obvious crackles. Cardiac: Regular rhythm, 3/6 crescendo decrescendo systolic ejection murmur rating to the carotids. Abdomen: benign. Extremities: Trace pretibial edema, pulses intact. Neurologic: normal affect and conversation, nonfocal. Results & Data ([facility]) Vital Signs (Past 12 Hours) Vital Signs Temp Pulse Resp BP Pulse Ox 10/30/21 07:11 97.9 F 51 L 16 138/60 96 PG Care Time/CCT Total # of Minutes Spent Total Time Spent with Patient: Total time spent is greater than 50% in coordination of care (as documented) at patient's floor/unit and/or counseling patient: Coding Level of Care Code 47651 Subseq Hosp Care Lvl 3 Diagnoses Acute heart failure with preserved ejection fraction (HFpEF) I50.31 Hypertension, uncontrolled I10 Acute renal insufficiency N28.9 Renal artery stenosis I70.1 Diabetes E11.9
[2021-10-30] MEDS: ACETAMINOPHEN 325 MG TAB PO PRN (21:44)
[2021-10-30] MEDS: lisinopril 20 MG TAB PO SCH (21:50)
[2021-10-31] MEDS ORDERED: ARMOUR THYROID 30 MG TAB PO SCH ×2 (06:30→09:00)
[2021-10-31] MEDS: amLODIPine BESYLATE 5 MG TAB PO SCH (09:18)
[2021-10-31] MEDS: DOXAZosin MESYLATE TAB 2 MG TAB PO SCH (09:18)
[2021-10-31] MEDS: ENOXAPARIN INJ 40 MG/0.4 ML SYR SQ SCH (09:19)
[2021-10-31] MEDS: INSULIN GLARGINE SOLOSTAR 100 UNITS/ML 3 ML PEN SC SCH (09:22)
[2021-10-31] MEDS: INSULIN ASPART PER UNIT SC SCH ×2 (09:25→12:52)
[2021-10-31 09:28] LABS: BUN Creatinine Ratio 33.1 (10-20); Creatinine Clr Calc Pharmacy 46.2 ml/min; Est GFR (African American) 51.3 ml/min; Est GFR (Non-African American) 44.2 ml/min; Potassium 5.3 mmol/L (3.5-5.1)
[2021-10-31] MEDS: ACETAMINOPHEN 325 MG TAB PO PRN (09:32)
[2021-10-31] MEDS ORDERED: FUROSEMIDE 40 MG/4 ML VIAL IV ONE (09:39)
--- NOTE | 2021-10-31 12:29 | Cardiology Progress Note ---
Date of Service October 31, 2021 Assessment & Plan (1) Hypertension, uncontrolled: (2) Acute heart failure with preserved ejection fraction (HFpEF): (3) Acute renal insufficiency: (4) Renal artery stenosis: (5) Diabetes: Plan: Patient doing well clinically. Remains borderline bradycardic but not on any negative chronotropic medications (carvedilol should have washed out by now). No specific intervention, but her bradycardia may be contributing to her refractory hypertension (baroreceptors attempt to maintain adequate mean arterial pressure by raising blood pressure in the face of bradycardia). Continue to monitor heart rate after discharge, if progressive could ultimately lead to pacemaker placement. Blood pressure improving overall, but given hyperkalemia would discontinue BETZAIDA inhibitor and increase doxazosin from 2 mg twice daily to 4 mg twice daily. If her BP were to rise again, could consider minoxidil, but at this point BP is reasonably controlled and there is room for adjustment of other medications (e.g., increasing doxazosin). She appears euvolemic and didn't have transient renal dysfunction on daily diuretic, but developed volume overload off diuretics. Therefore, would recommend furosemide 40 mg p.o. every other day to achieve routine diuresis without excess renal affect. Admission and Anticipated Discharge Date Admission Date: October 21, 2021 Subjective Uneventful night. Able to walk to the bathroom without dyspnea. No chest pain at any time. She denies orthostasis at any time. BP variable but improving, at times normotensive with no further episodes of severe hypertension. Remains borderline bradycardic. Physical Exam Physical Exam: No distress. BP currently only mildly hypertensive. Pulse 58 bpm and regular. Skin: no ecchymoses or generalized lesions. HEENT: unremarkable. Neck: Jugular venous pulse at clavicle at 90 degrees, bilateral transmitted murmur radiating to the carotids. Lungs: Moderately decreased breath sounds but generally clear. No wheezing or obvious crackles. Cardiac: regular rhythm, 3/6 crescendo decrescendo systolic ejection murmur rating to the carotids, intact aortic closure sound, 2/6 apical holosystolic murmur rating to the axilla. No diastolic murmur. Abdomen: benign. Extremities: trace pretibial edema, pulses intact. Neurologic: normal affect and conversation, nonfocal. Results & Data ([facility] [place]) Vital Signs (Past 12 Hours) Vital Signs Temp Pulse Resp BP Pulse Ox 04/07/22 08:08 97.3 F L 58 L 16 147/71 H 97 Laboratory Results Potassium 5.3, BUN 43, creatinine 1.3 (down from 1.36). PG Care Time/CCT Total # of Minutes Spent Total Time Spent with Patient: Total time spent is greater than 50% in coordination of care (as documented) at patient's floor/unit and/or counseling patient: Coding Level of Care Code 03258 Subseq Hosp Care Lvl 3 Diagnoses Acute heart failure with preserved ejection fraction (HFpEF) I50.31 Hypertension, uncontrolled I10 Acute renal insufficiency N28.9 Renal artery stenosis I70.1 Diabetes E11.9
[2021-10-31] MEDS ORDERED: DOXAZOSIN MESYLATE 1 MG TAB PO SCH ×2 (12:45→21:00)
--- NOTE | 2021-10-31 13:17 | Discharge Summary ---
Date of Service October 31, 2021 Admission HPI Per Admitting Provider Sumaya Marquez is a pleasant 61yo female with history of DM with peripheral neuropathy, HTN and HLP presenting from [facility] with poorly controlled hypertension, progressive edema and SOB. Patient notes progressive LE edema, L > R ongoing for the last 10 days as well as weight gain of approximately 20#. She has noted some SOB and GARCIA as well. She was going to the [facility] at the long-term and was receiving Lasix 20mg PO for the last week. She did not note any increase in urination with the Lasix. She reports her blood pressure being high at the [facility] but does not recall the numbers. Last evening she was given Clonidine 0.1mg tablet for her blood pressure. She denies chest or back pain pain, cough, abdominal pain, nausea, vomiting, diarrhea. Denies MCNEAL, visual changes. She does have some mild nausea and occasional palpitations. Otherwise no acute complaints. Upon arrival today patient hypertensive SBP 190-261 / DBP 53 - 106. She was given Labetalol 10mg IV with brief improvement. ER Course: Lasix 40mg IV, Labetalol 10mg IV, Nitroglycerine 1 inch, Tylenol 1gm, Clonidine 0.1mg Admission Exam Per Admitting Provider General: patient resting comfortably, NAD, non-toxic in appearance, AA&O x 4 Skin: warm, dry, intact, no rashes or lesions HEENT: NC/AT, PERRL, EOMI, anicteric sclera, conjunctiva without injection, external ear normal to inspection and nontender, nares patent, moist mucus membranes, dentition intact, no oropharyngeal lesions, neck supple, trachea midline, no LAD, no thyromegaly, no JVD, no papilledema on limited bedside fundoscopic exam Heart: +S1/S2, regular, 2/6 ZACHARY at left sternal border with radiation to carotids, no rubs/gallops, no JVD Lungs: equal air entry bilaterally, crackles in bilateral bases, no rhonchi/wheezes Abd: +BS, soft, NT/ND, no masses/organomegaly/ascites Ext: warm, 2+ pulses in UE/LE bilaterally, s/p TMA left foot, 3+ pitting edema of bilateral LE, L > R to thighs, abdominal wall Neuro: nonfocal, patient AA&O x 4, speech intact, no facial droop, moving all extremities on command with equal strength 5/5 Principal Diagnosis HTN urgency, fluid overload Discharge Exam Constitutional WD/WN, vitals as above Eyes PERRL, conjunctivae normal, anicteric sclerae Cardiovascular Rate/Rhythm: regular rate and regular rhythm Heart Sounds: normal S1 and normal S2 Extremities: + edema Gastrointestinal (Abdomen) normal bowel sounds, soft, nontender, no hepatosplenomegaly Discharge Data Allergies Allergy/AdvReac Type Severity Reaction Status Date / Time No Known Allergies Allergy Verified 10/20/21 19:28 Consultations 10/20/21 20:36 ED Decision to Admit Stat 10/21/21 22:12 Consult Vascular Surgery Routine 10/26/21 15:16 Consult Pulmonology Routine 10/29/21 12:28 Consult Cardiology Routine Ordered Studies 10/20/21 22:17 US duplex renal artery Urgent US venous doppler LE LT Routine IMPRESSION: 1. Evidence for renal artery stenosis involving the proximal to mid right renal artery as described above. 2. There is also mild renal artery stenosis proximally on the left as well. 3. Follow-up CTA of the renal arteries could be obtained for further evaluation. 10/22/21 07:52 CT angio abdomen wo/w con Routine IMPRESSION: 1. Large calcified atherosclerotic plaque at the origin of the right main renal artery with approximately 60-70% stenosis present at this site. 2. Atherosclerotic calcification throughout the abdominal aorta with no evidence for aneurysm. 3. Atherosclerotic plaque with stenosis at the origin of the iliac arteries bilaterally, right greater than left. 4. Moderately large right pleural effusion with right lower lobe atelectasis/collapse. 5. Small left pleural effusion with left lower lobe atelectasis/collapse. 6. Distended gallbladder with suspicion of pericholecystic edema. If indicated clinically, gallbladder ultrasound would be the study of choice for further evaluation. Hospital Course (1) Hypertensive urgency: Sumaya is a 61 year old female w/ PmHx DM w/ peripheral neuropathy, HTN, HLD admitted for hypertensive urgency. Hypertensive urgency: -Hypertensive on entry to hospital >200 systolic and >100 diastolic -BP spike from fluid overload, bradycardic compensatory response? -Nocturnal pulse ox showed 4 events of saturations to 80's, lowest HR 28. F/u outpatient for possible IVY contributing to HTN. -h/o AUD but none in 4mths. -Renal duplex results with moderate stenosis -Multiple agents used for BP control with no improvement. -Cardiology consulted: -started Doxazosin 2mg BID, increased to 4mg BID. Room for increase in dose if still hypertensive. -started on amlodipine 5mg BID. Can decrease to once per day if BP WNL. -If blood pressure elevation persists consider minoxidil, low dose B ryan -Lisinopril added but d/c'ed due to rising potassium up to 5.3 -overall BP improving Moderate/large Rt Pleural effusion: Acute HFpEF -Echo with mild LVH and normal EF -Pulmonology consulted. -Thoracentesis performed 10/27 w/ improvement in breathing. -Diuresed well with IV 60mgs lasix daily. -Euvolemic on discharge. -Improvement of shortness of breath after thoracentesis and diuresis. - On discharge -Lasix 40mg every other day as above. h/o Alcohol use ds -no alcohol use in 4mths. -no concern of underlying anxiety per discussion with patient Hypothyroidism: -Patient does not want to take levothyroxine because she said it gives her headaches and tastes bad. -TSH 9.689, encouraged to take levothyroxine but patient still does not want to take. -Tolerated Regina thyroid well while in hospital, can consider switching outpatient if patient still refuses to take levothyroxine and symptomatic. (2) Edema: (3) Diabetes: (4) Hypothyroid: Total Time Total Time Spent Total Time Spent (In Minutes): Please see attending attestation Discharge Plan Discharge Items [facility] Reason For Visit: HYPERTENSIVE URGENCY, EDEMA Discharge Diagnosis: Hypertensive urgency, venous stasis Activity: Per Instructions section Non-emergency contact: Primary Care Provider Call non-emergency contact if: your symptoms worsen, your pain is worsening and your temperature is above 101 Follow-up/Referrals: [facility] [Primary Care Provider] - Diet: Regular Addtl Attending Provider Instructions: A discharge summary will be sent to your primary care physician to ensure continuity of care. You came in to the hospital for elevated blood pressure readings and increased leg swelling and shortness of breath. Your blood pressure when you first came to the hospital was 252/106. We obtained an ultrasound of your heart to check for any changes or abnormalities that could be contributing to your symptoms. The ultrasound of the heart was normal with an ejection fraction of 60-65% and blood tests for injury to the muscles of the heart called troponin were also negative. You had good response to the use of diuretics, which caused you to urinate out a lot of your fluid. This in conjunction with taking fluid out from under your lung via a thoracentesis helped improve your shortness of breath. We also consulted cardiology who recommended changes and additions to your blood pressure medications as listed below in the medication section. Your blood pressures have been kept below 200 systolic and 100 diastolic before your discharge. With blood pressures under control with the new medications and your improving symptoms of shortness of breath we feel it is okay to discharge you at this time and follow up with your primary care doctor. During your stay imaging of your chest revealed fluid pushing against the bottom of your lungs. This fluid accumulation was probably due to the high blood pressures you were running prior to coming in. This was most likely the cause of your shortness of breath with walking. You were seen by the library technician in the hospital who determined it was okay to drain the fluid from your right lung. They were able to remove 1L of fluid from below your right lung. In order to keep the amount of fluid around your lungs down, good control of your blood pressure is necessary. We started you on a few new medications here to help control your blood pressure. These medications are listed below. We also did an over night pulse oximetry study which showed you had 4 times where your oxygen level dropped to the 80's. Please follow this up with your primary care doctor if they would like to do a sleep study for possible sleep apnea. Imaging of your kidneys showed a moderate amount of narrowing around the artery of your right kidney. Vascular surgery was consulted and did not think any surgical intervention was needed at this time. Please be sure your facility allows for you to take multiple walks a day to help decrease venous stasis that may be contributing to your leg edema. Follow-up: * You should be seen by your primary physician within the next week for follow up on this hospital stay, to make any changes necessary to your blood pressure regimen, and to check on your kidney function with blood work called basic metabolic panel. Medications: Your medication list has been reviewed and reconciled upon discharge to ensure accuracy and continuity of care. An updated list of all your medications is included with your hospital discharge paperwork. Please review this list closely, and make note of any changes. * Your Lasix dose has been switched to 40 mg taken once every other day. * We started you on a blood pressure medication called Amlodipine. You will take a 5mg dose of amlodipine two times a day. if your blood pressure continues to improve you can decrease to once a day. * We started you on a blood pressure medication called Doxazosin taken twice a day. You will get a 24hr supply of the 3mg per dose formulation. Once you go back to your facility please increase this dose to 4mg per dose. If blood pressures are still elevated there is room to increase this medication dose. * We stopped your Metoprolol at this time due to low heart rate. Please follow up with your primary care doctor on when to restart this medication. It was recommended if blood pressures persist without evidence for more fluid overload you may try minoxidil. Take your medications as instructed; do not skip a dose of your medicines. Make sure all of your doctors know every medicine you are taking (including azeo-dcd-mzhsual medicines, vitamins, and supplements). let your primary care provider know before taking any new medicines because some of these may interact with your current medications, or may make your symptoms worse. CONTACT YOUR PRIMARY CARE PROVIDER if you experience any of the following: * Fevers or shaking chills * Shortness of breath not relieved by inhalers, fainting * Sudden abdominal distension not relieved by catheterization. * Difficulty following your treatment plan, or difficulty taking medications CALL 911 OR GO TO THE EMERGENCY DEPARTMENT if you experience any of the following: * Sudden, severe abdominal pain or nausea/vomiting * Severe chest pain, or chest pain that radiates (moves) to your jaw or arm * Sudden, severe shortness of breath or difficulty breathing It was was our pleasure taking care of you here at [facility] . Thank you for allowing us to participate in your care. Pending Studies at Discharge: No Stand-Alone Forms: My [facility] Skilled Items Patient informed of condition?: Yes Discharge Level of Care: Other Communicable Disease: No Discharge Prognosis: Stable Lines: None Urinary Catheter: No Medications and DC Order Prescriptions: New doxazosin [Cardura] 1 mg Tablet 4 mg PO BID Qty: 60 RF: 0 amlodipine [Norvasc] 5 mg Tablet 5 mg PO BID Qty: 60 RF: 0 Continued albuterol sulfate 2.5 mg /3 mL (0.083 %) Solution For Nebulization 2.5 mg INHALATION QID PRN (Reason: Shortness Of Breath Or Wheezing) RF: 0 levothyroxine 25 mcg Tablet 25 mcg PO DAILY RF: 0 acetaminophen [Tylenol Arthritis Pain] 650 mg Tablet Extended Release 650 mg PO Q12H RF: 0 Novolin N NPH U-100 Insulin 100 unit/mL Suspension 18 unit SUBCUT QAM RF: 0 Novolin N NPH U-100 Insulin 100 unit/mL Suspension 16 unit SUBCUT HS RF: 0 Changed furosemide [Lasix] 20 mg Tablet 40 mg PO Q OTHER DAY Qty: 0 RF: 0 Discontinued metoprolol tartrate 25 mg Tablet 12.5 mg PO BID RF: 0 Discharge Orders: Discharge Order (Routine); Ordered 10/31/21 Ordered By: Matthew Quarles/Other Patient Handouts: Managing Type 2 Diabetes Admission Data Admit Date/Time: 10/21/21 18:44 Attending Provider: Shara Villalba Admit Provider: Ginger Roberto Primary Care Provider: Chelsea Nicole Other Providers: Ginger Roberto ; Mehul Arndt ; Ronen Robertson ; Champ Salmeron ; Aniket Williamson Other Interventions: Discharge Summary Assessment (RN) Last Done: 10/31/21 13:42 Supervising Physician Co-Signing Physician Notes Resident Physician Supervision Note: I independently interviewed and examined the patient and verified the [place] history and physical, reviewed labs and image studies and agree with resident Dr. Garcia findings and care plan. Resident Activity Tracking Resident Involvement: Resident Care Provided Care Provided: Adult Hospital Medicine
[2021-10-31] MEDS ORDERED: DOXAZosin MESYLATE 4 MG TAB PO SCH (21:00)
== END 2021-10-31 15:16 | DRG 291 ==
LOC: ED 18:08 → 2S 18:08 → SUATTDRO 21:06 → 2S 21:58 → SUATTDRO 10-21 18:44 → 3N 10-26 15:12 → 3W 10-31 01:11
DX: G47.33 Obstructive sleep apnea (adult) (pediatric); Z81.2 Family history of tobacco abuse and dependence; I70.1 Atherosclerosis of renal artery; Z91.19 Patient's noncompliance with other medical treatment and regimen; Z79.890 Hormone replacement therapy; Z72.89 Other problems related to lifestyle; J91.8 Pleural effusion in other conditions classified elsewhere; Z87.891 Personal history of nicotine dependence; I50.31 Acute diastolic (congestive) heart failure; I16.0 Hypertensive urgency; R00.1 Bradycardia, unspecified; E11.40 Type 2 diabetes mellitus with diabetic neuropathy, unspecified; Z79.4 Long term (current) use of insulin; J44.9 Chronic obstructive pulmonary disease, unspecified; E03.9 Hypothyroidism, unspecified; I11.0 Hypertensive heart disease with heart failure; N28.9 Disorder of kidney and ureter, unspecified; I87.8 Other specified disorders of veins

== ENCOUNTER 2021-11-05 10:59 | Inpatient (IN) ==
[2021-11-05 11:35] LABS: Basophils # (auto) 0.01 K/uL (0-0.2); Basophils % (auto) 0.1 %; Eosinophils # (auto) 0.21 K/uL (0-0.5); Hematocrit (blood only) 34.7 % (37-47); Hemoglobin 11.4 g/dL (12.0-16.0); Immature Granulocytes # (auto) 0.02 K/uL (0.00-0.02); Immature Granulocytes % (auto) 0.3 %; Lymphocytes # (auto) 2.19 K/uL (1.2-3.4); Lymphocytes % (auto) 31.4 %; Mean Corpuscular Hemoglobin 30.7 pg (25-34); Mean Corpuscular Hgb Conc 32.9 g/dL (32-36); Mean Corpuscular Volume 93.5 fL (80-100); Mean Platelet Volume 10.5 fL (7.4-10.4); Monocytes # (auto) 0.78 K/uL (0.11-0.59); Monocytes % (auto) 11.2 %; Neutrophils # (auto) 3.77 K/uL (1.4-6.5); Platelet Count 332 K/uL (130-400); RDW Coefficient of Variation 12.7 % (11.5-14.5); RDW Standard Deviation 43.5 fL (36.4-46.3); Red Blood Count 3.71 M/uL (4.2-5.4); White Blood Count 6.98 K/uL (4.8-10.8)
[2021-11-05] MEDS ORDERED: STAT IV STA (11:41)
[2021-11-05] MEDS ORDERED: DEXTROSE 50% 50 ML SYRINGE IV STA (11:41)
[2021-11-05] MEDS ORDERED: DEXTROSE 5% IV STA (11:41)
[2021-11-05] MEDS ORDERED: INSULIN HUMAN REGULAR PER UNIT 10 UNITS in SYRINGE 9.9 ML IV STA (11:41)
[2021-11-05] MEDS ORDERED: CALCIUM GLUCONATE IV STA (11:41)
--- NOTE | 2021-11-05 11:43 | XRay Report ---
XR chest 1V portable HISTORY: 61 years-old Female Chest Pain acute atypical chest pain COMPARISON: Chest radiograph 10/29/2021 TECHNIQUE: Portable AP view of the chest FINDINGS: The cardiac silhouette is enlarged. Pulmonary vascular congestion with improved pulmonary edema. No p neumothorax. Probable trace pleural effusions. Mild bibasilar opacities suggest atelectasis. Bones ap pear grossly intact. IMPRESSION: 1. Cardiomegaly with improved pulmonary edema. 2. Trace pleural effusions with mild bibasilar atelectasis. ACT 112: Negative or not required by law. The above report was generated using voice recognition software. It may contain grammatical, syntax o r spelling errors. Electronically signed by: Olman Rodriguez M.D. 11/05/2021 11:42 AM
[2021-11-05 11:45] LABS: INR 1.1 (0.9-1.1); Prothrombin Time 11.3 Seconds (9.0-12.0)
[2021-11-05 11:50] LABS: iSTAT Hemoglobin 11.6 g/dl (12.0-16.0); iSTAT Ionized Calcium 1.25 mmol/l (1.12-1.32); iSTAT Potassium 6.6 mmol/L (3.3-5.0)
[2021-11-05] MEDS ORDERED: NovoLIN-R INSULIN PER UNIT CHARGE ONE (11:50)
[2021-11-05 12:02] LABS: Albumin Level 3.4 gm/dl (3.4-5.0); BUN Creatinine Ratio 31.8 (10-20); Bilirubin,Total 0.2 mg/dl (0.2-1.0); Calcium 9.3 mg/dl (8.5-10.1); Creatinine Clr Calc Pharmacy 54.7 ml/min; Est GFR (African American) 62.8 ml/min; Est GFR (Non-African American) 54.1 ml/min; Globulin 3.4 gm/dl (2.5-4.0); Phosphorus 5.7 mg/dl (2.5-4.9); Total Protein 6.8 gm/dl (6.0-8.3)
[2021-11-05] MEDS ORDERED: PATIROMER CALCIUM SORBITEX 8.4 GM PACK PO STA (12:46)
[2021-11-05 12:49] LABS: Potassium 6.5 mmol/L (3.5-5.1)
[2021-11-05] MEDS ORDERED: ONDANSETRON INJ 2 MG/ML 2 ML VIAL IV STA (12:52)
[2021-11-05] MEDS ORDERED: SODIUM BICARB 8.4% INJ 50 MEQ/50 ML SYR IV STA (13:02)
--- NOTE | 2021-11-05 13:04 | History & Physical Report ---
Date of Service November 05, 2021 Assessment & Plan (1) Junctional bradycardia: Plan: 2nd to #2 below. As noted in the HPI, after slow push of sodium bicarbonate 50meq ampule, she converted from her junctional rhythm back to NSR. She will need ongoing treatment of her high potassium, telemetry monitoring, and probable cardiology consultation. During her recent stay she had had bradycardia and there was some mention of junctional rhythm seen on telemetry as well. There was brief discussion about the possibility of pacemaker placement. Her beta ryan was stopped during that admission. She is not on AV richardson agents at this time. See discussion below regarding hypothyroidism. (2) Hyperkalemia: Plan: etiology uncertain. During the previous visit her K level was top-normal. She is not on BETZAIDA or ARB therapy, potassium supplementation or any other medication that would cause high K levels. Renal function is intact. differential - amador's disease vs RTA vs rhabdomyolysis vs other. check cortisol. check ABG. check CPK. consider nephrology consultation. s/p insulin/D50, calcium IV, bicarbonate therapy, patiromer. serial BMPs q4h. defer additional Rx to ICU team. (3) COPD (chronic obstructive pulmonary disease): Plan: no exacerbation at this time cont outpatient inhalers (4) Diastolic heart failure: Plan: remains compensated at this time defer resumption of diuretic to ICU attending (5) Hypertension, uncontrolled: Plan: during the previous visit she had HTN emergency multiple med adjustments were made including stoppage of her lisinopril renal artery stenosis was discovered on CTA - she has such on the right with stenosis of >50% cont amlodipine, doxazosin may need additional agents (6) Renal artery stenosis: Plan: see above (7) Diabetes: Plan: glycemic control per ICU protocol (8) History of tobacco use: (9) Chronic alcohol use: (10) DVT prophylaxis: Plan: heparin 5000 TID (11) Hypothyroid: Plan: TSH continues to remain high; today it is 19 there is mention in the previous d/c summary that she had not been compliant with her levothyroxine due to side effects the levothyroxine was restarted at 25mcg daily for a level of 19 typically I would start an adult on 50mcg/day thus will increase her levothyroxine to that dose recheck TSH in 6 weeks as outpatient Plan: plan of care d/w Dr Downey from ICU to be admitted to ICU due to high K & junctional bradycardia History of Present Illness Chief Complaint: "I wasn't feeling well" Primary Care Provider: [facility] 61yo female - recent hospital stay for acute/chronic HFpEF and HTN emergency - presents from [facility] with simply feeling unwell starting this am. Since being released from [facility] last week (discharge: 10/31/21) she has felt in her usual state of health with no dyspnea, chest pain, or worsening LE edema. She saw the longterm doctor yesterday and was told that everything was stable. This am she awoke feeling ok. Took her usual medications and ate a good breakfast. Then took a brief nap. Upon awakening she knew "something wasn't right." She could tell her pulse was low. She had a slight headache but no diaphoresis, nausea, emesis, abd pain, chest pain or dizziness/lightheadedness. Upon arrival to [facility] she was in a junctional rhythm with HR about 40 and K was 6.5. Given insulin/D50 and calcium. During my assessment I ordered amp of sodium bicarbonate. Following slow push of such by nursing her HR improved from the 50s (junctional) to high 90s (NSR). Allergies Allergy/AdvReac Type Severity Reaction Status Date / Time No Known Allergies Allergy Verified 11/05/21 13:18 Home Medications Medication Instructions Recorded Confirmed Type acetaminophen 650 mg 650 mg PO TID PRN 10/20/21 11/05/21 History tablet,extended release (Tylenol Arthritis Pain) albuterol sulfate 2.5 mg INHALATION QID PRN 10/20/21 11/05/21 History insulin NPH isoph U-100 human 100 16 unit SUBCUT HS 10/20/21 11/05/21 History unit/mL subcutaneous suspension (Novolin N NPH U-100 Insulin isophane) insulin NPH isoph U-100 human 100 18 unit SUBCUT QAM 10/20/21 11/05/21 History unit/mL subcutaneous suspension (Novolin N NPH U-100 Insulin isophane) levothyroxine 25 mcg tablet 25 mcg PO DAILY 10/20/21 11/05/21 History amlodipine 5 mg tablet (Norvasc) 5 mg PO BID #60 tab 10/31/21 11/05/21 Rx furosemide 20 mg tablet (Lasix) 40 mg PO Q OTHER DAY #0 tab 10/31/21 11/05/21 Rx doxazosin 1 mg tablet 3 mg PO BID 11/05/21 11/05/21 History lanolin alcohols-mineral 1 applic TOPICAL BID 11/05/21 11/05/21 History oil-w.petrolatum-ceresin topical cream (Eucerin) Past Med/Surg History Medical History Acute head injury Acute hyponatremia Avulsed toenail Chronic alcohol use COPD (chronic obstructive pulmonary disease) Diabetes Diabetic neuropathy Diastolic heart failure History of tobacco use Hypertension Hypokalemia Hypomagnesemia Hypothyroid Pulmonary nodules/lesions, multiple Renal artery stenosis Tinea pedis Surgical History History of amputation Left foot TMA Family History Father Dementia in his 80s Mother , in her 70s Diabetes CHF (congestive heart failure) Social History Smoking Status: Former smoker Tobacco Type: Cigarettes Age Started Using Tobacco: 16; packs per day: 0.5; Smoking End Date: early 2021; Second Hand Exposure: Yes; Do You Dip or Chew Tobacco: No; Hx Alcohol Use: Yes Alcohol type: hard liquor Alcohol Intake Frequency Comment: daily, at least 3 shots Hx Substance Use: No Preferred Language: Citizen Of [place] Communication Ability: Effective Insurance Examiner Required: No Beliefs That Will Affect Care: None marital status: Single Current Living Situation: Other Current Living Situation Comment: sher current occupational status: disabled How many Children do You have: 1 How many Children do You have Comment: son Feels Safe at Home: Yes Assistive Devices: Cane, Denture - Upper, Denture - Lower, Glasses, Walker and Wheelchair Review of Systems Review of Systems: gen - no change in weight; no fevers/chills/loss of appetite eyes - no change in vision since hospital d/c HENT - no dysphagia, no sore throat CV - no chest pain but heart felt "funny" with low heart rate pulm - no cough, no dyspnea, no GARCIA GI - no pain/N/V/D/blood in stool - no dysuria musculo - denies pain any location neuro - slight headache this am; paresthesias of feet - chronic endo - BSGs <200 since hospital discharge skin - no rashes Physical Exam Physical Exam: gen - NAD, a/o x 3 eyes - PERRL HENT - mouth with MMM, no lesions neck - supple, no lymphadenopathy, no thyroidmegaly heart - bradycardic, s1 s2, no murmur; no JVD lungs - CTA b/l abd - soft NT ND BS+ ext - no edema, pulses 2+ b/l neuro - strength 5/5 x 4 exts; DTRs 2+ b/l skin - no rash psych - a/o x 3 musculo - no joint deformities except left foot TMA lymph - no cervical lymph nodes b/l Results & Data Results & Data ([facility]) Vital Signs (Past 12 Hours) Vital Signs Temp Pulse Resp BP Pulse Ox 11/05/21 12:15 43 L 20 97 11/05/21 12:00 45 L 25 H 139/56 L 100 11/05/21 11:45 46 L 19 100 11/05/21 11:30 46 L 24 11/05/21 11:15 36.8 C 49 L 22 149/56 H 100 11/05/21 11:14 57 L 20 100 Laboratory Results Abnormal lab results 11/05/21 11/05/21 11/05/21 Range/Units 11:20 11:20 11:20 RBC 3.71 L (4.2-5.4) M/uL Hgb 11.4 L (12.0-16.0) g/dL POC Hgb (12.0-16.0) g/dl Hct 34.7 L (37-47) % POC Hct (37-47) % MPV 10.5 H (7.4-10.4) fL [place] # (Auto) 0.78 H (0.11-0.59) K/uL ABG HCO3 (19-24) mmol/L ABG O2 Saturation (90-95) % Sodium 135 L (136-145) mmol/L POC Potassium (3.3-5.0) mmol/L Potassium 6.5 H* (3.5-5.1) mmol/L POC Total CO2 (24-31) mmol/L Anion Gap (3-11) POC Anion Gap (16-25) mmol/L POC BUN (7-18) mg/dl BUN 35 H (6-23) mg/dl Creatinine (0.6-1.2) mg/dl BUN/Creatinine Ratio 31.8 H (10-20) Glucose 156 H (70-99(Fasting)) mg/dl POC Glucose (70-99) mg/dl POC Glucose (other) (70-99) mg/dl Phosphorus 5.7 H (2.5-4.9) mg/dl Troponin I High Sens 26.3 H (0-14) pg/ml B-Natriuretic Peptide (0-100) pg/ml Lipase 5 L (11-82) U/L TSH (0.300-4.500) uIu/ml Urine pH (4.5-7.5) Urine Protein (Negative) Urine Blood (Negative) Ur Leukocyte Esterase (Negative) Urine WBC (Auto) (0-5) /hpf U Epithel Cells (Auto) (0-5) /lpf Urine Osmolality (500-800) mOsm/kg 11/05/21 11/05/21 11/05/21 Range/Units 11:20 11:28 11:30 RBC (4.2-5.4) M/uL Hgb (12.0-16.0) g/dL POC Hgb 11.6 L (12.0-16.0) g/dl Hct (37-47) % POC Hct 34 L (37-47) % MPV (7.4-10.4) fL [place] # (Auto) (0.11-0.59) K/uL ABG HCO3 (19-24) mmol/L ABG O2 Saturation (90-95) % Sodium (136-145) mmol/L POC Potassium 6.6 H* (3.3-5.0) mmol/L Potassium (3.5-5.1) mmol/L POC Total CO2 23 L (24-31) mmol/L Anion Gap (3-11) POC Anion Gap 13.0 L (16-25) mmol/L POC BUN 39 H (7-18) mg/dl BUN (6-23) mg/dl Creatinine (0.6-1.2) mg/dl BUN/Creatinine Ratio (10-20) Glucose (70-99(Fasting)) mg/dl POC Glucose (70-99) mg/dl POC Glucose (other) 159 H (70-99) mg/dl Phosphorus (2.5-4.9) mg/dl Troponin I High Sens (0-14) pg/ml B-Natriuretic Peptide 423 H (0-100) pg/ml Lipase (11-82) U/L TSH 19.281 H (0.300-4.500) uIu/ml Urine pH (4.5-7.5) Urine Protein (Negative) Urine Blood (Negative) Ur Leukocyte Esterase (Negative) Urine WBC (Auto) (0-5) /hpf U Epithel Cells (Auto) (0-5) /lpf Urine Osmolality (500-800) mOsm/kg 11/05/21 11/05/21 11/05/21 Range/Units 12:55 14:27 14:27 RBC (4.2-5.4) M/uL Hgb (12.0-16.0) g/dL POC Hgb (12.0-16.0) g/dl Hct (37-47) % POC Hct (37-47) % MPV (7.4-10.4) fL [place] # (Auto) (0.11-0.59) K/uL ABG HCO3 25 H (19-24) mmol/L ABG O2 Saturation 96.7 H (90-95) % Sodium (136-145) mmol/L POC Potassium (3.3-5.0) mmol/L Potassium 5.8 H (3.5-5.1) mmol/L POC Total CO2 (24-31) mmol/L Anion Gap (3-11) POC Anion Gap (16-25) mmol/L POC BUN (7-18) mg/dl BUN 34 H (6-23) mg/dl Creatinine (0.6-1.2) mg/dl BUN/Creatinine Ratio 33.0 H (10-20) Glucose (70-99(Fasting)) mg/dl POC Glucose 250 H (70-99) mg/dl POC Glucose (other) (70-99) mg/dl Phosphorus (2.5-4.9) mg/dl Troponin I High Sens (0-14) pg/ml B-Natriuretic Peptide (0-100) pg/ml Lipase (11-82) U/L TSH (0.300-4.500) uIu/ml Urine pH (4.5-7.5) Urine Protein (Negative) Urine Blood (Negative) Ur Leukocyte Esterase (Negative) Urine WBC (Auto) (0-5) /hpf U Epithel Cells (Auto) (0-5) /lpf Urine Osmolality (500-800) mOsm/kg 11/05/21 11/05/21 11/05/21 Range/Units 14:27 15:45 15:45 RBC (4.2-5.4) M/uL Hgb (12.0-16.0) g/dL POC Hgb (12.0-16.0) g/dl Hct (37-47) % POC Hct (37-47) % MPV (7.4-10.4) fL [place] # (Auto) (0.11-0.59) K/uL ABG HCO3 (19-24) mmol/L ABG O2 Saturation (90-95) % Sodium (136-145) mmol/L POC Potassium (3.3-5.0) mmol/L Potassium (3.5-5.1) mmol/L POC Total CO2 (24-31) mmol/L Anion Gap (3-11) POC Anion Gap (16-25) mmol/L POC BUN (7-18) mg/dl BUN (6-23) mg/dl Creatinine (0.6-1.2) mg/dl BUN/Creatinine Ratio (10-20) Glucose (70-99(Fasting)) mg/dl POC Glucose (70-99) mg/dl POC Glucose (other) (70-99) mg/dl Phosphorus (2.5-4.9) mg/dl Troponin I High Sens 24.4 H (0-14) pg/ml B-Natriuretic Peptide (0-100) pg/ml Lipase (11-82) U/L TSH (0.300-4.500) uIu/ml Urine pH 8.0 H (4.5-7.5) Urine Protein 3+ H (Negative) Urine Blood 1+ H (Negative) Ur Leukocyte Esterase Trace H (Negative) Urine WBC (Auto) 5-10 H (0-5) /hpf U Epithel Cells (Auto) >30 H (0-5) /lpf Urine Osmolality 368 L (500-800) mOsm/kg 11/05/21 11/05/21 11/06/21 Range/Units 23:25 23:38 01:47 RBC (4.2-5.4) M/uL Hgb (12.0-16.0) g/dL POC Hgb (12.0-16.0) g/dl Hct (37-47) % POC Hct (37-47) % MPV (7.4-10.4) fL [place] # (Auto) (0.11-0.59) K/uL ABG HCO3 (19-24) mmol/L ABG O2 Saturation (90-95) % Sodium 135 L 134 L (136-145) mmol/L POC Potassium (3.3-5.0) mmol/L Potassium 6.2 H* 5.7 H (3.5-5.1) mmol/L POC Total CO2 (24-31) mmol/L Anion Gap 2 L (3-11) POC Anion Gap (16-25) mmol/L POC BUN (7-18) mg/dl BUN 34 H 34 H (6-23) mg/dl Creatinine 1.30 H 1.21 H (0.6-1.2) mg/dl BUN/Creatinine Ratio 26.2 H 28.1 H (10-20) Glucose 234 H 192 H (70-99(Fasting)) mg/dl POC Glucose 215 H (70-99) mg/dl POC Glucose (other) (70-99) mg/dl Phosphorus (2.5-4.9) mg/dl Troponin I High Sens 23.9 H (0-14) pg/ml B-Natriuretic Peptide (0-100) pg/ml Lipase (11-82) U/L TSH (0.300-4.500) uIu/ml Urine pH (4.5-7.5) Urine Protein (Negative) Urine Blood (Negative) Ur Leukocyte Esterase (Negative) Urine WBC (Auto) (0-5) /hpf U Epithel Cells (Auto) (0-5) /lpf Urine Osmolality (500-800) mOsm/kg 11/06/21 11/06/21 Range/Units 04:12 05:03 RBC (4.2-5.4) M/uL Hgb (12.0-16.0) g/dL POC Hgb (12.0-16.0) g/dl Hct (37-47) % POC Hct (37-47) % MPV (7.4-10.4) fL [place] # (Auto) (0.11-0.59) K/uL ABG HCO3 (19-24) mmol/L ABG O2 Saturation (90-95) % Sodium (136-145) mmol/L POC Potassium (3.3-5.0) mmol/L Potassium 5.3 H (3.5-5.1) mmol/L POC Total CO2 (24-31) mmol/L Anion Gap (3-11) POC Anion Gap (16-25) mmol/L POC BUN (7-18) mg/dl BUN 32 H (6-23) mg/dl Creatinine (0.6-1.2) mg/dl BUN/Creatinine Ratio 27.1 H (10-20) Glucose 138 H (70-99(Fasting)) mg/dl POC Glucose 173 H (70-99) mg/dl POC Glucose (other) (70-99) mg/dl Phosphorus (2.5-4.9) mg/dl Troponin I High Sens (0-14) pg/ml B-Natriuretic Peptide (0-100) pg/ml Lipase (11-82) U/L TSH (0.300-4.500) uIu/ml Urine pH (4.5-7.5) Urine Protein (Negative) Urine Blood (Negative) Ur Leukocyte Esterase (Negative) Urine WBC (Auto) (0-5) /hpf U Epithel Cells (Auto) (0-5) /lpf Urine Osmolality (500-800) mOsm/kg Diagnostic Findings Chest X-Ray 11/05/21 11:14 XR chest 1V portable HISTORY: 61 years-old Female Chest Pain acute atypical chest pain COMPARISON: Chest radiograph 10/29/2021 TECHNIQUE: Portable AP view of the chest FINDINGS: The cardiac silhouette is enlarged. Pulmonary vascular congestion with improved pulmonary edema. No pneumothorax. Probable trace pleural effusions. Mild bibasilar opacities suggest atelectasis. Bones appear grossly intact. IMPRESSION: 1. Cardiomegaly with improved pulmonary edema. 2. Trace pleural effusions with mild bibasilar atelectasis. ACT 112: Negative or not required by law. The above report was generated using voice recognition software. It may contain grammatical, syntax or spelling errors. Electronically signed by: Olman Rodriguez M.D. 11/05/2021 11:42 AM EKG at presentation - junctional bradycardia Code Status & VTE Plan Code Status full PG Care Time/CCT Total # of Minutes Spent Total Time Spent with Patient: Total time spent is greater than 50% in coordination of care (as documented) at patient's floor/unit and/or counseling patient: Coding Level of Care Code 86139 Initial Inpt Care Lvl 3 Diagnoses Junctional bradycardia R00.1 Hyperkalemia E87.5 COPD (chronic obstructive pulmonary disease) J44.9 COPD type: unspecified COPD Diastolic heart failure I50.30 Hypertension, uncontrolled I10 Renal artery stenosis I70.1 Diabetes E11.9 History of tobacco use Z87.891 Chronic alcohol use Z72.89 DVT prophylaxis Z29.9 Hypothyroid E03.9 (1) COPD (chronic obstructive pulmonary disease) COPD type: unspecified COPD Qualified Code(s): J44.9 - Chronic obstructive pulmonary disease, unspecified
[2021-11-05 14:23] LABS: Thyroid Stimulating Hormone 19.281 uIu/ml (0.300-4.500)
[2021-11-05 14:41] LABS: Base Excess ABG 0.2 mEq/L (-9-1.8); HCO3 ABG 25 mmol/L (19-24); Oxygen Saturation ABG 96.7 % (90-95); PCO2 ABG 39 mmHg (35-46); PO2 ABG 86 mmHg (80-95); pH ABG 7.42 (7.35-7.45)
[2021-11-05 14:42] LABS: Allen Test Pos (Pos)
--- NOTE | 2021-11-05 14:51 | Emergency Department Note ---
Impression & Plan Acute hyperkalemia, Symptomatic bradycardia, Elevated troponin ED Provider Note NAME: HERB [id number] EVELIA AGE: 61 SEX: F ARRIVES VIA: Ambulance INFORMANT: Patient ED PROVIDER(S): Mio Carbajal MD CHIEF COMPLAINT: palpitations, bradycardia PLAN: Disposition: admit MEDICAL DECISION MAKING: The patient is a pleasant 61-year-old woman, current residential inmate at [facility] who presents to the emergency department for evaluation of low heart rate in the 40s with symptoms of palpitation. The patient presents in the setting of being discharged on 10/31 after being admitted for hypervolemia/diastolic heart failure where she was treated with thoracentesis for large pleural effusion and IV diuresis. Patient denies any cough or congestion. She denies chest pain but describes that she does "not feel right in her chest". She denies nausea or vomiting or diarrhea. She denies any urinary symptoms. On arrival the patient is uncomfortable but no acute distress, afebrile with heart rate in the 40s and blood pressure stable. She appears euvolemic with mild residual bilateral lower extremity edema. Initial EKG demonstrates junctional bradycardia at 56 with PVCs. An i-STAT chemistry was performed and demonstrated suspected hyperkalemia with a potassium of 6.5. Her renal function however was not impaired. Given the patient's EKG changes in the setting of hyperkalemia she was treated with IV regular insulin, 3 g of calcium gluconate, and was also ordered for [place]. Her rate did show some improvement subsequently in the 50-60s and appeared in sinus rhythm. Chest x-ray demonstrates improved pulmonary edema and trace bilateral pleural effusions. WBC and platelets within normal limits. H/H similar to prior range of values. Chemistry without metabolic acidosis. Her hyperkalemia was confirmed on lab chemistry with a potassium of 6.5. Creatinine was 1.1. BUN 35. High- sensitivity troponin was 26, nonspecific. BNP was 400 improved from recent. Findings were reviewed with the patient and she did agree with plan for admission. Case was d/w Dr. Shabazz, [facility] hospitalist who will evaluate the patient for admission. Triage Nursing notes reviewed and agree them. Prior medical records reviewed Vital Signs: reviewed and remarkable for bradycardia. Differential diagnosis: Premature contractions, electrolyte abnormality, cardiac dysrhythmia, thyroid dysfunction, pulmonary embolism, infection, gastrointestinal, as well as other pathologies. ER treatment provided: See below. Diagnostics interpreted by me: ECG 1108: Junctional bradycardia, 56 bpm, ventricular escape complexes. No overt ST elevation or depression, QTC 430, QRS 78. ECG 1325: Normal sinus rhythm, 96 bpm, no ectopy, no overt ST elevation or depression, QTC 439, QRS 84. Cardiac Monitoring: An order for continuous cardiac monitoring was placed and demonstrated junctional bradycardia, 56 bpm, ventricular escape complexes. Laboratory studies: See below Imaging studies: See below Consultation(s): Case was d/w Dr. Shabazz, [facility] hospitalist who will evaluate the patient for admission. HPI: The patient is a pleasant 61-year-old woman, current residential inmate at [facility] who presents to the emergency department for evaluation of low heart rate in the 40s with symptoms of palpitation. The patient presents in the setting of being discharged on 10/31 after being admitted for hypervolemia/diastolic heart failure where she was treated with thoracentesis for large pleural effusion and IV diuresis. Patient denies any cough or congestion. She denies chest pain but describes that she does "not feel right in her chest". She denies nausea or vomiting or diarrhea. She denies any urinary symptoms. ROS: See above HPI for pertinent positives & negatives. A total of 10 systems reviewed and were otherwise negative. VITALS:See Below PHYSICAL EXAMINATION: GENERAL: Awake, alert, fatigued-appearing, in no distress HENT: Normocephalic, atraumatic. Oropharynx with dry mucous membranes and otherwise unremarkable. EYES: Normal conjunctiva. Sclera non-icteric. NECK: Supple. No nuchal rigidity. FROM. No JVD. RESPIRATORY: Clear to auscultation. CARDIAC: Bradycardic rate, normal rhythm. Extremities warm and well perfused. Pulses equal. ABDOMEN: Soft, non-distended. No tenderness to palpation. No rebound or guarding. No masses. RECTAL: Deferred. MUSCULOSKELETAL: Chest examination reveals no tenderness. The back is symmetrical on inspection without obvious abnormality. There is no CVA tenderness to palpation. No joint edema. LOWER EXTREMITIES: Calves are equal size bilaterally and non-tender. Mild BLE edema. No discoloration. NEURO: Normal sensorium. No sensory or motor deficits noted. SKIN: No rash or jaundice noted. ED COURSE: Critical Care: I have personally spent greater than 55 minutes of critical care time in the direct management of this patient. This includes bedside care, interpretation of diagnostic studies, and testing, discussion with consultants, patient, and family members, and other required patient management activities. This 55 minutes is in excess of all separately billable procedures. Mio Carbajal MD Past Med/Surg History Medical History Acute head injury Acute hyponatremia Avulsed toenail Chronic alcohol use COPD (chronic obstructive pulmonary disease) Diabetes Diabetic neuropathy Diastolic heart failure History of tobacco use Hypertension Hypokalemia Hypomagnesemia Hypothyroid Pulmonary nodules/lesions, multiple Renal artery stenosis Tinea pedis Surgical History History of amputation Left foot TMA Family History Father Dementia in his 80s Mother , in her 70s Diabetes CHF (congestive heart failure) Social History (Updated 11/05/21 @ 13:40 by David Shabazz) Smoking Status: Former smoker Tobacco Type: Cigarettes Age Started Using Tobacco: 16; packs per day: 0.5; Smoking End Date: early 2021; Second Hand Exposure: Yes; Do You Dip or Chew Tobacco: No; Hx Alcohol Use: Yes Alcohol type: hard liquor Alcohol Intake Frequency Comment: daily, at least 3 shots Hx Substance Use: No Preferred Language: Ethiopian Communication Ability: Effective Director Surface Transportation Required: No Beliefs That Will Affect Care: None marital status: Single Current Living Situation: Other Current Living Situation Comment: [facility] current occupational status: disabled How many Children do You have: 1 How many Children do You have Comment: son Feels Safe at Home: Yes Assistive Devices: Cane, Denture - Upper, Denture - Lower, Glasses, Walker and Wheelchair Allergies Allergies Allergy/AdvReac Type Severity Reaction Status Date / Time No Known Allergies Allergy Verified 11/05/21 13:18 Home Meds Home Medications Medication Instructions Recorded Confirmed acetaminophen 650 mg 650 mg PO TID PRN 10/20/21 11/05/21 tablet,extended release (Tylenol Arthritis Pain) albuterol sulfate 2.5 mg INHALATION QID PRN 10/20/21 11/05/21 insulin NPH isoph U-100 human 100 16 unit SUBCUT HS 10/20/21 11/05/21 unit/mL subcutaneous suspension (Novolin N NPH U-100 Insulin isophane) insulin NPH isoph U-100 human 100 18 unit SUBCUT QAM 10/20/21 11/05/21 unit/mL subcutaneous suspension (Novolin N NPH U-100 Insulin isophane) levothyroxine 25 mcg tablet 25 mcg PO DAILY 10/20/21 11/05/21 doxazosin 1 mg tablet 3 mg PO BID 11/05/21 11/05/21 lanolin alcohols-mineral 1 applic TOPICAL BID 11/05/21 11/05/21 oil-w.petrolatum-ceresin topical cream (Eucerin) Previous Rx's Medication Instructions Recorded amlodipine 5 mg tablet (Norvasc) 5 mg PO BID #60 tab 10/31/21 furosemide 20 mg tablet (Lasix) 40 mg PO Q OTHER DAY #0 tab 10/31/21 Results & Data (ED) Vital Signs Vital Signs - 24 hr 11/05/21 11:14 11/05/21 11:15 11/05/21 11:30 Temperature 36.8 C Temperature Source Oral Pulse Rate 57 L 49 L 46 L Pulse Rate from SpO2 Sensor 54 L 48 L Respiratory Rate 20 22 24 Blood Pressure 149/56 H Blood Pressure Mean 87 Pulse Oximetry 100 100 Oxygen Delivery Method Room Air Sepsis Recent Fever Within 48 Hours No Sepsis New/Unexplained Change in Mental Status No Sepsis Action Taken by Nursing No Action Required 11/05/21 11:45 11/05/21 12:00 11/05/21 12:15 Temperature Temperature Source Pulse Rate 46 L 45 L 43 L Pulse Rate from SpO2 Sensor 46 L 45 L 42 L Respiratory Rate 19 25 H 20 Blood Pressure 139/56 L Blood Pressure Mean 83 Pulse Oximetry 100 100 97 Oxygen Delivery Method Sepsis Recent Fever Within 48 Hours Sepsis New/Unexplained Change in Mental Status Sepsis Action Taken by Nursing 11/05/21 12:30 11/05/21 12:31 11/05/21 12:45 Temperature Temperature Source Pulse Rate 52 L 49 L 52 L Pulse Rate from SpO2 Sensor 48 L 49 L 52 L Respiratory Rate 22 22 18 Blood Pressure 165/37 H Blood Pressure Mean 79 Pulse Oximetry 99 100 98 Oxygen Delivery Method Sepsis Recent Fever Within 48 Hours Sepsis New/Unexplained Change in Mental Status Sepsis Action Taken by Nursing 11/05/21 13:00 11/05/21 13:15 11/05/21 13:24 Temperature Temperature Source Pulse Rate 53 L 59 L 98 H Pulse Rate from SpO2 Sensor 53 L 55 L 98 H Respiratory Rate 15 17 24 Blood Pressure 162/57 H 185/73 H Blood Pressure Mean 92 110 Pulse Oximetry 99 100 100 Oxygen Delivery Method Sepsis Recent Fever Within 48 Hours Sepsis New/Unexplained Change in Mental Status Sepsis Action Taken by Nursing 11/05/21 13:30 11/05/21 13:45 Temperature Temperature Source Pulse Rate 97 H 96 H Pulse Rate from SpO2 Sensor 97 H 96 H Respiratory Rate 20 19 Blood Pressure Blood Pressure Mean Pulse Oximetry 99 99 Oxygen Delivery Method Sepsis Recent Fever Within 48 Hours Sepsis New/Unexplained Change in Mental Status Sepsis Action Taken by Nursing Laboratory Data Attestation: I reviewed the patient's lab results. Result diagrams: 11/05/21 11:20 11/05/21 14:27 Lab Results 11/05/21 11/05/21 11/05/21 Range/Units 11:20 11:20 11:20 WBC 6.98 (4.8-10.8) K/uL RBC 3.71 L (4.2-5.4) M/uL Hgb 11.4 L (12.0-16.0) g/dL POC Hgb (12.0-16.0) g/dl Hct 34.7 L (37-47) % POC Hct (37-47) % MCV 93.5 (80-100) fL MCH 30.7 (25-34) pg MCHC 32.9 (32-36) g/dL RDW Std Deviation 43.5 (36.4-46.3) fL RDW Coeff of Francis 12.7 (11.5-14.5) % Plt Count 332 (130-400) K/uL MPV 10.5 H (7.4-10.4) fL Immature Gran % (Auto) 0.3 % Neut % (Auto) 54.0 % Lymph % (Auto) 31.4 % Culberson % (Auto) 11.2 % Eos % (Auto) 3.0 % Baso % (Auto) 0.1 % Neut # (Auto) 3.77 (1.4-6.5) K/uL Lymph # (Auto) 2.19 (1.2-3.4) K/uL Culberson # (Auto) 0.78 H (0.11-0.59) K/uL Eos # (Auto) 0.21 (0-0.5) K/uL Baso # (Auto) 0.01 (0-0.2) K/uL Immature Gran # (Auto) 0.02 (0.00-0.02) K/uL PT (9.0-12.0) Seconds INR (0.9-1.1) POC Sodium (135-144) mmol/L Sodium 135 L (136-145) mmol/L POC Potassium (3.3-5.0) mmol/L Potassium 6.5 H* (3.5-5.1) mmol/L POC Chloride (101-112) mmol/L Chloride 107 (98-107) mmol/L Carbon Dioxide 24 (21-32) mmol/L POC Total CO2 (24-31) mmol/L Anion Gap 4 (3-11) POC Anion Gap (16-25) mmol/L POC BUN (7-18) mg/dl BUN 35 H (6-23) mg/dl Creatinine 1.10 (0.6-1.2) mg/dl POC Creatinine (0.6-1.3) mg/dl Est Cr Clr Drug Dosing 54.7 ml/min Est GFR ( Amer) 62.8 ml/min Est GFR (Non-Af Amer) 54.1 ml/min BUN/Creatinine Ratio 31.8 H (10-20) Glucose 156 H (70-99(Fasting)) mg/dl POC Glucose (70-99) mg/dl POC Glucose (other) (70-99) mg/dl Calcium 9.3 (8.5-10.1) mg/dl POC Ioniz Calcium Lizeth (1.12-1.32) mmol/l Phosphorus 5.7 H (2.5-4.9) mg/dl Magnesium 2.0 (1.7-2.4) mg/dl Total Bilirubin 0.2 (0.2-1.0) mg/dl Direct Bilirubin 0.0 (0-0.2) mg/dl AST 18 (13-39) U/L ALT 10 (7-52) U/L Alkaline Phosphatase 75 (34-104) U/L Troponin I High Sens 26.3 H (0-14) pg/ml B-Natriuretic Peptide (0-100) pg/ml Total Protein 6.8 (6.0-8.3) gm/dl Albumin 3.4 (3.4-5.0) gm/dl Globulin 3.4 (2.5-4.0) gm/dl Albumin/Globulin Ratio 1.0 (0.9-2) Lipase 5 L (11-82) U/L TSH (0.300-4.500) uIu/ml Free T4 (0.61-1.60) ng/dl Random Cortisol mcg/dl SARS-CoV-2, RNA, NAAT (NEGATIVE) 11/05/21 11/05/21 11/05/21 Range/Units 11:20 11:20 11:28 WBC (4.8-10.8) K/uL RBC (4.2-5.4) M/uL Hgb (12.0-16.0) g/dL POC Hgb 11.6 L (12.0-16.0) g/dl Hct (37-47) % POC Hct 34 L (37-47) % MCV (80-100) fL MCH (25-34) pg MCHC (32-36) g/dL RDW Std Deviation (36.4-46.3) fL RDW Coeff of Francis (11.5-14.5) % Plt Count (130-400) K/uL MPV (7.4-10.4) fL Immature Gran % (Auto) % Neut % (Auto) % Lymph % (Auto) % Culberson % (Auto) % Eos % (Auto) % Baso % (Auto) % Neut # (Auto) (1.4-6.5) K/uL Lymph # (Auto) (1.2-3.4) K/uL Culberson # (Auto) (0.11-0.59) K/uL Eos # (Auto) (0-0.5) K/uL Baso # (Auto) (0-0.2) K/uL Immature Gran # (Auto) (0.00-0.02) K/uL PT 11.3 (9.0-12.0) Seconds INR 1.1 (0.9-1.1) POC Sodium 136 (135-144) mmol/L Sodium (136-145) mmol/L POC Potassium 6.6 H* (3.3-5.0) mmol/L Potassium (3.5-5.1) mmol/L POC Chloride 107 (101-112) mmol/L Chloride (98-107) mmol/L Carbon Dioxide (21-32) mmol/L POC Total CO2 23 L (24-31) mmol/L Anion Gap (3-11) POC Anion Gap 13.0 L (16-25) mmol/L POC BUN 39 H (7-18) mg/dl BUN (6-23) mg/dl Creatinine (0.6-1.2) mg/dl POC Creatinine 1.0 (0.6-1.3) mg/dl Est Cr Clr Drug Dosing ml/min Est GFR ( Amer) ml/min Est GFR (Non-Af Amer) ml/min BUN/Creatinine Ratio (10-20) Glucose (70-99(Fasting)) mg/dl POC Glucose (70-99) mg/dl POC Glucose (other) 159 H (70-99) mg/dl Calcium (8.5-10.1) mg/dl POC Ioniz Calcium Lizeth 1.25 (1.12-1.32) mmol/l Phosphorus (2.5-4.9) mg/dl Magnesium (1.7-2.4) mg/dl Total Bilirubin (0.2-1.0) mg/dl Direct Bilirubin (0-0.2) mg/dl AST (13-39) U/L ALT (7-52) U/L Alkaline Phosphatase (34-104) U/L Troponin I High Sens (0-14) pg/ml B-Natriuretic Peptide 423 H (0-100) pg/ml Total Protein (6.0-8.3) gm/dl Albumin (3.4-5.0) gm/dl Globulin (2.5-4.0) gm/dl Albumin/Globulin Ratio (0.9-2) Lipase (11-82) U/L TSH (0.300-4.500) uIu/ml Free T4 (0.61-1.60) ng/dl Random Cortisol mcg/dl SARS-CoV-2, RNA, NAAT (NEGATIVE) 11/05/21 11/05/21 11/05/21 Range/Units 11:30 11:30 12:05 WBC (4.8-10.8) K/uL RBC (4.2-5.4) M/uL Hgb (12.0-16.0) g/dL POC Hgb (12.0-16.0) g/dl Hct (37-47) % POC Hct (37-47) % MCV (80-100) fL MCH (25-34) pg MCHC (32-36) g/dL RDW Std Deviation (36.4-46.3) fL RDW Coeff of Francis (11.5-14.5) % Plt Count (130-400) K/uL MPV (7.4-10.4) fL Immature Gran % (Auto) % Neut % (Auto) % Lymph % (Auto) % Culberson % (Auto) % Eos % (Auto) % Baso % (Auto) % Neut # (Auto) (1.4-6.5) K/uL Lymph # (Auto) (1.2-3.4) K/uL Culberson # (Auto) (0.11-0.59) K/uL Eos # (Auto) (0-0.5) K/uL Baso # (Auto) (0-0.2) K/uL Immature Gran # (Auto) (0.00-0.02) K/uL PT (9.0-12.0) Seconds INR (0.9-1.1) POC Sodium (135-144) mmol/L Sodium (136-145) mmol/L POC Potassium (3.3-5.0) mmol/L Potassium (3.5-5.1) mmol/L POC Chloride (101-112) mmol/L Chloride (98-107) mmol/L Carbon Dioxide (21-32) mmol/L POC Total CO2 (24-31) mmol/L Anion Gap (3-11) POC Anion Gap (16-25) mmol/L POC BUN (7-18) mg/dl BUN (6-23) mg/dl Creatinine (0.6-1.2) mg/dl POC Creatinine (0.6-1.3) mg/dl Est Cr Clr Drug Dosing ml/min Est GFR ( Amer) ml/min Est GFR (Non-Af Amer) ml/min BUN/Creatinine Ratio (10-20) Glucose (70-99(Fasting)) mg/dl POC Glucose (70-99) mg/dl POC Glucose (other) (70-99) mg/dl Calcium (8.5-10.1) mg/dl POC Ioniz Calcium Lizeth (1.12-1.32) mmol/l Phosphorus (2.5-4.9) mg/dl Magnesium (1.7-2.4) mg/dl Total Bilirubin (0.2-1.0) mg/dl Direct Bilirubin (0-0.2) mg/dl AST (13-39) U/L ALT (7-52) U/L Alkaline Phosphatase (34-104) U/L Troponin I High Sens (0-14) pg/ml B-Natriuretic Peptide (0-100) pg/ml Total Protein (6.0-8.3) gm/dl Albumin (3.4-5.0) gm/dl Globulin (2.5-4.0) gm/dl Albumin/Globulin Ratio (0.9-2) Lipase (11-82) U/L TSH 19.281 H (0.300-4.500) uIu/ml Free T4 0.82 (0.61-1.60) ng/dl Random Cortisol 11.53 mcg/dl SARS-CoV-2, RNA, NAAT NEGATIVE (NEGATIVE) 11/05/21 Range/Units 12:55 WBC (4.8-10.8) K/uL RBC (4.2-5.4) M/uL Hgb (12.0-16.0) g/dL POC Hgb (12.0-16.0) g/dl Hct (37-47) % POC Hct (37-47) % MCV (80-100) fL MCH (25-34) pg MCHC (32-36) g/dL RDW Std Deviation (36.4-46.3) fL RDW Coeff of Francis (11.5-14.5) % Plt Count (130-400) K/uL MPV (7.4-10.4) fL Immature Gran % (Auto) % Neut % (Auto) % Lymph % (Auto) % Culberson % (Auto) % Eos % (Auto) % Baso % (Auto) % Neut # (Auto) (1.4-6.5) K/uL Lymph # (Auto) (1.2-3.4) K/uL Culberson # (Auto) (0.11-0.59) K/uL Eos # (Auto) (0-0.5) K/uL Baso # (Auto) (0-0.2) K/uL Immature Gran # (Auto) (0.00-0.02) K/uL PT (9.0-12.0) Seconds INR (0.9-1.1) POC Sodium (135-144) mmol/L Sodium (136-145) mmol/L POC Potassium (3.3-5.0) mmol/L Potassium (3.5-5.1) mmol/L POC Chloride (101-112) mmol/L Chloride (98-107) mmol/L Carbon Dioxide (21-32) mmol/L POC Total CO2 (24-31) mmol/L Anion Gap (3-11) POC Anion Gap (16-25) mmol/L POC BUN (7-18) mg/dl BUN (6-23) mg/dl Creatinine (0.6-1.2) mg/dl POC Creatinine (0.6-1.3) mg/dl Est Cr Clr Drug Dosing ml/min Est GFR ( Amer) ml/min Est GFR (Non-Af Amer) ml/min BUN/Creatinine Ratio (10-20) Glucose (70-99(Fasting)) mg/dl POC Glucose 250 H (70-99) mg/dl POC Glucose (other) (70-99) mg/dl Calcium (8.5-10.1) mg/dl POC Ioniz Calcium Lizeth (1.12-1.32) mmol/l Phosphorus (2.5-4.9) mg/dl Magnesium (1.7-2.4) mg/dl Total Bilirubin (0.2-1.0) mg/dl Direct Bilirubin (0-0.2) mg/dl AST (13-39) U/L ALT (7-52) U/L Alkaline Phosphatase (34-104) U/L Troponin I High Sens (0-14) pg/ml B-Natriuretic Peptide (0-100) pg/ml Total Protein (6.0-8.3) gm/dl Albumin (3.4-5.0) gm/dl Globulin (2.5-4.0) gm/dl Albumin/Globulin Ratio (0.9-2) Lipase (11-82) U/L TSH (0.300-4.500) uIu/ml Free T4 (0.61-1.60) ng/dl Random Cortisol mcg/dl SARS-CoV-2, RNA, NAAT (NEGATIVE) Administered Medications Acetaminophen (Acetaminophen 325 Mg Tab) 650 mg PO TID PRN PRN Reason: Pain Stop: 12/05/21 16:00 Last Admin: 11/05/21 21:45 Dose: 650 mg Documented by: [id number] Amlodipine Besylate (Amlodipine Besylate 5 Mg Tab) 5 mg PO BID MARYBETH Stop: 12/05/21 15:59 Last Admin: 11/05/21 16:56 Dose: 5 mg Documented by: [id number] Doxazosin Mesylate (Doxazosin Mesylate 1 Mg Tab) 3 mg PO BID@0900,1730 MARYBETH Stop: 12/05/21 17:29 Last Admin: 11/05/21 17:15 Dose: 3 mg Documented by: [id number] Heparin Sodium (Porcine) (Heparin Sod 5,000 Unit/0.5 Ml Vial) 5,000 units SQ Q8H MARYBETH Stop: 12/05/21 15:59 Last Admin: 11/05/21 16:57 Dose: 5,000 units Documented by: [id number] Hydralazine HCl (Hydralazine Hcl 20 Mg/Ml Vial) 10 mg IV Q6H PRN PRN Reason: SBP>180 Stop: 12/05/21 16:40 Last Admin: 11/05/21 17:17 Dose: 10 mg Documented by: [id number] Multi-Ingredient Cream (Eucerin Cr 120 Gm Jar) 1 appln TOP BID MARYBETH Stop: 12/05/21 20:59 Last Admin: 11/05/21 21:49 Dose: 1 appln Documented by: [id number] Umeclidinium/Vilanterol (Umeclidinium/Vilanterol 62.5/25mcg 7 Puffs/Inhaler) 1 puffs INH DAILY MARYBETH Stop: 12/05/21 16:14 Last Admin: 11/05/21 16:30 Dose: 1 puffs Documented by: [id number] Discontinued Medications Dextrose (Dextrose 50% 50 Ml Syringe) 100 ml IV NOW STA Stop: 11/05/21 11:42 Last Admin: 11/05/21 12:10 Dose: 100 ml Documented by: [id number] Furosemide (Furosemide Inj 20 Mg/2 Ml Vial) 20 mg IV ONE ONE Stop: 11/05/21 16:20 Last Admin: 11/05/21 16:58 Dose: 20 mg Documented by: [id number] Insulin Human Regular 10 units (/ Syringe) 9.9 mls @ 3 mls/sec IV ONE STA Stop: 11/05/21 11:42 Last Admin: 11/05/21 12:10 Dose: 3 mls/sec Documented by: [id number] Cosigned by: [id number] Calcium Gluconate 3,000 mg/ (Dextrose) 80 mls @ 240 mls/hr IV ONCE STA Stop: 11/05/21 12:00 Last Infusion: 11/05/21 15:41 Dose: 0 mls/hr Documented by: [id number] Admin: 11/05/21 12:10 Dose: 240 mls/hr Documented by: [id number] Insulin Human Regular (Novolin-R Insulin Per Unit Charge) Confirm Administered Dose 10 units .ROUTE .STK-MED ONE Stop: 11/05/21 11:51 Last Admin: 11/05/21 12:10 Dose: Not Given Documented by: [id number] Ondansetron HCl (Ondansetron Inj 2 Mg/Ml 2 Ml Vial) 4 mg IV NOW STA Stop: 11/05/21 12:53 Last Admin: 11/05/21 13:15 Dose: 4 mg Documented by: [id number] Patiromer (Patiromer Calcium Sorbitex 8.4 Gm Pack) 8.4 gm PO NOW STA Stop: 11/05/21 12:47 Last Admin: 11/05/21 14:14 Dose: 8.4 gm Documented by: [id number] Sodium Bicarbonate (Sodium Bicarb 8.4% Inj 50 Meq/50 Ml Syr) 50 meq IV NOW STA Stop: 11/05/21 13:03 Last Admin: 11/05/21 13:15 Dose: 50 meq Documented by: [id number] Imaging Data Radiologist's Impression: Chest X-Ray 11/05/21 11:14 XR chest 1V portable HISTORY: 61 years-old Female Chest Pain acute atypical chest pain COMPARISON: Chest radiograph 10/29/2021 TECHNIQUE: Portable AP view of the chest FINDINGS: The cardiac silhouette is enlarged. Pulmonary vascular congestion with improved pulmonary edema. No pneumothorax. Probable trace pleural effusions. Mild biba silar opacities suggest atelectasis. Bones appear grossly intact. IMPRESSION: 1. Cardiomegaly with improved pulmonary edema. 2. Trace pleural effusions with mild bibasilar atelectasis. ACT 112: Negative or not required by law. The above report was generated using voice recognition software. It may contain grammatical, syntax or spelling errors. Electronically signed by: Olman Rodriguez M.D. 11/05/2021 11:42 AM Discharge Plan Visit Data Chief Complaint: Arrhythmia/Palpitations Stated Complaint: CHEST PAIN ED Provider: Mio Carbajal Discharge Problem: Acute hyperkalemia, Symptomatic bradycardia, Elevated troponin Patient Disposition: Admitted As Inpatient Discharge Instructions Interventions: ED Discharge Assessment Last Done: 11/05/21 15:27
[2021-11-05] MEDS ORDERED: ALBUTEROL 0.083% NEBU SOLN 3 ML VIAL INH PRN (16:01)
[2021-11-05] MEDS ORDERED: ICU PROTOCOL FOR HYPERGLYCEMIA PRN (16:01)
--- NOTE | 2021-11-05 16:04 | Critical Care Consultation ---
Date of Consultation November 05, 2021 Assessment & Plan (1) Acute hyperkalemia: (2) Symptomatic bradycardia: (3) Elevated troponin: (4) Junctional bradycardia: (5) History of tobacco use: (6) COPD (chronic obstructive pulmonary disease): 61-year-old female present to the hospital because of dizziness. Was found to be in wide-complex junctional rhythm and hyperkalemia with potassium 6.5 Sent to the ICU for further monitoring --Acute hyperkalemia S/p hyperkalemia cocktail in the ED which included calcium gluconate, insulin, albuterol as well as bicarb Avoid any medication which can increase potassium No clear etiology for hyperkalemia RTA usually give hypokalemia and/or eukalemia. Type IV RTA usually gives hypotension. She never got a dose before Follow-up urine lites and urine pH LDH normal, CPK normal making rhabdo unlikely --Wide complex junctional rhythm Patient did have history of bradycardic episodes even on previous admission Underlying cardiac etiology might be playing a role on top of hyperkalemia Back to sinus rhythm currently. Avoid negative inotropic medication TSH: 19, it has been creeping up since last September. Continue to monitor We will get cardiology involved --Hypothyroidism TSH 19 Increase levothyroxine dose from 25mcg to 50mcg --Hypertension Avoid negative inotropic medication Continue with amlodipine 5 mg twice daily, doxazosin 3 mg twice daily If the patient blood pressure is still uncontrolled BiDil can be added --COPD Not on any inhalers at home Started on Anoro --Diastolic CHF Continue with diuretics --Prophylaxis VTE: Heparin GI: None Lines: Peripheral Diet: Low potassium Plan: Monitor potassium level Give another dose of patiromer and a dose of Lasix 20 mg Start Lasix 40 mg to be used on a daily basis tomorrow Increase dose of levothyroxine to 50 MCG Case was discussed with Dr. Shabazz I have personally spent 63 minutes of critical care time in the direct management of this patient. This is a life/limb threatening event. This includes time spent evaluating patient, direct bedside care, chart review, placing orders, interpretation of diagnostic studies, discussion with consultants, patient, and family members, as well as other required patient management activities. This time is exclusive of all separately billable procedures, and teaching time and separate from and in addition to any other critical care service time. Please note the above document was generated using voice recognition software. It may contain grammatical, syntax or spelling errors. History of Present Illness History of Present Illness 61-year-old female presented to the hospital with complaints of presyncope and dizziness Past medical history: Diastolic CHF Patient has been incarcerated. In the ER patient was found to have potassium of 6.5, ICU was consulted because of junctional rhythm and hyperkalemia At the time of examination patient says she is feeling better since coming to the hospital She was having sinus rhythm on the telemetry strip Blood pressure was 176/72. She denied any issues with her breathing She was saturating 98-99% on room air. Denied any headache, no nausea or vomiting. No blurry vision. On asking whether she has been taking her medication on regular basis she stated yes. She had some issues with her Synthroid stating that it made her headache and she was not taking it. But she does say that it was changed and she has been taking the small pills. Denies any dysuria, no diarrhea. No hemoptysis. No fever or chills. Social history: [id number] smoking history, not smoke since 4 months, used to be a heavy alcoholic quit 4 months ago since incarceration. Allergies Allergy/AdvReac Type Severity Reaction Status Date / Time No Known Allergies Allergy Verified 11/05/21 13:18 Home Medications Medication Instructions Recorded Confirmed Type acetaminophen 650 mg 650 mg PO TID PRN 10/20/21 11/05/21 History tablet,extended release (Tylenol Arthritis Pain) albuterol sulfate 2.5 mg INHALATION QID PRN 10/20/21 11/05/21 History insulin NPH isoph U-100 human 100 16 unit SUBCUT HS 10/20/21 11/05/21 History unit/mL subcutaneous suspension (Novolin N NPH U-100 Insulin isophane) insulin NPH isoph U-100 human 100 18 unit SUBCUT QAM 10/20/21 11/05/21 History unit/mL subcutaneous suspension (Novolin N NPH U-100 Insulin isophane) levothyroxine 25 mcg tablet 25 mcg PO DAILY 10/20/21 11/05/21 History amlodipine 5 mg tablet (Norvasc) 5 mg PO BID #60 tab 10/31/21 11/05/21 Rx furosemide 20 mg tablet (Lasix) 40 mg PO Q OTHER DAY #0 tab 10/31/21 11/05/21 Rx doxazosin 1 mg tablet 3 mg PO BID 11/05/21 11/05/21 History lanolin alcohols-mineral 1 applic TOPICAL BID 11/05/21 11/05/21 History oil-w.petrolatum-ceresin topical cream (Eucerin) Patient History Medical History Acute head injury Acute hyponatremia Avulsed toenail Chronic alcohol use COPD (chronic obstructive pulmonary disease) Diabetes Diabetic neuropathy Diastolic heart failure History of tobacco use Hypertension Hypokalemia Hypomagnesemia Hypothyroid Pulmonary nodules/lesions, multiple Renal artery stenosis Tinea pedis Surgical History History of amputation Left foot TMA Family History Father Dementia in his 80s Mother , in her 70s Diabetes CHF (congestive heart failure) Social History (Updated 11/05/21 @ 13:40 by David Shabazz) Smoking Status: Former smoker Tobacco Type: Cigarettes Age Started Using Tobacco: 16; packs per day: 0.5; Smoking End Date: early 2021; Second Hand Exposure: Yes; Do You Dip or Chew Tobacco: No; Hx Alcohol Use: Yes Alcohol type: hard liquor Alcohol Intake Frequency Comment: daily, at least 3 shots Hx Substance Use: No Preferred Language: Belgian Communication Ability: Effective Skiver [place] End Required: No Beliefs That Will Affect Care: None marital status: Single Current Living Situation: Other Current Living Situation Comment: senior care current occupational status: disabled How many Children do You have: 1 How many Children do You have Comment: son Feels Safe at Home: Yes Assistive Devices: Cane, Denture - Upper, Denture - Lower, Glasses, Walker and Wheelchair Review of Systems Review of Systems: All systems reviewed & are unremarkable except as noted in HPI & below Physical Exam Physical Exam: Constitutional: No acute distress HEENT: EOMI, PERRLA Respiratory system: Decreased air entry bilaterally, no wheeze, no rhonchi, positive crackles bilateral lower lobe CVS: S1-S2 positive, no murmurs or gallops Abdomen: Soft, nontender, nondistended, positive bowel sounds x4 Extremities: +2 pulses bilaterally radialis/ dorsalis pedis, no cyanosis, +1 pitting edema bilateral lower extremity, left TMA Neuro: Awake alert oriented x3 Psych: Normal mood and affect G/U: No Hurley Skin: no rashes, warm and dry Lymphatic: no cervical or axillary lymphadenopathy Results & Data Results & Data ([facility]) Vital Signs (Past 12 Hours) Vital Signs Temp Pulse Resp BP Pulse Ox 11/05/21 15:56 37.2 C 11/05/21 15:45 83 21 175/72 H 100 11/05/21 15:30 87 15 183/76 H 99 11/05/21 14:15 92 H 21 11/05/21 14:00 96 H 21 100 11/05/21 13:45 96 H 19 99 11/05/21 13:30 97 H 20 99 11/05/21 13:24 98 H 24 185/73 H 100 11/05/21 13:15 59 L 17 100 11/05/21 13:00 53 L 15 162/57 H 99 11/05/21 12:45 52 L 18 98 11/05/21 12:31 49 L 22 165/37 H 100 11/05/21 12:30 52 L 22 99 11/05/21 12:15 43 L 20 97 11/05/21 12:00 45 L 25 H 139/56 L 100 11/05/21 11:45 46 L 19 100 11/05/21 11:30 46 L 24 11/05/21 11:15 36.8 C 49 L 22 149/56 H 100 11/05/21 11:14 57 L 20 100 Laboratory Results 11/05/21 11:20 Coding Level of Care Code Critical Care 1st 30-74 mins Diagnoses Acute hyperkalemia E87.5 Symptomatic bradycardia R00.1 Elevated troponin R77.8 Junctional bradycardia R00.1 History of tobacco use Z87.891 COPD (chronic obstructive pulmonary disease) J44.9 COPD type: unspecified COPD Time Spent (min) 63 (1) COPD (chronic obstructive pulmonary disease) COPD type: unspecified COPD Qualified Code(s): J44.9 - Chronic obstructive pulmonary disease, unspecified
[2021-11-05 16:08] LABS: Appearance Urine Clear (Clear); Bacteria Urine Automated Negative (Negative); Bilirubin Urine Negative (Negative); Blood Urine 1+ (Negative); Color Urine Yellow; Epithelial Cell Urine Auto >30 /lpf (0-5); Glucose Urine UA Negative (Negative); Ketones Urine Negative (Negative); Leukocyte Esterase Urine Trace (Negative); Nitrite Urine Negative (Negative); RBC Urine Automated 0-4 /hpf (0-4); Specific Gravity Urine 1.011 (1.000-1.030); Urobilinogen Urine Negative (Negative)
[2021-11-05 16:12] LABS: Creatinine Clr Calc Pharmacy 58.4 ml/min; Est GFR (African American) 67.9 ml/min; Est GFR (Non-African American) 58.6 ml/min; Potassium 5.8 mmol/L (3.5-5.1)
[2021-11-05] MEDS ORDERED: FUROSEMIDE INJ 20 MG/2 ML VIAL IV ONE (16:19)
[2021-11-05 16:22] LABS: Protein Urine 3+ (Negative)
[2021-11-05] MEDS: UMECLIDINIUM/VILANTEROL 62.5/25MCG 7 PUFFS/INHALER INH SCH (16:30)
[2021-11-05] MEDS ORDERED: Nursing to Pharmacy Communication SCH ×2 (16:45→17:00)
[2021-11-05 16:46] LABS: Creatinine Urine Random 21.5 mg/dl; Potassium Random Urine 28.8 mmol/L
[2021-11-05 16:47] LABS: Amphetamines+Metham, Urine Neg (Neg); Barbiturates, Urine Neg (Neg); Benzodiazepine, Urine Neg (Neg); Cocaine, Urine Neg (Neg); MDMA (Ecstacy), Urine Neg (Neg); Methadone, Urine Neg (Neg); Opiate, Urine Neg (Neg); Phencyclidine, Urine Neg (Neg)
[2021-11-05] MEDS: amLODIPine BESYLATE 5 MG TAB PO SCH (16:56)
[2021-11-05] MEDS: HEPARIN SOD 5,000 UNIT/0.5 ML VIAL SQ SCH ×2 (16:57→23:33)
[2021-11-05] MEDS: DOXAZOSIN MESYLATE 1 MG TAB PO SCH (17:15)
[2021-11-05] MEDS: hydrALAZINE HCL 20 MG/ML VIAL IV PRN (17:17)
[2021-11-05 19:32] LABS: T4 Free Thyroxine 0.82 ng/dl (0.61-1.60)
[2021-11-05] MEDS ORDERED: amLODIPine BESYLATE 5 MG TAB PO SCH (21:00)
[2021-11-05] MEDS ORDERED: DOXAZOSIN MESYLATE 1 MG TAB PO SCH (21:00)
[2021-11-05] MEDS: ACETAMINOPHEN 325 MG TAB PO PRN (21:45)
[2021-11-05] MEDS: EUCERIN CR 120 GM JAR TOP SCH (21:49)
[2021-11-06 00:19] LABS: BUN Creatinine Ratio 26.2 (10-20); Calcium 9.4 mg/dl (8.5-10.1); Creatinine Clr Calc Pharmacy 46.2 ml/min; Est GFR (African American) 51.3 ml/min; Est GFR (Non-African American) 44.2 ml/min; Potassium 6.2 mmol/L (3.5-5.1); Troponin I High Sensitivity 23.9 pg/ml (0-14)
[2021-11-06] MEDS ORDERED: PATIROMER CALCIUM SORBITEX 8.4 GM PACK PO STA (01:22)
[2021-11-06] MEDS ORDERED: DEXTROSE 50% 50 ML SYRINGE IV ONE (01:23)
[2021-11-06] MEDS ORDERED: INSULIN HUMAN REGULAR PER UNIT 10 UNITS in SYRINGE 9.9 ML IV STA (01:30)
[2021-11-06 02:18] LABS: BUN Creatinine Ratio 28.1 (10-20); Calcium 9.1 mg/dl (8.5-10.1); Creatinine Clr Calc Pharmacy 49.7 ml/min; Est GFR (African American) 55.9 ml/min; Est GFR (Non-African American) 48.3 ml/min; Potassium 5.7 mmol/L (3.5-5.1)
[2021-11-06] MEDS: LEVOTHYROXINE SODIUM 50 MCG TABLET PO SCH (05:19)
[2021-11-06 05:36] LABS: BUN Creatinine Ratio 27.1 (10-20); Calcium 9.8 mg/dl (8.5-10.1); Creatinine Clr Calc Pharmacy 46.9 ml/min; Est GFR (African American) 57.6 ml/min; Est GFR (Non-African American) 49.7 ml/min; Potassium 5.3 mmol/L (3.5-5.1)
--- NOTE | 2021-11-06 05:53 | Electrocardiogram Report ---
Test Reason : Blood Pressure : / mmHG Vent. Rate : 056 BPM Atrial Rate : 214 BPM P-R Int : 000 ms QRS Dur : 078 ms QT Int : 446 ms P-R-T Axes : 000 063 062 degrees QTc Int : 430 ms Junctional rhythm with Premature supraventricular complexes with ventricular escape complexes Abnormal ECG When compared with ECG of 20-OCT-2021 19:00, Junctional rhythm has replaced Sinus rhythm Ventricular complexes are now present Confirmed by Camden Mccormick ([id number]) on 11/06/2021 5:52:59 AM Referred By: REFERRED SELF Confirmed By:Camden Mccormick
--- NOTE | 2021-11-06 06:00 | Electrocardiogram Report ---
Test Reason : Blood Pressure : / mmHG Vent. Rate : 054 BPM Atrial Rate : 063 BPM P-R Int : 000 ms QRS Dur : 084 ms QT Int : 430 ms P-R-T Axes : 000 064 061 degrees QTc Int : 407 ms Junctional rhythm Abnormal ECG When compared with ECG of 05-NOV-2021 11:08, Ventricular complexes are no longer present Confirmed by Camden Mccormick ([id number]) on 11/06/2021 5:59:58 AM Referred By: REFERRED SELF Confirmed By:Camden Mccormick
--- NOTE | 2021-11-06 06:03 | Electrocardiogram Report ---
Test Reason : Blood Pressure : / mmHG Vent. Rate : 098 BPM Atrial Rate : 098 BPM P-R Int : 164 ms QRS Dur : 084 ms QT Int : 344 ms P-R-T Axes : 056 063 057 degrees QTc Int : 439 ms Normal sinus rhythm Normal ECG When compared with ECG of 05-NOV-2021 12:48, Sinus rhythm has replaced Junctional rhythm Vent. rate has increased BY 44 BPM Confirmed by Camden Mccormick ([id number]) on 11/06/2021 6:03:03 AM Referred By: REFERRED SELF Confirmed By:Camden Mccormick
[2021-11-06 06:10] LABS: Basophils # (auto) 0.02 K/uL (0-0.2); Basophils % (auto) 0.3 %; Hematocrit (blood only) 32.2 % (37-47); Hemoglobin 10.6 g/dL (12.0-16.0); Immature Granulocytes # (auto) 0.01 K/uL (0.00-0.02); Immature Granulocytes % (auto) 0.2 %; Lymphocytes # (auto) 2.61 K/uL (1.2-3.4); Lymphocytes % (auto) 39.4 %; Mean Corpuscular Hgb Conc 32.9 g/dL (32-36); Mean Corpuscular Volume 94.2 fL (80-100); Mean Platelet Volume 10.1 fL (7.4-10.4); Monocytes # (auto) 0.66 K/uL (0.11-0.59); Neutrophils # (auto) 3.12 K/uL (1.4-6.5); Neutrophils % (auto) 47.1 %; Platelet Count 323 K/uL (130-400); RDW Coefficient of Variation 12.6 % (11.5-14.5); RDW Standard Deviation 43.3 fL (36.4-46.3); Red Blood Count 3.42 M/uL (4.2-5.4); White Blood Count 6.62 K/uL (4.8-10.8)
[2021-11-06] MEDS: DOXAZOSIN MESYLATE 1 MG TAB PO SCH ×2 (08:30→17:11)
[2021-11-06] MEDS: FUROSEMIDE 40 MG TAB PO SCH (08:30)
[2021-11-06] MEDS: HEPARIN SOD 5,000 UNIT/0.5 ML VIAL SQ SCH ×2 (08:31→22:01)
[2021-11-06] MEDS: EUCERIN CR 120 GM JAR TOP SCH ×2 (08:31→22:01)
[2021-11-06] MEDS: UMECLIDINIUM/VILANTEROL 62.5/25MCG 7 PUFFS/INHALER INH SCH (08:32)
[2021-11-06] MEDS: amLODIPine BESYLATE 5 MG TAB PO SCH ×2 (08:32→22:00)
[2021-11-06] MEDS ORDERED: LEVOTHYROXINE SODIUM 25 MCG TABLET PO SCH (09:00)
[2021-11-06] MEDS ORDERED: amLODIPine BESYLATE 5 MG TAB PO SCH (09:00)
[2021-11-06] MEDS ORDERED: PANTOprazole 40 MG TAB PO SCH (09:00)
[2021-11-06] MEDS: hydrALAZINE HCL 20 MG/ML VIAL IV PRN ×2 (09:13→17:07)
[2021-11-06] MEDS ORDERED: LACTULOSE SYRUP 20 GM/30 ML UDC PO ONE (09:31)
--- NOTE | 2021-11-06 09:32 | Critical Care Progress Note ---
Date of Service November 06, 2021 Assessment & Plan (1) Acute hyperkalemia: (2) Symptomatic bradycardia: (3) Elevated troponin: (4) Junctional bradycardia: (5) History of tobacco use: (6) COPD (chronic obstructive pulmonary disease): Plan: 61-year-old female present to the hospital because of dizziness. Was found to be in wide-complex junctional rhythm and hyperkalemia with potassium 6.5 Sent to the ICU for further monitoring --Acute hyperkalemia S/p hyperkalemia cocktail in the ED which included calcium gluconate, insulin, albuterol as well as bicarb Avoid any medication which can increase potassium No clear etiology for hyperkalemia RTA usually give hypokalemia and/or eukalemia. Type IV RTA usually gives hypotension. She never got a dose before Resistance to aldosterone/ Federico's syndrome a possibility Urine: pH 8, sodium 111, potassium 28.8, chloride 102, urine gap greater than 20 LDH normal, CPK normal making rhabdo unlikely --Wide complex junctional rhythm Patient did have history of bradycardic episodes even on previous admission Underlying cardiac etiology might be playing a role on top of hyperkalemia Back to sinus rhythm currently. Avoid negative inotropic medication TSH: 19, it has been creeping up since last September. Continue to monitor Recommend cardiology evaluation --Hypothyroidism TSH 19 Increase levothyroxine dose from 25mcg to 50mcg --Hypertension Avoid negative inotropic medication Continue with amlodipine 5 mg twice daily, doxazosin 3 mg twice daily If the patient blood pressure is still uncontrolled BiDil can be added --COPD Not on any inhalers at home Started on Anoro --Diastolic CHF Continue with diuretics --Prophylaxis VTE: Heparin GI: None Lines: Peripheral Diet: Low potassium Plan: In/out: -1735, urine output 2275 Patient's potassium today is 5.3. The time of examination patient blood pressure was 167 systolic. Hydralazine 50 mg twice daily added to the regimen We will give a dose of lactulose Continue with patiromer Continue with p.o. Lasix Patient hemodynamically stable to be downgraded to [facility] floor Discussed with Dr. Shabazz Please note the above document was generated using voice recognition software. It may contain grammatical, syntax or spelling errors. Admission and Anticipated Discharge Date Admission Date: November 05, 2021 Subjective Patient seen and examined at bedside. No acute distress, no events overnight Denied any headache, no nausea or vomiting Had breakfast in the morning Did complain of feeling cold No headache, no blurry vision Has been urinating well Review of Systems Review of Systems: All systems reviewed & are unremarkable except as noted in Subjective Physical Exam Physical Exam: Constitutional: No acute distress HEENT: EOMI, PERRLA Respiratory system: Decreased air entry bilaterally, no wheeze, no rhonchi, po sitive crackles bilateral lower lobe CVS: S1-S2 positive, +3 out of systolic murmur appreciated best at the aorta Abdomen: Soft, nontender, nondistended, positive bowel sounds x4 Extremities: +2 pulses bilaterally radialis/ dorsalis pedis, no cyanosis, +1 pitting edema bilateral lower extremity, left TMA Neuro: Awake alert oriented x3 Psych: Normal mood and affect G/U: No Hurley Skin: no rashes, warm and dry Lymphatic: no cervical or axillary lymphadenopathy Results & Data Results & Data ([facility]) Vital Signs (Past 12 Hours) Vital Signs Temp Pulse Pulse Resp BP BP BP 11/06/21 08:00 92 H 11/06/21 07:30 87 20 11/06/21 07:22 87 12 157/78 H 11/06/21 07:00 37.0 C 89 14 149/63 H 11/06/21 06:00 87 17 165/76 H 11/06/21 05:20 182/80 H 11/06/21 05:00 87 20 177/81 H 11/06/21 04:10 36.6 C 74 18 151/64 H 11/06/21 04:00 82 18 184/79 H 11/06/21 03:00 88 14 11/06/21 02:47 76 11/06/21 02:00 87 14 158/70 H 11/06/21 01:00 73 12 11/06/21 00:00 68 21 153/72 H 11/05/21 23:42 36.9 C 76 17 157/67 H Pulse Ox 11/06/21 08:00 11/06/21 07:30 99 11/06/21 07:22 94 11/06/21 07:00 93 11/06/21 06:00 95 11/06/21 05:20 11/06/21 05:00 99 11/06/21 04:10 95 11/06/21 04:00 95 11/06/21 03:00 97 11/06/21 02:47 11/06/21 02:00 97 11/06/21 01:00 96 11/06/21 00:00 96 11/05/21 23:42 99 Laboratory Results 11/06/21 05:03 11/06/21 05:03 Coding Level of Care Code 41318 Subseq Hosp Care Lvl 3 Diagnoses Acute hyperkalemia E87.5 Symptomatic bradycardia R00.1 Elevated troponin R77.8 Junctional bradycardia R00.1 History of tobacco use Z87.891 COPD (chronic obstructive pulmonary disease) J44.9 COPD type: unspecified COPD (1) COPD (chronic obstructive pulmonary disease) COPD type: unspecified COPD Qualified Code(s): J44.9 - Chronic obstructive pulmonary disease, unspecified
[2021-11-06] MEDS: hydrALAZINE TAB 50 MG TAB PO SCH ×2 (10:00→21:59)
--- NOTE | 2021-11-06 10:42 | Hospitalist Progress Note ---
Date of Service November 06, 2021 Assessment & Plan (1) Junctional bradycardia: Plan: 2nd to #2 below. resolved s/p Rx of hyperkalemia. has remained in NSR since late yesterday. Of note - during her prior hospitalization last week her beta ryan was stopped due to sinus bradycardia. There is mention in the record about brief episodes of asymptomatic junctional bradycardia. She continues to not be on any AV richardson agents. See discussion below regarding hypothyroidism. Cardiology formally consulted to ensure nothing is needed from their standpoint. Continue telemetry. (2) Hyperkalemia: Plan: resolving s/p usual Rx including K-binding agents (veltassa), NaBicarbonate, Calcium, etc. etiology uncertain. During the previous visit her K level was top-normal as well. She is not on BETZAIDA or ARB therapy, potassium supplementation or any other medication that would cause high K levels. Renal function is intact. cortisol level not suggestive of adrenal insufficiency. ABG without acidosis. CPK wnl. hypoaldosteronism? other kidney defect leading to lack of potassium excretion at the level of the kidney? other? will consult nephrology for their opinion. bmp in am. cont veltassa daily. low K diet. (3) COPD (chronic obstructive pulmonary disease): Plan: no exacerbation at this time cont outpatient inhalers (4) Diastolic heart failure: Plan: remains compensated at this time lasix 40mg po daily resumed (5) Hypertension, uncontrolled: Plan: during the previous visit she had HTN emergency multiple med adjustments were made including stoppage of her lisinopril (due to top-normal K level) renal artery stenosis was discovered on CTA - she has such on the right with stenosis of >50%; uncertain if contributing to refractory HTN, however cont amlodipine, doxazosin cont lasix hydralazine added today work-up for pheochromocytoma sent may need additional agents depending on response appreciate any recs from cardiology and/or nephrology (6) Renal artery stenosis: Plan: see above (7) Diabetes: Plan: glycemic control with novolog ac/hs BSGs DM diet (8) History of tobacco use: (9) Chronic alcohol use: Plan: no signs of etoh withdrawal (10) DVT prophylaxis: Plan: heparin 5000 TID (11) Hypothyroid: Plan: TSH continues to remain high; level of 19 yesterday there is mention in the previous d/c summary that she had not been compliant with her levothyroxine due to side effects the levothyroxine was restarted at 25mcg daily for a level of 19 typically I would start an adult on 50mcg/day thus her levothyroxine was increased to that dose recheck TSH in 6 weeks as outpatient Plan: tx from ICU to PCU await cardiology/nephrology assistance Admission and Anticipated Discharge Date Admission Date: November 05, 2021 Subjective patient feels better today no dizziness, lightheadedness, cp, dyspnea, palpitations remained in NSR all night denies any new complaints Review of Systems Review of Systems: gen - no fevers, appetite ok cv - no cp, no orthopnea pulm - no cough GI - no abd pain, nausea, emesis Physical Exam Physical Exam: gen - looks better today, NAD mouth - MMM neck - no JVD heart - RRR, s1 s2, no murmur lungs - CTA b/l abd - soft NT ND BS+ ext - no edema, pulses 2+ b/l, left foot TMA Results & Data Results & Data ([facility]) Vital Signs (Past 12 Hours) Vital Signs Temp Pulse Pulse Resp BP BP BP 11/06/21 10:01 98 H 18 180/61 H 11/06/21 10:00 96 H 21 11/06/21 09:03 92 H 17 182/79 H 11/06/21 09:00 37.2 C 92 H 15 187/83 H 11/06/21 08:22 86 17 162/76 H 11/06/21 08:00 90 15 191/76 H 11/06/21 07:30 87 20 11/06/21 07:22 87 12 157/78 H 11/06/21 07:00 37.0 C 89 14 149/63 H 11/06/21 06:00 87 17 165/76 H 11/06/21 05:20 182/80 H 11/06/21 05:00 87 20 177/81 H 11/06/21 04:10 36.6 C 74 18 151/64 H 11/06/21 04:00 82 18 184/79 H 11/06/21 03:00 88 14 11/06/21 02:47 76 11/06/21 02:00 87 14 158/70 H 11/06/21 01:00 73 12 11/06/21 00:00 68 21 153/72 H 11/05/21 23:42 36.9 C 76 17 157/67 H Pulse Ox 11/06/21 10:01 98 11/06/21 10:00 11/06/21 09:03 96 11/06/21 09:00 95 11/06/21 08:22 100 11/06/21 08:00 97 11/06/21 07:30 99 11/06/21 07:22 94 11/06/21 07:00 93 11/06/21 06:00 95 11/06/21 05:20 11/06/21 05:00 99 11/06/21 04:10 95 11/06/21 04:00 95 11/06/21 03:00 97 11/06/21 02:47 11/06/21 02:00 97 11/06/21 01:00 96 11/06/21 00:00 96 11/05/21 23:42 99 Laboratory Results Laboratory Results - last 24 hr 11/05/21 11/05/21 11/05/21 11:30 15:45 16:00 WBC RBC Hgb Hct MCV MCH MCHC RDW Std Deviation RDW Coeff of Francis Plt Count MPV Immature Gran % (Auto) Neut % (Auto) Lymph % (Auto) [place] % (Auto) Eos % (Auto) Baso % (Auto) Neut # (Auto) Lymph # (Auto) [place] # (Auto) Eos # (Auto) Baso # (Auto) Immature Gran # (Auto) Sodium Potassium Chloride Carbon Dioxide Anion Gap BUN Creatinine Est Cr Clr Drug Dosing Est GFR ( Amer) Est GFR (Non-Af Amer) BUN/Creatinine Ratio Glucose POC Glucose Calcium Troponin I High Sens Free T4 0.82 Dopamine Epinephrine Norepinephrine Total Catecholamines Urine Osmolality 368 L Nasal Screen MRSA (PCR) Negative Hepatitis C Ab (EIA) Hep C Ab Signal/Cutoff 11/05/21 11/05/21 11/05/21 23:25 23:25 23:38 WBC RBC Hgb Hct MCV MCH MCHC RDW Std Deviation RDW Coeff of Francis Plt Count MPV Immature Gran % (Auto) Neut % (Auto) Lymph % (Auto) [place] % (Auto) Eos % (Auto) Baso % (Auto) Neut # (Auto) Lymph # (Auto) [place] # (Auto) Eos # (Auto) Baso # (Auto) Immature Gran # (Auto) Sodium 135 L Potassium 6.2 H* Chloride 105 Carbon Dioxide 28 Anion Gap 2 L BUN 34 H Creatinine 1.30 H Est Cr Clr Drug Dosing 46.2 Est GFR ( Amer) 51.3 Est GFR (Non-Af Amer) 44.2 BUN/Creatinine Ratio 26.2 H Glucose 234 H POC Glucose 215 H Calcium 9.4 Troponin I High Sens 23.9 H Free T4 Dopamine Epinephrine Norepinephrine Total Catecholamines Urine Osmolality Nasal Screen MRSA (PCR) Hepatitis C Ab (EIA) Pending Hep C Ab Signal/Cutoff Pending 11/06/21 11/06/21 11/06/21 01:47 04:12 05:03 WBC 6.62 RBC 3.42 L Hgb 10.6 L Hct 32.2 L MCV 94.2 MCH 31.0 MCHC 32.9 RDW Std Deviation 43.3 RDW Coeff of Francis 12.6 Plt Count 323 MPV 10.1 Immature Gran % (Auto) 0.2 Neut % (Auto) 47.1 Lymph % (Auto) 39.4 [place] % (Auto) 10.0 Eos % (Auto) 3.0 Baso % (Auto) 0.3 Neut # (Auto) 3.12 Lymph # (Auto) 2.61 [place] # (Auto) 0.66 H Eos # (Auto) 0.20 Baso # (Auto) 0.02 Immature Gran # (Auto) 0.01 Sodium 134 L Potassium 5.7 H Chloride 105 Carbon Dioxide 26 Anion Gap 3 BUN 34 H Creatinine 1.21 H Est Cr Clr Drug Dosing 49.7 Est GFR ( Amer) 55.9 Est GFR (Non-Af Amer) 48.3 BUN/Creatinine Ratio 28.1 H Glucose 192 H POC Glucose 173 H Calcium 9.1 Troponin I High Sens Free T4 Dopamine Epinephrine Norepinephrine Total Catecholamines Urine Osmolality Nasal Screen MRSA (PCR) Hepatitis C Ab (EIA) Hep C Ab Signal/Cutoff 11/06/21 11/06/21 11/06/21 05:03 07:21 10:09 WBC RBC Hgb Hct MCV MCH MCHC RDW Std Deviation RDW Coeff of Francis Plt Count MPV Immature Gran % (Auto) Neut % (Auto) Lymph % (Auto) [place] % (Auto) Eos % (Auto) Baso % (Auto) Neut # (Auto) Lymph # (Auto) [place] # (Auto) Eos # (Auto) Baso # (Auto) Immature Gran # (Auto) Sodium 137 Potassium 5.3 H Chloride 106 Carbon Dioxide 27 Anion Gap 4 BUN 32 H Creatinine 1.18 Est Cr Clr Drug Dosing 46.9 Est GFR ( Amer) 57.6 Est GFR (Non-Af Amer) 49.7 BUN/Creatinine Ratio 27.1 H Glucose 138 H POC Glucose 137 H Calcium 9.8 Troponin I High Sens Free T4 Dopamine Pending Epinephrine Pending Norepinephrine Pending Total Catecholamines Pending Urine Osmolality Nasal Screen MRSA (PCR) Hepatitis C Ab (EIA) Hep C Ab Signal/Cutoff 11/06/21 11/06/21 11:06 16:20 WBC RBC Hgb Hct MCV MCH MCHC RDW Std Deviation RDW Coeff of Francis Plt Count MPV Immature Gran % (Auto) Neut % (Auto) Lymph % (Auto) [place] % (Auto) Eos % (Auto) Baso % (Auto) Neut # (Auto) Lymph # (Auto) [place] # (Auto) Eos # (Auto) Baso # (Auto) Immature Gran # (Auto) Sodium Potassium Chloride Carbon Dioxide Anion Gap BUN Creatinine Est Cr Clr Drug Dosing Est GFR ( Amer) Est GFR (Non-Af Amer) BUN/Creatinine Ratio Glucose POC Glucose 263 H 194 H Calcium Troponin I High Sens Free T4 Dopamine Epinephrine Norepinephrine Total Catecholamines Urine Osmolality Nasal Screen MRSA (PCR) Hepatitis C Ab (EIA) Hep C Ab Signal/Cutoff PG Care Time/CCT Total # of Minutes Spent Total Time Spent with Patient: Total time spent is greater than 50% in coordination of care (as documented) at patient's floor/unit and/or counseling patient: Coding Level of Care Code 71499 Subseq Hosp Care Lvl 2 Diagnoses Junctional bradycardia R00.1 Hyperkalemia E87.5 COPD (chronic obstructive pulmonary disease) J44.9 COPD type: unspecified COPD Diastolic heart failure I50.30 Hypertension, uncontrolled I10 Renal artery stenosis I70.1 Diabetes E11.9 History of tobacco use Z87.891 Chronic alcohol use Z72.89 DVT prophylaxis Z29.9 Hypothyroid E03.9 (1) COPD (chronic obstructive pulmonary disease) COPD type: unspecified COPD Qualified Code(s): J44.9 - Chronic obstructive pulmonary disease, unspecified
[2021-11-06] MEDS ORDERED: DEXTROSE 50% 50 ML SYRINGE IV PRN (11:00)
[2021-11-06] MEDS ORDERED: GLUCOSE 40% GEL 15 GM TUBE PO PRN (11:00)
[2021-11-06] MEDS ORDERED: GLUCOSE 10 TABS/TUBE PO PRN (11:00)
[2021-11-06] MEDS ORDERED: CARBOHYDRATES FOR HYPOGLYCEMIA PO PRN (11:00)
[2021-11-06] MEDS ORDERED: GLUCAGON FOR INJ 1 MG VIAL IM PRN (11:00)
[2021-11-06] MEDS: PATIROMER CALCIUM SORBITEX 8.4 GM PACK PO SCH (11:01)
[2021-11-06] MEDS: INSULIN GLARGINE SOLOSTAR 100 UNITS/ML 3 ML PEN SC SCH ×2 (11:17→22:00)
[2021-11-06] MEDS: INSULIN ASPART PER UNIT SC SCH ×3 (11:35→22:03)
--- NOTE | 2021-11-06 14:14 | Cardiology Consultation ---
Date of Consultation November 06, 2021 Assessment & Plan (1) Junctional bradycardia: (2) Chronic heart failure with preserved ejection fraction: (3) Hyperkalemia: (4) Hypertension, uncontrolled: (5) Renal artery stenosis: ASSESSMENT/PLAN: 1. Junctional bradycardia: Resolved with treatment for hyperkalemia. Likely related to hyperkalemia. No indication for urgent pacemaker placement. Continue telemetry. Apparently had issues with bradycardia during last hospital stay while on beta-ryan but currently heart rate high normal. Recommend further control of potassium level and hypothyroidism. 2. Chronic heart failure with preserved EF: Does not appear to be significantly hypervolemic but does have some lower extremity edema. On diuretic therapy, also for hyperkalemia. Low-sodium diet. Daily weights. Strict I&Os. BNP much improved compared to recent hospital stay. 3. Hyperkalemia: As per primary service and Nephrology. Nephrology consultation pending. 4. Hypertension: Blood pressure remains elevated. Will defer to Nephrology and primary service. Would avoid rate-controlling medications given reported bradycardia on beta-ryan during recent hospital stay. Currently on amlodipine, doxazosin, loop diuretic, and hydralazine. Avoiding BETZAIDA-inhibitor or ARB due to hyperkalemia. 5. Renal artery stenosis: Per Nephrology. 6. Disposition: Continue telemetry. Patient care communicated with Dr. Shabazz of the primary hospitalist service. If further rhythm issues, please contact Cardiology, especially if unrelated hyperkalemia. Will consult EP if needed. Thank you for allowing me to participate in the care of your patient. Please call for any other questions or concerns. Sincerely, Ashish Mccormick M.D. History of Present Illness Reason for Consultation: Junctional bradycardia Requesting Physician: David Shabazz Attending Physician: David Shabazz History of Present Illness Ms. Marquez is a pleasant 61-year-old female with a history significant for HFpEF, renal artery stenosis, hypertension, diabetes, COPD, and hypothyroidism. She has been seen during hospitalization [address] Williamson for cardiology care. She was admitted on 11/05/2021 with hyperkalemia (K 6.5 and was 5.3 on 10/31/21) and bradycardia, presenting with junctional rib with heart rate of 56 beats per minute on presenting ECG with ventricular escape complexes. she received sodium bicarbonate, insulin, and calcium for heart rates in the 40s. Following the sodium bicarbonate, junctional rhythm converted to sinus rhythm with heart rates in the 90s. This occurred on 11/05/2021 at 1:18 p.m.. She states that when she was at her correctional facility, she felt very mild lightheadedness and simply did not feel well. She felt as though she had a low heart rate. She tried to palpate her pulse and noted that it was not normal. S he denies chest pain. She has had significant improvement of her shortness of breath following recent hospitalization. She denies orthopnea, edema, syncope, palpitations, or bleeding. She has not been taking potassium supplements or vitamins. Currently she feels back to baseline. She admits that she is not active since being incarcerated 4 months ago. She met with Nephrology earlier today. She was recently hospitalized here on 10/20/2021 and discharged on 10/31/2021 with principle diagnosis of hypertensive urgency and acute heart failure with preserved EF. During that hospital stay, lisinopril was initiated but discontinued due to hyperkalemia. Doxazosin was initiated and increased for hypertension. Amlodipine was initiated and beta-ryan was discontinued due to bradycardia. She received diuretic therapy. Review of systems: As above. Review of systems otherwise negative/unremarkable. Family history: Mother had diabetes and possibly CHF. Social history: Approximately 40 pack year but quit smoking when incarcerated approximately 4 months ago. Considers herself an alcoholic but no current a lcohol. No drug abuse. . Has 1 son who she talks to occasionally. For grandchildren. Currently incarcerated at [facility]. She was accompanied today by 2 guards. Allergies Allergy/AdvReac Type Severity Reaction Status Date / Time No Known Allergies Allergy Verified 11/05/21 13:18 Home Medications Medication Instructions Recorded Confirmed Type acetaminophen 650 mg 650 mg PO TID PRN 10/20/21 11/05/21 History tablet,extended release (Tylenol Arthritis Pain) albuterol sulfate 2.5 mg INHALATION QID PRN 10/20/21 11/05/21 History insulin NPH isoph U-100 human 100 16 unit SUBCUT HS 10/20/21 11/05/21 History unit/mL subcutaneous suspension (Novolin N NPH U-100 Insulin isophane) insulin NPH isoph U-100 human 100 18 unit SUBCUT QAM 10/20/21 11/05/21 History unit/mL subcutaneous suspension (Novolin N NPH U-100 Insulin isophane) levothyroxine 25 mcg tablet 25 mcg PO DAILY 10/20/21 11/05/21 History amlodipine 5 mg tablet (Norvasc) 5 mg PO BID #60 tab 10/31/21 11/05/21 Rx furosemide 20 mg tablet (Lasix) 40 mg PO Q OTHER DAY #0 tab 10/31/21 11/05/21 Rx doxazosin 1 mg tablet 3 mg PO BID 11/05/21 11/05/21 History lanolin alcohols-mineral 1 applic TOPICAL BID 11/05/21 11/05/21 History oil-w.petrolatum-ceresin topical cream (Eucerin) Patient History Medical History (Updated 11/06/21 @ 14:37 by Camden Mccormick MD) Acute head injury Acute hyponatremia Avulsed toenail Chronic alcohol use Chronic heart failure with preserved ejection fraction COPD (chronic obstructive pulmonary disease) Diabetes Diabetic neuropathy Diastolic heart failure History of tobacco use Hypertension Hypokalemia Hypomagnesemia Hypothyroid Pulmonary nodules/lesions, multiple Renal artery stenosis Tinea pedis Surgical History History of amputation Left foot TMA Family History Father Dementia in his 80s Mother , in her 70s Diabetes CHF (congestive heart failure) Social History Smoking Status: Former smoker Tobacco Type: Cigarettes Age Started Using Tobacco: 16; packs per day: 0.5; Smoking End Date: early 2021; Second Hand Exposure: Yes; Do You Dip or Chew Tobacco: No; Hx Alcohol Use: Yes Alcohol type: hard liquor Alcohol Intake Frequency Comment: daily, at least 3 shots Hx Substance Use: No Preferred Language: Polish Communication Ability: Effective Casing Cooker Required: No Beliefs That Will Affect Care: None marital status: Single Current Living Situation: Other Current Living Situation Comment: alf current occupational status: disabled How many Children do You have: 1 How many Children do You have Comment: son Feels Safe at Home: Yes Assistive Devices: None Physical Exam Physical Exam: Gen.: No acute distress. Alert and oriented. HEENT: Anicteric sclera. Neck: No JVD. Bilateral carotid bruit versus radiation of cardiac murmur. Normal carotid upstrokes bilaterally. Cardiac: PMI was nonpalpable. No ventricular heave. Regular rate and rhythm. Normal S1-S2. 2/6 early peaking systolic ejection murmur. No rubs or gallops. Pulmonary: Decreased breath sounds bilaterally, but otherwise clear to auscultation bilaterally without wheezes, rales, or rhonchi. Abdomen: Soft, nontender, nondistended, with normoactive bowel sounds. No bruits noted. Extremities: 2+ radial pulses bilaterally. 2+ posterior tibialis pulses bilaterally. 1+ bilateral lower extremity edema, left > right. No cyanosis. Psychiatric: Affect appears appropriate. Results & Data ([facility]) Vital Signs (Past 12 Hours) Vital Signs Temp Pulse Pulse Resp BP BP Pulse Ox 11/06/21 13:00 93 H 5 L 160/66 H 11/06/21 12:00 96 H 4 L 187/85 H 97 11/06/21 11:00 94 H 19 178/78 H 97 11/06/21 10:01 98 H 18 180/61 H 98 11/06/21 10:00 96 H 21 11/06/21 09:03 92 H 17 182/79 H 96 11/06/21 09:00 37.2 C 92 H 15 187/83 H 95 11/06/21 08:22 86 17 162/76 H 100 11/06/21 08:00 90 15 191/76 H 97 11/06/21 07:30 87 20 99 11/06/21 07:22 87 12 157/78 H 94 11/06/21 07:00 37.0 C 89 14 149/63 H 93 11/06/21 06:00 87 17 165/76 H 95 11/06/21 05:20 182/80 H 11/06/21 05:00 87 20 177/81 H 99 11/06/21 04:10 36.6 C 74 18 151/64 H 95 11/06/21 04:00 82 18 184/79 H 95 11/06/21 03:00 88 14 97 11/06/21 02:47 76 Laboratory Results Laboratory Results - last 24 hr 11/05/21 11/05/2122 11:30 14:27 14:27 WBC RBC Hgb Hct MCV MCH MCHC RDW Std Deviation RDW Coeff of Francis Plt Count MPV Immature Gran % (Auto) Neut % (Auto) Lymph % (Auto) Schley % (Auto) Eos % (Auto) Baso % (Auto) Neut # (Auto) Lymph # (Auto) Schley # (Auto) Eos # (Auto) Baso # (Auto) Immature Gran # (Auto) ABG pH 7.42 ABG pCO2 39 ABG pO2 86 ABG HCO3 25 H ABG O2 Saturation 96.7 H ABG Base Excess 0.2 Elmer Test Pos Barometric Pressure 733.1 Oxygen Given Room Air Sodium 137 Potassium 5.8 H Chloride 107 Carbon Dioxide 24 Anion Gap 6 BUN 34 H Creatinine 1.03 Est Cr Clr Drug Dosing 58.4 Est GFR ( Amer) 67.9 Est GFR (Non-Af Amer) 58.6 BUN/Creatinine Ratio 33.0 H Glucose 97 POC Glucose Calcium 10.0 Lactate Dehydrogenase Total Creatine Kinase 90 Troponin I High Sens Free T4 0.82 Dopamine Epinephrine Norepinephrine Total Catecholamines Urine Color Urine Appearance Urine pH Ur Specific [place] Urine Protein Urine Glucose (UA) Urine Ketones Urine Blood Urine Nitrite Urine Bilirubin Urine Urobilinogen Ur Leukocyte Esterase Urine WBC (Auto) Urine RBC (Auto) U Hyaline Cast (Auto) U Epithel Cells (Auto) Urine Bacteria (Auto) Urine Osmolality Ur Random Creatinine Ur Random Sodium Ur Random Potassium Ur Random Chloride Ur Random Uric Acid Nasal Screen MRSA (PCR) Urine Opiates Screen Ur Methadone, Qual Urine Barbiturates Ur Phencyclidine (PCP) U Amphetamin/Meth Scrn MDMA (Ecstasy) Screen U Benzodiazepines Scrn Ur Cocaine Metabolite U Marijuana (THC) Screen Hepatitis C Ab (EIA) Hep C Ab Signal/Cutoff 11/05/21 11/05/21 11/05/21 14:27 14:27 15:45 WBC RBC Hgb Hct MCV MCH MCHC RDW Std Deviation RDW Coeff of Francis Plt Count MPV Immature Gran % (Auto) Neut % (Auto) Lymph % (Auto) Schley % (Auto) Eos % (Auto) Baso % (Auto) Neut # (Auto) Lymph # (Auto) Schley # (Auto) Eos # (Auto) Baso # (Auto) Immature Gran # (Auto) ABG pH ABG pCO2 ABG pO2 ABG HCO3 ABG O2 Saturation ABG Base Excess Elmer Test Barometric Pressure Oxygen Given Sodium Potassium Chloride Carbon Dioxide Anion Gap BUN Creatinine Est Cr Clr Drug Dosing Est GFR ( Amer) Est GFR (Non-Af Amer) BUN/Creatinine Ratio Glucose POC Glucose Calcium Lactate Dehydrogenase 191 Total Creatine Kinase Troponin I High Sens 24.4 H Free T4 Dopamine Epinephrine Norepinephrine Total Catecholamines Urine Color Yellow Urine Appearance Clear Urine pH 8.0 H Ur Specific [place] 1.011 Urine Protein 3+ H Urine Glucose (UA) Negative Urine Ketones Negative Urine Blood 1+ H Urine Nitrite Negative Urine Bilirubin Negative Urine Urobilinogen Negative Ur Leukocyte Esterase Trace H Urine WBC (Auto) 5-10 H Urine RBC (Auto) 0-4 U Hyaline Cast (Auto) 1-5 U Epithel Cells (Auto) >30 H Urine Bacteria (Auto) Negative Urine Osmolality Ur Random Creatinine Ur Random Sodium Ur Random Potassium Ur Random Chloride Ur Random Uric Acid Nasal Screen MRSA (PCR) Urine Opiates Screen Ur Methadone, Qual Urine Barbiturates Ur Phencyclidine (PCP) U Amphetamin/Meth Scrn MDMA (Ecstasy) Screen U Benzodiazepines Scrn Ur Cocaine Metabolite U Marijuana (THC) Screen Hepatitis C Ab (EIA) Hep C Ab Signal/Cutoff 11/05/21 11/05/21 11/05/21 15:45 15:45 15:45 WBC RBC Hgb Hct MCV MCH MCHC RDW Std Deviation RDW Coeff of Francis Plt Count MPV Immature Gran % (Auto) Neut % (Auto) Lymph % (Auto) Schley % (Auto) Eos % (Auto) Baso % (Auto) Neut # (Auto) Lymph # (Auto) Schley # (Auto) Eos # (Auto) Baso # (Auto) Immature Gran # (Auto) ABG pH ABG pCO2 ABG pO2 ABG HCO3 ABG O2 Saturation ABG Base Excess Elmer Test Barometric Pressure Oxygen Given Sodium Potassium Chloride Carbon Dioxide Anion Gap BUN Creatinine Est Cr Clr Drug Dosing Est GFR ( Amer) Est GFR (Non-Af Amer) BUN/Creatinine Ratio Glucose POC Glucose Calcium Lactate Dehydrogenase Total Creatine Kinase Troponin I High Sens Free T4 Dopamine Epinephrine Norepinephrine Total Catecholamines Urine Color Urine Appearance Urine pH Ur Specific [place] Urine Protein Urine Glucose (UA) Urine Ketones Urine Blood Urine Nitrite Urine Bilirubin Urine Urobilinogen Ur Leukocyte Esterase Urine WBC (Auto) Urine RBC (Auto) U Hyaline Cast (Auto) U Epithel Cells (Auto) Urine Bacteria (Auto) Urine Osmolality 368 L Ur Random Creatinine 21.5 Ur Random Sodium 111 Ur Random Potassium 28.8 Ur Random Chloride 102 Ur Random Uric Acid Nasal Screen MRSA (PCR) Urine Opiates Screen Neg Ur Methadone, Qual Neg Urine Barbiturates Neg Ur Phencyclidine (PCP) Neg U Amphetamin/Meth Scrn Neg MDMA (Ecstasy) Screen Neg U Benzodiazepines Scrn Neg Ur Cocaine Metabolite Neg U Marijuana (THC) Screen Neg Hepatitis C Ab (EIA) Hep C Ab Signal/Cutoff 11/05/21 11/05/21 11/05/21 15:45 16:00 16:54 WBC RBC Hgb Hct MCV MCH MCHC RDW Std Deviation RDW Coeff of Francis Plt Count MPV Immature Gran % (Auto) Neut % (Auto) Lymph % (Auto) Schley % (Auto) Eos % (Auto) Baso % (Auto) Neut # (Auto) Lymph # (Auto) Schley # (Auto) Eos # (Auto) Baso # (Auto) Immature Gran # (Auto) ABG pH ABG pCO2 ABG pO2 ABG HCO3 ABG O2 Saturation ABG Base Excess Elmer Test Barometric Pressure Oxygen Given Sodium Potassium Chloride Carbon Dioxide Anion Gap BUN Creatinine Est Cr Clr Drug Dosing Est GFR ( Amer) Est GFR (Non-Af Amer) BUN/Creatinine Ratio Glucose POC Glucose 83 Calcium Lactate Dehydrogenase Total Creatine Kinase Troponin I High Sens Free T4 Dopamine Epinephrine Norepinephrine Total Catecholamines Urine Color Urine Appearance Urine pH Ur Specific [place] Urine Protein Urine Glucose (UA) Urine Ketones Urine Blood Urine Nitrite Urine Bilirubin Urine Urobilinogen Ur Leukocyte Esterase Urine WBC (Auto) Urine RBC (Auto) U Hyaline Cast (Auto) U Epithel Cells (Auto) Urine Bacteria (Auto) Urine Osmolality Ur Random Creatinine Ur Random Sodium Ur Random Potassium Ur Random Chloride Ur Random Uric Acid Pending Nasal Screen MRSA (PCR) Negative Urine Opiates Screen Ur Methadone, Qual Urine Barbiturates Ur Phencyclidine (PCP) U Amphetamin/Meth Scrn MDMA (Ecstasy) Screen U Benzodiazepines Scrn Ur Cocaine Metabolite U Marijuana (THC) Screen Hepatitis C Ab (EIA) Hep C Ab Signal/Cutoff 11/05/21 11/05/21 11/05/21 16:55 23:25 23:25 WBC RBC Hgb Hct MCV MCH MCHC RDW Std Deviation RDW Coeff of Francis Plt Count MPV Immature Gran % (Auto) Neut % (Auto) Lymph % (Auto) Schley % (Auto) Eos % (Auto) Baso % (Auto) Neut # (Auto) Lymph # (Auto) Schley # (Auto) Eos # (Auto) Baso # (Auto) Immature Gran # (Auto) ABG pH ABG pCO2 ABG pO2 ABG HCO3 ABG O2 Saturation ABG Base Excess Elmer Test Barometric Pressure Oxygen Given Sodium 135 L Potassium 6.2 H* Chloride 105 Carbon Dioxide 28 Anion Gap 2 L BUN 34 H Creatinine 1.30 H Est Cr Clr Drug Dosing 46.2 Est GFR ( Amer) 51.3 Est GFR (Non-Af Amer) 44.2 BUN/Creatinine Ratio 26.2 H Glucose 234 H POC Glucose 90 Calcium 9.4 Lactate Dehydrogenase Total Creatine Kinase Troponin I High Sens 23.9 H Free T4 Dopamine Epinephrine Norepinephrine Total Catecholamines Urine Color Urine Appearance Urine pH Ur Specific [place] Urine Protein Urine Glucose (UA) Urine Ketones Urine Blood Urine Nitrite Urine Bilirubin Urine Urobilinogen Ur Leukocyte Esterase Urine WBC (Auto) Urine RBC (Auto) U Hyaline Cast (Auto) U Epithel Cells (Auto) Urine Bacteria (Auto) Urine Osmolality Ur Random Creatinine Ur Random Sodium Ur Random Potassium Ur Random Chloride Ur Random Uric Acid Nasal Screen MRSA (PCR) Urine Opiates Screen Ur Methadone, Qual Urine Barbiturates Ur Phencyclidine (PCP) U Amphetamin/Meth Scrn MDMA (Ecstasy) Screen U Benzodiazepines Scrn Ur Cocaine Metabolite U Marijuana (THC) Screen Hepatitis C Ab (EIA) Pending Hep C Ab Signal/Cutoff Pending 11/05/21 11/06/21 11/06/21 23:38 01:47 04:12 WBC RBC Hgb Hct MCV MCH MCHC RDW Std Deviation RDW Coeff of Francis Plt Count MPV Immature Gran % (Auto) Neut % (Auto) Lymph % (Auto) Schley % (Auto) Eos % (Auto) Baso % (Auto) Neut # (Auto) Lymph # (Auto) Schley # (Auto) Eos # (Auto) Baso # (Auto) Immature Gran # (Auto) ABG pH ABG pCO2 ABG pO2 ABG HCO3 ABG O2 Saturation ABG Base Excess Elmer Test Barometric Pressure Oxygen Given Sodium 134 L Potassium 5.7 H Chloride 105 Carbon Dioxide 26 Anion Gap 3 BUN 34 H Creatinine 1.21 H Est Cr Clr Drug Dosing 49.7 Est GFR ( Amer) 55.9 Est GFR (Non-Af Amer) 48.3 BUN/Creatinine Ratio 28.1 H Glucose 192 H POC Glucose 215 H 173 H Calcium 9.1 Lactate Dehydrogenase Total Creatine Kinase Troponin I High Sens Free T4 Dopamine Epinephrine Norepinephrine Total Catecholamines Urine Color Urine Appearance Urine pH Ur Specific [place] Urine Protein Urine Glucose (UA) Urine Ketones Urine Blood Urine Nitrite Urine Bilirubin Urine Urobilinogen Ur Leukocyte Esterase Urine WBC (Auto) Urine RBC (Auto) U Hyaline Cast (Auto) U Epithel Cells (Auto) Urine Bacteria (Auto) Urine Osmolality Ur Random Creatinine Ur Random Sodium Ur Random Potassium Ur Random Chloride Ur Random Uric Acid Nasal Screen MRSA (PCR) Urine Opiates Screen Ur Methadone, Qual Urine Barbiturates Ur Phencyclidine (PCP) U Amphetamin/Meth Scrn MDMA (Ecstasy) Screen U Benzodiazepines Scrn Ur Cocaine Metabolite U Marijuana (THC) Screen Hepatitis C Ab (EIA) Hep C Ab Signal/Cutoff 11/06/21 11/06/21 11/06/21 05:03 05:03 07:21 WBC 6.62 RBC 3.42 L Hgb 10.6 L Hct 32.2 L MCV 94.2 MCH 31.0 MCHC 32.9 RDW Std Deviation 43.3 RDW Coeff of Francis 12.6 Plt Count 323 MPV 10.1 Immature Gran % (Auto) 0.2 Neut % (Auto) 47.1 Lymph % (Auto) 39.4 Schley % (Auto) 10.0 Eos % (Auto) 3.0 Baso % (Auto) 0.3 Neut # (Auto) 3.12 Lymph # (Auto) 2.61 Schley # (Auto) 0.66 H Eos # (Auto) 0.20 Baso # (Auto) 0.02 Immature Gran # (Auto) 0.01 ABG pH ABG pCO2 ABG pO2 ABG HCO3 ABG O2 Saturation ABG Base Excess Elmer Test Barometric Pressure Oxygen Given Sodium 137 Potassium 5.3 H Chloride 106 Carbon Dioxide 27 Anion Gap 4 BUN 32 H Creatinine 1.18 Est Cr Clr Drug Dosing 46.9 Est GFR ( Amer) 57.6 Est GFR (Non-Af Amer) 49.7 BUN/Creatinine Ratio 27.1 H Glucose 138 H POC Glucose 137 H Calcium 9.8 Lactate Dehydrogenase Total Creatine Kinase Troponin I High Sens Free T4 Dopamine Epinephrine Norepinephrine Total Catecholamines Urine Color Urine Appearance Urine pH Ur Specific [place] Urine Protein Urine Glucose (UA) Urine Ketones Urine Blood Urine Nitrite Urine Bilirubin Urine Urobilinogen Ur Leukocyte Esterase Urine WBC (Auto) Urine RBC (Auto) U Hyaline Cast (Auto) U Epithel Cells (Auto) Urine Bacteria (Auto) Urine Osmolality Ur Random Creatinine Ur Random Sodium Ur Random Potassium Ur Random Chloride Ur Random Uric Acid Nasal Screen MRSA (PCR) Urine Opiates Screen Ur Methadone, Qual Urine Barbiturates Ur Phencyclidine (PCP) U Amphetamin/Meth Scrn MDMA (Ecstasy) Screen U Benzodiazepines Scrn Ur Cocaine Metabolite U Marijuana (THC) Screen Hepatitis C Ab (EIA) Hep C Ab Signal/Cutoff 11/06/21 11/06/21 10:09 11:06 WBC RBC Hgb Hct MCV MCH MCHC RDW Std Deviation RDW Coeff of Francis Plt Count MPV Immature Gran % (Auto) Neut % (Auto) Lymph % (Auto) Schley % (Auto) Eos % (Auto) Baso % (Auto) Neut # (Auto) Lymph # (Auto) Schley # (Auto) Eos # (Auto) Baso # (Auto) Immature Gran # (Auto) ABG pH ABG pCO2 ABG pO2 ABG HCO3 ABG O2 Saturation ABG Base Excess Elmer Test Barometric Pressure Oxygen Given Sodium Potassium Chloride Carbon Dioxide Anion Gap BUN Creatinine Est Cr Clr Drug Dosing Est GFR ( Amer) Est GFR (Non-Af Amer) BUN/Creatinine Ratio Glucose POC Glucose 263 H Calcium Lactate Dehydrogenase Total Creatine Kinase Troponin I High Sens Free T4 Dopamine Pending Epinephrine Pending Norepinephrine Pending Total Catecholamines Pending Urine Color Urine Appearance Urine pH Ur Specific [place] Urine Protein Urine Glucose (UA) Urine Ketones Urine Blood Urine Nitrite Urine Bilirubin Urine Urobilinogen Ur Leukocyte Esterase Urine WBC (Auto) Urine RBC (Auto) U Hyaline Cast (Auto) U Epithel Cells (Auto) Urine Bacteria (Auto) Urine Osmolality Ur Random Creatinine Ur Random Sodium Ur Random Potassium Ur Random Chloride Ur Random Uric Acid Nasal Screen MRSA (PCR) Urine Opiates Screen Ur Methadone, Qual Urine Barbiturates Ur Phencyclidine (PCP) U Amphetamin/Meth Scrn MDMA (Ecstasy) Screen U Benzodiazepines Scrn Ur Cocaine Metabolite U Marijuana (THC) Screen Hepatitis C Ab (EIA) Hep C Ab Signal/Cutoff Diagnostic Findings Telemetry personally reviewed: Sinus rhythm. Was junctional rhythm until 11/05/2021 at 1:18 p.m. when converted to sinus. No ventricular arrhythmia. ECGs personally reviewed as noted in HPI. Echo 10/21/2021: Normal LV size, wall motion, systolic function. EF 60-65%. Sclerotic aortic valve bordering on mild stenosis. Mild MR. Chest x-ray 11/05/2021: Improved pulmonary edema when compared to 10/29/2021 per Radiology. Mild bibasilar atelectasis. Trace pleural effusions. Medications Administered Current Inpatient Medications Acetaminophen (Acetaminophen 325 Mg Tab) 650 mg PO TID PRN PRN Reason: Pain Stop: 12/05/21 16:00 Last Admin: 11/05/21 21:45 Dose: 650 mg Documented by: Albuterol (Albuterol 0.083% Nebu Soln 3 Ml Vial) 2.5 mg INH QID PRN; Protocol PRN Reason: Shortness Of Breath Or Wheezing Stop: 12/05/21 16:00 Amlodipine Besylate (Amlodipine Besylate 5 Mg Tab) 5 mg PO BID [facility] Stop: 12/05/21 15:59 Last Admin: 11/06/21 08:32 Dose: 5 mg Documented by: Dextrose (Dextrose 50% 50 Ml Syringe) 25 - 50 ml IV UD PRN; Protocol PRN Reason: Hypoglycemia Protocol Stop: 12/06/21 10:59 Doxazosin Mesylate (Doxazosin Mesylate 1 Mg Tab) 3 mg PO BID@0900,1730 MARYBETH Stop: 12/05/21 17:29 Last Admin: 11/06/21 08:30 Dose: 3 mg Documented by: Furosemide (Furosemide 40 Mg Tab) 40 mg PO QAM MARYBETH Stop: 12/06/21 08:59 Last Admin: 11/06/21 08:30 Dose: 40 mg Documented by: Glucagon (Glucagon For Inj 1 Mg Vial) 1 mg IM UD PRN; Protocol PRN Reason: Hypoglycemia Protocol Stop: 12/06/21 10:59 Glucose (Glucose 40% Gel 15 Gm Tube) 15 - 30 gm PO UD PRN; Protocol PRN Reason: Hypoglycemia Protocol Stop: 12/06/21 10:59 Glucose (Glucose 10 Tabs/Tube) 4 - 8 tabs PO UD PRN; Protocol PRN Reason: Hypoglycemia Protocol Stop: 12/06/21 10:59 Heparin Sodium (Porcine) (Heparin Sod 5,000 Unit/0.5 Ml Vial) 5,000 units SQ Q12H [facility] Stop: 12/05/21 15:59 Hydralazine HCl (Hydralazine Hcl 20 Mg/Ml Vial) 10 mg IV Q6H PRN PRN Reason: SBP>180 Stop: 12/05/21 16:40 Last Admin: 11/06/21 09:13 Dose: 10 mg Documented by: Hydralazine HCl (Hydralazine Tab 50 Mg Tab) 50 mg PO BID [facility] Stop: 12/06/21 09:44 Last Admin: 11/06/21 10:00 Dose: 50 mg Documented by: Insulin Aspart (Insulin Aspart Per Unit) 0 units SC ACHS [facility] Stop: 12/06/21 11:29 Last Admin: 11/06/21 11:35 Dose: 6 units Documented by: Insulin Glargine (Insulin Glargine Solostar 100 Units/Ml 3 Ml Pen) 8 units SC BID [facility] Stop: 12/06/21 11:29 Last Admin: 11/06/21 11:17 Dose: 8 units Documented by: Levothyroxine Sodium (Levothyroxine Sodium 50 Mcg Tablet) 50 mcg PO DAILYBB [facility] Stop: 12/06/21 06:29 Last Admin: 11/06/21 05:19 Dose: 50 mcg Documented by: Miscellaneous (Icu Protocol For Hyperglycemia) 1 ea N/A PRN PRN; Protocol PRN Reason: Hyperglycemia Protocol Stop: 11/07/21 16:00 Miscellaneous (Carbohydrates For Hypoglycemia ) 15 - 30 gm PO UD PRN PRN Reason: Hypoglycemia Treatment Stop: 12/06/21 10:59 Multi-Ingredient Cream (Eucerin Cr 120 Gm Jar) 1 appln TOP BID [facility] Stop: 12/05/21 20:59 Last Admin: 11/06/21 08:31 Dose: 1 appln Documented by: Patiromer (Patiromer Calcium Sorbitex 8.4 Gm Pack) 8.4 gm PO DAILY@1100 [facility] Stop: 12/06/21 10:59 Last Admin: 11/06/21 11:01 Dose: 8.4 gm Documented by: Umeclidinium/Vilanterol (Umeclidinium/Vilanterol 62.5/25mcg 7 Puffs/Inhaler) 1 puffs INH DAILY [facility] Stop: 12/05/21 16:14 Last Admin: 11/06/21 08:32 Dose: 1 puffs Documented by: PG Care Time/CCT Total # of Minutes Spent Total Time Spent with Patient: Total time spent is greater than 50% in coordination of care (as documented) at patient's floor/unit and/or counseling patient: Coding Level of Care Code 27874 Initial Inpt Care Lvl 3 Diagnoses Junctional bradycardia R00.1 Chronic heart failure with preserved ejection fraction I50.32 Hyperkalemia E87.5 Hypertension, uncontrolled I10 Renal artery stenosis I70.1
--- NOTE | 2021-11-06 17:28 | Nephrology Consultation ---
Date of Consultation November 06, 2021 Assessment & Plan (1) Acute hyperkalemia: Improving with treatment. Remains on daily Patiromer. Low potassium diet. Etiology unclear. Review of the medical record indicates history of issues related to hyperkalemia going back at least a couple of years. IDDM likely contributes to this. Underlying DKD certainly complicating. By history, she has not had any notable metabolic acidosis. Urine pH 8 but following IV HCO3. ABG also obtained following IV HCO3 yesterday. I could not exclude underlying aldosterone resistance or pseudohypoaldosteronism at this time. 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 (2) Hypertension, uncontrolled: Renal imaging reviewed and vascular surgery consultation from prior admission. No emergent indication for intervention. However, the number of antihypertensives that she has not been able to tolerate is concerning. BP uncontrolled with Doxazosin and amlodipine. Furosemide is being provided to help with fluid balance on a QOD or as needed basis. Consider daily thiazide diuretic. (3) CKD (chronic kidney disease): Normal serum creatinine with A3 proteinuria. Nephrotic range proteinuria quantified at 6.6 g/g previously. Urine microscopy negative for RBC's. Serum albumin normal. Clinical presentation consistent with DKD vs/ sFSGS or idiopathic nodular GS. Repeat metabolic profile tomorrow AM. (4) Renal artery stenosis: No emergent indication for intervention. Kidney filtration preserved. BP improving with medical management. (5) Chronic heart failure with preserved ejection fraction: Cardiology consultation reviewed. Volume status improving s/p furosemide. Document I/O's. (6) Symptomatic bradycardia: Beta-blockers avoided. History of Present Illness Reason for Consultation: Hyperkalemia Requesting Physician: David Shabazz Attending Physician: David Shabazz History of Present Illness Sumaya Marquez was seen and evaluated in the ICU earlier today. She was resting comfortably in bed without complaints at that time. BP notably accelerated but Sumaya denied any symptoms. She presented to the ER yesterday with notable bradycardia. She developed a feeling of lightheadedness and mild nausea while at rest. She became concerned due to a very low pulse rate. She has not had similar episodes in the past. Evaluation in the ER revealed a junctional bradycardia and hyperkalemia. Heart rate reportedly converted to sinus rhythm following IV bicarbonate administration. She denied any chest pain or palpitations. She was recently admitted at the end of September with fluid retention and accelerated hypertension. Sumaya was discharged to [facility] on October 31. During the admission, BP was controlled with Doxazosin, amlodipine, and every other day furosemide. She was not able to tolerate beta-blockers due to a low heart rate. She was not able to tolerate lisinopril due to elevated serum potassium. Sumaya has a history of hyperkalemia in the past. She has been unable to tolerate ACEi or ARBS due to hyperkalemia. Lisinopril was initially discontinued during a prior admission to [facility] in 2019. An attempt at restarting the medication was made during her recent hospitalization. Medical history is notable for a history of HFpEF, right sided renal artery stenosis, longstanding hypertension treated with medications for >10 years, history of poorly controlled adult onset DM requiring insulin, notable history of alcohol abuse and significant smoking history, COPD, hypothyroidism, and treatment of osteomyelitis of the foot in the past. She does not have a known history of coronary artery disease. She denies having symptoms associated with accelerated blood pressure. She does not have a history of flash pulmonary edema. Serum creatinine 1.2 mg/dL. Proteinuria quantified at 6.6 g/g during her recent hospitalization. Serum albumin 3.4. She does not take any potassium supplements. She has a son. There is no notable history of kidney disease, hypertension or hyperkalemia to report. Allergies Allergy/AdvReac Type Severity Reaction Status Date / Time No Known Allergies Allergy Verified 11/05/21 13:18 Home Medications Medication Instructions Recorded Confirmed Type acetaminophen 650 mg 650 mg PO TID PRN 10/20/21 11/05/21 History tablet,extended release (Tylenol Arthritis Pain) albuterol sulfate 2.5 mg INHALATION QID PRN 10/20/21 11/05/21 History insulin NPH isoph U-100 human 100 16 unit SUBCUT HS 10/20/21 11/05/21 History unit/mL subcutaneous suspension (Novolin N NPH U-100 Insulin isophane) insulin NPH isoph U-100 human 100 18 unit SUBCUT QAM 10/20/21 11/05/21 History unit/mL subcutaneous suspension (Novolin N NPH U-100 Insulin isophane) levothyroxine 25 mcg tablet 25 mcg PO DAILY 10/20/21 11/05/21 History amlodipine 5 mg tablet (Norvasc) 5 mg PO BID #60 tab 10/31/21 11/05/21 Rx furosemide 20 mg tablet (Lasix) 40 mg PO Q OTHER DAY #0 tab 10/31/21 11/05/21 Rx doxazosin 1 mg tablet 3 mg PO BID 11/05/21 11/05/21 History lanolin alcohols-mineral 1 applic TOPICAL BID 11/05/21 11/05/21 History oil-w.petrolatum-ceresin topical cream (Eucerin) Patient History Medical History Acute head injury Acute hyponatremia Avulsed toenail Chronic alcohol use Chronic heart failure with preserved ejection fraction COPD (chronic obstructive pulmonary disease) Diabetes Diabetic neuropathy Diastolic heart failure History of tobacco use Hypertension Hypokalemia Hypomagnesemia Hypothyroid Pulmonary nodules/lesions, multiple Renal artery stenosis Tinea pedis Surgical History History of amputation Left foot TMA Family History Father Dementia in his 80s Mother , in her 70s Diabetes CHF (congestive heart failure) Social History Smoking Status: Former smoker Tobacco Type: Cigarettes Age Started Using Tobacco: 16; packs per day: 0.5; Smoking End Date: early 2021; Second Hand Exposure: Yes; Do You Dip or Chew Tobacco: No; Hx Alcohol Use: Yes Alcohol type: hard liquor Alcohol Intake Frequency Comment: daily, at least 3 shots Hx Substance Use: No Preferred Language: [place]alander Communication Ability: Effective Heel Emery Buffer Required: No Beliefs That Will Affect Care: None marital status: Single Current Living Situation: Other Current Living Situation Comment: retirement current occupational status: disabled How many Children do You have: 1 How many Children do You have Comment: son Feels Safe at Home: Yes Assistive Devices: None Review of Systems Constitutional: no weight loss, no weight gain and no problem reported Eyes: no problem reported Ear, Nose, Mouth, Throat: no problem reported Respiratory: no problem reported Cardiovascular: + lightheadedness and + edema Gastrointestinal: no problem reported Musculoskeletal: no problem reported Integumentary: no problem reported Neurologic: no problem reported Psychiatric: no problem reported Endocrine: no problem reported Hematologic / Lymphatic: no problem reported Physical Exam Constitutional: well developed; no acute distress Eyes: no scleral abnormality and no corneal abnormality ENMT: Mouth: no oral mucosal abnormality and oral mucous membranes not dry Neck: normal visual inspection and trachea midline Thyroid: normal thyroid Respiratory: normal respiratory effort Auscultation: lungs clear to auscultation bilaterally Cardiovascular: Rate/Rhythm: regular rate Heart Sounds: normal S1 and normal S2 Extremities: normal capillary refill and + edema Musculoskeletal: Extremities: no cyanosis and no clubbing Skin: normal turgor; no lesions Neurologic: Motor/Sensory: no tremor and no asterixis Psychiatric: Orientation: alert and oriented x 3 Results & Data ([facility]) Vital Signs (Past 12 Hours) Vital Signs Temp Pulse Pulse Resp BP BP Pulse Ox 11/06/21 16:00 93 H 14 179/72 H 94 11/06/21 15:00 90 18 177/77 H 11/06/21 14:00 94 H 18 183/78 H 96 11/06/21 13:00 93 H 5 L 160/66 H 11/06/21 12:00 96 H 4 L 187/85 H 97 11/06/21 11:00 94 H 19 178/78 H 97 11/06/21 10:01 98 H 18 180/61 H 98 11/06/21 10:00 96 H 21 11/06/21 09:03 92 H 17 182/79 H 96 11/06/21 09:00 37.2 C 92 H 15 187/83 H 95 11/06/21 08:22 86 17 162/76 H 100 11/06/21 08:00 90 15 191/76 H 97 11/06/21 07:30 87 20 99 11/06/21 07:22 87 12 157/78 H 94 11/06/21 07:00 37.0 C 89 14 149/63 H 93 11/06/21 06:00 87 17 165/76 H 95 Laboratory Results Laboratory Results - last 24 hr 11/05/21 11/05/21 11/05/21 11:30 15:45 16:00 WBC RBC Hgb Hct MCV MCH MCHC RDW Std Deviation RDW Coeff of Francis Plt Count MPV Immature Gran % (Auto) Neut % (Auto) Lymph % (Auto) [place] % (Auto) Eos % (Auto) Baso % (Auto) Neut # (Auto) Lymph # (Auto) [place] # (Auto) Eos # (Auto) Baso # (Auto) Immature Gran # (Auto) Sodium Potassium Chloride Carbon Dioxide Anion Gap BUN Creatinine Est Cr Clr Drug Dosing Est GFR ( Amer) Est GFR (Non-Af Amer) BUN/Creatinine Ratio Glucose POC Glucose Calcium Troponin I High Sens Free T4 0.82 Dopamine Epinephrine Norepinephrine Total Catecholamines Urine Osmolality 368 L Nasal Screen MRSA (PCR) Negative Hepatitis C Ab (EIA) Hep C Ab Signal/Cutoff 11/05/21 11/05/21 11/05/21 23:25 23:25 23:38 WBC RBC Hgb Hct MCV MCH MCHC RDW Std Deviation RDW Coeff of Francis Plt Count MPV Immature Gran % (Auto) Neut % (Auto) Lymph % (Auto) [place] % (Auto) Eos % (Auto) Baso % (Auto) Neut # (Auto) Lymph # (Auto) [place] # (Auto) Eos # (Auto) Baso # (Auto) Immature Gran # (Auto) Sodium 135 L Potassium 6.2 H* Chloride 105 Carbon Dioxide 28 Anion Gap 2 L BUN 34 H Creatinine 1.30 H Est Cr Clr Drug Dosing 46.2 Est GFR ( Amer) 51.3 Est GFR (Non-Af Amer) 44.2 BUN/Creatinine Ratio 26.2 H Glucose 234 H POC Glucose 215 H Calcium 9.4 Troponin I High Sens 23.9 H Free T4 Dopamine Epinephrine Norepinephrine Total Catecholamines Urine Osmolality Nasal Screen MRSA (PCR) Hepatitis C Ab (EIA) Pending Hep C Ab Signal/Cutoff Pending 11/06/21 11/06/21 11/06/21 01:47 04:12 05:03 WBC 6.62 RBC 3.42 L Hgb 10.6 L Hct 32.2 L MCV 94.2 MCH 31.0 MCHC 32.9 RDW Std Deviation 43.3 RDW Coeff of Francis 12.6 Plt Count 323 MPV 10.1 Immature Gran % (Auto) 0.2 Neut % (Auto) 47.1 Lymph % (Auto) 39.4 [place] % (Auto) 10.0 Eos % (Auto) 3.0 Baso % (Auto) 0.3 Neut # (Auto) 3.12 Lymph # (Auto) 2.61 [place] # (Auto) 0.66 H Eos # (Auto) 0.20 Baso # (Auto) 0.02 Immature Gran # (Auto) 0.01 Sodium 134 L Potassium 5.7 H Chloride 105 Carbon Dioxide 26 Anion Gap 3 BUN 34 H Creatinine 1.21 H Est Cr Clr Drug Dosing 49.7 Est GFR ( Amer) 55.9 Est GFR (Non-Af Amer) 48.3 BUN/Creatinine Ratio 28.1 H Glucose 192 H POC Glucose 173 H Calcium 9.1 Troponin I High Sens Free T4 Dopamine Epinephrine Norepinephrine Total Catecholamines Urine Osmolality Nasal Screen MRSA (PCR) Hepatitis C Ab (EIA) Hep C Ab Signal/Cutoff 11/06/21 11/06/21 11/06/21 05:03 07:21 10:09 WBC RBC Hgb Hct MCV MCH MCHC RDW Std Deviation RDW Coeff of Francis Plt Count MPV Immature Gran % (Auto) Neut % (Auto) Lymph % (Auto) [place] % (Auto) Eos % (Auto) Baso % (Auto) Neut # (Auto) Lymph # (Auto) [place] # (Auto) Eos # (Auto) Baso # (Auto) Immature Gran # (Auto) Sodium 137 Potassium 5.3 H Chloride 106 Carbon Dioxide 27 Anion Gap 4 BUN 32 H Creatinine 1.18 Est Cr Clr Drug Dosing 46.9 Est GFR ( Amer) 57.6 Est GFR (Non-Af Amer) 49.7 BUN/Creatinine Ratio 27.1 H Glucose 138 H POC Glucose 137 H Calcium 9.8 Troponin I High Sens Free T4 Dopamine Pending Epinephrine Pending Norepinephrine Pending Total Catecholamines Pending Urine Osmolality Nasal Screen MRSA (PCR) Hepatitis C Ab (EIA) Hep C Ab Signal/Cutoff 11/06/21 11/06/21 11:06 16:20 WBC RBC Hgb Hct MCV MCH MCHC RDW Std Deviation RDW Coeff of Francis Plt Count MPV Immature Gran % (Auto) Neut % (Auto) Lymph % (Auto) [place] % (Auto) Eos % (Auto) Baso % (Auto) Neut # (Auto) Lymph # (Auto) [place] # (Auto) Eos # (Auto) Baso # (Auto) Immature Gran # (Auto) Sodium Potassium Chloride Carbon Dioxide Anion Gap BUN Creatinine Est Cr Clr Drug Dosing Est GFR ( Amer) Est GFR (Non-Af Amer) BUN/Creatinine Ratio Glucose POC Glucose 263 H 194 H Calcium Troponin I High Sens Free T4 Dopamine Epinephrine Norepinephrine Total Catecholamines Urine Osmolality Nasal Screen MRSA (PCR) Hepatitis C Ab (EIA) Hep C Ab Signal/Cutoff Diagnostic Findings CTA abd/plv: 1. Large calcified atherosclerotic plaque at the origin of the right main renal artery with approximately 60-70% stenosis present at this site. 2. Atherosclerotic calcification throughout the abdominal aorta with no evidence for aneurysm. 3. Atherosclerotic plaque with stenosis at the origin of the iliac arteries bilaterally, right greater than left. PG Care Time/CCT Total # of Minutes Spent Total Time Spent with Patient: Total time spent is greater than 50% in coordination of care (as documented) at patient's floor/unit and/or counseling patient: Coding Level of Care Code 42768 Inpt Consult Level 5 Diagnoses Chronic heart failure with preserved ejection fraction I50.32 Acute hyperkalemia E87.5 Symptomatic bradycardia R00.1 Hypertension, uncontrolled I10 Renal artery stenosis I70.1 CKD (chronic kidney disease) N18.9
[2021-11-06 20:31] LABS: Calcium 9.3 mg/dl (8.5-10.1); Creatinine Clr Calc Pharmacy 48.1 ml/min; Est GFR (African American) 59.5 ml/min; Est GFR (Non-African American) 51.3 ml/min; Magnesium 1.5 mg/dl (1.7-2.4); Potassium 5.3 mmol/L (3.5-5.1)
[2021-11-07] MEDS: LEVOTHYROXINE SODIUM 50 MCG TABLET PO SCH (06:14)
[2021-11-07 06:17] LABS: BUN Creatinine Ratio 25.5 (10-20); Calcium 9.1 mg/dl (8.5-10.1); Creatinine Clr Calc Pharmacy 48.5 ml/min; Est GFR (African American) 62.8 ml/min; Est GFR (Non-African American) 54.1 ml/min; Potassium 5.1 mmol/L (3.5-5.1)
[2021-11-07] MEDS: INSULIN ASPART PER UNIT SC SCH ×4 (08:42→20:54)
[2021-11-07] MEDS: MAGNESIUM SULFATE / D5W 1 GM/100 ML BAG IV SCH ×2 (08:42→10:23)
[2021-11-07] MEDS: amLODIPine BESYLATE 5 MG TAB PO SCH ×2 (08:43→20:57)
[2021-11-07] MEDS: DOXAZOSIN MESYLATE 1 MG TAB PO SCH ×2 (08:43→18:25)
[2021-11-07] MEDS: EUCERIN CR 120 GM JAR TOP SCH ×2 (08:44→20:58)
[2021-11-07] MEDS: FUROSEMIDE 40 MG TAB PO SCH (08:45)
[2021-11-07] MEDS: HEPARIN SOD 5,000 UNIT/0.5 ML VIAL SQ SCH ×2 (08:45→20:57)
[2021-11-07] MEDS: UMECLIDINIUM/VILANTEROL 62.5/25MCG 7 PUFFS/INHALER INH SCH (08:46)
[2021-11-07] MEDS: INSULIN GLARGINE SOLOSTAR 100 UNITS/ML 3 ML PEN SC SCH ×2 (08:46→20:54)
[2021-11-07] MEDS: hydrALAZINE TAB 50 MG TAB PO SCH ×2 (08:46→20:56)
--- NOTE | 2021-11-07 09:30 | Nephrology Progress Note ---
Date of Service November 07, 2021 Assessment & Plan (1) Acute hyperkalemia: Plan: Improving with treatment. Hold additional Patiromer. Low potassium diet. Remains on furosemide 20 mg daily. I would encourage that she remain on either a daily loop or thiazide diuretic. I suspect DKD is certainly contributing. Findings are certainly not classic for RTA IV. I would consider possible pseudohypoaldosteronism type 2 (Federico Syndrome). If this is the case, Sumaya should do well with a daily thiazide diuretic. Potential genetic testing to help confirm the diagnosis could be considered as an outpatient. At this time, she is responding to current therapy and BP had been reasonable yesterday. Sumaya remains on doxazosin, amlodipine, and furosemide. Once BP improved, I suspect she would be stable for discharge with close outpatient follow up. (2) Hypertension, uncontrolled: Plan: Tolerating current therapy well. Euvolemic. Low potassium/low sodium diet. (3) CKD (chronic kidney disease): Plan: Normal serum creatinine with A3 proteinuria. Nephrotic range proteinuria quantified at 6.6 g/g previously. Urine microscopy negative for RBC's. Serum albumin normal. Clinical presentation consistent with DKD vs/ sFSGS or idiopathic nodular GS. Outpatient nephrology follow up post discharge is encouraged. Unfortunately, due to history of hyperkalemia, Sumaya has not been able to tolerate BETZAIDA/ARB's. Future consideration may be to add a daily potassium binder with loop or thiazide diuretic and once potassium stable reintroduce BETZAIDA/ARB. (4) Renal artery stenosis: Plan: No emergent indication for intervention. Kidney filtration preserved. BP improving with medical management. (5) Chronic heart failure with preserved ejection fraction: Plan: Cardiology consultation reviewed. (6) Symptomatic bradycardia: Plan: Beta-blockers avoided. Admission and Anticipated Discharge Date Admission Date: November 05, 2021 Subjective No acute events overnight. Remains in sinus rhythm. BP elevated this AM but improved yesterday afternoon. Notable urine output following furosemide. No bowel movement. Denies feeling constipated. Sumaya reported that she did have a slight headache in the back of her head for a couple of days which has now cleared. Review of Systems Review of Systems: All systems reviewed & are unremarkable except as noted in HPI & below Physical Exam Constitutional: well developed; no acute distress Eyes: no scleral abnormality and no corneal abnormality ENMT: Mouth: no oral mucosal abnormality and oral mucous membranes not dry Neck: normal visual inspection and trachea midline Thyroid: normal thyroid Respiratory: normal respiratory effort Auscultation: lungs clear to auscultation bilaterally Cardiovascular: Rate/Rhythm: regular rate Heart Sounds: normal S1 and normal S2 Extremities: normal capillary refill and + edema Musculoskeletal: Extremities: no cyanosis and no clubbing Skin: normal turgor; no lesions Neurologic: Motor/Sensory: no tremor and no asterixis Psychiatric: Orientation: alert and oriented x 3 Results & Data ([facility]) Vital Signs (Past 12 Hours) Vital Signs Temp Pulse Pulse Resp BP BP Pulse Ox 11/07/21 09:20 36.5 C 95 H 19 170/72 H 98 11/07/21 03:58 36.6 C 92 H 16 157/73 H 93 11/07/21 00:00 82 11/06/21 23:16 36.6 C 85 16 172/76 H 97 Laboratory Results Laboratory Results - last 24 hr 11/05/21 11/06/21 11/06/21 23:25 10:09 11:06 Sodium Potassium Chloride Carbon Dioxide Anion Gap BUN Creatinine Est Cr Clr Drug Dosing Est GFR ( Amer) Est GFR (Non-Af Amer) BUN/Creatinine Ratio Glucose POC Glucose 263 H Calcium Magnesium Dopamine Pending Epinephrine Pending Norepinephrine Pending Total Catecholamines Pending Hepatitis C Ab (EIA) NON-REACTIVE Hep C Ab Signal/Cutoff 0.04 11/06/21 11/06/21 11/06/21 16:20 20:02 21:54 Sodium 132 L Potassium 5.3 H Chloride 103 Carbon Dioxide 24 Anion Gap 5 BUN 31 H Creatinine 1.15 Est Cr Clr Drug Dosing 48.1 Est GFR ( Amer) 59.5 Est GFR (Non-Af Amer) 51.3 BUN/Creatinine Ratio 27.0 H Glucose 214 H POC Glucose 194 H 193 H Calcium 9.3 Magnesium 1.5 L Dopamine Epinephrine Norepinephrine Total Catecholamines Hepatitis C Ab (EIA) Hep C Ab Signal/Cutoff 11/07/21 11/07/21 11/07/21 04:01 05:16 07:29 Sodium 136 Potassium 5.1 Chloride 106 Carbon Dioxide 24 Anion Gap 6 BUN 28 H Creatinine 1.10 Est Cr Clr Drug Dosing 48.5 Est GFR ( Amer) 62.8 Est GFR (Non-Af Amer) 54.1 BUN/Creatinine Ratio 25.5 H Glucose 134 H POC Glucose 130 H 143 H Calcium 9.1 Magnesium Dopamine Epinephrine Norepinephrine Total Catecholamines Hepatitis C Ab (EIA) Hep C Ab Signal/Cutoff PG Care Time/CCT Total # of Minutes Spent Total Time Spent with Patient: Total time spent is greater than 50% in coordination of care (as documented) at patient's floor/unit and/or counseling patient: Coding Level of Care Code 34748 Subseq Hosp Care Lvl 3 Diagnoses Acute hyperkalemia E87.5 Hypertension, uncontrolled I10 CKD (chronic kidney disease) N18.9 Renal artery stenosis I70.1 Chronic heart failure with preserved ejection fraction I50.32 Symptomatic bradycardia R00.1
--- NOTE | 2021-11-07 10:27 | Cardiology Progress Note ---
Date of Service November 07, 2021 Assessment & Plan (1) Hypertension, uncontrolled: (2) Hyperkalemia: (3) Junctional bradycardia: (4) Chronic heart failure with preserved ejection fraction: (5) Renal artery stenosis: Plan: Etiology of hyperkalemia uncertain, but it is possible that she developed bradycardia leading to hyperkalemia. [facility] personnel note [facility] which was listed as "hold for heart rate less than 60" implying she may have gotten a negative chronotropic. They are double checking to see which medications she received, since upon recent hospital discharge she was not on any negative chronotropic medications (she had been initiated on amlodipine and doxazosin and her furosemide dose was adjusted). Alternatively, her reduced diuretic regimen may have allowed whatever hyperkalemic tendencies she has to be unmasked. Either way, currently her volume status is favorable, her rhythm is normal and at appropriate rate, and her hyperkalemia has resolved. Her blood pressure does remain elevated, but less so than at the time of her prior hospitalization. Could further increase doxazosin. She will need close observation after hospital discharge to ensure she does not develop recurrent bradycardia and/or hyperkalemia. Admission and Anticipated Discharge Date Admission Date: November 05, 2021 Subjective Patient is doing well, no complaints. Denies chest pain, dyspnea, subjective palpitations, or other complaint. Telemetry shows rhythm is sinus in the 70-90 bpm range without significant ectopy. Physical Exam Physical Exam: No distress. BP variable between normotensive and moderately hypertensive. Pulse 95 bpm and regular. Skin: no ecchymoses or generalized lesions. HEENT: unremarkable. Neck: Jugular venous pulse at clavicle at 90 degrees, bilateral transmitted murmur radiating to the carotids. Lungs: Moderately decreased breath sounds but generally clear. No wheezing or obvious crackles. Cardiac: regular rhythm, 3/6 crescendo decrescendo systolic ejection murmur rating to the carotids, intact aortic closure sound, 2/6 apical holosystolic murmur rating to the axilla. No diastolic murmur. Abdomen: benign. Extremities: Trace-1+ pretibial edema, pulses intact. Neurologic: normal affect and conversation, nonfocal. Results & Data ([facility]) Vital Signs (Past 12 Hours) Vital Signs Temp Pulse Pulse Resp BP BP Pulse Ox 11/07/21 09:20 97.7 F 95 H 19 170/72 H 98 11/07/21 03:58 97.9 F 92 H 16 157/73 H 93 11/07/21 00:00 82 11/06/21 23:16 97.9 F 85 16 172/76 H 97 PG Care Time/CCT Total # of Minutes Spent Total Time Spent with Patient: Total time spent is greater than 50% in coordination of care (as documented) at patient's floor/unit and/or counseling patient: Coding Level of Care Code 49667 Subseq Hosp Care Lvl 3 Diagnoses Junctional bradycardia R00.1 Chronic heart failure with preserved ejection fraction I50.32 Hyperkalemia E87.5 Hypertension, uncontrolled I10 Renal artery stenosis I70.1
[2021-11-07] MEDS: PATIROMER CALCIUM SORBITEX 8.4 GM PACK PO SCH (14:20)
[2021-11-07] MEDS ORDERED: hydroCHLOROthiazide 25 MG TAB PO STA (17:02)
[2021-11-07] MEDS: ACETAMINOPHEN 325 MG TAB PO PRN (20:58)
--- NOTE | 2021-11-07 21:13 | Hospitalist Progress Note ---
Date of Service November 07, 2021 Assessment & Plan (1) Junctional bradycardia: Plan: 2nd to #2 below. resolved s/p Rx of hyperkalemia. has remained in NSR since initial conversion back to sinus while awaiting admission in the ER. Of note - during her prior hospitalization last week her beta ryan was stopped due to sinus bradycardia. There is mention in the record about brief episodes of asymptomatic junctional bradycardia during the last hospital stay as well. She continues to not be on any AV richardson agents. I called the [facility], spoke to the nurse in the [facility]. She confirmed that Ms Marquez did NOT receive ANY beta ryan [facility] the [facility]. Appreciate cardiology consultation; no plans for any pacemaker, etc. Simply observe on telemetry. (2) Hyperkalemia: Plan: resolved s/p usual Rx including K-binding agents (veltassa), NaBicarbonate, Calcium, etc. etiology uncertain. During the previous visit her K level was top-normal as well. She is not on BETZAIDA or ARB therapy, potassium supplementation or any other medication that would cause high K levels. Renal function is intact. cortisol level not suggestive of adrenal insufficiency. ABG without acidosis. CPK wnl. hypoaldosteronism? other kidney defect leading to lack of potassium excretion at the level of the kidney? other? nephrology consult appreciated. patient could have pseudohypoaldosteronism. nephrology recommending thiazide diuretic in iqra of loop diuretic. stop lasix. start HCTZ 25mg now. cont low K diet. repeat BMP am. (3) COPD (chronic obstructive pulmonary disease): Plan: no exacerbation at this time cont outpatient inhalers (4) Diastolic heart failure: Plan: remains compensated at this time see above re: diuretic therapy will use HCTZ in iqra of lasix starting today (5) Hypertension, uncontrolled: Plan: during the previous visit she had HTN emergency multiple med adjustments were made including stoppage of her lisinopril (due to top-normal K level), stopping of her beta ryan due to bradycardia, etc. renal artery stenosis was discovered on CTA - she has such on the right with stenosis of >50%; uncertain if contributing to refractory HTN, however cont amlodipine, doxazosin cont hydralazine adding HCTZ 25mg daily today in iqra of lasix work-up for pheochromocytoma sent and pending appreciate recs from cardiology and nephrology (6) Renal artery stenosis: Plan: see above (7) Diabetes: Plan: uncontrolled adjust novolog again cont lantus (8) History of tobacco use: (9) Chronic alcohol use: Plan: no signs of etoh withdrawal (10) DVT prophylaxis: Plan: heparin 5000 TID (11) Hypothyroid: Plan: TSH continues to remain high; level of 19 on day of admission there is mention in the previous d/c summary that she had not been compliant with her levothyroxine due to side effects the levothyroxine was restarted at 25mcg daily during prior stay, then increased to 50mcg on day of admission here she is refusing the levothyroixine will change to [place] Thyroid in am (30mg) recheck TSH in 6 weeks as outpatient Plan: observe overnight BMP in am once BPs are controlled and we have ~2 days of potassium stability can release [facility] to [facility] Admission and Anticipated Discharge Date Admission Date: November 05, 2021 Subjective no issues overnight tele - no junctional rhythms or other bradycardia NSR only feels good eating well no cp, dyspnea, GARCIA, dizziness, headache still constipated Review of Systems Review of Systems: gen - no fatigue, eating well cv - no orthopnea pulm - no cough GI - no abd pain but again is constipated; no nausea/emesis Physical Exam Physical Exam: gen - a/o x3, NAD, looks good mouth - MMM neck - no JVD heart - RRR, s1 s2, no murmur lungs - CTA b/l abd - soft NT ND BS+ ext - no edema, pulses 2+ b/l, left foot TMA Results & Data Results & Data ([facility]) Vital Signs (Past 12 Hours) Vital Signs Temp Pulse Pulse Resp BP BP Pulse Ox 11/07/21 19:27 36.8 C 91 H 16 177/67 H 97 11/07/21 16:00 93 H 11/07/21 15:00 36.6 C 92 H 19 175/62 H 99 11/07/21 09:20 36.5 C 95 H 19 170/72 H 98 Laboratory Results Laboratory Results - last 24 hr 11/05/21 11/06/21 11/07/21 23:25 21:54 04:01 Sodium Potassium Chloride Carbon Dioxide Anion Gap BUN Creatinine Est Cr Clr Drug Dosing Est GFR ( Amer) Est GFR (Non-Af Amer) BUN/Creatinine Ratio Glucose POC Glucose 193 H 130 H Calcium Hepatitis C Ab (EIA) NON-REACTIVE Hep C Ab Signal/Cutoff 0.04 11/07/21 11/07/21 11/07/21 05:16 07:29 11:31 Sodium 136 Potassium 5.1 Chloride 106 Carbon Dioxide 24 Anion Gap 6 BUN 28 H Creatinine 1.10 Est Cr Clr Drug Dosing 48.5 Est GFR ( Amer) 62.8 Est GFR (Non-Af Amer) 54.1 BUN/Creatinine Ratio 25.5 H Glucose 134 H POC Glucose 143 H 189 H Calcium 9.1 Hepatitis C Ab (EIA) Hep C Ab Signal/Cutoff 11/07/21 11/07/21 16:28 20:34 Sodium Potassium Chloride Carbon Dioxide Anion Gap BUN Creatinine Est Cr Clr Drug Dosing Est GFR ( Amer) Est GFR (Non-Af Amer) BUN/Creatinine Ratio Glucose POC Glucose 222 H 191 H Calcium Hepatitis C Ab (EIA) Hep C Ab Signal/Cutoff PG Care Time/CCT Total # of Minutes Spent Total Time Spent with Patient: Total time spent is greater than 50% in coordination of care (as documented) at patient's floor/unit and/or counseling patient: Coding Level of Care Code 43083 Subseq Hosp Care Lvl 3 Diagnoses Junctional bradycardia R00.1 Hyperkalemia E87.5 COPD (chronic obstructive pulmonary disease) J44.9 COPD type: unspecified COPD Diastolic heart failure I50.30 Hypertension, uncontrolled I10 Renal artery stenosis I70.1 Diabetes E11.9 History of tobacco use Z87.891 Chronic alcohol use Z72.89 DVT prophylaxis Z29.9 Hypothyroid E03.9 (1) COPD (chronic obstructive pulmonary disease) COPD type: unspecified COPD Qualified Code(s): J44.9 - Chronic obstructive pulmonary disease, unspecified
[2021-11-07] MEDS ORDERED: INSULIN ASPART PER UNIT SC ONE (23:35)
[2021-11-08] MEDS: LEVOTHYROXINE SODIUM 50 MCG TABLET PO SCH ×2 (05:54→05:57)
--- NOTE | 2021-11-08 06:05 | Communication Note ---
Date of Service: November 08, 2021 Patient refusing levothyroxine. States she gets headaches and was prescribed a [facility] medication [facility].
[2021-11-08] MEDS: DOXAZOSIN MESYLATE 1 MG TAB PO SCH (07:18)
[2021-11-08] MEDS: hydrALAZINE TAB 50 MG TAB PO SCH ×3 (07:18→20:07)
[2021-11-08] MEDS: ARMOUR THYROID 30 MG TAB PO SCH (07:18)
[2021-11-08] MEDS: amLODIPine BESYLATE 5 MG TAB PO SCH ×2 (07:19→20:08)
[2021-11-08] MEDS: EUCERIN CR 120 GM JAR TOP SCH ×2 (07:19→20:07)
[2021-11-08] MEDS: UMECLIDINIUM/VILANTEROL 62.5/25MCG 7 PUFFS/INHALER INH SCH (07:19)
[2021-11-08] MEDS: HEPARIN SOD 5,000 UNIT/0.5 ML VIAL SQ SCH ×2 (07:20→20:07)
[2021-11-08 07:45] LABS: BUN Creatinine Ratio 25.9 (10-20); Calcium 9.2 mg/dl (8.5-10.1); Creatinine Clr Calc Pharmacy 47.7 ml/min; Est GFR (African American) 58.9 ml/min; Est GFR (Non-African American) 50.8 ml/min; Magnesium 1.9 mg/dl (1.7-2.4); Potassium 4.8 mmol/L (3.5-5.1)
--- NOTE | 2021-11-08 08:13 | Nephrology Progress Note ---
Date of Service November 08, 2021 Assessment & Plan (1) Acute hyperkalemia: Plan: * Resolved * Continue low potassium diet * Potassium exchange resin has been stopped * Continue Furosemide for kaliuresis and BP management (2) Hypertension, uncontrolled: Plan: * Continue low Na, low K diet * Continue Amlodipine 5 mg po BID * Change Furosemide to 20 mg po BID * Stop Doxazosin (tachyphylaxis), increase Hydralazine to 50 mg po TID. This will help to simplify medical regimen (3) CKD (chronic kidney disease): Plan: * CKD stage G3a/A3. Urinary protein ~ 6g/day. Possible DKD, FSGS * Consider BETZAIDA/ARB only once serum K well controlled * If discharge is anticipated, please have patient follow up w/ Dr. Sanchez in 1 - 2 weeks (4) Renal artery stenosis: Plan: * Unilateral - no emergent indication for intervention (5) Symptomatic bradycardia: Plan: * Resolved following correction of serum K * Avoid beta ryan therapy Admission and Anticipated Discharge Date Admission Date: November 05, 2021 Subjective Miss Marquez was evaluated in her hospital room this morning. She denied palpitations or dyspnea. She reports getting up to use the BR yesterday without orthostasis Review of Systems Constitutional: no fever Eyes: no problem reported Ear, Nose, Mouth, Throat: no problem reported Respiratory: no cough and no dyspnea Cardiovascular: no chest pain, no palpitations and no edema Gastrointestinal: no abdominal pain, no nausea, no vomiting and no diarrhea/loose stools Genitourinary: no dysuria and no hematuria Musculoskeletal: no back pain Integumentary: no rash Neurologic: no falls and no dizziness Physical Exam Constitutional: not in distress Eyes: PERRL, conjunctivae normal, anicteric sclerae ENMT: external ear and nose normal, oropharynx normal Neck: trachea midline, no thyromegaly Respiratory: normal respiratory effort, lungs clear to auscultation Cardiovascular: RRR, no murmur, no edema Gastrointestinal (Abdomen): normal bowel sounds, soft, nontender, no hepatosplenomegaly Skin: no rashes, warm and dry Results & Data ([facility]) Vital Signs (Past 12 Hours) Vital Signs Temp Pulse Pulse Resp BP BP Pulse Ox 11/08/21 07:14 36.6 C 72 16 156/57 H 96 11/08/21 03:22 36.8 C 94 H 24 143/63 H 96 11/08/21 00:00 88 11/07/21 23:19 36.8 C 83 14 152/56 H 97 Laboratory Results Laboratory Tests 11/08/21 07:08 Sodium 136 Potassium 4.8 Chloride 107 Carbon Dioxide 24 BUN 30 H Creatinine 1.16 Glucose 152 H Calcium 9.2 Magnesium 1.9 PG Care Time/CCT Total # of Minutes Spent Total Time Spent with Patient: Total time spent is greater than 50% in coordination of care (as documented) at patient's floor/unit and/or counseling patient: Coding Level of Care Code 04864 Subseq Hosp Care Lvl 3 Diagnoses Acute hyperkalemia E87.5 Hypertension, uncontrolled I10 CKD (chronic kidney disease) N18.9 Renal artery stenosis I70.1 Symptomatic bradycardia R00.1
[2021-11-08] MEDS: INSULIN ASPART PER UNIT SC SCH ×4 (08:23→20:12)
[2021-11-08] MEDS: INSULIN GLARGINE SOLOSTAR 100 UNITS/ML 3 ML PEN SC SCH ×2 (08:24→20:13)
[2021-11-08] MEDS ORDERED: hydroCHLOROthiazide 25 MG TAB PO SCH (09:00)
[2021-11-08] MEDS ORDERED: bisacodyL 5 MG TABEC PO ONE (11:52)
--- NOTE | 2021-11-08 11:52 | Hospitalist Progress Note ---
Date of Service November 08, 2021 Assessment & Plan (1) Junctional bradycardia: Plan: 2nd to #2 below. resolved s/p Rx of hyperkalemia. has remained in NSR since initial conversion back to sinus while awaiting admission in the ER. She continues to not be on any AV richardson agents. Beta ryan was stopped during prior admission 2nd to bradycardia. I called the [facility] yesterday & [facility] She confirmed that Ms Marquez did NOT receive ANY beta ryan upon return to the senior living after her last hospitalization. Appreciate cardiology consultation; no plans for any pacemaker, etc. Simply observe on telemetry. (2) Hyperkalemia: Plan: resolved -- s/p usual Rx including K-binding agents (veltassa), NaBicarbonate, Calcium, etc. can stop daily veltassa. etiology uncertain. During the previous visit her K level was top-normal as well. She is not on BETZAIDA or ARB therapy, potassium supplementation or any other medication that would cause high K levels. Renal function is intact. cortisol level not suggestive of adrenal insufficiency. ABG without acidosis. CPK wnl. hypoaldosteronism? other kidney defect leading to lack of potassium excretion at the level of the kidney? other? nephrology consult appreciated. patient could have pseudohypoaldosteronism. nephrology recommending thiazide diuretic vs loop diuretic. Dr Martinez stopped the HCTZ and put her back on lasix - changed dosing to 20mg BID. cont low K diet. repeat BMP am. (3) COPD (chronic obstructive pulmonary disease): Plan: no exacerbation at this time cont outpatient inhalers (4) Diastolic heart failure: Plan: remains compensated at this time see above re: diuretic therapy (5) Hypertension, uncontrolled: Plan: cont amlodipine 5mg BID HCTZ stopped; lasix resumed at 20mg BID doxazosin stopped by nephrology today cont hydralazine but change from BID to TID dosing per Dr Martinez work-up for pheochromocytoma sent and pending has unilateral renal artery stenosis but unlikely contributing to BP issues appreciate recs from cardiology and nephrology watch BPs overnight (6) Renal artery stenosis: Plan: unilateral right-sided not critical level no urgent intervention needed but needs to be followed with time (7) Diabetes: Plan: increase lantus to 9 units BID adjust novolog today if AC sugars remain high (8) History of tobacco use: (9) Chronic alcohol use: Plan: no signs of etoh withdrawal (10) DVT prophylaxis: Plan: heparin 5000 TID (11) Hypothyroid: Plan: TSH continues to remain high; level of 19 on day of admission there is mention in the previous d/c summary that she had not been compliant with her levothyroxine due to side effects the levothyroxine was restarted at 25mcg daily during prior stay, then increased to 50mcg on day of admission here she is refusing the levothyroixine changed to [place] Thyroid 30mg daily recheck TSH in 6 weeks as outpatient (12) Constipation: Plan: add dulcolax PO x 1 now add miralax once daily standing Plan: observe overnight due to BP med changes trend BPs repeat BMP in am to ensure stable K level if BPs/K level are acceptable overnight then d/c back to senior living on Thursday, 11/09 Admission and Anticipated Discharge Date Admission Date: November 05, 2021 Subjective no events overnight tele with NSR she c/o ongoing constipation despite such no nausea/emesis eating well no cp, no dyspnea, no dizziness guards noted she may be [facility] from [facility] to another senior living after discharge Review of Systems Review of Systems: gen - no fevers; good energy/appetite cv - no orthopnea pulm - no cough or dyspnea GI - no abd pain musculo - had a fleeting L foot pain in mid-foot on sole earlier today, now resolved Physical Exam Physical Exam: gen - a/o x3, NAD, looks good mouth - MMM neck - no JVD heart - RRR, s1 s2, 2/6 holosystolic murmur RUSB and LSB lungs - CTA b/l; mildly decreased BS bases abd - soft NT ND BS+ ext - no edema, pulses 2+ b/l, left foot TMA musculo - no synovitis of left mid-foot; no tenderness to palpation; no gross abnormality Results & Data Results & Data ([facility]) Vital Signs (Past 12 Hours) Vital Signs Temp Pulse Pulse Resp BP Pulse Ox 11/08/21 08:00 72 11/08/21 07:14 36.6 C 72 16 156/57 H 96 11/08/21 03:22 36.8 C 94 H 24 143/63 H 96 11/08/21 00:00 88 Laboratory Results Laboratory Results - last 24 hr 11/07/21 11/07/21 11/07/21 16:28 20:34 23:26 Sodium Potassium Chloride Carbon Dioxide Anion Gap BUN Creatinine Est Cr Clr Drug Dosing Est GFR ( Amer) Est GFR (Non-Af Amer) BUN/Creatinine Ratio Glucose POC Glucose 222 H 191 H 141 H Calcium Magnesium 11/08/21 11/08/21 11/08/21 02:14 05:46 07:08 Sodium Cancelled 136 Potassium Cancelled 4.8 Chloride Cancelled 107 Carbon Dioxide Cancelled 24 Anion Gap Cancelled 5 BUN Cancelled 30 H Creatinine Cancelled 1.16 Est Cr Clr Drug Dosing Cancelled 47.7 Est GFR ( Amer) Cancelled 58.9 Est GFR (Non-Af Amer) Cancelled 50.8 BUN/Creatinine Ratio Cancelled 25.9 H Glucose Cancelled 152 H POC Glucose 143 H Calcium Cancelled 9.2 Magnesium 1.9 11/08/21 11/08/21 07:31 11:14 Sodium Potassium Chloride Carbon Dioxide Anion Gap BUN Creatinine Est Cr Clr Drug Dosing Est GFR ( Amer) Est GFR (Non-Af Amer) BUN/Creatinine Ratio Glucose POC Glucose 152 H 228 H Calcium Magnesium PG Care Time/CCT Total # of Minutes Spent Total Time Spent with Patient: Total time spent is greater than 50% in coordination of care (as documented) at patient's floor/unit and/or counseling patient: Coding Level of Care Code 26112 Subseq Hosp Care Lvl 2 Diagnoses Junctional bradycardia R00.1 Hyperkalemia E87.5 COPD (chronic obstructive pulmonary disease) J44.9 COPD type: unspecified COPD Diastolic heart failure I50.30 Hypertension, uncontrolled I10 Renal artery stenosis I70.1 Diabetes E11.9 History of tobacco use Z87.891 Chronic alcohol use Z72.89 DVT prophylaxis Z29.9 Hypothyroid E03.9 Constipation K59.00 (1) COPD (chronic obstructive pulmonary disease) COPD type: unspecified COPD Qualified Code(s): J44.9 - Chronic obstructive pulmonary disease, unspecified
[2021-11-08] MEDS: POLYETHYLENE (MIRALAX) 17 GM PACK PO SCH (12:00)
[2021-11-08] MEDS: PATIROMER CALCIUM SORBITEX 8.4 GM PACK PO SCH (12:06)
[2021-11-08] MEDS: FUROSEMIDE 20 MG TAB PO SCH (17:33)
[2021-11-08] MEDS: ACETAMINOPHEN 325 MG TAB PO PRN (20:11)
[2021-11-09 06:41] LABS: BUN Creatinine Ratio 30.2 (10-20); Calcium 9.3 mg/dl (8.5-10.1); Creatinine Clr Calc Pharmacy 52.2 ml/min; Est GFR (African American) 65.6 ml/min; Est GFR (Non-African American) 56.6 ml/min; Magnesium 1.8 mg/dl (1.7-2.4); Potassium 4.6 mmol/L (3.5-5.1)
[2021-11-09] MEDS: EUCERIN CR 120 GM JAR TOP SCH (07:47)
[2021-11-09] MEDS: amLODIPine BESYLATE 5 MG TAB PO SCH (07:47)
[2021-11-09] MEDS: hydrALAZINE TAB 50 MG TAB PO SCH (07:48)
[2021-11-09] MEDS: ARMOUR THYROID 30 MG TAB PO SCH (07:48)
[2021-11-09] MEDS: POLYETHYLENE (MIRALAX) 17 GM PACK PO SCH (07:49)
[2021-11-09] MEDS: UMECLIDINIUM/VILANTEROL 62.5/25MCG 7 PUFFS/INHALER INH SCH (07:49)
[2021-11-09] MEDS: HEPARIN SOD 5,000 UNIT/0.5 ML VIAL SQ SCH (07:50)
[2021-11-09] MEDS: FUROSEMIDE 20 MG TAB PO SCH (07:50)
[2021-11-09] MEDS: INSULIN ASPART PER UNIT SC SCH ×2 (07:51→12:17)
[2021-11-09] MEDS: INSULIN GLARGINE SOLOSTAR 100 UNITS/ML 3 ML PEN SC SCH (08:00)
--- NOTE | 2021-11-09 08:28 | Nephrology Progress Note ---
Date of Service November 09, 2021 Assessment & Plan (1) Acute hyperkalemia: Plan: * Resolved * Continue low potassium diet * Potassium exchange resin has been stopped * Continue Furosemide for kaliuresis and BP management (2) Hypertension, uncontrolled: Plan: * SBP 140 - 160 mm Hg last 24 hours * Continue low Na, low K diet * Continue Amlodipine 5 mg po BID, Furosemide 20 mg po BID * Increase Hydralazine to 75 mg po TID * Consider low dose BETZAIDA/ARB as outpatient once serum K is reliably < 4.5 (3) CKD (chronic kidney disease): Plan: * CKD stage G3a/A3. Urinary protein ~ 6g/day. Possible DKD, FSGS * Consider BETZAIDA/ARB only once serum K reliably < 4.5 * If discharge is anticipated, please have patient follow up w/ Dr. Sanchez in 1 - 2 weeks (4) Renal artery stenosis: Plan: * Unilateral - no emergent indication for intervention (5) Symptomatic bradycardia: Plan: * Resolved following correction of serum K * Avoid beta ryan therapy Admission and Anticipated Discharge Date Admission Date: November 05, 2021 Subjective Miss Marquez was evaluated in her hospital room this morning. She denied palpitations, dyspnea or orthostasis. She voiced no new medical concerns. Review of Systems Constitutional: no fever Eyes: no problem reported Ear, Nose, Mouth, Throat: no problem reported Respiratory: no cough and no dyspnea Cardiovascular: no chest pain, no palpitations and no edema Gastrointestinal: no abdominal pain, no nausea, no vomiting and no diarrhea/loose stools Genitourinary: no dysuria and no hematuria Musculoskeletal: no back pain Integumentary: no rash Neurologic: no falls and no dizziness Hematologic / Lymphatic: no problem reported Physical Exam Constitutional: not in distress Eyes: PERRL, conjunctivae normal, anicteric sclerae ENMT: external ear and nose normal, oropharynx normal Neck: trachea midline, no thyromegaly Respiratory: normal respiratory effort, lungs clear to auscultation Cardiovascular: RRR, no murmur, no edema Gastrointestinal (Abdomen): normal bowel sounds, soft, nontender, no hepatosp lenomegaly Skin: no rashes, warm and dry Results & Data ([facility]) Vital Signs (Past 12 Hours) Vital Signs Temp Pulse Pulse Resp BP BP Pulse Ox 11/09/21 07:56 36.6 C 94 H 18 158/69 H 94 04/16/22 04:21 36.7 C 78 18 157/67 H 97 11/08/21 22:43 77 11/08/21 22:13 37.0 C 79 18 144/60 H 96 Laboratory Results Laboratory Tests 11/06/21 11/09/21 05:03 05:49 WBC 6.62 Hgb 10.6 L Hct 32.2 L Plt Count 323 Sodium 137 Potassium 4.6 Chloride 107 Carbon Dioxide 23 BUN 32 H Creatinine 1.06 Glucose 146 H Calcium 9.3 Magnesium 1.8 PG Care Time/CCT Total # of Minutes Spent Total Time Spent with Patient: Total time spent is greater than 50% in coordination of care (as documented) at patient's floor/unit and/or counseling patient: Coding Level of Care Code 43124 Subseq Hosp Care Lvl 3 Diagnoses Acute hyperkalemia E87.5 Hypertension, uncontrolled I10 CKD (chronic kidney disease) N18.9 Renal artery stenosis I70.1 Symptomatic bradycardia R00.1
--- NOTE | 2021-11-09 11:02 | Discharge Summary ---
Date of Service date of admission - November 05, 2021 date of discharge - November 09, 2021 Admission HPI Per Admitting Provider 61yo female - recent hospital stay for acute/chronic HFpEF and HTN emergency - presents from [facility] with simply feeling unwell starting this am. Since being released from [facility] last week (discharge: 10/31/21) she has felt in her usual state of health with no dyspnea, chest pain, or worsening LE edema. She saw the [facility] doctor yesterday and was told that everything was stable. This am she awoke feeling ok. Took her usual medications and ate a good breakfast. Then took a brief nap. Upon awakening she knew "something wasn't right." She could tell her pulse was low. She had a slight headache but no diaphoresis, nausea, emesis, abd pain, chest pain or dizziness/lightheadedness. Upon arrival to [facility] she was in a junctional rhythm with HR about 40 and K was 6.5. Given insulin/D50 and calcium. During my assessment I ordered amp of sodium bicarbonate. Following slow push of such by nursing her HR improved from the 50s (junctional) to high 90s (NSR). Principal Diagnosis 1. Junctional bradycardia - 2nd to hyperkalemia - resolved, has not recurred 2. Hyperkalemia - resolved; exact etiology uncertain but felt to be due to impaired renal excretion Discharge Exam gen - a/o x3, NAD, looks good mouth - MMM neck - no JVD heart - RRR, s1 s2, 2/6 holosystolic murmur RUSB and LSB lungs - CTA b/l; mildly decreased BS bases abd - soft NT ND BS+ ext - no edema, pulses 2+ b/l, left foot TMA skin - tattoos, no rash Discharge Data Allergies Allergy/AdvReac Type Severity Reaction Status Date / Time No Known Allergies Allergy Verified 11/05/21 13:18 Consultations [employer] M Routine [facility] Nephrology [facility] Cardiology Ordered Studies Chest X-Ray 11/05/21 11:14 XR chest 1V portable HISTORY: 61 years-old Female Chest Pain acute atypical chest pain COMPARISON: Chest radiograph 10/29/2021 TECHNIQUE: Portable AP view of the chest FINDINGS: The cardiac silhouette is enlarged. Pulmonary vascular congestion with improved pulmonary edema. No pneumothorax. Probable trace pleural effusions. Mild bibasilar opacities suggest atelectasis. Bones appear grossly intact. IMPRESSION: 1. Cardiomegaly with improved pulmonary edema. 2. Trace pleural effusions with mild bibasilar atelectasis. ACT 112: Negative or not required by law. The above report was generated using voice recognition software. It may contain grammatical, syntax or spelling errors. Electronically signed by: Olman Rodriguez M.D. 11/05/2021 11:42 AM Hospital Course (1) Junctional bradycardia: 2nd to #2 below. Resolved s/p Rx of hyperkalemia. She remained in NSR since initial conversion back to sinus rhythm while in the ER. No recurrent junctional bradycardia or any other dysrhythmia moving forward. Beta ryan was stopped during prior admission 2nd to bradycardia. She is not on any AV richardson agent. [facility]. The junctional bradycardia was felt to be due to the high potassium rather than intrinsic conduction disease. Thus, pacemaker was not recommended. She should not be placed on ANY AV richardson agent that could cause bradycardia (no beta blockers, calcium channel blockers, etc). (2) Hyperkalemia: resolved -- s/p usual Rx including K-binding agents (veltassa), NaBicarbonate, Calcium, etc. etiology uncertain. During the previous hospitalization her K level was top-normal at that time as well. She is not on BETZAIDA or ARB therapy, potassium supplementation or any other medication that would cause high K levels. Renal function is intact. Cortisol level was normal ruling out adrenal insufficiency. ABG without acidosis thus no renal tubular acidosis. CPK wnl thus no rhabdomyolysis. hypoaldosteronism? other kidney defect leading to lack of potassium excretion at the level of the kidney? other? 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 nephrology recommended ongoing use of either thiazide diuretic or loop diuretic. lasix was recommended at a dose of 20mg BID. in addition she should continue on a low K diet. Recommend close monitoring of renal function and potassium. Thus, check BMP on 11/12/21 and 11/18/21 and prn thereafter. Would also check magnesium level on 11/12/21 for stability. (3) COPD (chronic obstructive pulmonary disease): no exacerbation during the hospital stay cont outpatient inhalers O2 sats were normal while here (4) Diastolic heart failure: She was compensated the entire visit. Daily weights, fluid restriction to 1800cc, etc all recommended at time of discharge. (5) Hypertension, uncontrolled: During the patient's prior hospitalization (10/21 to 10/31/21) she had hypertensive emergency. Throughout this stay her BPs were high & labile; thus, her medication regimen was adjusted several times again. Regimen at discharge- * amlodipine 5mg BID * lasix 20mg BID - give at 9am and 5pm * hydralazine 75mg TID Doxazosin was STOPPED. work-up for pheochromocytoma sent and pending at time of discharge. has unilateral renal artery stenosis on the right but unlikely contributing to BP issues at this time. [id number] she should have non-urgent follow-up with a vascular surgeon for this. Again do NOT use any AV richardson agent moving forward. (6) Renal artery stenosis: unilateral right-sided 60-70% stenosis no urgent intervention needed but needs to be followed with time by vascular surgery (7) Diabetes: Most recent HbA1c 6.8% Insulin regimen at discharge - * lantus 10 units BID * novolog 6 units with breakfast, 6 units with lunch, and 8 units with dinner (8) History of tobacco use: (9) Chronic alcohol use: no signs of etoh withdrawal during the stay (10) Hypothyroid: TSH continues to remain high; level of 19 on day of admission there is mention in the previous d/c summary that she had not been compliant with her levothyroxine due to side effects the levothyroxine was restarted at 25mcg daily during prior stay, then increased to 50mcg on day of admission here however, like the prior hospitalization, again she refused the levothyroixine Levothyroxine was thus CHANGED to [place] Thyroid 30mg daily recheck TSH in 6 weeks as outpatient (11) Constipation: Continue miralax + senna daily as bowel maintenance Total Time Total Time Spent Total Time Spent (In Minutes): 45 Discharge Plan Discharge Items [facility] Reason For Visit: HYPERKALEMIA, JUNCTIONAL BRADYCARDIA Discharge Diagnosis: 1. hyperkalemia - resolved. Uncertain cause but thought to be due to impaired renal excretion. Follow-up with nephrology needed. 2. junctional bradycardia - resolved with normalization of the potassium. 3. right-sided renal artery stenosis, 60-70% stenosis - non-urgent follow-up with vascular surgery needed. 4. [id number]-sj-[id number] hypertension. 5. chronic heart failure with preserved ejection fraction. 6. COPD. 7. constipation. 8. type 2 diabetes. Activity: Resume your previous activity Non-emergency contact: Primary Care Provider and Phys Therapist Call non-emergency contact if: you have any medication questions and your sympt oms worsen Follow-up/Referrals: Jose Daniel Sanchez DO [Physician] - (if Ms Marquez is still in the [place] area she should see Dr Sanchez in 2 weeks; if transferred out of the region she should see a agriculture technician available in the new location. ) [facility] [Primary Care Provider] - (see medical billing assistant of [facility] within 48 hours ) Diet: Carb Consistent or DM2 and Low Potassium (2gm) Fluids: 1800ml (7 cups) Addtl Attending Provider Instructions: Ms Marquez was treated for the problems listed above in "discharge diagnoses." Recommendations -- 1. check fingerstick blood sugars before meals and at bedtime 2. new insulin regimen - * lantus 10 units in the AM and 10 units in the PM * novolog - * 6 units with breakfast * 6 units with lunch * 8 units with dinner 3. check BMP (basic metabolic panel) AND magnesium level on 11/12/21; results to medical billing assistant 4. check BMP on 11/18/21; results to medical billing assistant 5. repeat TSH in 6 weeks; results to medical billing assistant 6. miralax daily + senna 2 tabs daily for constipation 7. daily weights on standing scale; call medical billing assistant if any weight gain of more than 2-3 pounds in 1-2 days 8. follow-up - * non-urgent vascular consultation/follow-up - diagnosis: right-sided renal artery stenosis * nephrology - 2 weeks (either with Dr Jose Daniel Sanchez, [facility]; OR - if patient is transferred outside the [facility] - any agriculture technician in the new location where Ms Marquez will be) * [facility] medical billing assistant within 48 hours 9. low potassium diet / diabetic diet Pending Studies at Discharge: Yes Studies:: metanephrines Stand-Alone Forms: My [facility] Skilled Items Patient informed of condition?: Yes Discharge Level of Care: Other Communicable Disease: No Discharge Prognosis: Stable Lines: None Urinary Catheter: No Medications and DC Order Prescriptions: New polyethylene glycol 3350 [Miralax] 17 gram Powder In Packet 17 g PO DAILY Qty: 30 RF: 2 hydralazine 25 mg Tablet 75 mg PO TID 30 Days Qty: 270 RF: 2 insulin aspart U-100 [Novolog U-100 Insulin aspart] 100 unit/mL Solution See Rx Instructions .ROUTE .COMPLEX Qty: 10 RF: 2 Lantus Solostar U-100 Insulin 100 unit/mL (3 mL) Insulin Pen 10 unit SC BID Qty: 15 RF: 2 thyroid (pork) [[place] Thyroid] 30 mg Tablet 30 mg PO QAM Qty: 30 RF: 2 Anoro Ellipta 62.5-25 mcg/actuation Blister With Device 1 puff inhalation DAILY Qty: 30 RF: 2 sennosides [Senna Lax] 8.6 mg tablet 17.2 mg PO DAILY Qty: 60 RF: 1 Continued albuterol sulfate 2.5 mg /3 mL (0.083 %) Solution For Nebulization 2.5 mg INHALATION QID PRN (Reason: Shortness Of Breath Or Wheezing) RF: 0 acetaminophen [Tylenol Arthritis Pain] 650 mg Tablet Extended Release 650 mg PO TID PRN (Reason: Pain) RF: 0 amlodipine [Norvasc] 5 mg Tablet 5 mg PO BID Qty: 60 RF: 0 Eucerin Cream 1 applic TOPICAL BID RF: 0 Changed furosemide [Lasix] 20 mg Tablet 20 mg PO BID Qty: 60 RF: 2 Discontinued levothyroxine 25 mcg Tablet 25 mcg PO DAILY RF: 0 Novolin N NPH U-100 Insulin 100 unit/mL Suspension 18 unit SUBCUT QAM RF: 0 Novolin N NPH U-100 Insulin 100 unit/mL Suspension 16 unit SUBCUT HS RF: 0 doxazosin 1 mg tablet 3 mg PO BID RF: 0 Discharge Orders: Discharge Order (Routine); Ordered 11/09/21 Ordered By: David Quarels/Other Patient Handouts: Low Potassium Diet Dc Admission Data Admit Date/Time: 11/05/21 13:48 Attending Provider: David Shabazz Admit Provider: David Shabazz Primary Care Provider: [facility] Other Providers: David Shabazz ; Brandie Downey ; Jose Daniel Sanchez ; Camden Mccormick Coding Level of Care Code D/C DAY MANAGEMENT >30 MINS Diagnoses Junctional bradycardia R00.1 Hyperkalemia E87.5 COPD (chronic obstructive pulmonary disease) J44.9 COPD type: unspecified COPD Diastolic heart failure I50.30 Hypertension, uncontrolled I10 Renal artery stenosis I70.1 Diabetes E11.9 History of tobacco use Z87.891 Chronic alcohol use Z72.89 Hypothyroid E03.9 Constipation K59.00
[2021-11-09] MEDS ORDERED: hydrALAZINE HCL 25 MG TAB PO SCH (14:00)
[2021-11-09 15:20] LABS: Uric Acid, Random Urine 15 mg/dL
== END 2021-11-09 13:02 | DRG 641 ==
LOC: ED 10:59 → 1E 13:48 → 2E 11-07 18:48
DX: K59.00 Constipation, unspecified; E87.1 Hypo-osmolality and hyponatremia; Z89.432 Acquired absence of left foot; I13.0 Hypertensive heart and chronic kidney disease with heart failure and stage 1 through stage 4 chronic kidney disease, or unspecified chronic kidney disease; Z87.891 Personal history of nicotine dependence; E78.5 Hyperlipidemia, unspecified; I70.1 Atherosclerosis of renal artery; E11.40 Type 2 diabetes mellitus with diabetic neuropathy, unspecified; Z79.890 Hormone replacement therapy; M62.82 Rhabdomyolysis; N18.30 Chronic kidney disease, stage 3 unspecified; J44.9 Chronic obstructive pulmonary disease, unspecified; E03.9 Hypothyroidism, unspecified; E87.5 Hyperkalemia; E11.22 Type 2 diabetes mellitus with diabetic chronic kidney disease; Z79.4 Long term (current) use of insulin; I50.32 Chronic diastolic (congestive) heart failure